=== PATIENT | female | born 1940 | race Caucasian/White ===

== ENCOUNTER → 2016-06-22 | Outpatient (CLI) | payer OTHER ==
[~2016-06-22] MED LIST: ALPR-411 PO; AMIO200T PO; AMLO-110 PO; CALC625T4 PO; CALCTAB5 PO; CIPR1TAB11 PO; CYAN10005 PO; FURO20TA PO; GLC/500 PO; LEVO125T72 PO; LISI40TA PO; MAGN400T5 PO; METO50TA16 PO; MULT-506 PO; SIMV20TA2 PO; SULF800T23 PO; WARF-246 PO
[2016-06-22 11:44] LABS: BASO % 0.4 %; BASO ABS # 0.05 K/uL (0-0.2); COMPLETE YES; EOS % 8.5 %; HEMATOCRIT 35.3 % (37-47); IG% 0.3 %; LYMPH % 17.5 %; LYMPH ABS # 2.01 K/uL (1.2-3.4); MEAN CELL VOLUME 90.1 fL (80-100); MEAN CORPUSCULAR HEMOGLOBIN 30.1 pg (25-34); MEAN CORPUSCULAR HGB CONC 33.4 g/dl (32-36); MONO % 10.1 %; NEUT % 63.2 %; PLATELET COUNT 420 K/uL (130-400); RED BLOOD COUNT 3.92 M/uL (4.2-5.4); WHITE BLOOD COUNT 11.47 K/uL (4.8-10.8)
[2016-06-22 11:54] LABS: BLOOD UREA NITROGEN 15 mg/dl (7-18); GLUCOSE 84 mg/dl (70-99)
[2016-06-22 11:55] LABS: ALT/SGPT 29 U/L (12-78); AST/SGOT 27 U/L (15-37); BUN/CREATININE RATIO 11.2 (10-20); CARBON DIOXIDE 28 mmol/L (21-32); CHLORIDE 104 mmol/L (98-107); POTASSIUM 4.1 mmol/L (3.5-5.1); SODIUM 140 mmol/L (136-145)
[2016-06-22 12:03] LABS: ALKALINE PHOSPHATASE 50 U/L (45-117); PREALBUMIN 28.6 mg/dl (20-40)
--- NOTE | 2016-06-26 12:16 | CODING QUERY MEDICAL NECESSITY ---
SUPPORTING DIAGNOSIS NEEDED A supporting diagnosis is required for the test/procedure performed on this patient in order for us to be reimbursed by the patient's insurance. Please provide a supporting diagnosis for the following test/procedure listed below next to the test name along with your signature. *If there is no additional diagnosis for this patient that would support the following test/procedure please document that below next to the test/procedure. Test(s)/Procedure(s) that require a supporting diagnosis: * VITAMIN B-12 LEVEL DIAGNOSIS: * DOS: 06/22/16 Provider Signature: Date: Thank you Karyn Kate [facility] Information Management Once completed, please kindly fax back to [phone] For questions please call [phone]
== END | disposition home or self-care (01) ==
LOC: C.LAB1850 09:34
DX: R53.1 Weakness (principal)

== ENCOUNTER → 2016-06-26 | Outpatient (CLI) | payer OTHER ==
--- NOTE | 2016-06-26 09:40 | DIAGNOSTIC IMAGING REPORT ---
HEAD CT NONCONTRAST CT DOSE: 537.48 mGy.cm HISTORY: Fall. TECHNIQUE: Multiaxial CT images of the head were performed without the use of intravenous contrast. Automated exposure control was utilized for this study. Comparison: None. Findings: The paranasal sinuses and mastoid air cells are clear. The calvarium and skull base are intact. There is no mass, hematoma, midline shift, acute infarct. White matter hypodensity is nonspecific but suggestive of microvascular ischemic change. The ventricles and sulci demonstrate mild age-related involutional changes. Punctate calcification within the james. Impression: No acute intracranial abnormality. Electronically signed by: Js Rowe M.D. 06/26/2016 9:39 AM Dictated Date/Time: 06/26/2016 9:30 AM
== END | disposition home or self-care (01) ==
LOC: C.CTS 09:18
DX: R25.1 Tremor, unspecified (principal)

== ENCOUNTER → 2016-07-24 | Outpatient (CLI) | payer OTHER ==
[2016-07-24 10:07] LABS: BASO % 1.1 %; BASO ABS # 0.14 K/uL (0-0.2); COMPLETE YES; EOS % 18.9 %; HEMATOCRIT 36.9 % (37-47); IG% 0.4 %; LYMPH % 29.3 %; LYMPH ABS # 3.79 K/uL (1.2-3.4); MEAN CELL VOLUME 91.1 fL (80-100); MEAN CORPUSCULAR HEMOGLOBIN 29.6 pg (25-34); MEAN CORPUSCULAR HGB CONC 32.5 g/dl (32-36); MEAN PLATELET VOLUME 10.8 fL (7.4-10.4); MONO % 10.7 %; NEUT % 39.6 %; PLATELET COUNT 308 K/uL (130-400); RED BLOOD COUNT 4.05 M/uL (4.2-5.4); WHITE BLOOD COUNT 12.94 K/uL (4.8-10.8)
[2016-07-24 10:43] LABS: ALT/SGPT 26 U/L (12-78); AST/SGOT 22 U/L (15-37); BLOOD UREA NITROGEN 24 mg/dl (7-18); BUN/CREATININE RATIO 20.3 (10-20); CALCIUM 9.3 mg/dl (8.5-10.1); CARBON DIOXIDE 31 mmol/L (21-32); CHLORIDE 107 mmol/L (98-107); GLUCOSE 90 mg/dl (70-99); POTASSIUM 4.4 mmol/L (3.5-5.1); SODIUM 142 mmol/L (136-145)
[2016-07-24 10:54] LABS: CHOLESTEROL 117 mg/dl (0-200); CHOLESTEROL/HDL RATIO 2.2; HDL CHOLESTEROL 53 mg/dl; LDL CHOLESTEROL CALCULATED 46 mg/dl; TRIGLYCERIDES 92 mg/dl (0-150); VERY LOW DENSITY LIPOPROT CALC 18 mg/dl
== END | disposition home or self-care (01) ==
LOC: C.LAB1850 09:14
DX: E78.5 Hyperlipidemia, unspecified (principal); E03.9 Hypothyroidism, unspecified; I10 Essential (primary) hypertension; I48.91 Unspecified atrial fibrillation

== ENCOUNTER → 2016-08-03 | Outpatient (CLI) | payer OTHER ==
[2016-08-03 09:42] LABS: BASO % 1.8 %; BASO ABS # 0.19 K/uL (0-0.2); COMPLETE YES; EOS % 15.1 %; HEMATOCRIT 36.5 % (37-47); IG% 0.4 %; LYMPH % 28.5 %; LYMPH ABS # 3.01 K/uL (1.2-3.4); MEAN CELL VOLUME 91.9 fL (80-100); MEAN CORPUSCULAR HGB CONC 32.6 g/dl (32-36); MEAN PLATELET VOLUME 11.2 fL (7.4-10.4); MONO % 12.9 %; NEUT % 41.3 %; PLATELET COUNT 260 K/uL (130-400); RED BLOOD COUNT 3.97 M/uL (4.2-5.4); WHITE BLOOD COUNT 10.56 K/uL (4.8-10.8)
--- NOTE | 2016-08-07 09:44 | CODING QUERY MEDICAL NECESSITY ---
SUPPORTING DIAGNOSIS NEEDED A supporting diagnosis is required for the test/procedure performed on this patient in order for us to be reimbursed by the patient's insurance. Please provide a supporting diagnosis for the following test/procedure listed below next to the test name along with your signature. *If there is no additional diagnosis for this patient that would support the following test/procedure please document that below next to the test/procedure. Test(s)/Procedure(s) that require a supporting diagnosis: DOS 08/03 * Vitamin B12 DIAGNOSIS: Provider Signature: Date: Thank you Jewels Girard Health Information Management Once completed, please kindly fax back to [phone] For questions please call [phone]
== END | disposition home or self-care (01) ==
LOC: C.LAB1850 07:46
DX: D72.829 Elevated white blood cell count, unspecified (principal); D64.9 Anemia, unspecified

== ENCOUNTER → 2016-10-26 | Outpatient (CLI) | payer OTHER ==
[~2016-10-26] MED LIST changes: +AMIO200T4 PO; +ATOR-54 PO; +CALC-51 PEG; +CALCTAB5; +DXY100 PO; +LEVO75TA5 PO; +PIPE1INJ11 IV; +WARF2.5T8 PO; +WARF5TAB7 PO
== END | disposition home or self-care (01) ==
LOC: C.LABSPEC 14:59
DX: R31.9 Hematuria, unspecified (principal)

== ENCOUNTER → 2016-11-09 | Outpatient (CLI) | payer OTHER ==
[~2016-11-09] MED LIST changes: -AMIO200T4 PO; -ATOR-54 PO; -CALC-51 PEG; -CALCTAB5; -DXY100 PO; -LEVO75TA5 PO; -PIPE1INJ11 IV; -WARF2.5T8 PO; -WARF5TAB7 PO
== END | disposition home or self-care (01) ==
LOC: C.LABSPEC 14:51
DX: R30.0 Dysuria (principal)

== ENCOUNTER → 2016-11-20 | Outpatient (CLI) | payer OTHER ==
--- NOTE | 2016-11-20 12:53 | DIAGNOSTIC IMAGING REPORT ---
Duplex renal artery ultrasound CLINICAL HISTORY: LEFT FLANK BRUIT COMPARISON STUDY: No previous studies for comparison. FINDINGS: Grayscale imaging was supplemented with real-time color-flow analysis and spectral wave analysis. The right kidney measured 8.8 cm in length. The left kidney measured 9.3 cm in length. The peak systolic velocity within the aorta was 79 cm/s. The peak systolic velocity within the right renal artery was 135 cm/s. The peak systolic velocity within the left renal artery was 123 cm/s. There is no evidence of renal artery stenosis by velocity criteria. The resistive indices were elevated bilaterally. IMPRESSION: No ultrasonographic evidence of renal artery stenosis. Electronically signed by: Stafnord Tyson M.D. 11/20/2016 12:51 PM Dictated Date/Time: 11/20/2016 12:49 PM
--- NOTE | 2016-11-20 13:41 | DIAGNOSTIC IMAGING REPORT ---
DUPLEX AORTA/IVC/ILIACS LTD HISTORY:76 yearsFemaleLEFT FLANK BRUIT COMPARISON: CT abdomen and pelvis 07/14/2012. TECHNIQUE: Multiple real-time sonographic images of the abdominal aorta and iliac vasculature were obtained assessing grayscale appearance, color and spectral flow. FINDINGS: Proximal abdominal aorta measures 2.2 x 2.0 cm. The mid abdominal aorta measures 1.6 x 1.3 cm. The distal abdominal aorta measures 1.4 x 1.2 cm. Mild mixed plaquing is seen throughout the abdominal aorta. Normal plug flow is seen within the aorta with peak systolic velocity 128 cm/s. Normal-appearing iliac bifurcation is noted. Right iliac artery measures up to 0.7 cm and the left measures up to 1.0 cm. Peak systolic velocity within the right iliac vasculature is 102 cm/s and on the left measures 121 cm/s. Normal phasic flow is seen within the IVC. IMPRESSION: 1. Unremarkable sonographic study of the abdominal aorta, IVC and iliac vasculature. 2. Mild atherosclerotic plaquing of the aorta without elevated velocities identified. 3. No evidence of aneurysmal dilation. The above report was generated using voice recognition software. It may contain grammatical, syntax or spelling errors. Electronically signed by: Graham Charles M.D. 11/20/2016 1:39 PM Dictated Date/Time: 11/20/2016 1:35 PM
== END | disposition home or self-care (01) ==
LOC: C.ULTR 10:23
DX: R09.89 Other specified symptoms and signs involving the circulatory and respiratory systems (principal)

== ENCOUNTER → 2016-11-23 | Outpatient (CLI) | payer OTHER ==
[~2016-11-23] MED LIST changes: -CIPR1TAB11 PO; -SULF800T23 PO
[2016-11-23 13:52] LABS: BLOOD UREA NITROGEN 19 mg/dl (7-18); BUN/CREATININE RATIO 13.7 (10-20); CALCIUM 8.9 mg/dl (8.5-10.1); CARBON DIOXIDE 28 mmol/L (21-32); CHLORIDE 112 mmol/L (98-107); GLUCOSE 84 mg/dl (70-99); MAGNESIUM 2.1 mg/dl (1.8-2.4); POTASSIUM 3.6 mmol/L (3.5-5.1); SODIUM 146 mmol/L (136-145)
== END | disposition home or self-care (01) ==
LOC: C.LAB 11:57
DX: E86.0 Dehydration (principal)

== ENCOUNTER → 2016-12-11 | Outpatient (CLI) | payer OTHER ==
[2016-12-11 14:19] LABS: INR 1.8 (0.9-1.1)
[2016-12-11 14:20] LABS: ALT/SGPT 27 U/L (12-78); AST/SGOT 27 U/L (15-37); BLOOD UREA NITROGEN 20 mg/dl (7-18); BUN/CREATININE RATIO 15.1 (10-20); CARBON DIOXIDE 26 mmol/L (21-32); CHLORIDE 109 mmol/L (98-107); GLUCOSE 74 mg/dl (70-99); MAGNESIUM 2.6 mg/dl (1.8-2.4); SODIUM 142 mmol/L (136-145)
[2016-12-11 14:24] LABS: FERRITIN 53.9 ng/ml (8.0-388.0)
== END | disposition home or self-care (01) ==
LOC: C.LABSPEC 13:18
DX: G47.00 Insomnia, unspecified (principal); E11.9 Type 2 diabetes mellitus without complications; N18.3 Chronic kidney disease, stage 3 (moderate); E55.9 Vitamin D deficiency, unspecified

== ENCOUNTER → 2016-12-17 | Outpatient (CLI) | payer OTHER ==
[2016-12-17 15:15] LABS: BASO % 0.9 %; BASO ABS # 0.09 K/uL (0-0.2); COMPLETE YES; EOS % 4.3 %; HEMATOCRIT 34.4 % (37-47); IG% 0.4 %; LYMPH % 30.2 %; LYMPH ABS # 3.18 K/uL (1.2-3.4); MEAN CELL VOLUME 93.2 fL (80-100); MEAN CORPUSCULAR HEMOGLOBIN 29.3 pg (25-34); MEAN CORPUSCULAR HGB CONC 31.4 g/dl (32-36); MEAN PLATELET VOLUME 10.8 fL (7.4-10.4); MONO % 10.6 %; NEUT % 53.6 %; PLATELET COUNT 353 K/uL (130-400); RED BLOOD COUNT 3.69 M/uL (4.2-5.4); WHITE BLOOD COUNT 10.53 K/uL (4.8-10.8)
[2016-12-18 07:51] LABS: ESTIMATED AVERAGE GLUCOSE 114 mg/dl; HA1C FLAG Normal (Normal)
== END | disposition home or self-care (01) ==
LOC: C.LABSPEC 14:59
DX: E11.9 Type 2 diabetes mellitus without complications (principal)

== ENCOUNTER → 2016-12-25 | Outpatient (CLI) | payer OTHER ==
[2016-12-25 12:49] LABS: INR 1.9 (0.9-1.1)
--- NOTE | 2017-01-08 07:43 | CODING QUERY NO DIAGNOSIS ---
TREATMENT RENDERED WITHOUT A DIAGNOSIS : 01/08/17 To promote full compliance with coding requirements relating to patient care, physician participation is requested in all cases of biologist aide uncertainty. Please assist us with providing a diagnosis/symptom for the test(s) below: A diagnosis/symptom was not documented on your Order. A valid diagnosis/symptom is required to bill all insurances. Please remember that we are unable to code a diagnosis of rule out, probable, possible, questionable, or suspected. Tests that require a diagnosis: DOS: 12/25/16 * PROTHROMBIN TIME PRO DIAGNOSIS: Provider Signature: Date: Thank you Tara De Jesus Health Information Management Once completed, please kindly fax back to [phone] For questions please call [phone]
== END | disposition home or self-care (01) ==
LOC: C.LABSPEC 12:09
PROVIDERS: ATTEND Internal Medicine Interventional Cardiology
DX: I48.0 Paroxysmal atrial fibrillation (principal)

== ENCOUNTER → 2017-01-01 | Outpatient (CLI) | payer OTHER ==
[2017-01-01 10:41] LABS: INR 1.9 (0.9-1.1); PROTHROMBIN TIME (PATIENT) 21.2 SECONDS (9.0-12.0)
== END | disposition home or self-care (01) ==
LOC: C.LABSPEC 10:21
PROVIDERS: ATTEND Internal Medicine Interventional Cardiology
DX: Z79.01 Long term (current) use of anticoagulants (principal); Z51.81 Encounter for therapeutic drug level monitoring

== ENCOUNTER → 2017-01-08 | Outpatient (CLI) | payer OTHER ==
[~2017-01-08] MED LIST changes: -GLC/500 PO; -LISI40TA PO
[2017-01-08 12:34] LABS: INR 2.6 (0.9-1.1); PROTHROMBIN TIME (PATIENT) 28.7 SECONDS (9.0-12.0)
== END | disposition home or self-care (01) ==
LOC: C.LABSPEC 11:50
PROVIDERS: ATTEND Internal Medicine Interventional Cardiology
DX: Z79.01 Long term (current) use of anticoagulants (principal); Z51.81 Encounter for therapeutic drug level monitoring

== ENCOUNTER → 2017-01-14 | Outpatient (CLI) | payer OTHER ==
[2017-01-14 13:28] LABS: INR 2.6 (0.9-1.1); PROTHROMBIN TIME (PATIENT) 28.9 SECONDS (9.0-12.0)
--- NOTE | 2017-01-21 08:59 | CODING QUERY NO DIAGNOSIS ---
Valid Physician Order Needed A valid physician order must be submitted in order to properly bill for the service(s) provided, including date of service(s), valid diagnosis, and physician signature. If these tests are done on a recurring basis the original physican order must be submitted in order to code and bill for the service(s) provided. Please fax us the original, signed physician order so that we may expedite billing to [phone] DOS 01/14/17 * PROTHROMBIN TIME Thank you Karla Hernandes [facility] Information Management
--- NOTE | 2017-01-29 09:52 | CODING QUERY NO DIAGNOSIS ---
TREATMENT RENDERED WITHOUT A DIAGNOSIS To promote full compliance with coding requirements relating to patient care, physician participation is requested in all cases of arts and humanities council director uncertainty. Please assist us with providing a diagnosis/symptom for the test(s) below: A diagnosis/symptom was not documented on your Order. A valid diagnosis/symptom is required to bill all insurances. Please remember that we are unable to code a diagnosis of rule out, probable, possible, questionable, or suspected. DATE OF SERVICE: 01/14/17 Tests that require a diagnosis: * PROTHROMBIN TIME DIAGNOSIS: Provider Signature: Date: Thank you Karla Cruz [facility] Information Management Once completed, please kindly fax back to [phone] For questions please call [phone]
== END | disposition home or self-care (01) ==
LOC: C.LABSPEC 12:11
DX: I48.91 Unspecified atrial fibrillation (principal)

== ENCOUNTER 2017-03-10 14:18 | Emergency (ER) | payer OTHER ==
[~2017-03-10] VITALS: Ht 162.6 cm; Wt 50.0 kg
[2017-03-10 14:21] VITALS: TEMP 36.3; Ht 162.6 cm; Wt 50.0 kg
[2017-03-10] MEDS ORDERED: SODIUM CHLORIDE 0.9% 1000ML 1,000 ML IV STA (14:44)
[2017-03-10] MEDS ORDERED: ATOR-54 PO (14:55)
[2017-03-10] MEDS ORDERED: AMIO200T4 PO (14:55)
[2017-03-10] MEDS ORDERED: WARF2.5T8 PO (14:55)
[2017-03-10] MEDS ORDERED: WARF5TAB7 PO (14:55)
[2017-03-10] MEDS ORDERED: CALCTAB5 (14:55)
--- NOTE | 2017-03-10 15:09 | DIAGNOSTIC IMAGING REPORT ---
R PELVIS/UNILATERAL HIP 2-3VIEWS CLINICAL HISTORY: Fall. Right hip pain. COMPARISON: CT of the abdomen and pelvis July 14, 2012. FINDINGS: Alignment of the right hip is anatomic. There is no proximal right femoral fracture. Irregularity along the symphysis pubis is likely chronic. No definite acute fracture is identified within the pelvis or hips. IMPRESSION: No acute fracture within the pelvis or hips. Irregularity along the symphysis pubis is likely chronic. Electronically signed by: Davis Thompson M.D. 03/10/2017 3:08 PM Dictated Date/Time: 03/10/2017 3:06 PM
--- NOTE | 2017-03-10 15:11 | DIAGNOSTIC IMAGING REPORT ---
CHEST ONE VIEW PORTABLE HISTORY: 77 years-old Female EVALUATE FOR TRAUMA/INJURY acute chest injury status post trauma COMPARISON: Chest radiographs 11/20/2016 TECHNIQUE: Portable upright AP view of the chest FINDINGS: Cardiac silhouette is moderately enlarged, unchanged. Atherosclerosis of the aorta. There are calcifications of the tracheobronchial tree. Mild biapical pleural-parenchymal scarring without pneumothorax, pleural effusion or focal airspace consolidation. Chronic blunting the left costophrenic angle with chronic background interstitial coarsening. Hyperinflation with suggested emphysema. Linear subsegmental scarring or atelectasis of the right lung base, unchanged. The bones are grossly intact. IMPRESSION: No acute cardiopulmonary process. The above report was generated using voice recognition software. It may contain grammatical, syntax or spelling errors. Electronically signed by: Graham Charles M.D. 03/10/2017 3:10 PM Dictated Date/Time: 03/10/2017 3:08 PM
[2017-03-10 15:32] VITALS: O2SAT 99
[2017-03-10 15:54] LABS: BASO % 0.2 %; BASO ABS # 0.04 K/uL (0-0.2); COMPLETE YES; HEMATOCRIT 33.5 % (37-47); IG% 0.4 %; LYMPH % 6.7 %; LYMPH ABS # 1.08 K/uL (1.2-3.4); MEAN CELL VOLUME 92.5 fL (80-100); MEAN CORPUSCULAR HEMOGLOBIN 29.6 pg (25-34); MEAN CORPUSCULAR HGB CONC 31.9 g/dl (32-36); MEAN PLATELET VOLUME 10.5 fL (7.4-10.4); MONO % 6.1 %; NEUT % 86.6 %; PLATELET COUNT 322 K/uL (130-400); RED BLOOD COUNT 3.62 M/uL (4.2-5.4); WHITE BLOOD COUNT 16.14 K/uL (4.8-10.8)
[2017-03-10 15:59] LABS: INR 3.5 (0.9-1.1); PROTHROMBIN TIME (PATIENT) 39.8 SECONDS (9.0-12.0)
--- NOTE | 2017-03-10 16:01 | DIAGNOSTIC IMAGING REPORT ---
HEAD WITHOUT CONTRAST (CT) CLINICAL HISTORY: 77 years-old Female with EVALUATE FOR TRAUMA/INJURY. Acute altered mental status acute altered mental status with fall TECHNIQUE: Multiple axial CT images of the head were obtained without contrast. A dose lowering technique was utilized adhering to the principles of ALARA. CT DOSE: 679.75 mGycm COMPARISON: CT head 06/26/2016. FINDINGS: No acute intracranial hemorrhage, midline shift, mass, large territorial ischemia or abnormal extra-axial collection. Moderate atrophy, most pronounced within the frontal lobes. Unchanged linear calcification of the right james. Background chronic microvascular ischemic changes. The calvarium is intact. The paranasal sinuses, mastoid air cells, and middle ear cavities are clear. IMPRESSION: No acute intracranial abnormality. The above report was generated using voice recognition software. It may contain grammatical, syntax or spelling errors. Electronically signed by: Graham Charles M.D. 03/10/2017 4:00 PM Dictated Date/Time: 03/10/2017 3:58 PM
[2017-03-10 16:03] LABS: BUN/CREATININE RATIO 16.5 (10-20); CALCIUM 9.7 mg/dl (8.5-10.1); CREATININE 1.59 mg/dl (0.60-1.20); POTASSIUM 4.5 mmol/L (3.5-5.1)
--- NOTE | 2017-03-10 16:03 | DIAGNOSTIC IMAGING REPORT ---
CERVICAL SPINE W/O CT DOSE: 317.72 mGycm HISTORY: Trauma. Pain. EVALUATE FOR TRAUMA/INJURY TECHNIQUE: Multiaxial CT images of the cervical spine were performed and reformatted in the sagittal and coronal plane without the use of contrast. A dose lowering technique was utilized adhering to the principles of ALARA. COMPARISON: None. FINDINGS: Grade 1 anterolisthesis C5 on C6. This is felt to be secondary to degenerative changes of posterior elements. Dural body stature is normal. No evidence for compression deformity. Fibrotic change pulmonary apices considered chronic. IMPRESSION: No fractures within the cervical spine. Moderate degenerative change. The above report was generated using voice recognition software. It may contain grammatical, syntax or spelling errors. Electronically signed by: Kodi Tanner M.D. 03/10/2017 4:02 PM Dictated Date/Time: 03/10/2017 4:00 PM
--- NOTE | 2017-03-10 16:09 | DIAGNOSTIC IMAGING REPORT ---
PELVIS NO IV/ORAL CONT (CT) HISTORY: 77 years-old Female fall r hip pain acute right-sided hip pain status post fall COMPARISON: Pelvis and right hip radiographs of same day TECHNIQUE: Multiple axial CT images of the pelvis were obtained without contrast. A dose lowering technique was used consistent with the principals of SIMONE. FINDINGS: Mild nonspecific right perinephric stranding. Extensive sigmoid colonic diverticulosis. Prior hysterectomy. Soft tissue fullness in the region of the right inguinal region suggest prior hernia repair. There is extensive atherosclerosis of the aorta and iliac vasculature. No bulky adenopathy. No retroperitoneal hemorrhage. There is a large partially imaged collection adjacent to the right greater trochanter with extensive surrounding edema measuring up to 7.0 x 4.5 x 10.6 cm suggesting post traumatic hematoma. No intramuscular extension. Severe facet arthrosis of the lower lumbar levels. Severe intervertebral disc space narrowing and partial bony fusion at L5-S1. No sacral insufficiency fracture identified. Degenerative changes of the SI joints and pubic symphysis. No pelvic fracture identified. Imaged bilateral proximal femora appear intact. The bones appear osteopenic. IMPRESSION: 1. Large partially imaged subcutaneous hematoma of the right lateral upper thigh adjacent to the right greater trochanter measures up to 10.6 cm. No fracture or dislocation identified. 2. Osteopenia with degenerative changes as above. The above report was generated using voice recognition software. It may contain grammatical, syntax or spelling errors. Electronically signed by: Graham Charles M.D. 03/10/2017 4:08 PM Dictated Date/Time: 03/10/2017 4:01 PM
[2017-03-10 17:45] VITALS: BP 96/65; PULSE 69; O2SAT 99
--- NOTE | 2017-03-10 19:42 | EMERGENCY ROOM VISIT NOTE ---
History Report prepared by Elijah: Zahra Hunter Under the Supervision of: Dr. Jacobo eBrger D.O. 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 The patient was getting up to take her medicine. She was using her walker. She turned too fast and fell onto her right side. She denies any LOC and remembers everything. She was able to walk after the fall. She did not hit her head. She feels sore in her right shoulder, right 1st rib, right elbow, and right hip. The hip pain is the worst. She denies any headache, neck pain, or left sided pain. She is on Coumadin. Her tetanus is up to date. 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 Review of Systems See HPI for pertinent positives & negatives. A total of 10 systems reviewed and were otherwise negative. Past Medical & Surgical Medical Problems: (1) Atrial fibrillation (2) Cholecystectomy (3) Diverticulitis (4) Hernia repair (5) Hysterectomy Family History Cancer Diabetes mellitus Gallbladder disease Hypertension Social History Smoking Status: Never Smoker Alcohol Use: none Drug Use: none Marital Status: Housing Status: lives with significant other Occupation Status: retired Current/Historical Medications Scheduled Amiodarone Hcl (Cordarone), 1 TAB PO DAILY Amlodipine (Norvasc), 5 MG PO DAILY Atorvastatin (Lipitor), 1 TAB PO DAILY Calcium Polycarbophil (Fiber Laxative), 625 MG PO BID Cyanocobalamin (Vitamin B-12), 1,000 MCG PO DAILY Furosemide (Lasix), 20 MG PO DAILY Levothyroxine Sodium (Synthroid), 0.0625 MCG PO DAILY Magnesium Oxide (Mag-Ox), 400 MG PO DAILY Metoprolol Tartrate (Lopressor) (Lopressor), 50 MG PO DAILY Multivitamin (Multivitamin), 1 TABLET PO DAILY Warfarin Sod (Jantoven), 2.5 MG PO ONLY ON WED Warfarin Sod (Jantoven), 5 MG PO DAILY EXCEPT ON WED Miscellaneous Medications Calcium Carbonate (Caltrate 600) Allergies Coded Allergies: Quinolones (Unverified Adverse Reaction, Mild, HIVES, 03/10/17) Tendonitis Sulfamethoxazole w/Trimethoprim (Unverified Adverse Reaction, Mild, GI SYMPTOMS, 03/10/17) Physical Exam Vital Signs Date Time Temp Pulse Resp B/P (MAP) Pulse Ox O2 Delivery O2 Flow Rate FiO2 03/10/17 17:45 69 16 96/65 99 03/10/17 17:06 69 16 96/65 99 03/10/17 15:34 65 18 99 Room Air 03/10/17 15:32 99 Room Air 03/10/17 15:29 99 Room Air 03/10/17 14:21 36.3 91 18 103/63 96 Room Air Physical Exam GENERAL: alert, well appearing, well nourished, no distress, non-toxic HEAD: normal cephalic, atraumatic EYE EXAM: normal conjunctiva, PERRL and EOM's grossly intact OROPHARYNX: no exudate, no erythema, lips, buccal mucosa, and tongue normal and mucous membranes are moist EARS: TMs clear b/l NECK: supple, no nuchal rigidity, no adenopathy, non-tender CHEST: stable to compression anteriorly and posteriorly LUNGS: clear to auscultation. Normal chest wall mechanics HEART: no murmurs, S1 normal and S2 normal ABDOMEN: abdomen soft, non-tender, normo-active bowel sounds, no masses, no rebound or guarding. PELVIS: stable to compression anteriorly and posteriorly BACK: Back is symmetrical on inspection and there is no deformity, no midline tenderness, no CVA tenderness. UPPER EXTREMITIES: Bruising to the right elbow, full active and passive range of motion of all joints without tenderness to palpation LOWER EXTREMITIES: Bruising to the right hip, full active and passive range of motion of all joints without tenderness to palpation with the exception of the right hip NEURO EXAM: Normal sensorium, cranial nerves II-XII grossly intact, normal speech, no gross weakness of arms, no gross weakness of legs. GCS: 15. Medical Decision & Procedures ER Provider Diagnostic Interpretation: Radiology results as stated below per my review and the radiologist's interpretation: R PELVIS/UNILATERAL HIP 2-3VIEWS CLINICAL HISTORY: Fall. Right hip pain. COMPARISON: CT of the abdomen and pelvis July 14, 2012. FINDINGS: Alignment of the right hip is anatomic. There is no proximal right femoral fracture. Irregularity along the symphysis pubis is likely chronic. No definite acute fracture is identified within the pelvis or hips. IMPRESSION: No acute fracture within the pelvis or hips. Irregularity along the symphysis pubis is likely chronic. Electronically signed by: Davis Thompson M.D. 03/10/2017 3:08 PM Dictated Date/Time: 03/10/2017 3:06 PM CHEST ONE VIEW PORTABLE HISTORY: 77 years-old Female EVALUATE FOR TRAUMA/INJURY acute chest injury status post trauma COMPARISON: Chest radiographs 11/20/2016 TECHNIQUE: Portable upright AP view of the chest FINDINGS: Cardiac silhouette is moderately enlarged, unchanged. Atherosclerosis of the aorta. There are calcifications of the tracheobronchial tree. Mild biapical pleural-parenchymal scarring without pneumothorax, pleural effusion or focal airspace consolidation. Chronic blunting the left costophrenic angle with chronic background interstitial coarsening. Hyperinflation with suggested emphysema. Linear subsegmental scarring or atelectasis of the right lung base, unchanged. The bones are grossly intact. IMPRESSION: No acute cardiopulmonary process. The above report was generated using voice recognition software. It may contain grammatical, syntax or spelling errors. Electronically signed by: Graham Charles M.D. 03/10/2017 3:10 PM Dictated Date/Time: 03/10/2017 3:08 PM HEAD WITHOUT CONTRAST (CT) CLINICAL HISTORY: 77 years-old Female with EVALUATE FOR TRAUMA/INJURY. Acute altered mental status acute altered mental status with fall TECHNIQUE: Multiple axial CT images of the head were obtained without contrast. A dose lowering technique was utilized adhering to the principles of ALARA. CT DOSE: 679.75 mGycm COMPARISON: CT head 06/26/2016. FINDINGS: No acute intracranial hemorrhage, midline shift, mass, large territorial ischemia or abnormal extra-axial collection. Moderate atrophy, most pronounced within the frontal lobes. Unchanged linear calcification of the right james. Background chronic microvascular ischemic changes. The calvarium is intact. The paranasal sinuses, mastoid air cells, and middle ear cavities are clear. IMPRESSION: No acute intracranial abnormality. The above report was generated using voice recognition software. It may contain grammatical, syntax or spelling errors. Electronically signed by: Graham Charles M.D. 03/10/2017 4:00 PM Dictated Date/Time: 03/10/2017 3:58 PM CERVICAL SPINE W/O CT DOSE: 317.72 mGycm HISTORY: Trauma. Pain. EVALUATE FOR TRAUMA/INJURY TECHNIQUE: Multiaxial CT images of the cervical spine were performed and reformatted in the sagittal and coronal plane without the use of contrast. A dose lowering technique was utilized adhering to the principles of ALARA. COMPARISON: None. FINDINGS: Grade 1 anterolisthesis C5 on C6. This is felt to be secondary to degenerative changes of posterior elements. Dural body stature is normal. No evidence for compression deformity. Fibrotic change pulmonary apices considered chronic. IMPRESSION: No fractures within the cervical spine. Moderate degenerative change. The above report was generated using voice recognition software. It may contain grammatical, syntax or spelling errors. Electronically signed by: Kodi Tanner M.D. 03/10/2017 4:02 PM Dictated Date/Time: 03/10/2017 4:00 PM PELVIS NO IV/ORAL CONT (CT) HISTORY: 77 years-old Female fall r hip pain acute right-sided hip pain status post fall COMPARISON: Pelvis and right hip radiographs of same day TECHNIQUE: Multiple axial CT images of the pelvis were obtained without contrast. A dose lowering technique was used consistent with the principals of ALARA. FINDINGS: Mild nonspecific right perinephric stranding. Extensive sigmoid colonic diverticulosis. Prior hysterectomy. Soft tissue fullness in the region of the right inguinal region suggest prior hernia repair. There is extensive atherosclerosis of the aorta and iliac vasculature. No bulky adenopathy. No retroperitoneal hemorrhage. There is a large partially imaged collection adjacent to the right greater trochanter with extensive surrounding edema measuring up to 7.0 x 4.5 x 10.6 cm suggesting post traumatic hematoma. No intramuscular extension. Severe facet arthrosis of the lower lumbar levels. Severe intervertebral disc space narrowing and partial bony fusion at L5-S1. No sacral insufficiency fracture identified. Degenerative changes of the SI joints and pubic symphysis. No pelvic fracture identified. Imaged bilateral proximal femora appear intact. The bones appear osteopenic. IMPRESSION: 1. Large partially imaged subcutaneous hematoma of the right lateral upper thigh adjacent to the right greater trochanter measures up to 10.6 cm. No fracture or dislocation identified. 2. Osteopenia with degenerative changes as above. The above report was generated using voice recognition software. It may contain grammatical, syntax or spelling errors. Electronically signed by: Graham Charles M.D. 03/10/2017 4:08 PM Dictated Date/Time: 03/10/2017 4:01 PM Laboratory Results 03/10/17 15:18 Red Blood Count 3.62, Mean Corpuscular Volume 92.5, Mean Corpuscular Hemoglobin 29.6, Mean Corpuscular Hemoglobin Concent 31.9, Mean Platelet Volume 10.5, Neutrophils (%) (Auto) 86.6, Lymphocytes (%) (Auto) 6.7, Monocytes (%) (Auto) 6.1, Eosinophils (%) (Auto) 0.0, Basophils (%) (Auto) 0.2, Neutrophils # (Auto) 13.97, Lymphocytes # (Auto) 1.08, Monocytes # (Auto) 0.99, Eosinophils # (Auto) 0.00, Basophils # (Auto) 0.04 03/10/17 15:18 Test 03/10/17 15:18 03/10/17 15:24 White Blood Count 16.14 K/uL (4.8-10.8) Red Blood Count 3.62 M/uL (4.2-5.4) Hemoglobin 10.7 g/dL (12.0-16.0) Hematocrit 33.5 % (37-47) Mean Corpuscular Volume 92.5 fL (80-100) Mean Corpuscular Hemoglobin 29.6 pg (25-34) Mean Corpuscular Hemoglobin Concent 31.9 g/dl (32-36) Platelet Count 322 K/uL (130-400) Mean Platelet Volume 10.5 fL (7.4-10.4) Neutrophils (%) (Auto) 86.6 % Lymphocytes (%) (Auto) 6.7 % Monocytes (%) (Auto) 6.1 % Eosinophils (%) (Auto) 0.0 % Basophils (%) (Auto) 0.2 % Neutrophils # (Auto) 13.97 K/uL (1.4-6.5) Lymphocytes # (Auto) 1.08 K/uL (1.2-3.4) Monocytes # (Auto) 0.99 K/uL (0.11-0.59) Eosinophils # (Auto) 0.00 K/uL (0-0.5) Basophils # (Auto) 0.04 K/uL (0-0.2) RDW Standard Deviation 49.9 fL (36.4-46.3) RDW Coefficient of Variation 14.6 % (11.5-14.5) Immature Granulocyte % (Auto) 0.4 % Immature Granulocyte # (Auto) 0.06 K/uL (0.00-0.02) Prothrombin Time 39.8 SECONDS (9.0-12.0) Prothromb Time International Ratio 3.5 (0.9-1.1) Anion Gap 8.0 mmol/L (3-11) Est Creatinine Clear Calc Drug Dose 22.6 ml/min Estimated GFR () 35.4 Estimated GFR (Non- 30.6 BUN/Creatinine Ratio 16.5 (10-20) Calcium Level 9.7 mg/dl (8.5-10.1) Total Bilirubin 0.4 mg/dl (0.2-1) Direct Bilirubin 0.1 mg/dl (0-0.2) Aspartate Amino Transf (AST/SGOT) 32 U/L (15-37) Alanine Aminotransferase (ALT/SGPT) 29 U/L (12-78) Alkaline Phosphatase 58 U/L (45-117) Total Protein 7.7 gm/dl (6.4-8.2) Albumin 3.9 gm/dl (3.4-5.0) Bedside Glucose 150 mg/dl (70-90) Laboratory results per my review. Medications Administered Medications (Trade) Dose Ordered Sig/Khris Route Start Time Stop Time Status Last Admin Dose Admin Sodium Chloride 1,000 ml @ 999 mls/hr Q1H1M STAT IV 03/10/17 14:44 03/10/17 15:44 DC 03/10/17 15:34 999 MLS/HR ED Course ED COURSE: Vital signs were reviewed and showed normal vitals. The patients medical record was reviewed The above diagnostic studies were performed and reviewed. ED treatments and interventions as stated above. 1429: The patient was evaluated in room C10. A complete history and physical examination was performed. 1444: NSS 1000 ml @ 999 mls/hr IV. 1635: Upon reevaluation, the patient is resting comfortably. I discussed my findings with the patient and she understands and agrees with the treatment plan. Based on the patients age, coexisting illnesses, exam and lab findings the decision to treat as an outpatient was made. The patient remained stable while under my care. The patient appeared well at the time of discharge. Medical Decision Differential diagnoses include major intracranial, cervical, spinal, thoracic, abdominal, pelvic and neurologic injury. Fracture, contusion, sprain, strain, laceration, abrasions included as well. Patient is a 77-year-old female who presents to ER following a mechanical fall. Patient is taking Coumadin. She complains of right hip pain. She does have a bruised her right elbow but has no pain. Denies loss consciousness. CBC shows a leukocytosis of 16,000 which I favor secondary to the fall. She has no other complaints. No signs of infection. BMP has a creatinine of 1.5. LFTs all of bilirubin was unremarkable. INR was slightly elevated at 3.5. I instructed them to hold her Coumadin today. CT of her head and cervical spine show no acute traumatic injury. X-ray of the hip and pelvis show no fracture. CT of the pelvis and hip show no fracture. Patient was updated regards to her findings. She requests to be discharged. I felt this is reasonable. Discussed with Pt concerning signs and symptoms to watch out for. Pt was instructed to follow up with their PCP and discussed with the patient their option to return to the ED at anytime for persistent or worsening symptoms. The appropriate anticipatory guidance and out-patient management, including indications for return to the emergency department, were explained at length to the patient and understood. Medication Reconcilliation Current Medication List: was personally reviewed by me Blood Pressure Screening Patient's blood pressure: Normal blood pressure Blood pressure disposition: Did not require urgent referral Impression Primary Impression: Contusion of right hip Additional Impressions: Abrasion of right elbow Leukocytosis Scribe Attestation The scribe's documentation has been prepared under my direction and personally reviewed by me in its entirety. I confirm that the note above accurately reflects all work, treatment, procedures, and medical decision making performed by me. Departure Information Dispostion Home / Self-Care Referrals Alex Rizvi Jr,D.O. (PCP) Forms HOME CARE DOCUMENTATION FORM, IMPORTANT VISIT INFORMATION Patient Instructions ED Contusion Hip, [facility] Additional Instructions Please follow up with your primary care doctor with in the next 24 hours. Any worsening of your symptoms, please return to the ED immediately. This includes any fevers greater than 100.4, worsening pain, chest pain, shortness breath, persistent nausea, vomiting, unable to eat or drink, or any other concerning signs or symptoms from your standpoint. Please use ice as needed along with Tylenol. Please refrain from taking your Coumadin tonight as it is slightly elevated. Problem Qualifiers Primary Impression: Contusion of right hip Encounter type: initial encounter Qualified Codes: S70.01XA - Contusion of right hip, initial encounter Additional Impressions: Abrasion of right elbow Encounter type: initial encounter Qualified Codes: S50.311A - Abrasion of right elbow, initial encounter Leukocytosis Leukocytosis type: unspecified Qualified Codes: D72.829 - Elevated white blood cell count, unspecified
== END 2017-03-10 17:45 | disposition home or self-care (01) ==
LOC: C.EDB 14:20 → C.EDC 17:45
DX: S70.01XA Contusion of right hip, initial encounter (principal); S50.311A Abrasion of right elbow, initial encounter; D72.829 Elevated white blood cell count, unspecified; W19.XXXA Unspecified fall, initial encounter; I48.91 Unspecified atrial fibrillation; K57.92 Diverticulitis of intestine, part unspecified, without perforation or abscess without bleeding; Z83.3 Family history of diabetes mellitus; Z82.49 Family history of ischemic heart disease and other diseases of the circulatory system; Z79.01 Long term (current) use of anticoagulants

== ENCOUNTER 2017-03-12 18:54 | Inpatient (IN) | payer OTHER ==
[~2017-03-12] VITALS: Ht 162.6 cm; Wt 54.5 kg
[~2017-03-12 18:54] MED LIST changes: -ALPR-411 PO; -AMIO200T PO; +AMIO200T4 PO; +ATOR-54 PO; +CALCTAB5; -CALCTAB5 PO; -SIMV20TA2 PO; -WARF-246 PO; +WARF2.5T8 PO; +WARF5TAB7 PO
--- NOTE | 2017-03-12 19:13 | EMERGENCY ROOM VISIT NOTE ---
History Report prepared by Elijah: Hermes Wheeler Under the Supervision of: Dr. Lindsay Carpenter M.D. First contact with patient: 18:56 Chief Complaint: WEAKNESS Stated Complaint: WEAKNESS, DECREASED MOBILITY, FALLS History of Present Illness The patient is a 77 year old female who presents to the Emergency Room with complaints of worsening weakness to her legs beginning two days ago. EMS states the patient fell yesterday after being evaluated by her PCP. They report she has had decreased mobility since. EMS notes the patient had a bowel movement on the couch today because she could not get up to go to the restroom. The patient states she is taking Coumadin. She reports she fell two days ago, and had a negative work up. The patient notes she did not hit her head. She states she was able to get around after the fall. The patient reports she fell again yesterday, and this time she did hit her head. She notes it is difficult for her to stand up because she is so weak. She denies vomiting and having blood in her stool. Source of History: patient, EMS Onset: two days ago Position: leg (bilateral) Quality: other (weakness) Timing: worsening Associated Symptoms: No vomiting Note: Associated symptoms: decrease mobility Denies: blood in stool Review of Systems See HPI for pertinent positives & negatives. A total of 10 systems reviewed and were otherwise negative. Past Medical & Surgical Medical Problems: (1) Atrial fibrillation (2) Cholecystectomy (3) Diverticulitis (4) Hernia repair (5) Hysterectomy (6) Symptomatic anemia Family History Cancer Diabetes mellitus Gallbladder disease Hypertension Social History Smoking Status: Never Smoker Alcohol Use: none Drug Use: none Marital Status: Housing Status: lives with significant other Occupation Status: retired Current/Historical Medications Scheduled Amiodarone Hcl (Cordarone), 1 TAB PO DAILY Amlodipine (Norvasc), 5 MG PO DAILY Atorvastatin (Lipitor), 1 TAB PO DAILY Calcium Carbonate-Vitamin D (Calcium), 1 TAB PEG DAILY Calcium Polycarbophil (Fiber Laxative), 625 MG PO BID Cyanocobalamin (Vitamin B-12), 1,000 MCG PO DAILY Furosemide (Lasix), 20 MG PO DAILY Levothyroxine Sodium (Levothyroxine Sodium), 75 MCG PO DAILY Magnesium Oxide (Mag-Ox), 400 MG PO DAILY Metoprolol Tartrate (Lopressor) (Lopressor), 50 MG PO DAILY Multivitamin (Multivitamin), 1 TABLET PO DAILY Warfarin Sod (Jantoven), 2.5 MG PO ONLY ON WED Warfarin Sod (Jantoven), 5 MG PO DAILY EXCEPT ON WED Allergies Coded Allergies: Quinolones (Unverified Adverse Reaction, Mild, HIVES, 03/10/17) Tendonitis Sulfamethoxazole w/Trimethoprim (Unverified Adverse Reaction, Mild, GI SYMPTOMS, 03/10/17) Physical Exam Vital Signs Date Time Temp Pulse Resp B/P (MAP) Pulse Ox O2 Delivery O2 Flow Rate FiO2 03/12/17 20:48 81 03/12/17 20:44 81 19 101/46 99 Room Air 03/12/17 19:01 36.9 80 20 126/53 96 Room Air Physical Exam Vital signs reviewed. General: Pale-appearing 77 year old female, in no significant distress. HEENT: No scleral icterus, Pale conjunctiva. PERRLA, neck supple. Atraumatic. Cardiovascular: Regular rate and rhythm, no extra sounds. Pulmonary: Clear to auscultation bilaterally, normal work of breathing. Abdomen: Soft, nontender, nondistended, positive bowel sounds. Musculoskeletal: Atraumatic, no peripheral edema. Large hematoma to the right hip. Cervical and thoracic spine are non-tender. No step off. No deformity. Neurologic: Patient awake alert and oriented x 3, generalized weakness but equal strength in all 4 extremities. Skin: Warm, dry, no rash, large hematoma as described above. Medical Decision & Procedures ER Provider Diagnostic Interpretation: CT results as stated below per my review and radiologist interpretation: CT SCAN OF THE BRAIN WITHOUT IV CONTRAST CLINICAL HISTORY: Fall. Weakness. COMPARISON STUDY: CT the brain dated 03/10/2017. TECHNIQUE: Unenhanced axial CT scan of the brain is performed from the vertex to the skull base. CT DOSE: 537.48 mGy.cm FINDINGS: Brain parenchyma: There are age-related involutional changes noting minimal subcortical and periventricular microangiopathic change. There is no hemorrhage, mass effect, or evidence of acute territorial ischemia by CT criteria. Dockery-white matter is preserved. No extra-axial fluid collection is seen. A calcification in the brain stem is unchanged. Ventricles, sulci, cisterns: Prominent secondary to involutional change. Intracranial vasculature: There is atherosclerotic calcification of the cavernous carotid arteries. Calvarium: The skeletal structures are osteopenic. No depressed calvarial fracture is seen. Sinuses and mastoids: The visualized paranasal sinuses are clear. The mastoid air cells are well pneumatized. Orbits: The bony orbits are grossly intact. IMPRESSION: There is no hemorrhage, mass effect, or evidence of acute territorial ischemia by CT criteria. Electronically signed by: Yuan Camargo M.D. 03/12/2017 8:30 PM Dictated Date/Time: 03/12/2017 8:28 PM Laboratory Results 03/12/17 19:55 Red Blood Count 2.19, Mean Corpuscular Volume 90.9, Mean Corpuscular Hemoglobin 29.7, Mean Corpuscular Hemoglobin Concent 32.7, Mean Platelet Volume 9.9, Neutrophils (%) (Auto) 78.8, Lymphocytes (%) (Auto) 7.6, Monocytes (%) (Auto) 12.7, Eosinophils (%) (Auto) 0.0, Basophils (%) (Auto) 0.1, Neutrophils # (Auto ) 19.81, Lymphocytes # (Auto) 1.91, Monocytes # (Auto) 3.20, Eosinophils # (Auto ) 0.00, Basophils # (Auto) 0.02 03/12/17 19:55 Test 03/12/17 19:55 03/12/17 19:59 White Blood Count 25.15 K/uL (4.8-10.8) Red Blood Count 2.19 M/uL (4.2-5.4) Hemoglobin 6.5 g/dL (12.0-16.0) Hematocrit 19.9 % (37-47) Mean Corpuscular Volume 90.9 fL (80-100) Mean Corpuscular Hemoglobin 29.7 pg (25-34) Mean Corpuscular Hemoglobin Concent 32.7 g/dl (32-36) Platelet Count 288 K/uL (130-400) Mean Platelet Volume 9.9 fL (7.4-10.4) Neutrophils (%) (Auto) 78.8 % Lymphocytes (%) (Auto) 7.6 % Monocytes (%) (Auto) 12.7 % Eosinophils (%) (Auto) 0.0 % Basophils (%) (Auto) 0.1 % Neutrophils # (Auto) 19.81 K/uL (1.4-6.5) Lymphocytes # (Auto) 1.91 K/uL (1.2-3.4) Monocytes # (Auto) 3.20 K/uL (0.11-0.59) Eosinophils # (Auto) 0.00 K/uL (0-0.5) Basophils # (Auto) 0.02 K/uL (0-0.2) RDW Standard Deviation 50.0 fL (36.4-46.3) RDW Coefficient of Variation 15.1 % (11.5-14.5) Immature Granulocyte % (Auto) 0.8 % Immature Granulocyte # (Auto) 0.21 K/uL (0.00-0.02) Nucleated RBC Absolute Count (auto) 0.06 K/uL (0-0) Nucleated Red Blood Cells % 0.2 % Schistocytes 1+ Prothrombin Time 77.0 SECONDS (9.0-12.0) Prothromb Time International Ratio 6.7 (0.9-1.1) Activated Partial Thromboplast Time 52.4 SECONDS (21.0-31.0) Partial Thromboplastin Ratio 2.0 Anion Gap 13.0 mmol/L (3-11) Est Creatinine Clear Calc Drug Dose 10.3 ml/min Estimated GFR () 13.3 Estimated GFR (Non- 11.5 BUN/Creatinine Ratio 17.8 (10-20) Calcium Level 8.7 mg/dl (8.5-10.1) Total Bilirubin 0.4 mg/dl (0.2-1) Direct Bilirubin mg/dl (0-0.2) Aspartate Amino Transf (AST/SGOT) 42 U/L (15-37) Alanine Aminotransferase (ALT/SGPT) 31 U/L (12-78) Alkaline Phosphatase 42 U/L (45-117) Total Creatine Kinase 543 U/L (26-192) Creatine Kinase MB 7.4 ng/ml (0.5-3.6) Creatine Kinase MB Ratio 1.4 (0-3.0) Total Protein 6.8 gm/dl (6.4-8.2) Albumin 3.1 gm/dl (3.4-5.0) Chemistry Specimen Hemolysis Bedside Troponin I < 0.030 ng/ml (0-0.045) Laboratory results per my review. Medications Administered Medications (Trade) Dose Ordered Sig/Khris Route Start Time Stop Time Status Last Admin Dose Admin Sodium Chloride 250 ml @ 999 mls/hr Q16M STAT IV 03/12/17 20:42 03/12/17 20:57 DC 03/12/17 20:51 999 MLS/HR Sodium Chloride 1,000 ml @ 150 mls/hr Q6H40M STAT IV 03/12/17 20:42 03/12/17 22:43 DC 03/12/17 20:51 150 MLS/HR Phytonadione 5 mg/ Sodium Chloride 50.5 ml @ 101 mls/hr ONE ONCE IV 03/12/17 20:45 03/12/17 21:14 DC 03/12/17 21:21 101 MLS/HR ECG Indication: weakness Rate (beats per minute): 76 Rhythm: sinus rhythm Findings: 1st degree AV block, LBBB, nonspecific-ST abn (Lateral) ED Course 1904: Past medical records reviewed. The patient was evaluated in room A02. A complete history and physical examination was performed. 2041: Ordered Sodium Chloride 1000 ml @ 150 mls/hr IV, Sodium Chloride 250 ml @ 999 mls/hr IV 2044: Ordered Phytonadione 5 mg/Sodium Chloride 50.5 ml @ 101 mls/hr Protocol IV 2141: I discussed the patient's case with Dr. Horvath, [facility] Hospitalist. The patient will be evaluated for further management and care. 2142: Upon reevaluation, the patient is resting comfortably. I discussed laboratory and radiographic results with her. She verbalized agreement of the treatment plan. The patient will be evaluated for further management and care. She consented for the blood transfusion. Medical Decision Differential diagnosis: Etiologies such as metabolic, infection, hypo/hyperglycemia, electrolyte abnormalities, cardiac sources, intracerebral event, toxicologic, neurologic, as well as others were entertained. This patient was evaluated and appeared to be in no significant distress. Physical examination is consistent with acute anemia the patient is pale with a large hematoma at the right hip. Her INR is noted to be markedly elevated at 6.7. Patient was given 5 g of IV vitamin K. She was typed and crossed for 2 units. Patient was hydrated with normal saline solution. She is found to be in an acute on chronic renal failure from just 2 days ago. She was a marked leukocytosis of 25,000. Acute stress likely has something to do with this. Urinalysis is pending. Patient's case was discussed with the hospitalist service. IV fluids and PRBC transfusion will be initiated. She will be evaluated for further management. Head Trauma GCS Score: 15 Medication Reconcilliation Current Medication List: was personally reviewed by me Blood Pressure Screening Patient's blood pressure: Normal blood pressure Blood pressure disposition: Did not require urgent referral Consults Time Called: 2124 Consulting Physician: Dr. Horvath [facility] Hospitalist Returned Call: 2141 I discussed the patient's case with Dr. Horvath, [facility] Hospitalist. The patient will be evaluated for further management and care. Impression Primary Impression: Anemia Additional Impressions: Supratherapeutic INR Hip hematoma, right Acute renal failure Scribe Attestation The scribe's documentation has been prepared under my direction and personally reviewed by me in its entirety. I confirm that the note above accurately reflects all work, treatment, procedures, and medical decision making performed by me. Departure Information Dispostion Being Evaluated By Hospitalist Referrals Alex Rizvi Jr,D.O. (PCP) Patient Instructions My [facility] Problem Qualifiers
[2017-03-12] MEDS ORDERED: CALC-51 PEG (20:19)
[2017-03-12 20:20] LABS: HEMATOCRIT 19.9 % (37-47); MEAN CELL VOLUME 90.9 fL (80-100); MEAN CORPUSCULAR HEMOGLOBIN 29.7 pg (25-34); MEAN CORPUSCULAR HGB CONC 32.7 g/dl (32-36); MEAN PLATELET VOLUME 9.9 fL (7.4-10.4); PLATELET COUNT 288 K/uL (130-400); RED BLOOD COUNT 2.19 M/uL (4.2-5.4); WHITE BLOOD COUNT 25.15 K/uL (4.8-10.8)
[2017-03-12] MEDS ORDERED: LEVO75TA5 PO (20:21)
[2017-03-12 20:26] LABS: BASO % 0.1 %; BASO ABS # 0.02 K/uL (0-0.2); COMPLETE YES; IG% 0.8 %; LYMPH % 7.6 %; LYMPH ABS # 1.91 K/uL (1.2-3.4); MONO % 12.7 %; NEUT % 78.8 %; SCHISTOCYTES 1+
[2017-03-12 20:27] LABS: INR 6.7 (0.9-1.1)
--- NOTE | 2017-03-12 20:31 | DIAGNOSTIC IMAGING REPORT ---
CT SCAN OF THE BRAIN WITHOUT IV CONTRAST CLINICAL HISTORY: Fall. Weakness. COMPARISON STUDY: CT the brain dated 03/10/2017. TECHNIQUE: Unenhanced axial CT scan of the brain is performed from the vertex to the skull base. CT DOSE: 537.48 mGy.cm FINDINGS: Brain parenchyma: There are age-related involutional changes noting minimal subcortical and periventricular microangiopathic change. There is no hemorrhage, mass effect, or evidence of acute territorial ischemia by CT criteria. Dockery-white matter is preserved. No extra-axial fluid collection is seen. A calcification in the brain stem is unchanged. Ventricles, sulci, cisterns: Prominent secondary to involutional change. Intracranial vasculature: There is atherosclerotic calcification of the cavernous carotid arteries. Calvarium: The skeletal structures are osteopenic. No depressed calvarial fracture is seen. Sinuses and mastoids: The visualized paranasal sinuses are clear. The mastoid air cells are well pneumatized. Orbits: The bony orbits are grossly intact. IMPRESSION: There is no hemorrhage, mass effect, or evidence of acute territorial ischemia by CT criteria. Electronically signed by: Yuan Camargo M.D. 03/12/2017 8:30 PM Dictated Date/Time: 03/12/2017 8:28 PM
[2017-03-12 20:39] LABS: ALKALINE PHOSPHATASE 42 U/L (45-117); ALT/SGPT 31 U/L (12-78); AST/SGOT 42 U/L (15-37); BLOOD UREA NITROGEN 64 mg/dl (7-18); BUN/CREATININE RATIO 17.8 (10-20); CALCIUM 8.7 mg/dl (8.5-10.1); CARBON DIOXIDE 19 mmol/L (21-32); CHLORIDE 104 mmol/L (98-107); CKMB/CK RATIO 1.4 (0-3.0); CREATININE 3.58 mg/dl (0.60-1.20); GLUCOSE 110 mg/dl (70-99); POTASSIUM 5.2 mmol/L (3.5-5.1); SODIUM 136 mmol/L (136-145)
[2017-03-12] MEDS ORDERED: SODIUM CHLORIDE 0.9% 250ML 250 ML IV STA (20:42)
[2017-03-12] MEDS ORDERED: SODIUM CHLORIDE 0.9% 1000ML 1,000 ML IV STA (20:42)
[2017-03-12] MEDS ORDERED: PHYTONADIONE INJ 5 MG in SODIUM CHLORIDE 0.9% 50ML 50 ML IV ONE (20:45)
[2017-03-12] MEDS ORDERED: ONDANSETRON INJ 2 MG/ML 2 ML VIAL IV PRN (22:15)
[2017-03-12] MEDS ORDERED: FAMOTIDINE IV INJ 20 MG in DEXTROSE 5% 100ML 100 ML IV SCH (22:15)
[2017-03-12 22:17] VITALS: Ht 162.6 cm; Wt 54.5 kg
--- NOTE | 2017-03-12 22:57 | History and Physical ---
History & Physical Date & Time of Service: Mar 12, 2017 at 22:57 Chief Complaint: Supratherapeutic Inr, Symptomatic Anemia Primary Care Physician: Alex Rizvi Jr, D.O. History of Present Illness Source: patient, hospital records The patient is a 77-year-old female who presents to the emergency department with progressively worsening weakness over the past few days to the point that she was unable to stand today. She reports falling the day before arrival and the day of arrival to the emergency department. With the second fall she reports that she did hit her head. EMS reports that she had a bowel movement on the couch today because she could not get up to go the restroom. She denies any blood in stool or urine. She is presently taking Coumadin. Past Medical/Surgical History Medical Problems: (1) Atrial fibrillation Status: Chronic (2) Cholecystectomy Status: Resolved (3) Diverticulitis Status: Resolved (4) Hernia repair Status: Resolved (5) Hysterectomy Status: Resolved Family History Cancer Diabetes mellitus Gallbladder disease Hypertension Social History Smoking Status: Never Smoker Smokeless Tobacco Use: No Alcohol Use: none Drug Use: none Marital Status: Housing status: lives with family Occupational Status: retired Immunizations History of Influenza Vaccine: Yes Influenza Vaccine Date: Feb 22, 2009 History of Tetanus Vaccine?: UNK Tetanus Immunization Date: Aug 30, 2002 History of Pneumococcal: No Pneumococcal Date: Jul 16, 2012 History of Hepatitis B Vaccine: No Multi-Drug Resistant Organisms History of MDRO: No Allergies Coded Allergies: Quinolones (Unverified Adverse Reaction, Mild, HIVES, 03/10/17) Tendonitis Sulfamethoxazole w/Trimethoprim (Unverified Adverse Reaction, Mild, GI SYMPTOMS, 03/10/17) Home Medications Scheduled Amiodarone Hcl (Cordarone), 1 TAB PO DAILY Amlodipine (Norvasc), 5 MG PO DAILY Atorvastatin (Lipitor), 1 TAB PO DAILY Calcium Carbonate-Vitamin D (Calcium), 1 TAB PEG DAILY Calcium Polycarbophil (Fiber Laxative), 625 MG PO BID Cyanocobalamin (Vitamin B-12), 1,000 MCG PO DAILY Furosemide (Lasix), 20 MG PO DAILY Levothyroxine Sodium (Levothyroxine Sodium), 75 MCG PO DAILY Magnesium Oxide (Mag-Ox), 400 MG PO DAILY Metoprolol Tartrate (Lopressor) (Lopressor), 50 MG PO DAILY Multivitamin (Multivitamin), 1 TABLET PO DAILY Warfarin Sod (Jantoven), 2.5 MG PO ONLY ON WED Warfarin Sod (Jantoven), 5 MG PO DAILY EXCEPT ON WED Review of Systems The patient denies chest pain, palpitations, cough, lower extremity swelling, vision change, hearing change, sore throat, fevers, chills, sweats, weight change, fatigue, nausea, vomiting, diarrhea or constipation, abdominal pain, pelvic pain, blood in urine or stool, dysuria, urinary frequency or urgency, loss of consciousness, focal weakness, numbness or tingling in arms or legs, generalized arthralgias or myalgias, neck pain, or night sweats. The review of systems is otherwise negative other than for that already noted above, and at least 10 systems have been reviewed. Physical Exam Vital Signs Date Time Temp Pulse Resp B/P (MAP) Pulse Ox O2 Delivery O2 Flow Rate FiO2 03/12/17 22:39 36.9 82 19 101/46 100 03/12/17 22:17 Room Air 03/12/17 22:12 82 101/46 100 Room Air 03/12/17 20:48 81 03/12/17 20:44 81 19 101/46 99 Room Air 03/12/17 19:01 36.9 80 20 126/53 96 Room Air The patient is awake, looks pale and fatigued, alert and oriented 3, normocephalic and atraumatic, lying in bed and in no acute distress. HEENT--PERRL, EOMI, mucous membranes and oropharynx dry. Neck--supple, no JVD or bruits, thyroid normal, trachea midline, no adenopathy. Heart--normal S1 and S2, no extra beats, no murmurs, rubs or gallops. Lungs--clear bilaterally but decreased breath sounds throughout, no respiratory distress, no accessory muscle use. Abdomen--normal bowel sounds and soft, nontender and nondistended, no hernias or masses, no organomegaly. Extremities--no cyanosis, clubbing or edema. There are good distal pulses b/l. Dermatologic--looks pale, large ecchymotic area over right hip, healed laceration and bruise over right lower owens Neurologic--cranial nerves II through XII grossly intact. Rheumatologic--normal range of motion. Psychiatric--normal affect but looks fatigued Diagnostics Laboratory Results Results Past 24 Hours Test 03/12/17 19:55 03/12/17 19:59 03/12/17 22:03 Range/Units White Blood Count 25.15 4.8-10.8 K/uL Red Blood Count 2.19 4.2-5.4 M/uL Hemoglobin 6.5 12.0-16.0 g/dL Hematocrit 19.9 37-47 % Mean Corpuscular Volume 90.9 80-100 fL Mean Corpuscular Hemoglobin 29.7 25-34 pg Mean Corpuscular Hemoglobin Concent 32.7 32-36 g/dl Platelet Count 288 130-400 K/uL Mean Platelet Volume 9.9 7.4-10.4 fL Neutrophils (%) (Auto) 78.8 % Lymphocytes (%) (Auto) 7.6 % Monocytes (%) (Auto) 12.7 % Eosinophils (%) (Auto) 0.0 % Basophils (%) (Auto) 0.1 % Neutrophils # (Auto) 19.81 1.4-6.5 K/uL Lymphocytes # (Auto) 1.91 1.2-3.4 K/uL Monocytes # (Auto) 3.20 0.11-0.59 K/uL Eosinophils # (Auto) 0.00 0-0.5 K/uL Basophils # (Auto) 0.02 0-0.2 K/uL RDW Standard Deviation 50.0 36.4-46.3 fL RDW Coefficient of Variation 15.1 11.5-14.5 % Immature Granulocyte % (Auto) 0.8 % Immature Granulocyte # (Auto) 0.21 0.00-0.02 K/uL Nucleated RBC Absolute Count (auto) 0.06 0-0 K/uL Nucleated Red Blood Cells % 0.2 % Schistocytes 1+ Prothrombin Time 77.0 9.0-12.0 SECONDS Prothromb Time International Ratio 6.7 0.9-1.1 Activated Partial Thromboplast Time 52.4 21.0-31.0 SECONDS Partial Thromboplastin Ratio 2.0 Sodium Level 136 136-145 mmol/L Potassium Level 5.2 3.5-5.1 mmol/L Chloride Level 104 98-107 mmol/L Carbon Dioxide Level 19 21-32 mmol/L Anion Gap 13.0 3-11 mmol/L Blood Urea Nitrogen 64 7-18 mg/dl Creatinine 3.58 0.60-1.20 mg/dl Est Creatinine Clear Calc Drug Dose 10.3 ml/min Estimated GFR () 13.3 Estimated GFR (Non- 11.5 BUN/Creatinine Ratio 17.8 10-20 Random Glucose 110 70-99 mg/dl Calcium Level 8.7 8.5-10.1 mg/dl Total Bilirubin 0.4 0.2-1 mg/dl Direct Bilirubin 0-0.2 mg/dl Aspartate Amino Transf (AST/SGOT) 42 15-37 U/L Alanine Aminotransferase (ALT/SGPT) 31 12-78 U/L Alkaline Phosphatase 42 45-117 U/L Total Creatine Kinase 543 26-192 U/L Creatine Kinase MB 7.4 0.5-3.6 ng/ml Creatine Kinase MB Ratio 1.4 0-3.0 Total Protein 6.8 6.4-8.2 gm/dl Albumin 3.1 3.4-5.0 gm/dl Chemistry Specimen Hemolysis Bedside Troponin I < 0.030 0-0.045 ng/ml Diagnostic Radiology Patient Name: JEN GALLOWAY Unit Number: [id number] Dictated: 03/12/172027 Transcribed: 03/12/172027 EV Printed Date/Time: [~ rep prt dt]/[~ rep prt tm] [~ rep ct labl] - [~ rep ct ivnm] [facility] [place] [address] Dictated: 03/12/172027 Transcribed: 03/12/172027 EV Printed Date/Time: [~ rep prt dt]/[~ rep prt tm] [~ rep ct labl] - [~ rep ct ivnm] [~ rep ct add3]] CT SCAN OF THE BRAIN WITHOUT IV CONTRAST CLINICAL HISTORY: Fall. Weakness. COMPARISON STUDY: CT the brain dated 03/10/2017. TECHNIQUE: Unenhanced axial CT scan of the brain is performed from the vertex to the skull base. CT DOSE: 537.48 mGy.cm FINDINGS: Brain parenchyma: There are age-related involutional changes noting minimal subcortical and periventricular microangiopathic change. There is no hemorrhage, mass effect, or evidence of acute territorial ischemia by CT criteria. Dockery-white matter is preserved. No extra-axial fluid collection is seen. A calcification in the brain stem is unchanged. Ventricles, sulci, cisterns: Prominent secondary to involutional change. Intracranial vasculature: There is atherosclerotic calcification of the cavernous carotid arteries. Calvarium: The skeletal structures are osteopenic. No depressed calvarial fracture is seen. Sinuses and mastoids: The visualized paranasal sinuses are clear. The mastoid air cells are well pneumatized. Orbits: The bony orbits are grossly intact. IMPRESSION: There is no hemorrhage, mass effect, or evidence of acute territorial ischemia by CT criteria. Electronically signed by: Yuan Camargo M.D. 03/12/2017 8:30 PM Dictated Date/Time: 03/12/2017 8:28 PM The status of this report is Signed. Draft = Not yet reviewed or approved by Radiologist. Signed = Reviewed and approved by Radiologist. <AttendingPhy></AttendingPhy> <FamilyPhy>Alex Rizvi Jr,D.O.</FamilyPhy> < PrimaryPhy>Alex Rizvi Jr,D.O.</PrimaryPhy> <UnitNumber>[id number]</ UnitNumber> <VisitNumber>[id number]</VisitNumber> <PatientName>JEN GALLOWAY Cecilio< /PatientName> <DateOfBirth>1940</DateOfBirth> <Location>[facility]</Location> < ServiceDate>03/12/17</ServiceDate> <MNE>ESINDI</MNE> <OrderingPhy>Lindsay Carpenter M.D.</OrderingPhy> <OrderingPhyMNE>f rep ord dr ortiz</OrderingPhyMNE> < DictatingPhyMNE>f rep dict dr ortiz</DictatingPhyMNE> <CCListMNE>f rep ct angel</ CCListMNE> <AdmittingPhyMNE>f pt admit dr ortiz</AdmittingPhyMNE> <AttendingPhyMNE >f pt attend dr ortiz</AttendingPhyMNE> <ConsultingPhyMNE>f pt consult dr ortiz</ConsultingPhyMNE> <FamilyPhyMNE>f pt fam dr ortiz</FamilyPhyMNE> <OtherPhyMNE>f pt other dr ortiz</OtherPhyMNE> < PrimaryPhyMNE>f pt prim care dr ortiz</PrimaryPhyMNE> <ReferringPhyMNE>f pt referring dr ortiz</ReferringPhyMNE> EKG EKG shows normal sinus rhythm at 76 bpm, first-degree heart block, left bundle branch block, no acute ST-T changes. Impression Assessment and Plan Symptomatic anemia/supratherapeutic INR/paroxysmal atrial fibrillation/ hypertension-- Admit to the telemetry unit for close monitoring. Hemoglobin initially 6.5, but more likely closer to 5. INR was 6.7. Given vitamin K 10 mg IV in the ED, and will recheck INR in 6 hours. Transfused 2 units PRBCs tonight. H&H every 6 hours. No signs of GI blood loss. Suspect decline is due to hemolysis and likely small amount of blood and right hip ecchymotic area. We'll order CT of abdomen and pelvis to assess for possible blood loss. Continue amiodarone 200 mg by mouth daily Hold amlodipine, furosemide, metoprolol tartrate, warfarin and mag oxide. Acute kidney injury-- Creatinine 3.58 upon admission, with baseline 1.2-1.3. Transfuse as above. Place on normal saline at 80 ML's per hour. Repeat BMP and magnesium level every morning. Hold furosemide as noted above. Hyperlipidemia-- Continue Lipitor. Hypothyroidism-- Continue levothyroxine sodium 75 g by mouth daily. Vitamin B-12 deficiency-- Continue supplement 1000 g by mouth daily. Level of Care Telemetry Advanced Directives Existing Advance Directive: No Existing Living Will: Yes Existing Power of Production Finisher: Yes Resuscitation Status FULL RESUSCITATION VTE Prophylaxis VTE Risk Assessment Done? Y/N: Yes Risk Level: Moderate Given or contraindicated: SCD's
[2017-03-12] MEDS: FAMOTIDINE IV INJ 20 MG in SYRINGE 3 ML IV SCH (23:19)
[2017-03-12 23:30] VITALS: BP 102/50; PULSE 73; TEMP 36.6; O2SAT 99
[2017-03-12 23:33] LABS: HEMATOCRIT 17.2 % (37-47)
[2017-03-12] MEDS: ACETAMINOPHEN 325 MG TAB PO PRN (23:37)
[2017-03-12] MEDS: SODIUM CHLORIDE 0.9% 1000ML 1,000 ML IV SCH (23:38)
[2017-03-12 23:45] VITALS: BP 91/44; PULSE 75; TEMP 36.5; O2SAT 99
[2017-03-13] VITALS (18 sets, daily range): BP systolic 100–134; BP diastolic 45–63; PULSE 63–78; TEMP 36.4–37.3; O2SAT 94–100
[2017-03-13] MEDS ORDERED: NURSING VERBAL MED ORDER ONE ×2 (03:30)
[2017-03-13] MEDS ORDERED: MoRPHine SULFATE 2 MG/ML CARP IV PRN (03:45)
[2017-03-13] MEDS: ACETAMINOPHEN 325 MG TAB PO PRN ×2 (04:00→21:32)
[2017-03-13] MEDS: LEVOTHYROXINE 75 MCG TAB PO SCH (05:33)
[2017-03-13 05:51] LABS: HEMATOCRIT 27.8 % (37-47); MEAN CELL VOLUME 86.1 fL (80-100); MEAN CORPUSCULAR HEMOGLOBIN 28.8 pg (25-34); MEAN CORPUSCULAR HGB CONC 33.5 g/dl (32-36); MEAN PLATELET VOLUME 9.6 fL (7.4-10.4); PLATELET COUNT 170 K/uL (130-400); RED BLOOD COUNT 3.23 M/uL (4.2-5.4); WHITE BLOOD COUNT 18.15 K/uL (4.8-10.8)
[2017-03-13 05:54] LABS: BASO % 0.2 %; BASO ABS # 0.03 K/uL (0-0.2); COMPLETE YES; IG% 1.1 %; LYMPH % 11.7 %; LYMPH ABS # 2.12 K/uL (1.2-3.4)
[2017-03-13 05:59] LABS: INR 1.4 (0.9-1.1); PARTIAL THROMBOPLASTIN RATIO 1.3
[2017-03-13 06:01] LABS: BUN/CREATININE RATIO 21.9 (10-20); CALCIUM 7.9 mg/dl (8.5-10.1); CREATININE 2.93 mg/dl (0.60-1.20); MAGNESIUM 2.7 mg/dl (1.8-2.4); POTASSIUM 4.6 mmol/L (3.5-5.1)
--- NOTE | 2017-03-13 07:37 | DIAGNOSTIC IMAGING REPORT ---
CT SCAN OF THE ABDOMEN AND PELVIS WITHOUT CONTRAST CLINICAL HISTORY: Abdominal pain status post trauma COMPARISON STUDY: CT scan of pelvis dated 03/10/2017 , CT scan abdomen pelvis dated July 14, 2012 TECHNIQUE: CT scan of the abdomen and pelvis was performed from the lung bases to the proximal femurs. Images are reviewed in the axial, sagittal, and coronal planes. IV contrast was not administered for this examination. A dose lowering technique was utilized adhering to the principles of ALARA. CT DOSE: 326.45 mGy.cm FINDINGS: Lower chest: There is a pectus deformity. There are bibasal atelectatic changes. No pneumothorax is visualized. Liver: The liver is hyperdense. This is a nonspecific finding but raises the possibility of amiodarone therapy. There is a partially calcified 15 mm mass adjacent to the gallbladder fossa. Gallbladder: Surgically absent Spleen: Normal in size and attenuation. Pancreas: Unremarkable. Adrenal glands: Unremarkable. Kidneys: The unenhanced kidneys are normal in size without hydronephrosis. There is no contour deforming renal mass lesion. No renal calculi are identified. Bowel: There are no transition zones indicate bowel obstruction. There is colonic diverticulosis. There are no acute peridiverticular inflammatory changes. Peritoneum: There is no intraperitoneal free air or abdominal ascites. Vasculature: The abdominal aorta is normal in course and caliber. Adenopathy: None. Pelvic viscera: The uterus appears surgically absent Skeletal structures: There is an 11 cm soft tissue mass lateral to the right hip and proximal femur. This likely represents a large hematoma. IMPRESSION: 1. Examination limited due to the lack of intravenous and orally administered contrast 2. Pectus excavatum deformity 3. No evidence of acute intra-abdominal or pelvic injury given the limitations of a noncontrast study 4. Increase in hepatic attenuation. This is a nonspecific finding but can be seen in amiodarone therapy 5. Partially calcified 15 mm hepatic mass adjacent to gallbladder fossa. This remains unchanged from July 2012 6. 11 cm soft tissue mass located lateral to the right hip and proximal femur. This likely represents a hematoma. Electronically signed by: Stanford Tyson M.D. 03/13/2017 7:35 AM Dictated Date/Time: 03/13/2017 7:30 AM
[2017-03-13] MEDS: AMIODARONE 200 MG TAB PO SCH (08:06)
[2017-03-13] MEDS: CYANOCOBALAMIN 500 MCG TAB (VIT B-12) PO SCH (08:06)
[2017-03-13] MEDS: ATORVASTATIN 20 MG TAB PO SCH (08:06)
[2017-03-13] MEDS: FAMOTIDINE IV INJ 20 MG in SYRINGE 3 ML IV SCH ×2 (08:09→21:32)
[2017-03-13 10:27] LABS: HEMATOCRIT 26.2 % (37-47)
[2017-03-13] MEDS: SODIUM CHLORIDE 0.9% 1000ML 1,000 ML IV SCH ×2 (11:30→18:52)
[2017-03-13 15:52] LABS: HEMATOCRIT 25.9 % (37-47)
--- NOTE | 2017-03-13 17:08 | Family Medicine Progress Note ---
Progress Note Date of Service Mar 13, 2017. Subjective Pt evaluation today including: conversation w/ patient, physical exam, chart review, lab review, review of studies Pain: Pain over right hip where trauma occured during fall Voiding: no voiding problems, no incontinence Patient states that she is feeling less lightheaded and dizzy today after receiving her transfusions last night. She complains of continued right hip pain is she tries to move her hip but otherwise is comfortable at rest. She is alert and oriented and in no acute distress. She has no other acute complaints this morning. Constitutional: No fever, No chills, No sweats, No fatigue Respiratory: No cough, No wheezing, No shortness of breath Cardiovascular: No chest pain, No edema, No palpitations Abdomen: No pain, No nausea, No vomiting Female : No dysuria Medications Current Inpatient Medications Medications (Trade) Dose Ordered Sig/Khris Route Start Time Stop Time Status Last Admin Dose Admin Acetaminophen (Tylenol Tab) 650 mg Q4H PRN PO 03/12/17 22:15 04/11/17 22:14 03/13/17 04:00 650 MG Amiodarone HCl (Cordarone Tab) 200 mg DAILY PO 03/13/17 09:00 04/12/17 08:59 03/13/17 08:06 200 MG Atorvastatin Calcium (Lipitor Tab) 20 mg DAILY PO 03/13/17 09:00 04/12/17 08:59 03/13/17 08:06 20 MG Cyanocobalamin (Vitamin B-12 Tab) 1,000 mcg DAILY PO 03/13/17 09:00 04/12/17 08:59 03/13/17 08:06 1,000 MCG Levothyroxine Sodium (Synthroid Tab) 75 mcg DAILYBB PO 03/13/17 06:00 04/12/17 05:59 03/13/17 05:33 75 MCG Ondansetron HCl (Zofran Inj) 4 mg Q6H PRN IV 03/12/17 22:15 04/11/17 22:14 Acetaminophen 100 ml @ 400 mls/hr Q8H PRN IV 03/12/17 22:15 04/11/17 22:14 Sodium Chloride 1,000 ml @ 80 mls/hr [id number] IV 03/12/17 23:00 04/11/17 22:59 03/12/17 23:38 80 MLS/HR Famotidine 20 mg/ Syringe 5 ml @ 2.5 mls/min Q12 IV 03/12/17 23:00 04/11/17 22:59 03/13/17 08:09 2.5 MLS/MIN Morphine Sulfate (MoRPHine SULFATE INJ) 2 mg Q2H PRN IV 03/13/17 03:45 03/27/17 03:44 Objective Vital Signs Date Time Temp Pulse Resp B/P (MAP) Pulse Ox O2 Delivery O2 Flow Rate FiO2 03/13/17 16:00 Room Air 03/13/17 15:48 36.8 72 20 113/61 (78) 97 Room Air 03/13/17 12:00 Room Air 03/13/17 11:49 36.6 74 18 120/61 (80) 96 Room Air 03/13/17 10:13 Room Air 03/13/17 10:13 37.3 18 116/55 (75) 99 Room Air 03/13/17 10:02 37.3 71 20 116/57 (76) 99 Room Air 03/13/17 08:00 36.9 74 16 124/56 (78) 98 Room Air 03/13/17 08:00 Room Air 03/13/17 04:23 36.6 63 16 122/62 99 03/13/17 04:00 94 Room Air 03/13/17 04:00 36.5 67 18 122/62 94 03/13/17 03:03 36.5 71 15 134/60 100 03/13/17 02:00 36.6 67 18 110/48 100 2.0 03/13/17 01:27 36.6 71 19 100 03/13/17 01:16 36.7 63 21 115/49 100 03/13/17 01:00 36.7 70 18 113/45 98 2.0 03/13/17 00:30 70 19 117/48 100 2.0 03/13/17 00:22 100 Nasal Cannula 2.0 03/13/17 00:00 36.5 18 103/51 (68) 100 Room Air 2.0 03/13/17 00:00 72 18 103/51 100 2.0 03/12/17 23:45 36.5 75 21 91/44 99 2.0 03/12/17 23:30 36.6 73 16 102/50 99 2.0 03/12/17 22:39 36.9 82 19 101/46 100 03/12/17 22:17 Room Air 03/12/17 22:12 82 101/46 100 Room Air 03/12/17 20:48 81 03/12/17 20:44 81 19 101/46 99 Room Air 03/12/17 19:01 36.9 80 20 126/53 96 Room Air Physical Exam General Appearance: WD/WN, no apparent distress Eyes: normal inspection, sclerae normal Neck: supple, trachea midline Respiratory/Chest: chest non-tender, lungs clear, normal breath sounds Cardiovascular: regular rate, rhythm, no edema, no murmur Abdomen: normal bowel sounds, non tender, soft Extremities: + pertinent finding (Tenderness and significant swelling over the right hip. Blistering occuring over the ecchymosis that appears over the hip. Significant tenderness with palpation of the effected region.) Neurologic/Psychiatric: alert, normal mood/affect, oriented x 3 Laboratory Results Results Past 24 Hours Test 03/12/17 19:55 03/12/17 19:59 03/12/17 23:09 03/13/17 05:21 Range/Units White Blood Count 25.15 18.15 4.8-10.8 K/uL Red Blood Count 2.19 3.23 4.2-5.4 M/uL Hemoglobin 6.5 5.7 9.3 12.0-16.0 g/dL Hematocrit 19.9 17.2 27.8 37-47 % Mean Corpuscular Volume 90.9 86.1 80-100 fL Mean Corpuscular Hemoglobin 29.7 28.8 25-34 pg Mean Corpuscular Hemoglobin Concent 32.7 33.5 32-36 g/dl Platelet Count 288 170 130-400 K/uL Mean Platelet Volume 9.9 9.6 7.4-10.4 fL Neutrophils (%) (Auto) 78.8 69.0 % Lymphocytes (%) (Auto) 7.6 11.7 % Monocytes (%) (Auto) 12.7 18.0 % Eosinophils (%) (Auto) 0.0 0.0 % Basophils (%) (Auto) 0.1 0.2 % Neutrophils # (Auto) 19.81 12.53 1.4-6.5 K/uL Lymphocytes # (Auto) 1.91 2.12 1.2-3.4 K/uL Monocytes # (Auto) 3.20 3.27 0.11-0.59 K/uL Eosinophils # (Auto) 0.00 0.00 0-0.5 K/uL Basophils # (Auto) 0.02 0.03 0-0.2 K/uL RDW Standard Deviation 50.0 52.3 36.4-46.3 fL RDW Coefficient of Variation 15.1 16.6 11.5-14.5 % Immature Granulocyte % (Auto) 0.8 1.1 % Immature Granulocyte # (Auto) 0.21 0.20 0.00-0.02 K/uL Nucleated RBC Absolute Count (auto) 0.06 0.25 0-0 K/uL Nucleated Red Blood Cells % 0.2 1.4 % Schistocytes 1+ Prothrombin Time 77.0 15.0 9.0-12.0 SECONDS Prothromb Time International Ratio 6.7 1.4 0.9-1.1 Activated Partial Thromboplast Time 52.4 34.1 21.0-31.0 SECONDS Partial Thromboplastin Ratio 2.0 1.3 Sodium Level 136 137 136-145 mmol/L Potassium Level 5.2 4.6 3.5-5.1 mmol/L Chloride Level 104 107 98-107 mmol/L Carbon Dioxide Level 19 21 21-32 mmol/L Anion Gap 13.0 9.0 3-11 mmol/L Blood Urea Nitrogen 64 64 7-18 mg/dl Creatinine 3.58 2.93 0.60-1.20 mg/dl Est Creatinine Clear Calc Drug Dose 10.3 12.6 ml/min Estimated GFR () 13.3 16.9 Estimated GFR (Non- 11.5 14.6 BUN/Creatinine Ratio 17.8 21.9 10-20 Random Glucose 110 106 70-99 mg/dl Calcium Level 8.7 7.9 8.5-10.1 mg/dl Total Bilirubin 0.4 0.2-1 mg/dl Direct Bilirubin 0-0.2 mg/dl Aspartate Amino Transf (AST/SGOT) 42 15-37 U/L Alanine Aminotransferase (ALT/SGPT) 31 12-78 U/L Alkaline Phosphatase 42 45-117 U/L Total Creatine Kinase 543 26-192 U/L Creatine Kinase MB 7.4 0.5-3.6 ng/ml Creatine Kinase MB Ratio 1.4 0-3.0 Total Protein 6.8 6.4-8.2 gm/dl Albumin 3.1 3.4-5.0 gm/dl Chemistry Specimen Hemolysis Bedside Troponin I < 0.030 0-0.045 ng/ml Magnesium Level 2.7 1.8-2.4 mg/dl Test 03/13/17 10:12 03/13/17 15:45 Range/Units Hemoglobin 8.9 8.7 12.0-16.0 g/dL Hematocrit 26.2 25.9 37-47 % Microbiology Results 03/13/17 MRSA DNA Surveillance Screen - Final, Complete Specimen Negative for MRSA by DNA Probe Assessment and Plan Patient is a 77 year old female that presents with progressive weakness since a fall on 03/10 on the right hip with supratherapeutic anticoagulation and anemia 1) Symptomatic Anemia - Hgb 9.3 s/p transfusion of 3 units of PRBC - H/H q6h - Transfusion at hgb < 7 - Continue to monitor right hip ecchymosis for evolution and continued bleeding - IV NS 80mls/hr 2) Supratherapeutic INR - INR of 1.4 s/p IV Vitamin K 10mg --> INR of 6.7 of admission - Repeat daily INR - Hold Coumadin 3) Atrial Fibrillation - Currently NSR with rate in the 60s - Continue home Amiodarone - Holding home Metoprolol d/t bradycardia 4) Acute Kidney Injury - Improving --> Creatinine of 2.93 this morning - Creatinine of 3.58 on admission - Baseline Cr of 1.2-1.3 5) Right Hip Ecchymosis - Right hip trauma on Wednesday s/p fall - Imaging including CT Hip r/o fracture - Wound care consultation - Consider ortho consultation - PT/OT Consult 6) Hyperthyroidism - Synthroid 75 mcg 7) DVT - Holding Coumadin - SCDs 8) Code Status - Full Resuscitation 9) Disposition - Lives at home currently - Consider SNF for rehab based on PT notes Resident Physician Supervision Note: I was present with Dr. Gong during the history and exam. I discussed the case with the resident and agree with the findings and plan as documented in the note. Any exceptions or clarifications are listed here: Documented By: Fernando Garcia
[2017-03-13 22:28] LABS: HEMATOCRIT 24.6 % (37-47)
[2017-03-14] VITALS (10 sets, daily range): BP systolic 108–121; BP diastolic 52–66; PULSE 66–88; TEMP 36.7–37.3; O2SAT 96–98
[2017-03-14 04:37] LABS: BASO % 0.1 %; BASO ABS # 0.01 K/uL (0-0.2); EOS % 0.3 %; HEMATOCRIT 25.4 % (37-47); IG% 1.1 %; LYMPH % 14.6 %; LYMPH ABS # 1.61 K/uL (1.2-3.4); MEAN CELL VOLUME 87.9 fL (80-100); MEAN CORPUSCULAR HEMOGLOBIN 29.1 pg (25-34); MEAN CORPUSCULAR HGB CONC 33.1 g/dl (32-36); MONO % 18.1 %; NEUT % 65.8 %; PLATELET COUNT 159 K/uL (130-400); RED BLOOD COUNT 2.89 M/uL (4.2-5.4); WHITE BLOOD COUNT 11.04 K/uL (4.8-10.8)
[2017-03-14 04:46] LABS: PARTIAL THROMBOPLASTIN RATIO 1.2
[2017-03-14 04:56] LABS: BUN/CREATININE RATIO 25.8 (10-20); CALCIUM 7.9 mg/dl (8.5-10.1); CREATININE 1.17 mg/dl (0.60-1.20); MAGNESIUM 2.5 mg/dl (1.8-2.4)
[2017-03-14 05:17] LABS: COMPLETE YES; POLYCHROMASIA 1+
[2017-03-14] MEDS: ACETAMINOPHEN 325 MG TAB PO PRN ×2 (06:01→22:48)
[2017-03-14] MEDS: LEVOTHYROXINE 75 MCG TAB PO SCH (06:01)
[2017-03-14] MEDS: SODIUM CHLORIDE 0.9% 1000ML 1,000 ML IV SCH ×2 (06:02→18:35)
[2017-03-14 07:29] LABS: HEMATOCRIT 24.1 % (37-47)
[2017-03-14] MEDS: AMIODARONE 200 MG TAB PO SCH (09:41)
[2017-03-14] MEDS: CYANOCOBALAMIN 500 MCG TAB (VIT B-12) PO SCH (09:41)
[2017-03-14] MEDS: ATORVASTATIN 20 MG TAB PO SCH (09:41)
[2017-03-14] MEDS: FAMOTIDINE IV INJ 20 MG in SYRINGE 3 ML IV SCH ×2 (09:43→21:27)
--- NOTE | 2017-03-14 12:03 | Family Medicine Progress Note ---
Progress Note Date of Service Mar 14, 2017. Subjective Pt evaluation today including: conversation w/ patient, physical exam, chart review, lab review, review of studies Pain: Patient states her right hip pain is unchanged from yesterday Voiding: no voiding problems, no incontinence Patient is resting comfortably in bed this morning with no acute complaints overnight. Patient is still having right hip pain with movement of the right leg. She states that she has been feeling less weak since receiving her transfusions. Constitutional: No fever, No chills, No fatigue Respiratory: No cough, No sputum, No wheezing, No hemoptysis Cardiovascular: No chest pain, No palpitations Abdomen: No pain, No nausea, No vomiting Musculoskeletal: + problem reported (Right sided hip pain) Medications Current Inpatient Medications Medications (Trade) Dose Ordered Sig/Khris Route Start Time Stop Time Status Last Admin Dose Admin Acetaminophen (Tylenol Tab) 650 mg Q4H PRN PO 03/12/17 22:15 04/11/17 22:14 03/14/17 06:01 650 MG Amiodarone HCl (Cordarone Tab) 200 mg DAILY PO 03/13/17 09:00 04/12/17 08:59 03/14/17 09:41 200 MG Atorvastatin Calcium (Lipitor Tab) 20 mg DAILY PO 03/13/17 09:00 04/12/17 08:59 03/14/17 09:41 20 MG Cyanocobalamin (Vitamin B-12 Tab) 1,000 mcg DAILY PO 03/13/17 09:00 04/12/17 08:59 03/14/17 09:41 1,000 MCG Levothyroxine Sodium (Synthroid Tab) 75 mcg DAILYBB PO 03/13/17 06:00 04/12/17 05:59 03/14/17 06:01 75 MCG Acetaminophen 100 ml @ 400 mls/hr Q8H PRN IV 03/12/17 22:15 04/11/17 22:14 Sodium Chloride 1,000 ml @ 80 mls/hr [id number] IV 03/12/17 23:00 04/11/17 22:59 03/14/17 06:02 80 MLS/HR Famotidine 20 mg/ Syringe 5 ml @ 2.5 mls/min Q12 IV 03/12/17 23:00 04/11/17 22:59 03/14/17 09:43 2.5 MLS/MIN Morphine Sulfate (MoRPHine SULFATE INJ) 2 mg Q2H PRN IV 03/13/17 03:45 03/27/17 03:44 Objective Vital Signs Date Time Temp Pulse Resp B/P (MAP) Pulse Ox O2 Delivery O2 Flow Rate FiO2 03/14/17 11:27 36.7 88 18 109/54 (72) 96 Room Air 03/14/17 07:26 36.8 66 18 110/64 (79) 97 03/14/17 05:30 36.8 70 17 114/66 (82) 98 Room Air 03/14/17 04:00 97 Room Air 03/14/17 00:00 97 Room Air 03/13/17 23:56 36.4 75 16 111/63 (79) 94 Room Air 03/13/17 20:00 97 Room Air 03/13/17 19:45 37.1 78 20 100/57 (71) 97 Room Air 03/13/17 16:00 Room Air 03/13/17 15:48 36.8 72 20 113/61 (78) 97 Room Air 03/13/17 12:00 Room Air 03/13/17 11:49 36.6 74 18 120/61 (80) 96 Room Air Physical Exam General Appearance: WD/WN, no apparent distress Eyes: normal inspection, sclerae normal Neck: supple, trachea midline Respiratory/Chest: chest non-tender, lungs clear, normal breath sounds Cardiovascular: regular rate, rhythm, no edema, no gallop Abdomen: normal bowel sounds, non tender, soft Extremities: + pertinent finding (Right sided hip hematoma secondary to trauam from fall. Associated blistering over the skin at the area of the hematoma. Tenderness to palpation over the injured area.) Neurologic/Psychiatric: alert, normal mood/affect, oriented x 3 Laboratory Results Results Past 24 Hours Test 03/13/17 15:45 03/13/17 22:08 03/14/17 04:10 03/14/17 06:41 Range/Units Hemoglobin 8.7 8.1 8.4 7.8 12.0-16.0 g/dL Hematocrit 25.9 24.6 25.4 24.1 37-47 % White Blood Count 11.04 4.8-10.8 K/uL Red Blood Count 2.89 4.2-5.4 M/uL Mean Corpuscular Volume 87.9 80-100 fL Mean Corpuscular Hemoglobin 29.1 25-34 pg Mean Corpuscular Hemoglobin Concent 33.1 32-36 g/dl Platelet Count 159 130-400 K/uL Mean Platelet Volume 10.0 7.4-10.4 fL Neutrophils (%) (Auto) 65.8 % Lymphocytes (%) (Auto) 14.6 % Monocytes (%) (Auto) 18.1 % Eosinophils (%) (Auto) 0.3 % Basophils (%) (Auto) 0.1 % Neutrophils # (Auto) 7.27 1.4-6.5 K/uL Lymphocytes # (Auto) 1.61 1.2-3.4 K/uL Monocytes # (Auto) 2.00 0.11-0.59 K/uL Eosinophils # (Auto) 0.03 0-0.5 K/uL Basophils # (Auto) 0.01 0-0.2 K/uL RDW Standard Deviation 55.8 36.4-46.3 fL RDW Coefficient of Variation 17.5 11.5-14.5 % Immature Granulocyte % (Auto) 1.1 % Immature Granulocyte # (Auto) 0.12 0.00-0.02 K/uL Nucleated RBC Absolute Count (auto) 0.08 0-0 K/uL Nucleated Red Blood Cells % 0.7 % Polychromasia 1+ Prothrombin Time 11.0 9.0-12.0 SECONDS Prothromb Time International Ratio 1.0 0.9-1.1 Activated Partial Thromboplast Time 31.7 21.0-31.0 SECONDS Partial Thromboplastin Ratio 1.2 Sodium Level 142 136-145 mmol/L Potassium Level 4.0 3.5-5.1 mmol/L Chloride Level 114 98-107 mmol/L Carbon Dioxide Level 23 21-32 mmol/L Anion Gap 5.0 3-11 mmol/L Blood Urea Nitrogen 30 7-18 mg/dl Creatinine 1.17 0.60-1.20 mg/dl Est Creatinine Clear Calc Drug Dose 31.6 ml/min Estimated GFR () 51.3 Estimated GFR (Non- 44.3 BUN/Creatinine Ratio 25.8 10-20 Random Glucose 93 70-99 mg/dl Calcium Level 7.9 8.5-10.1 mg/dl Magnesium Level 2.5 1.8-2.4 mg/dl Assessment and Plan Patient is a 77 year old female that presents with progressive weakness since a fall on 03/10 on the right hip with supratherapeutic anticoagulation and anemia. Patient states that her energy level has improved since her transfusions, but her hemoglobin has continued to fall since. We will repeat an H/H this afternoon , and once her hemoglobin falls into the low 7 range, we will transfuse 2 units of PRBC. She will be having PT hopefully today, and the plan will be for her to be discharged to [facility] for rehab once stable. 1) Symptomatic Anemia - Hemoglobin of 7.8 this morning - Initially presented with Hgb of 6.5 on 03/12--> Increased to 9.4 S/p transfusion of 3 units of PRBC on 03/13 - H/H q6h --> Will review afternoon hemoglobin and determine whether to repeat transfusion based on result - Continue to monitor right hip ecchymosis for evolution and continued bleeding - IV NS 80mls/hr 2) Supratherapeutic INR - INR of 1.0 today - IV Vitamin K 10mg on admission --> INR of 6.7 of admission - Repeat daily INR - Hold Coumadin 3) Atrial Fibrillation - Currently NSR with rate in the 60s - Continue home Amiodarone - Holding home Metoprolol d/t bradycardia 4) Acute Kidney Injury (Cr 3.58 on admission) - Improved with IV fluids - Creatinine of 1.17 this morning - Baseline Cr of 1.2-1.3 5) Right Hip Ecchymosis - Right hip trauma on Wednesday s/p fall - Imaging including CT Hip r/o fracture --> 11cm mass (hematoma) over the right hip - Wound care consultation - PT/OT Consult 6) Hyperthyroidism - Synthroid 75 mcg 7) DVT - Holding Coumadin - SCDs 8) Code Status - Full Resuscitation 9) Disposition - Lives at home currently - Has met with [facility] and currently making referral for placement Resident Physician Supervision Note: I interviewed and examined the patient. Discussed with Dr. Gong and agree with findings and plan as documented in the note. Subjectively, she looks much better, as she is OOB to chair. She is alert and oriented and reports improved pain control. Monitor HgB later today. She is fully reversed in terms of her INR; decision when to re-start coumadin - not until HgB stabilizes and improves. At the moment, she remains in sinus (amiodarone). Documented By: Fernando Garcia
[2017-03-14 15:53] LABS: HEMATOCRIT 26.6 % (37-47)
[2017-03-15] VITALS (7 sets, daily range): BP systolic 94–133; BP diastolic 55–70; PULSE 79–88; TEMP 36.6–36.8; O2SAT 95–99
[2017-03-15] MEDS: TRAMADOL HCL 50 MG TAB PO PRN (02:13)
[2017-03-15] MEDS: LEVOTHYROXINE 75 MCG TAB PO SCH (05:47)
[2017-03-15 06:11] LABS: BASO % 0.2 %; BASO ABS # 0.02 K/uL (0-0.2); EOS % 2.4 %; HEMATOCRIT 23.3 % (37-47); LYMPH % 16.3 %; LYMPH ABS # 1.87 K/uL (1.2-3.4); MEAN CELL VOLUME 90.3 fL (80-100); MEAN CORPUSCULAR HEMOGLOBIN 29.1 pg (25-34); MEAN CORPUSCULAR HGB CONC 32.2 g/dl (32-36); MEAN PLATELET VOLUME 9.2 fL (7.4-10.4); MONO % 15.7 %; NEUT % 64.4 %; PLATELET COUNT 173 K/uL (130-400); RED BLOOD COUNT 2.58 M/uL (4.2-5.4); WHITE BLOOD COUNT 11.45 K/uL (4.8-10.8)
[2017-03-15 06:22] LABS: INR 1.2 (0.9-1.1); PARTIAL THROMBOPLASTIN RATIO 1.3; PROTHROMBIN TIME (PATIENT) 12.7 SECONDS (9.0-12.0)
[2017-03-15 06:42] LABS: BUN/CREATININE RATIO 20.4 (10-20); CALCIUM 7.6 mg/dl (8.5-10.1); CREATININE 0.72 mg/dl (0.60-1.20); MAGNESIUM 2.2 mg/dl (1.8-2.4); POTASSIUM 4.1 mmol/L (3.5-5.1)
[2017-03-15 06:52] LABS: COMPLETE YES; POLYCHROMASIA 1+
[2017-03-15] MEDS: SODIUM CHLORIDE 0.9% 1000ML 1,000 ML IV SCH (07:12)
[2017-03-15] MEDS: ACETAMINOPHEN 325 MG TAB PO PRN (07:50)
[2017-03-15] MEDS: ATORVASTATIN 20 MG TAB PO SCH (07:51)
[2017-03-15] MEDS: AMIODARONE 200 MG TAB PO SCH (07:51)
[2017-03-15] MEDS: CYANOCOBALAMIN 500 MCG TAB (VIT B-12) PO SCH (07:51)
--- NOTE | 2017-03-15 07:59 | Family Medicine Progress Note ---
Progress Note Date of Service Mar 15, 2017. 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 w/ technical consultant, review of inpatient medication list Pain: mild-moderate PO Intake: good Voiding: lynch catheter in place Patient still having mild pain with exertion at the hip She says that she is afraid to walk as she is scared to will fall and hurt herself Otherwise she says she feels fine and would like to go to rehab Constitutional: No fever, No chills, No sweats Respiratory: No cough, No sputum, No wheezing, No shortness of breath Cardiovascular: No chest pain, No orthopnea, No edema, No palpitations Abdomen: No pain, No nausea, No vomiting, No diarrhea, No constipation Musculoskeletal: + joint pain, + muscle pain, No calf pain Heme: + abnormal bleeding/bruising Skin: No rash, No itch Medications Current Inpatient Medications Medications (Trade) Dose Ordered Sig/Khris Route Start Time Stop Time Status Last Admin Dose Admin Acetaminophen (Tylenol Tab) 650 mg Q4H PRN PO 03/12/17 22:15 04/11/17 22:14 03/15/17 07:50 650 MG Amiodarone HCl (Cordarone Tab) 200 mg DAILY PO 03/13/17 09:00 04/12/17 08:59 03/15/17 07:51 200 MG Atorvastatin Calcium (Lipitor Tab) 20 mg DAILY PO 03/13/17 09:00 04/12/17 08:59 03/15/17 07:51 20 MG Cyanocobalamin (Vitamin B-12 Tab) 1,000 mcg DAILY PO 03/13/17 09:00 04/12/17 08:59 03/15/17 07:51 1,000 MCG Levothyroxine Sodium (Synthroid Tab) 75 mcg DAILYBB PO 03/13/17 06:00 04/12/17 05:59 03/15/17 05:47 75 MCG Acetaminophen 100 ml @ 400 mls/hr Q8H PRN IV 03/12/17 22:15 04/11/17 22:14 Tramadol HCl (Ultram Tab) 50 mg Q4H PRN PO 03/15/17 02:00 04/14/17 01:59 03/15/17 02:13 50 MG Heparin Sodium (Porcine) 21188 unit/Dextrose 500 ml @ 13 mls/hr Q24H PRN IV 03/15/17 14:00 04/14/17 13:59 Future Hold 03/15/17 14:19 13 MLS/HR Warfarin Sodium (Coumadin Tab) 3 mg DAILY@16 PO 03/16/17 16:00 04/15/17 15:59 Metoprolol Tartrate (Lopressor Tab) 50 mg DAILY PO 03/16/17 09:00 04/15/17 08:59 Objective Vital Signs Date Time Temp Pulse Resp B/P (MAP) Pulse Ox O2 Delivery O2 Flow Rate FiO2 03/15/17 16:00 Room Air 03/15/17 14:55 36.6 79 18 112/66 (81) 95 Room Air 03/15/17 12:00 Room Air 03/15/17 11:45 36.6 88 18 94/55 (68) 98 Room Air 03/15/17 08:00 Room Air 03/15/17 07:22 36.8 80 18 108/65 (79) 97 Room Air 03/15/17 05:18 36.6 83 18 111/65 (80) 96 Room Air 03/15/17 04:00 97 Room Air 03/15/17 00:00 97 Room Air 03/14/17 22:58 37.3 86 18 119/52 (74) 96 Room Air 03/14/17 20:00 98 Room Air 03/14/17 19:47 37.1 81 20 121/57 (78) 98 Room Air Physical Exam General Appearance: WD/WN, no apparent distress, + thin, + pertinent finding ( very thin hair and patient appears frail) Neck: supple, no JVD, no carotid bruits, trachea midline Respiratory/Chest: lungs clear, no respiratory distress, no accessory muscle use Cardiovascular: regular rate, rhythm, no edema, no murmur Abdomen: normal bowel sounds, non tender, soft Neurologic/Psychiatric: alert, normal mood/affect, oriented x 3 Skin: + pertinent finding (large bruise overlying right hip which extends up to lumbar spine and down to mid thigh, small bullae formationa and skin breakdown over bruise) Laboratory Results Results Past 24 Hours Test 03/15/17 05:42 Range/Units White Blood Count 11.45 4.8-10.8 K/uL Red Blood Count 2.58 4.2-5.4 M/uL Hemoglobin 7.5 12.0-16.0 g/dL Hematocrit 23.3 37-47 % Mean Corpuscular Volume 90.3 80-100 fL Mean Corpuscular Hemoglobin 29.1 25-34 pg Mean Corpuscular Hemoglobin Concent 32.2 32-36 g/dl Platelet Count 173 130-400 K/uL Mean Platelet Volume 9.2 7.4-10.4 fL Neutrophils (%) (Auto) 64.4 % Lymphocytes (%) (Auto) 16.3 % Monocytes (%) (Auto) 15.7 % Eosinophils (%) (Auto) 2.4 % Basophils (%) (Auto) 0.2 % Neutrophils # (Auto) 7.37 1.4-6.5 K/uL Lymphocytes # (Auto) 1.87 1.2-3.4 K/uL Monocytes # (Auto) 1.80 0.11-0.59 K/uL Eosinophils # (Auto) 0.28 0-0.5 K/uL Basophils # (Auto) 0.02 0-0.2 K/uL RDW Standard Deviation 57.6 36.4-46.3 fL RDW Coefficient of Variation 17.7 11.5-14.5 % Immature Granulocyte % (Auto) 1.0 % Immature Granulocyte # (Auto) 0.11 0.00-0.02 K/uL Polychromasia 1+ Prothrombin Time 12.7 9.0-12.0 SECONDS Prothromb Time International Ratio 1.2 0.9-1.1 Activated Partial Thromboplast Time 34.5 21.0-31.0 SECONDS Partial Thromboplastin Ratio 1.3 Sodium Level 143 136-145 mmol/L Potassium Level 4.1 3.5-5.1 mmol/L Chloride Level 115 98-107 mmol/L Carbon Dioxide Level 22 21-32 mmol/L Anion Gap 6.0 3-11 mmol/L Blood Urea Nitrogen 15 7-18 mg/dl Creatinine 0.72 0.60-1.20 mg/dl Est Creatinine Clear Calc Drug Dose 53.6 ml/min Estimated GFR () 92.3 Estimated GFR (Non- 79.7 BUN/Creatinine Ratio 20.4 10-20 Random Glucose 92 70-99 mg/dl Calcium Level 7.6 8.5-10.1 mg/dl Magnesium Level 2.2 1.8-2.4 mg/dl Assessment and Plan 77 year old female who presented to the emergency room with complaints of worsening weakness to her legs. Found to be quite anemic with Hgb 5.7 and Hct 17.2 with INR of 6.7. Received 3 units of PRBC and found to have large hematoma over right hip. Right sided hip hematoma is getting larger and is having some mild skin breakdown and bullae formation. Wound care nurse suggest to consult surgery or Dr. Delarosa as hematoma unlikely to reabsorb on its own. Anemia hgb 7.5 this morning and stable received 3 units of PRBC FOBT ordered for completeness Supratherapeutic INR INR 1.2 today hold coumadin and heparin drip follows with Dr. Canela for afib Afib currently NSR continue amiodarone restart metoprolol and monitor HR hold coumadin R hip ecchymosis 11 cm hematoma lateral to right hip and proximal femur wound care nurse suggests it wont reabsorb Dr. Delarosa consulted for further suggestions pt/ot consulted [facility] resolved with IV fluids current creatinine .72 Hyperthyroidism Synthroid 75 mcg DVT Holding Coumadin SCDs Code Status Full Resuscitation Disposition Lives at home currently [facility] candidate Continued [facility] stay due to: home environment unsafe for pt History Resident Physician Supervision Note: I was present with Dr. Neely during the history and exam. I discussed the case with the resident and agree with the findings and plan as documented in the note. Any exceptions or clarifications are listed here. 77 y/o female h/o atrial fibrillation on coumadin presents with significant R hip hematoma s/p fall w/ significant anemia now s/p 3 UPRBC with improved lightheadedness/fatigue. Agree w/ FOBT and hold heparin drip w/ coumadin 2/2 impending surgical intervention with close monitoring of Hgb, as well as restart of metoprolol and confirmed d/c of amlodipine in light of risks of AF. On examination, extensive right hip hematoma w/ overlying serous vesicles which are generally painful warranting wound care and surgical evaluation.
--- NOTE | 2017-03-15 12:09 | Clinical Documentation Query ---
CLINICAL DOCUMENTATION QUERY 77 year old female who presents to the Emergency Room with complaints of worsening weakness to her legs. Found to be quite anemia with Hgb 5.7 & Hct 17.2 with INR of 6.7 In your clinical opinion is this patient being managed for: x Acute blood loss anemia due to large hip hematoma and Warfarin therapy. ( ) Not Agree ( ) Other explanation of clinical findings (Please Explain) ( ) Unable to determine (Please Define) ( ) Need to Discuss The medical record reflects the following clinical findings, treatment, and risk factors. Clinical Indicators: As above. Pelvic CT showed 11 cm soft tissue mass located lateral to the right hip and proximal femur. This likely represents a hematoma. Treatment: IV Vitamin K, IVF's, Warfarin on hold, 3 units of PRBC's Risk Factors: Warfarin therapy, hematoma, Please clarify and document your clinical opinion in the progress notes and discharge summary. Terms such as "probable", "suspected", "likely", "questionable", "possible", or "still to be ruled out" are acceptable. IF IN AGREEMENT, YOU MUST DOCUMENT ABOVE DIAGNOSTIC STATEMENT IN DAILY PROGRESS NOTES AND DISCHARGE SUMMARY. This document is not part of the patient's record. Thank You, Shane Acosta RN [phone]
[2017-03-15] MEDS ORDERED: HEPARIN IV LOW DOSE NO BOLUS SCH (13:44)
[2017-03-15] MEDS: HEPARIN 25000 UNIT/ D5W 500 ML (PHARMACY PREPARED) IV PRN ×2 (14:19)
[2017-03-15] MEDS ORDERED: WARFARIN SOD 3 MG TAB PO ONE (17:00)
[2017-03-15 20:43] LABS: PARTIAL THROMBOPLASTIN RATIO 1.3
[2017-03-16 00:14] VITALS: BP 105/66; PULSE 117; TEMP 37.4; O2SAT 97
[2017-03-16] MEDS: TRAMADOL HCL 50 MG TAB PO PRN ×2 (01:27→10:32)
[2017-03-16] MEDS: LEVOTHYROXINE 75 MCG TAB PO SCH (06:40)
[2017-03-16 07:30] VITALS: BP 101/58; PULSE 85; TEMP 36.6; O2SAT 98
[2017-03-16 08:09] LABS: BASO % 0.2 %; BASO ABS # 0.03 K/uL (0-0.2); EOS % 4.2 %; HEMATOCRIT 25.9 % (37-47); IG% 1.9 %; LYMPH % 13.8 %; LYMPH ABS # 1.77 K/uL (1.2-3.4); MEAN CELL VOLUME 92.2 fL (80-100); MEAN CORPUSCULAR HEMOGLOBIN 29.2 pg (25-34); MEAN PLATELET VOLUME 9.4 fL (7.4-10.4); MONO % 13.9 %; PLATELET COUNT 221 K/uL (130-400); RED BLOOD COUNT 2.81 M/uL (4.2-5.4); WHITE BLOOD COUNT 12.86 K/uL (4.8-10.8)
[2017-03-16 08:10] LABS: MEAN CORPUSCULAR HGB CONC 31.7 g/dl (32-36)
[2017-03-16] MEDS: AMIODARONE 200 MG TAB PO SCH (08:15)
[2017-03-16] MEDS: CYANOCOBALAMIN 500 MCG TAB (VIT B-12) PO SCH (08:15)
[2017-03-16] MEDS: METOPROLOL TARTRATE 50 MG TAB PO SCH (08:15)
[2017-03-16] MEDS: ATORVASTATIN 20 MG TAB PO SCH (08:15)
[2017-03-16 08:18] LABS: PARTIAL THROMBOPLASTIN RATIO 1.4
[2017-03-16 08:37] LABS: BUN/CREATININE RATIO 21.2 (10-20); CALCIUM 8.4 mg/dl (8.5-10.1); CREATININE 0.7 mg/dl (0.60-1.20); MAGNESIUM 2.1 mg/dl (1.8-2.4); POTASSIUM 4.6 mmol/L (3.5-5.1)
[2017-03-16 08:41] LABS: ANISOCYTOSIS PRESENT; COMPLETE YES; HYPERSEGMENTED POLYS 1+; TOXIC GRANULATION 1+; VACUOLIZATION 1+
--- NOTE | 2017-03-16 11:29 | Family Medicine Progress Note ---
Progress Note Date of Service Mar 16, 2017. Subjective Pt evaluation today including: conversation w/ patient, physical exam, chart review, review of studies, conversation w/ community health consultant, review of inpatient medication list PO Intake: good Voiding: lynch catheter in place Patient continues to have hip pain with ambulation and is nervous to walk Will be seen by excellence specialist this afternoon for further management Gen Surg said they would not want to do any intervention from their end Patient did walk and participate in physical therapy this morning She has not had a bowel movement in 2 days and therefore hasnt provided stool study Constitutional: No fever, No chills, No sweats Respiratory: No cough, No sputum, No wheezing, No shortness of breath Cardiovascular: No chest pain, No edema, No palpitations Abdomen: No pain, No nausea, No vomiting, No diarrhea, No constipation Musculoskeletal: + joint pain, + muscle pain Heme: + abnormal bleeding/bruising Skin: + new/changing skin lesions Medications Current Inpatient Medications Medications (Trade) Dose Ordered Sig/Khris Route Start Time Stop Time Status Last Admin Dose Admin Acetaminophen (Tylenol Tab) 650 mg Q4H PRN PO 03/12/17 22:15 04/11/17 22:14 03/15/17 07:50 650 MG Amiodarone HCl (Cordarone Tab) 200 mg DAILY PO 03/13/17 09:00 04/12/17 08:59 03/16/17 08:15 200 MG Atorvastatin Calcium (Lipitor Tab) 20 mg DAILY PO 03/13/17 09:00 04/12/17 08:59 03/16/17 08:15 20 MG Cyanocobalamin (Vitamin B-12 Tab) 1,000 mcg DAILY PO 03/13/17 09:00 04/12/17 08:59 03/16/17 08:15 1,000 MCG Levothyroxine Sodium (Synthroid Tab) 75 mcg DAILYBB PO 03/13/17 06:00 04/12/17 05:59 03/16/17 06:40 75 MCG Acetaminophen 100 ml @ 400 mls/hr Q8H PRN IV 03/12/17 22:15 04/11/17 22:14 Tramadol HCl (Ultram Tab) 50 mg Q4H PRN PO 03/15/17 02:00 04/14/17 01:59 03/16/17 10:32 50 MG Heparin Sodium (Porcine) 37212 unit/Dextrose 500 ml @ 13 mls/hr Q24H PRN IV 03/15/17 14:00 04/14/17 13:59 Future Hold 03/15/17 14:19 13 MLS/HR Metoprolol Tartrate (Lopressor Tab) 50 mg DAILY PO 03/16/17 09:00 04/15/17 08:59 03/16/17 08:15 50 MG Objective Vital Signs Date Time Temp Pulse Resp B/P (MAP) Pulse Ox O2 Delivery O2 Flow Rate FiO2 03/16/17 08:20 Room Air 03/16/17 07:30 36.6 85 18 101/58 (72) 98 Room Air 03/16/17 00:14 37.4 117 16 105/66 (79) 97 Room Air 03/16/17 00:05 Room Air 03/15/17 20:51 36.6 84 18 133/70 (91) 99 Room Air 03/15/17 20:05 Room Air 03/15/17 16:00 Room Air 03/15/17 14:55 36.6 79 18 112/66 (81) 95 Room Air 03/15/17 12:00 Room Air 03/15/17 11:45 36.6 88 18 94/55 (68) 98 Room Air Physical Exam Notes: General Appearance: WD/WN, no apparent distress, + thin, + pertinent finding ( very thin hair and patient appears frail) Neck: supple, no JVD, no carotid bruits, trachea midline Respiratory/Chest: lungs clear, no respiratory distress, no accessory muscle use Cardiovascular: regular rate, rhythm, no edema, no murmur Abdomen: normal bowel sounds, non tender, soft Neurologic/Psychiatric: alert, normal mood/affect, oriented x 3 Skin: + pertinent finding (large bruise overlying right hip which extends up to lumbar spine and down to mid thigh, small bullae formationa and skin breakdown over bruise) Laboratory Results Results Past 24 Hours Test 03/15/17 19:54 03/16/17 07:50 Range/Units Activated Partial Thromboplast Time 34.5 35.9 21.0-31.0 SECONDS Partial Thromboplastin Ratio 1.3 1.4 White Blood Count 12.86 4.8-10.8 K/uL Red Blood Count 2.81 4.2-5.4 M/uL Hemoglobin 8.2 12.0-16.0 g/dL Hematocrit 25.9 37-47 % Mean Corpuscular Volume 92.2 80-100 fL Mean Corpuscular Hemoglobin 29.2 25-34 pg Mean Corpuscular Hemoglobin Concent 31.7 32-36 g/dl Platelet Count 221 130-400 K/uL Mean Platelet Volume 9.4 7.4-10.4 fL Neutrophils (%) (Auto) 66.0 % Lymphocytes (%) (Auto) 13.8 % Monocytes (%) (Auto) 13.9 % Eosinophils (%) (Auto) 4.2 % Basophils (%) (Auto) 0.2 % Neutrophils # (Auto) 8.48 1.4-6.5 K/uL Lymphocytes # (Auto) 1.77 1.2-3.4 K/uL Monocytes # (Auto) 1.79 0.11-0.59 K/uL Eosinophils # (Auto) 0.54 0-0.5 K/uL Basophils # (Auto) 0.03 0-0.2 K/uL RDW Standard Deviation 58.6 36.4-46.3 fL RDW Coefficient of Variation 18.3 11.5-14.5 % Immature Granulocyte % (Auto) 1.9 % Immature Granulocyte # (Auto) 0.25 0.00-0.02 K/uL Hypersegmented Polys 1+ Toxic Granulation 1+ Toxic Vacuolation 1+ Anisocytosis PRESENT Sodium Level 139 136-145 mmol/L Potassium Level 4.6 3.5-5.1 mmol/L Chloride Level 109 98-107 mmol/L Carbon Dioxide Level 25 21-32 mmol/L Anion Gap 5.0 3-11 mmol/L Blood Urea Nitrogen 15 7-18 mg/dl Creatinine 0.70 0.60-1.20 mg/dl Est Creatinine Clear Calc Drug Dose 56.3 ml/min Estimated GFR () 95.5 Estimated GFR (Non- 82.4 BUN/Creatinine Ratio 21.2 10-20 Random Glucose 99 70-99 mg/dl Calcium Level 8.4 8.5-10.1 mg/dl Magnesium Level 2.1 1.8-2.4 mg/dl Assessment and Plan 77 year old female who presented to the emergency room with complaints of worsening weakness to her legs. Found to be quite anemic with Hgb 5.7 and Hct 17.2 with INR of 6.7. Received 3 units of PRBC and found to have large hematoma over right hip. Right sided hip hematoma is getting larger and is having some mild skin breakdown and bullae formation. Wound care nurse suggest to consult surgery or Dr. Delarosa as hematoma unlikely to reabsorb on its own. Anemia hgb 7.5 this morning and stable received 3 units of PRBC FOBT ordered for completeness Supratherapeutic INR hold coumadin and heparin drip follows with Dr. Canela for afib Afib currently NSR continue amiodarone continue metoprolol and monitor HR hold coumadin order orthostatic as blood pressure 101/58 and would not want patient to become orthostatic and fall R hip ecchymosis 11 cm hematoma lateral to right hip and proximal femur wound care nurse suggests it wont reabsorb Dr. Delarosa consulted for further suggestions pt/ot consulted Constipation start bowel regimen with colace daily no ab pain, nausea, vomiting PEYTON resolved with IV fluids current creatinine .72 Hyperthyroidism Synthroid 75 mcg DVT Holding Coumadin SCDs Code Status Full Resuscitation Disposition Lives at home currently [facility] candidate Continued [facility] stay due to: ambulation difficulties, home environment unsafe for pt Discharge planning: rehab hospital Assessment/Plan I was present with Dr. Neely during the history and exam. I discussed the case with the resident and agree with the findings and plan as documented in the note. Any exceptions or clarifications are listed here. 77 y/o female h/o atrial fibrillation on coumadin presents with significant R hip hematoma s/p fall w/ significant anemia s/p 3 UPRBC. Pt reports gradually improving right hip pain which is aggravated by PT. Skin lesions are draining but not painful or changed. On examination, ecchymosis has intensified at the dependent portions of the wound and visible bullae are present throughout, moreso than yesterday. trace b/l distal edema. CTAB, S1/S2 nl RRR. Regarding the anemia, there is agreement in the record that she is approximately baseline , but FOBT is still pending. Because of atypica of wound, would continue holding AC until post-wound evaluation in case of debridement or changes. Regarding AF, would continue rate/rhythm control with chronic medications and restart AC when able. Monitor CBC daily.
[2017-03-16] MEDS ORDERED: DOCUSATE SODIUM 100 MG CAP PO ONE (12:00)
--- NOTE | 2017-03-16 13:24 | Wound Consultation: Inpatient ---
Wound Consultation Date of Consultation: Mar 16, 2017. Attending Physician: Shravan Meyer MD Reason for Consultation: Traumatic wound right lower extremity History of Present Illness Patient states she's felt twice last week on injuring her right leg. Patient states she continues to have pain in this area and was topically admitted to [facility] for further evaluation. Patient was found to be anemic requiring blood transfusions. Patient currently denies any significant pain in the leg. Patient denies a fever chills or night sweats. Patient denies any chest pain shortness of breath abdominal discomfort nausea or vomiting. Patient denies any other systemic complaints. Family History Cancer Diabetes mellitus Gallbladder disease Hypertension Social History Smoking Status: Never Smoker Smokeless Tobacco Use: No Alcohol Use: none Drug Use: none Marital Status: Housing Status: lives with significant other Occupation Status: retired Allergies Coded Allergies: Quinolones (Unverified Adverse Reaction, Mild, HIVES, 03/10/17) Tendonitis Sulfamethoxazole w/Trimethoprim (Unverified Adverse Reaction, Mild, GI SYMPTOMS, 03/10/17) Home Medications Scheduled Amiodarone Hcl (Cordarone), 1 TAB PO DAILY Amlodipine (Norvasc), 5 MG PO DAILY Atorvastatin (Lipitor), 1 TAB PO DAILY Calcium Carbonate-Vitamin D (Calcium), 1 TAB PEG DAILY Calcium Polycarbophil (Fiber Laxative), 625 MG PO BID Cyanocobalamin (Vitamin B-12), 1,000 MCG PO DAILY Furosemide (Lasix), 20 MG PO DAILY Levothyroxine Sodium (Levothyroxine Sodium), 75 MCG PO DAILY Magnesium Oxide (Mag-Ox), 400 MG PO DAILY Metoprolol Tartrate (Lopressor) (Lopressor), 50 MG PO DAILY Multivitamin (Multivitamin), 1 TABLET PO DAILY Warfarin Sod (Jantoven), 2.5 MG PO ONLY ON WED Warfarin Sod (Jantoven), 5 MG PO DAILY EXCEPT ON WED Inpatient Medications Current Inpatient Medications Medications (Trade) Dose Ordered Sig/Khris Route Start Time Stop Time Status Last Admin Dose Admin Acetaminophen (Tylenol Tab) 650 mg Q4H PRN PO 03/12/17 22:15 04/11/17 22:14 03/15/17 07:50 650 MG Amiodarone HCl (Cordarone Tab) 200 mg DAILY PO 03/13/17 09:00 04/12/17 08:59 03/16/17 08:15 200 MG Atorvastatin Calcium (Lipitor Tab) 20 mg DAILY PO 03/13/17 09:00 04/12/17 08:59 03/16/17 08:15 20 MG Cyanocobalamin (Vitamin B-12 Tab) 1,000 mcg DAILY PO 03/13/17 09:00 04/12/17 08:59 03/16/17 08:15 1,000 MCG Levothyroxine Sodium (Synthroid Tab) 75 mcg DAILYBB PO 03/13/17 06:00 04/12/17 05:59 03/16/17 06:40 75 MCG Acetaminophen 100 ml @ 400 mls/hr Q8H PRN IV 03/12/17 22:15 04/11/17 22:14 Tramadol HCl (Ultram Tab) 50 mg Q4H PRN PO 03/15/17 02:00 04/14/17 01:59 03/16/17 10:32 50 MG Heparin Sodium (Porcine) 55944 unit/Dextrose 500 ml @ 13 mls/hr Q24H PRN IV 03/15/17 14:00 04/14/17 13:59 Future Hold 03/15/17 14:19 13 MLS/HR Metoprolol Tartrate (Lopressor Tab) 50 mg DAILY PO 03/16/17 09:00 04/15/17 08:59 03/16/17 08:15 50 MG Docusate Sodium (coLACE CAP) 100 mg BID PO 03/16/17 21:00 04/15/17 20:59 Physical Exam Date Time Temp Pulse Resp B/P (MAP) Pulse Ox O2 Delivery O2 Flow Rate FiO2 03/16/17 08:20 Room Air 03/16/17 07:30 36.6 85 18 101/58 (72) 98 Room Air 03/16/17 00:14 37.4 117 16 105/66 (79) 97 Room Air 03/16/17 00:05 Room Air 03/15/17 20:51 36.6 84 18 133/70 (91) 99 Room Air 03/15/17 20:05 Room Air 03/15/17 16:00 Room Air 03/15/17 14:55 36.6 79 18 112/66 (81) 95 Room Air General: The patient is lying in a hospital bed in no distress. Alert, cooperative and appropriate to all questions. HEENT: Pupils equal and reactive to light. Sclera clear, EOM intact. Neck: Supple, No JVD noted Chest: CTA in all lud[place]. No deformity Heart: RRR without murmurs, S3, S4, thrills, rubs or heaves Extremities: A large area of ecchymosis is noted in the lateral aspect of the right lower extremity. Scattered peripheral bullae were noted. The sites were clear filled. There is areas of evulsed epidermis at the site. There is no active drainage noted. There is pain to palpation with fluctuance present. No significant periwound erythema noted. Range of motion appears intact. Distal neurovascular bundles intact. Neurological: Alert and oriented x3. No focal deficits. Laboratory Results Last 24 Hours Test 03/15/17 19:54 03/16/17 07:50 Activated Partial Thromboplast Time 34.5 SECONDS 35.9 SECONDS Partial Thromboplastin Ratio 1.3 1.4 White Blood Count 12.86 K/uL Red Blood Count 2.81 M/uL Hemoglobin 8.2 g/dL Hematocrit 25.9 % Mean Corpuscular Volume 92.2 fL Mean Corpuscular Hemoglobin 29.2 pg Mean Corpuscular Hemoglobin Concent 31.7 g/dl Platelet Count 221 K/uL Mean Platelet Volume 9.4 fL Neutrophils (%) (Auto) 66.0 % Lymphocytes (%) (Auto) 13.8 % Monocytes (%) (Auto) 13.9 % Eosinophils (%) (Auto) 4.2 % Basophils (%) (Auto) 0.2 % Neutrophils # (Auto) 8.48 K/uL Lymphocytes # (Auto) 1.77 K/uL Monocytes # (Auto) 1.79 K/uL Eosinophils # (Auto) 0.54 K/uL Basophils # (Auto) 0.03 K/uL RDW Standard Deviation 58.6 fL RDW Coefficient of Variation 18.3 % Immature Granulocyte % (Auto) 1.9 % Immature Granulocyte # (Auto) 0.25 K/uL Hypersegmented Polys 1+ Toxic Granulation 1+ Toxic Vacuolation 1+ Anisocytosis PRESENT Sodium Level 139 mmol/L Potassium Level 4.6 mmol/L Chloride Level 109 mmol/L Carbon Dioxide Level 25 mmol/L Anion Gap 5.0 mmol/L Blood Urea Nitrogen 15 mg/dl Creatinine 0.70 mg/dl Est Creatinine Clear Calc Drug Dose 56.3 ml/min Estimated GFR () 95.5 Estimated GFR (Non- 82.4 BUN/Creatinine Ratio 21.2 Random Glucose 99 mg/dl Calcium Level 8.4 mg/dl Magnesium Level 2.1 mg/dl Assessment & Plan Assessment: Large hematoma with scattered bullae right lower extremity Plan: At this time the surrounding bullae well as the underlying hematoma required evacuation. With the patient's permission the site was prepped with Betadine. The area was infiltrated with lidocaine 2% without epinephrine. The surrounding bullae were opened with blunt dissection. No active bleeding was noted. A vertical incision was made approximate 7 cm with a #11 blade. A large underlying hematoma was partially evacuated of approximately 200 mL of clotted. No active bleeding was noted. The site was copiously irrigated with normal saline and further clot was suctioned. Again no evidence of active bleeding was present. The site was then subsequently dressed with a regaining wound VAC black foam 125 mm of negative pressure 2 hours on 10 minutes with insulation. The site will be reevaluated tomorrow with VAC change. Patient tolerated the procedure well. Total time of the procedure was 30 minutes.
[2017-03-16 15:33] VITALS: BP 92/50; PULSE 51; TEMP 36.3; O2SAT 97
[2017-03-16 16:00] VITALS: O2SAT 96
[2017-03-16] MEDS ORDERED: WARFARIN SOD 3 MG TAB PO SCH (16:00)
[2017-03-16 19:50] VITALS: BP 102/47; PULSE 54; TEMP 37.1; O2SAT 99
[2017-03-16] MEDS: DOCUSATE SODIUM 100 MG CAP PO SCH (20:57)
[2017-03-16 23:55] VITALS: BP 102/59; PULSE 56; TEMP 36.7; O2SAT 98
[2017-03-17] MEDS: LEVOTHYROXINE 75 MCG TAB PO SCH (06:06)
[2017-03-17] MEDS: TRAMADOL HCL 50 MG TAB PO PRN ×2 (06:06→12:36)
[2017-03-17 08:04] VITALS: BP 103/58; PULSE 71; TEMP 36.7; O2SAT 99
[2017-03-17] MEDS: AMIODARONE 200 MG TAB PO SCH (08:20)
[2017-03-17] MEDS: DOCUSATE SODIUM 100 MG CAP PO SCH ×2 (08:21→20:14)
[2017-03-17] MEDS: ATORVASTATIN 20 MG TAB PO SCH (08:21)
[2017-03-17] MEDS: CYANOCOBALAMIN 500 MCG TAB (VIT B-12) PO SCH (08:21)
[2017-03-17] MEDS: METOPROLOL TARTRATE 50 MG TAB PO SCH (08:21)
[2017-03-17 08:23] LABS: BASO % 0.2 %; BASO ABS # 0.04 K/uL (0-0.2); EOS % 4.2 %; HEMATOCRIT 26.4 % (37-47); IG% 3.9 %; LYMPH % 13.1 %; LYMPH ABS # 2.09 K/uL (1.2-3.4); MEAN CELL VOLUME 93.3 fL (80-100); MEAN CORPUSCULAR HEMOGLOBIN 29.7 pg (25-34); MEAN PLATELET VOLUME 9.2 fL (7.4-10.4); MONO % 15.4 %; NEUT % 63.2 %; PLATELET COUNT 239 K/uL (130-400); RED BLOOD COUNT 2.83 M/uL (4.2-5.4); WHITE BLOOD COUNT 16.01 K/uL (4.8-10.8)
[2017-03-17 08:41] LABS: PARTIAL THROMBOPLASTIN RATIO 1.4
[2017-03-17 08:45] LABS: COMPLETE YES; LARGE PLATELETS 1+; MEAN CORPUSCULAR HGB CONC 31.8 g/dl (32-36)
[2017-03-17] MEDS ORDERED: MoRPHine SULFATE 2 MG/ML CARP ONE (11:59)
[2017-03-17] MEDS ORDERED: NURSING VERBAL MED ORDER ONE (12:00)
[2017-03-17 14:59] VITALS: BP 110/64; PULSE 40; TEMP 36.5; O2SAT 99
--- NOTE | 2017-03-17 15:23 | Family Medicine Progress Note ---
Progress Note Date of Service Mar 17, 2017. 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 w/ reservoir engineering consultant, review of inpatient medication list Pain: mild-moderate PO Intake: good Voiding: lynch catheter in place Patient continues to have 10/10 pain when walking She denies any pain at rest She had a wound vac placed yesterday and redressed this morning. She had 350ml of blood output Still has not had a bm in a couple days Constitutional: No fever, No chills, No sweats Respiratory: No cough, No sputum, No shortness of breath Cardiovascular: No chest pain, No edema, No claudication, No palpitations Abdomen: + constipation, No pain, No nausea, No vomiting Musculoskeletal: + joint pain, + muscle pain, No calf pain Heme: + abnormal bleeding/bruising Medications Current Inpatient Medications Medications (Trade) Dose Ordered Sig/Khris Route Start Time Stop Time Status Last Admin Dose Admin Acetaminophen (Tylenol Tab) 650 mg Q4H PRN PO 03/12/17 22:15 04/11/17 22:14 03/15/17 07:50 650 MG Amiodarone HCl (Cordarone Tab) 200 mg DAILY PO 03/13/17 09:00 04/12/17 08:59 03/17/17 08:20 200 MG Atorvastatin Calcium (Lipitor Tab) 20 mg DAILY PO 03/13/17 09:00 04/12/17 08:59 03/17/17 08:21 20 MG Cyanocobalamin (Vitamin B-12 Tab) 1,000 mcg DAILY PO 03/13/17 09:00 04/12/17 08:59 03/17/17 08:21 1,000 MCG Levothyroxine Sodium (Synthroid Tab) 75 mcg DAILYBB PO 03/13/17 06:00 04/12/17 05:59 03/17/17 06:06 75 MCG Acetaminophen 100 ml @ 400 mls/hr Q8H PRN IV 03/12/17 22:15 04/11/17 22:14 Tramadol HCl (Ultram Tab) 50 mg Q4H PRN PO 03/15/17 02:00 04/14/17 01:59 03/17/17 12:36 50 MG Heparin Sodium (Porcine) 61709 unit/Dextrose 500 ml @ 13 mls/hr Q24H PRN IV 03/15/17 14:00 04/14/17 13:59 Future Hold 03/15/17 14:19 13 MLS/HR Metoprolol Tartrate (Lopressor Tab) 50 mg DAILY PO 03/16/17 09:00 04/15/17 08:59 03/17/17 08:21 50 MG Docusate Sodium (coLACE CAP) 100 mg BID PO 03/16/17 21:00 04/15/17 20:59 03/17/17 08:21 100 MG Objective Vital Signs Date Time Temp Pulse Resp B/P (MAP) Pulse Ox O2 Delivery O2 Flow Rate FiO2 03/17/17 14:59 36.5 40 19 110/64 (79) 99 03/17/17 13:45 Room Air 03/17/17 08:04 36.7 71 18 103/58 (73) 99 03/17/17 08:00 Room Air 03/17/17 00:00 Room Air 03/16/17 23:55 36.7 56 16 102/59 (73) 98 Room Air 03/16/17 19:50 37.1 54 18 102/47 (65) 99 Room Air 03/16/17 16:00 96 Room Air 03/16/17 15:33 36.3 51 18 92/50 (64) 97 Room Air Physical Exam Notes: General Appearance: WD/WN, no apparent distress, + thin, + pertinent finding ( very thin hair and patient appears frail) Neck: supple, no JVD, no carotid bruits, trachea midline Respiratory/Chest: lungs clear, no respiratory distress, no accessory muscle use Cardiovascular: regular rate, rhythm, no edema, no murmur Abdomen: normal bowel sounds, non tender, soft Neurologic/Psychiatric: alert, normal mood/affect, oriented x 3 Skin: + pertinent finding (large bruise overlying right hip which extends up to lumbar spine and down to mid thigh, much improved compared to yesterday. wound vac in place which has drained 350ml of blood Laboratory Results Results Past 24 Hours Test 03/17/17 08:06 Range/Units White Blood Count 16.01 4.8-10.8 K/uL Red Blood Count 2.83 4.2-5.4 M/uL Hemoglobin 8.4 12.0-16.0 g/dL Hematocrit 26.4 37-47 % Mean Corpuscular Volume 93.3 80-100 fL Mean Corpuscular Hemoglobin 29.7 25-34 pg Mean Corpuscular Hemoglobin Concent 31.8 32-36 g/dl Platelet Count 239 130-400 K/uL Mean Platelet Volume 9.2 7.4-10.4 fL Neutrophils (%) (Auto) 63.2 % Lymphocytes (%) (Auto) 13.1 % Monocytes (%) (Auto) 15.4 % Eosinophils (%) (Auto) 4.2 % Basophils (%) (Auto) 0.2 % Neutrophils # (Auto) 10.11 1.4-6.5 K/uL Lymphocytes # (Auto) 2.09 1.2-3.4 K/uL Monocytes # (Auto) 2.47 0.11-0.59 K/uL Eosinophils # (Auto) 0.68 0-0.5 K/uL Basophils # (Auto) 0.04 0-0.2 K/uL RDW Standard Deviation 60.2 36.4-46.3 fL RDW Coefficient of Variation 18.3 11.5-14.5 % Immature Granulocyte % (Auto) 3.9 % Immature Granulocyte # (Auto) 0.62 0.00-0.02 K/uL Large Platelets 1+ Activated Partial Thromboplast Time 36.4 21.0-31.0 SECONDS Partial Thromboplastin Ratio 1.4 Assessment and Plan 77 year old female who presented to the emergency room with complaints of worsening weakness to her legs. Found to be quite anemic with Hgb 5.7 and Hct 17.2 with INR of 6.7. Received 3 units of PRBC and found to have large hematoma over right hip. Right sided hip hematoma is getting larger and is having some mild skin breakdown and bullae formation. Dr. Delarosa was consulted who has placed a wound vac on 03/16/2017. She had the wound vac replaced yesterday and will need drain in place for at least 2 days and then can switch to outpatient wound vac. Plan to restart anticoagulation tomorrow Anemia hgb 8.4 this morning and stable received 3 units of PRBC Supratherapeutic INR hold coumadin and heparin drip follows with Dr. Canela for afib restart anticoagulation tomorrow Afib currently NSR continue amiodarone continue metoprolol and monitor HR hold coumadin, restart tomorrow R hip ecchymosis 11 cm hematoma lateral to right hip and proximal femur Dr. Delarosa placed wound vac which drained well Constipation start bowel regimen with colace daily and miralax no ab pain, nausea, vomiting PEYTON resolved with IV fluids current creatinine .72 Hyperthyroidism Synthroid 75 mcg DVT Holding Coumadin SCDs Code Status Full Resuscitation Disposition Lives at home currently [place] [facility] referral made, plan for either wednesday or wednesday Continued [facility] stay due to: ambulation difficulties, home environment unsafe for pt Discharge planning: rehab hospital Assessment/Plan Resident Physician Supervision Note: I was present with Dr. Neely during the history and exam. I discussed the case with the resident and agree with the findings and plan as documented in the note. Any exceptions or clarifications are listed here. 77 y/o female h/o atrial fibrillation on coumadin presents with significant R hip hematoma s/p fall w/ significant anemia s/p 3 UPRBC. Right hip pain is mildly improved though it was exacerbated with wound care, now with vac in place. On examination, ecchymosis has improved following irrigation and debridement and vac is draining well. Trace b/l distal edema. CTAB, S1/S2 nl RRR. Regarding the anemia, there is agreement in the record that she is approximately baseline, but FOBT is still pending. For her wound, Dr. Neely and Dr. Delarosa are in agreement re: inpatient wound care until Wednesday and then placement. Regarding AF, would continue rate/rhythm control with chronic medications and restart AC tomorrow. Monitor CBC daily.
[2017-03-17] MEDS ORDERED: POLYETHYLENE (MIRALAX) 17 GM PACK PO ONE (16:00)
[2017-03-17 16:37] VITALS: O2SAT 99
[2017-03-17 21:02] VITALS: BP 99/46; PULSE 57; O2SAT 97
[2017-03-17 21:19] VITALS: BP 100/54; PULSE 54; TEMP 37.2; O2SAT 96
[2017-03-18 00:16] VITALS: BP 98/48; PULSE 63; TEMP 36.7; O2SAT 94
[2017-03-18] MEDS: TRAMADOL HCL 50 MG TAB PO PRN ×2 (03:27→19:02)
[2017-03-18] MEDS: LEVOTHYROXINE 75 MCG TAB PO SCH (06:12)
[2017-03-18 06:41] LABS: HEMATOCRIT 25.8 % (37-47); HEMATOCRIT 26.1 % (37-47); MEAN CELL VOLUME 93.1 fL (80-100); MEAN CELL VOLUME 93.5 fL (80-100); MEAN CORPUSCULAR HEMOGLOBIN 28.7 pg (25-34); MEAN CORPUSCULAR HEMOGLOBIN 29.2 pg (25-34); MEAN CORPUSCULAR HGB CONC 30.7 g/dl (32-36); MEAN PLATELET VOLUME 9.1 fL (7.4-10.4); MEAN PLATELET VOLUME 9.3 fL (7.4-10.4); PLATELET COUNT 256 K/uL (130-400); PLATELET COUNT 274 K/uL (130-400); RED BLOOD COUNT 2.77 M/uL (4.2-5.4); RED BLOOD COUNT 2.79 M/uL (4.2-5.4); WHITE BLOOD COUNT 19.68 K/uL (4.8-10.8); WHITE BLOOD COUNT 20.29 K/uL (4.8-10.8)
[2017-03-18 06:46] LABS: MEAN CORPUSCULAR HGB CONC 31.4 g/dl (32-36)
[2017-03-18 06:51] LABS: PARTIAL THROMBOPLASTIN RATIO 1.3
[2017-03-18 07:12] LABS: ANISOCYTOSIS PRESENT; BASO % 0.3 %; BASO ABS # 0.06 K/uL (0-0.2); COMPLETE YES; EOS % 3.1 %; HYPERSEGMENTED POLYS 1+; IG% 4.9 %; LYMPH % 14.5 %; LYMPH ABS # 2.95 K/uL (1.2-3.4); MONO % 14.1 %; NEUT % 63.1 %; POLYCHROMASIA 1+; TOXIC GRANULATION 1+; VACUOLIZATION 1+
[2017-03-18 07:13] LABS: BUN/CREATININE RATIO 29.1 (10-20); CALCIUM 8.4 mg/dl (8.5-10.1); CREATININE 0.88 mg/dl (0.60-1.20); POTASSIUM 4.9 mmol/L (3.5-5.1)
[2017-03-18 07:17] VITALS: BP 114/63; PULSE 66; TEMP 36.7; O2SAT 100
[2017-03-18] MEDS: CYANOCOBALAMIN 500 MCG TAB (VIT B-12) PO SCH (08:11)
[2017-03-18] MEDS: ATORVASTATIN 20 MG TAB PO SCH (08:11)
[2017-03-18] MEDS: AMIODARONE 200 MG TAB PO SCH (08:11)
[2017-03-18] MEDS: DOCUSATE SODIUM 100 MG CAP PO SCH ×2 (08:11→20:35)
[2017-03-18] MEDS: METOPROLOL TARTRATE 50 MG TAB PO SCH (08:11)
[2017-03-18] MEDS: POLYETHYLENE (MIRALAX) 17 GM PACK PO SCH (08:12)
[2017-03-18 11:21] VITALS: BP 114/62; PULSE 64; TEMP 36.8; O2SAT 98
--- NOTE | 2017-03-18 12:55 | Family Medicine Progress Note ---
Progress Note Date of Service Mar 18, 2017. 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 w/ hr business partner consultant, review of inpatient medication list Pain: 10/10 when ambulating PO Intake: good Voiding: lynch catheter in place Patient has no hip pain at rest but rates her hip pain as a 10/10 when walking She has had good drainage from her wound vac with 250ml since it being changed yesterday She had an elevation in her WCC overnight Constitutional: No fever, No chills, No sweats Respiratory: No cough, No sputum, No shortness of breath Cardiovascular: No chest pain, No edema, No palpitations Abdomen: + constipation, No pain, No nausea, No vomiting, No diarrhea Musculoskeletal: + joint pain, + muscle pain, + swelling Skin: + new/changing skin lesions Medications Current Inpatient Medications Medications (Trade) Dose Ordered Sig/Khris Route Start Time Stop Time Status Last Admin Dose Admin Acetaminophen (Tylenol Tab) 650 mg Q4H PRN PO 03/12/17 22:15 04/11/17 22:14 03/15/17 07:50 650 MG Amiodarone HCl (Cordarone Tab) 200 mg DAILY PO 03/13/17 09:00 04/12/17 08:59 03/18/17 08:11 200 MG Atorvastatin Calcium (Lipitor Tab) 20 mg DAILY PO 03/13/17 09:00 04/12/17 08:59 03/18/17 08:11 20 MG Cyanocobalamin (Vitamin B-12 Tab) 1,000 mcg DAILY PO 03/13/17 09:00 04/12/17 08:59 03/18/17 08:11 1,000 MCG Levothyroxine Sodium (Synthroid Tab) 75 mcg DAILYBB PO 03/13/17 06:00 04/12/17 05:59 03/18/17 06:12 75 MCG Acetaminophen 100 ml @ 400 mls/hr Q8H PRN IV 03/12/17 22:15 04/11/17 22:14 Tramadol HCl (Ultram Tab) 50 mg Q4H PRN PO 03/15/17 02:00 04/14/17 01:59 03/18/17 03:27 50 MG Heparin Sodium (Porcine) 52257 unit/Dextrose 500 ml @ 13 mls/hr Q24H PRN IV 03/15/17 14:00 04/14/17 13:59 Future Hold 03/15/17 14:19 13 MLS/HR Metoprolol Tartrate (Lopressor Tab) 50 mg DAILY PO 03/16/17 09:00 04/15/17 08:59 03/18/17 08:11 50 MG Docusate Sodium (coLACE CAP) 100 mg BID PO 03/16/17 21:00 04/15/17 20:59 03/18/17 08:11 100 MG Polyethylene (Miralax Powder Packet) 17 gm DAILY PO 03/18/17 09:00 04/17/17 08:59 03/18/17 08:12 17 GM Objective Vital Signs Date Time Temp Pulse Resp B/P (MAP) Pulse Ox O2 Delivery O2 Flow Rate FiO2 03/18/17 11:21 36.8 64 18 114/62 (79) 98 Room Air 03/18/17 08:00 Room Air 03/18/17 07:17 36.7 66 18 114/63 (80) 100 Room Air 03/18/17 00:16 36.7 63 16 98/48 (65) 94 Room Air 03/18/17 00:00 Room Air 03/17/17 21:19 37.2 54 20 100/54 (69) 96 Room Air 03/17/17 21:02 57 20 99/46 (63) 97 Room Air 03/17/17 16:37 99 Room Air 03/17/17 14:59 36.5 40 19 110/64 (79) 99 03/17/17 13:45 Room Air Physical Exam Notes: General Appearance: WD/WN, no apparent distress, + thin, + pertinent finding ( very thin hair and patient appears frail) Neck: supple, no JVD, no carotid bruits, trachea midline Respiratory/Chest: no respiratory distress, no accessory muscle use, rhonchi at the LLLB Cardiovascular: regular rate, rhythm, no edema, no murmur Abdomen: normal bowel sounds, non tender, soft Neurologic/Psychiatric: alert, normal mood/affect, oriented x 3 Skin: + pertinent finding (large bruise overlying right hip which extends up to lumbar spine and down to mid thigh, much improved compared to yesterday. wound vac in place which has drained 250ml overnight Laboratory Results Results Past 24 Hours Test 03/18/17 06:27 Range/Units White Blood Count 19.68 4.8-10.8 K/uL Red Blood Count 2.77 4.2-5.4 M/uL Hemoglobin 8.1 12.0-16.0 g/dL Hematocrit 25.8 37-47 % Mean Corpuscular Volume 93.1 80-100 fL Mean Corpuscular Hemoglobin 29.2 25-34 pg Mean Corpuscular Hemoglobin Concent 31.4 32-36 g/dl Platelet Count 256 130-400 K/uL Mean Platelet Volume 9.1 7.4-10.4 fL Neutrophils (%) (Auto) 63.1 % Lymphocytes (%) (Auto) 14.5 % Monocytes (%) (Auto) 14.1 % Eosinophils (%) (Auto) 3.1 % Basophils (%) (Auto) 0.3 % Neutrophils # (Auto) 12.80 1.4-6.5 K/uL Lymphocytes # (Auto) 2.95 1.2-3.4 K/uL Monocytes # (Auto) 2.87 0.11-0.59 K/uL Eosinophils # (Auto) 0.62 0-0.5 K/uL Basophils # (Auto) 0.06 0-0.2 K/uL RDW Standard Deviation 59.8 36.4-46.3 fL RDW Coefficient of Variation 18.1 11.5-14.5 % Immature Granulocyte % (Auto) 4.9 % Immature Granulocyte # (Auto) 0.99 0.00-0.02 K/uL Nucleated RBC Absolute Count (auto) 0.02 0-0 K/uL Nucleated Red Blood Cells % 0.1 % Hypersegmented Polys 1+ Toxic Granulation 1+ Toxic Vacuolation 1+ Polychromasia 1+ Anisocytosis PRESENT Activated Partial Thromboplast Time 33.1 21.0-31.0 SECONDS Partial Thromboplastin Ratio 1.3 Sodium Level 134 136-145 mmol/L Potassium Level 4.9 3.5-5.1 mmol/L Chloride Level 103 98-107 mmol/L Carbon Dioxide Level 26 21-32 mmol/L Anion Gap 5.0 3-11 mmol/L Blood Urea Nitrogen 26 7-18 mg/dl Creatinine 0.88 0.60-1.20 mg/dl Est Creatinine Clear Calc Drug Dose 44.6 ml/min Estimated GFR () 72.4 Estimated GFR (Non- 62.5 BUN/Creatinine Ratio 29.1 10-20 Random Glucose 94 70-99 mg/dl Calcium Level 8.4 8.5-10.1 mg/dl Assessment and Plan 77 year old female who presented to the emergency room with complaints of worsening weakness to her legs. Found to be quite anemic with Hgb 5.7 and Hct 17.2 with INR of 6.7. Received 3 units of PRBC and found to have large hematoma over right hip. Right sided hip hematoma was getting larger and was having some mild skin breakdown and bullae formation. Dr. Delarosa was consulted who has placed a wound vac on 03/16/2017. She had the wound vac replaced two days ago and will need drain in place for at least 2 days and then can switch to outpatient wound vac. We are going to restart patient on anticoagulation today with the plan to follow for any dropping hgb or ongoing bleeding. She did have a bump in her WCC and rhonchi heard at the LLB therefore will order CXR. She also has persistent R hip pain so will order hip xray to examine for small hairline fracture. Anemia hgb 8.0 this morning and stable received 3 units of PRBC Supratherapeutic INR coumadin and heparin restarted today, will monitor for bleeding follows with Dr. Canela for afib Afib currently NSR continue amiodarone continue metoprolol and monitor HR restart coumadin at 3mg daily follow INR Elevated WCC likely from procedure done by Dr. Delarosa has new findings of rhonchi at RLL therefore will order CXR, add incentive spirometer and flutter valve R hip ecchymosis 11 cm hematoma lateral to right hip and proximal femur Dr. Delarosa placed wound vac which is draining well Plan to put on outpatient vac tomorrow persistent pain at R hip, possibility of hairline fracture not appearing on original imaging therefore will order hip XRAY Constipation start bowel regimen with colace daily and miralax no ab pain, nausea, vomiting PEYTON resolved with IV fluids current creatinine .88 Hyperthyroidism Synthroid 75 mcg DVT Restart Coumadin SCDs Code Status Full Resuscitation Disposition Lives at home currently [facility] referral made, plan for either wednesday or wednesday Continued [facility] stay due to: ambulation difficulties, multiple IV medications needed Assessment/Plan Resident Physician Supervision Note: I was present with Dr. Neely during the history and exam. I discussed the case with the resident and agree with the findings and plan as documented in the note. Any exceptions or clarifications are listed here. 77 y/o female h/o atrial fibrillation on coumadin presents with significant R hip hematoma s/p fall w/ significant anemia s/p 3 UPRBC. Right hip pain is persistent with ambulation. Vac in place and draining. Ecchymosis has improved following irrigation and debridement, still dependant but fading. Trace b/l distal edema. CTAB, S1/S2 nl RRR. Will restart AC under observation today to monitor for increased bleeding and will transfuse at 7 if needed. Will continue inpatient wound care until Wednesday and then placement (case mgmt aware). Continue rate/rhythm control with chronic medications. Regarding pulmonary examination, no finding on my exam but some mildly increased infiltrate (?) on CXR read with elevated white count which coincides with debridement. Will re-assess in the AM and check repeat WBC and determine if treatment or observation would be more prudent, likely the latter without clinical manifestation.
--- NOTE | 2017-03-18 12:59 | Wound Progress Note: Inpatient ---
Wound Progress Note Date of Service Mar 17, 2017. Subjective Pt evaluation today including: conversation w/ patient, physical exam, chart review Patient seen today for follow-up reevaluation of an evacuation of a hematoma right lower extremity yesterday. Patient has been tolerating the irrigating wound VAC without difficulty. Patient states his been minimal pain at the site. Patient denies any fever chills or night sweats. Objective Vital Signs Date Time Temp Pulse Resp B/P (MAP) Pulse Ox O2 Delivery O2 Flow Rate FiO2 03/18/17 11:21 36.8 64 18 114/62 (79) 98 Room Air 03/18/17 08:00 Room Air 03/18/17 07:17 36.7 66 18 114/63 (80) 100 Room Air 03/18/17 00:16 36.7 63 16 98/48 (65) 94 Room Air 03/18/17 00:00 Room Air 03/17/17 21:19 37.2 54 20 100/54 (69) 96 Room Air 03/17/17 21:02 57 20 99/46 (63) 97 Room Air 03/17/17 16:37 99 Room Air 03/17/17 14:59 36.5 40 19 110/64 (79) 99 03/17/17 13:45 Room Air Physical Exam Notes: Patients vital signs were reviewed and found to be unremarkable patient is afebrile the site today shows the presence of some additional o'clock to still be noted in the base. The periwound erythema that was present yesterday has reduced. There is no active drainage or odor present. No significant pain to palpation or fluctuance in the periphery. Laboratory Results Last 24 Hours Test 03/18/17 06:27 White Blood Count 19.68 K/uL Red Blood Count 2.77 M/uL Hemoglobin 8.1 g/dL Hematocrit 25.8 % Mean Corpuscular Volume 93.1 fL Mean Corpuscular Hemoglobin 29.2 pg Mean Corpuscular Hemoglobin Concent 31.4 g/dl Platelet Count 256 K/uL Mean Platelet Volume 9.1 fL Neutrophils (%) (Auto) 63.1 % Lymphocytes (%) (Auto) 14.5 % Monocytes (%) (Auto) 14.1 % Eosinophils (%) (Auto) 3.1 % Basophils (%) (Auto) 0.3 % Neutrophils # (Auto) 12.80 K/uL Lymphocytes # (Auto) 2.95 K/uL Monocytes # (Auto) 2.87 K/uL Eosinophils # (Auto) 0.62 K/uL Basophils # (Auto) 0.06 K/uL RDW Standard Deviation 59.8 fL RDW Coefficient of Variation 18.1 % Immature Granulocyte % (Auto) 4.9 % Immature Granulocyte # (Auto) 0.99 K/uL Nucleated RBC Absolute Count (auto) 0.02 K/uL Nucleated Red Blood Cells % 0.1 % Hypersegmented Polys 1+ Toxic Granulation 1+ Toxic Vacuolation 1+ Polychromasia 1+ Anisocytosis PRESENT Activated Partial Thromboplast Time 33.1 SECONDS Partial Thromboplastin Ratio 1.3 Sodium Level 134 mmol/L Potassium Level 4.9 mmol/L Chloride Level 103 mmol/L Carbon Dioxide Level 26 mmol/L Anion Gap 5.0 mmol/L Blood Urea Nitrogen 26 mg/dl Creatinine 0.88 mg/dl Est Creatinine Clear Calc Drug Dose 44.6 ml/min Estimated GFR () 72.4 Estimated GFR (Non- 62.5 BUN/Creatinine Ratio 29.1 Random Glucose 94 mg/dl Calcium Level 8.4 mg/dl Assessment and Plan Assessment: Large hematoma right lower extremity Plan: At this time further evacuation of existing hematoma was required. With patient's permission after infiltration of lidocaine 2% the clot was blunt dissected and removed with suction copious irrigation of normal saline. No active bleeding was noted. The site was then subsequently dressed with a regaining wound VAC black foam 125 mm of negative pressure 2 hours on 20 minutes with instillation of saline. The site will be reevaluated in 48 hours with VAC change. Patient tolerated the procedure well. Total time of the procedure was 30 minutes.
[2017-03-18] MEDS ORDERED: HEPARIN IV LOW DOSE NO BOLUS STA (13:08)
[2017-03-18] MEDS: HEPARIN 25000 UNIT/ D5W 500 ML (PHARMACY PREPARED) IV PRN ×4 (13:39→20:33)
--- NOTE | 2017-03-18 14:53 | DIAGNOSTIC IMAGING REPORT ---
CHEST 2 VIEWS ROUTINE CLINICAL HISTORY: Increased WCC and crackles at RLL base pain COMPARISON STUDY: 03/10/2017 FINDINGS: Mild stable cardiomegaly. Interstitial markings right base considered chronic. A potential slight increase in density left base. Mid and upper lungs are considered clear. Chronic fibrocalcific change pulmonary apices. IMPRESSION: 1. Chronic changes right base. 2. Probable early parenchymal infiltrate left base. The above report was generated using voice recognition software. It may contain grammatical, syntax or spelling errors. Electronically signed by: Kodi Tanner M.D. 03/18/2017 2:52 PM Dictated Date/Time: 03/18/2017 2:51 PM
[2017-03-18 15:54] VITALS: BP 110/61; PULSE 71; TEMP 36.9; O2SAT 94
[2017-03-18 16:02] LABS: INR 1.1 (0.9-1.1); PROTHROMBIN TIME (PATIENT) 11.6 SECONDS (9.0-12.0)
[2017-03-18] MEDS: WARFARIN SOD 3 MG TAB PO SCH (16:11)
[2017-03-18 19:58] LABS: PARTIAL THROMBOPLASTIN RATIO 1.5
[2017-03-18] MEDS ORDERED: HEPARIN IV BOLUS 4,000 UNIT in SYRINGE 0 ML IV ONE (20:15)
[2017-03-18 23:47] VITALS: BP 103/58; PULSE 73; TEMP 36.9; O2SAT 93
[2017-03-19] MEDS: TRAMADOL HCL 50 MG TAB PO PRN (01:37)
[2017-03-19] MEDS: HEPARIN 25000 UNIT/ D5W 500 ML (PHARMACY PREPARED) IV PRN ×6 (03:30→19:09)
[2017-03-19 03:53] VITALS: BP 111/68; PULSE 87; TEMP 36.9; O2SAT 93
[2017-03-19 03:53] LABS: PARTIAL THROMBOPLASTIN RATIO 2.1
[2017-03-19 07:27] VITALS: BP 111/60; PULSE 77; TEMP 36.9; O2SAT 100
[2017-03-19 08:05] LABS: MEAN CELL VOLUME 93.1 fL (80-100); MEAN PLATELET VOLUME 9.1 fL (7.4-10.4); PLATELET COUNT 321 K/uL (130-400)
[2017-03-19 08:13] LABS: INR 1.1 (0.9-1.1); PARTIAL THROMBOPLASTIN RATIO 1.7; PROTHROMBIN TIME (PATIENT) 11.3 SECONDS (9.0-12.0)
[2017-03-19] MEDS: MAGNESIUM OXIDE 400 MG TAB PO SCH (08:19)
[2017-03-19] MEDS: METOPROLOL TARTRATE 50 MG TAB PO SCH (08:19)
[2017-03-19] MEDS: AMIODARONE 200 MG TAB PO SCH (08:20)
[2017-03-19] MEDS: ATORVASTATIN 20 MG TAB PO SCH (08:20)
[2017-03-19] MEDS: CYANOCOBALAMIN 500 MCG TAB (VIT B-12) PO SCH (08:20)
[2017-03-19] MEDS: DOCUSATE SODIUM 100 MG CAP PO SCH ×2 (08:20→20:21)
[2017-03-19] MEDS: POLYETHYLENE (MIRALAX) 17 GM PACK PO SCH (08:21)
[2017-03-19 08:27] LABS: MEAN CORPUSCULAR HGB CONC 31.1 g/dl (32-36)
[2017-03-19 08:36] LABS: ANISOCYTOSIS PRESENT; BASO % 0.5 %; BASO ABS # 0.07 K/uL (0-0.2); COMPLETE YES; EOS % 3.7 %; HYPERSEGMENTED POLYS 1+; IG% 6.6 %; MONO % 12.7 %; NEUT % 66.5 %; POLYCHROMASIA 1+
[2017-03-19 08:38] LABS: BUN/CREATININE RATIO 25.4 (10-20); CALCIUM 8.7 mg/dl (8.5-10.1); CREATININE 0.79 mg/dl (0.60-1.20); POTASSIUM 4.9 mmol/L (3.5-5.1)
[2017-03-19] MEDS ORDERED: NURSING VERBAL MED ORDER ONE (10:45)
[2017-03-19] MEDS: LEVOTHYROXINE 75 MCG TAB PO SCH (10:46)
[2017-03-19] MEDS ORDERED: HEPARIN IV BOLUS 2,000 UNIT in SYRINGE 0 ML IV ONE (11:00)
--- NOTE | 2017-03-19 13:37 | Wound Progress Note: Inpatient ---
Wound Progress Note Date of Service Mar 19, 2017. Subjective Pt evaluation today including: conversation w/ patient, physical exam Patient seen today for follow-up of a traumatic hematoma to the right lower extremity. Patient states she has no pain at the current time. Patient denies any fever chills or night sweats. Patient states she is having difficulty with ambulation. Patient denies any other systemic complaints at this time. Objective Vital Signs Date Time Temp Pulse Resp B/P (MAP) Pulse Ox O2 Delivery O2 Flow Rate FiO2 03/19/17 08:08 Room Air 03/19/17 07:27 36.9 77 16 111/60 (77) 100 Room Air 03/19/17 03:53 36.9 87 16 111/68 (82) 93 Room Air 03/19/17 03:00 Room Air 03/19/17 00:00 Room Air 03/18/17 23:47 36.9 73 16 103/58 (73) 93 Room Air 03/18/17 16:00 Room Air 03/18/17 15:54 36.9 71 18 110/61 (77) 94 Physical Exam Notes: Patients vital signs were reviewed and found to be unremarkable patient is afebrile. The site today shows no evidence of any periwound erythema. There is some periwound maceration present. Some clot is still present in the base occupying approximately 35% of the area. There is no active drainage or specific odor noted. No significant pain to palpation in the periphery. No fluctuance noted. Laboratory Results Last 24 Hours Test 03/18/17 15:35 03/18/17 19:40 03/19/17 02:37 03/19/17 07:49 Prothrombin Time 11.6 SECONDS 11.3 SECONDS Prothromb Time International Ratio 1.1 1.1 Activated Partial Thromboplast Time 38.0 SECONDS 54.8 SECONDS 42.9 SECONDS Partial Thromboplastin Ratio 1.5 2.1 1.7 White Blood Count 15.00 K/uL Red Blood Count 2.90 M/uL Hemoglobin 8.4 g/dL Hematocrit 27.0 % Mean Corpuscular Volume 93.1 fL Mean Corpuscular Hemoglobin 29.0 pg Mean Corpuscular Hemoglobin Concent 31.1 g/dl Platelet Count 321 K/uL Mean Platelet Volume 9.1 fL Neutrophils (%) (Auto) 66.5 % Lymphocytes (%) (Auto) 10.0 % Monocytes (%) (Auto) 12.7 % Eosinophils (%) (Auto) 3.7 % Basophils (%) (Auto) 0.5 % Neutrophils # (Auto) 9.99 K/uL Lymphocytes # (Auto) 1.50 K/uL Monocytes # (Auto) 1.90 K/uL Eosinophils # (Auto) 0.55 K/uL Basophils # (Auto) 0.07 K/uL RDW Standard Deviation 59.1 fL RDW Coefficient of Variation 17.9 % Immature Granulocyte % (Auto) 6.6 % Immature Granulocyte # (Auto) 0.99 K/uL Hypersegmented Polys 1+ Polychromasia 1+ Anisocytosis PRESENT Sodium Level 133 mmol/L Potassium Level 4.9 mmol/L Chloride Level 101 mmol/L Carbon Dioxide Level 27 mmol/L Anion Gap 5.0 mmol/L Blood Urea Nitrogen 20 mg/dl Creatinine 0.79 mg/dl Est Creatinine Clear Calc Drug Dose 49.7 ml/min Estimated GFR () 82.5 Estimated GFR (Non- 71.2 BUN/Creatinine Ratio 25.4 Random Glucose 94 mg/dl Calcium Level 8.7 mg/dl Assessment and Plan Assessment: Large hematoma right lower extremity Plan: At this time further evacuation of existing hematoma was required. With patient's permission the clot was blunt dissected and removed. No active bleeding was noted. The site was then subsequently dressed with a regaining wound VAC black foam 125 mm of negative pressure 2 hours on 10 minutes with instillation of saline. The site will be reevaluated in 72 hours with VAC change. Patient tolerated the procedure well. Total time of the procedure was15 minutes. Evacuation of hematoma right lower extremity
[2017-03-19] MEDS ORDERED: SULFAMETHOXAZOLE/TRIMETHOPRIM DS 800/160MG TAB PO ONE (13:48)
--- NOTE | 2017-03-19 13:57 | Family Medicine Progress Note ---
Progress Note Date of Service Mar 19, 2017. 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 w/ technology consultant, review of inpatient medication list Pain: none at rest, 8/10 with ambulation PO Intake: good Voiding: lynch catheter in place Patient says that right hip pain is improving She says it is very difficult to ambulate, but is easier than yesterday She denies any further bleeding after starting warfarin Constitutional: No fever, No chills, No sweats Respiratory: No cough, No sputum, No shortness of breath Cardiovascular: No chest pain, No edema, No palpitations Abdomen: + constipation, No pain, No nausea, No vomiting, No diarrhea Musculoskeletal: + joint pain, + muscle pain Heme: No abnormal bleeding/bruising Medications Current Inpatient Medications Medications (Trade) Dose Ordered Sig/Khris Route Start Time Stop Time Status Last Admin Dose Admin Acetaminophen (Tylenol Tab) 650 mg Q4H PRN PO 03/12/17 22:15 04/11/17 22:14 03/15/17 07:50 650 MG Amiodarone HCl (Cordarone Tab) 200 mg DAILY PO 03/13/17 09:00 04/12/17 08:59 03/19/17 08:20 200 MG Atorvastatin Calcium (Lipitor Tab) 20 mg DAILY PO 03/13/17 09:00 04/12/17 08:59 03/19/17 08:20 20 MG Cyanocobalamin (Vitamin B-12 Tab) 1,000 mcg DAILY PO 03/13/17 09:00 04/12/17 08:59 03/19/17 08:20 1,000 MCG Levothyroxine Sodium (Synthroid Tab) 75 mcg DAILYBB PO 03/13/17 06:00 04/12/17 05:59 03/19/17 10:46 75 MCG Acetaminophen 100 ml @ 400 mls/hr Q8H PRN IV 03/12/17 22:15 04/11/17 22:14 Tramadol HCl (Ultram Tab) 50 mg Q4H PRN PO 03/15/17 02:00 04/14/17 01:59 03/19/17 01:37 50 MG Heparin Sodium (Porcine) 93477 unit/Dextrose 500 ml @ 16 mls/hr Q24H PRN IV 03/15/17 14:00 04/14/17 13:59 Future hold 03/19/17 11:24 16 MLS/HR Metoprolol Tartrate (Lopressor Tab) 50 mg DAILY PO 03/16/17 09:00 04/15/17 08:59 03/19/17 08:19 50 MG Docusate Sodium (coLACE CAP) 100 mg BID PO 03/16/17 21:00 04/15/17 20:59 03/19/17 08:20 100 MG Polyethylene (Miralax Powder Packet) 17 gm DAILY PO 03/18/17 09:00 04/17/17 08:59 03/19/17 08:21 17 GM Magnesium Oxide (Mag-Ox Tab) 400 mg DAILY PO 03/19/17 09:00 04/18/17 08:59 03/19/17 08:19 400 MG Warfarin Sodium (Coumadin Tab) 3 mg [id number]@1600 PO 03/18/17 16:00 04/17/17 15:59 03/18/17 16:11 3 MG Polyethylene (Miralax Powder Packet) 17 gm NOW ONCE PO 03/19/17 14:00 03/19/17 14:01 Objective Vital Signs Date Time Temp Pulse Resp B/P (MAP) Pulse Ox O2 Delivery O2 Flow Rate FiO2 03/19/17 08:08 Room Air 03/19/17 07:27 36.9 77 16 111/60 (77) 100 Room Air 03/19/17 03:53 36.9 87 16 111/68 (82) 93 Room Air 03/19/17 03:00 Room Air 03/19/17 00:00 Room Air 03/18/17 23:47 36.9 73 16 103/58 (73) 93 Room Air 03/18/17 16:00 Room Air 03/18/17 15:54 36.9 71 18 110/61 (77) 94 Physical Exam Notes: General Appearance: WD/WN, no apparent distress, + thin, + pertinent finding ( very thin hair and patient appears frail) Neck: supple, no JVD, no carotid bruits, trachea midline Respiratory/Chest: no respiratory distress, no accessory muscle use, lungs clear Cardiovascular: regular rate, rhythm, no edema, RUSB 2/6 murmur Abdomen: normal bowel sounds, non tender, soft Neurologic/Psychiatric: alert, normal mood/affect, oriented x 3 Skin: + pertinent finding (large bruise overlying right hip which extends up to lumbar spine and down to mid thigh, much improved compared to yesterday. wound vac in place with no drainage visible Laboratory Results Results Past 24 Hours Test 03/18/17 15:35 03/18/17 19:40 03/19/17 02:37 03/19/17 07:49 Range/Units Prothrombin Time 11.6 11.3 9.0-12.0 SECONDS Prothromb Time International Ratio 1.1 1.1 0.9-1.1 Activated Partial Thromboplast Time 38.0 54.8 42.9 21.0-31.0 SECONDS Partial Thromboplastin Ratio 1.5 2.1 1.7 White Blood Count 15.00 4.8-10.8 K/uL Red Blood Count 2.90 4.2-5.4 M/uL Hemoglobin 8.4 12.0-16.0 g/dL Hematocrit 27.0 37-47 % Mean Corpuscular Volume 93.1 80-100 fL Mean Corpuscular Hemoglobin 29.0 25-34 pg Mean Corpuscular Hemoglobin Concent 31.1 32-36 g/dl Platelet Count 321 130-400 K/uL Mean Platelet Volume 9.1 7.4-10.4 fL Neutrophils (%) (Auto) 66.5 % Lymphocytes (%) (Auto) 10.0 % Monocytes (%) (Auto) 12.7 % Eosinophils (%) (Auto) 3.7 % Basophils (%) (Auto) 0.5 % Neutrophils # (Auto) 9.99 1.4-6.5 K/uL Lymphocytes # (Auto) 1.50 1.2-3.4 K/uL Monocytes # (Auto) 1.90 0.11-0.59 K/uL Eosinophils # (Auto) 0.55 0-0.5 K/uL Basophils # (Auto) 0.07 0-0.2 K/uL RDW Standard Deviation 59.1 36.4-46.3 fL RDW Coefficient of Variation 17.9 11.5-14.5 % Immature Granulocyte % (Auto) 6.6 % Immature Granulocyte # (Auto) 0.99 0.00-0.02 K/uL Hypersegmented Polys 1+ Polychromasia 1+ Anisocytosis PRESENT Sodium Level 133 136-145 mmol/L Potassium Level 4.9 3.5-5.1 mmol/L Chloride Level 101 98-107 mmol/L Carbon Dioxide Level 27 21-32 mmol/L Anion Gap 5.0 3-11 mmol/L Blood Urea Nitrogen 20 7-18 mg/dl Creatinine 0.79 0.60-1.20 mg/dl Est Creatinine Clear Calc Drug Dose 49.7 ml/min Estimated GFR () 82.5 Estimated GFR (Non- 71.2 BUN/Creatinine Ratio 25.4 10-20 Random Glucose 94 70-99 mg/dl Calcium Level 8.7 8.5-10.1 mg/dl Assessment and Plan 77 year old female who presented to the emergency room with complaints of worsening weakness to her legs. Found to be quite anemic with Hgb 5.7 and Hct 17.2 with INR of 6.7. Received 3 units of PRBC and found to have large hematoma over right hip. Has had wound vac placed 3 days ago and continues to have drainage. She had staph grow in the wound culture which is sensitive to bactrim. According to wound care notes patient will need to be here for another 72 hours of wound drainage Anemia hgb 8.0 this morning and stable received 3 units of PRBC Supratherapeutic INR coumadin and heparin restarted, will monitor for bleeding follows with Dr. Canela for afib INR 1.1 today Afib currently NSR continue amiodarone continue metoprolol and monitor HR restart coumadin at 3mg daily INR 1.1, on heparin drip follow INR Elevated WCC likely from procedure done by Dr. Delarosa has new findings of rhonchi at RLL therefore will order CXR, add incentive spirometer and flutter valve culture from leg wound grew staph aureus therefore will treat with bactrim for 7 days R hip ecchymosis 11 cm hematoma lateral to right hip and proximal femur Dr. Delarosa placed wound vac which is draining well Constipation start bowel regimen with colace daily and miralax no ab pain, nausea, vomiting extra dose of miralax given today PEYTON resolved with IV fluids current creatinine .79 Hyperthyroidism Synthroid 75 mcg DVT Restart Coumadin SCDs Code Status Full Resuscitation Disposition Lives at home currently [facility] referral made, patient will plan to go their next week as will need continued wound vac suction in hospital Continued [facility] stay due to: ambulation difficulties, multiple IV medications needed Discharge planning: rehab hospital Assessment/Plan Resident Physician Supervision Note: I was present with Dr. Neely during the history and exam. I discussed the case with the resident and agree with the findings and plan as documented in the note. Any exceptions or clarifications are listed here. 77 y/o female h/o atrial fibrillation on coumadin presents with significant R hip hematoma s/p fall w/ significant anemia s/p 3 UPRBC. Right hip pain is minimally improved. Vac in place but decreased draining. Ecchymosis improving, still dependant but fading. Trace b/l distal edema. CTAB, S1/S2 nl RRR. Re: Right hip hematoma w/ vac, re-debridement with Dr. Delarosa requiring persistent inpatient vac management. Deep culture w/ infection as noted so started abx and monitor. Tolerating restarted AC well, will trend INR while inpatient.
[2017-03-19] MEDS ORDERED: POLYETHYLENE (MIRALAX) 17 GM PACK PO ONE (14:00)
[2017-03-19 15:06] VITALS: BP 113/66; PULSE 69; TEMP 37.2; O2SAT 92
[2017-03-19] MEDS: WARFARIN SOD 3 MG TAB PO SCH (16:53)
[2017-03-19] MEDS: CEPHALEXIN MONOHYDRATE 500 MG CAP PO SCH ×2 (16:54→20:21)
[2017-03-19 18:28] LABS: PARTIAL THROMBOPLASTIN RATIO 1.6
[2017-03-19] MEDS ORDERED: HEPARIN IV BOLUS 4,000 UNIT in SYRINGE 0 ML IV ONE (19:00)
[2017-03-19] MEDS ORDERED: SULFAMETHOXAZOLE/TRIMETHOPRIM DS 800/160MG TAB PO SCH (21:00)
[2017-03-20] VITALS: O2SAT 92
[2017-03-20 00:42] VITALS: BP 107/52; PULSE 60; TEMP 37.1; O2SAT 96
[2017-03-20 01:21] LABS: PARTIAL THROMBOPLASTIN RATIO 3.1
[2017-03-20] MEDS: HEPARIN 25000 UNIT/ D5W 500 ML (PHARMACY PREPARED) IV PRN ×4 (01:38→11:03)
[2017-03-20] MEDS: LEVOTHYROXINE 75 MCG TAB PO SCH (06:19)
[2017-03-20] MEDS: CYANOCOBALAMIN 500 MCG TAB (VIT B-12) PO SCH (07:30)
[2017-03-20] MEDS: POLYETHYLENE (MIRALAX) 17 GM PACK PO SCH (07:30)
[2017-03-20] MEDS: AMIODARONE 200 MG TAB PO SCH (07:31)
[2017-03-20] MEDS: ATORVASTATIN 20 MG TAB PO SCH (07:31)
[2017-03-20] MEDS: METOPROLOL TARTRATE 50 MG TAB PO SCH (07:31)
[2017-03-20] MEDS: CEPHALEXIN MONOHYDRATE 500 MG CAP PO SCH (07:31)
[2017-03-20] MEDS: MAGNESIUM OXIDE 400 MG TAB PO SCH (07:31)
[2017-03-20] MEDS: DOCUSATE SODIUM 100 MG CAP PO SCH ×2 (07:31→21:00)
[2017-03-20 07:34] VITALS: BP 130/68; PULSE 77; TEMP 36.4; O2SAT 98
[2017-03-20 07:58] LABS: HEMATOCRIT 27.3 % (37-47); MEAN CELL VOLUME 92.5 fL (80-100); MEAN CORPUSCULAR HEMOGLOBIN 28.8 pg (25-34); MEAN CORPUSCULAR HGB CONC 31.1 g/dl (32-36); MEAN PLATELET VOLUME 9.2 fL (7.4-10.4); PLATELET COUNT 376 K/uL (130-400); RED BLOOD COUNT 2.95 M/uL (4.2-5.4); WHITE BLOOD COUNT 17.26 K/uL (4.8-10.8)
[2017-03-20 08:16] LABS: PROTHROMBIN TIME (PATIENT) 11.2 SECONDS (9.0-12.0)
[2017-03-20 08:51] LABS: PARTIAL THROMBOPLASTIN RATIO 1.8
[2017-03-20] MEDS ORDERED: HEPARIN IV BOLUS 2,000 UNIT in SYRINGE 0 ML IV ONE (10:45)
[2017-03-20] MEDS ORDERED: DOXYCYCLINE HYCLATE 100 MG CAP PO STA (10:56)
[2017-03-20] MEDS ORDERED: TRIMETHOPRIM/POLYMYXIN B OP ONE (11:45)
[2017-03-20 15:11] VITALS: BP 109/60; PULSE 46; TEMP 37.7; O2SAT 97
[2017-03-20] MEDS: WARFARIN SOD 3 MG TAB PO SCH (15:44)
--- NOTE | 2017-03-20 16:09 | Family Medicine Progress Note ---
Progress Note Date of Service Mar 20, 2017. Subjective Pt evaluation today including: conversation w/ patient, physical exam, chart review, lab review The patient was seen and examined at bedside. No acute overnight events. Patient is resting comfortably in bed. Wound vac in place draining blood. Denies having any pain. Eating and urinating well. Plan of care was described to the patient and all questions were answered. Constitutional: No fever, No chills, No sweats Eyes: No eye pain Respiratory: No cough, No sputum, No wheezing, No shortness of breath Cardiovascular: No chest pain Abdomen: No pain, No nausea, No vomiting, No diarrhea, No constipation Musculoskeletal: No joint pain Female : No dysuria Endo: No fatigue, No excessive thirst Skin: No rash Objective Physical Exam Notes: General Appearance: WD/WN, no apparent distress, + thin, + pertinent finding ( thin hair and patient appears frail) Neck: supple, no JVD, no carotid bruits, trachea midline Eyes: Injected right conjunctiva with purulence at lower eyelid margin. Left eye grossly normal. Respiratory/Chest: no respiratory distress, no accessory muscle use, lungs clear Cardiovascular: regular rate, rhythm, no edema, systolic 2/6 murmur Abdomen: normal bowel sounds, non tender, soft Neurologic/Psychiatric: alert, normal mood/affect, oriented x 3 Skin: + pertinent finding (large bruise overlying right hip which extends up to lumbar spine and down to mid thigh, wound vac in place with visible bloody drainage). Assessment and Plan 77F who presented to the emergency room with complaints of worsening weakness to her legs. Found to be quite anemic with Hgb 5.7 and Hct 17.2 with INR of 6.7. Received 3 units of PRBC and found to have large hematoma over right hip. Has had wound vac placed by Dr. Delarosa to negative pressure that continues to have drainage. She had staph grow in the wound culture which is sensitive to bactrim, clinda, dapto, oxacillin, vanco and tetracycline and resistant to erythromycin. Pt was started on Cephalosporin that was changed to Doxy (Day #1) . According to wound care notes patient will need to be here until Wednesday for a total of 72hrs of drainage to suction. Anemia * Hgb 8.0-->8.5, stable * S/p 3 units of PRBC Afib * currently NSR * continue amiodarone * continue metoprolol and monitor HR * INR 1.0 today * On Hep Drip. * C/w Coumadin 3mg daily. Will give an extra 2mg dose today. R. Eye Conjunctivitis * Polytrim Ophthalmic drops, 1 drop BID affected eye. Elevated WCC * culture from leg wound grew staph aureus therefore will treat with bactrim for 7 days. * Was on Cephalospoin, changed today to Doxycycline 100mg BID R hip ecchymosis * 11 cm hematoma lateral to right hip and proximal femur * Dr. Delarosa placed wound vac to suction and it is. Constipation * start bowel regimen with colace daily and miralax * no ab pain, nausea, vomiting PEYTON (resolved) * resolved with IV fluids Hyperthyroidism * c/w Synthroid 75 mcg DVT * AC as above. SS: * Lives at home currently * [facility] referral made, patient will plan to go their next week as will need continued wound vac suction in hospital Dispo: Med Surg FULL CODE Resident Involvement: Resident Care Provided Care Provided: Adult Hospital Medicine Assessment/Plan Resident Physician Supervision Note: I was present with Dr. Singh during the history and exam. I discussed the case with the resident and agree with the findings and plan as documented in the note. Any exceptions or clarifications are listed here. 77 y/o female h/o atrial fibrillation on coumadin presents with significant R hip hematoma s/p fall w/ significant anemia s/p 3 UPRBC. Right hip pain is improved from yesterday per pt. Vac in place and draining sanguinous. Ecchymosis improving, still dependant but fading. Trace b/l distal edema. CTAB, S1/S2 nl RRR. Re: Right hip hematoma w/ vac s/p re-debridement with Dr. Delarosa requiring persistent inpatient vac management. Deep culture w/ infection w/ C/S for tetracycline sensitivity, will txf to Doxycycline for coverage. Tolerating restarted AC well, will trend INR while inpatient.
[2017-03-20 16:50] LABS: PARTIAL THROMBOPLASTIN RATIO 2.1
[2017-03-20] MEDS ORDERED: WARFARIN SOD 2 MG TAB PO ONE (19:30)
[2017-03-20] MEDS ORDERED: ERYTHROMYCIN OP OINT 1 GM PKT OP SCH (21:00)
[2017-03-20] MEDS: TRIMETHOPRIM/POLYMYXIN B OP SCH (21:22)
[2017-03-20] MEDS: DOXYCYCLINE HYCLATE 100 MG CAP PO SCH (21:23)
[2017-03-20] MEDS ORDERED: FUROSEMIDE 20 MG TAB PO ONE (22:15)
[2017-03-20] MEDS: TRAMADOL HCL 50 MG TAB PO PRN (23:47)
[2017-03-21] VITALS: O2SAT 92
[2017-03-21 00:29] VITALS: BP 123/64; PULSE 78; TEMP 36.5; O2SAT 98
[2017-03-21] MEDS: LEVOTHYROXINE 75 MCG TAB PO SCH (05:58)
--- NOTE | 2017-03-21 07:02 | Family Medicine Progress Note ---
Progress Note Date of Service Mar 21, 2017. Subjective Pt evaluation today including: conversation w/ patient, physical exam, chart review, lab review Patient is complaining that she is weak and that her knees buckle whenever she is standing on her own. She is undergoing PT daily and complains that she has been in bed a long time. Ex was in the room during noon rounds. Pt's mood appeared much better than in the morning when she complained that nobody came to visit her. Night team restarted the patients Lasix 20mg daily because patient was edematous. Patient's hemoglobin dipped from 8.5 to 7.6. Plan of care was described to the patient and all questions were answered. Constitutional: No fever, No chills, No sweats Respiratory: No cough, No sputum, No wheezing, No shortness of breath Cardiovascular: No chest pain Abdomen: No pain, No nausea, No vomiting, No diarrhea Musculoskeletal: + problem reported (weakness) Female : No dysuria, No hematuria Neurologic: No memory loss Skin: No rash Objective Physical Exam General Appearance: WD/WN, no apparent distress, + pertinent finding (thinning hair) Eyes: normal inspection, PERRL Respiratory/Chest: chest non-tender, lungs clear, normal breath sounds, no respiratory distress, no accessory muscle use Cardiovascular: regular rate, rhythm, no edema, no gallop, no JVD, no murmur Abdomen: normal bowel sounds, non tender, soft, no organomegaly, no pulsatile mass, + pertinent finding ( anus patent, good sphincter tone, no signs of bleeding around the anus) Extremities: non-tender, + pedal edema (2+ pedal edema over the LE bilaterally) Neurologic/Psychiatric: drainman II-XII nml as tested, no motor/sensory deficits, alert, normal mood/affect, oriented x 3 Skin: + pertinent finding (area of excoriation ovrer the left buttock, wound vac intake and draining dark blood.) Assessment and Plan 77F who presented to ER with complaints of worsening weakness to her legs. Found to be quite anemic with Hgb 5.7 and Hct 17.2 with INR of 6.7. Received 3 units of PRBC and found to have large hematoma over right hip. Has had wound vac placed by Dr. Delarosa to negative pressure that continues to have drainage. She had staph grow in the wound culture which is sensitive to bactrim, clinda, dapto, oxacillin, vanco and tetracycline and resistant to erythromycin. Pt was started on Cephalosporin that was changed to Doxy (Day #2). According to wound care notes patient will need to be here until Wednesday for a total of 72hrs of drainage to suction. Hemoglobin was downtrending from 8.5-->7.6, FOBT was negative (good sample), patient denies hematochezia. No signs of external or internal bleeding aside from Wound Vac. Anemia * Hgb 8.0-->8.5-->7.6, stable * S/p 3 units of PRBC * Wound Vac draining about 25ccs per day. Does not account for this. * FOBT Negative. * Continue to monitor for signs of bleeding. Afib * Normal sinus Rhythm. * c/w amiodarone * c/w metoprolol and monitor HR * INR 1.1 today, extra 2mg of Coumadin for a TDD of 5mg. * On Hep Drip. * C/w Coumadin 3mg daily. R. Eye Conjunctivitis * Polytrim Ophthalmic drops, 1 drop BID affected eye. Elevated WCC * culture from leg wound grew staph aureus therefore will treat with bactrim for 7 days. * switched to Doxycycline 100mg BID (Day #2) R hip ecchymosis * 11 cm hematoma lateral to right hip and proximal femur * Dr. Delarosa placed wound vac to suction. Cannot DC on wound vac to suction. Must be regular Wound Vac, see SS section below. Constipation * Bowel regimen with colace daily and miralax * No ab pain, nausea, vomiting LE Edema * Pt was restarted on her home 20mg Lasix daily that was held due to PEYTON. * Continue to monitor Lytes. PEYTON (resolved) * Resolved with IV fluids Hyperthyroidism * c/w Synthroid 75 mcg DVT * Hep Drip and Coumadin as above. SS: * Lives at home currently * They cannot apply for insurance auth until irrigating wound vac is changed to a regular wound vac. * Patient will need insurance auth and updated therapy evals prior to discharge. Dispo: Med Surg FULL CODE Resident Involvement: Resident Care Provided Care Provided: Adult [facility] Assessment/Plan Resident Physician Supervision Note: I was present with Dr. Singh during the history and exam. I discussed the case with the resident and agree with the findings and plan as documented in the note. Any exceptions or clarifications are listed here. 77 y/o female h/o atrial fibrillation on coumadin presents with significant R hip hematoma s/p fall w/ significant anemia s/p 3 UPRBC. Right hip pain is improved, though considerable weakness persists and pt is concerned for rehab potential. Reviewed course of events resulting in her fall and encouraged participation in all facets of rehab for optimal outcome. Vac in place but decreased draining. Ecchymosis improving, still dependant but fading. Trace b/l distal edema. CTAB, S1/S2 nl RRR. Re: Right hip hematoma w/ vac, re-debridement with Dr. Delarosa requiring persistent inpatient vac management. in hgb today to 7.5 with negative FOBT and continued vac drainage. Will continue to monitor q12 w/ txf at 7 if needed or with symptoms. B/L LE edema likely from dependent positioning w/ lasix. Deep culture w/ infection as noted s/p redebridement w/ doxycycline. Tolerating restarted AC well, will trend INR while inpatient.
[2017-03-21 07:26] LABS: BASO % 0.4 %; BASO ABS # 0.05 K/uL (0-0.2); EOS % 1.8 %; HEMATOCRIT 24.2 % (37-47); LYMPH % 12.4 %; LYMPH ABS # 1.72 K/uL (1.2-3.4); MEAN CORPUSCULAR HEMOGLOBIN 28.6 pg (25-34); MEAN CORPUSCULAR HGB CONC 31.4 g/dl (32-36); MEAN PLATELET VOLUME 9.2 fL (7.4-10.4); MONO % 14.5 %; NEUT % 66.9 %; PLATELET COUNT 347 K/uL (130-400); RED BLOOD COUNT 2.66 M/uL (4.2-5.4); WHITE BLOOD COUNT 13.87 K/uL (4.8-10.8)
[2017-03-21 07:42] VITALS: BP 109/55; PULSE 64; TEMP 36.9; O2SAT 92
[2017-03-21 07:47] LABS: ANISOCYTOSIS PRESENT; COMPLETE YES; VACUOLIZATION 1+
[2017-03-21 08:02] LABS: BUN/CREATININE RATIO 22.2 (10-20); CALCIUM 8.2 mg/dl (8.5-10.1); CREATININE 0.89 mg/dl (0.60-1.20); POTASSIUM 4.5 mmol/L (3.5-5.1)
[2017-03-21 08:06] LABS: INR 1.1 (0.9-1.1); PARTIAL THROMBOPLASTIN RATIO 1.8; PROTHROMBIN TIME (PATIENT) 11.7 SECONDS (9.0-12.0)
[2017-03-21] MEDS: POLYETHYLENE (MIRALAX) 17 GM PACK PO SCH (08:58)
[2017-03-21] MEDS: DOCUSATE SODIUM 100 MG CAP PO SCH ×2 (08:58→20:48)
[2017-03-21] MEDS: TRIMETHOPRIM/POLYMYXIN B OP SCH ×2 (09:00→20:48)
[2017-03-21] MEDS: MAGNESIUM OXIDE 400 MG TAB PO SCH (09:00)
[2017-03-21] MEDS: CYANOCOBALAMIN 500 MCG TAB (VIT B-12) PO SCH (09:00)
[2017-03-21] MEDS: DOXYCYCLINE HYCLATE 100 MG CAP PO SCH ×2 (09:00→20:48)
[2017-03-21] MEDS: ATORVASTATIN 20 MG TAB PO SCH (09:01)
[2017-03-21] MEDS: AMIODARONE 200 MG TAB PO SCH (09:01)
[2017-03-21] MEDS: METOPROLOL TARTRATE 50 MG TAB PO SCH (09:01)
[2017-03-21] MEDS: FUROSEMIDE 20 MG TAB PO SCH (09:01)
[2017-03-21] MEDS: HEPARIN 25000 UNIT/ D5W 500 ML (PHARMACY PREPARED) IV PRN ×2 (09:02)
[2017-03-21] MEDS ORDERED: POLYETHYLENE (MIRALAX) 17 GM PACK PO STA (14:21)
[2017-03-21] MEDS ORDERED: DOCUSATE SODIUM 100 MG/10 ML UDC PO STA (14:21)
[2017-03-21 14:52] LABS: HEMATOCRIT 23.7 % (37-47)
[2017-03-21 15:12] VITALS: BP 88/48; PULSE 68; TEMP 37.8; O2SAT 95
[2017-03-21] MEDS: WARFARIN SOD 3 MG TAB PO SCH (15:42)
[2017-03-21] MEDS ORDERED: WARFARIN SOD 2 MG TAB PO SCH (16:00)
[2017-03-22] VITALS (10 sets, daily range): BP systolic 100–118; BP diastolic 49–66; PULSE 60–72; TEMP 36.5–37.2; O2SAT 92–96
[2017-03-22] MEDS ORDERED: ALUMINUM/MAGNESIUM SUSP 30 ML UDC PO STA (02:24)
[2017-03-22] MEDS: LEVOTHYROXINE 75 MCG TAB PO SCH (06:01)
[2017-03-22 06:50] LABS: BASO % 0.3 %; BASO ABS # 0.03 K/uL (0-0.2); EOS % 1.7 %; HEMATOCRIT 22.3 % (37-47); IG% 2.3 %; LYMPH % 12.1 %; LYMPH ABS # 1.41 K/uL (1.2-3.4); MEAN CELL VOLUME 92.5 fL (80-100); MEAN CORPUSCULAR HGB CONC 31.4 g/dl (32-36); MEAN PLATELET VOLUME 8.7 fL (7.4-10.4); MONO % 13.7 %; NEUT % 69.9 %; PLATELET COUNT 348 K/uL (130-400); RED BLOOD COUNT 2.41 M/uL (4.2-5.4); WHITE BLOOD COUNT 11.66 K/uL (4.8-10.8)
[2017-03-22 07:21] LABS: BUN/CREATININE RATIO 19.4 (10-20); CALCIUM 7.9 mg/dl (8.5-10.1); CREATININE 0.87 mg/dl (0.60-1.20); POTASSIUM 4.4 mmol/L (3.5-5.1)
[2017-03-22 07:27] LABS: INR 1.2 (0.9-1.1); PARTIAL THROMBOPLASTIN RATIO 1.2; PROTHROMBIN TIME (PATIENT) 12.7 SECONDS (9.0-12.0)
[2017-03-22 07:47] LABS: COMPLETE YES; POLYCHROMASIA 1+
[2017-03-22] MEDS: POLYETHYLENE (MIRALAX) 17 GM PACK PO SCH (08:48)
[2017-03-22] MEDS: DOCUSATE SODIUM 100 MG CAP PO SCH ×2 (08:49→21:08)
[2017-03-22] MEDS: MAGNESIUM OXIDE 400 MG TAB PO SCH (08:49)
[2017-03-22] MEDS: METOPROLOL TARTRATE 50 MG TAB PO SCH (08:49)
[2017-03-22] MEDS: CYANOCOBALAMIN 500 MCG TAB (VIT B-12) PO SCH (08:49)
[2017-03-22] MEDS: AMIODARONE 200 MG TAB PO SCH (08:49)
[2017-03-22] MEDS: DOXYCYCLINE HYCLATE 100 MG CAP PO SCH ×2 (08:50→21:08)
[2017-03-22] MEDS: TRIMETHOPRIM/POLYMYXIN B OP SCH ×2 (08:50→21:08)
[2017-03-22] MEDS: ATORVASTATIN 20 MG TAB PO SCH (08:50)
[2017-03-22] MEDS: FUROSEMIDE 20 MG TAB PO SCH (08:50)
[2017-03-22] MEDS: TRAMADOL HCL 50 MG TAB PO PRN (11:13)
[2017-03-22] MEDS: ACETAMINOPHEN IV 100 ML IV PRN (13:03)
--- NOTE | 2017-03-22 16:00 | Family Medicine Progress Note ---
Progress Note Date of Service Mar 22, 2017. 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 w/ strategy planning consultant, review of inpatient medication list Pain: minimal PO Intake: good Voiding: lynch catheter in place Patient has been feeling sad that nobody from Dr. Delarosa's team came to see her over the weekend She denies any ongoing bleeding or bruising She doesn't feel tired Constitutional: No fever, No chills, No sweats Respiratory: No cough, No sputum, No wheezing, No shortness of breath Cardiovascular: No chest pain, No edema, No palpitations Abdomen: No pain, No nausea, No vomiting, No diarrhea Musculoskeletal: + joint pain, + muscle pain, No calf pain Female : No dysuria, No hematuria, No incontinence Psychiatric: + depression symptoms Heme: No abnormal bleeding/bruising Medications Current Inpatient Medications Medications (Trade) Dose Ordered Sig/Khris Route Start Time Stop Time Status Last Admin Dose Admin Acetaminophen (Tylenol Tab) 650 mg Q4H PRN PO 03/12/17 22:15 04/11/17 22:14 03/15/17 07:50 650 MG Amiodarone HCl (Cordarone Tab) 200 mg DAILY PO 03/13/17 09:00 04/12/17 08:59 03/22/17 08:49 200 MG Atorvastatin Calcium (Lipitor Tab) 20 mg DAILY PO 03/13/17 09:00 04/12/17 08:59 03/22/17 08:50 20 MG Cyanocobalamin (Vitamin B-12 Tab) 1,000 mcg DAILY PO 03/13/17 09:00 04/12/17 08:59 03/22/17 08:49 1,000 MCG Levothyroxine Sodium (Synthroid Tab) 75 mcg DAILYBB PO 03/13/17 06:00 04/12/17 05:59 03/22/17 06:01 75 MCG Acetaminophen 100 ml @ 400 mls/hr Q8H PRN IV 03/12/17 22:15 04/11/17 22:14 03/22/17 13:03 400 MLS/HR Tramadol HCl (Ultram Tab) 50 mg Q4H PRN PO 03/15/17 02:00 04/14/17 01:59 03/22/17 11:13 50 MG Metoprolol Tartrate (Lopressor Tab) 50 mg DAILY PO 03/16/17 09:00 04/15/17 08:59 03/22/17 08:49 50 MG Docusate Sodium (coLACE CAP) 100 mg BID PO 03/16/17 21:00 04/15/17 20:59 03/22/17 08:49 100 MG Polyethylene (Miralax Powder Packet) 17 gm DAILY PO 03/18/17 09:00 04/17/17 08:59 03/20/17 07:30 17 GM Magnesium Oxide (Mag-Ox Tab) 400 mg DAILY PO 03/19/17 09:00 04/18/17 08:59 03/22/17 08:49 400 MG Doxycycline Hyclate (Vibramycin Cap) 100 mg BID PO 03/20/17 21:00 03/30/17 20:59 03/22/17 08:50 100 MG Polymyxin/ Trimethoprim Sulfate (Polytrim Oph Soln) 1 drops BID OP 03/20/17 21:00 04/19/17 20:59 03/22/17 08:50 1 DROPS Furosemide (Lasix Tab) 20 mg DAILY PO 03/21/17 09:00 04/20/17 08:59 03/22/17 08:50 20 MG Objective Vital Signs Date Time Temp Pulse Resp B/P (MAP) Pulse Ox O2 Delivery O2 Flow Rate FiO2 03/22/17 15:40 37.0 60 18 100/49 (66) 95 Room Air 03/22/17 08:03 37.0 70 18 115/63 (80) 92 Room Air 03/22/17 07:25 Room Air 03/22/17 00:00 Room Air 03/22/17 00:00 37.2 72 18 106/59 (75) 93 Room Air 03/21/17 20:00 Room Air 03/21/17 17:00 Room Air Physical Exam General Appearance: WD/WN, no apparent distress Neck: no JVD, trachea midline Respiratory/Chest: lungs clear, no respiratory distress, no accessory muscle use Cardiovascular: no JVD, + systolic murmur (2/6 at LLSB), + pertinent finding (+ 1 pittind edema at ankle) Abdomen: normal bowel sounds, non tender, soft Extremities: no calf tenderness, normal capillary refill Neurologic/Psychiatric: alert, oriented x 3 Skin: + pallor Laboratory Results Results Past 24 Hours Test 03/22/17 06:34 Range/Units White Blood Count 11.66 4.8-10.8 K/uL Red Blood Count 2.41 4.2-5.4 M/uL Hemoglobin 7.0 12.0-16.0 g/dL Hematocrit 22.3 37-47 % Mean Corpuscular Volume 92.5 80-100 fL Mean Corpuscular Hemoglobin 29.0 25-34 pg Mean Corpuscular Hemoglobin Concent 31.4 32-36 g/dl Platelet Count 348 130-400 K/uL Mean Platelet Volume 8.7 7.4-10.4 fL Neutrophils (%) (Auto) 69.9 % Lymphocytes (%) (Auto) 12.1 % Monocytes (%) (Auto) 13.7 % Eosinophils (%) (Auto) 1.7 % Basophils (%) (Auto) 0.3 % Neutrophils # (Auto) 8.15 1.4-6.5 K/uL Lymphocytes # (Auto) 1.41 1.2-3.4 K/uL Monocytes # (Auto) 1.60 0.11-0.59 K/uL Eosinophils # (Auto) 0.20 0-0.5 K/uL Basophils # (Auto) 0.03 0-0.2 K/uL RDW Standard Deviation 61.8 36.4-46.3 fL RDW Coefficient of Variation 18.6 11.5-14.5 % Immature Granulocyte % (Auto) 2.3 % Immature Granulocyte # (Auto) 0.27 0.00-0.02 K/uL Polychromasia 1+ Prothrombin Time 12.7 9.0-12.0 SECONDS Prothromb Time International Ratio 1.2 0.9-1.1 Activated Partial Thromboplast Time 32.3 21.0-31.0 SECONDS Partial Thromboplastin Ratio 1.2 Sodium Level 134 136-145 mmol/L Potassium Level 4.4 3.5-5.1 mmol/L Chloride Level 101 98-107 mmol/L Carbon Dioxide Level 27 21-32 mmol/L Anion Gap 6.0 3-11 mmol/L Blood Urea Nitrogen 17 7-18 mg/dl Creatinine 0.87 0.60-1.20 mg/dl Est Creatinine Clear Calc Drug Dose 45.1 ml/min Estimated GFR () 73.4 Estimated GFR (Non- 63.4 BUN/Creatinine Ratio 19.4 10-20 Random Glucose 89 70-99 mg/dl Calcium Level 7.9 8.5-10.1 mg/dl Assessment and Plan 77F who presented to ER with complaints of worsening weakness to her legs. Found to be quite anemic with Hgb 5.7 and Hct 17.2 with INR of 6.7. Received 3 units of PRBC and found to have large hematoma over right hip. Has had wound vac placed by Dr. Delarosa to negative pressure that continues to have drainage. Acute blood loss Anemia sec to hematoma from fall while on anticoagulation Hgb 8.0-->8.5-->7.6--> 7.0 S/p 3 units of PRBC Will transfuse one unit of PRBC today and recheck Hgb at 430pm Wound Vac drained 500ml yesterday FOBT Negative. Continue to monitor for signs of bleeding. anticoagulation on hold Afib Normal sinus Rhythm. c/w amiodarone c/w metoprolol and monitor HR INR 1.2 today Heparin drip and coumadin held due to decreasing Hgb R. Eye Conjunctivitis Polytrim Ophthalmic drops, 1 drop BID affected eye. Leg wound culture from leg wound grew staph aureus therefore will treat with bactrim for 7 days. switched to Doxycycline 100mg BID day #3 Leukocytosis likely due to acute stress response. now resolved. R hip 11 cm hematoma lateral to right hip and proximal femur sec to fall Dr. Delarosa placed wound vac to suction he will replace to home wound vac so patient can participate in PT as outpatient Constipation Bowel regimen with colace daily and miralax No ab pain, nausea, vomiting LE Edema Pt was restarted on her home 20mg Lasix daily that was held due to PEYTON. Continue to monitor Lytes. PEYTON (resolved) Resolved with IV fluids Hyperthyroidism c/w Synthroid 75 mcg DVT Hep Drip and Coumadin held due to anemia SS Lives at home currently They cannot apply for insurance auth until irrigating wound vac is changed to a regular wound vac. Patient will need insurance auth and updated therapy evals prior to discharge. Dispo: Med Surg FULL CODE Continued [facility] stay due to: home environment unsafe for pt Discharge planning: rehab hospital Reviewed: Pt Seen/Exam by Me History denied any concerns Constitutional: denies: fever Respiratory: negative: short of breath Gastrointestinal/Abdominal: negative: abdominal pain Musculoskeletal: negative: back pain General Appearance: no apparent distress Respiratory: lungs clear, no respiratory distress Cardiovascular: irregularly irregular Extremities: other (right hip area with dressing) Neurologic/Psychiatric: alert, oriented x 3 Assessment/Plan Resident Physician Supervision Note: I independently interviewed and examined the patient and verified the wall history and physical, reviewed labs and image studies, discussed the case with the resident Dr. Neely and agree with the findings and care plan.
--- NOTE | 2017-03-22 16:31 | Medical Consult ---
Consultation Date of Consultation: Mar 22, 2017. Attending Physician: Heidi Baker M.D. History of Present Illness 77 y/o female on coumadin for A-fib fell at her home approx 12 days ago. She has been admitted for the past 10 days and managed for right hip hematoma and INR of 6 on admission. Hematoma was evacuated by Dr. Delarosa on 03/16 and wound vac was placed. Today during vac change there was necrosis of the wound edges and odor. Surgery was asked to evaluate her further. Past Medical/Surgical History Medical Problems: (1) Atrial fibrillation (2) Cholecystectomy (3) Diverticulitis (4) Hernia repair (5) Hysterectomy (6) Symptomatic anemia Family History Cancer Diabetes mellitus Gallbladder disease Hypertension Social History lives at home alone, 3 daughters provide some assistance Smoking Status: Never Smoker Smokeless Tobacco Use: No Alcohol Use: none Drug Use: none Marital Status: Housing Status: lives with significant other Occupation Status: retired Allergies Coded Allergies: Quinolones (Unverified Adverse Reaction, Mild, HIVES, 03/10/17) Tendonitis Sulfamethoxazole w/Trimethoprim (Unverified Adverse Reaction, Mild, GI SYMPTOMS, 03/10/17) Current Inpatient Medications Current Inpatient Medications Medications (Trade) Dose Ordered Sig/Khris Route Start Time Stop Time Status Last Admin Dose Admin Acetaminophen (Tylenol Tab) 650 mg Q4H PRN PO 03/12/17 22:15 04/11/17 22:14 03/15/17 07:50 650 MG Amiodarone HCl (Cordarone Tab) 200 mg DAILY PO 03/13/17 09:00 04/12/17 08:59 03/22/17 08:49 200 MG Atorvastatin Calcium (Lipitor Tab) 20 mg DAILY PO 03/13/17 09:00 04/12/17 08:59 03/22/17 08:50 20 MG Cyanocobalamin (Vitamin B-12 Tab) 1,000 mcg DAILY PO 03/13/17 09:00 04/12/17 08:59 03/22/17 08:49 1,000 MCG Levothyroxine Sodium (Synthroid Tab) 75 mcg DAILYBB PO 03/13/17 06:00 04/12/17 05:59 03/22/17 06:01 75 MCG Acetaminophen 100 ml @ 400 mls/hr Q8H PRN IV 03/12/17 22:15 04/11/17 22:14 03/22/17 13:03 400 MLS/HR Tramadol HCl (Ultram Tab) 50 mg Q4H PRN PO 03/15/17 02:00 04/14/17 01:59 03/22/17 11:13 50 MG Metoprolol Tartrate (Lopressor Tab) 50 mg DAILY PO 03/16/17 09:00 04/15/17 08:59 03/22/17 08:49 50 MG Docusate Sodium (coLACE CAP) 100 mg BID PO 03/16/17 21:00 04/15/17 20:59 03/22/17 08:49 100 MG Polyethylene (Miralax Powder Packet) 17 gm DAILY PO 03/18/17 09:00 04/17/17 08:59 03/20/17 07:30 17 GM Magnesium Oxide (Mag-Ox Tab) 400 mg DAILY PO 03/19/17 09:00 04/18/17 08:59 03/22/17 08:49 400 MG Doxycycline Hyclate (Vibramycin Cap) 100 mg BID PO 03/20/17 21:00 03/30/17 20:59 03/22/17 08:50 100 MG Polymyxin/ Trimethoprim Sulfate (Polytrim Oph Soln) 1 drops BID OP 03/20/17 21:00 04/19/17 20:59 03/22/17 08:50 1 DROPS Furosemide (Lasix Tab) 20 mg DAILY PO 03/21/17 09:00 04/20/17 08:59 03/22/17 08:50 20 MG Physical Exam Date Time Temp Pulse Resp B/P (MAP) Pulse Ox O2 Delivery O2 Flow Rate FiO2 03/22/17 15:40 37.0 60 18 100/49 (66) 95 Room Air 03/22/17 08:03 37.0 70 18 115/63 (80) 92 Room Air 03/22/17 07:25 Room Air 03/22/17 00:00 Room Air 03/22/17 00:00 37.2 72 18 106/59 (75) 93 Room Air 03/21/17 20:00 Room Air 03/21/17 17:00 Room Air General Appearance: no apparent distress Extremities/Musculoskelatal: + pertinent finding (open right hip wound 7 cm with necrotic skin edges, 15-20 cm erythema + induration, malodorous) Laboratory Results Last 24 Hours Test 03/22/17 06:34 White Blood Count 11.66 K/uL Red Blood Count 2.41 M/uL Hemoglobin 7.0 g/dL Hematocrit 22.3 % Mean Corpuscular Volume 92.5 fL Mean Corpuscular Hemoglobin 29.0 pg Mean Corpuscular Hemoglobin Concent 31.4 g/dl Platelet Count 348 K/uL Mean Platelet Volume 8.7 fL Neutrophils (%) (Auto) 69.9 % Lymphocytes (%) (Auto) 12.1 % Monocytes (%) (Auto) 13.7 % Eosinophils (%) (Auto) 1.7 % Basophils (%) (Auto) 0.3 % Neutrophils # (Auto) 8.15 K/uL Lymphocytes # (Auto) 1.41 K/uL Monocytes # (Auto) 1.60 K/uL Eosinophils # (Auto) 0.20 K/uL Basophils # (Auto) 0.03 K/uL RDW Standard Deviation 61.8 fL RDW Coefficient of Variation 18.6 % Immature Granulocyte % (Auto) 2.3 % Immature Granulocyte # (Auto) 0.27 K/uL Polychromasia 1+ Prothrombin Time 12.7 SECONDS Prothromb Time International Ratio 1.2 Activated Partial Thromboplast Time 32.3 SECONDS Partial Thromboplastin Ratio 1.2 Sodium Level 134 mmol/L Potassium Level 4.4 mmol/L Chloride Level 101 mmol/L Carbon Dioxide Level 27 mmol/L Anion Gap 6.0 mmol/L Blood Urea Nitrogen 17 mg/dl Creatinine 0.87 mg/dl Est Creatinine Clear Calc Drug Dose 45.1 ml/min Estimated GFR () 73.4 Estimated GFR (Non- 63.4 BUN/Creatinine Ratio 19.4 Random Glucose 89 mg/dl Calcium Level 7.9 mg/dl Assessment & Plan right hip wound, deteriorating s/p evacuation of hematoma Wider debridement in the OR was recommended. She is reluctant but would like to think about it tonight. Will keep her NPO after MN, plan for debridement tomorrow morning if she wishes to proceed.
[2017-03-22 21:15] LABS: HEMATOCRIT 26.9 % (37-47)
[2017-03-23] MEDS: LEVOTHYROXINE 75 MCG TAB PO SCH (06:04)
[2017-03-23 07:27] LABS: BASO % 0.5 %; BASO ABS # 0.05 K/uL (0-0.2); COMPLETE YES; EOS % 1.7 %; HEMATOCRIT 28.1 % (37-47); IG% 2.1 %; LYMPH % 12.4 %; MEAN CELL VOLUME 90.6 fL (80-100); MEAN PLATELET VOLUME 8.9 fL (7.4-10.4); MONO % 13.1 %; NEUT % 70.2 %; PLATELET COUNT 370 K/uL (130-400); WHITE BLOOD COUNT 10.47 K/uL (4.8-10.8)
[2017-03-23 07:33] VITALS: BP 120/57; PULSE 72; TEMP 36.8; O2SAT 94
[2017-03-23 07:36] LABS: INR 1.2 (0.9-1.1); PARTIAL THROMBOPLASTIN RATIO 1.2; PROTHROMBIN TIME (PATIENT) 13.2 SECONDS (9.0-12.0)
[2017-03-23 07:54] LABS: CALCIUM 8.5 mg/dl (8.5-10.1); CREATININE 0.86 mg/dl (0.60-1.20); POTASSIUM 4.3 mmol/L (3.5-5.1)
[2017-03-23] MEDS: POLYETHYLENE (MIRALAX) 17 GM PACK PO SCH (07:55)
[2017-03-23] MEDS: DOXYCYCLINE HYCLATE 100 MG CAP PO SCH (07:56)
[2017-03-23] MEDS: DOCUSATE SODIUM 100 MG CAP PO SCH ×2 (07:56→20:08)
[2017-03-23] MEDS: ATORVASTATIN 20 MG TAB PO SCH (07:56)
[2017-03-23] MEDS: FUROSEMIDE 20 MG TAB PO SCH (07:56)
[2017-03-23] MEDS: CYANOCOBALAMIN 500 MCG TAB (VIT B-12) PO SCH (07:56)
[2017-03-23] MEDS: AMIODARONE 200 MG TAB PO SCH (07:56)
[2017-03-23] MEDS: MAGNESIUM OXIDE 400 MG TAB PO SCH (07:56)
[2017-03-23] MEDS: METOPROLOL TARTRATE 50 MG TAB PO SCH (07:56)
[2017-03-23] MEDS: TRIMETHOPRIM/POLYMYXIN B OP SCH ×2 (07:57→20:08)
[2017-03-23] MEDS ORDERED: NURSING DECISION MEDICATION ORDER SCH (09:15)
--- NOTE | 2017-03-23 09:35 | Family Medicine Progress Note ---
Progress Note Date of Service Mar 23, 2017. 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 w/ behavioral consultant, review of inpatient medication list Pain: none PO Intake: NPO Voiding: lynch catheter in place Patient without any hip pain but feels weak with ambulation She had her wound vac changed yesterday and there was necrosis and odor at the wound edges Surgery were consulted who are planning on taking patient to OR today Patient is feeling anxious about going to surgery this morning and feels that she doesn't have anybody Constitutional: No fever, No chills, No sweats Respiratory: No cough, No sputum, No wheezing, No shortness of breath, No hemoptysis Cardiovascular: No chest pain, No edema, No palpitations Abdomen: No pain, No nausea, No vomiting, No diarrhea, No GI bleeding Musculoskeletal: No joint pain, No muscle pain Psychiatric: + depression symptoms Medications Current Inpatient Medications Medications (Trade) Dose Ordered Sig/Khris Route Start Time Stop Time Status Last Admin Dose Admin Acetaminophen (Tylenol Tab) 650 mg Q4H PRN PO 03/12/17 22:15 04/11/17 22:14 03/15/17 07:50 650 MG Amiodarone HCl (Cordarone Tab) 200 mg DAILY PO 03/13/17 09:00 04/12/17 08:59 03/23/17 07:56 200 MG Atorvastatin Calcium (Lipitor Tab) 20 mg DAILY PO 03/13/17 09:00 04/12/17 08:59 03/23/17 07:56 20 MG Cyanocobalamin (Vitamin B-12 Tab) 1,000 mcg DAILY PO 03/13/17 09:00 04/12/17 08:59 03/23/17 07:56 1,000 MCG Levothyroxine Sodium (Synthroid Tab) 75 mcg DAILYBB PO 03/13/17 06:00 04/12/17 05:59 03/23/17 06:04 75 MCG Acetaminophen 100 ml @ 400 mls/hr Q8H PRN IV 03/12/17 22:15 04/11/17 22:14 03/22/17 13:03 400 MLS/HR Tramadol HCl (Ultram Tab) 50 mg Q4H PRN PO 03/15/17 02:00 04/14/17 01:59 03/22/17 11:13 50 MG Metoprolol Tartrate (Lopressor Tab) 50 mg DAILY PO 03/16/17 09:00 04/15/17 08:59 03/23/17 07:56 50 MG Docusate Sodium (coLACE CAP) 100 mg BID PO 03/16/17 21:00 04/15/17 20:59 03/23/17 07:56 100 MG Polyethylene (Miralax Powder Packet) 17 gm DAILY PO 03/18/17 09:00 04/17/17 08:59 03/20/17 07:30 17 GM Magnesium Oxide (Mag-Ox Tab) 400 mg DAILY PO 03/19/17 09:00 04/18/17 08:59 03/23/17 07:56 400 MG Polymyxin/ Trimethoprim Sulfate (Polytrim Oph Soln) 1 drops BID OP 03/20/17 21:00 04/19/17 20:59 03/23/17 07:57 1 DROPS Furosemide (Lasix Tab) 20 mg DAILY PO 03/21/17 09:00 04/20/17 08:59 03/23/17 07:56 20 MG Miscellaneous Information (Nursing Decision Medication Order) 1 ea UD N/A 03/23/17 09:15 04/22/17 09:14 UNV Piperacillin Sod/ Tazobactam Sod 3.375 gm/Dextrose 115 ml @ 28.75 mls/ hr Q8 IV 03/23/17 09:30 04/02/17 09:29 UNV Objective Vital Signs Date Time Temp Pulse Resp B/P (MAP) Pulse Ox O2 Delivery O2 Flow Rate FiO2 03/23/17 07:33 36.8 72 16 120/57 (78) 94 03/23/17 00:00 Room Air 03/22/17 23:14 37.0 62 18 117/58 (77) 94 Room Air 03/22/17 18:55 36.5 64 20 118/56 96 03/22/17 18:25 36.5 64 20 113/62 96 03/22/17 18:07 36.7 67 17 116/66 (83) 95 Room Air 03/22/17 17:43 36.6 63 18 112/57 (75) 94 Room Air 03/22/17 17:21 36.7 63 18 117/54 94 03/22/17 16:00 95 Room Air 03/22/17 15:40 37.0 60 18 100/49 (66) 95 Room Air Physical Exam General Appearance: WD/WN, no apparent distress Neck: no adenopathy, no JVD, no carotid bruits Respiratory/Chest: lungs clear, no respiratory distress, no accessory muscle use Cardiovascular: regular rate, rhythm, no edema, + systolic murmur (2/6 murmur at LUSB) Abdomen: normal bowel sounds, non tender, soft Extremities: non-tender, no pedal edema, + pertinent finding (has waffle boots on) Neurologic/Psychiatric: alert, oriented x 3, + depressed affect Skin: + pertinent finding (bandage over left hip, with surrounding bruise which is yellow in colour, much improved) Laboratory Results Results Past 24 Hours Test 03/22/17 21:06 03/23/17 06:54 Range/Units Hemoglobin 8.9 9.0 12.0-16.0 g/dL Hematocrit 26.9 28.1 37-47 % White Blood Count 10.47 4.8-10.8 K/uL Red Blood Count 3.10 4.2-5.4 M/uL Mean Corpuscular Volume 90.6 80-100 fL Mean Corpuscular Hemoglobin 29.0 25-34 pg Mean Corpuscular Hemoglobin Concent 32.0 32-36 g/dl Platelet Count 370 130-400 K/uL Mean Platelet Volume 8.9 7.4-10.4 fL Neutrophils (%) (Auto) 70.2 % Lymphocytes (%) (Auto) 12.4 % Monocytes (%) (Auto) 13.1 % Eosinophils (%) (Auto) 1.7 % Basophils (%) (Auto) 0.5 % Neutrophils # (Auto) 7.35 1.4-6.5 K/uL Lymphocytes # (Auto) 1.30 1.2-3.4 K/uL Monocytes # (Auto) 1.37 0.11-0.59 K/uL Eosinophils # (Auto) 0.18 0-0.5 K/uL Basophils # (Auto) 0.05 0-0.2 K/uL RDW Standard Deviation 59.4 36.4-46.3 fL RDW Coefficient of Variation 18.5 11.5-14.5 % Immature Granulocyte % (Auto) 2.1 % Immature Granulocyte # (Auto) 0.22 0.00-0.02 K/uL Prothrombin Time 13.2 9.0-12.0 SECONDS Prothromb Time International Ratio 1.2 0.9-1.1 Activated Partial Thromboplast Time 32.4 21.0-31.0 SECONDS Partial Thromboplastin Ratio 1.2 Sodium Level 135 136-145 mmol/L Potassium Level 4.3 3.5-5.1 mmol/L Chloride Level 101 98-107 mmol/L Carbon Dioxide Level 27 21-32 mmol/L Anion Gap 7.0 3-11 mmol/L Blood Urea Nitrogen 16 7-18 mg/dl Creatinine 0.86 0.60-1.20 mg/dl Est Creatinine Clear Calc Drug Dose 45.6 ml/min Estimated GFR () 74.5 Estimated GFR (Non- 64.3 BUN/Creatinine Ratio 19.0 10-20 Random Glucose 80 70-99 mg/dl Calcium Level 8.5 8.5-10.1 mg/dl Assessment and Plan 77F who presented to ER with complaints of worsening weakness to her legs. Found to be quite anemic with Hgb 5.7 and Hct 17.2 with INR of 6.7. Received 3 units of PRBC and found to have large hematoma over right hip. Has had wound vac placed by Dr. Delarosa. Patient had wound vac changed yesterday and was shown to have necrosis and odor at wound edges. Patient will be going for surgery this afternoon Acute blood loss Anemia sec to hematoma from fall while on anticoagulation Hgb 8.0-->8.5-->7.6--> 7.0-->9.0 currently stable S/p 4 units of PRBC, one unit given yesterday FOBT Negative. Continue to monitor for signs of bleeding. anticoagulation on hold R hip 11 cm hematoma lateral to right hip and proximal femur sec to fall Dr. Delarosa placed wound vac to suction patient had wound vac changed yesterday and found to have necrosis at wound edges surgery consulted and will take to OR later today Afib Normal sinus Rhythm. c/w amiodarone c/w metoprolol and monitor HR INR 1.2 today Heparin drip and coumadin held due to surgery today R. Eye Conjunctivitis Polytrim Ophthalmic drops, 1 drop BID affected eye. Leg wound culture from leg wound grew MSSA, originally got bactrim then switched to doxy will switch to zosyn IV due to necrosis and odor at wound edges Leukocytosis likely due to acute stress response. now resolved. Constipation Bowel regimen with colace daily and miralax No ab pain, nausea, vomiting LE Edema Pt was restarted on her home 20mg Lasix daily that was held due to PEYTON. Continue to monitor Lytes. PEYTON (resolved) Resolved with IV fluids Hyperthyroidism c/w Synthroid 75 mcg DVT Hep Drip and Coumadin held due to patient going to OR SS Lives at home currently They cannot apply for insurance auth until irrigating wound vac is changed to a regular wound vac. Patient will need insurance auth and updated therapy evals prior to discharge. Dispo: Med Surg FULL CODE Continued [facility] stay due to: ambulation difficulties Discharge planning: rehab hospital Reviewed: Pt Seen/Exam by Me History comfortable in bed postoperatively denies any concerns Constitutional: denies: fever Respiratory: negative: short of breath Cardiovascular: denies chest pain General Appearance: no apparent distress Respiratory: lungs clear, no respiratory distress Cardiovascular: regular rate, rhythm Neurologic/Psychiatric: alert, oriented x 3 Skin Characteristics: warm/dry Assessment/Plan Resident Physician Supervision Note: I independently interviewed and examined the patient and verified the wall history and physical, reviewed labs and image studies, discussed the case with the resident Dr. Neely and agree with the findings and care plan.
[2017-03-23] MEDS ORDERED: PIPERACILL/TAZOBAC IV 3.375 GM in DEXTROSE 5% 100ML IV ONE ×2 (09:45→15:45)
[2017-03-23] MEDS ORDERED: PIPERACILL/TAZOBAC CONSULT ACTIVE PRN (09:45)
[2017-03-23] MEDS ORDERED: ONDANSETRON INJ 2 MG/ML 2 ML VIAL IV PRN ×2 (10:00→12:30)
--- NOTE | 2017-03-23 10:09 | History & Physical Bridge Note ---
H&P Re-Evaluation Bridge Note: I have examined the patient, reviewed the History & Physical and in the interval since the performance of the History & Physical I have noted the following changes of clinical significance: No changes noted. we discussed her options and the procedure/risks. questions answered. ok to proceed.
[2017-03-23] MEDS ORDERED: FENTANYL CITRATE INJ 50 MCG/1 ML 2 ML VIAL ONE ×2 (10:10→12:20)
[2017-03-23] MEDS ORDERED: MIDAZOLAM HCL 1 MG/ML 2ML VIAL ONE (10:10)
[2017-03-23] MEDS ORDERED: LIDOCAINE HCL 2% 2 ML VIAL (20MG/ML) ONE (10:10)
[2017-03-23] MEDS ORDERED: PROPOFOL IV EMULSION 10 MG/ML 20 ML VIAL IV ONE (10:10)
[2017-03-23] MEDS ORDERED: ONDANSETRON INJ 2 MG/ML 2 ML VIAL ONE (10:10)
[2017-03-23] MEDS ORDERED: DEXAMETHASONE SOD INJ 4 MG/ML VIAL ONE (10:10)
[2017-03-23] MEDS ORDERED: EpHEDrine SULFATE INJ 50 MG/ML AMP ONE (11:45)
[2017-03-23] MEDS ORDERED: GLYCOPYRROLATE INJ 0.2 MG/ML VIAL ONE (11:45)
--- NOTE | 2017-03-23 11:57 | [facility] Operative Report ---
Operative Report Operative Date Mar 23, 2017. Pre-Operative Diagnosis Right Hip Wound, Deteriorating Post-Operative Diagnosis Right Hip Wound, Deteriorating Procedure(s) Performed Debridement of Right Hip Wound with Application of Wound Vac Surgeon Dr. Luna Vehicle Modification Technician Surgeon(s) GONZALO Ortiz Estimated Blood Loss 25 ml Findings large amount of retained clot;moderate amount of ischemic/ tissue. Specimens Culture #1--Right Hip Wound--for routine culture and sensitivity, STAT gram stain, aerobes and anaerobes--sent to lab at 1135 Anesthesia LMA Complication(s) None Disposition Recovery Room / PACU Description of Procedure After informed consent was obtained the patient was brought to the operating room and placed in supine position. After successful placement of a laryngeal mask airway the patient was rolled onto a gel roll slightly in the left lateral decubitus position. The open wound was sterilely prepped and draped in usual fashion. Began by exploring the wound digitally. There was a large amount of undermining in all directions. I pulled a large amount of old clot out of all of these pockets. I then used sharp knife to take down skin as well as to make the skin flaps smaller so that there would be less undermining. I did not remove all of the skin flaps as this would create extremely large defect. I debrided all and necrotic tissue. I did take a sample of fluid for Gram stain culture and sensitivity. Once all the tissue was divided we thoroughly irrigated the wound. It did appear to go the whole way down to bone. Once the wound was thoroughly irrigated I then placed a wound VAC. We placed it to 125 mm of suction. My physician's assistant boys track coach assisted throughout the case with retraction and exposure of this very large/deep wound. She also helped place the wound VAC. I attest to the content of the Intraoperative Record and any orders documented therein. Any exceptions are noted below.
[2017-03-23] MEDS ORDERED: NALOXONE HCL 0.4 MG/1 ML VIAL/CARP IV PRN (12:30)
[2017-03-23] MEDS ORDERED: FENTANYL CITRATE INJ 50 MCG/1 ML 2 ML VIAL IV PRN (12:30)
[2017-03-23] MEDS ORDERED: FLUMAZENIL 0.1 MG/1 ML 10 ML VIAL IV PRN (12:30)
[2017-03-23] MEDS ORDERED: LABETALOL HCL IV 5 MG/ML 20ML IV PRN (12:30)
[2017-03-23] MEDS ORDERED: EpHEDrine SULFATE INJ 50 MG/ML AMP IV PRN (12:30)
[2017-03-23] MEDS ORDERED: ATROPINE SULFATE 0.1 MG/ML 5ML SYR IV PRN (12:30)
--- NOTE | 2017-03-23 12:34 | Anesthesiology Progress Note ---
Anesthesia Post Op Note Date & Time Mar 23, 2017 at 12:34 Vital Signs Pain Intensity: 6.0 Vital Signs Past 12 Hours Date Time Temp Pulse Resp B/P (MAP) Pulse Ox O2 Delivery O2 Flow Rate FiO2 03/23/17 12:25 65 15 120/50 97 Nasal Cannula 2 03/23/17 12:15 66 16 119/52 97 Nasal Cannula 2 03/23/17 12:05 69 16 115/59 100 Oxymask 8 03/23/17 11:58 36.2 70 16 116/56 100 Oxymask 8 03/23/17 08:00 Room Air 03/23/17 07:33 36.8 72 16 120/57 (78) 94 Notes Mental Status: alert / awake / arousable, participated in evaluation Pt Amnestic to Procedure: Yes Nausea / Vomiting: adequately controlled Pain: adequately controlled Airway Patency, RR, SpO2: stable & adequate BP & HR: stable & adequate Hydration State: stable & adequate Anesthetic Complications: no major complications apparent
[2017-03-23 13:30] VITALS: BP 123/59; PULSE 65; TEMP 36.6; O2SAT 91
[2017-03-23 13:44] VITALS: BP 120/60; PULSE 65; TEMP 36.5; O2SAT 96
[2017-03-23 14:15] VITALS: BP 109/53; PULSE 61; TEMP 36.5; O2SAT 95
[2017-03-23 15:57] VITALS: BP 115/51; PULSE 65; TEMP 36.6; O2SAT 94
[2017-03-23] MEDS: ACETAMINOPHEN IV 100 ML IV PRN (16:36)
--- NOTE | 2017-03-23 19:47 | Medical Student: [facility] ---
Immediate Operative Summary Operative Date Mar 23, 2017. Pre-Operative Diagnosis deteriorating right hip wound (s/p evacuation of hematoma) Post-Operative Diagnosis same as pre-op Procedure(s) Performed debridement of right hip wound; dressed with wound VAC Surgeon Dr. Luna Family Service Caseworker Surgeon(s) GONZALO Ortiz Estimated Blood Loss 25 cc Findings periwound maceration; clotted blood and necrotic tissue Specimens fluid sample from wound- sent for Gram stain and culture Anesthesia LMA Complication(s) None Disposition Recovery Room / PACU
[2017-03-23] MEDS: PIPERACILL/TAZOBAC IV 3.375 GM in DEXTROSE 5% 100ML 100 ML IV SCH (20:08)
[2017-03-23 23:40] VITALS: BP 95/49; PULSE 56; TEMP 36.7; O2SAT 96
[2017-03-24] MEDS: ACETAMINOPHEN IV 100 ML IV PRN ×2 (00:49→17:34)
[2017-03-24] MEDS: PIPERACILL/TAZOBAC IV 3.375 GM in DEXTROSE 5% 100ML 100 ML IV SCH ×3 (04:28→20:36)
[2017-03-24] MEDS: LEVOTHYROXINE 75 MCG TAB PO SCH (06:05)
[2017-03-24 07:57] VITALS: BP 121/67; PULSE 67; TEMP 36.8; O2SAT 96
[2017-03-24] MEDS: TRIMETHOPRIM/POLYMYXIN B OP SCH ×2 (08:15→20:36)
[2017-03-24] MEDS: CYANOCOBALAMIN 500 MCG TAB (VIT B-12) PO SCH (08:15)
[2017-03-24] MEDS: DOCUSATE SODIUM 100 MG CAP PO SCH ×2 (08:15→20:37)
[2017-03-24] MEDS: ATORVASTATIN 20 MG TAB PO SCH (08:15)
[2017-03-24] MEDS: AMIODARONE 200 MG TAB PO SCH (08:15)
[2017-03-24] MEDS: METOPROLOL TARTRATE 50 MG TAB PO SCH (08:16)
[2017-03-24] MEDS: FUROSEMIDE 20 MG TAB PO SCH (08:16)
[2017-03-24] MEDS: POLYETHYLENE (MIRALAX) 17 GM PACK PO SCH (08:16)
[2017-03-24] MEDS: MAGNESIUM OXIDE 400 MG TAB PO SCH (08:16)
[2017-03-24 08:24] LABS: INR 1.2 (0.9-1.1); PARTIAL THROMBOPLASTIN RATIO 1.3; PROTHROMBIN TIME (PATIENT) 13.1 SECONDS (9.0-12.0)
[2017-03-24 08:45] LABS: BUN/CREATININE RATIO 15.7 (10-20); CALCIUM 8.5 mg/dl (8.5-10.1); CREATININE 1.02 mg/dl (0.60-1.20); POTASSIUM 4.2 mmol/L (3.5-5.1)
[2017-03-24 08:56] LABS: BASO % 0.3 %; BASO ABS # 0.04 K/uL (0-0.2); EOS % 2.9 %; HEMATOCRIT 27.6 % (37-47); IG% 1.4 %; LYMPH % 17.3 %; LYMPH ABS # 2.06 K/uL (1.2-3.4); MEAN CORPUSCULAR HEMOGLOBIN 29.7 pg (25-34); MEAN CORPUSCULAR HGB CONC 32.2 g/dl (32-36); MONO % 10.9 %; NEUT % 67.2 %; PLATELET COUNT 389 K/uL (130-400); WHITE BLOOD COUNT 11.92 K/uL (4.8-10.8)
[2017-03-24 09:20] LABS: ANISOCYTOSIS PRESENT; COMPLETE YES; ECHINOCYTES 1+; POLYCHROMASIA 1+; VACUOLIZATION 1+
--- NOTE | 2017-03-24 12:13 | Surgery Progress Note ---
Surgery Progress Note Date of Service Mar 24, 2017. Subjective Post OP Day: 1 + feeling well, + pain controlled, No complaints, No nausea, No vomiting Wound vac in place. Objective Vital Signs: Date Time Temp Pulse Resp B/P (MAP) Pulse Ox O2 Delivery O2 Flow Rate FiO2 03/24/17 08:00 Room Air 03/24/17 07:57 36.8 67 16 121/67 (85) 96 Room Air 03/24/17 00:00 Room Air 03/23/17 23:40 36.7 56 16 95/49 (64) 96 Room Air 03/23/17 16:00 Room Air 03/23/17 15:57 36.6 65 20 115/51 (72) 94 Room Air 03/23/17 14:15 36.5 61 18 109/53 (71) 95 03/23/17 13:44 36.5 65 18 120/60 (80) 96 Room Air 03/23/17 13:30 36.6 65 18 123/59 (80) 91 Room Air 03/23/17 12:35 36.2 62 16 117/52 97 Nasal Cannula 2 03/23/17 12:25 65 15 120/50 97 Nasal Cannula 2 03/23/17 12:15 66 16 119/52 97 Nasal Cannula 2 General Appearance: WD/WN, no apparent distress Laboratory Results: Results Past 24 Hours Test 03/24/17 07:59 Range/Units White Blood Count 11.92 4.8-10.8 K/uL Red Blood Count 3.00 4.2-5.4 M/uL Hemoglobin 8.9 12.0-16.0 g/dL Hematocrit 27.6 37-47 % Mean Corpuscular Volume 92.0 80-100 fL Mean Corpuscular Hemoglobin 29.7 25-34 pg Mean Corpuscular Hemoglobin Concent 32.2 32-36 g/dl Platelet Count 389 130-400 K/uL Mean Platelet Volume 9.0 7.4-10.4 fL Neutrophils (%) (Auto) 67.2 % Lymphocytes (%) (Auto) 17.3 % Monocytes (%) (Auto) 10.9 % Eosinophils (%) (Auto) 2.9 % Basophils (%) (Auto) 0.3 % Neutrophils # (Auto) 8.01 1.4-6.5 K/uL Lymphocytes # (Auto) 2.06 1.2-3.4 K/uL Monocytes # (Auto) 1.30 0.11-0.59 K/uL Eosinophils # (Auto) 0.34 0-0.5 K/uL Basophils # (Auto) 0.04 0-0.2 K/uL RDW Standard Deviation 60.7 36.4-46.3 fL RDW Coefficient of Variation 18.7 11.5-14.5 % Immature Granulocyte % (Auto) 1.4 % Immature Granulocyte # (Auto) 0.17 0.00-0.02 K/uL Toxic Vacuolation 1+ Polychromasia 1+ Anisocytosis PRESENT Echinocytes 1+ Prothrombin Time 13.1 9.0-12.0 SECONDS Prothromb Time International Ratio 1.2 0.9-1.1 Activated Partial Thromboplast Time 34.1 21.0-31.0 SECONDS Partial Thromboplastin Ratio 1.3 Sodium Level 136 136-145 mmol/L Potassium Level 4.2 3.5-5.1 mmol/L Chloride Level 101 98-107 mmol/L Carbon Dioxide Level 27 21-32 mmol/L Anion Gap 8.0 3-11 mmol/L Blood Urea Nitrogen 16 7-18 mg/dl Creatinine 1.02 0.60-1.20 mg/dl Est Creatinine Clear Calc Drug Dose 38.5 ml/min Estimated GFR () 60.6 Estimated GFR (Non- 52.3 BUN/Creatinine Ratio 15.7 10-20 Random Glucose 87 70-99 mg/dl Calcium Level 8.5 8.5-10.1 mg/dl Assessment & Plan 77-year-old female POD #1 s/p Debridement Right Thigh Patient seen and examined with Dr. Luna. Doing well- pain controlled, wound vac in place. No new concerns overnight. Plan is for patient to be discharged to [facility] tomorrow. Ok to discharge from Gen Surgery standpoint with wound vac.
[2017-03-24 15:12] VITALS: BP 106/61; PULSE 63; TEMP 36.7; O2SAT 96
--- NOTE | 2017-03-24 16:39 | Family Medicine Progress Note ---
Progress Note Date of Service Mar 24, 2017. 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 w/ solar energy consultant and designer, review of inpatient medication list Pain: none PO Intake: good Voiding: no voiding problems Patient feeling better today Still feels shaky on her legs denies any worsening leg pain, fevers or chills Constitutional: No fever, No chills Respiratory: No cough, No sputum, No shortness of breath Cardiovascular: No chest pain, No edema, No palpitations Abdomen: No pain, No nausea, No vomiting, No diarrhea Musculoskeletal: No joint pain, No muscle pain, No calf pain Heme: + abnormal bleeding/bruising Skin: No rash, No itch, No new/changing skin lesions Medications Current Inpatient Medications Medications (Trade) Dose Ordered Sig/Khris Route Start Time Stop Time Status Last Admin Dose Admin Acetaminophen (Tylenol Tab) 650 mg Q4H PRN PO 03/12/17 22:15 04/11/17 22:14 03/15/17 07:50 650 MG Amiodarone HCl (Cordarone Tab) 200 mg DAILY PO 03/13/17 09:00 04/12/17 08:59 03/24/17 08:15 200 MG Atorvastatin Calcium (Lipitor Tab) 20 mg DAILY PO 03/13/17 09:00 04/12/17 08:59 03/24/17 08:15 20 MG Cyanocobalamin (Vitamin B-12 Tab) 1,000 mcg DAILY PO 03/13/17 09:00 04/12/17 08:59 03/24/17 08:15 1,000 MCG Levothyroxine Sodium (Synthroid Tab) 75 mcg DAILYBB PO 03/13/17 06:00 04/12/17 05:59 03/24/17 06:05 75 MCG Acetaminophen 100 ml @ 400 mls/hr Q8H PRN IV 03/12/17 22:15 04/11/17 22:14 03/24/17 00:49 400 MLS/HR Tramadol HCl (Ultram Tab) 50 mg Q4H PRN PO 03/15/17 02:00 04/14/17 01:59 03/22/17 11:13 50 MG Metoprolol Tartrate (Lopressor Tab) 50 mg DAILY PO 03/16/17 09:00 04/15/17 08:59 03/24/17 08:16 50 MG Docusate Sodium (coLACE CAP) 100 mg BID PO 03/16/17 21:00 04/15/17 20:59 03/24/17 08:15 100 MG Polyethylene (Miralax Powder Packet) 17 gm DAILY PO 03/18/17 09:00 04/17/17 08:59 03/20/17 07:30 17 GM Magnesium Oxide (Mag-Ox Tab) 400 mg DAILY PO 03/19/17 09:00 04/18/17 08:59 03/24/17 08:16 400 MG Polymyxin/ Trimethoprim Sulfate (Polytrim Oph Soln) 1 drops BID OP 03/20/17 21:00 04/19/17 20:59 03/24/17 08:15 1 DROPS Furosemide (Lasix Tab) 20 mg DAILY PO 03/21/17 09:00 04/20/17 08:59 03/24/17 08:16 20 MG Piperacillin Sod/ Tazobactam Sod 3.375 gm/Dextrose 115 ml @ 28.75 mls/ hr Q8H IV 03/23/17 16:00 04/02/17 15:59 03/24/17 12:03 28.75 MLS/HR Piperacillin Sod/ Tazobactam Sod (Consult) 1 ea UD PRN N/A 03/23/17 09:45 04/22/17 09:44 Objective Vital Signs Date Time Temp Pulse Resp B/P (MAP) Pulse Ox O2 Delivery O2 Flow Rate FiO2 03/24/17 15:12 36.7 63 16 106/61 (76) 96 Room Air 03/24/17 08:00 Room Air 03/24/17 07:57 36.8 67 16 121/67 (85) 96 Room Air 03/24/17 00:00 Room Air 03/23/17 23:40 36.7 56 16 95/49 (64) 96 Room Air Physical Exam Notes: General Appearance: WD/WN, no apparent distress Neck: no adenopathy, no JVD, no carotid bruits Respiratory/Chest: lungs clear, no respiratory distress, no accessory muscle use Cardiovascular: regular rate, rhythm, no edema, + systolic murmur (2/6 murmur at LUSB) Abdomen: normal bowel sounds, non tender, soft Extremities: non-tender, no pedal edema, + pertinent finding (has waffle boots on) Neurologic/Psychiatric: alert, oriented x 3, normal affect Skin: + pertinent finding (wound vac over left lateral thigh, mild surrounding erythema, mild tenderness to touch surrounding vac) Laboratory Results Results Past 24 Hours Test 03/24/17 07:59 Range/Units White Blood Count 11.92 4.8-10.8 K/uL Red Blood Count 3.00 4.2-5.4 M/uL Hemoglobin 8.9 12.0-16.0 g/dL Hematocrit 27.6 37-47 % Mean Corpuscular Volume 92.0 80-100 fL Mean Corpuscular Hemoglobin 29.7 25-34 pg Mean Corpuscular Hemoglobin Concent 32.2 32-36 g/dl Platelet Count 389 130-400 K/uL Mean Platelet Volume 9.0 7.4-10.4 fL Neutrophils (%) (Auto) 67.2 % Lymphocytes (%) (Auto) 17.3 % Monocytes (%) (Auto) 10.9 % Eosinophils (%) (Auto) 2.9 % Basophils (%) (Auto) 0.3 % Neutrophils # (Auto) 8.01 1.4-6.5 K/uL Lymphocytes # (Auto) 2.06 1.2-3.4 K/uL Monocytes # (Auto) 1.30 0.11-0.59 K/uL Eosinophils # (Auto) 0.34 0-0.5 K/uL Basophils # (Auto) 0.04 0-0.2 K/uL RDW Standard Deviation 60.7 36.4-46.3 fL RDW Coefficient of Variation 18.7 11.5-14.5 % Immature Granulocyte % (Auto) 1.4 % Immature Granulocyte # (Auto) 0.17 0.00-0.02 K/uL Toxic Vacuolation 1+ Polychromasia 1+ Anisocytosis PRESENT Echinocytes 1+ Prothrombin Time 13.1 9.0-12.0 SECONDS Prothromb Time International Ratio 1.2 0.9-1.1 Activated Partial Thromboplast Time 34.1 21.0-31.0 SECONDS Partial Thromboplastin Ratio 1.3 Sodium Level 136 136-145 mmol/L Potassium Level 4.2 3.5-5.1 mmol/L Chloride Level 101 98-107 mmol/L Carbon Dioxide Level 27 21-32 mmol/L Anion Gap 8.0 3-11 mmol/L Blood Urea Nitrogen 16 7-18 mg/dl Creatinine 1.02 0.60-1.20 mg/dl Est Creatinine Clear Calc Drug Dose 38.5 ml/min Estimated GFR () 60.6 Estimated GFR (Non- 52.3 BUN/Creatinine Ratio 15.7 10-20 Random Glucose 87 70-99 mg/dl Calcium Level 8.5 8.5-10.1 mg/dl Assessment and Plan 77F who presented to ER with complaints of worsening weakness to her legs. Found to be quite anemic with Hgb 5.7 and Hct 17.2 with INR of 6.7. Received 3 units of PRBC and found to have large hematoma over right hip. Has had wound vac placed by Dr. Delarosa. Patient had wound vac changedand was shown to have necrosis and odor at wound edges. Patient went for debridement of hematoma and wound vac was replaced. Acute blood loss Anemia sec to hematoma from fall while on anticoagulation Hgb stable at 8.9 S/p 4 units of PRBC FOBT Negative. No further signs of bleeding. anticoagulation to be restarted tomorrow before discharge R hip 11 cm hematoma lateral to right hip and proximal femur sec to fall s/p debridement on 03/23/17 for necrosis at wound edges Continue wound vac IV antibiotics. Afib Normal sinus Rhythm. c/w amiodarone c/w metoprolol and monitor HR INR 1.2 today On Heparin drip. resume coumadin. R. Eye Conjunctivitis Polytrim Ophthalmic drops, 1 drop BID affected eye. Leg wound wound culture from 03/16 grew MSSA, originally got bactrim then switched to doxy Now on zosyn IV due to necrosis and odor at wound edges Repeat wound culture from 03/23 pending Constipation Bowel regimen with colace daily and miralax No ab pain, nausea, vomiting LE Edema Pt was restarted on her home 20mg Lasix daily that was held due to PEYTON. Continue to monitor Lytes. PEYTON (resolved) Resolved with IV fluids Hyperthyroidism c/w Synthroid 75 mcg DVT Hep Drip and Coumadin held due to recent hematoma and surgery SS Lives at home currently Patient with referral to Insurance authorization is pending Dispo: Med Surg FULL CODE Continued [facility] stay due to: ambulation difficulties Discharge planning: rehab hospital Reviewed: Pt Seen/Exam by Me History no concerns Constitutional: denies: fever Respiratory: negative: short of breath Cardiovascular: denies chest pain Gastrointestinal/Abdominal: negative: abdominal pain General Appearance: no apparent distress Respiratory: lungs clear, no respiratory distress Cardiovascular: regular rate, rhythm Skin Characteristics: other (right hip wound with vac. ) Assessment/Plan Resident Physician Supervision Note: I independently interviewed and examined the patient and verified the wall history and physical, reviewed labs and image studies, discussed the case with the resident Dr. Neely and agree with the findings and care plan.
[2017-03-24] MEDS ORDERED: WARFARIN SOD 5 MG TAB PO ONE (18:00)
[2017-03-24 23:15] VITALS: BP 123/57; PULSE 60; TEMP 36.7; O2SAT 95
[2017-03-25] MEDS: PIPERACILL/TAZOBAC IV 3.375 GM in DEXTROSE 5% 100ML 100 ML IV SCH ×3 (04:02→19:45)
[2017-03-25] MEDS: LEVOTHYROXINE 75 MCG TAB PO SCH (06:28)
[2017-03-25 07:04] VITALS: BP 122/59; PULSE 65; TEMP 36.8; O2SAT 96
[2017-03-25 07:07] LABS: BASO % 0.4 %; BASO ABS # 0.04 K/uL (0-0.2); LYMPH % 20.5 %; LYMPH ABS # 2.06 K/uL (1.2-3.4); MEAN CELL VOLUME 93.4 fL (80-100); MEAN CORPUSCULAR HEMOGLOBIN 29.4 pg (25-34); MEAN CORPUSCULAR HGB CONC 31.5 g/dl (32-36); MEAN PLATELET VOLUME 8.5 fL (7.4-10.4); NEUT % 61.1 %; PLATELET COUNT 350 K/uL (130-400); RED BLOOD COUNT 2.89 M/uL (4.2-5.4); WHITE BLOOD COUNT 10.06 K/uL (4.8-10.8)
[2017-03-25 07:23] LABS: INR 1.2 (0.9-1.1); PARTIAL THROMBOPLASTIN RATIO 1.3; PROTHROMBIN TIME (PATIENT) 13.4 SECONDS (9.0-12.0)
[2017-03-25 07:37] LABS: ANISOCYTOSIS PRESENT; COMPLETE YES; HYPERSEGMENTED POLYS 1+; POLYCHROMASIA 1+; SPHEROCYTE 1+; TOXIC GRANULATION 1+; VACUOLIZATION 1+
[2017-03-25 07:47] LABS: BUN/CREATININE RATIO 17.9 (10-20); CREATININE 0.97 mg/dl (0.60-1.20); POTASSIUM 4.1 mmol/L (3.5-5.1)
--- NOTE | 2017-03-25 08:02 | Surgery Progress Note ---
Surgery Progress Note Date of Service Mar 25, 2017. Subjective Post OP Day: 2 + feeling well, + pain controlled, No complaints, No nausea, No vomiting Wound vac in place. Objective Vital Signs: Date Time Temp Pulse Resp B/P (MAP) Pulse Ox O2 Delivery O2 Flow Rate FiO2 03/25/17 07:04 36.8 65 18 122/59 (80) 96 Room Air 03/25/17 00:00 Room Air 03/24/17 23:15 36.7 60 16 123/57 (79) 95 Room Air 03/24/17 16:00 Room Air 03/24/17 15:12 36.7 63 16 106/61 (76) 96 Room Air General Appearance: WD/WN, no apparent distress Incision(s): findings (Wound vac in place. ) Laboratory Results: Results Past 24 Hours Test 03/25/17 06:58 Range/Units White Blood Count 10.06 4.8-10.8 K/uL Red Blood Count 2.89 4.2-5.4 M/uL Hemoglobin 8.5 12.0-16.0 g/dL Hematocrit 27.0 37-47 % Mean Corpuscular Volume 93.4 80-100 fL Mean Corpuscular Hemoglobin 29.4 25-34 pg Mean Corpuscular Hemoglobin Concent 31.5 32-36 g/dl Platelet Count 350 130-400 K/uL Mean Platelet Volume 8.5 7.4-10.4 fL Neutrophils (%) (Auto) 61.1 % Lymphocytes (%) (Auto) 20.5 % Monocytes (%) (Auto) 11.0 % Eosinophils (%) (Auto) 5.0 % Basophils (%) (Auto) 0.4 % Neutrophils # (Auto) 6.15 1.4-6.5 K/uL Lymphocytes # (Auto) 2.06 1.2-3.4 K/uL Monocytes # (Auto) 1.11 0.11-0.59 K/uL Eosinophils # (Auto) 0.50 0-0.5 K/uL Basophils # (Auto) 0.04 0-0.2 K/uL RDW Standard Deviation 62.2 36.4-46.3 fL RDW Coefficient of Variation 18.8 11.5-14.5 % Immature Granulocyte % (Auto) 2.0 % Immature Granulocyte # (Auto) 0.20 0.00-0.02 K/uL Hypersegmented Polys 1+ Toxic Granulation 1+ Toxic Vacuolation 1+ Polychromasia 1+ Anisocytosis PRESENT Spherocytes 1+ Prothrombin Time 13.4 9.0-12.0 SECONDS Prothromb Time International Ratio 1.2 0.9-1.1 Activated Partial Thromboplast Time 34.1 21.0-31.0 SECONDS Partial Thromboplastin Ratio 1.3 Sodium Level 136 136-145 mmol/L Potassium Level 4.1 3.5-5.1 mmol/L Chloride Level 105 98-107 mmol/L Carbon Dioxide Level 26 21-32 mmol/L Anion Gap 5.0 3-11 mmol/L Blood Urea Nitrogen 17 7-18 mg/dl Creatinine 0.97 0.60-1.20 mg/dl Est Creatinine Clear Calc Drug Dose 40.5 ml/min Estimated GFR () 64.4 Estimated GFR (Non- 55.5 BUN/Creatinine Ratio 17.9 10-20 Random Glucose 92 70-99 mg/dl Calcium Level 8.0 8.5-10.1 mg/dl Assessment & Plan 77-year-old female POD #2 s/p Debridement Right Thigh Patient continues to do well- no new concerns overnight. Plan is for discharge today to [facility]- will discharge with wound vac. General Surgery will sign off. Thank you for allowing us to participate in the care of Ms. Carlson. 77-year-old female POD #1 s/p Debridement Right Thigh Patient seen and examined with Dr. Luna. Doing well- pain controlled, wound vac in place. No new concerns overnight. Plan is for patient to be discharged to [facility] tomorrow. Ok to discharge from Gen Surgery standpoint with wound vac. 77-year-old female POD #1 s/p Debridement Right Thigh Patient seen and examined with Dr. Luna. Doing well- pain controlled, wound vac in place. No new concerns overnight. Plan is for patient to be discharged to [facility] tomorrow. Ok to discharge from Gen Surgery standpoint with wound vac.
[2017-03-25] MEDS: ATORVASTATIN 20 MG TAB PO SCH (09:30)
[2017-03-25] MEDS: POLYETHYLENE (MIRALAX) 17 GM PACK PO SCH (09:30)
[2017-03-25] MEDS: FUROSEMIDE 20 MG TAB PO SCH (09:30)
[2017-03-25] MEDS: CYANOCOBALAMIN 500 MCG TAB (VIT B-12) PO SCH (09:30)
[2017-03-25] MEDS: METOPROLOL TARTRATE 50 MG TAB PO SCH (09:30)
[2017-03-25] MEDS: DOCUSATE SODIUM 100 MG CAP PO SCH ×2 (09:30→19:46)
[2017-03-25] MEDS: AMIODARONE 200 MG TAB PO SCH (09:30)
[2017-03-25] MEDS: MAGNESIUM OXIDE 400 MG TAB PO SCH (09:30)
[2017-03-25] MEDS: TRIMETHOPRIM/POLYMYXIN B OP SCH ×2 (09:31→19:48)
--- NOTE | 2017-03-25 14:51 | Family Medicine Progress Note ---
Progress Note Date of Service Mar 25, 2017. 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 w/ [employer] adf consultant, review of inpatient medication list Pain: none PO Intake: poor Voiding: no voiding problems Patient feeling well and without any issues overnight Did have a small bowel movement this morning She says her legs still feel weak but that she was able to walk yesterday with the physical therapist Constitutional: No fever, No chills Respiratory: + cough, + sputum, No wheezing, No shortness of breath Cardiovascular: No chest pain, No edema, No palpitations Abdomen: No pain, No nausea, No vomiting, No diarrhea, No constipation Musculoskeletal: No joint pain, No muscle pain, No calf pain Female : No dysuria Psychiatric: No depression symptoms Heme: No abnormal bleeding/bruising Skin: No rash, No itch Medications Current Inpatient Medications Medications (Trade) Dose Ordered Sig/Khris Route Start Time Stop Time Status Last Admin Dose Admin Acetaminophen (Tylenol Tab) 650 mg Q4H PRN PO 03/12/17 22:15 04/11/17 22:14 03/15/17 07:50 650 MG Amiodarone HCl (Cordarone Tab) 200 mg DAILY PO 03/13/17 09:00 04/12/17 08:59 03/25/17 09:30 200 MG Atorvastatin Calcium (Lipitor Tab) 20 mg DAILY PO 03/13/17 09:00 04/12/17 08:59 03/25/17 09:30 20 MG Cyanocobalamin (Vitamin B-12 Tab) 1,000 mcg DAILY PO 03/13/17 09:00 04/12/17 08:59 03/25/17 09:30 1,000 MCG Levothyroxine Sodium (Synthroid Tab) 75 mcg DAILYBB PO 03/13/17 06:00 04/12/17 05:59 03/25/17 06:28 75 MCG Acetaminophen 100 ml @ 400 mls/hr Q8H PRN IV 03/12/17 22:15 04/11/17 22:14 03/24/17 17:34 400 MLS/HR Tramadol HCl (Ultram Tab) 50 mg Q4H PRN PO 03/15/17 02:00 04/14/17 01:59 03/22/17 11:13 50 MG Metoprolol Tartrate (Lopressor Tab) 50 mg DAILY PO 03/16/17 09:00 04/15/17 08:59 03/25/17 09:30 50 MG Docusate Sodium (coLACE CAP) 100 mg BID PO 03/16/17 21:00 04/15/17 20:59 03/25/17 09:30 100 MG Polyethylene (Miralax Powder Packet) 17 gm DAILY PO 03/18/17 09:00 04/17/17 08:59 03/25/17 09:30 17 GM Magnesium Oxide (Mag-Ox Tab) 400 mg DAILY PO 03/19/17 09:00 04/18/17 08:59 03/25/17 09:30 400 MG Polymyxin/ Trimethoprim Sulfate (Polytrim Oph Soln) 1 drops BID OP 03/20/17 21:00 04/19/17 20:59 03/25/17 09:31 1 DROPS Furosemide (Lasix Tab) 20 mg DAILY PO 03/21/17 09:00 04/20/17 08:59 03/25/17 09:30 20 MG Piperacillin Sod/ Tazobactam Sod 3.375 gm/Dextrose 115 ml @ 28.75 mls/ hr Q8H IV 03/23/17 16:00 04/02/17 15:59 03/25/17 11:39 28.75 MLS/HR Piperacillin Sod/ Tazobactam Sod (Consult) 1 ea UD PRN N/A 03/23/17 09:45 04/22/17 09:44 Warfarin Sodium (Coumadin Tab) 5 mg DAILY@16 PO 03/25/17 16:00 04/24/17 15:59 Objective Vital Signs Date Time Temp Pulse Resp B/P (MAP) Pulse Ox O2 Delivery O2 Flow Rate FiO2 03/25/17 08:30 Room Air 03/25/17 07:04 36.8 65 18 122/59 (80) 96 Room Air 03/25/17 00:00 Room Air 03/24/17 23:15 36.7 60 16 123/57 (79) 95 Room Air 03/24/17 16:00 Room Air 03/24/17 15:12 36.7 63 16 106/61 (76) 96 Room Air Physical Exam Notes: General Appearance: WD/WN, no apparent distress Neck: no adenopathy, no JVD, no carotid bruits Respiratory/Chest: lungs clear, no respiratory distress, no accessory muscle use Cardiovascular: regular rate, rhythm, no edema, + systolic murmur (2/6 murmur at LUSB) Abdomen: normal bowel sounds, non tender, soft Extremities: non-tender, no pedal edema, Neurologic/Psychiatric: alert, oriented x 3, normal affect Skin: + pertinent finding (wound vac over left lateral thigh with drain in place, mild surrounding erythema) Laboratory Results Results Past 24 Hours Test 03/25/17 06:58 Range/Units White Blood Count 10.06 4.8-10.8 K/uL Red Blood Count 2.89 4.2-5.4 M/uL Hemoglobin 8.5 12.0-16.0 g/dL Hematocrit 27.0 37-47 % Mean Corpuscular Volume 93.4 80-100 fL Mean Corpuscular Hemoglobin 29.4 25-34 pg Mean Corpuscular Hemoglobin Concent 31.5 32-36 g/dl Platelet Count 350 130-400 K/uL Mean Platelet Volume 8.5 7.4-10.4 fL Neutrophils (%) (Auto) 61.1 % Lymphocytes (%) (Auto) 20.5 % Monocytes (%) (Auto) 11.0 % Eosinophils (%) (Auto) 5.0 % Basophils (%) (Auto) 0.4 % Neutrophils # (Auto) 6.15 1.4-6.5 K/uL Lymphocytes # (Auto) 2.06 1.2-3.4 K/uL Monocytes # (Auto) 1.11 0.11-0.59 K/uL Eosinophils # (Auto) 0.50 0-0.5 K/uL Basophils # (Auto) 0.04 0-0.2 K/uL RDW Standard Deviation 62.2 36.4-46.3 fL RDW Coefficient of Variation 18.8 11.5-14.5 % Immature Granulocyte % (Auto) 2.0 % Immature Granulocyte # (Auto) 0.20 0.00-0.02 K/uL Hypersegmented Polys 1+ Toxic Granulation 1+ Toxic Vacuolation 1+ Polychromasia 1+ Anisocytosis PRESENT Spherocytes 1+ Prothrombin Time 13.4 9.0-12.0 SECONDS Prothromb Time International Ratio 1.2 0.9-1.1 Activated Partial Thromboplast Time 34.1 21.0-31.0 SECONDS Partial Thromboplastin Ratio 1.3 Sodium Level 136 136-145 mmol/L Potassium Level 4.1 3.5-5.1 mmol/L Chloride Level 105 98-107 mmol/L Carbon Dioxide Level 26 21-32 mmol/L Anion Gap 5.0 3-11 mmol/L Blood Urea Nitrogen 17 7-18 mg/dl Creatinine 0.97 0.60-1.20 mg/dl Est Creatinine Clear Calc Drug Dose 40.5 ml/min Estimated GFR () 64.4 Estimated GFR (Non- 55.5 BUN/Creatinine Ratio 17.9 10-20 Random Glucose 92 70-99 mg/dl Calcium Level 8.0 8.5-10.1 mg/dl Assessment and Plan 77F who presented to ER with complaints of worsening weakness to her legs. Found to be quite anemic with Hgb 5.7 and Hct 17.2 with INR of 6.7. Received 3 units of PRBC and found to have large hematoma over right hip. Has had wound vac placed by Dr. Delarosa. Patient had wound vac changed and was shown to have necrosis and odor at wound edges. Patient went for debridement of hematoma and wound vac was replaced. Acute blood loss Anemia sec to hematoma from fall while on anticoagulation Hgb stable at 8.5 S/p 4 units of PRBC FOBT Negative. No further signs of bleeding. anticoagulation restarted yesterday R hip 11 cm hematoma lateral to right hip and proximal femur sec to fall s/p debridement on 03/23/17 for necrosis at wound edges Continue wound vac IV antibiotics. Afib Normal sinus Rhythm. c/w amiodarone c/w metoprolol and monitor HR INR 1.2 today resume coumadin 5mg daily R. Eye Conjunctivitis Polytrim Ophthalmic drops, 1 drop BID affected eye. Leg wound wound culture from 03/16 grew MSSA, originally got bactrim then switched to doxy Now on zosyn IV due to necrosis and odor at wound edges Repeat wound culture from 03/23 growing ecoli and strep ID consult made Constipation Bowel regimen with colace daily and miralax No ab pain, nausea, vomiting LE Edema Pt was restarted on her home 20mg Lasix daily that was held due to PEYTON. Continue to monitor Lytes. PEYTON (resolved) Resolved with IV fluids Hyperthyroidism c/w Synthroid 75 mcg DVT Coumadin resumed SS Lives at home currently Patient with referral to [facility] Insurance authorization is pending Dispo: Med Surg FULL CODE Continued [facility] stay due to: multiple IV medications needed, home environment unsafe for pt Discharge planning: rehab hospital Reviewed: Pt Seen/Exam by Me History sitting in chair. no concern. Constitutional: denies: fever Respiratory: negative: short of breath Cardiovascular: denies chest pain General Appearance: no apparent distress Respiratory: lungs clear, no respiratory distress Cardiovascular: regular rate, rhythm Gastrointestinal: normal bowel sounds, non tender, soft Neurologic/Psychiatric: alert, oriented x 3 Skin Characteristics: other (right hip with wound - vac - surrounding erythema) Assessment/Plan Resident Physician Supervision Note: I independently interviewed and examined the patient and verified the wall history and physical, reviewed labs and image studies, discussed the case with the resident Dr. Neely and agree with the findings and care plan.
[2017-03-25 14:59] VITALS: BP 107/58; PULSE 67; TEMP 36.6; O2SAT 97
[2017-03-25] MEDS: WARFARIN SOD 5 MG TAB PO SCH (15:46)
[2017-03-25 23:56] VITALS: BP 122/57; PULSE 60; TEMP 36.9; O2SAT 97
[2017-03-26] MEDS: PIPERACILL/TAZOBAC IV 3.375 GM in DEXTROSE 5% 100ML 100 ML IV SCH ×3 (04:10→20:44)
[2017-03-26] MEDS: LEVOTHYROXINE 75 MCG TAB PO SCH (06:07)
[2017-03-26 07:03] VITALS: BP 116/47; PULSE 60; TEMP 36.9; O2SAT 94
[2017-03-26 07:25] LABS: BASO % 0.6 %; BASO ABS # 0.06 K/uL (0-0.2); EOS % 5.7 %; HEMATOCRIT 28.2 % (37-47); IG% 4.4 %; LYMPH % 21.7 %; LYMPH ABS # 2.05 K/uL (1.2-3.4); MEAN CELL VOLUME 94.3 fL (80-100); MEAN CORPUSCULAR HEMOGLOBIN 29.1 pg (25-34); MEAN CORPUSCULAR HGB CONC 30.9 g/dl (32-36); MEAN PLATELET VOLUME 8.5 fL (7.4-10.4); MONO % 12.3 %; NEUT % 55.3 %; PLATELET COUNT 349 K/uL (130-400); RED BLOOD COUNT 2.99 M/uL (4.2-5.4); WHITE BLOOD COUNT 9.44 K/uL (4.8-10.8)
[2017-03-26 07:33] LABS: INR 1.4 (0.9-1.1); PARTIAL THROMBOPLASTIN RATIO 1.3
[2017-03-26 07:53] LABS: BUN/CREATININE RATIO 17.1 (10-20); CALCIUM 8.4 mg/dl (8.5-10.1); CREATININE 1.03 mg/dl (0.60-1.20); POTASSIUM 4.1 mmol/L (3.5-5.1)
--- NOTE | 2017-03-26 07:55 | Family Medicine Progress Note ---
Progress Note Date of Service Mar 26, 2017. 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 consultant, review of inpatient medication list Pain: none PO Intake: good Voiding: no voiding problems Patient without any hip or leg pain Still weak when walking but is able to ambulate with help No fevers, chills or sweats Constitutional: No fever, No chills, No sweats Respiratory: + cough, No sputum, No shortness of breath, No dyspnea on exertion Cardiovascular: No chest pain, No edema, No palpitations Abdomen: + diarrhea (3 episodes of diarrhea yesterday), No pain, No nausea, No vomiting Female : No dysuria, No urinary frequency Heme: No abnormal bleeding/bruising Medications Current Inpatient Medications Medications (Trade) Dose Ordered Sig/Khris Route Start Time Stop Time Status Last Admin Dose Admin Acetaminophen (Tylenol Tab) 650 mg Q4H PRN PO 03/12/17 22:15 04/11/17 22:14 03/15/17 07:50 650 MG Amiodarone HCl (Cordarone Tab) 200 mg DAILY PO 03/13/17 09:00 04/12/17 08:59 03/25/17 09:30 200 MG Atorvastatin Calcium (Lipitor Tab) 20 mg DAILY PO 03/13/17 09:00 04/12/17 08:59 03/25/17 09:30 20 MG Cyanocobalamin (Vitamin B-12 Tab) 1,000 mcg DAILY PO 03/13/17 09:00 04/12/17 08:59 03/25/17 09:30 1,000 MCG Levothyroxine Sodium (Synthroid Tab) 75 mcg DAILYBB PO 03/13/17 06:00 04/12/17 05:59 03/26/17 06:07 75 MCG Acetaminophen 100 ml @ 400 mls/hr Q8H PRN IV 03/12/17 22:15 04/11/17 22:14 03/24/17 17:34 400 MLS/HR Tramadol HCl (Ultram Tab) 50 mg Q4H PRN PO 03/15/17 02:00 04/14/17 01:59 03/22/17 11:13 50 MG Metoprolol Tartrate (Lopressor Tab) 50 mg DAILY PO 03/16/17 09:00 04/15/17 08:59 03/25/17 09:30 50 MG Docusate Sodium (coLACE CAP) 100 mg BID PO 03/16/17 21:00 04/15/17 20:59 03/25/17 09:30 100 MG Polyethylene (Miralax Powder Packet) 17 gm DAILY PO 03/18/17 09:00 04/17/17 08:59 03/25/17 09:30 17 GM Magnesium Oxide (Mag-Ox Tab) 400 mg DAILY PO 03/19/17 09:00 04/18/17 08:59 03/25/17 09:30 400 MG Polymyxin/ Trimethoprim Sulfate (Polytrim Oph Soln) 1 drops BID OP 03/20/17 21:00 04/19/17 20:59 03/25/17 19:48 1 DROPS Furosemide (Lasix Tab) 20 mg DAILY PO 03/21/17 09:00 04/20/17 08:59 03/25/17 09:30 20 MG Piperacillin Sod/ Tazobactam Sod 3.375 gm/Dextrose 115 ml @ 28.75 mls/ hr Q8H IV 03/23/17 16:00 04/02/17 15:59 03/26/17 04:10 28.75 MLS/HR Piperacillin Sod/ Tazobactam Sod (Consult) 1 ea UD PRN N/A 03/23/17 09:45 04/22/17 09:44 Warfarin Sodium (Coumadin Tab) 5 mg DAILY@16 PO 03/25/17 16:00 04/24/17 15:59 03/25/17 15:46 5 MG Objective Vital Signs Date Time Temp Pulse Resp B/P (MAP) Pulse Ox O2 Delivery O2 Flow Rate FiO2 03/26/17 07:03 36.9 60 20 116/47 (70) 94 03/25/17 23:59 Room Air 03/25/17 23:56 36.9 60 18 122/57 (78) 97 Room Air 03/25/17 16:00 Room Air 03/25/17 14:59 36.6 67 18 107/58 (74) 97 Room Air 03/25/17 08:30 Room Air Physical Exam Notes: General Appearance: WD/WN, no apparent distress Neck: no adenopathy, no JVD, no carotid bruits Respiratory/Chest: lungs clear, no respiratory distress, no accessory muscle use Cardiovascular: regular rate, rhythm, no edema, + systolic murmur (2/6 murmur at LUSB) Abdomen: normal bowel sounds, non tender, soft Extremities: non-tender, no pedal edema, Neurologic/Psychiatric: alert, oriented x 3, normal affect Skin: + pertinent finding (wound vac over left lateral thigh with drain in place, no surrounding erythema, or pain to palpation) Laboratory Results Results Past 24 Hours Test 03/26/17 07:05 Range/Units White Blood Count 9.44 4.8-10.8 K/uL Red Blood Count 2.99 4.2-5.4 M/uL Hemoglobin 8.7 12.0-16.0 g/dL Hematocrit 28.2 37-47 % Mean Corpuscular Volume 94.3 80-100 fL Mean Corpuscular Hemoglobin 29.1 25-34 pg Mean Corpuscular Hemoglobin Concent 30.9 32-36 g/dl Platelet Count 349 130-400 K/uL Mean Platelet Volume 8.5 7.4-10.4 fL Neutrophils (%) (Auto) 55.3 % Lymphocytes (%) (Auto) 21.7 % Monocytes (%) (Auto) 12.3 % Eosinophils (%) (Auto) 5.7 % Basophils (%) (Auto) 0.6 % Neutrophils # (Auto) 5.21 1.4-6.5 K/uL Lymphocytes # (Auto) 2.05 1.2-3.4 K/uL Monocytes # (Auto) 1.16 0.11-0.59 K/uL Eosinophils # (Auto) 0.54 0-0.5 K/uL Basophils # (Auto) 0.06 0-0.2 K/uL RDW Standard Deviation 63.9 36.4-46.3 fL RDW Coefficient of Variation 18.7 11.5-14.5 % Immature Granulocyte % (Auto) 4.4 % Immature Granulocyte # (Auto) 0.42 0.00-0.02 K/uL Prothrombin Time 15.0 9.0-12.0 SECONDS Prothromb Time International Ratio 1.4 0.9-1.1 Activated Partial Thromboplast Time 33.2 21.0-31.0 SECONDS Partial Thromboplastin Ratio 1.3 Assessment and Plan 77F who presented to ER with complaints of worsening weakness to her legs. Found to be quite anemic with Hgb 5.7 and Hct 17.2 with INR of 6.7. Received 3 units of PRBC and found to have large hematoma over right hip. Has had wound vac placed by Dr. Delarosa. Patient had wound vac changed and was shown to have necrosis and odor at wound edges. Patient went for debridement of hematoma and wound vac was replaced. Patient has 3 different organisms growing in wound culture. ID have been consulted for further recommendations Acute blood loss Anemia sec to hematoma from fall while on anticoagulation Hgb stable at 8.7 S/p 4 units of PRBC FOBT Negative. No further signs of bleeding. anticoagulation restarted R hip 11 cm hematoma lateral to right hip and proximal femur sec to fall s/p debridement on 03/23/17 for necrosis at wound edges Continue wound vac On IV zosyn. Will consult ID on recommendation. will need PICC line. Afib Normal sinus Rhythm. c/w amiodarone c/w metoprolol and monitor HR INR 1.4 today resume coumadin 5mg daily R. Eye Conjunctivitis Polytrim Ophthalmic drops, 1 drop BID affected eye. Leg wound wound culture from 03/16 grew MSSA, originally got bactrim then switched to doxy Now on zosyn IV due to necrosis and odor at wound edges Repeat wound culture from 03/23 growing ecoli, strep and pseudomonas ID consult made and question as to whether patient needs to go on oysterman IV antibiotics or oral antibiotics Constipation Bowel regimen with colace daily and miralax No ab pain, nausea, vomiting LE Edema Pt was restarted on her home 20mg Lasix daily that was held due to PEYTON. Continue to monitor Lytes. PEYTON (resolved) Resolved with IV fluids Hyperthyroidism c/w Synthroid 75 mcg DVT Coumadin resumed SS Lives at home currently Patient with referral to [facility] Insurance authorization is pending Dispo: Med Surg FULL CODE Continued [facility] stay due to: multiple IV medications needed Discharge planning: rehab hospital Reviewed: Pt Seen/Exam by Me History no concerns overnight Constitutional: denies: fever Respiratory: negative: short of breath Cardiovascular: denies chest pain General Appearance: no apparent distress Respiratory: lungs clear, no respiratory distress Cardiovascular: regular rate, rhythm Extremities: other (right hip - wound vac in place) Neurologic/Psychiatric: alert, oriented x 3 Assessment/Plan Resident Physician Supervision Note: I independently interviewed and examined the patient and verified the wall history and physical, reviewed labs and image studies, discussed the case with the resident Dr. Neely and agree with the findings and care plan.
[2017-03-26 08:01] LABS: ANISOCYTOSIS PRESENT; COMPLETE YES; POLYCHROMASIA 1+
[2017-03-26] MEDS: TRIMETHOPRIM/POLYMYXIN B OP SCH ×2 (08:18→20:44)
[2017-03-26] MEDS: CYANOCOBALAMIN 500 MCG TAB (VIT B-12) PO SCH (08:19)
[2017-03-26] MEDS: DOCUSATE SODIUM 100 MG CAP PO SCH ×2 (08:19→20:46)
[2017-03-26] MEDS: ATORVASTATIN 20 MG TAB PO SCH (08:19)
[2017-03-26] MEDS: AMIODARONE 200 MG TAB PO SCH (08:20)
[2017-03-26] MEDS: MAGNESIUM OXIDE 400 MG TAB PO SCH (08:20)
[2017-03-26] MEDS: METOPROLOL TARTRATE 50 MG TAB PO SCH (08:20)
[2017-03-26] MEDS: POLYETHYLENE (MIRALAX) 17 GM PACK PO SCH (08:20)
[2017-03-26] MEDS: FUROSEMIDE 20 MG TAB PO SCH (08:21)
[2017-03-26 08:22] VITALS: BP 116/67; PULSE 66
--- NOTE | 2017-03-26 11:15 | Progress Note ---
Progress Note Date of Service Mar 26, 2017. Progress Note ID Consult Dictated #[id number] A/P: 1. Infected Hematoma right hip - polymicrobial 2. Leukocytosis -resolved -Continue zoysn, will need min 14 days -Will need picc line -Will need weekly cbc,cmp esr -Will add doxy for MSSA on initial culture -Can follow with ID in wound center as well and abx can be adjusted if needed -Ok for d/c from ID standpoint on IV zosyn and po doxy -Thank you
--- NOTE | 2017-03-26 11:43 | INFECT. DISEASE CONSULTATION ---
DATE OF CONSULTATION: 03/26/2017 DATE OF CONSULTATION: 03/26/2017 REQUESTING PHYSICIAN: Dr. Neely. HISTORY OF PRESENT ILLNESS: This is a 77-year-old female who was admitted to the hospital after she had progressively worsening weakness. She was found to be anemic and with a supratherapeutic INR. She had a fall one day prior to admission and she had fallen on her right hip. She did undergo a CAT scan in the Emergency Room which showed an 11 cm hematoma. She did have this debrided and a wound VAC was placed. She was followed by the wound care team here at the hospital. It was noted on the that she did have some necrotic tissue at the border of her wound and for this reason she was taken to the OR on the and underwent debridement. She did have a wound culture obtained on the which grew MSSA. It appears that she was started on Bactrim, but she does have a reported allergy to this and subsequently received doxycycline. She also had a wound culture obtained on the which grew E. coli which was resistant to sulbactam only, streptococcus species and pseudomonas, which was pansensitive. On the , she was placed on Zosyn and she remains on this. She did have a mild fever on the of 37.7 and on the of 37.8, but otherwise she has been afebrile this admission. Her VAC remains in place. Her white blood cell count was initially 25,000 on arrival to the hospital, but has decreased to 9. Her hemoglobin was as low as 5.7 on arrival to the hospital. Infectious diseases was consulted for antibiotic recommendations. She states she is due to be transferred to [facility] possibly later today. She currently denies any fevers or chills. She states she is tolerating her antibiotics well. She has no nausea, vomiting, diarrhea, chest pain, shortness of breath or cough. She denies any pain in the hip and states overall she is feeling much better. Her remaining review of systems is unremarkable. PAST MEDICAL HISTORY: Significant for Afib, diverticulitis, cholecystectomy, hernia repair, hysterectomy, and now hematoma evacuation of the right hip. FAMILY HISTORY: Noncontributory. SOCIAL HISTORY: Negative for tobacco use, alcohol use or drug use. ALLERGIES: SHE HAS ALLERGIES TO QUINOLONES AND BACTRIM. CURRENT MEDICATIONS: Include Coumadin, Zosyn, Lasix, eyedrops, magnesium, MiraLax, Colace, Lopressor, Ultram, amiodarone, Lipitor, vitamin B12, Synthroid, Tylenol. PHYSICAL EXAMINATION: VITAL SIGNS: She is afebrile, pulse 66, respiratory rate 20, blood pressure 116/67, oxygen saturation is 94-97% on room air. GENERAL: She is awake, alert and oriented x3. She is in no acute distress. HEAD, EYES, EARS, NOSE, AND THROAT: Mucous membranes are moist. Extraocular muscles are intact. HEART: Regular. LUNGS: Clear. ABDOMEN: Soft. There is no edema. SKIN: Without rash. Right hip wound VAC is in place. There is no surrounding erythema. LABORATORY STUDIES: CBC today reveals a white blood cell count of 9.4, hemoglobin 8.7, platelets 349. Chemistry panel reveals a sodium of 138, potassium 4.1, chloride 103, bicarbonate 27, BUN 18, creatinine 1.0, glucose is 87. Again, wound culture from the 7th is growing MSSA. Wound culture from the 14th is growing E. coli streptococcus species which has not been identified and pseudomonas. CT is as above. ASSESSMENT AND PLAN: 1. Infected right hip hematoma status post debridement and VAC placement. 2. Leukocytosis, resolved. At this time she will be continued on Zosyn as this will treat the strep species, the E. coli as well as pseudomonas there are no oral options to treat pseudomonas as she does have a fluoroquinolone allergy. She did grow MSSA initially but did not grow from the 2nd culture; however, doxycycline will be added back to her antibiotic regimen for treatment of this. She does plan to follow with the wound care center upon discharge from the hospital and she can also follow with infectious diseases at this time. I would give a minimum of 14 days of antibiotics with weekly laboratory studies and she can be followed in the wound care center and antibiotic duration can be adjusted if necessary. Thank you for this consultation.
--- NOTE | 2017-03-26 15:40 | DIAGNOSTIC IMAGING REPORT ---
CHEST ONE VIEW PORTABLE HISTORY: 77 years-old Female picc placement right arm status post placement of a right-sided PICC COMPARISON: Chest radiograph 03/18/2017 TECHNIQUE: AP view of the chest FINDINGS: Cardiac silhouette is moderately enlarged, unchanged. There are chronic reticular opacities of the lung bases suggesting areas of scarring. Pleural parenchymal scarring of the lung bases is also redemonstrated. There is atherosclerosis of the aorta. There is no pneumothorax, pleural effusion, focal airspace consolidation or overt pulmonary edema. There has been interval placement of a right-sided PICC with distal tip within the region of the mid SVC. Bones appear grossly intact. IMPRESSION: Status post placement of a right-sided PICC with distal tip terminating in the region of the mid SVC. No postprocedural pneumothorax. The above report was generated using voice recognition software. It may contain grammatical, syntax or spelling errors. Electronically signed by: Graham Charles M.D. 03/26/2017 3:39 PM Dictated Date/Time: 03/26/2017 3:36 PM
[2017-03-26 16:00] VITALS: O2SAT 94
[2017-03-26] MEDS: WARFARIN SOD 5 MG TAB PO SCH (16:52)
[2017-03-26 17:14] LABS: INR 1.4 (0.9-1.1); PROTHROMBIN TIME (PATIENT) 15.4 SECONDS (9.0-12.0)
[2017-03-26] MEDS: DOXYCYCLINE HYCLATE 100 MG CAP PO SCH (20:45)
[2017-03-26 23:27] VITALS: BP 112/54; PULSE 63; TEMP 37.2; O2SAT 97
[2017-03-27] MEDS: PIPERACILL/TAZOBAC IV 3.375 GM in DEXTROSE 5% 100ML 100 ML IV SCH ×3 (04:49→21:02)
[2017-03-27] MEDS: LEVOTHYROXINE 75 MCG TAB PO SCH (06:20)
[2017-03-27 07:08] VITALS: BP 121/62; PULSE 66; TEMP 36.8; O2SAT 97
[2017-03-27] MEDS: POLYETHYLENE (MIRALAX) 17 GM PACK PO SCH ×2 (08:12→08:18)
[2017-03-27] MEDS: DOXYCYCLINE HYCLATE 100 MG CAP PO SCH ×2 (08:12→21:03)
[2017-03-27] MEDS: CYANOCOBALAMIN 500 MCG TAB (VIT B-12) PO SCH (08:12)
[2017-03-27] MEDS: AMIODARONE 200 MG TAB PO SCH (08:13)
[2017-03-27] MEDS: TRIMETHOPRIM/POLYMYXIN B OP SCH ×2 (08:13→21:03)
[2017-03-27] MEDS: DOCUSATE SODIUM 100 MG CAP PO SCH ×2 (08:13→21:03)
[2017-03-27] MEDS: FUROSEMIDE 20 MG TAB PO SCH (08:13)
[2017-03-27] MEDS: MAGNESIUM OXIDE 400 MG TAB PO SCH (08:13)
[2017-03-27] MEDS: ATORVASTATIN 20 MG TAB PO SCH (08:13)
[2017-03-27] MEDS: METOPROLOL TARTRATE 50 MG TAB PO SCH (08:13)
[2017-03-27 09:05] LABS: BASO % 0.5 %; BASO ABS # 0.05 K/uL (0-0.2); COMPLETE YES; EOS % 4.9 %; IG% 4.4 %; LYMPH ABS # 2.19 K/uL (1.2-3.4); MEAN CELL VOLUME 94.8 fL (80-100); MEAN CORPUSCULAR HEMOGLOBIN 29.1 pg (25-34); MEAN CORPUSCULAR HGB CONC 30.6 g/dl (32-36); MEAN PLATELET VOLUME 8.9 fL (7.4-10.4); MONO % 8.1 %; NEUT % 59.1 %; PLATELET COUNT 451 K/uL (130-400); RED BLOOD COUNT 3.27 M/uL (4.2-5.4); WHITE BLOOD COUNT 9.52 K/uL (4.8-10.8)
[2017-03-27 09:13] LABS: INR 1.5 (0.9-1.1); PARTIAL THROMBOPLASTIN RATIO 1.3; PROTHROMBIN TIME (PATIENT) 16.8 SECONDS (9.0-12.0)
--- NOTE | 2017-03-27 14:27 | Family Medicine Progress Note ---
Progress Note Date of Service Mar 27, 2017. Subjective Pt evaluation today including: conversation w/ patient, physical exam, chart review, lab review, review of studies, review of inpatient medication list Pain: denies PO Intake: adequate Voiding: no voiding problems No acute events overnight, Patient feeling stronger. She reports soft stool x3 today. Denies pain. Fatigue weakness improving. reports productive cough. dnies CP, SOB, palpitation, calf tenderness Constitutional: No fever, No chills Respiratory: + cough, + sputum, No wheezing, No shortness of breath Cardiovascular: No chest pain, No edema, No palpitations Abdomen: No pain, No nausea, No vomiting Female : No dysuria, No urinary frequency, No hematuria Skin: + problem reported (Right LE wound with wound vacc), No rash, No itch Medications Current Inpatient Medications Medications (Trade) Dose Ordered Sig/Khris Route Start Time Stop Time Status Last Admin Dose Admin Acetaminophen (Tylenol Tab) 650 mg Q4H PRN PO 03/12/17 22:15 04/11/17 22:14 03/15/17 07:50 650 MG Amiodarone HCl (Cordarone Tab) 200 mg DAILY PO 03/13/17 09:00 04/12/17 08:59 03/27/17 08:13 200 MG Atorvastatin Calcium (Lipitor Tab) 20 mg DAILY PO 03/13/17 09:00 04/12/17 08:59 03/27/17 08:13 20 MG Cyanocobalamin (Vitamin B-12 Tab) 1,000 mcg DAILY PO 03/13/17 09:00 04/12/17 08:59 03/27/17 08:12 1,000 MCG Levothyroxine Sodium (Synthroid Tab) 75 mcg DAILYBB PO 03/13/17 06:00 04/12/17 05:59 03/27/17 06:20 75 MCG Acetaminophen 100 ml @ 400 mls/hr Q8H PRN IV 03/12/17 22:15 04/11/17 22:14 03/24/17 17:34 400 MLS/HR Tramadol HCl (Ultram Tab) 50 mg Q4H PRN PO 03/15/17 02:00 04/14/17 01:59 03/22/17 11:13 50 MG Metoprolol Tartrate (Lopressor Tab) 50 mg DAILY PO 03/16/17 09:00 04/15/17 08:59 03/27/17 08:13 50 MG Docusate Sodium (coLACE CAP) 100 mg BID PO 03/16/17 21:00 04/15/17 20:59 03/27/17 08:13 100 MG Polyethylene (Miralax Powder Packet) 17 gm DAILY PO 03/18/17 09:00 04/17/17 08:59 03/27/17 08:12 17 GM Magnesium Oxide (Mag-Ox Tab) 400 mg DAILY PO 03/19/17 09:00 04/18/17 08:59 03/27/17 08:13 400 MG Polymyxin/ Trimethoprim Sulfate (Polytrim Oph Soln) 1 drops BID OP 03/20/17 21:00 04/19/17 20:59 03/27/17 08:13 1 DROPS Furosemide (Lasix Tab) 20 mg DAILY PO 03/21/17 09:00 04/20/17 08:59 03/27/17 08:13 20 MG Piperacillin Sod/ Tazobactam Sod 3.375 gm/Dextrose 115 ml @ 28.75 mls/ hr Q8H IV 03/23/17 16:00 04/02/17 15:59 03/27/17 13:05 28.75 MLS/HR Piperacillin Sod/ Tazobactam Sod (Consult) 1 ea UD PRN N/A 03/23/17 09:45 04/22/17 09:44 Warfarin Sodium (Coumadin Tab) 5 mg DAILY@16 PO 03/25/17 16:00 04/24/17 15:59 03/26/17 16:52 5 MG Doxycycline Hyclate (Vibramycin Cap) 100 mg BID PO 03/26/17 21:00 04/05/17 20:59 03/27/17 08:12 100 MG Heparin Sodium (Porcine) (Heparin 10 Unit/ ml 5 ml Flush) 5 ml PRN PRN FLUSH 03/26/17 16:15 04/25/17 16:14 Objective Vital Signs Date Time Temp Pulse Resp B/P (MAP) Pulse Ox O2 Delivery O2 Flow Rate FiO2 03/27/17 10:33 Room Air 03/27/17 07:08 36.8 66 16 121/62 (81) 97 Room Air 03/27/17 00:05 Room Air 03/26/17 23:27 37.2 63 18 112/54 (73) 97 Room Air 03/26/17 16:00 94 Room Air Physical Exam Notes: General Appearance: WD/WN, no apparent distress Neck: no adenopathy, no JVD, no carotid bruits Respiratory/Chest: CTA bhupendra, no respiratory distress, no accessory muscle use Cardiovascular: normal S1, S2 regular rate, rhythm, no edema, Abdomen: normal bowel sounds, non tender, soft Extremities: non-tender, 1+ pedal edema Rt hip Wound vacc in place Neurologic/Psychiatric: alert, oriented x 3, normal affect Laboratory Results Results Past 24 Hours Test 03/26/17 16:44 03/27/17 08:29 Range/Units Prothrombin Time 15.4 16.8 9.0-12.0 SECONDS Prothromb Time International Ratio 1.4 1.5 0.9-1.1 White Blood Count 9.52 4.8-10.8 K/uL Red Blood Count 3.27 4.2-5.4 M/uL Hemoglobin 9.5 12.0-16.0 g/dL Hematocrit 31.0 37-47 % Mean Corpuscular Volume 94.8 80-100 fL Mean Corpuscular Hemoglobin 29.1 25-34 pg Mean Corpuscular Hemoglobin Concent 30.6 32-36 g/dl Platelet Count 451 130-400 K/uL Mean Platelet Volume 8.9 7.4-10.4 fL Neutrophils (%) (Auto) 59.1 % Lymphocytes (%) (Auto) 23.0 % Monocytes (%) (Auto) 8.1 % Eosinophils (%) (Auto) 4.9 % Basophils (%) (Auto) 0.5 % Neutrophils # (Auto) 5.62 1.4-6.5 K/uL Lymphocytes # (Auto) 2.19 1.2-3.4 K/uL Monocytes # (Auto) 0.77 0.11-0.59 K/uL Eosinophils # (Auto) 0.47 0-0.5 K/uL Basophils # (Auto) 0.05 0-0.2 K/uL RDW Standard Deviation 64.1 36.4-46.3 fL RDW Coefficient of Variation 18.7 11.5-14.5 % Immature Granulocyte % (Auto) 4.4 % Immature Granulocyte # (Auto) 0.42 0.00-0.02 K/uL Activated Partial Thromboplast Time 33.1 21.0-31.0 SECONDS Partial Thromboplastin Ratio 1.3 Assessment and Plan 77 yo F hx of Afib p/w progressive LE weakness with Hx of fall with subsquent Right hip hematroma formation complicated by necrotic infection, s/p debridement with wound vacc placement Acute blood loss Anemia sec to hematoma on Coumadin at home Hgb improving (8.5-->9.5) S/p 4 units of PRBC FOBT Negative. Recheck CBC Hematoma Rt Hip: secoandry to Hx of fall s/p debridement (03/23/17 )of necrotic tissue Continue wound vac s/p PICC line placement Continue Zosyn, day 5 total 14 days of abx treatment per ID [facility]c Paroxysmal Afib currently stable, NS Cont amiodarone Cont Metoprolol and monitor HR Cont Coumadin 5mg daily R. Eye Conjunctivitis Continue Polytrim Ophthalmic drops Leg wound wound culture from 03/16: MSSA, Repeat wound culture from 03/23 : Ecoli, strep and pseudomonas Continue IV Zosyn duration of abx therapy as above Constipation Continue Colace daily and miralax LE Edema Continue Lasix PEYTON -prerenal -resolved -monitor prp DVT prophylaxis warfarin Disposition: awaiting SNF placement Continued [facility] stay due to: home environment unsafe for pt Discharge planning: [facility] Resident Tracking Resident Involvement: Resident Care Provided Care Provided: Adult Hospital Medicine Reviewed: Pt Seen/Exam by Me History no new concerns sitting in chair comfortably Constitutional: denies: fever Respiratory: negative: short of breath Cardiovascular: denies chest pain General Appearance: no apparent distress Respiratory: lungs clear, no respiratory distress Cardiovascular: regular rate, rhythm Gastrointestinal: soft Neurologic/Psychiatric: alert, oriented x 3 Skin Characteristics: other (right hip wound vac in place) Assessment/Plan Resident Physician Supervision Note: I independently interviewed and examined the patient and verified the wall history and physical, reviewed labs and image studies, discussed the case with the resident Dr. Ascencio and agree with the findings and care plan.
[2017-03-27 15:19] VITALS: BP 98/61; PULSE 62; TEMP 36.8; O2SAT 98
[2017-03-27] MEDS: WARFARIN SOD 5 MG TAB PO SCH (16:47)
[2017-03-27 23:31] VITALS: BP 115/56; PULSE 72; TEMP 37.1; O2SAT 96
[2017-03-28] MEDS: PIPERACILL/TAZOBAC IV 3.375 GM in DEXTROSE 5% 100ML 100 ML IV SCH ×3 (04:27→20:05)
[2017-03-28] MEDS: LEVOTHYROXINE 75 MCG TAB PO SCH (05:26)
[2017-03-28 07:05] VITALS: BP 129/65; PULSE 66; TEMP 36.7; O2SAT 96
[2017-03-28 07:50] LABS: HEMATOCRIT 27.9 % (37-47); MEAN CELL VOLUME 94.6 fL (80-100); MEAN CORPUSCULAR HEMOGLOBIN 30.5 pg (25-34); MEAN CORPUSCULAR HGB CONC 32.3 g/dl (32-36); MEAN PLATELET VOLUME 8.7 fL (7.4-10.4); PLATELET COUNT 378 K/uL (130-400); RED BLOOD COUNT 2.95 M/uL (4.2-5.4); WHITE BLOOD COUNT 9.47 K/uL (4.8-10.8)
[2017-03-28 07:57] LABS: INR 1.9 (0.9-1.1); PARTIAL THROMBOPLASTIN RATIO 1.4; PROTHROMBIN TIME (PATIENT) 20.4 SECONDS (9.0-12.0)
[2017-03-28 08:22] LABS: BASO % 0.7 %; BASO ABS # 0.07 K/uL (0-0.2); COMPLETE YES; EOS % 5.6 %; IG% 7.4 %; LYMPH % 24.3 %; MONO % 11.4 %; NEUT % 50.6 %; POLYCHROMASIA 1+
[2017-03-28 08:24] LABS: BUN/CREATININE RATIO 15.7 (10-20); CALCIUM 8.6 mg/dl (8.5-10.1); CREATININE 0.91 mg/dl (0.60-1.20)
[2017-03-28] MEDS: DOCUSATE SODIUM 100 MG CAP PO SCH ×2 (08:58→20:05)
[2017-03-28] MEDS: AMIODARONE 200 MG TAB PO SCH (08:59)
[2017-03-28] MEDS: DOXYCYCLINE HYCLATE 100 MG CAP PO SCH ×2 (08:59→20:12)
[2017-03-28] MEDS: CYANOCOBALAMIN 500 MCG TAB (VIT B-12) PO SCH (08:59)
[2017-03-28] MEDS: TRIMETHOPRIM/POLYMYXIN B OP SCH ×2 (09:00→20:07)
[2017-03-28] MEDS: METOPROLOL TARTRATE 50 MG TAB PO SCH (09:00)
[2017-03-28] MEDS: ATORVASTATIN 20 MG TAB PO SCH (09:00)
[2017-03-28] MEDS: POLYETHYLENE (MIRALAX) 17 GM PACK PO SCH (09:00)
[2017-03-28] MEDS: MAGNESIUM OXIDE 400 MG TAB PO SCH (09:01)
[2017-03-28] MEDS: FUROSEMIDE 20 MG TAB PO SCH (09:01)
--- NOTE | 2017-03-28 09:54 | Family Medicine Progress Note ---
Progress Note Date of Service Mar 28, 2017. Subjective Pt evaluation today including: conversation w/ patient, physical exam, chart review, lab review, review of studies, review of inpatient medication list Pain: denies pain PO Intake: adequate Voiding: no voiding problems No acute events. feels better in general. She denies pain. She reports generalized weakness persists but has improved. NO CP , Palpitation, SOB, calf tenderness. Medications Current Inpatient Medications Medications (Trade) Dose Ordered Sig/Khris Route Start Time Stop Time Status Last Admin Dose Admin Acetaminophen (Tylenol Tab) 650 mg Q4H PRN PO 03/12/17 22:15 04/11/17 22:14 03/15/17 07:50 650 MG Amiodarone HCl (Cordarone Tab) 200 mg DAILY PO 03/13/17 09:00 04/12/17 08:59 03/28/17 08:59 200 MG Atorvastatin Calcium (Lipitor Tab) 20 mg DAILY PO 03/13/17 09:00 04/12/17 08:59 03/28/17 09:00 20 MG Cyanocobalamin (Vitamin B-12 Tab) 1,000 mcg DAILY PO 03/13/17 09:00 04/12/17 08:59 03/28/17 08:59 1,000 MCG Levothyroxine Sodium (Synthroid Tab) 75 mcg DAILYBB PO 03/13/17 06:00 04/12/17 05:59 03/28/17 05:26 75 MCG Acetaminophen 100 ml @ 400 mls/hr Q8H PRN IV 03/12/17 22:15 04/11/17 22:14 03/24/17 17:34 400 MLS/HR Tramadol HCl (Ultram Tab) 50 mg Q4H PRN PO 03/15/17 02:00 04/14/17 01:59 03/22/17 11:13 50 MG Metoprolol Tartrate (Lopressor Tab) 50 mg DAILY PO 03/16/17 09:00 04/15/17 08:59 03/28/17 09:00 50 MG Docusate Sodium (coLACE CAP) 100 mg BID PO 03/16/17 21:00 04/15/17 20:59 03/27/17 21:03 100 MG Polyethylene (Miralax Powder Packet) 17 gm DAILY PO 03/18/17 09:00 04/17/17 08:59 03/27/17 08:12 17 GM Magnesium Oxide (Mag-Ox Tab) 400 mg DAILY PO 03/19/17 09:00 04/18/17 08:59 03/28/17 09:01 400 MG Polymyxin/ Trimethoprim Sulfate (Polytrim Oph Soln) 1 drops BID OP 03/20/17 21:00 04/19/17 20:59 03/27/17 21:03 1 DROPS Furosemide (Lasix Tab) 20 mg DAILY PO 03/21/17 09:00 04/20/17 08:59 03/28/17 09:01 20 MG Piperacillin Sod/ Tazobactam Sod 3.375 gm/Dextrose 115 ml @ 28.75 mls/ hr Q8H IV 03/23/17 16:00 04/02/17 15:59 03/28/17 04:27 28.75 MLS/HR Piperacillin Sod/ Tazobactam Sod (Consult) 1 ea UD PRN N/A 03/23/17 09:45 04/22/17 09:44 Warfarin Sodium (Coumadin Tab) 5 mg DAILY@16 PO 03/25/17 16:00 04/24/17 15:59 03/27/17 16:47 5 MG Doxycycline Hyclate (Vibramycin Cap) 100 mg BID PO 03/26/17 21:00 04/05/17 20:59 03/28/17 08:59 100 MG Heparin Sodium (Porcine) (Heparin 10 Unit/ ml 5 ml Flush) 5 ml PRN PRN FLUSH 03/26/17 16:15 04/25/17 16:14 Objective Vital Signs Date Time Temp Pulse Resp B/P (MAP) Pulse Ox O2 Delivery O2 Flow Rate FiO2 03/28/17 07:05 36.7 66 16 129/65 (86) 96 03/28/17 00:05 Room Air 03/27/17 23:31 37.1 72 18 115/56 (75) 96 Room Air 03/27/17 20:05 Room Air 03/27/17 16:45 Room Air 03/27/17 15:19 36.8 62 16 98/61 (73) 98 03/27/17 10:33 Room Air Physical Exam Notes: General Appearance: WD/WN, no apparent distress Neck: no adenopathy, no JVD, no carotid bruits Respiratory/Chest: CTA bhupendra, no respiratory distress, no accessory muscle use Cardiovascular: normal S1, S2 regular rate, rhythm, no edema, Abdomen: normal bowel sounds, non tender, soft, nondistended Extremities: non-tender, 1+ pedal edema Rt hip Wound vacc in place Neurologic/Psychiatric: alert, oriented x 3, normal affect Laboratory Results Results Past 24 Hours Test 03/28/17 07:26 Range/Units White Blood Count 9.47 4.8-10.8 K/uL Red Blood Count 2.95 4.2-5.4 M/uL Hemoglobin 9.0 12.0-16.0 g/dL Hematocrit 27.9 37-47 % Mean Corpuscular Volume 94.6 80-100 fL Mean Corpuscular Hemoglobin 30.5 25-34 pg Mean Corpuscular Hemoglobin Concent 32.3 32-36 g/dl Platelet Count 378 130-400 K/uL Mean Platelet Volume 8.7 7.4-10.4 fL Neutrophils (%) (Auto) 50.6 % Lymphocytes (%) (Auto) 24.3 % Monocytes (%) (Auto) 11.4 % Eosinophils (%) (Auto) 5.6 % Basophils (%) (Auto) 0.7 % Neutrophils # (Auto) 4.79 1.4-6.5 K/uL Lymphocytes # (Auto) 2.30 1.2-3.4 K/uL Monocytes # (Auto) 1.08 0.11-0.59 K/uL Eosinophils # (Auto) 0.53 0-0.5 K/uL Basophils # (Auto) 0.07 0-0.2 K/uL RDW Standard Deviation 64.4 36.4-46.3 fL RDW Coefficient of Variation 18.7 11.5-14.5 % Immature Granulocyte % (Auto) 7.4 % Immature Granulocyte # (Auto) 0.70 0.00-0.02 K/uL Polychromasia 1+ Prothrombin Time 20.4 9.0-12.0 SECONDS Prothromb Time International Ratio 1.9 0.9-1.1 Activated Partial Thromboplast Time 36.4 21.0-31.0 SECONDS Partial Thromboplastin Ratio 1.4 Sodium Level 138 136-145 mmol/L Potassium Level 4.0 3.5-5.1 mmol/L Chloride Level 106 98-107 mmol/L Carbon Dioxide Level 26 21-32 mmol/L Anion Gap 5.0 3-11 mmol/L Blood Urea Nitrogen 14 7-18 mg/dl Creatinine 0.91 0.60-1.20 mg/dl Est Creatinine Clear Calc Drug Dose 43.1 ml/min Estimated GFR () 69.5 Estimated GFR (Non- 60.0 BUN/Creatinine Ratio 15.7 10-20 Random Glucose 86 70-99 mg/dl Calcium Level 8.6 8.5-10.1 mg/dl Assessment and Plan 77 yo F hx of Afib p/w progressive LE weakness with Hx of fall with subsquent Right hip hematoma formation complicated by necrotic infection, s/p debridement with wound vacc placement Acute blood loss Anemia: sec to hematoma on Coumadin at home Hgb stable(8.5-->9.5-->9) S/p 4 units of PRBC FOBT Negative. Recheck CBC Hematoma Rt Hip: secoandry to Hx of fall s/p debridement (03/23/17 )of necrotic tissue Continue wound vac s/p PICC line placement Continue Zosyn, day 6 total 14 days of abx treatment per ID F/u with Wound care center following d/c Paroxysmal Afib currently stable, NS Cont amiodarone Cont Metoprolol and monitor HR Cont Coumadin 5mg daily R. Eye Conjunctivitis Continue Polytrim Ophthalmic drops Leg wound wound culture from 03/16: MSSA, Repeat wound culture from 03/23 : Ecoli, strep and pseudomonas Continue IV Zosyn duration of abx therapy as above Constipation Continue Colace daily and miralax LE Edema Continue Lasix PEYTON -prerenal -resolved -monitor prp DVT prophylaxis warfarin Disposition: awaiting SNF placement Continued [facility] stay due to: home environment unsafe for pt Discharge planning: custodial facility Resident Tracking Resident Involvement: Resident Care Provided Care Provided: Adult Hospital Medicine Reviewed: Pt Seen/Exam by Me History no new concerns. sitting in chair comfortably. Constitutional: denies: fever Respiratory: negative: short of breath Cardiovascular: denies chest pain General Appearance: no apparent distress Respiratory: lungs clear, no respiratory distress Cardiovascular: regular rate, rhythm Neurologic/Psychiatric: alert, oriented x 3 Skin Characteristics: rash (right hip wound - surrounding erythema resolved. wound vac in place) Assessment/Plan Resident Physician Supervision Note: I independently interviewed and examined the patient and verified the wall history and physical, reviewed labs and image studies, discussed the case with the resident Dr. Ascencio and agree with the findings and care plan.
[2017-03-28 14:37] VITALS: BP 110/61; PULSE 65; TEMP 36.4; O2SAT 96
[2017-03-28] MEDS: WARFARIN SOD 5 MG TAB PO SCH (16:05)
[2017-03-28 23:37] VITALS: BP 127/55; PULSE 63; TEMP 36.8; O2SAT 95
[2017-03-29] MEDS: PIPERACILL/TAZOBAC IV 3.375 GM in DEXTROSE 5% 100ML 100 ML IV SCH ×3 (04:13→20:39)
[2017-03-29] MEDS: LEVOTHYROXINE 75 MCG TAB PO SCH (06:15)
[2017-03-29 07:35] VITALS: BP 128/60; PULSE 61; TEMP 37; O2SAT 99
[2017-03-29] MEDS: DOCUSATE SODIUM 100 MG CAP PO SCH ×2 (09:34→20:43)
[2017-03-29] MEDS: TRIMETHOPRIM/POLYMYXIN B OP SCH ×2 (09:35→20:44)
[2017-03-29] MEDS: ATORVASTATIN 20 MG TAB PO SCH (09:35)
[2017-03-29] MEDS: POLYETHYLENE (MIRALAX) 17 GM PACK PO SCH (09:35)
[2017-03-29] MEDS: MAGNESIUM OXIDE 400 MG TAB PO SCH (09:35)
[2017-03-29] MEDS: DOXYCYCLINE HYCLATE 100 MG CAP PO SCH ×2 (09:36→20:44)
[2017-03-29] MEDS: CYANOCOBALAMIN 500 MCG TAB (VIT B-12) PO SCH (09:36)
[2017-03-29] MEDS: METOPROLOL TARTRATE 50 MG TAB PO SCH (09:37)
[2017-03-29] MEDS: AMIODARONE 200 MG TAB PO SCH (09:37)
[2017-03-29] MEDS: FUROSEMIDE 20 MG TAB PO SCH (09:38)
--- NOTE | 2017-03-29 10:26 | Progress Note ---
Subjective Date of Service: Mar 29, 2017. Subjective pt in room with pt, vac remains. tolerating abx. c diff negative. no complaints. awating placement to snf. Problem List Medical Problems: (1) Acute renal failure Status: Acute (2) Anemia Status: Acute (3) Contusion of hip Status: Acute (4) Fall Status: Acute (5) Hip hematoma, right Status: Acute (6) Leukocytosis Status: Acute (7) Palpitations Status: Acute (8) Stress at home Status: Acute (9) Supratherapeutic INR Status: Acute (10) UTI (urinary tract infection) Status: Acute Objective Vital Signs Date Time Temp Pulse Resp B/P (MAP) Pulse Ox O2 Delivery O2 Flow Rate FiO2 03/29/17 09:45 Room Air 03/29/17 07:35 37.0 61 16 128/60 (82) 99 Room Air 03/29/17 00:05 Room Air 03/28/17 23:37 36.8 63 18 127/55 (79) 95 Room Air 03/28/17 20:05 Room Air 03/28/17 15:50 Room Air 03/28/17 14:37 36.4 65 16 110/61 (77) 96 Room Air Physical Exam General Appearance: WD/WN, no apparent distress Neck: supple Respiratory/Chest: normal breath sounds, no respiratory distress Neurologic/Psychiatric: alert Skin: normal color Laboratory Results Item Value Date Time Gram Stain - Final Complete 03/23/17 1130 Drainage-Deep Hip , Right Gram Stain - Final Complete 03/16/17 1145 Drainage-Deep Hip , Right Assessment and Plan (1) Infection of wound hematoma Assessment & Plan: continue abx x 14 more days can follow with ID post d/c in wound center ok for d/c when otherwise stable. Continued [facility] stay due to: home environment unsafe for pt Discharge planning: halfway facility
--- NOTE | 2017-03-29 14:13 | Progress Note ---
Subjective Date of Service: Mar 29, 2017. Subjective 77 yo female reports doing well. She has no complaints today. She states that she is waiting for placement. Problem List Medical Problems: (1) Acute renal failure Status: Acute (2) Anemia Status: Acute (3) Contusion of hip Status: Acute (4) Fall Status: Acute (5) Hip hematoma, right Status: Acute (6) Leukocytosis Status: Acute (7) Palpitations Status: Acute (8) Stress at home Status: Acute (9) Supratherapeutic INR Status: Acute (10) UTI (urinary tract infection) Status: Acute Review of Systems Constitutional: No fever, No chills Eyes: No worsening of vision ENT: No hearing loss, No unusual epistaxis Respiratory: No cough, No sputum Cardiac: No chest pain, No orthopnea Abdomen: No pain, No nausea Neurologic: No memory loss, No paralysis Psychiatric: No depression symptoms, No anhedonism Heme: + abnormal bleeding/bruising Endo: + fatigue Skin: No rash All Other Systems: Reviewed and Negative Medications Current Inpatient Medications Medications (Trade) Dose Ordered Sig/Khris Route Start Time Stop Time Status Last Admin Dose Admin Acetaminophen (Tylenol Tab) 650 mg Q4H PRN PO 03/12/17 22:15 04/11/17 22:14 03/15/17 07:50 650 MG Amiodarone HCl (Cordarone Tab) 200 mg DAILY PO 03/13/17 09:00 04/12/17 08:59 03/29/17 09:37 200 MG Atorvastatin Calcium (Lipitor Tab) 20 mg DAILY PO 03/13/17 09:00 04/12/17 08:59 03/29/17 09:35 20 MG Cyanocobalamin (Vitamin B-12 Tab) 1,000 mcg DAILY PO 03/13/17 09:00 04/12/17 08:59 03/29/17 09:36 1,000 MCG Levothyroxine Sodium (Synthroid Tab) 75 mcg DAILYBB PO 03/13/17 06:00 04/12/17 05:59 03/30/17 06:02 75 MCG Acetaminophen 100 ml @ 400 mls/hr Q8H PRN IV 03/12/17 22:15 04/11/17 22:14 03/24/17 17:34 400 MLS/HR Tramadol HCl (Ultram Tab) 50 mg Q4H PRN PO 03/15/17 02:00 04/14/17 01:59 03/22/17 11:13 50 MG Metoprolol Tartrate (Lopressor Tab) 50 mg DAILY PO 03/16/17 09:00 04/15/17 08:59 03/29/17 09:37 50 MG Docusate Sodium (coLACE CAP) 100 mg BID PO 03/16/17 21:00 04/15/17 20:59 03/27/17 21:03 100 MG Polyethylene (Miralax Powder Packet) 17 gm DAILY PO 03/18/17 09:00 04/17/17 08:59 03/27/17 08:12 17 GM Magnesium Oxide (Mag-Ox Tab) 400 mg DAILY PO 03/19/17 09:00 04/18/17 08:59 03/29/17 09:35 400 MG Polymyxin/ Trimethoprim Sulfate (Polytrim Oph Soln) 1 drops BID OP 03/20/17 21:00 04/19/17 20:59 03/29/17 09:35 1 DROPS Furosemide (Lasix Tab) 20 mg DAILY PO 03/21/17 09:00 04/20/17 08:59 03/29/17 09:38 20 MG Piperacillin Sod/ Tazobactam Sod 3.375 gm/Dextrose 115 ml @ 28.75 mls/ hr Q8H IV 03/23/17 16:00 04/02/17 15:59 03/30/17 03:52 28.75 MLS/HR Piperacillin Sod/ Tazobactam Sod (Consult) 1 ea UD PRN N/A 03/23/17 09:45 04/22/17 09:44 Warfarin Sodium (Coumadin Tab) 5 mg DAILY@16 PO 03/25/17 16:00 04/24/17 15:59 03/29/17 16:25 5 MG Doxycycline Hyclate (Vibramycin Cap) 100 mg BID PO 03/26/17 21:00 04/05/17 20:59 03/29/17 20:44 100 MG Heparin Sodium (Porcine) (Heparin 10 Unit/ ml 5 ml Flush) 5 ml PRN PRN FLUSH 03/26/17 16:15 04/25/17 16:14 03/30/17 01:19 5 ML Objective Vital Signs Date Time Temp Pulse Resp B/P (MAP) Pulse Ox O2 Delivery O2 Flow Rate FiO2 03/29/17 09:45 Room Air 03/29/17 07:35 37.0 61 16 128/60 (82) 99 Room Air 03/29/17 00:05 Room Air 03/28/17 23:37 36.8 63 18 127/55 (79) 95 Room Air 03/28/17 20:05 Room Air 03/28/17 15:50 Room Air 03/28/17 14:37 36.4 65 16 110/61 (77) 96 Room Air Physical Exam Comments: General Appearance: WD/WN, no apparent distress Neck: no adenopathy, no JVD, no carotid bruits Respiratory/Chest: CTA bhupendra, no respiratory distress, no accessory muscle use Cardiovascular: normal S1, S2 regular rate, rhythm, no edema, Abdomen: normal bowel sounds, non tender, soft, nondistended Extremities: non-tender, 1+ pedal edema Rt hip Wound vacc in place Neurologic/Psychiatric: alert, oriented x 3, normal affect Assessment and Plan 77 yo F hx of Afib p/w progressive LE weakness with Hx of fall with subsequent Right hip hematoma formation complicated by necrotic infection, s/p debridement with wound vacc placement Acute blood loss Anemia: sec to hematoma on Coumadin at home Hgb stable(8.5-->9.5-->9) S/p 4 units of PRBC FOBT Negative. Recheck CBC in AM Hematoma Rt Hip: secoandry to Hx of fall s/p debridement (03/23/17 )of necrotic tissue Continue wound vac s/p PICC line placement Continue Zosyn, day 7 total 14 days of abx treatment per ID F/u with Wound care center following d/c Paroxysmal Afib currently stable, NS Cont amiodarone Cont Metoprolol and monitor HR Cont Coumadin 5mg daily R. Eye Conjunctivitis Continue Polytrim Ophthalmic drops Leg wound wound culture from 03/16: MSSA, Repeat wound culture from 03/23 : Ecoli, strep and pseudomonas Continue IV Zosyn duration of abx therapy as above Constipation Continue Colace daily and miralax LE Edema Continue Lasix PEYTON -prerenal -resolved -monitor prp DVT prophylaxis warfarin Disposition: awaiting SNF placement Continued [facility] stay due to: home environment unsafe for pt Discharge planning: alf facility
[2017-03-29 15:10] VITALS: BP 111/71; PULSE 66; TEMP 36.2; O2SAT 96
[2017-03-29] MEDS: WARFARIN SOD 5 MG TAB PO SCH (16:25)
[2017-03-29 23:48] VITALS: BP 124/62; PULSE 60; TEMP 36.8; O2SAT 98
[2017-03-30] MEDS: PIPERACILL/TAZOBAC IV 3.375 GM in DEXTROSE 5% 100ML 100 ML IV SCH (03:52)
[2017-03-30] MEDS: LEVOTHYROXINE 75 MCG TAB PO SCH (06:02)
[2017-03-30 07:55] VITALS: BP 127/67; PULSE 88; TEMP 37; O2SAT 97
[2017-03-30 08:00] VITALS: O2SAT 97
[2017-03-30 08:25] LABS: HEMATOCRIT 31.3 % (37-47); MEAN CORPUSCULAR HEMOGLOBIN 29.7 pg (25-34); MEAN CORPUSCULAR HGB CONC 31.6 g/dl (32-36); MEAN PLATELET VOLUME 8.7 fL (7.4-10.4); PLATELET COUNT 481 K/uL (130-400); RED BLOOD COUNT 3.33 M/uL (4.2-5.4); WHITE BLOOD COUNT 10.82 K/uL (4.8-10.8)
[2017-03-30] MEDS: TRIMETHOPRIM/POLYMYXIN B OP SCH (08:27)
[2017-03-30] MEDS: MAGNESIUM OXIDE 400 MG TAB PO SCH (08:28)
[2017-03-30] MEDS: POLYETHYLENE (MIRALAX) 17 GM PACK PO SCH (08:28)
[2017-03-30] MEDS: METOPROLOL TARTRATE 50 MG TAB PO SCH (08:28)
[2017-03-30] MEDS: DOCUSATE SODIUM 100 MG CAP PO SCH (08:28)
[2017-03-30] MEDS: AMIODARONE 200 MG TAB PO SCH (08:29)
[2017-03-30] MEDS: ATORVASTATIN 20 MG TAB PO SCH (08:29)
[2017-03-30] MEDS: DOXYCYCLINE HYCLATE 100 MG CAP PO SCH (08:29)
[2017-03-30] MEDS: FUROSEMIDE 20 MG TAB PO SCH (08:29)
[2017-03-30] MEDS: CYANOCOBALAMIN 500 MCG TAB (VIT B-12) PO SCH (08:30)
[2017-03-30 08:36] LABS: INR 2.4 (0.9-1.1); PROTHROMBIN TIME (PATIENT) 27.1 SECONDS (9.0-12.0)
[2017-03-30] MEDS ORDERED: PIPE1INJ11 IV ×2 (12:38→12:41)
[2017-03-30] MEDS ORDERED: DXY100 PO ×2 (12:38→12:41)
[2017-03-30 12:42] VITALS: BP 127/67; PULSE 88; TEMP 37; O2SAT 97
--- NOTE | 2017-03-30 12:45 | Discharge Instructions ---
Discharge Instructions Date of Service Mar 30, 2017. Admission Reason for Admission: Supratherapeutic Inr, Symptomatic Anemia Discharge Discharge Diagnosis / Problem: RT hip hematoma requires wound vac after debridement Discharge Goals Goal(s): Decrease discomfort, Improve function, Increase independence Activity Recommendations Activity Limitations: as noted below Lifting Limitations: gradually increase as tolerated Exercise/Sports Limitations: gradually increase as tolerated Weightbearing Status: Left weightbearing, Right weightbearing . Instructions / Follow-Up Instructions / Follow-Up Continue physical therapy at rehab facility. Continue with antibiotics for 2 more weeks. F/U with wound care within 1 week F/U with PCP in 1-2 weeks Current Hospital Diet Patient's current hospital diet: Regular Diet Discharge Diet Recommended Diet: Regular Diet Procedures Procedures Performed: Debridement of Right Hip Wound with Application of Wound Vac Pending Studies Studies pending at discharge: no Medical Emergencies . Who to Call and When: Medical Emergencies: If at any time you feel your situation is an emergency, please call 911 immediately. . Non-Emergent Contact Non-Emergency issues call your: Primary Care Provider Call Non-Emergent contact if: temperature is above 101.5, your pain is worsening, wound has increased drainage, wound has increased pain . . "Provider Documentation" section prepared by Anthony Chisholm. . VTE Core Measure Inpt VTE Proph given/why not?: SCD's
--- NOTE | 2017-03-30 12:45 | Discharge Summary ---
Discharge Summary Date of Service Mar 30, 2017. Discharge Summary Admission Date: Mar 12, 2017 at 22:08 Discharge Date: Mar 30, 2017 Discharge Disposition: Rehab Principal Diagnosis: Hematoma (blood collection) in right hip Problems/Secondary Diagnoses: atrial fibrillation, acute kidney injury Immunizations: Have You Had Influenza Vaccine: Yes Influenza Vaccine Date: Feb 22, 2009 History of Tetanus Vaccine?: UNK Tetanus Immunization Date: Aug 30, 2002 History of Pneumococcal: No Pneumococcal Date: Jul 16, 2012 History of Hepatitis B Vaccine: No Consultations: ID CONSULTATION DATE OF CONSULTATION: 03/26/2017 DATE OF CONSULTATION: 03/26/2017 REQUESTING PHYSICIAN: Dr. Neely. HISTORY OF PRESENT ILLNESS: This is a 77-year-old female who was admitted to the hospital after she had progressively worsening weakness. She was found to be anemic and with a supratherapeutic INR. She had a fall one day prior to admission and she had fallen on her right hip. She did undergo a CAT scan in the Emergency Room which showed an 11 cm hematoma. She did have this debrided and a wound VAC was placed. She was followed by the wound care team here at the hospital. It was noted on the that she did have some necrotic tissue at the border of her wound and for this reason she was taken to the OR on the and underwent debridement. She did have a wound culture obtained on the which grew MSSA. It appears that she was started on Bactrim, but she does have a reported allergy to this and subsequently received doxycycline. She also had a wound culture obtained on the which grew E. coli which was resistant to sulbactam only, streptococcus species and pseudomonas, which was pansensitive. On the , she was placed on Zosyn and she remains on this. She did have a mild fever on the of 37.7 and on the of 37.8, but otherwise she has been afebrile this admission. Her VAC remains in place. Her white blood cell count was initially 25,000 on arrival to the hospital, but has decreased to 9. Her hemoglobin was as low as 5.7 on arrival to the hospital. Infectious diseases was consulted for antibiotic recommendations. She states she is due to be transferred to [facility] possibly later today. She currently denies any fevers or chills. She states she is tolerating her antibiotics well. She has no nausea, vomiting, diarrhea, chest pain, shortness of breath or cough. She denies any pain in the hip and states overall she is feeling much better. Her remaining review of systems is unremarkable. PAST MEDICAL HISTORY: Significant for Afib, diverticulitis, cholecystectomy, hernia repair, hysterectomy, and now hematoma evacuation of the right hip. FAMILY HISTORY: Noncontributory. SOCIAL HISTORY: Negative for tobacco use, alcohol use or drug use. ALLERGIES: SHE HAS ALLERGIES TO QUINOLONES AND BACTRIM. CURRENT MEDICATIONS: Include Coumadin, Zosyn, Lasix, eyedrops, magnesium, MiraLax, Colace, Lopressor, Ultram, amiodarone, Lipitor, vitamin B12, Synthroid, Tylenol. PHYSICAL EXAMINATION: VITAL SIGNS: She is afebrile, pulse 66, respiratory rate 20, blood pressure 116/67, oxygen saturation is 94-97% on room air. GENERAL: She is awake, alert and oriented x3. She is in no acute distress. HEAD, EYES, EARS, NOSE, AND THROAT: Mucous membranes are moist. Extraocular muscles are intact. HEART: Regular. LUNGS: Clear. ABDOMEN: Soft. There is no edema. SKIN: Without rash. Right hip wound VAC is in place. There is no surrounding erythema. LABORATORY STUDIES: CBC today reveals a white blood cell count of 9.4, hemoglobin 8.7, platelets 349. Chemistry panel reveals a sodium of 138, potassium 4.1, chloride 103, bicarbonate 27, BUN 18, creatinine 1.0, glucose is 87. Again, wound culture from the 7th is growing MSSA. Wound culture from the 14th is growing E. coli streptococcus species which has not been identified and pseudomonas. CT is as above. ASSESSMENT AND PLAN: 1. Infected right hip hematoma status post debridement and VAC placement. 2. Leukocytosis, resolved. At this time she will be continued on Zosyn as this will treat the strep species, the E. coli as well as pseudomonas there are no oral options to treat pseudomonas as she does have a fluoroquinolone allergy. She did grow MSSA initially but did not grow from the 2nd culture; however, doxycycline will be added back to her antibiotic regimen for treatment of this. She does plan to follow with the wound care center upon discharge from the hospital and she can also follow with infectious diseases at this time. I would give a minimum of 14 days of antibiotics with weekly laboratory studies and she can be followed in the wound care center and antibiotic duration can be adjusted if necessary. Thank you for this consultation. Consultation Date of Consultation: Mar 22, 2017. Attending Physician: Heidi Baker M.D. History of Present Illness 77 y/o female on coumadin for A-fib fell at her home approx 12 days ago. She has been admitted for the past 10 days and managed for right hip hematoma and INR of 6 on admission. Hematoma was evacuated by Dr. Delarosa on 03/16 and wound vac was placed. Today during vac change there was necrosis of the wound edges and odor. Surgery was asked to evaluate her further. Past Medical/Surgical History Medical Problems: (1) Atrial fibrillation (2) Cholecystectomy (3) Diverticulitis (4) Hernia repair (5) Hysterectomy (6) Symptomatic anemia Family History Cancer Diabetes mellitus Gallbladder disease Hypertension Social History lives at home alone, 3 daughters provide some assistance Smoking Status: Never Smoker Smokeless Tobacco Use: No Alcohol Use: none Drug Use: none Marital Status: Housing Status: lives with significant other Occupation Status: retired Allergies Coded Allergies: Quinolones (Unverified Adverse Reaction, Mild, HIVES, 03/10/17) Tendonitis Sulfamethoxazole w/Trimethoprim (Unverified Adverse Reaction, Mild, GI SYMPTOMS, 03/10/17) Current Inpatient Medications Current Inpatient Medications Medications (Trade) Dose Ordered Sig/Khris Route Start Time Stop Time Status Last Admin Dose Admin Acetaminophen (Tylenol Tab) 650 mg Q4H PRN PO 03/12/17 22:15 04/11/17 22:14 03/15/17 07:50 650 MG Amiodarone HCl (Cordarone Tab) 200 mg DAILY PO 03/13/17 09:00 04/12/17 08:59 03/22/17 08:49 200 MG Atorvastatin Calcium (Lipitor Tab) 20 mg DAILY PO 03/13/17 09:00 04/12/17 08:59 03/22/17 08:50 20 MG Cyanocobalamin (Vitamin B-12 Tab) 1,000 mcg DAILY PO 03/13/17 09:00 04/12/17 08:59 03/22/17 08:49 1,000 MCG Levothyroxine Sodium (Synthroid Tab) 75 mcg DAILYBB PO 03/13/17 06:00 04/12/17 05:59 03/22/17 06:01 75 MCG Acetaminophen 100 ml @ 400 mls/hr Q8H PRN IV 03/12/17 22:15 04/11/17 22:14 03/22/17 13:03 400 MLS/HR Tramadol HCl (Ultram Tab) 50 mg Q4H PRN PO 03/15/17 02:00 04/14/17 01:59 03/22/17 11:13 50 MG Metoprolol Tartrate (Lopressor Tab) 50 mg DAILY PO 03/16/17 09:00 04/15/17 08:59 03/22/17 08:49 50 MG Docusate Sodium (coLACE CAP) 100 mg BID PO 03/16/17 21:00 04/15/17 20:59 03/22/17 08:49 100 MG Polyethylene (Miralax Powder Packet) 17 gm DAILY PO 03/18/17 09:00 04/17/17 08:59 03/20/17 07:30 17 GM Magnesium Oxide (Mag-Ox Tab) 400 mg DAILY PO 03/19/17 09:00 04/18/17 08:59 03/22/17 08:49 400 MG Doxycycline Hyclate (Vibramycin Cap) 100 mg BID PO 03/20/17 21:00 03/30/17 20:59 03/22/17 08:50 100 MG Polymyxin/ Trimethoprim Sulfate (Polytrim Oph Soln) 1 drops BID OP 03/20/17 21:00 04/19/17 20:59 03/22/17 08:50 1 DROPS Furosemide (Lasix Tab) 20 mg DAILY PO 03/21/17 09:00 04/20/17 08:59 03/22/17 08:50 20 MG Physical Exam Date Time Temp Pulse Resp B/P (MAP) Pulse Ox O2 Delivery O2 Flow Rate FiO2 03/22/17 15:40 37.0 60 18 100/49 (66) 95 Room Air 03/22/17 08:03 37.0 70 18 115/63 (80) 92 Room Air 03/22/17 07:25 Room Air 03/22/17 00:00 Room Air 03/22/17 00:00 37.2 72 18 106/59 (75) 93 Room Air 03/21/17 20:00 Room Air 03/21/17 17:00 Room Air General Appearance: no apparent distress Extremities/Musculoskelatal: + pertinent finding (open right hip wound 7 cm with necrotic skin edges, 15-20 cm erythema + induration, malodorous) Laboratory Results Last 24 Hours Test 03/22/17 06:34 White Blood Count 11.66 K/uL Red Blood Count 2.41 M/uL Hemoglobin 7.0 g/dL Hematocrit 22.3 % Mean Corpuscular Volume 92.5 fL Mean Corpuscular Hemoglobin 29.0 pg Mean Corpuscular Hemoglobin Concent 31.4 g/dl Platelet Count 348 K/uL Mean Platelet Volume 8.7 fL Neutrophils (%) (Auto) 69.9 % Lymphocytes (%) (Auto) 12.1 % Monocytes (%) (Auto) 13.7 % Eosinophils (%) (Auto) 1.7 % Basophils (%) (Auto) 0.3 % Neutrophils # (Auto) 8.15 K/uL Lymphocytes # (Auto) 1.41 K/uL Monocytes # (Auto) 1.60 K/uL Eosinophils # (Auto) 0.20 K/uL Basophils # (Auto) 0.03 K/uL RDW Standard Deviation 61.8 fL RDW Coefficient of Variation 18.6 % Immature Granulocyte % (Auto) 2.3 % Immature Granulocyte # (Auto) 0.27 K/uL Polychromasia 1+ Prothrombin Time 12.7 SECONDS Prothromb Time International Ratio 1.2 Activated Partial Thromboplast Time 32.3 SECONDS Partial Thromboplastin Ratio 1.2 Sodium Level 134 mmol/L Potassium Level 4.4 mmol/L Chloride Level 101 mmol/L Carbon Dioxide Level 27 mmol/L Anion Gap 6.0 mmol/L Blood Urea Nitrogen 17 mg/dl Creatinine 0.87 mg/dl Est Creatinine Clear Calc Drug Dose 45.1 ml/min Estimated GFR () 73.4 Estimated GFR (Non- 63.4 BUN/Creatinine Ratio 19.4 Random Glucose 89 mg/dl Calcium Level 7.9 mg/dl Assessment & Plan right hip wound, deteriorating s/p evacuation of hematoma Wider debridement in the OR was recommended. She is reluctant but would like to think about it tonight. Will keep her NPO after MN, plan for debridement tomorrow morning if she wishes to proceed. <Electronically signed by Rick Ferguson JR, PA-C> <Electronically signed by Will Luna D.O.> Medication Reconciliation New Medications: Piperacillin Sodium-Tazobactam (Zosyn) 1 Inj Inj 3.375 GM IV Q8 for 14 Days, #42 VIAL 0 Refills Doxycycline Hyclate (Doxycycline Hyclate) 100 Mg Cap 100 MG PO BID for 14 Days, #28 CAP 0 Refills Continued Medications: Amiodarone Hcl (Cordarone) 200 Mg Tab 1 TAB PO DAILY for 90 Days, #90 TAB 1 Refill Amlodipine (Norvasc) 5 Mg Tab 5 MG PO DAILY, TAB Atorvastatin (Lipitor) 20 Mg Tab 1 TAB PO DAILY for 90 Days, #90 TAB 1 Refill Calcium Carbonate-Vitamin D (Calcium) 1 Tab Tab 1 TAB PEG DAILY Calcium Polycarbophil (Fiber Laxative) 625 Mg Tab 625 MG PO BID Cyanocobalamin (Vitamin B-12) 1,000 Mcg Tab 1000 MCG PO DAILY, 0 Refills Furosemide (Lasix) 20 Mg Tab 20 MG PO DAILY, TAB Levothyroxine Sodium (Levothyroxine Sodium) 75 Mcg Tab 75 MCG PO DAILY Magnesium Oxide (Mag-Ox) 400 Mg Tab 400 MG PO DAILY, TAB Metoprolol Tartrate (Lopressor) (Lopressor) 50 Mg Tab 50 MG PO DAILY, TAB Multivitamin (Multivitamin) Tab 1 TABLET PO DAILY, 0 Refills Warfarin Sod (Jantoven) 2.5 Mg Tab 2.5 MG PO ONLY ON WED, TAB Warfarin Sod (Jantoven) 5 Mg Tab 5 MG PO DAILY EXCEPT ON WED, TAB Discharge Exam Review of Systems: Constitutional: No fever, No chills Respiratory: No cough, No sputum Cardiovascular: No chest pain, No orthopnea Abdomen: No pain, No nausea Neurologic: No memory loss, No paralysis Psychiatric: No depression symptoms, No anhedonism Endocrine: No fatigue Physical Exam: General Appearance: WD/WN, no apparent distress ENT: normal ENT inspection Neck: supple, no adenopathy Respiratory/Chest: chest non-tender, lungs clear, normal breath sounds Cardiovascular: regular rate, rhythm Abdomen / GI: normal bowel sounds, non tender, soft Extremities: + pertinent finding (right hip wound vac in place) Skin: normal color Lymphatic: no adenopathy Hospital Course History of Present Illness Source: patient, hospital records The patient is a 77-year-old female who presents to the emergency department with progressively worsening weakness over the past few days to the point that she was unable to stand today. She reports falling the day before arrival and the day of arrival to the emergency department. With the second fall she reports that she did hit her head. EMS reports that she had a bowel movement on the couch today because she could not get up to go the restroom. She denies any blood in stool or urine. She is presently taking Coumadin. Hospital Course: This is a 77-year-old female who was admitted to the hospital after she had progressively worsening weakness. She was found to be anemic and with a supratherapeutic INR. She had a fall one day prior to admission and she had fallen on her right hip. CAT scan in the Emergency Room which showed an 11 cm hematoma. She did have this debrided and a wound VAC was placed. She was followed by the wound care team On the and underwent debridement for necrotic tissue on the border of her wound. She did have a wound culture obtained on the which grew MSSA. She also had a wound culture obtained on the which grew E. coli which was resistant to sulbactam only, streptococcus species and pseudomonas, which was pansensitive. On the , she was placed on Zosyn and she remains on this. She did have a mild fever on the of 37.7 and on the of 37.8, but otherwise she has been afebrile this admission. Her VAC remains in place. Her white blood cell countt has decreased to 9. A/P 77 yo F hx of Afib p/w progressive LE weakness with Hx of fall with subsequent Right hip hematoma formation complicated by necrotic infection, s/p debridement with wound vacc placement Acute blood loss Anemia: sec to hematoma on Coumadin at home Hgb stable(8.5-->9.5-->9) S/p 4 units of PRBC FOBT Negative. Hematoma Rt Hip: secoandry to Hx of fall s/p debridement (03/23/17 )of necrotic tissue Continue wound vac s/p PICC line placement Continue Zosyn, day 8 total 14 days of abx treatment per ID F/u with Wound care center following d/c Paroxysmal Afib currently stable, NS Cont amiodarone Cont Metoprolol and monitor HR Cont Coumadin 5mg daily R. Eye Conjunctivitis Continue Polytrim Ophthalmic drops Leg wound wound culture from 03/16: MSSA, Repeat wound culture from 03/23 : Ecoli, strep and pseudomonas Continue IV Zosyn duration of abx therapy as above Constipation Continue Colace daily and miralax LE Edema Continue Lasix PEYTON -prerenal -resolved -monitor prp DVT prophylaxis warfarin Disposition: awaiting SNF placement Total Time Spent: Greater than 30 minutes This includes examination of the patient, discharge planning, medication reconciliation, and communication with other providers. Discharge Instructions Please refer to the electronic Patient Visit Report (Discharge Instructions) for additional information. Follow-Up F/U as noted in discharge instructions
== END 2017-03-30 13:45 | DRG 803 ==
LOC: EDBD 18:54 → C.EDA 18:56 → C.MSICU 22:08 → ENRESERV 22:12 → C.MED 03-13 10:01 → C.MS2W 03-19 12:38
PROVIDERS: ADMIT Hospitalist; ATTEND Internal Medicine Sports Medicine
PROC: 0JCN0ZZ Extirpation of Matter from Right Lower Leg Subcutaneous Tissue and Fascia, Open Approach (ICD-10-PCS; 2017-03-19)
PROC: 0JBN0ZZ Excision of Right Lower Leg Subcutaneous Tissue and Fascia, Open Approach (ICD-10-PCS; principal; 2017-03-23 10:00)
PROC: 0JCN0ZZ Extirpation of Matter from Right Lower Leg Subcutaneous Tissue and Fascia, Open Approach (ICD-10-PCS; principal; 2017-03-23 10:00)
PROC: 02HV33Z Insertion of Infusion Device into Superior Vena Cava, Percutaneous Approach (ICD-10-PCS; 2017-03-26)
DX: D68.32 Hemorrhagic disorder due to extrinsic circulating anticoagulants (principal); N17.9 Acute kidney failure, unspecified; D62 Acute posthemorrhagic anemia; I96 Gangrene, not elsewhere classified; S70.01XA Contusion of right hip, initial encounter; Z79.01 Long term (current) use of anticoagulants; H10.9 Unspecified conjunctivitis; I48.0 Paroxysmal atrial fibrillation; K59.00 Constipation, unspecified; Z83.3 Family history of diabetes mellitus; I10 Essential (primary) hypertension; E78.5 Hyperlipidemia, unspecified; E03.9 Hypothyroidism, unspecified; E53.8 Deficiency of other specified B group vitamins; W19.XXXA Unspecified fall, initial encounter; Y92.019 Unspecified place in single-family (private) house as the place of occurrence of the external cause; Z88.0 Allergy status to penicillin; B95.61 Methicillin susceptible Staphylococcus aureus infection as the cause of diseases classified elsewhere; B96.20 Unspecified Escherichia coli [E. coli] as the cause of diseases classified elsewhere

== ENCOUNTER → 2017-04-26 | Outpatient (CLI) | payer OTHER ==
[~2017-04-26] MED LIST changes: -AMLO-110 PO; +AMLO5TAB3 PO; +ASPI325T39 PO; +CALC-51 PO; -CALCTAB5; +DXY100 PO; -LEVO125T72 PO; +LEVO75TA5 PO; +PIPE1INJ11 IV; +POTA10CA28 PO
[2017-04-26 08:37] LABS: INR 1.3 (0.9-1.1)
--- NOTE | 2017-04-28 12:00 | CODING QUERY NO DIAGNOSIS ---
TREATMENT RENDERED WITHOUT A DIAGNOSIS To promote full compliance with coding requirements relating to patient care, physician participation is requested in all cases of icd 9 coder uncertainty. Please assist us with providing a diagnosis/symptom for the test(s) below: A diagnosis/symptom was not documented on your Order. A valid diagnosis/symptom is required to bill all insurances. Please remember that we are unable to code a diagnosis of rule out, probable, possible, questionable, or suspected. Tests that require a diagnosis: DOS 04/26 * PTINR DIAGNOSIS: Provider Signature: Date: Thank you Jewles [facility] Information Management Once completed, please kindly fax back to [phone] For questions please call [phone]
== END ==
LOC: C.LABCC 08:13
PROVIDERS: ATTEND Internal Medicine
DX: I48.91 Unspecified atrial fibrillation (principal)

== ENCOUNTER → 2017-04-27 | Outpatient (CLI) | payer OTHER ==
[~2017-04-27] MED LIST changes: +AMLO-110 PO; -AMLO5TAB3 PO; -ASPI325T39 PO; +CALC-51 PEG; -CALC-51 PO; -POTA10CA28 PO
[2017-04-27 08:14] LABS: BASO % 0.9 %; BASO ABS # 0.09 K/uL (0-0.2); COMPLETE YES; EOS % 3.2 %; HEMATOCRIT 32.9 % (37-47); IG% 0.6 %; LYMPH ABS # 2.79 K/uL (1.2-3.4); MEAN CELL VOLUME 95.4 fL (80-100); MEAN CORPUSCULAR HEMOGLOBIN 30.7 pg (25-34); MEAN CORPUSCULAR HGB CONC 32.2 g/dl (32-36); MONO % 11.5 %; NEUT % 55.8 %; PLATELET COUNT 285 K/uL (130-400); RED BLOOD COUNT 3.45 M/uL (4.2-5.4); WHITE BLOOD COUNT 9.96 K/uL (4.8-10.8)
[2017-04-27 08:22] LABS: ALT/SGPT 31 U/L (12-78); BLOOD UREA NITROGEN 28 mg/dl (7-18); CALCIUM 8.8 mg/dl (8.5-10.1); CARBON DIOXIDE 26 mmol/L (21-32); CHLORIDE 109 mmol/L (98-107); CREATININE 1.12 mg/dl (0.60-1.20); GLUCOSE 80 mg/dl (70-99); SODIUM 141 mmol/L (136-145)
[2017-04-27 08:24] LABS: INR 1.3 (0.9-1.1); PROTHROMBIN TIME (PATIENT) 13.4 SECONDS (9.0-12.0)
[2017-04-27 08:32] LABS: ALB/GLOB RATIO 0.7 (0.9-2); ALKALINE PHOSPHATASE 65 U/L (45-117); AST/SGOT 27 U/L (15-37)
== END ==
LOC: C.LABCC 07:48
PROVIDERS: ATTEND Internal Medicine
DX: L08.9 Local infection of the skin and subcutaneous tissue, unspecified (principal)

== ENCOUNTER → 2017-05-04 | Outpatient (CLI) | payer OTHER ==
[~2017-05-04] MED LIST changes: +POTA10CA28 PO
[2017-05-04 09:46] LABS: BASO ABS # 0.09 K/uL (0-0.2); COMPLETE YES; EOS % 4.3 %; HEMATOCRIT 33.4 % (37-47); IG% 0.6 %; LYMPH % 26.2 %; LYMPH ABS # 2.36 K/uL (1.2-3.4); MEAN CELL VOLUME 95.4 fL (80-100); MEAN CORPUSCULAR HGB CONC 31.4 g/dl (32-36); MEAN PLATELET VOLUME 10.9 fL (7.4-10.4); MONO % 13.4 %; NEUT % 54.5 %; PLATELET COUNT 250 K/uL (130-400); WHITE BLOOD COUNT 9.01 K/uL (4.8-10.8)
[2017-05-04 09:55] LABS: BLOOD UREA NITROGEN 23 mg/dl (7-18); BUN/CREATININE RATIO 23.2 (10-20); C-REACTIVE PROTEIN < 0.29 mg/dl (0-0.29); CARBON DIOXIDE 27 mmol/L (21-32); CHLORIDE 108 mmol/L (98-107); GLUCOSE 70 mg/dl (70-99); POTASSIUM 4.3 mmol/L (3.5-5.1); SODIUM 141 mmol/L (136-145)
[2017-05-04 10:04] LABS: PREALBUMIN 27.5 mg/dl (20-40)
== END ==
LOC: C.LABCC 09:14
PROVIDERS: ATTEND Internal Medicine
DX: S71.001A Unspecified open wound, right hip, initial encounter (principal); X58.XXXA Exposure to other specified factors, initial encounter

== ENCOUNTER → 2017-05-05 | Outpatient (CLI) | payer OTHER ==
[~2017-05-05] MED LIST changes: -AMLO-110 PO; +AMLO5TAB3 PO; +ASPI325T39 PO; -CALC-51 PEG; +CALC-51 PO
== END ==
LOC: C.LABCC 09:01
PROVIDERS: ATTEND Internal Medicine
DX: I48.91 Unspecified atrial fibrillation (principal); T81.89XA Other complications of procedures, not elsewhere classified, initial encounter; Y83.8 Other surgical procedures as the cause of abnormal reaction of the patient, or of later complication, without mention of misadventure at the time of the procedure; L89.612 Pressure ulcer of right heel, stage 2; L89.312 Pressure ulcer of right buttock, stage 2

== ENCOUNTER → 2017-05-07 | Outpatient (CLI) | payer OTHER ==
[~2017-05-07] MED LIST changes: +AMLO-110 PO; -AMLO5TAB3 PO; -ASPI325T39 PO; +CALC-51 PEG; -CALC-51 PO
[2017-05-07 09:24] LABS: ALBUMIN 2.4 gm/dl (3.4-5.0); ALT/SGPT 26 U/L (12-78); BLOOD UREA NITROGEN 25 mg/dl (7-18); CALCIUM 8.8 mg/dl (8.5-10.1); CARBON DIOXIDE 28 mmol/L (21-32); CREATININE 1.08 mg/dl (0.60-1.20); GLUCOSE 73 mg/dl (70-99); SODIUM 143 mmol/L (136-145)
[2017-05-07 09:27] LABS: ALKALINE PHOSPHATASE 67 U/L (45-117); AST/SGOT 24 U/L (15-37); TOTAL PROTEIN 5.6 gm/dl (6.4-8.2)
--- NOTE | 2017-05-12 10:12 | CODING QUERY NO DIAGNOSIS ---
: 1940 TREATMENT RENDERED WITHOUT A DIAGNOSIS To promote full compliance with coding requirements relating to patient care, physician participation is requested in all cases of singing messenger uncertainty. Please assist us with providing a diagnosis/symptom for the test(s) below: A diagnosis/symptom was not documented on your Order. A valid diagnosis/symptom is required to bill all insurances. Please remember that we are unable to code a diagnosis of rule out, probable, possible, questionable, or suspected. Tests that require a diagnosis: * Sed Rate 05/07/17 * Comp Metabolic Profile 05/07/17 Provider Signature: Date: Thank you Karolina Pru[facility] Information Management Once completed, please kindly fax back to [phone] For questions please call [phone]
== END ==
LOC: C.LABCC 08:48
PROVIDERS: ATTEND Internal Medicine
DX: M00.9 Pyogenic arthritis, unspecified (principal)

== ENCOUNTER → 2017-05-11 | Outpatient (CLI) | payer OTHER ==
[2017-05-11 08:39] LABS: BASO % 0.7 %; BASO ABS # 0.06 K/uL (0-0.2); EOS ABS # 0.32 K/uL (0-0.5); HEMOGLOBIN 10.7 g/dL (12.0-16.0); IG# 0.04 K/uL (0.00-0.02); LYMPH ABS # 2.18 K/uL (1.2-3.4); MEAN CORPUSCULAR HEMOGLOBIN 29.9 pg (25-34); MEAN CORPUSCULAR HGB CONC 31.5 g/dl (32-36); MEAN PLATELET VOLUME 11.3 fL (7.4-10.4); MONO % 13.5 %; MONO ABS # 1.09 K/uL (0.11-0.59); NEUT % 54.3 %; NEUT ABS # 4.38 K/uL (1.4-6.5); PLATELET COUNT 247 K/uL (130-400); RED CELL DISTRIBUTION WIDTH SD 56.3 fL (36.4-46.3); WHITE BLOOD COUNT 8.07 K/uL (4.8-10.8)
[2017-05-11 08:46] LABS: INR 1.2 (0.9-1.1)
[2017-05-11 08:50] LABS: ALBUMIN 2.5 gm/dl (3.4-5.0); ALKALINE PHOSPHATASE 76 U/L (45-117); ALT/SGPT 24 U/L (12-78); AST/SGOT 28 U/L (15-37); BLOOD UREA NITROGEN 22 mg/dl (7-18); CALCIUM 8.8 mg/dl (8.5-10.1); CARBON DIOXIDE 29 mmol/L (21-32); CREATININE 1.04 mg/dl (0.60-1.20); GLUCOSE 81 mg/dl (70-99); SODIUM 142 mmol/L (136-145)
== END ==
LOC: C.LABCC 08:12
PROVIDERS: ATTEND Internal Medicine
DX: I48.91 Unspecified atrial fibrillation (principal); M00.9 Pyogenic arthritis, unspecified

== ENCOUNTER → 2017-05-21 | Outpatient (CLI) | payer OTHER ==
[~2017-05-21] MED LIST changes: -DXY100 PO; -PIPE1INJ11 IV; -WARF2.5T8 PO
[2017-05-21 13:45] LABS: INR 1.7 (0.9-1.1)
--- NOTE | 2017-06-11 15:53 | CODING QUERY NO DIAGNOSIS ---
: 1940 Valid Physician Order Needed A valid physician order must be submitted in order to properly bill for the service(s) provided, including date of service(s), valid diagnosis, and physician signature. If these tests are done on a recurring basis the original physician order must be submitted in order to code and bill for the service(s) provided. Please fax us the original, signed physician order so that we may expedite billing to [phone] DOS 05/21/2017 * Prothrombin Time/INR Thank you Karolina Pruitt [facility] Information Management
== END | disposition home or self-care (01) ==
LOC: C.LABSPEC 13:02
PROVIDERS: ATTEND Internal Medicine Interventional Cardiology
DX: S71.001A Unspecified open wound, right hip, initial encounter (principal); S70.01XA Contusion of right hip, initial encounter; L89.320 Pressure ulcer of left buttock, unstageable; X58.XXXA Exposure to other specified factors, initial encounter

== ENCOUNTER → 2017-05-28 | Outpatient (CLI) | payer OTHER ==
[2017-05-28 14:09] LABS: INR 1.4 (0.9-1.1)
[2017-05-28 14:09] LABS: PROTHROMBIN TIME (PATIENT) 14.1 SECONDS (9.0-12.0)
== END | disposition home or self-care (01) ==
LOC: C.LABSPEC 13:09
DX: I48.0 Paroxysmal atrial fibrillation (principal)

== ENCOUNTER → 2017-06-04 | Outpatient (CLI) | payer OTHER ==
[2017-06-04 09:06] LABS: INR 1.7 (0.9-1.1)
--- NOTE | 2017-06-08 06:40 | CODING QUERY MEDICAL NECESSITY ---
Valid Physician Order Needed A valid physician order must be submitted in order to properly bill for the service(s) provided, including date of service(s), valid diagnosis, and physician signature. If these tests are done on a recurring basis the original physican order must be submitted in order to code and bill for the service(s) provided. Please fax us the original, signed physician order so that we may expedite billing to [phone] DOS 06/04/17 * PT/INR Thank you Taryn [facility] Information Management
== END | disposition home or self-care (01) ==
LOC: C.LABSPEC 08:39
PROVIDERS: ATTEND Internal Medicine Interventional Cardiology
DX: I48.0 Paroxysmal atrial fibrillation (principal); Z79.01 Long term (current) use of anticoagulants

== ENCOUNTER → 2017-06-21 | Outpatient (CLI) | payer OTHER ==
[2017-06-21 10:14] LABS: INR 1.8 (0.9-1.1)
[2017-06-21 10:22] LABS: HEMOGLOBIN A1C 5.5 % (4.5-5.6)
--- NOTE | 2017-07-02 06:14 | CODING QUERY NO DIAGNOSIS ---
Valid Physician Order Needed A valid physician order must be submitted in order to properly bill for the service(s) provided, including date of service(s), valid diagnosis, and physician signature. If these tests are done on a recurring basis the original physician order must be submitted in order to code and bill for the service(s) provided. Please fax us the original, signed physician order so that we may expedite billing to [phone] DOS 06/21/2017 * PTINR, CPK, TSH, ESR, Vit D, Hba1c, etc_ ordered by Drs. Rizvi & Hilton Thank you! Jewels [facility] Information Management
== END | disposition home or self-care (01) ==
LOC: C.LABSPEC 09:33
DX: S71.001A Unspecified open wound, right hip, initial encounter (principal); L89.320 Pressure ulcer of left buttock, unstageable; X58.XXXA Exposure to other specified factors, initial encounter

== ENCOUNTER → 2017-07-05 | Outpatient (CLI) | payer OTHER ==
[~2017-07-05] MED LIST changes: -ATOR-54 PO
--- NOTE | 2017-07-12 09:47 | CODING QUERY NO DIAGNOSIS ---
Valid Physician Order Needed A valid physician order must be submitted in order to properly bill for the service(s) provided, including date of service(s), valid diagnosis, and physician signature. If these tests are done on a recurring basis the original physician order must be submitted in order to code and bill for the service(s) provided. Please fax us the original, signed physician order so that we may expedite billing to [phone] DOS 07/05/2017 * IMMUNFIX ELEC U RAN OR 24H CSF Thank you Rick [facility] Information Management
== END | disposition home or self-care (01) ==
LOC: C.LABSPEC 10:14
DX: S71.001A Unspecified open wound, right hip, initial encounter (principal); S70.01XA Contusion of right hip, initial encounter; X58.XXXA Exposure to other specified factors, initial encounter; L89.320 Pressure ulcer of left buttock, unstageable

== ENCOUNTER → 2017-12-22 | Day surgery (SDC) | payer OTHER ==
[2017-12-21 08:01] VITALS: Ht 162.6 cm; Wt 54.1 kg
[~2017-12-22] VITALS: Ht 162.6 cm; Wt 54.1 kg
[~2017-12-22] MED LIST changes: +500ML BSS 0.3ML EPI 1:1000PF IRRIG ONE; +ACETAMINOPHEN 325 MG TAB PO PRN; -AMLO-110 PO; +AMLO5TAB3 PO; +AMVISC PLUS 0.8ML SYRINGE INT OCU ONE; +ASPI325T39 PO; +ATROPINE SULFATE 0.1 MG/ML 5ML SYR IV PRN; +BSS FLUSH ONE; -CALC-51 PEG; +CALC-51 PO; -CALC625T4 PO; +ENDOCOAT 0.85ML SYRINGE INT OCU ONE; +EpHEDrine SULFATE INJ 50 MG/ML AMP IV PRN; +EpINEphrine INJ 1MG/ML AMP 1 MG/ML AMP ONE; +FENTANYL CITRATE INJ 50 MCG/1 ML 2 ML VIAL ONE; +LACTATED RINGER'S 1000ML 500 ML IV SCH; +LIDOCAINE 4% OP SOLN DROP CHARGE ONE; +LIDOCAINE 4% OP SOLN DROP CHARGE OPR SCH; +LIDOCAINE HCL 1% MPF 2 ML VIAL ONE; +MIDAZOLAM HCL 1 MG/ML 2ML VIAL ONE; +MIX: 4ML BSS 1ML EPI 1:1000 PF TOP ONE; +MOXIFLOXACIN OPH SOLN PER DROP CHARGE ONE; -POTA10CA28 PO; +POVIDONE-IODINE OP SOLN 30 ML BTL ONE; +PROPARACAINE 0.5% OP SOLN PER DROP CHARGE OPR SCH; +TOBRAMYCIN/DEXAMETHASONE OPH OINT PER APPLN CHARGE ONE; +TRIMETHOPRIM/POLYMYXIN B ONE; -WARF5TAB7 PO
[2017-12-22] MEDS: PHENYLEPHRINE HCL 2.5% OP SOLN PER DROP CHARGE OPR SCH ×3 (11:54→12:04)
[2017-12-22] MEDS: TROPICAMIDE 1% OP SOLN PER DROP CHARGE OPR SCH ×3 (11:55→12:05)
[2017-12-22] MEDS: CYCLOPENTOLATE HCL 1% OP SOLN PER DROP CHARGE OPR SCH ×3 (11:56→12:06)
[2017-12-22] MEDS: TRIMETHOPRIM/POLYMYXIN B OPR SCH ×3 (11:57→12:07)
--- NOTE | 2017-12-22 11:57 | History & Physical Bridge - SC ---
H&P Re-Evaluation Bridge Note: I have examined the patient, reviewed the History & Physical and in the interval since the performance of the History & Physical I have noted the following changes of clinical significance: No changes noted
--- NOTE | 2017-12-22 13:01 | [facility] Post Operative Brief Note ---
Immediate Operative Summary Operative Date Dec 22, 2017. Pre-Operative Diagnosis Right eye cataract Post-Operative Diagnosis same as preop Procedure(s) Performed Right Cataract Phacoemulsification With Intraocular Lens Implant Surgeon Dr. Hankins Electrician Second Surgeon(s) none Estimated Blood Loss 0ml Findings Consistent with Post-Op Diagnosis Specimens none per surgeon Anesthesia Type MAC Complication(s) none Disposition Accompanied Pt To Recover: no Disposition:
--- NOTE | 2017-12-22 13:02 | [facility] Operative Report ---
Operative Report Date of Service Dec 22, 2017. Operative Report DATE OF OPERATION: 12/22/17 PREOPERATIVE DIAGNOSIS: Senile nuclear cataract, right eye POSTOPERATIVE DIAGNOSIS: Senile nuclear cataract, right eye PROCEDURE PERFORMED: Phacoemulsification with intraocular lens implantation, right eye SURGEON: Dr. Michael Hankins ANESTHESIA: Topical with 1% intracameral lidocaine and monitored anesthesia care COMPLICATIONS: None DESCRIPTION OF PROCEDURE: After positively identifying the patient both verbally and by wristband in the preoperative area, the right eye was marked as the operative eye. The patient was then brought back to the operating room by the anesthesia and nursing staff where they were given a drop of Lidocaine and betadine into the operative eye. They were then sterilely prepped and draped in the standard fashion typical for ophthalmic surgery. Steri-strips were placed along the upper eyelids to keep the lashes back, and a lid speculum was placed into the operative eye. At this point, a documented time out was performed with members of the ophthalmology, nursing, and anesthesia staffs all agreeing upon the correct patient, correct location for surgery, correct procedure, and correct type and power of intraocular lens to be implanted. The microscope was then swung into position. First, a paracentesis wound was made using a sideport blade. Then, in sequence, 1% preservative-free lidocaine followed by Endocoat viscoelastic was injected into the anterior chamber. Next , the main incision was made with a keratome blade in triplanar fashion. A sharp cystotome was introduced into the eye and used to create a tear in the anterior capsule, which was directed into a continuous curvilinear capsulorrhexis using Utrata forceps. Hydrodissection was then performed with BSS on a flat-tip cannula. Next, the phacoemulsification handpiece was introduced into the eye and used to remove the nucleus in a [id number] fashion. This was done without complication and then the irrigation-aspiration handpiece was introduced into the eye and used to remove all remaining cortical and epinuclear material. Amvisc was then injected into the anterior chamber as well as into the capsular bag and using the lens injector system, an MX60 21.5 D lens, serial number [id number], and expiration date 07/2020 was injected into the capsular bag and rotated into the correct position. Next, the irrigation- aspiration handpiece was used to remove all remaining Amvisc. BSS was used to hydrate the main wound, and then BSS was injected into the paracentesis site to reach physiologic pressure and then the main wound was checked and found to be watertight. The patient was given drops of Vigamox and Tobradex ointment into the operative eye, and then the surrounding area was cleaned and dried. A clear plastic shield was placed over the eye and the patient was then sat up and taken from the operating room by the anesthesia staff having tolerated the procedure well and suffering no complications. DISPOSITION: The patient was returned to the recovery room in stable condition. I attest to the content of the Intraoperative Record and any orders documented therein. Any exceptions are noted below.
--- NOTE | 2017-12-22 13:03 | Discharge Instructions-[facility]Ctr ---
Discharge Instructions Date of Service Dec 22, 2017. Visit Reason for Visit: Right Cataract Discharge Discharge Diagnosis / Problem: right cataract Discharge Goals Goal(s): Decrease discomfort, Improve function Activity Recommendations Activity Limitations: as noted below Anesthesia . Post Anesthesia Instructions: If you have had General Anesthesia or IV Sedation: * Do not drive today. * Resume driving when surgeon permits. * Do not make important decisions or sign legal documents today. * Call surgeon for: 1. Temperature elevations greater than 101 degrees F. 2. Uncontrollable pain. 3. Excessive bleeding. 4. Persistent nausea and vomiting. 5. Medication intolerance (nausea, vomiting or rash). * For nausea and vomiting use only clear liquids such as: tea, soda, bouillon until nausea subsides, then gradually increase diet as tolerated. * If you have any concerns or questions, call your surgeon's office. If physician is unavailable and it is an emergency, call 911 or go to the nearest emergency room. . Instructions / Follow-Up Instructions / Follow-Up ACTIVITY RECOMMENDATIONS: * Light activities. * You may walk outside, read, watch television. * You may notice redness on the white part of the eye and some blurry vision - this is normal. MEDICATIONS: Resume previous medications unless instructed otherwise by your surgeon. Start all eye drops at 3 pm today: * Eye drops (today): Prednisone - one drop in operative eye every 2 hours while awake Polytrim - one drop in operative eye every 2 hours while awake Bromfenac - one drop in operative eye daily SPECIAL CARE INSTRUCTIONS: * Tape plastic shield over eye to sleep at night. Call your doctor at with any concerns or problems. FOLLOW UP VISIT: Follow-up with Dr Hankins at [place] office as scheduled. Diet Recommendations Home Diet: no limitations Procedures Procedures Performed: Right Cataract Phacoemulsification With Intraocular Lens Implant Pending Studies Studies pending at discharge: no Medical Emergencies . Who to Call and When: Medical Emergencies: If at any time you feel your situation is an emergency, please call 911 immediately. . Non-Emergent Contact Non-Emergency issues call your: Surgeon . . "Provider Documentation" section prepared by Michael Hankins. .
[2017-12-22 13:07] VITALS: TEMP 36.5
--- NOTE | 2017-12-22 13:24 | Anesthesia Progress Nt - [facility] ---
Anesthesia Post Op Note Date & Time Dec 22, 2017 at 13:24 Vital Signs Pain Intensity: 0 Vital Signs Past 12 Hours Date Time Temp Pulse Resp B/P (MAP) Pulse Ox O2 Delivery O2 Flow Rate FiO2 12/22/17 13:07 36.5 61 12 117/68 (84) 95 Room Air 12/22/17 11:47 36.4 58 18 157/83 (107) 98 Room Air Notes Mental Status: alert / awake / arousable, participated in evaluation Pt Amnestic to Procedure: Yes Nausea / Vomiting: adequately controlled Pain: adequately controlled Airway Patency, RR, SpO2: stable & adequate BP & HR: stable & adequate Hydration State: stable & adequate Anesthetic Complications: no major complications apparent
[2017-12-22 13:27] VITALS: BP 125/72; PULSE 64; O2SAT 95
== END | disposition home or self-care (01) ==
LOC: X.SURG 11:36
PROVIDERS: ATTEND Ophthalmology
DX: H25.11 Age-related nuclear cataract, right eye (principal); I10 Essential (primary) hypertension; I48.91 Unspecified atrial fibrillation; Z88.2 Allergy status to sulfonamides; Z88.1 Allergy status to other antibiotic agents; Z98.42 Cataract extraction status, left eye; Z79.82 Long term (current) use of aspirin; Z79.899 Other long term (current) drug therapy

== ENCOUNTER 2021-05-05 02:49 | Inpatient (IN) ==
--- NOTE | 2021-05-05 03:05 | Emergency Department Note ---
Impression & Plan Left-sided chest pain, Hypoxia ED Provider Note Name: JEN GALLOWAY Age: 81 Sex: F Arrives Via: Ambulance Informant: Patient, EMS ED Provider: Cordell Jha MD Chief Complaint: Chest pain Impression: As per impressions above Medical Decision Makin-year-old pleasant female with a history of A. fib, hypothyroid, hypertension, who lives at home alone. She arrives for evaluation of episode of left-sided chest pain that has now resolved. On evaluation she is mildly hypoxic around 85 to 87% on room air with some crackles on her lungs. I suspect this is more some fluid overload but the white count of 15 is difficult to state for sure it is not infectious. Chest x-ray is more along the lines of mild fluid overload. She is afebrile and she does not have much of a cough or shortness of breath at this hold off on any antibiotics at this time. Given the hypoxia will have hospitalist evaluate for further management and will hold off on Lasix at this time. Patient is agreeable to hospitalization. She has no significant shortness of breath nor tachycardia this seems unlikely PE. She was not given aspirin as she already takes 325 mg daily. Of note EKG does show some inferior ST depression/T wave inversion compared to previous old EKG. She has no further chest pain and initial troponin is negative we will hold off on anticoagulation at this time. Prior Medical Record and Triage/Nursing Notes reviewed by Me Additional history obtained from chart Differentials:Cardiac ischemia, aortic dissection, pulmonary embolism, pneumothorax, pneumonia, pericarditis, myocarditis, esophageal rupture, GERD, cholecystitis, pancreatitis, musculoskeletal, as well as other pathologies. Vital Signs: reviewed and remarkable for no significant abnormalities Interventions: Nasal cannula O2 Labs:Reviewed and remarkable for unremarkable including negative troponin Imagin view chest x-ray mild fluid overload/interstitial infiltrates EKG:Per My Interpretation: Indication Chest Pain: Sinus 71 bpm with 1st block and LBBB, qtc [address]ressions. No Ectopy. No Ischemia. Compared to EKG 07/19/[address] depressions are new Cardiac/Tele Monitoring: Cardiac Monitoring: An Order was placed for continuous cardiac monitoring. The monitor shows a rate of 70 with a normal sinus rhythm. Consults:Dr Fabián COLE Hospitalist Plan: Disposition:Hospitalization. Condition: Good History of Present Illness:81-year-old female arrives for evaluation of chest pain. Patient notes she developed burning left-sided chest pain about 2 hours ago. She admits she had some chili dogs for dinner and seemed to notice some discomfort after that. She used some Pepto-Bismol without relief. She called 911 for evaluation. States symptoms have now completely resolved. She has no history of cardiac disease other than A. fib. She is on aspirin 324 mg daily and is on no other blood thinners. She is on no blood thinners because she falls so frequently at home. Patient states she feels quite well right now has no shortness of breath, cough, fevers, chills, nausea, vomiting, back pain, abdominal pain, leg swelling, bruising, bleeding, diarrhea, urinary symptoms nor other symptoms. She has had no headache, neck pain, head injuries recently. She received no medications by EMS. Patient does not recall when her last cardiac work-up was. She denies any stents. Patient states she is fully vaccinated including the booster for COVID-19. ROS: See above HPI for pertinent positives & negatives. A total of 10 systems reviewed and were otherwise negative. Past Medical History:A. fib, hypertension, hypothyroidism Past Surgical History:Hysterectomy, cholecystectomy Family History:Patient denies family history Social History:Patient lives alone, uses walker to get around, has home health aide that helps her. Patient states she has been eating well and gets Meals on Wheels. Home Medications:See Below Allergies:See Below Vitals:Blood Pressure: 143/90, Pulse 74, RR 20, T 36.5C, O2 87% on RA Physical Exam: GENERAL: Patient is tired/chronically unwell/elderly appearing and in no acute distress. EYES: No scleral icterus, unremarkable pupils. ENT: Mucous membranes moist, no nasal congestion. NECK: No masses appreciated, nomeningismus, trachea is midline. RESPIRATORY: Mild crackles at bases, No dyspnea. Clear to auscultation and equal bilaterally. No wheeze, no rhonchi. CARDIOVASCULAR: Regular rate and rhythm.No murmurs, rubs, gallops appreciated. GASTROINTESTINAL: Abdomen soft, non-tender, no peritonitis.Bowel sounds positive.No masses appreciated. BACK: No midline tenderness, no CVA tenderness EXTREMITIES: Normal motion all extremities, no cyanosis, no edema. NEUROLOGIC: Alert and oriented, no acute motor or sensory deficits, no focal weakness, cranial nerves grossly intact. SKIN: Old scaring right owens, no rash, no jaundice, no diaphoresis. PSYCH: Appropriate GCS: 15 ED Course: Times/Reassessments: Patient comfortable and breathing in no distress on 2 L nasal cannula with an oxygen around 95%. She is agreeable to hospitalization Cordell Jha MD Past Med/Surg History Medical History (Updated 05/05/21 @ 06:01 by Cordell Jha MD) Afib Diverticulitis Hypertension Surgical History Hx of cholecystectomy Hx of hysterectomy Family History Other Family history non-contributory Social History Smoking Status: Never smoker Preferred Language: Pashto marital status: current occupational status: retired Feels Safe at Home: Yes Allergies Allergies Allergy/AdvReac Type Severity Reaction Status Date / Time metronidazole Allergy Intermediate GI SYMPTOMS Verified 03/21/20 08:54 Bactrim AdvReac Mild GI SYMPTOMS Unverified 12/21/17 08:00 Quinolones AdvReac Mild HIVES Verified 03/21/20 08:54 sulfamethoxazole AdvReac Mild GI SYMPTOMS Verified 03/21/20 08:54 trimethoprim AdvReac Mild GI SYMPTOMS Verified 03/21/20 08:54 Home Meds Home Medications Medication Instructions Recorded Confirmed aspirin 325 mg tablet 325 mg PO QAM #100 tab 01/28/19 01/21/21 calcium carbonate 600 mg calcium 600 mg PO QAM tab 01/28/19 01/21/21 (1,500 mg) tablet (Calcium) metoprolol tartrate 50 mg tablet 50 mg PO QDD #30 tab 01/28/19 01/21/21 (Lopressor) levothyroxine 75 mcg capsule 75 mcg PO QAM 03/14/19 01/21/21 Previous Rx's Medication Instructions Recorded ondansetron 4 mg disintegrating 4 mg PO Q6H PRN #10 tab 02/15/19 tablet amlodipine 10 mg tablet 10 mg PO QDD #90 tab 03/21/20 furosemide 20 mg tablet (Lasix) 20 mg PO DAILY PRN #90 tab 06/24/20 amiodarone 200 mg tablet 200 mg PO QDD #90 tab 12/30/20 Results & Data (ED) Vital Signs Vital Signs - 24 hr 05/05/21 02:49 05/05/21 02:59 05/05/21 03:08 Temperature 36.5 C Temperature Source Oral Pulse Rate 74 Pulse Rate [Apical] 67 Respiratory Rate 20 18 Respiratory Effort / Characteristics Non-Labored Spontaneous Non-Labored Spontaneous Respiratory Depth Normal Normal Respiratory Pattern Regular Blood Pressure 143/90 H Blood Pressure [Left Arm] 149/63 H Blood Pressure Mean 107 Blood Pressure Mean [Left Arm] 91 Blood Pressure Position [Left Arm] Sitting Pulse Oximetry 87 L 87 L 95 Oxygen Delivery Method Room Air Nasal Cannula Oxygen Flow Rate 0 2 Sepsis New/Unexplained Change in Mental Status N/A Sepsis Action Taken by Nursing No Action Required Oxygen Flow Rate - Titration 2 Pulse Oximetry Post Tiitration 95 Laboratory Data Result diagrams: 05/05/21 03:00 05/05/21 03:00 Lab Results 05/05/21 05/05/21 05/05/21 Range/Units 03:00 03:00 03:00 WBC 15.95 H (4.8-10.8) K/uL RBC 3.69 L (4.2-5.4) M/uL Hgb 11.8 L (12.0-16.0) g/dL Hct 35.6 L (37-47) % MCV 96.5 (80-100) fL MCH 32.0 (25-34) pg MCHC 33.1 (32-36) g/dL RDW Std Deviation 48.3 H (36.4-46.3) fL RDW Coeff of Ursula 13.6 (11.5-14.5) % Plt Count 236 (130-400) K/uL MPV 11.4 H (7.4-10.4) fL Immature Gran % (Auto) 0.4 % Neut % (Auto) 65.6 % Lymph % (Auto) 17.2 % [place]min[place] % (Auto) 14.2 % Eos % (Auto) 2.2 % Baso % (Auto) 0.4 % Neut # (Auto) 10.47 H (1.4-6.5) K/uL Lymph # (Auto) 2.74 (1.2-3.4) K/uL [place] # (Auto) 2.27 H (0.11-0.59) K/uL Eos # (Auto) 0.35 (0-0.5) K/uL Baso # (Auto) 0.06 (0-0.2) K/uL Immature Gran # (Auto) 0.06 H (0.00-0.02) K/uL Sodium 134 L (136-145) mmol/L Potassium 3.8 (3.5-5.1) mmol/L Chloride 103 (98-107) mmol/L Carbon Dioxide 21 (21-32) mmol/L Anion Gap 10.0 (3-11) BUN 19 H (7-18) mg/dl Creatinine 1.42 H (0.6-1.2) mg/dl Est Cr Clr Drug Dosing 28.7 ml/min Est GFR ( Amer) 39.5 ml/min Est GFR (Non-Af Amer) 34.1 ml/min BUN/Creatinine Ratio 13.5 (10-20) Glucose 135 H (70-99) mg/dl Lactate (0.4-2.0) mmol/L Calcium 9.3 (8.5-10.1) mg/dl Total Bilirubin 0.8 (0.2-1) mg/dl Direct Bilirubin 0.2 (0-0.2) mg/dl AST 17 (15-37) U/L ALT 18 (12-78) Alkaline Phosphatase 63 (45-117) U/L Troponin I < 0.015 (0-0.045) ng/ml NT-Pro-B Natriuret Pep 2137 H (0-1800) pg/ml Total Protein 7.8 (6.4-8.2) gm/dl Albumin 3.6 (3.4-5.0) gm/dl Lipase 115 (73-393) U/L Procalcitonin (0-0.5) ng/ml SARS-CoV-2 (PCR) NEGATIVE (Negative) Influenza Type A (PCR) Negative (Neg) Influenza Type B (PCR) Negative (Neg) RSV (RT-PCR) Negative (Neg) 05/05/21 05/05/21 Range/Units 03:00 03:43 WBC (4.8-10.8) K/uL RBC (4.2-5.4) M/uL Hgb (12.0-16.0) g/dL Hct (37-47) % MCV (80-100) fL MCH (25-34) pg MCHC (32-36) g/dL RDW Std Deviation (36.4-46.3) fL RDW Coeff of Ursula (11.5-14.5) % Plt Count (130-400) K/uL MPV (7.4-10.4) fL Immature Gran % (Auto) % Neut % (Auto) % Lymph % (Auto) % [place]minn % (Auto) % Eos % (Auto) % Baso % (Auto) % Neut # (Auto) (1.4-6.5) K/uL Lymph # (Auto) (1.2-3.4) K/uL [place]minn # (Auto) (0.11-0.59) K/uL Eos # (Auto) (0-0.5) K/uL Baso # (Auto) (0-0.2) K/uL Immature Gran # (Auto) (0.00-0.02) K/uL Sodium (136-145) mmol/L Potassium (3.5-5.1) mmol/L Chloride (98-107) mmol/L Carbon Dioxide (21-32) mmol/L Anion Gap (3-11) BUN (7-18) mg/dl Creatinine (0.6-1.2) mg/dl Est Cr Clr Drug Dosing ml/min Est GFR ( Amer) ml/min Est GFR (Non-Af Amer) ml/min BUN/Creatinine Ratio (10-20) Glucose (70-99) mg/dl Lactate 0.9 (0.4-2.0) mmol/L Calcium (8.5-10.1) mg/dl Total Bilirubin (0.2-1) mg/dl Direct Bilirubin (0-0.2) mg/dl AST (15-37) U/L ALT (12-78) Alkaline Phosphatase (45-117) U/L Troponin I (0-0.045) ng/ml NT-Pro-B Natriuret Pep (0-1800) pg/ml Total Protein (6.4-8.2) gm/dl Albumin (3.4-5.0) gm/dl Lipase (73-393) U/L Procalcitonin < 0.05 (0-0.5) ng/ml SARS-CoV-2 (PCR) (Negative) Influenza Type A (PCR) (Neg) Influenza Type B (PCR) (Neg) RSV (RT-PCR) (Neg) Administered Medications Discontinued Medications Famotidine (Famotidine 20mg/5ml Iv Push) 20 mg IV ONE STA Stop: 05/05/21 04:42 Last Admin: 05/05/21 04:52 Dose: 20 mg Documented by: [id number] Discharge Plan Visit Data Chief Complaint: Cardiac Assessment Stated Complaint: "BURNING IN THROAT AND CHEST" ED Provider: Cordell Jha Discharge Problem: Left-sided chest pain, Hypoxia
[2021-05-05 03:19] LABS: Basophils # (auto) 0.06 K/uL (0-0.2); Basophils % (auto) 0.4 %; Eosinophils # (auto) 0.35 K/uL (0-0.5); Eosinophils % (auto) 2.2 %; Hematocrit (blood only) 35.6 % (37-47); Hemoglobin 11.8 g/dL (12.0-16.0); Immature Granulocytes # (auto) 0.06 K/uL (0.00-0.02); Immature Granulocytes % (auto) 0.4 %; Lymphocytes # (auto) 2.74 K/uL (1.2-3.4); Lymphocytes % (auto) 17.2 %; Mean Corpuscular Hgb Conc 33.1 g/dL (32-36); Mean Corpuscular Volume 96.5 fL (80-100); Mean Platelet Volume 11.4 fL (7.4-10.4); Monocytes # (auto) 2.27 K/uL (0.11-0.59); Monocytes % (auto) 14.2 %; Neutrophils # (auto) 10.47 K/uL (1.4-6.5); Neutrophils % (auto) 65.6 %; Platelet Count 236 K/uL (130-400); RDW Coefficient of Variation 13.6 % (11.5-14.5); RDW Standard Deviation 48.3 fL (36.4-46.3); Red Blood Count 3.69 M/uL (4.2-5.4); White Blood Count 15.95 K/uL (4.8-10.8)
[2021-05-05 03:38] LABS: Alanine Aminotransferase 18 (12-78); Albumin Level 3.6 gm/dl (3.4-5.0); Aspartate Aminotransferase 17 U/L (15-37); BUN Creatinine Ratio 13.5 (10-20); Bilirubin Direct 0.2 mg/dl (0-0.2); Blood Urea Nitrogen 19 mg/dl (7-18); Calcium 9.3 mg/dl (8.5-10.1); Carbon Dioxide 21 mmol/L (21-32); Chloride 103 mmol/L (98-107); Creatinine Clr Calc Pharmacy 28.7 ml/min; Est GFR (African American) 39.5 ml/min; Est GFR (Non-African American) 34.1 ml/min; Glucose 135 mg/dl (70-99); Lipase 115 U/L (73-393); Potassium 3.8 mmol/L (3.5-5.1); Sodium 134 mmol/L (136-145)
[2021-05-05 03:43] LABS: Alkaline Phosphatase 63 U/L (45-117); Bilirubin,Total 0.8 mg/dl (0.2-1); NT Pro B Type Natriuretic Pept 2137 pg/ml (0-1800); Total Protein 7.8 gm/dl (6.4-8.2); Troponin I < 0.015 ng/ml (0-0.045)
[2021-05-05 03:53] LABS: Influenza A virus by PCR Negative (Neg); Influenza B virus by PCR Negative (Neg); RSV by PCR Negative (Neg); SARS CoV2 RNA(COVID-19) InHosp NEGATIVE (Negative)
[2021-05-05] MEDS ORDERED: FAMOTIDINE 20MG/5ML IV PUSH IV STA (04:41)
--- NOTE | 2021-05-05 04:44 | History & Physical Report ---
Date of Service May 05, 2021 Assessment & Plan (1) Burning chest pain: Plan: Mrs. Carlson is an 81 yo woman who came to the ED for evaluation of a burning sensation of her chest and throat. - Etiology uncertain: favor acid reflux, as pain described as a heart burn and began after meal consumption. Famotidine 20mg IV ordered. It appears as though patient takes tums every morning - consider switching to an H2 brett for acid suppression. - cardiac origin unlikley, as HEART score is 3, low risk. EKG without signs of acute ischemia. Trop undetectable on admission - repeat in 6 hours. continue cardiac monitoring. (2) (HFpEF) heart failure with preserved ejection fraction: Plan: - history of - elevated BNP on admission at 2137 - pulmonary vasc congestion noted on CXR - suspect patient is in mild exacerbation due to dietary indiscretion (eg chili dogs) - Lasix 40mg IV ordered - continue metoprolol tartrate - most recent echo was in 2014 - order placed for repeat study (3) Leukocytosis: Plan: - WBC elevated to 15 - etiology uncertain: acute infection vs. myelodysplasia - procal not elevated - COVID/flu/RSV neg - UA pending - blood cultures pending - will hold off on empiric antibiotics - during previous admission it appears as though patient was worked up for multiple myeloma (4) Atrial fibrillation: Plan: - history of paroxysmal afib - EKG on admission showing NSR - on rhythm control with amiodarone and rate control with metoprolol - not on anticoagulation due to being a high fall risk (had 18 falls in 2 year period) - on high dose aspirin 324mg daily - [id number] score of 5 (5) Hypothyroidism: Plan: - continue home dose levothyroxine (6) Hypertension: Plan: - continue home dose amlodipine and metoprolol Diet: low sodium DVT ppx: Heparin 5,000 units SQ Dispo: Med/tele. PT/Ot ordered Code: DNR/DNI, I discussed with patient History of Present Illness Primary Care Provider: Alex Rizvi Jr, DO Mrs. Carlson is an 81 yo woman with a PMHx of paroxysmal atrial fibrillation and congestive heart failure with a preserved ejection fraction who presented for evaluation of a burning sensation in her chest. It started on the evening of 05/04/21 after eating chili dogs for dinner. She felt it across the left side of her chest and into her throat. She says it spontaneously resolved before she arrived at the [facility] ED. She denies any associated diaphoresis, shortness of breath, nausea/vomiting or diarrhea. She denies any family history of heart disease. Social Hx: She is a lifetime non-smoker. Lives at home - has a caregiver In the ED, she was afebrile, HR was 67, BP was 149/63. RR was 18, she was 87 on room air --> improved to 95 on 2L via NC. Her WBC was elevated to 15. Procal not elevated. Lactate not elevated. COVID/Flu/RSV neg. UA pending. Blood cultures pending. Hgb 11.4. MCV 96.5. Cr 1.42, BUN 19. Electrolytes normal. Lipase not elevated. Trop undetectable. BNP 2137. EKG showing NSR; poor R wave progression, QS complexes in v1-v2; LBBB, no acute ST segment changes. CXR showing evidence of pulmonary vascular congestion. Allergies Allergy/AdvReac Type Severity Reaction Status Date / Time metronidazole Allergy Intermediate GI SYMPTOMS Verified 03/21/20 08:54 Bactrim AdvReac Mild GI SYMPTOMS Unverified 12/21/17 08:00 Quinolones AdvReac Mild HIVES Verified 03/21/20 08:54 sulfamethoxazole AdvReac Mild GI SYMPTOMS Verified 03/21/20 08:54 trimethoprim AdvReac Mild GI SYMPTOMS Verified 03/21/20 08:54 Home Medications Medication Instructions Recorded Confirmed Type aspirin 325 mg tablet 325 mg PO QAM #100 tab 01/28/19 01/21/21 History calcium carbonate 600 mg calcium 600 mg PO QAM tab 01/28/19 01/21/21 History (1,500 mg) tablet (Calcium) metoprolol tartrate 50 mg tablet 50 mg PO QDD #30 tab 01/28/19 01/21/21 History (Lopressor) ondansetron 4 mg disintegrating 4 mg PO Q6H PRN #10 tab 02/15/19 01/21/21 Rx tablet levothyroxine 75 mcg capsule 75 mcg PO QAM 03/14/19 01/21/21 History amlodipine 10 mg tablet 10 mg PO QDD #90 tab 03/21/20 01/21/21 Rx furosemide 20 mg tablet (Lasix) 20 mg PO DAILY PRN #90 tab 06/24/20 01/21/21 Rx amiodarone 200 mg tablet 200 mg PO QDD #90 tab 12/30/20 01/21/21 Rx Past Med/Surg History Medical History (Updated 05/05/21 @ 06:01 by Cordell Jha MD) Afib Diverticulitis Hypertension Surgical History Hx of cholecystectomy Hx of hysterectomy Family History Other Family history non-contributory Social History Smoking Status: Never smoker Preferred Language: Omani marital status: current occupational status: retired Feels Safe at Home: Yes Review of Systems Review of Systems: All systems reviewed & are unremarkable except as noted in HPI & below Physical Exam Constitutional: WD/WN, vitals as above cooperative; no acute distress Eyes: PERRL, conjunctivae normal, anicteric sclerae ENMT: external ear and nose normal, oropharynx normal Ears: + hearing imp airment Neck: normal visual inspection and trachea midline Respiratory: normal respiratory effort; no respiratory distress Au scultation: + crackles (b/l lung bases) Cardiovascular: Rate/Rhythm: regular rate and regular rhythm Heart Sounds: normal S1, normal S2 and + murmur Extremities: + pedal edema (+1 b/l) Gastrointestinal (Abdomen): Inspection/Auscultation: abdomen normal to inspection and normal bowel sounds; abdomen not distended Percussion/Palpation: + abdomen tender (epigastrium) Musculoskeletal: Head/Neck/Chest: normocephalic and head atraumatic Skin: no rashes, warm and dry Neurologic: moves all extremities Psychiatric: A+Ox3, euthymic affect Results & Data Results & Data ([facility]) Vital Signs (Past 12 Hours) Vital Signs Temp Pulse Pulse Resp BP BP Pulse Ox 05/05/21 03:08 67 18 149/63 H 95 05/05/21 02:59 87 L 05/05/21 02:49 36.5 C 74 20 143/90 H 87 L Laboratory Results Laboratory Results WBC 15.95 K/uL (4.8-10.8) H 05/05/21 03:00 RBC 3.69 M/uL (4.2-5.4) L 05/05/21 03:00 Hgb 11.8 g/dL (12.0-16.0) L 05/05/21 03:00 Hct 35.6 % (37-47) L 05/05/21 03:00 MCV 96.5 fL (80-100) 05/05/21 03:00 MCH 32.0 pg (25-34) 05/05/21 03:00 MCHC 33.1 g/dL (32-36) 05/05/21 03:00 RDW Std Deviation 48.3 fL (36.4-46.3) H 05/05/21 03:00 RDW Coeff of Ursula 13.6 % (11.5-14.5) 05/05/21 03:00 Plt Count 236 K/uL (130-400) 05/05/21 03:00 MPV 11.4 fL (7.4-10.4) H 05/05/21 03:00 Immature Gran % (Auto) 0.4 % 05/05/21 03:00 Neut % (Auto) 65.6 % 05/05/21 03:00 Lymph % (Auto) 17.2 % 05/05/21 03:00 [place] % (Auto) 14.2 % 05/05/21 03:00 Eos % (Auto) 2.2 % 05/05/21 03:00 Baso % (Auto) 0.4 % 05/05/21 03:00 Neut # (Auto) 10.47 K/uL (1.4-6.5) H 05/05/21 03:00 Lymph # (Auto) 2.74 K/uL (1.2-3.4) 05/05/21 03:00 [place] # (Auto) 2.27 K/uL (0.11-0.59) H 05/05/21 03:00 Eos # (Auto) 0.35 K/uL (0-0.5) 05/05/21 03:00 Baso # (Auto) 0.06 K/uL (0-0.2) 05/05/21 03:00 Immature Gran # (Auto) 0.06 K/uL (0.00-0.02) H 05/05/21 03:00 Sodium 134 mmol/L (136-145) L 05/05/21 03:00 Potassium 3.8 mmol/L (3.5-5.1) 05/05/21 03:00 Chloride 103 mmol/L (98-107) 05/05/21 03:00 Carbon Dioxide 21 mmol/L (21-32) 05/05/21 03:00 Anion Gap 10.0 (3-11) 05/05/21 03:00 BUN 19 mg/dl (7-18) H 05/05/21 03:00 Creatinine 1.42 mg/dl (0.6-1.2) H 05/05/21 03:00 Est Cr Clr Drug Dosing 28.7 ml/min 05/05/21 03:00 Est GFR ( Amer) 39.5 ml/min 05/05/21 03:00 Est GFR (Non-Af Amer) 34.1 ml/min 05/05/21 03:00 BUN/Creatinine Ratio 13.5 (10-20) 05/05/21 03:00 Glucose 135 mg/dl (70-99) H 05/05/21 03:00 Lactate 0.9 mmol/L (0.4-2.0) 05/05/21 03:43 Calcium 9.3 mg/dl (8.5-10.1) 05/05/21 03:00 Total Bilirubin 0.8 mg/dl (0.2-1) 05/05/21 03:00 Direct Bilirubin 0.2 mg/dl (0-0.2) 05/05/21 03:00 AST 17 U/L (15-37) 05/05/21 03:00 ALT 18 (12-78) 05/05/21 03:00 Alkaline Phosphatase 63 U/L (45-117) 05/05/21 03:00 Troponin I < 0.015 ng/ml (0-0.045) 05/05/21 03:00 NT-Pro-B Natriuret Pep 2137 pg/ml (0-1800) H 05/05/21 03:00 Total Protein 7.8 gm/dl (6.4-8.2) 05/05/21 03:00 Albumin 3.6 gm/dl (3.4-5.0) 05/05/21 03:00 Lipase 115 U/L (73-393) 05/05/21 03:00 Procalcitonin < 0.05 ng/ml (0-0.5) 05/05/21 03:00 Urine Color Yellow 05/05/21 04:44 Urine Appearance Clear (Clear) 05/05/21 04:44 Urine pH 5.5 (4.5-7.5) 05/05/21 04:44 Ur Specific [place] 1.014 (1.000-1.030) 05/05/21 04:44 Urine Protein Negative (Negative) 05/05/21 04:44 Urine Glucose (UA) Negative (Negative) 05/05/21 04:44 Urine Ketones Trace (Negative) H 05/05/21 04:44 Urine Blood Negative (Negative) 05/05/21 04:44 Urine Nitrite Negative (Negative) 05/05/21 04:44 Urine Bilirubin Negative (Negative) 05/05/21 04:44 Urine Urobilinogen Negative (Negative) 05/05/21 04:44 Ur Leukocyte Esterase 2+ (Negative) H 05/05/21 04:44 Urine WBC (Auto) >30 /hpf (0-5) H 05/05/21 04:44 Urine RBC (Auto) 5-10 /hpf (0-4) H 05/05/21 04:44 U Hyaline Cast (Auto) 1-5 /lpf (0-5) 05/05/21 04:44 U Epithel Cells (Auto) >30 /lpf (0-5) H 05/05/21 04:44 Urine Bacteria (Auto) Negative (Negative) 05/05/21 04:44 Urine Yeast Not Reportable 05/05/21 04:44 SARS-CoV-2 (PCR) NEGATIVE (Negative) 05/05/21 03:00 Influenza Type A (PCR) Negative (Neg) 05/05/21 03:00 Influenza Type B (PCR) Negative (Neg) 05/05/21 03:00 RSV (RT-PCR) Negative (Neg) 05/05/21 03:00 Supervising Physician Co-Signing Physician Notes Patient seen and examined, chart reviewed, case discussed with Dr. Narayan and I agree with her assessment and plan as above. In brief, patient is an 81yo female with history of PAF, HFpEF presenting with chest burning that started after dinner last night. Patient hypoxic in the ER to 87% on RA. On exam patient is resting comfortably, 2L O2 in place with sats of 90% - increased to 4L Hard of hearing Dry MM, Neck supple +S1/S2, regular, no m/r/g Lungs with crackles in bilateral bases and in right mid-lung field Abd - +BS, soft, NT/ND Ext - trace edema Labs and images reviewed. WBC=15.95 Hgb=11.8 which is down 2 points from 04/15/21 Qr=460 Trop is NEG BNP 2137 Procalcitonin is NEG CXR appears to have bilateral airspace disease mostly in lower lung ludwig EKG with TWI in inferior leads Assessment/Plan -monitoring tech -Repeat troponin -Lasix given - monitor diuretic response -Supplemental O2 as needed -Monitor for infection - elevated WBC with bands and neutrophil predominance, awaiting UA and cultures Remainder as above Resident Activity Tracking Resident Involvement: Resident Care Provided Care Provided: Adult Hospital Medicine
[2021-05-05 05:10] LABS: Appearance Urine Clear (Clear); Bacteria Urine Automated Negative (Negative); Bilirubin Urine Negative (Negative); Blood Urine Negative (Negative); Color Urine Yellow; Epithelial Cell Urine Auto >30 /lpf (0-5); Glucose Urine UA Negative (Negative); Ketones Urine Trace (Negative); Leukocyte Esterase Urine 2+ (Negative); Nitrite Urine Negative (Negative); Protein Urine Negative (Negative); Specific Gravity Urine 1.014 (1.000-1.030); Urobilinogen Urine Negative (Negative); WBC Urine Automated >30 /hpf (0-5); pH Urine 5.5 (4.5-7.5)
[2021-05-05] MEDS ORDERED: ACETAMINOPHEN 325 MG TAB PO PRN (06:02)
[2021-05-05] MEDS ORDERED: ONDANSETRON INJ 2 MG/ML 2 ML VIAL IV PRN (06:02)
[2021-05-05] MEDS ORDERED: NITROGLYCERIN SL 0.4 MG/TAB TAB SL PRN (06:02)
[2021-05-05] MEDS ORDERED: FUROSEMIDE 40 MG/4 ML VIAL IV ONE ×2 (06:02→17:00)
[2021-05-05] MEDS ORDERED: POLYETHYLENE (MIRALAX) 17 GM PACK PO PRN (06:02)
--- NOTE | 2021-05-05 06:43 | Billing Data ---
Date of Service May 05, 2021 Coding Level of Care Code INT OBSERVATION CARE 70M LVL 3
--- NOTE | 2021-05-05 07:31 | XRay Report ---
XR chest 1V portable HISTORY: Atypical chest pain, hypoxia COMPARISON: Chest 07/19/2019. FINDINGS: No pneumothorax. There are small bilateral pleural effusions. The heart remains mildly enla rged. Diffuse interstitial thickening with hazy bibasilar airspace opacities have slightly progressed . There are calcifications within the aortic knob. IMPRESSION: Interval progression of the diffuse interstitial thickening and small bilateral pleural effusions. Th is favors pulmonary edema. ACT 112: Negative or not required by law. Electronically signed by: Js Rowe M.D. 05/05/2021 7:30 AM
--- NOTE | 2021-05-05 07:50 | Electrocardiogram Report ---
Test Reason : Blood Pressure : / mmHG Vent. Rate : 071 BPM Atrial Rate : 071 BPM P-R Int : 316 ms QRS Dur : 136 ms QT Int : 462 ms P-R-T Axes : 079 079 -19 degrees QTc Int : 502 ms Poor data quality, interpretation may be adversely affected Sinus rhythm with 1st degree A-V block Non-specific intra-ventricular conduction block Possible Lateral infarct , age undetermined T wave abnormality, consider inferior ischemia Abnormal ECG When compared with ECG of 19-JUL-2019 08:46, T wave inversion now evident in Inferior leads Confirmed by Shravan Trinidad ([id number]) on 05/05/2021 7:50:37 AM Referred By: REFERRED SELF Confirmed By:Sohail Trinidad
[2021-05-05] MEDS: LEVOTHYROXINE SODIUM 75 MCG TABLET PO SCH (08:07)
[2021-05-05] MEDS: HEPARIN SOD 5,000 UNIT/0.5 ML VIAL SQ SCH ×2 (09:14→21:19)
[2021-05-05] MEDS: ASPIRIN 325 MG ECTAB PO SCH (09:14)
[2021-05-05] MEDS ORDERED: OPTIRAY 320 125ml IV ONE (09:50)
--- NOTE | 2021-05-05 10:01 | XCELERA ---
[id number] \\[id number]
--- NOTE | 2021-05-05 10:18 | CT Scan Report ---
CHEST CTA for PULMONARY ARTERIES CT DOSE: 843.57 mGy.cm HISTORY: Shortness of breath. Atypical chest pain. TECHNIQUE: Multiaxial CT images of the chest were performed following the intravenous administration of contrast to evaluate the pulmonary arteries. Maximal intensity projection images were also obtaine d. A dose lowering technique was utilized adhering to the principles of ALARA. COMPARISON STUDY: Chest 05/05/2021. FINDINGS: Limited views the upper abdomen demonstrate normal liver and spleen. Small right and trace left pleural effusions are noted. No pericardial effusion. The cardiac silhouette is mildly enlarged. This is likely accentuated by the rectus excavatum deformity. No mediastinal or hilar lymphadenopath y. Normal esophagus. Normal caliber thoracic aorta with no evidence for dissection. Moderate calcifie d plaque within the coronary arteries. Nondiagnostic evaluation of the majority of the segmental and subsegmental pulmonary arteries due to the respiratory motion artifact. Otherwise, the main and lobar pulmonary arteries appear patent with no filling defects to suggest a pulmonary embolus. No fracture s within the visualized osseous structures. No pneumothorax. The central airways are patent. A 6 mm n odular density within the left lung apex on image 201 favors an impacted bronchus. Mild right apical scarlike densities are noted. Scattered patchy groundglass airspace opacities most pronounced within the mid to lower lung zones. This favors a viral pneumonia. Superimposed pulmonary edema could also h ave a similar appearance given the mild interlobular septal thickening. IMPRESSION: 1. No evidence for central pulmonary embolus with limitations as described above. History of 2. Patchy bilateral airspace opacities favoring a multifocal viral pneumonia. Superimposed pulmonary edema could also have a similar appearance. 3. Small right and trace left pleural effusions. ACT 112: Negative or not required by law. Electronically signed by: Js Rowe M.D. 05/05/2021 10:17 AM
[2021-05-05 14:34] LABS: Basophils # (auto) 0.02 K/uL (0-0.2); Basophils % (auto) 0.1 %; Hematocrit (blood only) 34.7 % (37-47); Hemoglobin 11.7 g/dL (12.0-16.0); Immature Granulocytes # (auto) 0.05 K/uL (0.00-0.02); Immature Granulocytes % (auto) 0.3 %; Lymphocytes # (auto) 1.11 K/uL (1.2-3.4); Lymphocytes % (auto) 7.3 %; Mean Corpuscular Hgb Conc 33.7 g/dL (32-36); Mean Corpuscular Volume 94.8 fL (80-100); Mean Platelet Volume 11.4 fL (7.4-10.4); Monocytes # (auto) 2.28 K/uL (0.11-0.59); Neutrophils # (auto) 11.77 K/uL (1.4-6.5); Neutrophils % (auto) 77.3 %; Platelet Count 190 K/uL (130-400); RDW Coefficient of Variation 13.3 % (11.5-14.5); RDW Standard Deviation 45.9 fL (36.4-46.3); Red Blood Count 3.66 M/uL (4.2-5.4); White Blood Count 15.23 K/uL (4.8-10.8)
[2021-05-05] MEDS ORDERED: AZITHROMYCIN 500 MG in DEXTROSE 5% 250 ML IV STA (15:58)
[2021-05-05] MEDS ORDERED: levoFLOXacin/D5W 500 MG/100 ML BAG IV SCH (16:00)
--- NOTE | 2021-05-05 16:17 | Hospitalist Progress Note ---
Date of Service May 05, 2021 Assessment & Plan (1) Burning chest pain: Plan: Mrs. Carlson is an 81 yo woman who came to the ED for evaluation of a burning sensation of her chest and throat. - Etiology uncertain: favor acid reflux, as pain described as a heart burn and began after meal consumption. Famotidine 20mg IV ordered. - start on oral PPI in AM - cardiac origin unlikley, as HEART score is 3, low risk. EKG without signs of acute ischemia. Trop negative x 2 - echo updated - obtained CTA chest, negative for PE (2) (HFpEF) heart failure with preserved ejection fraction: Plan: - history of - elevated BNP on admission at 2137 - pulmonary vasc congestion noted on CXR - suspect patient is in mild exacerbation due to dietary indiscretion (eg chili dogs) - Lasix 40mg IV orderedx1 by admitting team, second dose ordered this afternoon - monitor urine output - continue metoprolol tartrate - Echo updated today--LVEF 60-65%, mod to severe MR, mild MS, mild AR, RSVP elevated at 40-50mmHg (3) Leukocytosis: Plan: - WBC elevated at 15,000 w/ left shift - COVID/Flu/RSV negative - UA positive for 2+ leuk esterase and >30 wbc, but also >30 epithelial cells, ?contaminated specimen - Urine culture is pending - CTA chest obtained -- note results above - Blood cultures pending - No empiric abx started by admitting team, however, w/ BL opacities, leukocytosis, and hypoxia, will initiate empiric abx for CAP with Zithromax and Rocephin - Pt has a reported allergy to FQ (4) Bilateral pneumonia: Plan: - Viral v bacterial - See as above, empiric Rocephin and Zithromax - Add mucolytics - Duonebs QID (5) Hypoxia: Plan: - Plan as above (6) Atrial fibrillation: Plan: - history of paroxysmal afib - EKG on admission showing NSR - on rhythm control with amiodarone and rate control with metoprolol - not on anticoagulation due to being a high fall risk (had 18 falls in 2 year period) - on high dose aspirin 324mg daily - [id number] score of 5 (7) Hypothyroidism: Plan: - continue home dose levothyroxine (8) Hypertension: Plan: - continue home dose amlodipine and metoprolol Plan: Diet: low sodium DVT ppx: Heparin 5,000 units SQ Dispo: med-tele. PT/OT nathaniel. Code: DNR/DNI, I confirmed this with the patient during my visit Follow up labs in AM Admission and Anticipated Discharge Date Admission Date: May 05, 2021 Subjective Ms. Carlson was seen on rounds this morning. Pt hospitalized early this AM (05/05) with c/o chest pain. Her ER work up demonstrated findings of le ukocytosis with left shift but unclear etiology. She was also hypoxic and has been placed on supplemental O2. CXR favored pulmonary edema, she was diuresed with a Lasix 40mg IV x1 dose by admitting team. On rounds, pt reports that she has shortness of breath mainly with exertion, denies dyspnea at rest. She had left sided burning chest discomfort which is now better. She denies fever, chills, n/v/d, headache, or gu symptoms. Thus far, her cardiac work up is unremarkable, troponins negative x2 and EKG nonacute. Started on Pepcid for her burning chest discomfort which was suspected to be more reflux related. Review of Systems Review of Systems: CONSTITUTIONAL: Denies weight loss/gain, fever and chills, fatigue, malaise, generalized weakness. HEENT: Denies changes in vision and hearing. RESPIRATORY: +MASSEY. Denies SOB at rest, wheezing. CV: +LE edema. Denies palpitations, CP, orthopnea, PND. GI: Denies abdominal pain, nausea, vomiting and diarrhea. : Denies dysuria and urinary frequency, urgency, hesitancy. MUSCULOSKELETAL: Denies myalgia and joint pain. SKIN: Denies rash and pruritus. NEUROLOGICAL: Denies headache, syncope, focal weakness, numbness, tingling. PSYCHIATRIC: Denies recent changes in mood. Denies anxiety and depression. Physical Exam Physical Exam: GENERAL: 81 yo WD/WN elderly WF. NAD. LUNGS: Nonlabored. Scattered crackles throughout. No wheezes or rhonchi. CARDIOVASCULAR: RRR w/ 2/6 LAUREN. No gallops or rubs. ABDOMEN: Soft, NT, ND, +BS throughout all quadrants. EXTREMITIES: 2+ pitting edema b/l. Non-tender. Peripheral pulses +2/4. NEUROLOGIC: A&O x3. PSYCHIATRIC: Cooperative. Appropriate mood and affect. SKIN: Warm, dry, intact. No rashes or lesions. Results & Data Results & Data ([facility]) Vital Signs (Past 12 Hours) Vital Signs Temp Pulse Resp BP Pulse Ox Pulse Ox Pulse Ox 05/05/21 14:27 97 05/05/21 11:43 70 21 148/56 H 98 05/05/21 08:12 36.8 C 72 20 138/61 94 05/05/21 07:54 93 05/05/21 06:27 62 18 129/64 90 05/05/21 06:25 90 Laboratory Results 05/05/21 14:25 05/05/21 03:00 Diagnostic Findings Chest X-Ray 05/05/21 03:00 XR chest 1V portable HISTORY: Atypical chest pain, hypoxia COMPARISON: Chest 07/19/2019. FINDINGS: No pneumothorax. There are small bilateral pleural effusions. The heart remains mildly enlarged. Diffuse interstitial thickening with hazy bibasilar airspace opacities have slightly progressed. There are calcifications within the aortic knob. IMPRESSION: Interval progression of the diffuse interstitial thickening and small bilateral pleural effusions. This favors pulmonary edema. ACT 112: Negative or not required by law. Electronically signed by: Js Rowe M.D. 05/05/2021 7:30 AM Chest CTA 05/05/21 08:08 CHEST CTA for PULMONARY ARTERIES CT DOSE: 843.57 mGy.cm HISTORY: Shortness of breath. Atypical chest pain. TECHNIQUE: Multiaxial CT images of the chest were performed following the intravenous administration of contrast to evaluate the pulmonary arteries. Maximal intensity projection images were also obtained. A dose lowering technique was utilized adhering to the principles of ALARA. COMPARISON STUDY: Chest 05/05/2021. FINDINGS: Limited views the upper abdomen demonstrate normal liver and spleen. Small right and trace left pleural effusions are noted. No pericardial effusion. The cardiac silhouette is mildly enlarged. This is likely accentuated by the rectus excavatum deformity. No mediastinal or hilar lymphadenopathy. Normal esophagus. Normal caliber thoracic aorta with no evidence for dissection. Moderate calcified plaque within the coronary arteries. Nondiagnostic evaluation of the majority of the segmental and subsegmental pulmonary arteries due to the respiratory motion artifact. Otherwise, the main and lobar pulmonary arteries appear patent with no filling defects to suggest a pulmonary embolus. No fractures within the visualized osseous structures. No pneumothorax. The central airways are patent. A 6 mm nodular density within the left lung apex on image 201 favors an impacted bronchus. Mild right apical scarlike densities are noted. Scattered patchy groundglass airspace opacities most pronounced within the mid to lower lung zones. This favors a viral pneumonia. Superimposed pulmonary edema could also have a similar appearance given the mild interlobular septal thickening. IMPRESSION: 1. No evidence for central pulmonary embolus with limitations as described above. History of 2. Patchy bilateral airspace opacities favoring a multifocal viral pneumonia. Superimposed pulmonary edema could also have a similar appearance. 3. Small right and trace left pleural effusions. ACT 112: Negative or not required by law. Electronically signed by: Js Rowe M.D. 05/05/2021 10:17 AM PG Care Time/CCT Total # of Minutes Spent Total Time Spent with Patient: Total time spent is greater than 50% in coordination of care (as documented) at patient's floor/unit and/or counseling patient: Coding Level of Care Code 05470 Subseq Obs Care Lvl 3 Diagnoses Burning chest pain R07.89 (HFpEF) heart failure with preserved ejection fraction I50.30 Leukocytosis D72.829 Atrial fibrillation I48.91 Hypothyroidism E03.9 Hypertension I10 Bilateral pneumonia J18.9 Hypoxia R09.02
[2021-05-05] MEDS: cefTRIAXone SODIUM 1,000 MG in DEXTROSE 5% 50 ML IV SCH (16:30)
[2021-05-05] MEDS: amLODIPine BESYLATE 5 MG TAB PO SCH (16:53)
[2021-05-05] MEDS: AMIODARONE 200 MG TAB PO SCH (16:53)
[2021-05-05] MEDS: METOPROLOL TARTRATE 50 MG TAB PO SCH (16:53)
[2021-05-05] MEDS: ALBUT/IPRATROP 3MG/0.5MG NEB 3 ML VIAL NEB SCH (19:14)
[2021-05-05] MEDS: guaiFENesin 600 MG TABCR PO SCH (21:19)
[2021-05-06 05:12] LABS: Basophils # (auto) 0.04 K/uL (0-0.2); Basophils % (auto) 0.3 %; Eosinophils # (auto) 0.03 K/uL (0-0.5); Eosinophils % (auto) 0.2 %; Hematocrit (blood only) 32.4 % (37-47); Hemoglobin 10.9 g/dL (12.0-16.0); Immature Granulocytes # (auto) 0.03 K/uL (0.00-0.02); Immature Granulocytes % (auto) 0.2 %; Lymphocytes # (auto) 1.74 K/uL (1.2-3.4); Lymphocytes % (auto) 14.2 %; Mean Corpuscular Hemoglobin 32.2 pg (25-34); Mean Corpuscular Hgb Conc 33.6 g/dL (32-36); Mean Corpuscular Volume 95.9 fL (80-100); Mean Platelet Volume 11.6 fL (7.4-10.4); Monocytes # (auto) 1.63 K/uL (0.11-0.59); Monocytes % (auto) 13.3 %; Neutrophils # (auto) 8.82 K/uL (1.4-6.5); Neutrophils % (auto) 71.8 %; Platelet Count 189 K/uL (130-400); RDW Coefficient of Variation 13.8 % (11.5-14.5); Red Blood Count 3.38 M/uL (4.2-5.4); White Blood Count 12.29 K/uL (4.8-10.8)
[2021-05-06] MEDS: ALBUT/IPRATROP 3MG/0.5MG NEB 3 ML VIAL NEB SCH (05:14)
[2021-05-06 05:48] LABS: BUN Creatinine Ratio 15.2 (10-20); Calcium 9.1 mg/dl (8.5-10.1); Creatinine Clr Calc Pharmacy 29.2 ml/min; Est GFR (African American) 40.2 ml/min; Est GFR (Non-African American) 34.7 ml/min; Potassium 3.6 mmol/L (3.5-5.1)
[2021-05-06] MEDS: LEVOTHYROXINE SODIUM 75 MCG TABLET PO SCH (06:39)
[2021-05-06] MEDS ORDERED: ALBUT/IPRATROP 3MG/0.5MG NEB 3 ML VIAL NEB PRN (07:30)
[2021-05-06] MEDS ORDERED: FUROSEMIDE 40 MG/4 ML VIAL IV ONE (08:26)
--- NOTE | 2021-05-06 10:53 | Hospitalist Progress Note ---
Date of Service May 06, 2021 Assessment & Plan (1) Burning chest pain: Plan: Mrs. Carlson is an 81 yo woman who came to the ED for evaluation of a burning sensation of her chest and throat. - Etiology: favor acid reflux, as pain described as a heart burn and began after meal consumption. Famotidine IV ordered, will d/c. - started on oral PPI this AM - cardiac origin unlikely, as HEART score is 3, low risk. EKG without signs of acute ischemia. Trop negative x 2 - echo updated - obtained CTA chest, negative for PE (2) (HFpEF) heart failure with preserved ejection fraction: Plan: - elevated proBNP on admission at 2137 - pulmonary vasc congestion noted on CXR - suspect patient is in mild exacerbation due to dietary indiscretion (eg chili dogs) - Lasix 40mg IV ordered x 2 yesterday, will give a third dose this AM - monitor urine output -- no documentation, no idea how much she diuresed yesterday - continue metoprolol tartrate - Echo updated today--LVEF 60-65%, mod to severe MR, mild MS, mild AR, RSVP elevated at 40-50mmHg (3) Leukocytosis: Plan: - WBC elevated at 15,000 w/ left shift -- downtrended today to 12,200 - COVID/Flu/RSV negative - UA positive for 2+ leuk esterase and >30 wbc, but also >30 epithelial cells, culture suggests contamination - Urine culture is pending - CTA chest obtained -- neg for PE but noted b/l opacities - Blood cultures pending - No empiric abx started by admitting team, however, w/ BL opacities, leukocytosis, and hypoxia, will initiate empiric abx for CAP with Zithromax and Rocephin - Pt has a reported allergy to FQ (4) Bilateral pneumonia: Plan: - Viral v bacterial - See as above, empiric Rocephin and Zithromax - Add mucolytics - Duonebs QID (5) Hypoxia: Plan: - Plan as above - 90% on room air as of most recent documentation; pt is asymptomatic - Will require two step prior to d/c - Only utilize supplemental O2 if pulse ox <88% (6) Atrial fibrillation: Plan: - history of paroxysmal afib - EKG on admission showing NSR - on rhythm control with amiodarone and rate control with metoprolol - not on anticoagulation due to being a high fall risk (had 18 falls in 2 year period) - on high dose aspirin 324mg daily - [id number] score of 5 (7) Hypothyroidism: Plan: - continue home dose levothyroxine (8) Hypertension: Plan: - continue home dose amlodipine and metoprolol Plan: Diet: low sodium DVT ppx: Heparin 5,000 units SQ Dispo: Full admit, at this point can go to med/surg Code: DNR/DNI, I confirmed this with the patient during my visit OT assessed pt while in ED, not assessed yet by PT Anticipate pt can go home with home health in the next 24-48 hours Admission and Anticipated Discharge Date Admission Date: May 06, 2021 Subjective Ms. Carlson was seen on rounds this morning. Pt remains in ED hold, waiting for a bed. She verbalizes no complaints today other than insisting that she did not get her Synthroid pill. RN documented that it was administered at 0630 this AM. She denies dyspnea at rest, currently off supplemental O2 and sitting up in chair eating. Pulse ox 88-91%. She called EMS due to burning L sided chest discomfort that resolved by the time they arrived. At this point, cardiac work up is negative. She has had no recurrence of the discomfort. She has been diuresed with two doses of Lasix thus far and initiated on antibiotics due to findings concerning for pneumonia on CT imaging. She denies fever, chills, n/v/d, headache, or gu symptoms. Review of Systems Review of Systems: CONSTITUTIONAL: Denies weight loss/gain, fever and chills, fatigue, malaise, generalized weakness. HEENT: Denies changes in vision and hearing. RESPIRATORY: +MASSEY. Denies SOB at rest, wheezing. CV: +LE edema. Denies palpitations, CP, orthopnea, PND. GI: Denies abdominal pain, nausea, vomiting and diarrhea. : Denies dysuria and urinary frequency, urgency, hesitancy. MUSCULOSKELETAL: Denies myalgia and joint pain. SKIN: Denies rash and pruritus. NEUROLOGICAL: Denies headache, syncope, focal weakness, numbness, tingling. PSYCHIATRIC: Denies recent changes in mood. Denies anxiety and depression. Physical Exam Physical Exam: GENERAL: 81 yo WD/WN elderly WF. NAD. LUNGS: Nonlabored. Decreased air exchange, fine crackles in bases b/l. CARDIOVASCULAR: RRR w/ 2/6 LAUREN. No gallops or rubs. ABDOMEN: Soft, NT, ND, +BS throughout all quadrants. EXTREMITIES: 1+ pitting edema b/l. Non-tender. Peripheral pulses +2/4. NEUROLOGIC: A&O x3. PSYCHIATRIC: Cooperative. Appropriate mood and affect. SKIN: Warm, dry, intact. No rashes or lesions. Results & Data Results & Data ([facility]) Vital Signs (Past 12 Hours) Vital Signs Temp Pulse Resp BP Pulse Ox Pulse Ox 05/06/21 08:34 90 05/06/21 08:31 97 05/06/21 05:14 63 18 96 05/06/21 05:00 60 20 117/60 96 05/06/21 04:00 61 20 96 05/05/21 23:00 36.6 C 62 21 119/47 L 93 Laboratory Results 05/06/21 04:49 05/06/21 04:49 PG Care Time/CCT Total # of Minutes Spent Total Time Spent with Patient: Total time spent is greater than 50% in coordination of care (as documented) at patient's floor/unit and/or counseling patient: Coding Level of Care Code 69729 Subseq Hosp Care Lvl 2 Diagnoses Burning chest pain R07.89 (HFpEF) heart failure with preserved ejection fraction I50.30 Leukocytosis D72.829 Bilateral pneumonia J18.9 Hypoxia R09.02 Atrial fibrillation I48.91 Hypothyroidism E03.9 Hypertension I10
[2021-05-06] MEDS: AZITHROMYCIN 250 MG TAB PO SCH (10:59)
[2021-05-06] MEDS: ASPIRIN 325 MG ECTAB PO SCH (10:59)
[2021-05-06] MEDS: guaiFENesin 600 MG TABCR PO SCH ×2 (11:00→22:02)
[2021-05-06] MEDS: PANTOprazole 40 MG TAB PO SCH (11:01)
[2021-05-06] MEDS: HEPARIN SOD 5,000 UNIT/0.5 ML VIAL SQ SCH ×2 (11:01→22:01)
[2021-05-06] MEDS: cefTRIAXone SODIUM 1,000 MG in DEXTROSE 5% 50 ML IV SCH (16:47)
[2021-05-06] MEDS: amLODIPine BESYLATE 5 MG TAB PO SCH (16:48)
[2021-05-06] MEDS: AMIODARONE 200 MG TAB PO SCH (16:48)
[2021-05-06] MEDS: METOPROLOL TARTRATE 50 MG TAB PO SCH (16:48)
[2021-05-07] MEDS: LEVOTHYROXINE SODIUM 75 MCG TABLET PO SCH (06:32)
[2021-05-07] MEDS: ASPIRIN 325 MG ECTAB PO SCH (08:40)
[2021-05-07] MEDS: PANTOprazole 40 MG TAB PO SCH (08:41)
[2021-05-07] MEDS: AZITHROMYCIN 250 MG TAB PO SCH (08:41)
[2021-05-07] MEDS: guaiFENesin 600 MG TABCR PO SCH (08:41)
[2021-05-07] MEDS: HEPARIN SOD 5,000 UNIT/0.5 ML VIAL SQ SCH (08:42)
[2021-05-07 09:11] LABS: Basophils # (auto) 0.06 K/uL (0-0.2); Basophils % (auto) 0.6 %; Eosinophils # (auto) 0.15 K/uL (0-0.5); Eosinophils % (auto) 1.5 %; Hematocrit (blood only) 32.4 % (37-47); Hemoglobin 10.8 g/dL (12.0-16.0); Immature Granulocytes # (auto) 0.04 K/uL (0.00-0.02); Immature Granulocytes % (auto) 0.4 %; Lymphocytes # (auto) 1.53 K/uL (1.2-3.4); Lymphocytes % (auto) 15.6 %; Mean Corpuscular Hemoglobin 31.8 pg (25-34); Mean Corpuscular Volume 95.3 fL (80-100); Mean Platelet Volume 11.8 fL (7.4-10.4); Monocytes % (auto) 13.3 %; Neutrophils # (auto) 6.73 K/uL (1.4-6.5); Neutrophils % (auto) 68.6 %; Platelet Count 226 K/uL (130-400); RDW Coefficient of Variation 13.6 % (11.5-14.5); RDW Standard Deviation 47.1 fL (36.4-46.3); White Blood Count 9.81 K/uL (4.8-10.8)
[2021-05-07 09:14] LABS: Mean Corpuscular Hgb Conc 33.3 g/dL (32-36)
[2021-05-07 09:36] LABS: BUN Creatinine Ratio 16.3 (10-20); Est GFR (African American) 48.4 ml/min; Est GFR (Non-African American) 41.8 ml/min; Potassium 3.4 mmol/L (3.5-5.1)
--- NOTE | 2021-05-07 11:49 | Discharge Summary ---
Date of Service May 07, 2021 Admission HPI Per Admitting Provider Mrs. Carlson is an 81 yo woman with a PMHx of paroxysmal atrial fibrillation and congestive heart failure with a preserved ejection fraction who presented for evaluation of a burning sensation in her chest. It started on the evening of 05/04/21 after eating chili dogs for dinner. She felt it across the left side of her chest and into her throat. She says it spontaneously resolved before she arrived at the [facility] ED. She denies any associated diaphoresis, shortness of breath, nausea/vomiting or diarrhea. She denies any family history of heart disease. Social Hx: She is a lifetime non-smoker. Lives at home - has a caregiver In the ED, she was afebrile, HR was 67, BP was 149/63. RR was 18, she was 87 on room air --> improved to 95 on 2L via NC. Her WBC was elevated to 15. Procal not elevated. Lactate not elevated. COVID/Flu/RSV neg. UA pending. Blood cultures pending. Hgb 11.4. MCV 96.5. Cr 1.42, BUN 19. Electrolytes normal. Lipase not elevated. Trop undetectable. BNP 2137. EKG showing NSR; poor R wave progression, QS complexes in v1-v2; LBBB, no acute ST segment changes. CXR showing evidence of pulmonary vascular congestion. She was diuresed with a dose of IV Lasix and admitted for further evaluation and care. Principal Diagnosis 1. Acute Biventricular CHF Exacerbation 2. Bilateral Pneumonia 3. Chest pain due to acid reflux 4. Hypoxia -- resolved Discharge Exam Vital Signs Temp Pulse Pulse Pulse Pulse Resp Resp 05/07/21 10:51 87 88 74 20 05/07/21 07:15 36.7 C 63 16 05/07/21 02:05 37.2 C 60 18 05/06/21 15:54 37 C 83 22 05/06/21 14:19 Resp Resp BP Pulse Ox Pulse Ox Pulse Ox Pulse Ox 05/07/21 10:51 16 16 92 91 98 05/07/21 07:15 137/68 95 05/07/21 02:05 124/55 L 93 05/06/21 15:54 137/57 L 93 05/06/21 14:19 92 GENERAL: 81 yo WD/WN elderly WF. NAD. LUNGS: Nonlabored. Fine bibasilar crackles. No wheezes/rhonchi. CARDIOVASCULAR: RRR w/ 2/6 LAUREN. No G/R. No JVD. ABDOMEN: Soft, non-tender and non-distended. No palpable masses. BS normal x 4 quad. EXTREMITIES: No edema. Non-tender. Peripheral pulses +2/4. NEUROLOGIC: A&O x3. PSYCHIATRIC: Cooperative. Appropriate mood and affect. SKIN: Warm, dry, intact. No rashes or lesions. Discharge Data Allergies Allergy/AdvReac Type Severity Reaction Status Date / Time metronidazole Allergy Intermediate GI SYMPTOMS Verified 05/05/21 08:23 Bactrim AdvReac Mild GI SYMPTOMS Unverified 12/21/17 08:00 Quinolones AdvReac Mild HIVES Verified 05/05/21 08:23 sulfamethoxazole AdvReac Mild GI SYMPTOMS Verified 05/05/21 08:23 trimethoprim AdvReac Mild GI SYMPTOMS Verified 05/05/21 08:23 Consultations None Procedures Performed None Ordered Studies 05/07/21 08:35 05/07/21 08:35 Chest X-Ray 05/05/21 03:00 XR chest 1V portable HISTORY: Atypical chest pain, hypoxia COMPARISON: Chest 07/19/2019. FINDINGS: No pneumothorax. There are small bilateral pleural effusions. The heart remains mildly enlarged. Diffuse interstitial thickening with hazy bibasilar airspace opacities have slightly progressed. There are calcifications within the aortic knob. IMPRESSION: Interval progression of the diffuse interstitial thickening and small bilateral pleural effusions. This favors pulmonary edema. ACT 112: Negative or not required by law. Electronically signed by: Js Rowe M.D. 05/05/2021 7:30 AM Chest CTA 05/05/21 08:08 CHEST CTA for PULMONARY ARTERIES CT DOSE: 843.57 mGy.cm HISTORY: Shortness of breath. Atypical chest pain. TECHNIQUE: Multiaxial CT images of the chest were performed following the intravenous administration of contrast to evaluate the pulmonary arteries. Maximal intensity projection images were also obtained. A dose lowering technique was utilized adhering to the principles of ALARA. COMPARISON STUDY: Chest 05/05/2021. FINDINGS: Limited views the upper abdomen demonstrate normal liver and spleen. Small right and trace left pleural effusions are noted. No pericardial effusion. The cardiac silhouette is mildly enlarged. This is likely accentuated by the rectus excavatum deformity. No mediastinal or hilar lymphadenopathy. Normal esophagus. Normal caliber thoracic aorta with no evidence for dissection. Moderate calcified plaque within the coronary arteries. Nondiagnostic evaluation of the majority of the segmental and subsegmental pulmonary arteries due to the respiratory motion artifact. Otherwise, the main and lobar pulmonary arteries appear patent with no filling defects to suggest a pulmonary embolus. No fractures within the visualized osseous structures. No pneumothorax. The central airways are patent. A 6 mm nodular density within the left lung apex on image 201 favors an impacted bronchus. Mild right apical scarlike densities are noted. Scattered patchy groundglass airspace opacities most pronounced within the mid to lower lung zones. This favors a viral pneumonia. Superimposed pulmonary edema could also have a similar appearance given the mild interlobular septal thickening. IMPRESSION: 1. No evidence for central pulmonary embolus with limitations as described above. History of 2. Patchy bilateral airspace opacities favoring a multifocal viral pneumonia. Superimposed pulmonary edema could also have a similar appearance. 3. Small right and trace left pleural effusions. ACT 112: Negative or not required by law. Electronically signed by: Js Rowe M.D. 05/05/2021 10:17 AM Echocardiogram: LV systolic function is normal. EF 60-65%. Aortic valve sclerosis mild, w/o significant aortic valvular stenosis. Mild aortic regurgitation. There is moderate to severe regurgitation. There is mild mitral stenosis. RVSP elevated at 40-50 mmHg Hospital Course (1) Burning chest pain: Mrs. Carlson is an 81 yo woman who came to the ED for evaluation of a burning sensation of her chest and throat. - Etiology: favor acid reflux, as pain described as a heart burn and began after meal consumption. Famotidine IV ordered, will d/c. - started on oral PPI this AM - cardiac origin unlikely, as HEART score is 3, low risk. EKG without signs of acute ischemia. Trop negative x 2 - echo updated as above - obtained CTA chest, negative for PE (2) (HFpEF) heart failure with preserved ejection fraction: - elevated proBNP on admission at 2137 - pulmonary vasc congestion noted on CXR - suspect patient is in mild exacerbation due to dietary indiscretion (eg chili dogs) - Lasix 40mg IV ordered x 2 yesterday, will give a third dose this AM - monitor urine output -- no documentation, no idea how much she diuresed yesterday - continue metoprolol tartrate - Echo updated today--LVEF 60-65%, mod to severe MR, mild MS, mild AR, RSVP elevated at 40-50mmHg - Pt diuresed well, can transition back to her Lasix 20mg daily, would recommend close monitoring of weight and to double her Lasix if her weight goes up by 3 or more pounds over a day (3) Leukocytosis: - WBC elevated at 15,000 w/ left shift on admission, normalized with addition of abx for PNA - COVID/Flu/RSV negative - UA positive for 2+ leuk esterase and >30 wbc, but also >30 epithelial cells, culture suggests contamination - Urine culture contaminated specimen - CTA chest obtained -- neg for PE but noted b/l opacities - Blood cultures no growth - No empiric abx started by admitting team, however, w/ BL opacities, leukocytosis, and hypoxia, abx ordered on 05/05 for CAP with Zithromax and Rocephin (4) Bilateral pneumonia: - Viral v bacterial - See as above, empiric Rocephin and Zithromax - mucolytics - Duonebs QID while in house - Will transition to Cefdinir 300mg BID x 4 more days (to complete total of 7 days of abx) (5) Hypoxia: - Plan as above - 90% on room air as of most recent documentation; pt is asymptomatic - Will require two step prior to d/c - Only utilize supplemental O2 if pulse ox <88% - Pt has been weaned off O2, pulse ox mid to upper 90s on room air at rest - Two step pulse ox performed by RT and pt did NOT desaturate, will not require home O2 (6) Atrial fibrillation: - history of paroxysmal afib - EKG on admission showing NSR - on rhythm control with amiodarone and rate control with metoprolol - not on anticoagulation due to being a high fall risk (had 18 falls in 2 year period) - on high dose aspirin 324mg daily - [id number] score of 5 (7) Hypothyroidism: - continue home dose levothyroxine (8) Hypertension: - continue home dose amlodipine and metoprolol Diet: low sodium DVT ppx: Heparin 5,000 units SQ Dispo: Full admit, at this point can go to med/surg Code: DNR/DNI, I confirmed this with the patient during my visit PT/OT nathaniel'jacquie pt in the hospital, home w/ home health advised. Will have CM arrange this. Patient is otherwise medically stable for discharge home today. Advise outpatient follow up with her PCP within 1 week. Would consider referral to cardiology to discuss mitral valve repair/replacement. Total Time Total Time Spent Total Time Spent (In Minutes): >30 minutes Discharge Plan Discharge Items Patient Disposition: Home - Home Health Services Reason For Visit: CHEST PAIN Discharge Diagnosis: Congestive heart failure (fluid in the lungs) Chest pain Pneumonia Activity: Resume your previous activity Non-emergency contact: Primary Care Provider Call non-emergency contact if: you have any medication questions Follow-up/Referrals: Alex Rizvi Jr, [Primary Care Provider] - 05/14/21 11:00 am Diet: Regular and Low Sodium (2gm) Addtl Attending Provider Instructions: - you were in the hospital with an excess of fluid in your lungs -- you were medicated with a "fluid pill" called Lasix through your IV which helped remove the fluid - you are prescribed Lasix 20mg daily at home, please make sure you are taki ng this medication EVER DAY, do not skip doses - you will need to purchase a scale and check your weight every day at home - if you notice an increase in your weight by 3 pounds over a 24 hour period, take TWO Lasix tablets (for total of 40mg) and call your doctor - keep salt intake to a minimum (avoid added salt & processed meats) or drinking more than 2L of liquid per day - you also were found to have pneumonia -- you were started on antibiotics for this, will continue Cefdinir at home, next dose due on 05/08/21, finish as directed - your oxygen level was low when you came in, this is likely due to both the pneumonia and the excess fluid in your lungs - the chest pain you were experiencing was likely due to acid reflux, you did not have a heart attack - a medicine called Protonix has been prescribed to help control symptoms of acid reflux, it has been sent to your pharmacy on file - we will set up visiting nurses and PT/OT to see you in your home - recommend that you return home, complete antibiotics as prescribed, and follow up with your family doctor within 1 week of discharge - call your family doctor if you have any medication questions or questions about symptoms - call 911 in event of a medical emergency Pending Studies at Discharge: No Stand-Alone Forms: My [facility] [employer], Smoking Cessation Medications and DC Order Prescriptions: New pantoprazole 40 mg Tablet,Delayed Release (Dr/Ec) 40 mg PO QAM Qty: 30 RF: 0 cefdinir 300 mg capsule 300 mg PO BID Qty: 8 RF: 0 Continued furosemide [Lasix] 20 mg tablet 20 mg PO DAILY PRN (Reason: edema) Qty: 90 RF: 3 amiodarone 200 mg tablet 200 mg PO QDD Qty: 90 RF: 3 amlodipine 10 mg tablet 10 mg PO QDD Qty: 90 RF: 3 aspirin 325 mg tablet 325 mg PO QAM Qty: 100 RF: 0 metoprolol tartrate [Lopressor] 50 mg tablet 50 mg PO QDD Qty: 30 RF: 0 calcium carbonate [Calcium 600] 600 mg calcium (1,500 mg) tablet 600 mg PO QAM RF: 0 levothyroxine 75 mcg capsule 75 mcg PO QAM RF: 0 ondansetron 4 mg tablet,disintegrating 4 mg PO Q6H PRN (Reason: nausea and vomiting) Qty: 10 RF: 0 Discharge Orders: Discharge Order (Routine); Ordered 05/07/21 Ordered By: Amanda Simpson/Other Patient Handouts: When You Have Pneumonia Admission Data Admit Date/Time: 05/06/21 10:47 Attending Provider: Claudio Caban Admit Provider: Ramona Narayan Primary Care Provider: Alex Rizvi Jr Other Providers: Gloria Lockwood ; [facility],Referral Center ; [facility],Home Healthcare Other Interventions: Discharge Summary Assessment (RN) Last Done: 05/07/21 12:41 Supervising Physician Co-Signing Physician Notes Patient seen and examined on the day of discharge. I agree with the discharge summary by Amanda SÁNCHEZ. I have reviewed the chart including labs, imaging and plans for discharge. patient doing much better after diuresis and antibiotics, breathing easier and ready to go home - Acute on chronic heart failure: responded well to diuresis - Bacterial pneumonia: treated with Rocephin and Zithromax, change to Cefdinir on discharge CT chest with infiltrates COVID negative Coding Level of Care Code D/C DAY MANAGEMENT >30 MINS Diagnoses Burning chest pain R07.89 (HFpEF) heart failure with preserved ejection fraction I50.30 Leukocytosis D72.829 Bilateral pneumonia J18.9 Hypoxia R09.02 Atrial fibrillation I48.91 Hypothyroidism E03.9 Hypertension I10 Home Health Attestation I certify that this patient is under my care and that I, or a physicians assistant restaurant general manager working with me, had a face to-face encounter that meets the home health [id number] encounter requirements with this patient. The encounter with the patient was in whole, or in part, for the following medical condition, which is the primary reason for home health care (list medical condition): I certify that, based on my findings, the following services are medically necessary home health services: My clinical findings support the need for the above services because: Further, I certify that my clinical findings support that this patient is homebound (i.e. absences from home require considerable and taxing effort and are for medical reasons or religion services or infrequently or of short duration when for other reasons) because: Certification for Home Health Services: Based on the above findings, I certify that this patient is confined to the home and needs intermittent alf care, physical therapy and/or speech therapy or continues to need occupational therapy. The patient is under my care, and I have initiated the establishment of the plan of care. This patient will be followed by a physician who will periodically review the plan of care.
[2021-05-07] MEDS ORDERED: cefTRIAXone SODIUM 1,000 MG in DEXTROSE 5% 50 ML IV SCH (12:00)
== END 2021-05-07 13:49 | disposition home health service (06) | DRG 193 ==
LOC: EDINP 02:49 → ED 02:49 → SUATTDRO 04:35 → EDINP 06:30 → 3N 05-06 20:53

== ENCOUNTER 2021-05-27 10:02 | Observation (INO) ==
--- NOTE | 2021-05-27 10:25 | Emergency Department Note ---
Impression & Plan Chest pain, Breath shortness, Anemia ED Provider Note NAME: JEN GALLOWAY AGE: 81 SEX: F : 1940 ARRIVES VIA: Ambulance INFORMANT: Patient ED PROVIDER(S): Jacobo Berger DO CHIEF COMPLAINT: Shortness of breath and chest tightness HPI: Patient is an 81-year-old female with a past medical history of hypertension, hypothyroidism, A. fib not anticoagulated secondary to recurrent falls, heart failure with preserved EF who presents to the ER for shortness of breath which started last night and worsened into this morning. She also admits to chest tightness which was present for about 3 hours and resolved upon presentation to the ER It was midsternal without any radiation. Shortness of breath to get worse around this time. It has completely resolved. She denies any belly pain, nausea, vomiting, or diarrhea. No dysuria, urgency, or frequency. She notes increased swelling in her right leg which is new. She believes the swelling in her left leg may be slightly worse. No other exacerbating or remitting symptoms. Her chest pain has completely resolved and is 0 out of 10 currently. Shortness of breath is still present. He was brought in by EMS. ROS: See above HPI for pertinent positives & negatives. A total of [10] systems reviewed and were otherwise negative. PAST MEDICAL HISTORY:See Below PAST SURGICAL HISTORY:See Below FAMILY HISTORY:See Below SOCIAL HISTORY:See Below HOME MEDICATIONS:See Below ALLERGIES:See Below VITALS:See Below PHYSICAL EXAMINATION: GENERAL: Sitting up in bed, alert, well appearing, well nourished, no distress, non-toxic EYE EXAM: normal conjunctiva. OROPHARYNX: no exudate, no erythema, lips, buccal mucosa, and tongue normal and mucous membranes are moist NECK: supple, no nuchal rigidity, no adenopathy, non-tender LUNGS: Crackles at bilateral bases. Normal chest wall mechanics HEART: no murmurs, S1 normal and S2 normal ABDOMEN: abdomen soft, non-tender, normo-active bowel sounds, no masses, no rebound or guarding. UPPER EXTREMITIES: upper extremities are grossly normal. LOWER EXTREMITIES: Pitting edema in the bilateral lower extremities left greater than right NEURO EXAM: Normal sensorium, cranial nerves II-XII grossly intact, normal speech, no gross weakness of arms, no gross weakness of legs. MEDICAL DECISION MAKING: Patient is an 81-year-old female with a past medical history of hypertension, hypothyroidism, A. fib not anticoagulated secondary to recurrent falls, heart failure with preserved EF who presents to the ER for shortness of breath which started last night and worsened into this morning. Recent echo shows LVEF 60- 65%, mod to severe MR, mild MS, mild AR, RSVP elevated at 40-50mmHg. Heart score moderate risk. Admission at the end of April when she was treated for possible pneumonia although normal Pro-Jacob. IV was established photos obtained and showed mild leukocytosis 11.3. Mild anemia 10. BMP with LFTs bilirubin and lipase was unremarkable. Troponin was negative. COVID was negative. Chest x- ray showed worsening alveolar opacities. EKG question infectious versus CHF. Patient does have pitting edema. She is discussed with hospitalist admitted for further work-up. She did take aspirin prior to arrival. Triage Nursing notes reviewed. Limited review of prior medical records performed Vital Signs: reviewed and remarkable for no significant abnormalities Differential diagnosis: Differential diagnoses includes but is not limited to acute coronary syndrome, myocardial infarction, pericarditis, pulmonary embolus, aortic dissection, pneumonia, pneumothorax, musculoskeletal, shingles, esophageal. ER treatment provided: See below Diagnostics interpreted by me: ECG: Sinus rhythm rate of 67 First-degree AV block Normal axis No PVCs QTC 505 Prehospital EKG Sinus rhythm rate of 73 ST depressions in V5 V6 Mild ST elevations in lead I and aVF Depressions present in the inferior leads Left bundle QTC 472 Cardiac Monitoring: An order was placed for continuous cardiac monitoring. The monitor shows a rate of 62 with sinus rhythm. Laboratory studies: As stated above and show below. Imaging studies: Portable AP upright 1 view of the chest as discussed above Consultation(s): Discussed with the hospitalist for further evaluation Procedures: none Critical Care: None Past Med/Surg History Medical History Afib Diverticulitis Hypertension Surgical History Hx of cholecystectomy Hx of hysterectomy Family History Other Family history non-contributory Social History Smoking Status: Never smoker Second Hand Exposure: No; Hx Alcohol Use: No Hx Substance Use: No Preferred Language: Turkish Communication Ability: Effective Soil Fertility Extension Specialist Required: No Beliefs That Will Affect Care: None marital status: Current Living Situation: Alone Current Living Situation Comment: has an aide that comes over current occupational status: retired Feels Safe at Home: Yes Assistive Devices: Walker Allergies Allergies Allergy/AdvReac Type Severity Reaction Status Date / Time metronidazole Allergy Intermediate GI SYMPTOMS Verified 05/05/21 08:23 Bactrim AdvReac Mild GI SYMPTOMS Unverified 12/21/17 08:00 Quinolones AdvReac Mild HIVES Verified 05/05/21 08:23 sulfamethoxazole AdvReac Mild GI SYMPTOMS Verified 05/05/21 08:23 trimethoprim AdvReac Mild GI SYMPTOMS Verified 05/05/21 08:23 Home Meds Home Medications Medication Instructions Recorded Confirmed aspirin 325 mg tablet 325 mg PO QAM #100 tab 01/28/19 05/27/21 calcium carbonate 600 mg calcium 600 mg PO QAM tab 01/28/19 05/27/21 (1,500 mg) tablet (Calcium) metoprolol tartrate 50 mg tablet 75 mg PO QDD #30 tab 01/28/19 05/27/21 (Lopressor) levothyroxine 75 mcg capsule 75 mcg PO QAM 03/14/19 05/27/21 diclofenac sodium 1 % topical gel 2 g TOPICAL QID 05/27/21 05/27/21 furosemide 20 mg tablet (Lasix) 20 mg PO QAM 05/27/21 05/27/21 Previous Rx's Medication Instructions Recorded amlodipine 10 mg tablet 10 mg PO QDD #90 tab 03/21/20 amiodarone 200 mg tablet 200 mg PO QDD #90 tab 12/30/20 pantoprazole 40 mg tablet,delayed 40 mg PO QAM #30 tab 05/07/21 release amoxicillin 500 mg capsule 500 mg PO BID 10 Days #14 cap 05/20/21 Results & Data (ED) Vital Signs Vital Signs - 24 hr 05/27/21 10:14 05/27/21 10:21 05/27/21 10:25 Temperature 36.4 C L Temperature Source Oral Pulse Rate 107 H 65 Pulse Rate from SpO2 Sensor 65 Pulse Rhythm Regular Pulse Strength Normal Respiratory Rate 22 22 Respiratory Effort / Characteristics Non-Labored Spontaneous Respiratory Depth Normal Respiratory Pattern Regular Blood Pressure 139/75 Blood Pressure Mean 96 Blood Pressure Position Sitting Pulse Oximetry 94 95 96 Oxygen Delivery Method Room Air Room Air Sepsis Recent Fever Within 48 Hours No Sepsis New/Unexplained Change in Mental Status No Sepsis Action Taken by Nursing No Action Required 05/27/21 10:30 05/27/21 10:40 05/27/21 10:50 Temperature Temperature Source Pulse Rate 64 64 63 Pulse Rate from SpO2 Sensor 64 65 67 Pulse Rhythm Pulse Strength Respiratory Rate 19 22 18 Respiratory Effort / Characteristics Respiratory Depth Respiratory Pattern Blood Pressure Blood Pressure Mean Blood Pressure Position Pulse Oximetry 94 95 92 Oxygen Delivery Method Sepsis Recent Fever Within 48 Hours Sepsis New/Unexplained Change in Mental Status Sepsis Action Taken by Nursing 05/27/21 11:00 05/27/21 11:03 05/27/21 11:10 Temperature Temperature Source Pulse Rate 64 75 Pulse Rate from SpO2 Sensor 68 68 Pulse Rhythm Pulse Strength Respiratory Rate 20 24 24 Respiratory Effort / Characteristics Respiratory Depth Respiratory Pattern Blood Pressure Blood Pressure Mean Blood Pressure Position Pulse Oximetry 95 91 95 Oxygen Delivery Method Room Air Sepsis Recent Fever Within 48 Hours Sepsis New/Unexplained Change in Mental Status Sepsis Action Taken by Nursing 05/27/21 11:20 05/27/21 11:30 05/27/21 11:40 Temperature Temperature Source Pulse Rate 64 64 64 Pulse Rate from SpO2 Sensor 64 65 64 Pulse Rhythm Pulse Strength Respiratory Rate 24 21 19 Respiratory Effort / Characteristics Respiratory Depth Respiratory Pattern Blood Pressure 131/55 L Blood Pressure Mean 80 Blood Pressure Position Pulse Oximetry 95 94 94 Oxygen Delivery Method Sepsis Recent Fever Within 48 Hours Sepsis New/Unexplained Change in Mental Status Sepsis Action Taken by Nursing 05/27/21 11:42 05/27/21 11:50 05/27/21 12:00 Temperature Temperature Source Pulse Rate 62 64 67 Pulse Rate from SpO2 Sensor 62 64 69 Pulse Rhythm Pulse Strength Respiratory Rate 18 18 21 Respiratory Effort / Characteristics Respiratory Depth Respiratory Pattern Blood Pressure 131/55 L 123/58 L Blood Pressure Mean 80 79 Blood Pressure Position Pulse Oximetry 95 95 93 Oxygen Delivery Method Sepsis Recent Fever Within 48 Hours Sepsis New/Unexplained Change in Mental Status Sepsis Action Taken by Nursing 05/27/21 12:10 05/27/21 12:26 Temperature Temperature Source Pulse Rate 65 76 Pulse Rate from SpO2 Sensor 68 Pulse Rhythm Pulse Strength Respiratory Rate 20 28 H Respiratory Effort / Characteristics Respiratory Depth Respiratory Pattern Blood Pressure Blood Pressure Mean Blood Pressure Position Pulse Oximetry 94 Oxygen Delivery Method Sepsis Recent Fever Within 48 Hours Sepsis New/Unexplained Change in Mental Status Sepsis Action Taken by Nursing Laboratory Data Result diagrams: 05/27/21 10:10 05/27/21 10:10 Lab Results 05/27/21 05/27/21 05/27/21 Range/Units 10:10 10:10 10:22 WBC 11.34 H (4.8-10.8) K/uL RBC 3.38 L (4.2-5.4) M/uL Hgb 10.5 L (12.0-16.0) g/dL Hct 32.9 L (37-47) % MCV 97.3 (80-100) fL MCH 31.1 (25-34) pg MCHC 31.9 L (32-36) g/dL RDW Std Deviation 51.2 H (36.4-46.3) fL RDW Coeff of Ursula 14.4 (11.5-14.5) % Plt Count 309 (130-400) K/uL MPV 10.8 H (7.4-10.4) fL Immature Gran % (Auto) 0.3 % Neut % (Auto) 69.0 % Lymph % (Auto) 14.6 % [place] % (Auto) 13.8 % Eos % (Auto) 1.3 % Baso % (Auto) 1.0 % Neut # (Auto) 7.83 H (1.4-6.5) K/uL Lymph # (Auto) 1.65 (1.2-3.4) K/uL [place] # (Auto) 1.57 H (0.11-0.59) K/uL Eos # (Auto) 0.15 (0-0.5) K/uL Baso # (Auto) 0.11 (0-0.2) K/uL Immature Gran # (Auto) 0.03 H (0.00-0.02) K/uL Sodium 136 (136-145) mmol/L Potassium 3.8 (3.5-5.1) mmol/L Chloride 105 (98-107) mmol/L Carbon Dioxide 21 (21-32) mmol/L Anion Gap 10 (3-11) BUN 16 (6-23) mg/dl Creatinine 1.31 H (0.6-1.2) mg/dl Est Cr Clr Drug Dosing 30.8 ml/min Est GFR ( Amer) 43.5 ml/min Est GFR (Non-Af Amer) 37.6 ml/min BUN/Creatinine Ratio 12.2 (10-20) Glucose 123 H (70-99(Fasting)) mg/dl Calcium 9.0 (8.5-10.1) mg/dl Total Bilirubin 0.6 (0.2-1.0) mg/dl AST 20 (13-39) U/L ALT 10 (7-52) U/L Alkaline Phosphatase 55 (34-104) U/L Troponin I < 0.03 (0-0.04) ng/ml B-Natriuretic Peptide 467 H (0-100) pg/ml Total Protein 7.0 (6.0-8.3) gm/dl Albumin 3.8 (3.4-5.0) gm/dl Globulin 3.2 (2.5-4.0) gm/dl Albumin/Globulin Ratio 1.2 (0.9-2) Lipase 38 (11-82) U/L SARS-CoV-2, RNA, NAAT (NEGATIVE) 05/27/21 Range/Units 10:31 WBC (4.8-10.8) K/uL RBC (4.2-5.4) M/uL Hgb (12.0-16.0) g/dL Hct (37-47) % MCV (80-100) fL MCH (25-34) pg MCHC (32-36) g/dL RDW Std Deviation (36.4-46.3) fL RDW Coeff of Ursula (11.5-14.5) % Plt Count (130-400) K/uL MPV (7.4-10.4) fL Immature Gran % (Auto) % Neut % (Auto) % Lymph % (Auto) % [place] % (Auto) % Eos % (Auto) % Baso % (Auto) % Neut # (Auto) (1.4-6.5) K/uL Lymph # (Auto) (1.2-3.4) K/uL [place] # (Auto) (0.11-0.59) K/uL Eos # (Auto) (0-0.5) K/uL Baso # (Auto) (0-0.2) K/uL Immature Gran # (Auto) (0.00-0.02) K/uL Sodium (136-145) mmol/L Potassium (3.5-5.1) mmol/L Chloride (98-107) mmol/L Carbon Dioxide (21-32) mmol/L Anion Gap (3-11) BUN (6-23) mg/dl Creatinine (0.6-1.2) mg/dl Est Cr Clr Drug Dosing ml/min Est GFR ( Amer) ml/min Est GFR (Non-Af Amer) ml/min BUN/Creatinine Ratio (10-20) Glucose (70-99(Fasting)) mg/dl Calcium (8.5-10.1) mg/dl Total Bilirubin (0.2-1.0) mg/dl AST (13-39) U/L ALT (7-52) U/L Alkaline Phosphatase (34-104) U/L Troponin I (0-0.04) ng/ml B-Natriuretic Peptide (0-100) pg/ml Total Protein (6.0-8.3) gm/dl Albumin (3.4-5.0) gm/dl Globulin (2.5-4.0) gm/dl Albumin/Globulin Ratio (0.9-2) Lipase (11-82) U/L SARS-CoV-2, RNA, NAAT NEGATIVE (NEGATIVE) Administered Medications Discontinued Medications Aspirin (Aspirin Chew 324 Mg) 324 mg PO NOW STA Stop: 05/27/21 11:24 Last Admin: 05/27/21 11:40 Dose: Not Given Documented by: [id number] Imaging Data Radiologist's Impression: Chest X-Ray 05/27/21 10:14 XR chest 1V portable CLINICAL HISTORY: Chest Pain. Follow-up airspace opacities COMPARISON STUDY: 05/19/2021 TECHNIQUE: 1 view of the chest FINDINGS: Single frontal view of the chest demonstrates the cardiomediastinal silhouette to be within normal limits. Compared to previous examination, there is slight worsening of interstitial and alveolar opacities bilaterally. There is left basilar atelectasis. There is blunting of the costophrenic angles characteristic of small bilateral pleural effusions. There is no evidence for vascular congestion. There is no acute osseous pathology. IMPRESSION: Slight interval worsening of interstitial and alveolar opacities bilaterally. There is also left basilar atelectasis and small bilateral pleural effusions. ACT 112: Negative or not required by law. Electronically signed by: Jose Anderson M.D. 05/27/2021 10:52 AM Discharge Plan Visit Data Chief Complaint: Shortness of Breath/Dyspnea ED Provider: Jacobo Berger Discharge Problem: Chest pain, Breath shortness, Anemia Discharge Problem: Chest pain Qualifiers: Chest pain type: unspecified Qualified Code(s): R07.9 - Chest pain, unspecified Anemia Qualifiers: Anemia type: unspecified type Qualified Code(s): D64.9 - Anemia, unspecified
[2021-05-27 10:44] LABS: Basophils # (auto) 0.11 K/uL (0-0.2); Eosinophils # (auto) 0.15 K/uL (0-0.5); Eosinophils % (auto) 1.3 %; Hematocrit (blood only) 32.9 % (37-47); Hemoglobin 10.5 g/dL (12.0-16.0); Immature Granulocytes # (auto) 0.03 K/uL (0.00-0.02); Immature Granulocytes % (auto) 0.3 %; Lymphocytes # (auto) 1.65 K/uL (1.2-3.4); Lymphocytes % (auto) 14.6 %; Mean Corpuscular Hemoglobin 31.1 pg (25-34); Mean Corpuscular Hgb Conc 31.9 g/dL (32-36); Mean Corpuscular Volume 97.3 fL (80-100); Mean Platelet Volume 10.8 fL (7.4-10.4); Monocytes # (auto) 1.57 K/uL (0.11-0.59); Monocytes % (auto) 13.8 %; Neutrophils # (auto) 7.83 K/uL (1.4-6.5); Platelet Count 309 K/uL (130-400); RDW Coefficient of Variation 14.4 % (11.5-14.5); RDW Standard Deviation 51.2 fL (36.4-46.3); Red Blood Count 3.38 M/uL (4.2-5.4); White Blood Count 11.34 K/uL (4.8-10.8)
--- NOTE | 2021-05-27 10:53 | XRay Report ---
XR chest 1V portable CLINICAL HISTORY: Chest Pain. Follow-up airspace opacities COMPARISON STUDY: 05/19/2021 TECHNIQUE: 1 view of the chest FINDINGS: Single frontal view of the chest demonstrates the cardiomediastinal silhouette to be within normal li mits. Compared to previous examination, there is slight worsening of interstitial and alveolar opacit ies bilaterally. There is left basilar atelectasis. There is blunting of the costophrenic angles brie acteristic of small bilateral pleural effusions. There is no evidence for vascular congestion. There is no acute osseous pathology. IMPRESSION: Slight interval worsening of interstitial and alveolar opacities bilaterally. There is al so left basilar atelectasis and small bilateral pleural effusions. ACT 112: Negative or not required by law. Electronically signed by: Jose Anderson M.D. 05/27/2021 10:52 AM
[2021-05-27] MEDS ORDERED: ASPIRIN CHEW 324 MG PO STA (11:23)
[2021-05-27 11:28] LABS: Alanine Aminotransferase 10 U/L (7-52); Albumin Globulin Ratio 1.2 (0.9-2); Albumin Level 3.8 gm/dl (3.4-5.0); Alkaline Phosphatase 55 U/L (34-104); Anion Gap 10 (3-11); Aspartate Aminotransferase 20 U/L (13-39); BUN Creatinine Ratio 12.2 (10-20); Bilirubin,Total 0.6 mg/dl (0.2-1.0); Blood Urea Nitrogen 16 mg/dl (6-23); Carbon Dioxide 21 mmol/L (21-32); Chloride 105 mmol/L (98-107); Creatinine Clr Calc Pharmacy 30.8 ml/min; Est GFR (African American) 43.5 ml/min; Est GFR (Non-African American) 37.6 ml/min; Globulin 3.2 gm/dl (2.5-4.0); Glucose 123 mg/dl (70-99(Fasting)); Lipase 38 U/L (11-82); Potassium 3.8 mmol/L (3.5-5.1); Sodium 136 mmol/L (136-145)
[2021-05-27 11:30] LABS: Troponin I < 0.03 ng/ml (0-0.04)
--- NOTE | 2021-05-27 12:28 | History & Physical Report ---
Date of Service May 27, 2021 Assessment & Plan (1) (HFpEF) heart failure with preserved ejection fraction: Plan: Suspect patient has mild fluid overload, has known history of chronic diastolic CHF 2D echo from 04/29 noted, patient has mild AV sclerosis, mild aortic regurg, moderate to severe mitral regurg, mild mitral stenosis. EF 60-65%. No need to repeat at this time Takes Lasix 20 mg p.o. daily at home, will increase to 20 mg IV every 12 hours while here. Monitor ins and outs along with daily weights Trend troponins Currently on amlodipine, consider discontinuing as this can worsen fluid retention, lower extremity edema Patient has had multiple hospitalizations, for this reason we will ask cardiology to see here for further recommendations (2) Atrial fibrillation: Plan: History of paroxysmal atrial fibrillation. Currently in normal sinus rhythm On full dose aspirin, not on oral blood thinners secondary to previous fall risk Continue outpatient amiodarone 200 mg daily Continue metoprolol as ordered (3) Hypertension: Plan: Blood pressure controlled metoprolol and amlodipine History of Present Illness Chief Complaint: SOB Primary Care Provider: Alex Rizvi Jr, DO This is an 81-year-old female with past medical history of paroxysmal atrial fibrillation, diastolic CHF that presents today with shortness of breath. Patient is a decent historian. Patient tells me she was feeling fine yesterday and went to bed at her usual time. She slept several hours but woke up through the night with some shortness of breath. She typically sleeps in a recliner because a flat bed will hurt her back. She emphatically denies any chest pain through the night. When she woke up, her home health provider came to the house where she expressed that she was having the shortness of breath advised her to come to the emergency room. Patient denied most symptoms including abdominal pain, fever chills, cough, or chest pain as noted above. She did note some increased edema in her right lower extremity when questioned, tells me that the left lower extremity is typically always swollen. In the emergency room, she was not hypoxic with an O2 sat of 94% on room air. Other vitals were stable. There is concern for for mild fluid overload and the patient is being placed in observation for this reason. Allergies Allergy/AdvReac Type Severity Reaction Status Date / Time metronidazole Allergy Intermediate GI SYMPTOMS Verified 05/05/21 08:23 Bactrim AdvReac Mild GI SYMPTOMS Unverified 12/21/17 08:00 Quinolones AdvReac Mild HIVES Verified 05/05/21 08:23 sulfamethoxazole AdvReac Mild GI SYMPTOMS Verified 05/05/21 08:23 trimethoprim AdvReac Mild GI SYMPTOMS Verified 05/05/21 08:23 Home Medications Medication Instructions Recorded Confirmed Type aspirin 325 mg tablet 325 mg PO QAM #100 tab 01/28/19 05/27/21 History calcium carbonate 600 mg calcium 600 mg PO QAM tab 01/28/19 05/27/21 History (1,500 mg) tablet (Calcium) metoprolol tartrate 50 mg tablet 75 mg PO QDD #30 tab 01/28/19 05/27/21 History (Lopressor) levothyroxine 75 mcg capsule 75 mcg PO QAM 03/14/19 05/27/21 History amlodipine 10 mg tablet 10 mg PO QDD #90 tab 03/21/20 05/27/21 Rx amiodarone 200 mg tablet 200 mg PO QDD #90 tab 12/30/20 05/27/21 Rx pantoprazole 40 mg tablet,delayed 40 mg PO QAM #30 tab 05/07/21 05/27/21 Rx release amoxicillin 500 mg capsule 500 mg PO BID 10 Days #14 cap 05/20/21 05/27/21 Rx diclofenac sodium 1 % topical gel 2 g TOPICAL QID 05/27/21 05/27/21 History furosemide 20 mg tablet (Lasix) 20 mg PO QAM 05/27/21 05/27/21 History Past Med/Surg History Medical History Afib Diverticulitis Hypertension Surgical History Hx of cholecystectomy Hx of hysterectomy Family History Other Family history non-contributory Social History Smoking Status: Never smoker Second Hand Exposure: No; Hx Alcohol Use: No Hx Substance Use: No Preferred Language: Peruvian Communication Ability: Effective Pot Puller Required: No Beliefs That Will Affect Care: None marital status: Current Living Situation: Alone Current Living Situation Comment: has an aide that comes over current occupational status: retired Feels Safe at Home: Yes Assistive Devices: Walker Review of Systems Constitutional: no fever, no chills, no weakness, no weight loss and no weight gain Eyes: as per Subjective / HPI Respiratory: no cough, no chest congestion, no dyspnea and no dyspnea on exertion Cardiovascular: + dyspnea at rest, + orthopnea (possible?) and + edema; no chest pain, no chest pain with activity, no palpitations and no lightheadedness Gastrointestinal: no abdominal pain, no nausea, no vomiting, no constipation and no diarrhea/loose stools Genitourinary: no dysuria, no difficulty urinating, no urinary frequency, no urinary hesitancy, no urinary urgency and no flank pain Musculoskeletal: no back pain, no neck pain, no joint pain, no stiffness and no myalgia Integumentary: no rash Neurologic: no gait abnormality, no unsteadiness, no falls and no generalized weakness Physical Exam Constitutional: cooperative; no acute distress Neck: trachea midline, no thyromegaly Respiratory: normal respiratory effort Auscultation: + rales (pronounced b/l bases); no crackles, no rhonchi and no wheezes Cardiovascular: Rate/Rhythm: regular rate and regular rhythm Heart Sounds: normal S1 and normal S2 Gastrointestinal (Abdomen): Inspection/Auscultation: abdomen normal to inspection Percussion/Palpation: abdomen soft; abdomen nontender, no guarding, abdomen not rigid and no hepatosplenomegaly Musculoskeletal: 2-3+ LE pitting edema b/l, some chronic venous changes. nontender Skin: no rashes, warm and dry Results & Data Results & Data ([facility]) Vital Signs (Past 12 Hours) Vital Signs Temp Pulse Resp BP Pulse Ox 05/27/21 11:40 64 19 131/55 L 94 05/27/21 11:30 64 21 94 05/27/21 11:20 64 24 95 05/27/21 11:10 24 95 05/27/21 11:03 75 24 91 05/27/21 11:00 64 20 95 05/27/21 10:50 63 18 92 05/27/21 10:40 64 22 95 05/27/21 10:30 64 19 94 05/27/21 10:25 96 05/27/21 10:21 65 22 95 05/27/21 10:14 36.4 C L 107 H 22 139/75 94 Laboratory Results Laboratory Results WBC 11.34 K/uL (4.8-10.8) H 05/27/21 10:10 RBC 3.38 M/uL (4.2-5.4) L 05/27/21 10:10 Hgb 10.5 g/dL (12.0-16.0) L 05/27/21 10:10 Hct 32.9 % (37-47) L 05/27/21 10:10 MCV 97.3 fL (80-100) 05/27/21 10:10 MCH 31.1 pg (25-34) 05/27/21 10:10 MCHC 31.9 g/dL (32-36) L 05/27/21 10:10 RDW Std Deviation 51.2 fL (36.4-46.3) H 05/27/21 10:10 RDW Coeff of Ursula 14.4 % (11.5-14.5) 05/27/21 10:10 Plt Count 309 K/uL (130-400) 05/27/21 10:10 MPV 10.8 fL (7.4-10.4) H 05/27/21 10:10 Immature Gran % (Auto) 0.3 % 05/27/21 10:10 Neut % (Auto) 69.0 % 05/27/21 10:10 Lymph % (Auto) 14.6 % 05/27/21 10:10 [place] % (Auto) 13.8 % 05/27/21 10:10 Eos % (Auto) 1.3 % 05/27/21 10:10 Baso % (Auto) 1.0 % 05/27/21 10:10 Neut # (Auto) 7.83 K/uL (1.4-6.5) H 05/27/21 10:10 Lymph # (Auto) 1.65 K/uL (1.2-3.4) 05/27/21 10:10 [place] # (Auto) 1.57 K/uL (0.11-0.59) H 05/27/21 10:10 Eos # (Auto) 0.15 K/uL (0-0.5) 05/27/21 10:10 Baso # (Auto) 0.11 K/uL (0-0.2) 05/27/21 10:10 Immature Gran # (Auto) 0.03 K/uL (0.00-0.02) H 05/27/21 10:10 Sodium 136 mmol/L (136-145) 05/27/21 10:10 Potassium 3.8 mmol/L (3.5-5.1) 05/27/21 10:10 Chloride 105 mmol/L (98-107) 05/27/21 10:10 Carbon Dioxide 21 mmol/L (21-32) 05/27/21 10:10 Anion Gap 10 (3-11) 05/27/21 10:10 BUN 16 mg/dl (6-23) 05/27/21 10:10 Creatinine 1.31 mg/dl (0.6-1.2) H 05/27/21 10:10 Est Cr Clr Drug Dosing 30.8 ml/min 05/27/21 10:10 Est GFR ( Amer) 43.5 ml/min 05/27/21 10:10 Est GFR (Non-Af Amer) 37.6 ml/min 05/27/21 10:10 BUN/Creatinine Ratio 12.2 (10-20) 05/27/21 10:10 Glucose 123 mg/dl (70-99(Fasting)) H 05/27/21 10:10 Calcium 9.0 mg/dl (8.5-10.1) 05/27/21 10:10 Total Bilirubin 0.6 mg/dl (0.2-1.0) 05/27/21 10:10 AST 20 U/L (13-39) 05/27/21 10:10 ALT 10 U/L (7-52) 05/27/21 10:10 Alkaline Phosphatase 55 U/L (34-104) 05/27/21 10:10 Troponin I < 0.03 ng/ml (0-0.04) 05/27/21 10:10 B-Natriuretic Peptide 467 pg/ml (0-100) H 05/27/21 10:22 Total Protein 7.0 gm/dl (6.0-8.3) 05/27/21 10:10 Albumin 3.8 gm/dl (3.4-5.0) 05/27/21 10:10 Globulin 3.2 gm/dl (2.5-4.0) 05/27/21 10:10 Albumin/Globulin Ratio 1.2 (0.9-2) 05/27/21 10:10 Lipase 38 U/L (11-82) 05/27/21 10:10 SARS-CoV-2, RNA, NAAT NEGATIVE (NEGATIVE) 05/27/21 10:31 Impressions Chest X-Ray 05/27/21 10:14 XR chest 1V portable CLINICAL HISTORY: Chest Pain. Follow-up airspace opacities COMPARISON STUDY: 05/19/2021 TECHNIQUE: 1 view of the chest FINDINGS: Single frontal view of the chest demonstrates the cardiomediastinal silhouette to be within normal limits. Compared to previous examination, there is slight worsening of interstitial and alveolar opacities bilaterally. There is left basilar atelectasis. There is blunting of the costophrenic angles characteristic of small bilateral pleural effusions. There is no evidence for vascular congestion. There is no acute osseous pathology. IMPRESSION: Slight interval worsening of interstitial and alveolar opacities bilaterally. There is also left basilar atelectasis and small bilateral pleural effusions. ACT 112: Negative or not required by law. Electronically signed by: Jose Anderson M.D. 05/27/2021 10:52 AM PG Care Time/CCT Total # of Minutes Spent Total Time Spent with Patient: Total time spent is greater than 50% in coordination of care (as documented) at patient's floor/unit and/or counseling patient: Coding Level of Care Code INT OBSERVATION CARE 70M LVL 3 Diagnoses Atrial fibrillation I48.91 Hypertension I10 (HFpEF) heart failure with preserved ejection fraction I50.30
[2021-05-27] MEDS ORDERED: ONDANSETRON INJ 2 MG/ML 2 ML VIAL IV PRN (16:07)
[2021-05-27] MEDS ORDERED: ACETAMINOPHEN 325 MG TAB PO PRN (16:07)
[2021-05-27] MEDS ORDERED: METOPROLOL TARTRATE 25 MG TAB PO SCH (16:30)
[2021-05-27] MEDS ORDERED: ENOXAPARIN INJ 40 MG/0.4 ML SYR SQ SCH (16:30)
[2021-05-27] MEDS ORDERED: amLODIPine BESYLATE 5 MG TAB PO SCH (16:30)
[2021-05-27] MEDS ORDERED: AMIODARONE 200 MG TAB PO SCH (16:30)
[2021-05-27] MEDS: FUROSEMIDE INJ 20 MG/2 ML VIAL IV SCH (17:59)
[2021-05-27] MEDS ORDERED: MICONAZOLE NITRATE POWDER 43 GM EXT PRN (18:40)
[2021-05-27] MEDS ORDERED: DICLOFENAC SOD 1% GEL 100 GM TUBE EXT PRN (20:36)
--- NOTE | 2021-05-27 21:25 | Electrocardiogram Report ---
Test Reason : Blood Pressure : / mmHG Vent. Rate : 067 BPM Atrial Rate : 067 BPM P-R Int : 282 ms QRS Dur : 136 ms QT Int : 478 ms P-R-T Axes : 080 062 008 degrees QTc Int : 505 ms Poor data quality, interpretation may be adversely affected Sinus rhythm with 1st degree A-V block Left bundle branch block Abnormal ECG When compared with ECG of 19-MAY-2021 16:42, Sinus rhythm has replaced Atrial fibrillation Confirmed by Jay Khan ([id number]) on 05/27/2021 9:25:24 PM Referred By: Confirmed By:Jay Khan
[2021-05-28] MEDS: FUROSEMIDE INJ 20 MG/2 ML VIAL IV SCH (06:06)
[2021-05-28] MEDS ORDERED: LEVOTHYROXINE SODIUM 75 MCG TABLET PO SCH (06:30)
[2021-05-28 07:19] LABS: Basophils # (auto) 0.06 K/uL (0-0.2); Basophils % (auto) 0.6 %; Eosinophils # (auto) 0.27 K/uL (0-0.5); Eosinophils % (auto) 2.9 %; Immature Granulocytes # (auto) 0.04 K/uL (0.00-0.02); Immature Granulocytes % (auto) 0.4 %; Lymphocytes % (auto) 22.3 %; Mean Corpuscular Hemoglobin 31.5 pg (25-34); Mean Corpuscular Hgb Conc 32.3 g/dL (32-36); Mean Corpuscular Volume 97.8 fL (80-100); Monocytes # (auto) 1.09 K/uL (0.11-0.59); Monocytes % (auto) 11.6 %; Neutrophils # (auto) 5.85 K/uL (1.4-6.5); Neutrophils % (auto) 62.2 %; Platelet Count 264 K/uL (130-400); RDW Coefficient of Variation 14.4 % (11.5-14.5); RDW Standard Deviation 51.8 fL (36.4-46.3); Red Blood Count 3.17 M/uL (4.2-5.4); White Blood Count 9.41 K/uL (4.8-10.8)
[2021-05-28 07:39] LABS: Troponin I < 0.03 ng/ml (0-0.04)
[2021-05-28 08:07] LABS: Anion Gap 7 (3-11); Blood Urea Nitrogen 19 mg/dl (6-23); Calcium 9.1 mg/dl (8.5-10.1); Carbon Dioxide 25 mmol/L (21-32); Chloride 102 mmol/L (98-107); Chol HDL Ratio 3.5; Cholesterol 181 mg/dl (0-200); Creatinine Clr Calc Pharmacy 25.2 ml/min; Est GFR (African American) 38.2 ml/min; Est GFR (Non-African American) 32.9 ml/min; Glucose 88 mg/dl (70-99(Fasting)); HDL Cholesterol 52 mg/dl; LDL Cholesterol Calculated 108 mg/dl; Potassium 3.9 mmol/L (3.5-5.1); Sodium 134 mmol/L (136-145); Triglycerides 103 mg/dl (0-150); VLDL Cholesterol 21 mg/dl
--- NOTE | 2021-05-28 08:16 | Hospitalist Progress Note ---
Date of Service May 28, 2021 Assessment & Plan (1) (HFpEF) heart failure with preserved ejection fraction: Plan: Yun Carlson is an 81-year-old female with a past medical history of A. fib on amiodarone heart failure with preserved ejection fraction, intermittent hypertension who presented with shortness of breath and he was admitted for suspected acute on chronic diastolic CHF. Shortness of breath, ?Acute on chronic heart failure with preserved ejection fraction - CXR:. Compared to previous examination, there is slight worsening of interstitial and alveolar opacities bilaterally. There is left basilar atelectasis. There is blunting of the costophrenic angles characteristic of small bilateral pleural effusions. There is no evidence for vascular congestion. There is no acute osseous pathology. IMPRESSION: Slight interval worsening of interstitial and alveolar opacities bilaterally. There is also left basilar atelectasis and small bilateral pleural effusions. Echo 04/2021: EF 60-65%, mild aortic regurg, moderate to severe mitral regurg, mild AV sclerosis Home Lasix 20 mg p.o. daily increased to 20 mg IV twice daily on admit, decreased to dialy as below Troponin negative on admit ? CT without contrast recurrent shortness of breath, on amiodarone, chest x- ray without vascular congestion although bilateral pleural effusions. Weight today 63.3 kg, baseline weight appears around 63-64 kg on chart review. BNP with very mild elevation. Pending clinical reevaluation. Patient on amlodipine for hypertension? Impact on lower extremity edema Cardiology consulted on admission due to multiple hospitalizations - Trace leukocytosis on admission, x-ray as below, leukocytosis improved. Afebrile. Procalcitonin pending. - Creatinine baseline appears 1.31.5. Creatinine 1.31 on admission, 1.46 today. -Cholesterol 103, LDL 108, HDL fifty-two, triglycerides 181 BNP 467 on admission (2) Atrial fibrillation: Plan: Paroxysmal A. fib In normal sinus rhythm on admission On full dose aspirin Patient not on anticoagulation due to previous fall/fall risk Continue outpatient amiodarone 200 mg daily Continue metoprolol (3) Hypertension: Plan: Continue metoprolol Continue amlodipine Plan: DVT prophylaxis: Lovenox daily Diet: Heart healthy Disposition: Telemetry CODE STATUS: Full code Admission and Anticipated Discharge Date Admission Date: May 27, 2021 Results & Data Results & Data ([facility]) Vital Signs (Past 12 Hours) Vital Signs Temp Pulse Pulse Resp BP BP Pulse Ox 05/28/21 07:44 95 05/28/21 07:43 37.0 C 64 16 128/73 87 L 05/28/21 07:40 55 L 05/28/21 04:10 36.8 C 61 16 122/58 L 94 05/28/21 00:00 36.8 C 56 L 60 18 125/64 94 PG Care Time/CCT Total # of Minutes Spent Total Time Spent with Patient: Total time spent is greater than 50% in coordination of care (as documented) at patient's floor/unit and/or counseling patient: Coding Diagnoses (HFpEF) heart failure with preserved ejection fraction I50.30 Atrial fibrillation I48.91 Hypertension I10
[2021-05-28] MEDS ORDERED: PANTOprazole 40 MG TAB PO SCH (09:00)
[2021-05-28] MEDS ORDERED: ASPIRIN 325 MG ECTAB PO SCH (09:00)
[2021-05-28] MEDS ORDERED: FUROSEMIDE INJ 20 MG/2 ML VIAL IV SCH (09:00)
[2021-05-28] MEDS ORDERED: CALCIUM CARBONATE 1250MG TAB PO SCH (09:00)
--- NOTE | 2021-05-28 12:11 | Discharge Summary ---
Date of Service May 28, 2021 Admission HPI Per Admitting Provider This is an 81-year-old female with past medical history of paroxysmal atrial fibrillation, diastolic CHF that presents today with shortness of breath. Patient is a decent historian. Patient tells me she was feeling fine yesterday and went to bed at her usual time. She slept several hours but woke up through the night with some shortness of breath. She typically sleeps in a recliner because a flat bed will hurt her back. She emphatically denies any chest pain through the night. 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 Patient denied most symptoms including abdominal pain, fever chills, cough, or chest pain as noted above. She did note some increased edema in her right lower extremity when questioned, tells me that the left lower extremity is typically always swollen. In the emergency room, she was not hypoxic with an O2 sat of 94% on room air. Other vitals were stable. There is concern for for mild fluid overload and the patient is being placed in observation for this reason. Admission Exam Per Admitting Provider Constitutional: cooperative; no acute distress Neck: trachea midline, no thyromegaly Respiratory: normal respiratory effort Auscultation: + rales (pronounced b/l bases); no crackles, no rhonchi and no wheezes Cardiovascular: Rate/Rhythm: regular rate and regular rhythm Heart Sounds: normal S1 and normal S2 Gastrointestinal (Abdomen): Inspection/Auscultation: abdomen normal to inspection Percussion/Palpation: abdomen soft; abdomen nontender, no guarding, abdomen not rigid and no hepatosplenomegaly Musculoskeletal: 2-3+ LE pitting edema b/l, some chronic venous changes. nontender Skin: no rashes, warm and dry Principal Diagnosis Ao CHFpEF Discharge Exam General: A&Ox3. NAD. Cooperative. HEENT: Atraumatic, normocephalic. Visual acuity grossly intact. Hearing grossly intact although hard of hearing. Pulm: Trace bibasilar crackles, otherwise good air movement and CTAB A&P. - wheezes, -rales, -rhonchi. Symmetrical chest rise. No increase in work of breathing. No respiratory distress. Cardiac: RRR, -mrg. Radial pulses intact and symmetrical. Abdominal: Nontender, nondistended, soft. BS present. Extremities: Warm, dry. Sensation to soft touch intact in hands and feet. 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 Discharge Data Allergies Allergy/AdvReac Type Severity Reaction Status Date / Time metronidazole Allergy Intermediate GI SYMPTOMS Verified 05/05/21 08:23 Bactrim AdvReac Mild GI SYMPTOMS Unverified 12/21/17 08:00 Quinolones AdvReac Mild HIVES Verified 05/05/21 08:23 sulfamethoxazole AdvReac Mild GI SYMPTOMS Verified 05/05/21 08:23 trimethoprim AdvReac Mild GI SYMPTOMS Verified 05/05/21 08:23 Consultations 05/27/21 11:49 ED Decision to Admit Stat 05/27/21 16:07 Consult Cardiology Routine Hospital Course (1) (HFpEF) heart failure with preserved ejection fraction: Yun Carlson is an 81-year-old female with a past medical history of A. fib on amiodarone heart failure with preserved ejection fraction, intermittent hypertension who presented with shortness of breath and he was admitted for suspected acute on chronic diastolic CHF. Summary: Yun was admitted and was found to have rales on clinical exam, mildly increased BNP, and suggestion of slight increased fluid on her chest x-ray. She rapidly clinically improved with IV Lasix twice daily and felt 98% back to normal the next day. She was discharged to resume home Lasix with additional second dose of oral Lasix in the evening as needed for weight gain/edema with follow-up to her PCP. Of note her shortness of breath was somewhat disproportionate with the degree of edema appreciated on lab work and chest x- ray. May just be very fluid sensitive, of note she was rate controlled and in sinus but may have had preceding tachycardia/anxiety contributing to symptoms. No evidence of fibrosis on CXR. To do as outpatient: 1. Routine follow-up to PCP within 1 week 2. Repeat BMP to follow creatinine and sodium 3. Follow-up for addition of Lasix at bedtime as needed for weight gain/edema 4. Continued home health services Shortness of breath, ?Acute on chronic heart failure with preserved ejection fraction - CXR:. Compared to previous examination, there is slight worsening of interstitial and alveolar opacities bilaterally. There is left basilar atelectasis. There is blunting of the costophrenic angles characteristic of smal l bilateral pleural effusions. There is no evidence for vascular congestion. There is no acute osseous pathology. IMPRESSION: Slight interval worsening of interstitial and alveolar opacities bilaterally. There is also left basilar atelectasis and small bilateral pleural effusions. Echo 04/2021: EF 60-65%, mild aortic regurg, moderate to severe mitral regurg, mild AV sclerosis Home Lasix 20 mg p.o. daily increased to 20 mg IV twice daily on admit, decreased to dialy as below Troponin negative on admit Patient on amlodipine for hypertension? Impact on lower extremity edema - Trace leukocytosis on admission, x-ray as below, leukocytosis resolved without antibiotic treatment Afebrile. Procalcitonin negative. - Creatinine baseline appears 1.31.5. Creatinine remained within baseline -Cholesterol 103, LDL 108, HDL fifty-two, triglycerides 181 BNP 467 on admission (2) Atrial fibrillation: Paroxysmal A. fib In normal sinus rhythm on admission On full dose aspirin Patient not on anticoagulation due to previous fall/fall risk Continue outpatient amiodarone 200 mg daily Continue metoprolol (3) Hypertension: Continue metoprolol Continue amlodipine DVT prophylaxis: Lovenox daily Diet: Heart healthy Disposition: Telemetry CODE STATUS: Full code Total Time Total Time Spent Total Time Spent (In Minutes): Total time spent day of discharge including direct patient care, coordination of care, documentation, review of labs and images 40 minutes. Discharge Plan Discharge Items Patient Disposition: Home - Home Health Services Reason For Visit: CHF Discharge Diagnosis: Acute on chronic CHF Activity: Resume your previous activity Non-emergency contact: Primary Care Provider and Office Electrician Call non-emergency contact if: you have any medication questions, your symptoms worsen and you have a fever Follow-up/Referrals: Alex Rizvi Jr, DO [Primary Care Provider] - Diet: Heart Healthy Addtl Attending Provider Instructions: You are seen in the hospital for shortness of breath. You are found to have some evidence of fluid overload (mild acute on chronic congestive heart failure) on your blood work and x-ray. You were treated with IV Lasix twice a day and rapidly improved. You felt 98% back to your baseline at time of admission. You are seen by physical therapy, and your strength was good and you are ambulating independently at discharge. It was recommended that you return home, home health services to check in [facility] were being arranged by case management. New medications have not been prescribed at this time. Please resume taking Lasix 20 mg in the morning daily. You may check your weight daily. If you gain more than 3 pounds in 24-48 hours, or have additional leg swelling, you may take an additional Lasix tablet in the evening. Please discuss this with your primary care physician at follow-up. Amiodarone can contribute to some shortness of breath and rare cases, and amlodipine can contribute to some leg swelling. While these medications were not suspected to be contributing to your presentation at time of hospitalization, please continue to follow-up with your outpatient providers regarding these medications. Please continue to take these as normal at this time. Your heart rate was well controlled and your heart was in a normal rhythm during admission. A followup appointment is being scheduled for you with Dr. Rizvi. You should be seen seen within 1 week. You should receive a call to confirm this appointment. If you do not receive a call within 48 hours to confirm this appointment, or need to change this appointment, please call the provider's office. Please have a BMP (blood work) drawn by your primary care provider at this visit to check your creatinine levels. If you develop any new or worsening symptoms including fever, chills, sweats, chest pain, chest pressure, difficulty breathing, uncontrolled nausea/vomiting, rash, wheezing, passing out or nearly passing out, bleeding, black/bloody bowel movements, or other new or concerning symptoms please call your primary care physician, or call 911 for re-evaluation in the emergency department if you are very concerned. Pending Studies at Discharge: No Stand-Alone Forms: My [facility] Pickup Services, Smoking Cessation Medications and DC Order Prescriptions: New furosemide 20 mg tablet 20 mg PO HS PRN (Reason: Weight Gain/Edema) Qty: 14 RF: 0 Continued amiodarone 200 mg tablet 200 mg PO QDD Qty: 90 RF: 3 amlodipine 10 mg tablet 10 mg PO QDD Qty: 90 RF: 3 aspirin 325 mg tablet 325 mg PO QAM Qty: 100 RF: 0 metoprolol tartrate [Lopressor] 50 mg tablet 75 mg PO QDD Qty: 30 RF: 0 calcium carbonate [Calcium 600] 600 mg calcium (1,500 mg) tablet 600 mg PO QAM RF: 0 levothyroxine 75 mcg capsule 75 mcg PO QAM RF: 0 diclofenac sodium 1 % gel 2 g TOPICAL QID RF: 0 furosemide [Lasix] 20 mg tablet 20 mg PO QAM RF: 0 pantoprazole 40 mg Tablet,Delayed Release (Dr/Ec) 40 mg PO QAM Qty: 30 RF: 0 Discontinued amoxicillin 500 mg capsule 500 mg PO BID 10 Days Qty: 14 RF: 0 Discharge Orders: Discharge Order (Routine); Ordered 05/28/21 Ordered By: Gil Flores Admission Data Admit Date/Time: 05/27/21 12:29 Attending Provider: Gil Flores Admit Provider: Frantz Mckee Primary Care Provider: Alex Rizvi Jr Other Providers: Frantz Mckee ; Min Canela ; [facility] Coding Level of Care Code D/C DAY MANAGEMENT >30 MINS Diagnoses (HFpEF) heart failure with preserved ejection fraction I50.30 Atrial fibrillation I48.91 Hypertension I10
[2021-05-28] MEDS ORDERED: ENOXAPARIN INJ 30 MG/0.3 ML SYR SQ SCH (17:00)
--- NOTE | 2021-05-28 22:45 | Cardiology Consultation ---
Date of Consultation May 28, 2021 Assessment & Plan (1) (HFpEF) heart failure with preserved ejection fraction: 2. Paroxysmal atrial fibrillation/on chronic amiodarone, off anticoagulation due to prior fall/GI bleeding 3. Acute on chronic renal insufficiency 4. Hypertension 5. Dyslipidemia 6. Left bundle branch block, prolonged QTC Patient admitted with increased dyspnea and evidence of mild pulmonary congestion on chest x-ray. No clear precipitants. Never hypoxic. After 3 do ses of IV diuretic feeling back at baseline and on exam today minimal residual congestion. This is patient's second admission within the last month for mild heart failure symptoms. Has also had 1 ED visit for palpitations in the setting of her chronic paroxysmal atrial fibrillation. Feel patient is safe from a cardiac standpoint for discharge today. She will need closer cardiac follow-up on discharge. Recommendations: Home on increased p.o. Lasix 40 mg daily Follow-up BMP in 2 to 3 days Continue home metoprolol, amiodarone Mild residual edema may be related to amlodipine. Possible transition to ARB as an outpatient pending stable renal function Continue aspirin. Again patient reiterated not interested in anticoagulation We will arrange for CHF clinic follow-up Plan discussed with Dr. Flores History of Present Illness Attending Physician: Gil Flores MD History of Present Illness Mrs. Carlson is a pleasant 81year-old woman with a history paroxysmal atrial fibrillation, hypertension, chronic diastolic heart failure admitted with mild volume overload. Patient presented yesterday after was awoken with increased shortness of breath. Reports mild increase in dyspnea the night prior. She reported some accompanying chest pain to the/admitting team. Denies any current or recent chest pain today. Denies any palpitations over the last several days. Does report mild increased lower extremity edema. Denies any change to diet, fevers/chills or change in home diuretic, 20 mg daily. Reports that she has been weighing herself at home and that weights have been stable. Patient was previously admitted 05/05/2021 with questionable heart failure/pneumonia. Treated with twice daily IV Lasix 20 mg with appropriate net negative diuresis. Repeat echocardiogram at that time showed normal LV function, moderate to severe eccentric MR, Mild MS, mild AI. Had a repeat ED visit on 05/19/2021 in the setting of palpitations. ECG at that time noted rate controlled atrial fibrillation. Currently today reports breathing back to baseline. Has received 3 doses of IV Lasix 20 mg and is negative approximately 1 L. Telemetry shows sinus rhythm in the 60s. Without ST changes. Troponins negative x3. Patient continues to live at home. She has home health comes 4 days a week. Travels by [facility]. Prior cardiac history: Patient was previously followed by Dr. Martines for her cardiovascular care. She has had a diagnosis of paroxysmal atrial fibrillation since at least 2004 initially diagnosed in the setting of hyperthyroidism. She has had multiple episodes of AFib with RVR and has been managed with AV april agents and amiodarone since 2011. For anticoagulation she was previously on Pradaxa which was complicated by reported melena was on Coumadin until July 2017 but discontinued due to fall risk. Reportedly had 18 falls over the span of 2 years. Not interested in resuming anticoagulation due to falls and prior GI bleeding Allergies Allergy/AdvReac Type Severity Reaction Status Date / Time metronidazole Allergy Intermediate GI SYMPTOMS Verified 05/05/21 08:23 Bactrim AdvReac Mild GI SYMPTOMS Unverified 12/21/17 08:00 Quinolones AdvReac Mild HIVES Verified 05/05/21 08:23 sulfamethoxazole AdvReac Mild GI SYMPTOMS Verified 05/05/21 08:23 trimethoprim AdvReac Mild GI SYMPTOMS Verified 05/05/21 08:23 Home Medications Medication Instructions Recorded Confirmed Type aspirin 325 mg tablet 325 mg PO QAM #100 tab 01/28/19 05/27/21 History calcium carbonate 600 mg calcium 600 mg PO QAM tab 01/28/19 05/27/21 History (1,500 mg) tablet (Calcium) metoprolol tartrate 50 mg tablet 75 mg PO QDD #30 tab 01/28/19 05/27/21 History (Lopressor) levothyroxine 75 mcg capsule 75 mcg PO QAM 03/14/19 05/27/21 History amlodipine 10 mg tablet 10 mg PO QDD #90 tab 03/21/20 05/27/21 Rx amiodarone 200 mg tablet 200 mg PO QDD #90 tab 12/30/20 05/27/21 Rx pantoprazole 40 mg tablet,delayed 40 mg PO QAM #30 tab 05/07/21 05/27/21 Rx release diclofenac sodium 1 % topical gel 2 g TOPICAL QID 05/27/21 05/27/21 History furosemide 20 mg tablet (Lasix) 40 mg PO QAM #60 tab 05/28/21 Rx Patient History Medical History Afib Diverticulitis Hypertension Surgical History Hx of cholecystectomy Hx of hysterectomy Family History Other Family history non-contributory Social History Smoking Status: Never smoker Second Hand Exposure: No; Hx Alcohol Use: No Hx Substance Use: No Preferred Language: Kazakh Communication Ability: Effective 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 Beliefs That Will Affect Care: None marital status: Current Living Situation: Alone Current Living Situation Comment: Has an aide who comes over current occupational status: retired How many Children do You have: 3 Feels Safe at Home: Yes Assistive Devices: Walker Review of Systems Review of Systems: All systems reviewed & are unremarkable except as noted in HPI & below Physical Exam Physical Exam: General: Comfortable, no acute distress, mild tremor in hands bilaterally HEENT: Sclerae anicteric Lungs: Scant crackles at bases bilaterally Cardiac: Regular rate and rhythm, diastolic aortic murmur, 2 out of 6 holosystolic murmur at the apex Abdomen: Soft, nontender, nondistended Extremities: Warm, well perfused, trace edema bilaterally above the ankle. 2+ radial pulses Skin: Chronic venous stasis changes in legs bilaterally, right greater than left Neuro: Hard of hearing Psych: Alert orient x3, normal affect and mood Results & Data ([facility]) Vital Signs (Past 12 Hours) Vital Signs Temp Pulse Resp BP BP Pulse Ox Pulse Ox 05/28/21 14:01 90 05/28/21 12:20 98.1 F 60 16 122/58 L 117/66 94 05/28/21 11:23 98.1 F 60 16 117/66 94 PG Care Time/CCT Total # of Minutes Spent Total Time Spent with Patient: Total time spent is greater than 50% in coordination of care (as documented) at patient's floor/unit and/or counseling patient: Coding Level of Care Code 91445 Initial Inpt Care Lvl 3 Diagnoses (HFpEF) heart failure with preserved ejection fraction I50.30
== END 2021-05-28 15:08 | disposition home health service (06) ==
LOC: 2S 10:02 → ED 10:02 → SUATTDRO 12:29 → 2S 15:57

== ENCOUNTER 2021-10-30 05:33 | Observation (INO) ==
[2021-10-30] MEDS ORDERED: ALUMINUM/MAGNESIUM SUSP 30 ML UDC PO STA (05:45)
[2021-10-30] MEDS ORDERED: ASPIRIN CHEW 324 MG PO STA (05:45)
--- NOTE | 2021-10-30 05:58 | Emergency Department Note ---
History of Present Illness General Chief complaint: Cardiac Assessment Time Seen by Provider: 10/30/21 05:34 History of Present Illness Maximum Pain Intensity: 6 81 yo female presents to the emergency department with a complaint of chest burning and indigestion that started at 10 PM last evening. Patient took Pepto- Bismol prior to arrival. Patient was given 324 mg of aspirin by EMS prior to arrival. Patient denies cough cold congestion symptoms. Patient denies pleuritic chest pain. Patient denies radiation of this chest burning. There are no other mitigating or alleviating factors. Home Medications Medication Instructions Recorded Confirmed Type aspirin 325 mg tablet 325 mg PO QAM #100 tab 01/28/19 05/27/21 History calcium carbonate 600 mg calcium 600 mg PO QAM tab 01/28/19 05/27/21 History (1,500 mg) tablet (Calcium) metoprolol tartrate 50 mg tablet 75 mg PO QDD #30 tab 01/28/19 05/27/21 History (Lopressor) levothyroxine 75 mcg capsule 75 mcg PO QAM 03/14/19 05/27/21 History amlodipine 10 mg tablet 10 mg PO QDD #90 tab 03/21/20 05/27/21 Rx amiodarone 200 mg tablet 200 mg PO QDD #90 tab 12/30/20 05/27/21 Rx pantoprazole 40 mg tablet,delayed 40 mg PO QAM #30 tab 05/07/21 05/27/21 Rx release diclofenac sodium 1 % topical gel 2 g TOPICAL QID 05/27/21 05/27/21 History furosemide 40 mg tablet 40 mg PO QAM #90 tab 07/09/21 Rx Allergies Allergy/AdvReac Type Severity Reaction Status Date / Time metronidazole Allergy Intermediate GI SYMPTOMS Verified 05/05/21 08:23 Bactrim AdvReac Mild GI SYMPTOMS Unverified 12/21/17 08:00 Quinolones AdvReac Mild HIVES Verified 05/05/21 08:23 sulfamethoxazole AdvReac Mild GI SYMPTOMS Verified 05/05/21 08:23 trimethoprim AdvReac Mild GI SYMPTOMS Verified 05/05/21 08:23 Past Med/Surg History Medical History Afib Diverticulitis Hypertension Surgical History Hx of cholecystectomy Hx of hysterectomy Family History Other Family history non-contributory Social History Smoking Status: Unknown if ever smoked Second Hand Exposure: No; Hx Alcohol Use: No Hx Substance Use: No Preferred Language: Kinyarwanda Communication Ability: Effective 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 Beliefs That Will Affect Care: None marital status: Current Living Situation: Alone Current Living Situation Comment: Has an aide who comes over current occupational status: retired How many Children do You have: 3 Feels Safe at Home: Yes Assistive Devices: Walker Review of Systems A total of 10 systems reviewed and were otherwise negative Constitutional: no fever Respiratory: no cough Cardiovascular: + chest pain Physical Exam Vital Signs Vital Signs - 24 hr 10/30/21 05:39 10/30/21 05:48 10/30/21 07:08 Temperature 37 C Temperature Source Oral Pulse Rate 67 Pulse Rate [Finger] 66 Respiratory Rate 18 24 Respiratory Effort / Characteristics Non-Labored Respiratory Depth Normal Blood Pressure 142/83 H Blood Pressure [Left Arm] 140/52 L Blood Pressure Mean 102 Blood Pressure Mean [Left Arm] 81 Pulse Oximetry 93 95 95 Oxygen Delivery Method Room Air Room Air Room Air Sepsis Recent Fever Within 48 Hours No Sepsis New/Unexplained Change in Mental Status No Sepsis Action Taken by Nursing No Action Required VITAL SIGNS - Vital signs and nursing notes were reviewed. GENERAL - No acute distress. Communicates well with provider and answers questions appropriately. SKIN - Without rashes. HEAD - NC/AT. EYES - PERRL with EOMI bilaterally. Sclera anicteric. Palpebral conjunctiva pink and moist with no injection noted. EARS - No deformities of external structures noted on gross examination bilaterally. . NOSE - Midline and without cyanosis. No epistaxis or purulent drainage noted. Septum midline without deviation or septal hematoma noted. MOUTH/OROPHARYNX - Without perioral cyanosis. NECK - Neck with FROM. LUNGS - Chest wall symmetric without accessory muscle use, intercostals retractions, or central cyanosis. Normal vesicular breath sounds CTA B/L. No wheezes, rales, or rhonchi appreciated. CARDIAC - RRR with S1/S2. No murmur, rubs, or gallops appreciated. ABDOMEN - Abdominal contour soft without pulsations or visible masses. BS normoactive all four quadrants. No tenderness, palpable masses, hepatosplenomegaly, or ascites noted. EXTREMITIES - No clubbing or peripheral cyanosis. B/l le edema. +5/5 strength noted in UE/LE bilaterally. NEUROLOGIC - Cranial nerves II through XII grossly intact. PSYCH - A&Ox3 and cooperates fully with examiner. Pt is very pleasant and interacts well with examiner. Course Reevaluation(s) Reevaluation #1: Patient is resting in no distress she has taken aspirin prior to arrival, she started Rocephin and Zithromax. Time: 06:57 Administered Medications Discontinued Medications Al Hydrox/Mg Hydrox/Simethicone (Aluminum/Magnesium Susp 30 Ml Udc) 30 ml PO NOW STA Stop: 10/30/21 05:46 Last Admin: 10/30/21 06:11 Dose: 30 ml Documented by: [id number] Aspirin (Aspirin Chew 324 Mg) 324 mg PO NOW STA Stop: 10/30/21 05:46 Last Admin: 10/30/21 06:03 Dose: Not Given Documented by: [id number] Medical Decision Making Medical Records Attestation: I reviewed the patient's medical records. Home Medications Current Medication List: was personally reviewed by me Laboratory Data Attestation: I reviewed the patient's lab results. Result diagrams: 10/30/21 05:50 10/30/21 05:50 Lab Results 10/30/21 10/30/21 10/30/21 Range/Units 05:50 05:50 06:22 WBC 11.37 H (4.8-10.8) K/uL RBC 3.60 L (4.2-5.4) M/uL Hgb 11.6 L (12.0-16.0) g/dL Hct 34.2 L (37-47) % MCV 95.0 (80-100) fL MCH 32.2 (25-34) pg MCHC 33.9 (32-36) g/dL RDW Std Deviation 48.7 H (36.4-46.3) fL RDW Coeff of Ursula 13.9 (11.5-14.5) % Plt Count 260 (130-400) K/uL MPV 11.5 H (7.4-10.4) fL Immature Gran % (Auto) 0.4 % Neut % (Auto) 66.8 % Lymph % (Auto) 17.2 % [place] % (Auto) 12.8 % Eos % (Auto) 2.3 % Baso % (Auto) 0.5 % Neut # (Auto) 7.61 H (1.4-6.5) K/uL Lymph # (Auto) 1.95 (1.2-3.4) K/uL [place] # (Auto) 1.45 H (0.11-0.59) K/uL Eos # (Auto) 0.26 (0-0.5) K/uL Baso # (Auto) 0.06 (0-0.2) K/uL Immature Gran # (Auto) 0.04 H (0.00-0.02) K/uL Sodium 134 L (136-145) mmol/L Potassium 3.8 (3.5-5.1) mmol/L Chloride 101 (98-107) mmol/L Carbon Dioxide 24 (21-32) mmol/L Anion Gap 9 (3-11) BUN 20 (6-23) mg/dl Creatinine 1.45 H (0.6-1.2) mg/dl Est Cr Clr Drug Dosing 27.4 ml/min Est GFR ( Amer) 38.5 ml/min Est GFR (Non-Af Amer) 33.2 ml/min BUN/Creatinine Ratio 13.8 (10-20) Glucose 129 H (70-99(Fasting)) mg/dl Calcium 9.6 (8.5-10.1) mg/dl Total Bilirubin 0.9 (0.2-1.0) mg/dl AST 18 (13-39) U/L ALT 11 (7-52) U/L Alkaline Phosphatase 65 (34-104) U/L Troponin I High Sens 7.3 (0-14) pg/ml Total Protein 7.3 (6.0-8.3) gm/dl Albumin 4.2 (3.4-5.0) gm/dl Globulin 3.1 (2.5-4.0) gm/dl Albumin/Globulin Ratio 1.4 (0.9-2) SARS-CoV-2, RNA, NAAT NEGATIVE (NEGATIVE) Imaging Data Attestation: I personally reviewed and interpreted this imaging study as follows: My Impression: Chest x-ray interpreted by me mild cardiomegaly and increased pulmonary markings bilaterally Radiologist's Impression: Chest X-Ray 10/30/21 05:35 XR chest 1V portable CLINICAL HISTORY: Atypical chest pain. COMPARISON STUDY: Chest CT May 05, 2021. Chest radiograph May 27, 2021. FINDINGS: There is no pneumothorax. Small bilateral pleural effusions are noted. Cardiomegaly is unchanged. Bibasilar opacities are again noted. These were shown on prior exam. Diffuse interstitial thickening has slightly decreased when compared to prior exam. IMPRESSION: 1. Bibasilar opacities which favor pneumonia. Pulmonary edema or atelectasis are considered less likely. Radiographic follow up to ensure resolution is recommended. 2. Small bilateral pleural effusions. 3. Stable cardiomegaly. ACT 112: Negative or not required by law. Electronically signed by: Davis Thompson M.D. 10/30/2021 6:36 AM ECG Data Attestation: I personally reviewed and interpreted this ECG as follows: Additional Comments: EKG interpreted by me sinus rhythm first-degree AV block rate of 67 left bundle branch block no obvious ST segment elevation or depression MDM Narrative Medical decision making differential diagnosis angina, unstable angina, acute coronary syndrome, pneumonia, GERD; Impression & Plan Chest pain, Pneumonia Discharge Plan Visit Data Chief Complaint: Cardiac Assessment ED Provider: Real Vigil Discharge Problem: Chest pain, Pneumonia Patient Disposition: Being Evaluated by Hospitalist Forms Stand Alone Forms: My [facility] Prescriptions Prescriptions: No Action amiodarone 200 mg tablet 200 mg PO QDD Qty: 90 RF: 3 furosemide 40 mg tablet 40 mg PO QAM Qty: 90 RF: 3 amlodipine 10 mg tablet 10 mg PO QDD Qty: 90 RF: 3 aspirin 325 mg tablet 325 mg PO QAM Qty: 100 RF: 0 metoprolol tartrate [Lopressor] 50 mg tablet 75 mg PO QDD Qty: 30 RF: 0 calcium carbonate [Calcium 600] 600 mg calcium (1,500 mg) tablet 600 mg PO QAM RF: 0 levothyroxine 75 mcg capsule 75 mcg PO QAM RF: 0 diclofenac sodium 1 % gel 2 g TOPICAL QID RF: 0 pantoprazole 40 mg Tablet,Delayed Release (Dr/Ec) 40 mg PO QAM Qty: 30 RF: 0 Referrals Referrals: Alex Rizvi Jr, DO [Physician] - Discharge Problem: Chest pain Qualifiers: Chest pain type: unspecified Qualified Code(s): R07.9 - Chest pain, unspecified Pneumonia Qualifiers: Pneumonia type: due to unspecified organism Laterality: bilateral Lung location: lower lobe of lung Qualified Code(s): J18.9 - Pneumonia, unspecified organism
[2021-10-30 06:13] LABS: Basophils # (auto) 0.06 K/uL (0-0.2); Basophils % (auto) 0.5 %; Eosinophils # (auto) 0.26 K/uL (0-0.5); Eosinophils % (auto) 2.3 %; Hematocrit (blood only) 34.2 % (37-47); Hemoglobin 11.6 g/dL (12.0-16.0); Immature Granulocytes # (auto) 0.04 K/uL (0.00-0.02); Immature Granulocytes % (auto) 0.4 %; Lymphocytes # (auto) 1.95 K/uL (1.2-3.4); Lymphocytes % (auto) 17.2 %; Mean Corpuscular Hemoglobin 32.2 pg (25-34); Mean Corpuscular Hgb Conc 33.9 g/dL (32-36); Mean Platelet Volume 11.5 fL (7.4-10.4); Monocytes # (auto) 1.45 K/uL (0.11-0.59); Monocytes % (auto) 12.8 %; Neutrophils # (auto) 7.61 K/uL (1.4-6.5); Neutrophils % (auto) 66.8 %; Platelet Count 260 K/uL (130-400); RDW Coefficient of Variation 13.9 % (11.5-14.5); RDW Standard Deviation 48.7 fL (36.4-46.3); White Blood Count 11.37 K/uL (4.8-10.8)
[2021-10-30 06:29] LABS: Albumin Globulin Ratio 1.4 (0.9-2); Albumin Level 4.2 gm/dl (3.4-5.0); BUN Creatinine Ratio 13.8 (10-20); Bilirubin,Total 0.9 mg/dl (0.2-1.0); Calcium 9.6 mg/dl (8.5-10.1); Creatinine Clr Calc Pharmacy 27.4 ml/min; Est GFR (African American) 38.5 ml/min; Est GFR (Non-African American) 33.2 ml/min; Globulin 3.1 gm/dl (2.5-4.0); Potassium 3.8 mmol/L (3.5-5.1); Total Protein 7.3 gm/dl (6.0-8.3)
[2021-10-30 06:31] LABS: Troponin I High Sensitivity 7.3 pg/ml (0-14)
--- NOTE | 2021-10-30 06:38 | XRay Report ---
XR chest 1V portable CLINICAL HISTORY: Atypical chest pain. COMPARISON STUDY: Chest CT May 05, 2021. Chest radiograph May 27, 2021. FINDINGS: There is no pneumothorax. Small bilateral pleural effusions are noted. Cardiomegaly is unch anged. Bibasilar opacities are again noted. These were shown on prior exam. Diffuse interstitial thic kening has slightly decreased when compared to prior exam. IMPRESSION: 1. Bibasilar opacities which favor pneumonia. Pulmonary edema or atelectasis are considered less like ly. Radiographic follow up to ensure resolution is recommended. 2. Small bilateral pleural effusions. 3. Stable cardiomegaly. ACT 112: Negative or not required by law. Electronically signed by: Davis Thompson M.D. 10/30/2021 6:36 AM
[2021-10-30] MEDS ORDERED: cefTRIAXone SODIUM 2,000 MG/70 ML BAG IV STA (06:44)
[2021-10-30] MEDS ORDERED: AZITHROMYCIN 500 MG in DEXTROSE 5% 250 ML IV STA (06:44)
--- NOTE | 2021-10-30 08:41 | History & Physical Report ---
Date of Service October 30, 2021 Assessment & Plan (1) Pneumonia: Plan: - Admit to med surg with tele - Sputum culture, mucinex, duisisbs QID and Q2H prn, kurtis mukherjee -Patient is not requiring supplemental O2 presently - COVID negative - WBC at time of admission = 11.37, checking Pro-Jacob, afebrile - BCx x 2, follow - CXR reviewed as above - concern that she might be also slightly volume overloaded, giving 1 dose of IV Lasix 40 mg now - Continue antibiotic therapy with ceftriaxone IV and doxycycline p.o. (2) Chest pain: Plan: - Pt had similar presentation last fall - concern for possible diastolic CHF exacerbation underlying pna as above - Trend cardiac biomarkers, initial set was negative, second set in process - Check bnp and mag - EKG reviewed as above - Check 2 D echo - Consult cardiology - follows with [facility] and the heart failure clinic - Dry weight of 140 lbs. - PT/OT consulted - Giving lasix as above - HH diet with 200mL fluid restriction for now (3) (HFpEF) heart failure with preserved ejection fraction: (4) Hypertension: Plan: - Cont metoprolol tartrate 75 mg daily, lasix 40 mg daily, amlodipine 10 mg daily (5) Atrial fibrillation: Plan: - Continue asa 324 daily, not on formal anticoagulation due to hx of falls when on coumadin - Follows with Dr. Canela and is supposed to see him in January - Cont rate control with amiodarone 200 mg daily (6) GERD (gastroesophageal reflux disease): Plan: - Continue pantoprazole and will add famotidine (7) Hypothyroidism: Plan: - TSH 7.02, continue levothyroxine 75 mcg daily DVT ppx: - teds, scds, heparin subcu CODE: Full code Dispo: From home, likely to remain in the hospital x 1-2 days History of Present Illness Chief Complaint: Burning in the chest Primary Care Provider: Kodi Lizarraga MD This is an 81-year-old female with PMHx of A. fib, HTN, CHF with preserved EF, hypothyroidism, GERD, anemia, who presents to the ER with acute onset of chest pain which began last night around 10:30 PM. She reports that this burning in her throat and chest was not relieved with a Tums tablet. This morning when she talked to her nurse through [facility], which she follows with. They instructed her to call ambulance and come to the hospital. She denies any discomfort presently. She states she has not had shortness of breath cough, fever, chills, chest palpitations, flutter, pressure, heaviness and does not even necessarily consider the burning a chest pain. She lives at home independently, and uses a walker at baseline. She denies any recent falls but reports that there was a period a few years ago where she was on Coumadin and fell almost 20 times within a 2-year span and was taken off the blood thinner. She reports having a touch of pneumonia and possible CHF exacerbation last fall. Otherwise she has not had symptoms like this. Patient reports eating and drinking without difficulty, no risk for aspiration, bowels are moving regularly and no issues with urination. She does not wear O2 at baseline. She did not take any of her routinely scheduled morning medications as she was here in the ER. Allergies Allergy/AdvReac Type Severity Reaction Status Date / Time metronidazole Allergy Intermediate GI SYMPTOMS Verified 05/05/21 08:23 Bactrim AdvReac Mild GI SYMPTOMS Unverified 12/21/17 08:00 Quinolones AdvReac Mild HIVES Verified 05/05/21 08:23 sulfamethoxazole AdvReac Mild GI SYMPTOMS Verified 05/05/21 08:23 trimethoprim AdvReac Mild GI SYMPTOMS Verified 05/05/21 08:23 Home Medications Medication Instructions Recorded Confirmed Type aspirin 325 mg tablet 325 mg PO QAM #100 tab 01/28/19 10/30/21 History calcium carbonate 600 mg calcium 600 mg PO QAM tab 01/28/19 10/30/21 History (1,500 mg) tablet (Calcium) metoprolol tartrate 50 mg tablet 75 mg PO QDD #30 tab 01/28/19 10/30/21 History (Lopressor) levothyroxine 75 mcg capsule 75 mcg PO QAM 03/14/19 10/30/21 History amlodipine 10 mg tablet 10 mg PO QDD #90 tab 03/21/20 10/30/21 Rx amiodarone 200 mg tablet 200 mg PO QDD #90 tab 12/30/20 10/30/21 Rx pantoprazole 40 mg tablet,delayed 40 mg PO QAM #30 tab 05/07/21 10/30/21 Rx release diclofenac sodium 1 % topical gel 2 g TOPICAL QID 05/27/21 10/30/21 History furosemide 40 mg tablet 40 mg PO QAM #90 tab 07/09/21 10/30/21 Rx Past Med/Surg History Medical History Afib Breath shortness Chest pain Diverticulitis Hypertension Surgical History Hx of cholecystectomy Hx of hysterectomy Family History Mother Stroke Social History Smoking Status: Never smoker Second Hand Exposure: No; Do You Dip or Chew Tobacco: No; Tobacco Cessation Education Requested by Patient: No Hx Alcohol Use: No Hx Substance Use: No Preferred Language: Beninese Communication Ability: Effective Medical 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 Specialist Required: No Beliefs That Will Affect Care: None marital status: Current Living Situation: Alone Current Living Situation Comment: Has an aide who comes over current occupational status: retired How many Children do You have: 3 Other Information That Helps Us Care for You: No Feels Safe at Home: Yes Safety Concerns: Feels Safe At This Time Assistive Devices: None Review of Systems Review of Systems: Constitutional: No fever, sweats or chills Eyes: No diplopia, no worsening or blurred vision ENT: normal hearing, no trouble swallowing, + throat burning as per HPI Respiratory: No cough, sputum, dyspnea at rest or on exertion Cardiovascular: +chest burning as per HPI , no tightness or palpitations Abdomen: No pain, nausea, vomiting, diarrhea or constipation Musculoskeletal: No joint pain, calf pain, swelling Neurologic: No weakness, numbness/tingling, or balance problems Psychiatric: No anxiety or depression Skin: No rash or itch Physical Exam Physical Exam: General: awake, alert, no apparent distress Head: Normocephalic, atraumatic ENT: PERRL, EOMI, no pharyngeal exudate, mucous membranes moist Chest: Crackles at bases bilaterally, throughout the RLL. on room air with sats in 94%, no adventitious breath sounds Cardiac: Regular rate and rhythm, + systolic ejection murmur grade III/, no JVD, normal peripheral pulses, good capillary refill Abdominal: NABS x 4 quadrants, soft, nondistended, nontender to palpation, no rebound or guarding Extremities: Normal inspection, +1 peripheral edema BLE, RLE with chronic venous stasis changes ( pt reports having previous wound there which is now healed), no erythema, + onychomycosis of R great toenail, calfs nontender to palpation Psych: Normal mood and affect Neuro: AAO x 3, strength intact bilaterally and rated 5/5, no motor deficits, speech is clear, no peripheral sensory deficits Results & Data Results & Data ([facility]) Vital Signs (Past 12 Hours) Vital Signs Temp Pulse Pulse Resp BP BP Pulse Ox 10/30/21 07:08 66 24 140/52 L 95 10/30/21 05:48 95 10/30/21 05:39 37 C 67 18 142/83 H 93 Laboratory Results 10/30/21 07:17 Aerobic Blood Culture - Pending Blood Anaerobic Blood Culture - Pending 10/30/21 07:17 Aerobic Blood Culture - Pending Blood Anaerobic Blood Culture - Pending 10/30/21 10/30/21 10/30/21 06:22 05:50 05:50 WBC RBC Hgb Hct MCV MCH MCHC RDW Std Deviation RDW Coeff of Ursula Plt Count MPV Immature Gran % (Auto) Neut % (Auto) Lymph % (Auto) Young % (Auto) Eos % (Auto) Baso % (Auto) Neut # (Auto) Lymph # (Auto) Young # (Auto) Eos # (Auto) Baso # (Auto) Immature Gran # (Auto) PT Cancelled INR Cancelled APTT Cancelled PTT Ratio Cancelled Sodium 134 L Potassium 3.8 Chloride 101 Carbon Dioxide 24 Anion Gap 9 BUN 20 Creatinine 1.45 H Est Cr Clr Drug Dosing 27.4 Est GFR ( Amer) 38.5 Est GFR (Non-Af Amer) 33.2 BUN/Creatinine Ratio 13.8 Glucose 129 H Calcium 9.6 Total Bilirubin 0.9 AST 18 ALT 11 Alkaline Phosphatase 65 Troponin I High Sens 7.3 Total Protein 7.3 Albumin 4.2 Globulin 3.1 Albumin/Globulin Ratio 1.4 SARS-CoV-2, RNA, NAAT NEGATIVE 10/30/21 05:50 WBC 11.37 H RBC 3.60 L Hgb 11.6 L Hct 34.2 L MCV 95.0 MCH 32.2 MCHC 33.9 RDW Std Deviation 48.7 H RDW Coeff of Ursula 13.9 Plt Count 260 MPV 11.5 H Immature Gran % (Auto) 0.4 Neut % (Auto) 66.8 Lymph % (Auto) 17.2 Young % (Auto) 12.8 Eos % (Auto) 2.3 Baso % (Auto) 0.5 Neut # (Auto) 7.61 H Lymph # (Auto) 1.95 Young # (Auto) 1.45 H Eos # (Auto) 0.26 Baso # (Auto) 0.06 Immature Gran # (Auto) 0.04 H PT INR APTT PTT Ratio Sodium Potassium Chloride Carbon Dioxide Anion Gap BUN Creatinine Est Cr Clr Drug Dosing Est GFR ( Amer) Est GFR (Non-Af Amer) BUN/Creatinine Ratio Glucose Calcium Total Bilirubin AST ALT Alkaline Phosphatase Troponin I High Sens Total Protein Albumin Globulin Albumin/Globulin Ratio SARS-CoV-2, RNA, NAAT Diagnostic Findings Chest X-Ray 10/30/21 05:35 XR chest 1V portable CLINICAL HISTORY: Atypical chest pain. COMPARISON STUDY: Chest CT May 05, 2021. Chest radiograph May 27, 2021. FINDINGS: There is no pneumothorax. Small bilateral pleural effusions are noted. Cardiomegaly is unchanged. Bibasilar opacities are again noted. These were shown on prior exam. Diffuse interstitial thickening has slightly decreased when compared to prior exam. IMPRESSION: 1. Bibasilar opacities which favor pneumonia. Pulmonary edema or atelectasis are considered less likely. Radiographic follow up to ensure resolution is recommended. 2. Small bilateral pleural effusions. 3. Stable cardiomegaly. ACT 112: Negative or not required by law. Electronically signed by: Davis Thompson M.D. 10/30/2021 6:36 AM Code Status & VTE Plan Code Status Full code VTE Prophylaxis Plan VTE Prophylaxis will be ordered: Yes Supervising Physician Co-Signing Physician Notes Patient is an 81-year-old female with history of paroxysmal atrial fibrillation currently not on anticoagulation due to falls, GI bleed, diastolic heart failure, hypothyroidism, hypertension, LBBB and other medical problems presents with history of chest discomfort which she describes as heartburn radiating to throat, unrelieved by Pepto-Bismol, Tums. Symptoms started initially at 10:30 PM yesterday which have been gradually worsening and so came to ED for further evaluation. Patient denies any cough, shortness of breath, fever, chills, dizziness, nausea, abdominal pain. Currently symptoms resolved after receiving Maalox. She denies any worsening of leg swelling, weight gain. Takes medications regularly as prescribed. Please review HPI for complete details of presentation. Blood work showed WBC 11.37K, hemoglobin 11.6, platelets 260 K, sodium 134, creatinine 1.45, glucose 129, normal LFTs. BNP, procalcitonin, magnesium pending. COVID screen is negative. Chest x-ray showed bibasilar opacities favoring pneumonia. Also noted small bilateral pleural effusion and cardiomegaly. EKG showed normal sinus rhythm with first-degree AV block, left bundle branch block which is unchanged from prior EKG. On exam patient is moderately built and nourished, no apparent distress,+ significant hearing impairment, normocephalic atraumatic, EOMI, normal breath sounds, basal bilateral rales, +Murmur, 2+ bilateral lower extremity edema, abdomen soft, nontender, normal bowel sounds, alert, awake, oriented, grossly no focal deficits. Chest discomfort likely secondary to acid reflux. Troponins negative. EKG unchanged from prior. Continue Protonix. Added Pepcid twice daily. Check resting echo. Mildly volume overloaded secondary to acute on chronic diastolic heart failure. Started on IV Lasix 40 mg daily. I's and O's, daily weights, fluid restrictions. Cardiology consulted. Also concerning for pneumonia. Empirically started on Rocephin, doxycycline. Currently asymptomatic. Follow-up procalcitonin. Check TSH. Avoid QTC prolonging meds. I personally reviewed the record. Patient is interviewed and examined at bedside. Patient's care is coordinated with Deb Sherman PA-C. Please refer to the documentation above for details of patient's presentation and for discussion of other issues. (1) Chest pain Chest pain type: unspecified Qualified Code(s): R07.9 - Chest pain, unspecified (2) Pneumonia Laterality: bilateral Lung location: lower lobe of lung Pneumonia type: due to unspecified organism Qualified Code(s): J18.9 - Pneumonia, unspecified organism
[2021-10-30] MEDS ORDERED: FUROSEMIDE 40 MG/4 ML VIAL IV ONE (09:39)
[2021-10-30] MEDS ORDERED: ACETAMINOPHEN 325 MG TAB PO PRN (09:39)
[2021-10-30] MEDS ORDERED: ONDANSETRON INJ 2 MG/ML 2 ML VIAL IV PRN (09:39)
[2021-10-30 10:11] LABS: Partial Thromboplastin Time 27.6 Seconds (21.0-31.0); Prothrombin Time 10.3 Seconds (9.0-12.0)
[2021-10-30] MEDS: ALBUT/IPRATROP 3MG/0.5MG NEB 3 ML VIAL NEB SCH ×4 (10:21→22:40)
[2021-10-30] MEDS: guaiFENesin 600 MG TABCR PO SCH ×2 (10:50→20:54)
[2021-10-30] MEDS: HEPARIN SOD 5,000 UNIT/0.5 ML VIAL SQ SCH ×2 (10:50→20:53)
[2021-10-30] MEDS: FAMOTIDINE 20 MG TAB PO SCH ×2 (10:50→20:53)
--- NOTE | 2021-10-30 15:59 | Cardiology Consultation ---
Date of Consultation October 30, 2021 Assessment & Plan (1) Atypical chest pain: (2) Chronic heart failure with preserved ejection fraction: (3) Paroxysmal atrial fibrillation: (4) Hypertension: (5) Mitral regurgitation: ASSESSMENT/PLAN: 1. Atypical chest pain: Chest pain is not consistent with ischemic heart disease. High sensitivity troponin is negative despite hours worth of pain. No further ischemic evaluation necessary for this pain. Has had this pain in the past. Consider GI etiology. Defer further workup to primary hospitalist service. 2. Chronic heart failure with preserved EF: She has edema. BNP is elevated and relatively stable compared to May 2021. Agree with additional diuretic. Would try to achieve net negative fluid balance over the next 24 hours. Monitor renal function and electrolytes. Low-sodium diet. Daily weights. Strict I&Os. Follows in Heart failure program. 3. Paroxysmal atrial fibrillation: In sinus rhythm. On amiodarone. Transaminase levels normal. TSH just slightly elevated. Anticoagulation therapy has been discontinued in the past due to reported melena and frequent falls. She has not been interested in resuming anticoagulation per records. 4. Mitral regurgitation: Reported moderate to severe in the past. A repeat echo has been ordered by the primary hospitalist service and is currently pending. Monitor over time. 5. Hypertension: Blood pressure has been normotensive to mildly hypertensive. Continue to monitor. Continue home medications. 6. Disposition: Plan of care communicated with Luana Sherman. Patient signed out to Alysa Mcrae, of the heart failure program, who can assist in her care tomorrow along with Dr. Mendez who will be on-call for Cardiology. Today's visit was 40 minutes in duration, which includes [id number] time, counseling patient, and coordinating care with other providers as noted. Chart was also reviewed and chart completion. Thank you for allowing me to participate in the care of your patient. Please call for any other questions or concerns. Sincerely, Kaiser Khan M.D. History of Present Illness Reason for Consultation: Chest pain Requesting Physician: Deb Sherman Attending Physician: David Pederson MD History of Present Illness Ms. Carlson is a very pleasant 81-year-old female with history significant for paroxysmal atrial fibrillation, heart failure with preserved EF, hypertension, dyslipidemia, and LBBB. Her primary school program director is Dr. Canela. She also follows in the Heart failure program with Alysa Mcrae. She was admitted on 10/30/2021 with chest pain and concern for pneumonia. She describes chest discomfort as a substernal burning sensation that extended into her neck/throat. It started approximately 10:00 p.m. last night and persisted for several hours. She states it resolved prior to arrival in the emergency department. She noted intermittent episodes over the past week, all occurring at night while in bed, but much shorter in duration and less severe. She denies any other radiation of the pain. She denies shortness of breath or other associated symptoms. She has chronic lower extremity edema but believes that has been stable. Her weight at home has been stable at 136 lb. She maintains a low-sodium diet. She denies syncope, near-syncope, palpitations, melena, hematochezia, hematuria, or other bleeding. She is sedentary but when she does ambulate, uses a walker. She has been on anticoagulation therapy in the past but reports that it was discontinued after several falls. She remains chest pain-free during this hospital stay. Review of systems: As above. Review of systems otherwise negative/unremarkable. Family history: no known premature CAD. Social history: She denies tobacco, alcohol, or drug abuse. . Lives alone. Three children. Grandchildren and great grandchildren. She was alone in her hospital room. Allergies Allergy/AdvReac Type Severity Reaction Status Date / Time metronidazole Allergy Intermediate GI SYMPTOMS Verified 05/05/21 08:23 Bactrim AdvReac Mild GI SYMPTOMS Unverified 12/21/17 08:00 Quinolones AdvReac Mild HIVES Verified 05/05/21 08:23 sulfamethoxazole AdvReac Mild GI SYMPTOMS Verified 05/05/21 08:23 trimethoprim AdvReac Mild GI SYMPTOMS Verified 05/05/21 08:23 Home Medications Medication Instructions Recorded Confirmed Type aspirin 325 mg tablet 325 mg PO QAM #100 tab 01/28/19 10/30/21 History calcium carbonate 600 mg calcium 600 mg PO QAM tab 01/28/19 10/30/21 History (1,500 mg) tablet (Calcium) metoprolol tartrate 50 mg tablet 75 mg PO QDD #30 tab 01/28/19 10/30/21 History (Lopressor) levothyroxine 75 mcg capsule 75 mcg PO QAM 03/14/19 10/30/21 History amlodipine 10 mg tablet 10 mg PO QDD #90 tab 03/21/20 10/30/21 Rx amiodarone 200 mg tablet 200 mg PO QDD #90 tab 12/30/20 10/30/21 Rx pantoprazole 40 mg tablet,delayed 40 mg PO QAM #30 tab 05/07/21 10/30/21 Rx release diclofenac sodium 1 % topical gel 2 g TOPICAL QID 05/27/21 10/30/21 History furosemide 40 mg tablet 40 mg PO QAM #90 tab 07/09/21 10/30/21 Rx Patient History Medical History (Updated 10/30/21 @ 16:26 by Jay Khan MD) (HFpEF) heart failure with preserved ejection fraction Afib Breath shortness Chest pain Diverticulitis GERD (gastroesophageal reflux disease) Hypertension Hypothyroidism Mitral regurgitation On amiodarone therapy Surgical History Hx of cholecystectomy Hx of hysterectomy Family History Mother Stroke Social History Smoking Status: Never smoker Second Hand Exposure: No; Do You Dip or Chew Tobacco: No; Tobacco Cessation Education Requested by Patient: No Hx Alcohol Use: No Hx Substance Use: No Preferred Language: Kiswahili Communication Ability: Effective Manager Body Required: No Beliefs That Will Affect Care: None marital status: Current Living Situation: Alone Current Living Situation Comment: Has an aide who comes over current occupational status: retired How many Children do You have: 3 Other Information That Helps Us Care for You: No Feels Safe at Home: Yes Safety Concerns: Feels Safe At This Time Assistive Devices: None Physical Exam Physical Exam: Gen.: No acute distress. Alert. HEENT: Anicteric sclera. Neck: No JVD. No hepatic jugular reflux. Bilateral bruit versus radiation of cardiac murmur. Normal carotid upstrokes bilaterally. Cardiac: PMI was nondisplaced. No ventricular heave. Regular with ectopy. Normal S1-S2. 1/6 systolic ejection murmur. No rubs or gallops. Pulmonary: Bibasilar crackles, otherwise clear to auscultation bilaterally. Left crackles improved following cough. Abdomen: Soft, nontender, nondistended, with normoactive bowel sounds. No bruits noted. Extremities: 2+ radial pulses bilaterally. 2+ posterior tibialis pulses bilaterally. 1+ bilateral lower extremity edema. No cyanosis. Psychiatric: Affect appears appropriate. Results & Data ([facility]) Vital Signs (Past 12 Hours) Vital Signs Temp Pulse Pulse Resp BP BP Pulse Ox 10/30/21 14:53 60 10/30/21 14:16 63 18 91 10/30/21 11:11 36.8 C 67 18 150/78 H 94 10/30/21 10:25 56 L 18 92 10/30/21 10:00 63 10/30/21 09:39 37.2 C 60 16 149/60 H 94 10/30/21 09:13 63 20 130/53 L 94 10/30/21 09:01 63 20 130/53 L 94 10/30/21 07:08 66 24 140/52 L 95 10/30/21 05:48 95 10/30/21 05:39 37 C 67 18 142/83 H 93 Intake & Output 10/28/21 10/29/21 10/30/21 10/31/21 06:59 06:59 06:59 06:59 Intake Total 325 / 325 Output Total 500 / 500 Balance -175 / -175 Weight 152 lb 5.431 oz 152 lb 1.903 oz Laboratory Results Laboratory Results - last 24 hr 10/30/21 10/30/21 10/30/21 05:50 05:50 05:50 WBC 11.37 H RBC 3.60 L Hgb 11.6 L Hct 34.2 L MCV 95.0 MCH 32.2 MCHC 33.9 RDW Std Deviation 48.7 H RDW Coeff of Ursula 13.9 Plt Count 260 MPV 11.5 H Immature Gran % (Auto) 0.4 Neut % (Auto) 66.8 Lymph % (Auto) 17.2 [place]orte % (Auto) 12.8 Eos % (Auto) 2.3 Baso % (Auto) 0.5 Neut # (Auto) 7.61 H Lymph # (Auto) 1.95 [place] # (Auto) 1.45 H Eos # (Auto) 0.26 Baso # (Auto) 0.06 Immature Gran # (Auto) 0.04 H PT Cancelled INR Cancelled APTT Cancelled PTT Ratio Cancelled Sodium 134 L Potassium 3.8 Chloride 101 Carbon Dioxide 24 Anion Gap 9 BUN 20 Creatinine 1.45 H Est Cr Clr Drug Dosing 27.4 Est GFR ( Amer) 38.5 Est GFR (Non-Af Amer) 33.2 BUN/Creatinine Ratio 13.8 Glucose 129 H Calcium 9.6 Total Bilirubin 0.9 AST 18 ALT 11 Alkaline Phosphatase 65 Troponin I High Sens 7.3 B-Natriuretic Peptide Total Protein 7.3 Albumin 4.2 Globulin 3.1 Albumin/Globulin Ratio 1.4 Procalcitonin SARS-CoV-2, RNA, NAAT 10/30/21 10/30/21 10/30/21 06:22 09:04 09:04 WBC RBC Hgb Hct MCV MCH MCHC RDW Std Deviation RDW Coeff of Ursula Plt Count MPV Immature Gran % (Auto) Neut % (Auto) Lymph % (Auto) [place] % (Auto) Eos % (Auto) Baso % (Auto) Neut # (Auto) Lymph # (Auto) [place] # (Auto) Eos # (Auto) Baso # (Auto) Immature Gran # (Auto) PT 10.3 INR 1.0 APTT 27.6 PTT Ratio 1.0 Sodium Potassium Chloride Carbon Dioxide Anion Gap BUN Creatinine Est Cr Clr Drug Dosing Est GFR ( Amer) Est GFR (Non-Af Amer) BUN/Creatinine Ratio Glucose Calcium Total Bilirubin AST ALT Alkaline Phosphatase Troponin I High Sens 7.2 B-Natriuretic Peptide Total Protein Albumin Globulin Albumin/Globulin Ratio Procalcitonin SARS-CoV-2, RNA, NAAT NEGATIVE 10/30/21 10/30/21 10:12 10:12 WBC RBC Hgb Hct MCV MCH MCHC RDW Std Deviation RDW Coeff of Ursula Plt Count MPV Immature Gran % (Auto) Neut % (Auto) Lymph % (Auto) [place] % (Auto) Eos % (Auto) Baso % (Auto) Neut # (Auto) Lymph # (Auto) [place] # (Auto) Eos # (Auto) Baso # (Auto) Immature Gran # (Auto) PT INR APTT PTT Ratio Sodium Potassium Chloride Carbon Dioxide Anion Gap BUN Creatinine Est Cr Clr Drug Dosing Est GFR ( Amer) Est GFR (Non-Af Amer) BUN/Creatinine Ratio Glucose Calcium Total Bilirubin AST ALT Alkaline Phosphatase Troponin I High Sens B-Natriuretic Peptide 402 H Total Protein Albumin Globulin Albumin/Globulin Ratio Procalcitonin < 0.05 SARS-CoV-2, RNA, NAAT Diagnostic Findings Telemetry personally reviewed: Sinus rhythm. No arrhythmia. ECG personally reviewed from 10/30/2021 at 5:39 a.m.: Sinus rhythm with first- degree AV block. 67 beats per minute. LBBB. Chest x-ray 10/30/2021: Bibasilar opacities, favored pneumonia per Radiology. Small bilateral pleural effusions. Echo 05/05/2021: Normal LV size, wall motion. EF 60-65%. Sclerotic aortic valve without stenosis. Mild AI. Moderate to severe MR. Medications Administered Current Inpatient Medications Acetaminophen (Acetaminophen 325 Mg Tab) 650 mg PO Q4H PRN PRN Reason: Moderate Pain Stop: 11/29/21 09:38 Albuterol (Albut/Ipratrop 3mg/0.5mg Neb 3 Ml Vial) 3 ml NEB Q4R [facility]; Protocol Stop: 11/29/21 10:59 Last Admin: 10/30/21 14:15 Dose: 3 ml Documented by: Amiodarone HCl (Amiodarone 200 Mg Tab) 200 mg PO QDD [facility] Stop: 11/29/21 16:29 Amlodipine Besylate (Amlodipine Besylate 5 Mg Tab) 10 mg PO QDD [facility] Stop: 11/29/21 16:29 Aspirin (Aspirin 325 Mg Ectab) 325 mg PO QAM [facility] Stop: 11/30/21 08:59 Calcium Carbonate (Calcium Carbonate 1250mg Tab) 1,250 mg PO DAILY@1200 [facility] Stop: 11/30/21 08:59 Doxycycline Hyclate (Doxycycline Hyclate 100 Mg Cap) 100 mg PO BID [facility] Stop: 11/06/21 20:59 Famotidine (Famotidine 20 Mg Tab) 20 mg PO BID [facility] Stop: 11/29/21 09:59 Last Admin: 10/30/21 10:50 Dose: 20 mg Documented by: Furosemide (Furosemide 40 Mg/4 Ml Vial) 40 mg IV DAILY [facility] Stop: 11/30/21 08:59 Guaifenesin (Guaifenesin 600 Mg Tabcr) 1,200 mg PO Q12 [facility] Stop: 11/29/21 09:38 Last Admin: 10/30/21 10:50 Dose: 1,200 mg Documented by: Heparin Sodium (Porcine) (Heparin Sod 5,000 Unit/0.5 Ml Vial) 5,000 units SQ Q12 [facility] Stop: 11/29/21 09:38 Last Admin: 10/30/21 10:50 Dose: 5,000 units Documented by: Ceftriaxone Sodium 2,000 mg/ (Dextrose) 70 mls @ 100 mls/hr IV Q24H [facility]; Protocol Stop: 11/07/21 07:59 Levothyroxine Sodium (Levothyroxine Sodium 75 Mcg Tablet) 75 mcg PO DAILYBB [facility] Stop: 11/30/21 06:29 Metoprolol Tartrate (Metoprolol Tartrate 25 Mg Tab) 75 mg PO QDD [facility] Stop: 11/29/21 16:29 Pantoprazole Sodium (Pantoprazole 40 Mg Tab) 40 mg PO QAM [facility] Stop: 11/30/21 08:59 PG Care Time/CCT Total # of Minutes Spent Total Time Spent with Patient: Total time spent is greater than 50% in coordination of care (as documented) at patient's floor/unit and/or counseling patient: Coding Level of Care Code 86667 Office/Outpt Visit, Est Diagnoses Atypical chest pain R07.89 Chronic heart failure with preserved ejection fraction I50.32 Paroxysmal atrial fibrillation I48.0 Hypertension I10 Mitral regurgitation I34.0
[2021-10-30] MEDS ORDERED: amLODIPine BESYLATE 5 MG TAB PO SCH (16:30)
[2021-10-30] MEDS ORDERED: AMIODARONE 200 MG TAB PO SCH (16:30)
[2021-10-30] MEDS ORDERED: METOPROLOL TARTRATE 25 MG TAB PO SCH (16:30)
[2021-10-30] MEDS: DOXYCYCLINE HYCLATE 100 MG CAP PO SCH (20:54)
[2021-10-30] MEDS: DICLOFENAC SOD 1% GEL 100 GM TUBE EXT PRN (23:51)
[2021-10-31] MEDS: ALBUT/IPRATROP 3MG/0.5MG NEB 3 ML VIAL NEB SCH ×2 (02:10→06:54)
[2021-10-31 05:54] LABS: Hematocrit (blood only) 30.9 % (37-47); Mean Corpuscular Hgb Conc 35.6 g/dL (32-36); Mean Corpuscular Volume 95.4 fL (80-100); Mean Platelet Volume 11.2 fL (7.4-10.4); Platelet Count 181 K/uL (130-400); RDW Coefficient of Variation 14.1 % (11.5-14.5); RDW Standard Deviation 49.2 fL (36.4-46.3); Red Blood Count 3.24 M/uL (4.2-5.4); White Blood Count 10.71 K/uL (4.8-10.8)
[2021-10-31 06:13] LABS: BUN Creatinine Ratio 14.9 (10-20); Calcium 9.1 mg/dl (8.5-10.1); Chol HDL Ratio 3.8 (0-5); Creatinine Clr Calc Pharmacy 29.1 ml/min; Est GFR (African American) 47.9 ml/min; Est GFR (Non-African American) 41.3 ml/min; Magnesium 2.1 mg/dl (1.7-2.4); Potassium 4.1 mmol/L (3.5-5.1)
[2021-10-31] MEDS ORDERED: LEVOTHYROXINE SODIUM 75 MCG TABLET PO SCH (06:30)
--- NOTE | 2021-10-31 07:33 | Electrocardiogram Report ---
Test Reason : Blood Pressure : / mmHG Vent. Rate : 067 BPM Atrial Rate : 067 BPM P-R Int : 322 ms QRS Dur : 146 ms QT Int : 494 ms P-R-T Axes : 073 010 033 degrees QTc Int : 521 ms Sinus rhythm with 1st degree A-V block Left bundle branch block Abnormal ECG When compared with ECG of 27-MAY-2021 10:07, No significant change was found Confirmed by Jay Khan ([id number]) on 10/31/2021 7:32:44 AM Referred By: REFERRED SELF Confirmed By:Jay Khan
[2021-10-31] MEDS ORDERED: cefTRIAXone SODIUM 2,000 MG in DEXTROSE 5% 50 ML IV SCH (08:00)
[2021-10-31] MEDS: FAMOTIDINE 20 MG TAB PO SCH (08:51)
[2021-10-31] MEDS: DOXYCYCLINE HYCLATE 100 MG CAP PO SCH (08:51)
[2021-10-31] MEDS: DICLOFENAC SOD 1% GEL 100 GM TUBE EXT PRN (08:51)
[2021-10-31] MEDS: guaiFENesin 600 MG TABCR PO SCH (08:52)
[2021-10-31] MEDS: HEPARIN SOD 5,000 UNIT/0.5 ML VIAL SQ SCH (08:52)
[2021-10-31] MEDS ORDERED: CALCIUM CARBONATE 1250MG TAB PO SCH ×2 (09:00→12:00)
[2021-10-31] MEDS ORDERED: FUROSEMIDE 40 MG/4 ML VIAL IV SCH (09:00)
[2021-10-31] MEDS ORDERED: PANTOprazole 40 MG TAB PO SCH (09:00)
[2021-10-31] MEDS ORDERED: ASPIRIN 325 MG ECTAB PO SCH (09:00)
[2021-10-31 09:28] LABS: Estimated Average Glucose 108 mg/dl; Hemoglobin A1C 5.4 % (4.5-5.6)
[2021-10-31] MEDS ORDERED: ALBUT/IPRATROP 3MG/0.5MG NEB 3 ML VIAL NEB PRN (10:31)
--- NOTE | 2021-10-31 12:39 | Electrocardiogram Report ---
Test Reason : Blood Pressure : / mmHG Vent. Rate : 077 BPM Atrial Rate : 077 BPM P-R Int : 320 ms QRS Dur : 142 ms QT Int : 462 ms P-R-T Axes : 089 050 -14 degrees QTc Int : 522 ms Sinus rhythm with 1st degree A-V block Non-specific intra-ventricular conduction block Cannot rule out Septal infarct , age undetermined Abnormal ECG When compared with ECG of 30-OCT-2021 05:39, (unconfirmed) No significant change was found Confirmed by Julio César Mendez ([id number]) on 10/31/2021 12:39:14 PM Referred By: REFERRED SELF Confirmed By:Julio César Mendez
--- NOTE | 2021-10-31 13:24 | XCELERA ---
[id number]
--- NOTE | 2021-10-31 14:01 | Cardiology Progress Note ---
Date of Service October 31, 2021 Assessment & Plan (1) Atypical chest pain: (2) Chronic heart failure with preserved ejection fraction: (3) Paroxysmal atrial fibrillation: (4) Hypertension: (5) Mitral regurgitation: Plan: ASSESSMENT/PLAN: 1. Atypical chest pain: No further symptoms. Chest pain is not consistent with ischemic heart disease. High sensitivity troponin is negative despite hours worth of pain. No further ischemic evaluation necessary for this pain. Has had this pain in the past. Consider GI etiology. Defer further workup to primary hospitalist service. 2. Chronic heart failure with preserved EF: NYHA Class II-III symptoms. EF preserved, 60-65%. She has edema. BNP is elevated and relatively stable compared to May 2021. Continue to optimize volume status as long as renal function is stable. She had Lasix 40 mg IV today. Reminded patient to measure urine output. Monitor renal function and electrolytes. Low-sodium diet. Daily weights. Strict I&Os. Follows in Heart failure program. 3. Paroxysmal atrial fibrillation: In sinus rhythm. On amiodarone. Transaminase levels normal. TSH just slightly elevated. Anticoagulation therapy has been discontinued in the past due to reported melena and frequent falls. She has not been interested in resuming anticoagulation per records. 4. Mitral regurgitation: Reported moderate to severe in the past. A repeat echo this admission- moderate. Monitor over time. 5. Hypertension: Blood pressure has been normotensive to mildly hypertensive. Continue to monitor. Continue home medications. 6. Disposition: Patient is stable from a cardiology standpoint. Dr. Talley will be covering for the weekend if needed. Recommend outpatient follow up with the heart failure program to monitor volume status. Admission and Anticipated Discharge Date Admission Date: October 30, 2021 Subjective Patient sitting up at the bedside. She voices no complaints today. She feels her breathing is at baseline. She has had no further chest pain/discomfort. Her lower extremity edema is stable and chronic. Telemetry reviewed- sinus 70s/80s. I&Os show net neutral but she admits voids were unmeasured. Weight is 135 lb on standing scale this am. which is consistent with her baseline. Physical Exam Physical Exam: Gen.: No acute distress. Alert. Room air. HEENT: Anicteric sclera. Neck: No JVD. No hepatic jugular reflux. Bilateral bruit versus radiation of cardiac murmur. Normal carotid upstrokes bilaterally. Cardiac: PMI was nondisplaced. No ventricular heave. Regular with ectopy. Normal S1-S2. 1/6 systolic ejection murmur. No rubs or gallops. Pulmonary: Normal respiratory effort. Lungs clear to auscultation. Abdomen: Soft, nontender, nondistended, with normoactive bowel sounds. No bruits noted. Extremities: 2+ radial pulses bilaterally. 2+ posterior tibialis pulses bilaterally. 1+ bilateral lower extremity edema. No cyanosis. Psychiatric: Affect appears appropriate. Results & Data ([facility]) Vital Signs (Past 12 Hours) Vital Signs Temp Pulse Pulse Resp BP Pulse Ox Pulse Ox 10/31/21 12:00 98.2 F 77 16 132/64 97 10/31/21 08:00 98.2 F 72 76 18 148/74 H 96 97 10/31/21 06:54 76 16 93 10/31/21 04:24 98.8 F 76 18 136/54 L 94 10/31/21 02:11 73 15 92 PG Care Time/CCT Total # of Minutes Spent Total Time Spent with Patient: Total time spent is greater than 50% in coordination of care (as documented) at patient's floor/unit and/or counseling patient: Coding Level of Care Code 30412 Subseq Hosp Care Lvl 3 Diagnoses Atypical chest pain R07.89 Chronic heart failure with preserved ejection fraction I50.32 Paroxysmal atrial fibrillation I48.0 Hypertension I10 Mitral regurgitation I34.0
--- NOTE | 2021-10-31 15:06 | Discharge Summary ---
Date of Service October 31, 2021 Admission HPI Per Admitting Provider This is an 81-year-old female with PMHx of A. fib, HTN, CHF with preserved EF, hypothyroidism, GERD, anemia, who presents to the ER with acute onset of chest pain which began last night around 10:30 PM. She reports that this burning in her throat and chest was not relieved with a Tums tablet. This morning when she talked to her nurse through [facility], which she follows with. They instructed her to call ambulance and come to the hospital. She denies any discomfort presently. She states she has not had shortness of breath cough, fever, chills, chest palpitations, flutter, pressure, heaviness and does not even necessarily consider the burning a chest pain. She lives at home independently, and uses a walker at baseline. She denies any recent falls but reports that there was a period a few years ago where she was on Coumadin and fell almost 20 times within a 2-year span and was taken off the blood thinner. She reports having a touch of pneumonia and possible CHF exacerbation last fall. Otherwise she has not had symptoms like this. Patient reports eating and drinking without difficulty, no risk for aspiration, bowels are moving regularly and no issues with urination. She does not wear O2 at baseline. She did not take any of her routinely scheduled morning medications as she was here in the ER. Principal Diagnosis Bilateral pneumonia Small bilateral pleural effusions atypical chest pain-resolved, possible GI etiology chronic heart failure with preserved ejection fraction paroxysmal atrial fibrillation mitral regurgitation Hypertension Discharge Exam CONSTITUTIONAL: WNWD, vitals as above, generally well-appearing, NAD EYES: normal conjunctivae, no scleral icterus ENT: external ear and nose normal, MMM NECK: trachea midline, RESPIRATORY: clear to auscultation bilaterally, no crackles, rales or wheezes, normal respiratory effort CARDIOVASCULAR: regular rate and rhythm, S1 and 2 heard without murmurs, gallops or rubs, no JVD, no peripheral edema CHEST: inspection of chest was normal GASTROINTESTINAL: soft, nontender, ND, no guarding MUSCULOSKELETAL: strength 5/5 throughout, head is normocephalic and atraumatic, SKIN: warm and dry, NEUROLOGIC: CN 2-12 grossly intact, no sensory deficit, normal cognition, normal speech, no tremor, no gross focal deficits. PSYCHIATRIC: alert cooperative and oriented to person, place and time. Euthymic mood, makes good eye contact, language grossly intact, recent and remote memory grossly intact. Discharge Data Allergies Allergy/AdvReac Type Severity Reaction Status Date / Time metronidazole Allergy Intermediate GI SYMPTOMS Verified 05/05/21 08:23 Bactrim AdvReac Mild GI SYMPTOMS Unverified 12/21/17 08:00 Quinolones AdvReac Mild HIVES Verified 05/05/21 08:23 sulfamethoxazole AdvReac Mild GI SYMPTOMS Verified 05/05/21 08:23 trimethoprim AdvReac Mild GI SYMPTOMS Verified 05/05/21 08:23 Consultations 10/30/21 07:22 ED Decision to Admit Stat 10/30/21 09:38 Consult Cardiology Routine Hospital Course (1) Pneumonia: - Admit to med surg with tele - Sputum culture, mucinex, duonebs QID and Q2H prn, kurtis mukherjee -Patient is not requiring supplemental O2 presently - COVID negative - WBC at time of admission = 11.37, checking Pro-Jacob, afebrile - BCx x 2, follow - CXR reviewed as above - concern that she might be also slightly volume overloaded, giving 1 dose of IV Lasix 40 mg now - Continue antibiotic therapy with ceftriaxone IV and doxycycline p.o. (2) Chest pain: - Pt had similar presentation last fall - concern for possible diastolic CHF exacerbation underlying pna as above - Trend cardiac biomarkers, initial set was negative, second set in process - Check bnp and mag - EKG reviewed as above - Check 2 D echo - Consult cardiology - follows with [facility] and the heart failure clinic - Dry weight of 140 lbs. - PT/OT consulted - Giving lasix as above - HH diet with 200mL fluid restriction for now (3) (HFpEF) heart failure with preserved ejection fraction: (4) Hypertension: - Cont metoprolol tartrate 75 mg daily, lasix 40 mg daily, amlodipine 10 mg daily (5) Atrial fibrillation: - Continue asa 324 daily, not on formal anticoagulation due to hx of falls when on coumadin - Follows with Dr. Canela and is supposed to see him in January - Cont rate control with amiodarone 200 mg daily (6) GERD (gastroesophageal reflux disease): - Continue pantoprazole and will add famotidine (7) Hypothyroidism: - TSH 7.02, continue levothyroxine 75 mcg daily DVT ppx: - teds, scds, heparin subcu CODE: Full code Dispo: From home, likely to remain in the hospital x 1-2 days (8) Bilateral pleural effusion: Total Time Total Time Spent Total Time Spent (In Minutes): 60 Discharge Plan Discharge Items Patient Disposition: Home - Self-Care Reason For Visit: LLL PNEUMONIA Discharge Diagnosis: Bilateral pneumonia Small bilateral pleural effusions atypical chest pain-resolved, possible GI etiology chronic heart failure with preserved ejection fraction paroxysmal atrial fibrillation mitral regurgitation Hypertension Condition on Discharge: Good Activity: Resume your previous activity Non-emergency contact: Primary Care Provider Call non-emergency contact if: you have any medication questions, your symptoms worsen, your pain is not controlled, your pain is worsening, your pain is unusual for you and your pain is concerning for you Follow-up/Referrals: Alysa Mcrae PA-C [Physician Outdoor Guide] - 11/07/21 11:30 am Kodi Lizarraga MD [Primary Care Provider] - (Date & Time 11/07/2021 3:00 PM Provider Kodi Lizarraga MD Department [facility] ) Diet: Heart Healthy Add Attending Provider Instructions: Please take all medications as instructed on discharge list below. You were found to have pneumonia on chest xray. Please complete the antibiotic course and obtain a repeat chest xray in 4-6 weeks to ensure complete resolution of pneumonia. You are being given some additional medication to take for heartburn, called Pepcid. Please take your Protonix every day, and take the new Pepcid only as needed for heartburn issues. Please try to avoid foods that may be a trigger for symptoms such as foods high in acid (eg: OJ, tomato sauce), spice, or caffeine or chocolate. Please followup in the heart failure clinic early next week and continue to take your weight every day. Please continue to monitor your sodium intake and limit this to 2000mg in 24 hours. It is recommended that you followup with your primary care provider within 1 week of hospital discharge to ensure you are feeling well after returning home, and to order your repeat CXR. If you have not already had one, please consider a pneumonia vaccine and continue annual influenza vaccinations, also. It was a pleasure taking care of you! Please call if you have any questions or problems. You can reach a [facility] hospitalist on duty at [facility] 24 hours a day by calling [phone]. Take care of yourself. Gema Barnard DO [facility] It was a pleasure taking care of you! Please call if you have any questions or problems. You can reach a [facility] hospitalist on duty at [facility] 24 hours a day by calling [phone]. Take care of yourself. Gema Barnard DO [facility] Addtl Warm In Worker Provider Instructions: Call [phone] and go to the Emergency Room if: * You have tightness or pain in your chest that does not go away with rest or Nitroglycerin * You are very short of breath even with rest Call your doctor if any of the following symptoms or problems start or get worse: * Shortness of breath or difficulty breathing * Wake up at night short of breath * Chest pain * Cough * Swelling of your hands, fee, or legs * More fatigued or tired with your normal activity * Palpitations - sudden fast heart beats WEIGHT * Weigh yourself every morning after using the bathroom. * Use the same scale. * Wear the same amount of clothing. * Write your weight down on your chart. * Call your doctor if you gain more than 2-3 pounds in 1-2 days. MEDICATIONS * Use this discharge instruction sheet for instructions. * Take your medications at the time your doctor ordered. * Do not skip a dose of your medicines. * If you miss a dose of medicine, take as soon as possible, but DO NOT DOUBLE A DOSE. * Read your medicine information when you get home. * Know all of the side effects of your medicine. * Call your doctor's office if you have any side effects. * Be sure all of your doctors know what medicine and herbs you take (including cold, flu, and herbal medicine). * Pain Medicine: If you do not get relief from your pain, please call your doctor for help. Take the following with you to your follow-up doctor appointments: * Weight Chart * Medication List * List of questions Do not drink excessive alcohol, beer or wine. Pending Studies at Discharge: No Stand-Alone Forms: My [facility] Medications and DC Order Prescriptions: New doxycycline hyclate 100 mg Capsule 100 mg PO BID Qty: 14 RF: 0 famotidine 20 mg Tablet 20 mg PO DAILY PRN (Reason: heartburn) Qty: 30 RF: 0 amoxicillin 500 mg tablet 1,000 mg PO Q12H Qty: 28 RF: 0 Continued amiodarone 200 mg tablet 200 mg PO QDD Qty: 90 RF: 3 furosemide 40 mg tablet 40 mg PO QAM Qty: 90 RF: 3 amlodipine 10 mg tablet 10 mg PO QDD Qty: 90 RF: 3 aspirin 325 mg tablet 325 mg PO QAM Qty: 100 RF: 0 metoprolol tartrate [Lopressor] 50 mg tablet 75 mg PO QDD Qty: 30 RF: 0 calcium carbonate [Calcium 600] 600 mg calcium (1,500 mg) tablet 600 mg PO QAM RF: 0 levothyroxine 75 mcg capsule 75 mcg PO QAM RF: 0 diclofenac sodium 1 % gel 2 g TOPICAL QID RF: 0 pantoprazole 40 mg Tablet,Delayed Release (Dr/Ec) 40 mg PO QAM Qty: 30 RF: 0 Discharge Orders: Discharge Order (Routine); Ordered 10/31/21 Ordered By: Gema Barnard Admission Data Admit Date/Time: 10/30/21 08:39 Attending Provider: Gema Barnard Admit Provider: Gema Barnard Primary Care Provider: Kodi Lizarraga Other Providers: Jimbo Moses ; Jay Khan Other Interventions: Discharge Summary Assessment (RN) Last Done: 10/31/21 15:25
[2021-11-01] MEDS ORDERED: FAMOTIDINE 20 MG TAB PO SCH (09:00)
== END 2021-10-31 16:53 | disposition home or self-care (01) ==
LOC: ED 05:33 → 2E 05:33 → SUATTDRO 08:39 → 2E 09:13

== ENCOUNTER 2024-01-28 15:58 | Inpatient (IN) ==
[2024-01-28 17:30] LABS: Basophils # (auto) 0.07 K/uL (0.00-0.20); Basophils % (auto) 0.7 %; Eosinophils # (auto) 0.36 K/uL (0.00-0.50); Eosinophils % (auto) 3.4 %; Hematocrit (blood only) 36.8 % (37.0-47.0); Hemoglobin 12.2 g/dl (12.0-16.0); Immature Granulocytes # (auto) 0.08 K/uL (0.01-0.20); Immature Granulocytes % (auto) 0.8 %; Lymphocytes # (auto) 2.65 K/uL (1.20-3.40); Lymphocytes % (auto) 24.9 %; Mean Corpuscular Hemoglobin 31.9 pg (25.0-34.0); Mean Corpuscular Hgb Conc 33.2 g/dL (32.0-36.0); Mean Corpuscular Volume 96.3 fL (80.0-100.0); Mean Platelet Volume 10.6 fL (9.4-12.4); Monocytes # (auto) 1.16 K/uL (0.11-0.59); Monocytes % (auto) 10.9 %; Neutrophils # (auto) 6.31 K/uL (1.40-6.50); Neutrophils % (auto) 59.3 %; Platelet Count 250 K/uL (130-400); RDW Coefficient of Variation 13.3 % (11.5-14.5); RDW Standard Deviation 47.3 fL (36.4-46.3); Red Blood Count 3.82 M/uL (4.20-5.40); White Blood Count 10.63 K/ul (4.8-10.8)
[2024-01-28 17:31] LABS: Appearance Urine Cloudy (Clear); Bacteria Urine Automated None Seen (None Seen); Bilirubin Urine Negative (Negative); Blood Urine Negative (Negative); Color Urine Yellow; Epithelial Cell Urine Auto 0-2 /hpf (0-2); Glucose Urine UA Negative (Negative); Ketones Urine Negative (Negative); Leukocyte Esterase Urine 3+ (Negative); Nitrite Urine Negative (Negative); Protein Urine Negative (Negative); Specific Gravity Urine 1.014 (1.000-1.030); Urobilinogen Urine Negative (Negative); WBC Urine Automated >50 /hpf (0-5)
--- NOTE | 2024-01-28 17:31 | XRay Report ---
XR chest 1V not portable CLINICAL HISTORY: Sepsis COMPARISON STUDY: Chest CT May 05, 2021. Chest radiograph November 27, 2023. FINDINGS: There is no pneumothorax or pleural effusion. Cardiomegaly is unchanged. No definite consol idation to suggest pneumonia. Bibasilar densities are similar to prior exams and favor atelectasis. M ild interstitial thickening is likely chronic. IMPRESSION: 1. No acute cardiopulmonary findings. 2. Bibasilar densities which favor atelectasis. No significant change in appearance of the chest. ACT 112: Negative or not required by law. Electronically signed by: Davis Thompson M.D. 01/28/2024 5:30 PM
[2024-01-28 17:44] LABS: Alanine Aminotransferase 14 U/L (7-52); Albumin Globulin Ratio 1.3 (0.9-2); Albumin Level 4.6 gm/dl (3.4-5.0); Alkaline Phosphatase 76 U/L (34-104); Anion Gap 6 (3-11); Aspartate Aminotransferase 23 U/L (13-39); BUN Creatinine Ratio 21.2 (10-20); Bilirubin,Total 0.4 mg/dl (0.2-1.0); Blood Urea Nitrogen 25 mg/dl (6-23); Calcium 10.4 mg/dl (8.6-10.3); Carbon Dioxide 31 mmol/L (21-32); Chloride 96 mmol/L (98-107); Est GFR (African American) 48.4 ml/min; Est GFR (Non-African American) 41.7 ml/min; Globulin 3.5 gm/dl (2.5-4.0); Glucose 103 mg/dl (70-99(Fasting)); Potassium 3.9 mmol/L (3.5-5.1); Sodium 133 mmol/L (136-145); Total Protein 8.1 gm/dl (6.0-8.3)
--- NOTE | 2024-01-28 18:32 | Emergency Department Note ---
Impression & Plan UTI (urinary tract infection), Acute hyponatremia, High serum calcium ED Provider Note NAME: JEN GALLOWAY AGE: 84 SEX: F : 1940 ARRIVES VIA: Walk-In INFORMANT: Patient ED PROVIDER(S): Jacobo Berger DO CHIEF COMPLAINT: UTI HPI: Patient is an 84-year-old male with a past medical history of heart failure, CKD, paroxysmal A-fib who presents to the ER for UTI. Patient admits to dysuria, urgency, or frequency which has been present since Wednesday. She has some minor achiness in the lower back. She denies any fevers. No nausea or vomiting. No chest pain or shortness of breath. She notes this feels like her previous UTIs. She notes that they took a urine from her on Wednesday and it eventually grew out. She notes there is nothing that she can take as an outpatient due to allergies and she was referred in by her PCP. ADDITIONAL HISTORY OBTAINED: Per HPI Chronic Medical/Social Conditions Affecting Care: Per HPI PAST MEDICAL HISTORY:See Below PAST SURGICAL HISTORY:See Below FAMILY HISTORY:See Below SOCIAL HISTORY:See Below HOME MEDICATIONS:See Below ALLERGIES:See Below VITALS:See Below PHYSICAL EXAMINATION: GENERAL: Sitting up in bed, alert, well appearing, well nourished, no distress, non-toxic EYE EXAM: normal conjunctiva. PERRL and EOM's grossly intact. OROPHARYNX: no exudate, no erythema, lips, buccal mucosa, and tongue normal and mucous membranes are moist NECK: supple, no nuchal rigidity, no adenopathy, non-tender LUNGS: Clear to auscultation. Normal chest wall mechanics HEART: no murmurs, S1 normal and S2 normal ABDOMEN: abdomen soft, non-tender, normo-active bowel sounds, no masses, no rebound or guarding. BACK: Back is symmetrical on inspection and there is no deformity, no midline tenderness, no CVA tenderness. UPPER EXTREMITIES: upper extremities are grossly normal. LOWER EXTREMITIES: No pitting edema. NEURO EXAM: Normal sensorium, cranial nerves II-XII grossly intact, normal speech, no gross weakness of arms, no gross weakness of legs. MEDICAL DECISION MAKING: Patient is an 84-year-old female who presents ER for the above-stated complaint. IV was established medicos obtained. Labs show no significant leukocytosis or anemia. BMP with a hyponatremia at 133. Calcium at 10.4. LFTs bilirubin is unremarkable. UA is suggestive of UTI. External records were reviewed from 01/28/2024 at 1:34 PM in [facility] which shows patient grew out Pseudomonas greater than 100,000 which is susceptible to cefepime, quinolones, Zosyn and tobramycin. Upon review of patient's allergies she is allergic to quinolones and consequently she was given IV cefepime. Updated bedside discussed case with the hospitalist and admitted for further workup. Consults/Care Managements Discussions: Per MDM Triage Nursing notes reviewed. Limited review of prior medical records performed Vital Signs: reviewed and remarkable for HTN Differential diagnosis: Differential diagnosis: Etiologies such as viral syndrome, otitis, pharyngitis, pneumonia, influenza, meningitis, urinary tract infection, sepsis, bacteremia, as well as others were entertained. ER treatment provided: See below Diagnostics interpreted by me include EKG and cardiac monitoring as listed below: -Cardiac Monitoring: An order was placed for continuous cardiac monitoring. The monitor shows a rate of 60 with sinus rhythm. -ECG: none -Laboratory studies:Interpreted by me as stated above in MDM and shown below. Imaging studies: Xrays: As interpreted by me: Portable AP upright 1 view of the chest shows no focal infiltrate CTs show: none Procedures:none Critical Care: None Past Med/Surg History Problem List (Updated 01/28/24 @ 22:23 by Jacobo Berger DO) High serum calcium (Acute) Acute hyponatremia (Acute) UTI (urinary tract infection) (Acute) Complicated UTI (urinary tract infection) Chronic kidney disease, stage 3a Hyponatremia with decreased serum osmolality CKD (chronic kidney disease), stage III Paroxysmal atrial fibrillation Hypothyroidism Hypertension (HFpEF) heart failure with preserved ejection fraction Aortic insufficiency Mitral regurgitation Bilateral pleural effusion On amiodarone therapy Anemia (Acute) Bilateral pneumonia Abrasion of right elbow (Acute) Contusion of right hip (Acute) Elevated blood pressure, situational (Acute) Infection of wound hematoma Medical History Shortness of breath Hypoxic Acute respiratory failure with hypoxia SOB (shortness of breath) Mitral regurgitation Chronic heart failure with preserved ejection fraction Atypical chest pain GERD (gastroesophageal reflux disease) Pneumonia Chest pain Chest pain Diverticulitis Afib Surgical History Hx of cholecystectomy Hx of hysterectomy Family History Mother Stroke Social History Smoking Status: Never smoker Second Hand Exposure: No; Do You Dip or Chew Tobacco: No; Hx Alcohol Use: No Hx Substance Use: No Preferred Language: Romanian Communication Ability: Effective School Standards Coach Required: No Beliefs That Will Affect Care: None marital status: Current Living Situation: Alone Current Living Situation Comment: Has an aide who comes over current occupational status: retired How many Children do You have: 3 Feels Safe at Home: Yes Assistive Devices: Walker Allergies Allergies Allergy/AdvReac Type Severity Reaction Status Date / Time Quinolones Allergy Intermediate HIVES Verified 01/28/24 18:46 dabigatran etexilate Allergy Unknown ON Verified 01/28/24 18:46 [facility] metronidazole AdvReac Intermediate GI SYMPTOMS Verified 01/28/24 18:46 sulfamethoxazole AdvReac Mild GI SYMPTOMS Verified 01/28/24 18:46 trimethoprim AdvReac Mild GI SYMPTOMS Verified 01/28/24 18:46 Home Meds Home Medications Medication Instructions Recorded Confirmed aspirin 325 mg tablet 325 mg PO QAM #100 tabs 01/28/19 01/28/24 levothyroxine 75 mcg capsule 75 mcg PO DAILYBB 03/14/19 01/28/24 diclofenac sodium 1 % topical gel 2 g topical QID PRN Pain 05/27/21 01/28/24 buspirone 5 mg tablet 5 mg PO BID PRN Other 07/18/22 01/28/24 cyanocobalamin (vitamin B-12) 1,000 mcg PO Q OTHER DAY 07/18/22 01/28/24 1,000 mcg tablet multivitamin with minerals 1 tab PO DAILY 07/18/22 01/28/24 (Multiple Vitamin-Minerals tablet) calcium carbonate 600 mg-vitamin 1 tab PO DAILY 11/27/23 01/28/24 D3 10 mcg (400 unit) tablet (Calcium 600 + D(3)) magnesium oxide 500 mg PO DAILY 11/27/23 01/28/24 peg 400-propylene glycol 0.4 %-0.3 1 drp ophthalmic (eye) QID 11/27/23 01/28/24 % eye drops (Systane Ultra) potassium gluconate 600 mg (99 mg) 600 mg PO DAILY 11/27/23 01/28/24 tablet vit C 250 mg-vit E 90 mg-zinc 40 1 tab PO BID 11/27/23 01/28/24 mg-copper 1 [id number] capsule (PreserVision AREDS-2) tobramycin 0.3 % eye drops 1 drp OPB QID 01/28/24 01/28/24 Previous Rx's Medication Instructions Recorded amlodipine 10 mg tablet 10 mg PO QDD #90 tabs 03/21/20 metoprolol succinate 50 mg 50 mg PO BID #180 tabs 02/18/23 tablet,extended release 24 hr amiodarone 200 mg tablet 200 mg PO QDD #90 tabs 05/26/23 furosemide 40 mg tablet 40 mg PO QAM #90 tabs 06/11/23 sodium chloride 1,000 mg soluble 1,000 mg PO BID #180 tabs 07/07/23 tablet Results & Data (ED) Vital Signs Vital Signs - 24 hr 01/28/24 16:07 01/28/24 16:13 01/28/24 16:13 Temperature 36.8 C Temperature Source Temporal Artery Scan Pulse Rate 61 63 Pulse Rate [Apical] Pulse Rhythm Regular Respiratory Rate 18 18 Respiratory Effort / Characteristics Non-Labored Spontaneous Respiratory Depth Normal Blood Pressure 156/82 H Blood Pressure [Left Arm] Blood Pressure Mean 106 Blood Pressure Mean [Left Arm] Blood Pressure Position [Left Arm] Pulse Oximetry 96 98 98 Oxygen Delivery Method Room Air Room Air Room Air Oxygen Flow Rate 0 Sepsis Recent Fever Within 48 Hours No Sepsis New/Unexplained Change in Mental Status No Sepsis Action Taken by Nursing No Action Required 01/28/24 18:42 01/28/24 19:00 Temperature Temperature Source Pulse Rate 60 Pulse Rate [Apical] 62 Pulse Rhythm Respiratory Rate 18 Respiratory Effort / Characteristics Respiratory Depth Blood Pressure Blood Pressure [Left Arm] 147/59 H Blood Pressure Mean Blood Pressure Mean [Left Arm] 88 Blood Pressure Position [Left Arm] Sitting Pulse Oximetry 96 Oxygen Delivery Method Room Air Oxygen Flow Rate Sepsis Recent Fever Within 48 Hours Sepsis New/Unexplained Change in Mental Status Sepsis Action Taken by Nursing Laboratory Data 01/28/24 16:55 01/28/24 16:55 Lab Results 01/28/24 01/28/24 Range/Units 16:50 16:55 WBC 10.63 (4.8-10.8) K/ul RBC 3.82 L (4.20-5.40) M/uL Hgb 12.2 (12.0-16.0) g/dl Hct 36.8 L (37.0-47.0) % MCV 96.3 (80.0-100.0) fL MCH 31.9 (25.0-34.0) pg MCHC 33.2 (32.0-36.0) g/dL RDW Std Deviation 47.3 H (36.4-46.3) fL RDW Coeff of Ursula 13.3 (11.5-14.5) % Plt Count 250 (130-400) K/uL MPV 10.6 (9.4-12.4) fL Immature Gran % (Auto) 0.8 % Neut % (Auto) 59.3 % Lymph % (Auto) 24.9 % [place] % (Auto) 10.9 % Eos % (Auto) 3.4 % Baso % (Auto) 0.7 % Neut # (Auto) 6.31 (1.40-6.50) K/uL Lymph # (Auto) 2.65 (1.20-3.40) K/uL [place] # (Auto) 1.16 H (0.11-0.59) K/uL Eos # (Auto) 0.36 (0.00-0.50) K/uL Baso # (Auto) 0.07 (0.00-0.20) K/uL Immature Gran # (Auto) 0.08 (0.01-0.20) K/uL Sodium 133 L (136-145) mmol/L Potassium 3.9 (3.5-5.1) mmol/L Chloride 96 L (98-107) mmol/L Carbon Dioxide 31 (21-32) mmol/L Anion Gap 6 (3-11) BUN 25 H (6-23) mg/dl Creatinine 1.18 (0.6-1.2) mg/dl Est Cr Clr Drug Dosing Not Reportable Est GFR ( Amer) 48.4 ml/min Est GFR (Non-Af Amer) 41.7 ml/min BUN/Creatinine Ratio 21.2 H (10-20) Glucose 103 H (70-99(Fasting)) mg/dl Calcium 10.4 H (8.6-10.3) mg/dl Total Bilirubin 0.4 (0.2-1.0) mg/dl AST 23 (13-39) U/L ALT 14 (7-52) U/L Alkaline Phosphatase 76 (34-104) U/L Total Protein 8.1 (6.0-8.3) gm/dl Albumin 4.6 (3.4-5.0) gm/dl Globulin 3.5 (2.5-4.0) gm/dl Albumin/Globulin Ratio 1.3 (0.9-2) Urine Color Yellow Urine Appearance Cloudy A (Clear) Urine pH 8.0 H (4.5-7.5) Ur Specific [place] 1.014 (1.000-1.030) Urine Protein Negative (Negative) Urine Glucose (UA) Negative (Negative) Urine Ketones Negative (Negative) Urine Blood Negative (Negative) Urine Nitrite Negative (Negative) Urine Bilirubin Negative (Negative) Urine Urobilinogen Negative (Negative) Ur Leukocyte Esterase 3+ H (Negative) Urine WBC (Auto) >50 H (0-5) /hpf Urine RBC (Auto) 3-5 H (0-2) /hpf U Hyaline Cast (Auto) 3-5 H (0-2) /lpf U Epithel Cells (Auto) 0-2 (0-2) /hpf Urine Bacteria (Auto) None Seen (None Seen) Administered Medications Discontinued Medications Cefepime HCl (Maxipime) 2,000 mg in 20 mls @ 5 mls/min IV NOW STA; Protocol Stop: 01/28/24 18:36 Last Admin: 01/28/24 18:41 Dose: 5 mls/min Documented By: OLIVERIO Potassium Chloride (Potassium Chloride Crtab 20 Meq Tabcr) 20 meq PO NOW STA Stop: 01/28/24 20:01 Last Admin: 01/28/24 20:07 Dose: 20 meq Documented By: PREMA Imaging Data Radiologist's Impression: Chest X-Ray 01/28/24 16:13 XR chest 1V not portable CLINICAL HISTORY: Sepsis COMPARISON STUDY: Chest CT May 05, 2021. Chest radiograph November 27, 2023. FINDINGS: There is no pneumothorax or pleural effusion. Cardiomegaly is unchanged. No definite consolidation to suggest pneumonia. Bibasilar densities are similar to prior exams and favor atelectasis. Mild interstitial thickening is likely chronic. IMPRESSION: 1. No acute cardiopulmonary findings. 2. Bibasilar densities which favor atelectasis. No significant change in appearance of the chest. ACT 112: Negative or not required by law. Electronically signed by: Davis Thompson M.D. 01/28/2024 5:30 PM Discharge Plan Visit Data Chief Complaint: Infection Stated Complaint: POSSIBLE INFECTION ED Provider: Jacobo Berger Discharge Problem: UTI (urinary tract infection), Acute hyponatremia, High serum calcium Patient Disposition: Admitted As Inpatient Discharge Instructions Interventions: ED Discharge Assessment Last Done: 01/28/24 20:36 Discharge Problem: UTI (urinary tract infection) Qualifiers: Urinary tract infection type: site unspecified Hematuria presence: without hematuria Qualified Code(s): N39.0 - Urinary tract infection, site not specified
[2024-01-28] MEDS: CEFEPIME 2,000 MG/20 ML VIAL IV STA (18:41)
--- NOTE | 2024-01-28 19:17 | History & Physical Report ---
Date of Service January 28, 2024 Assessment & Plan (1) Complicated UTI (urinary tract infection): (2) Paroxysmal atrial fibrillation: (3) CKD (chronic kidney disease), stage III: (4) (HFpEF) heart failure with preserved ejection fraction: (5) Hypertension: (6) Hypothyroidism: Plan This is an 84 yr old F who has a significant PMH of Atrial fibrillation, HTN, HLD, CKD-3, Chronic HFpEF, macular degeneration, SIADH, hypothyroidism, GERD who presents to ED at the referral [facility] [place] due to UTI unable to treat at home. Outpt urine culture grew > 100k Pseudomonas, pt with allergy to quinolones, only sensitive to cefepime and zosyn Complicated UTI admit to med/surg Initiate Cefepime 2g q8h PT/OT consulted CM will need to be involved to determine dispo for IV antibiotics Chronic HFpEF HTN HLD chronic, stable, [place] [facility], last echo 07/02 EF 55-60%, moderate to severe MR, moderate AI, est PASP >44 daily weights, strict I and O continue amlodipine, metoprolol hold lasix for now in setting of sodium 133, re assess and resume as able SIADH: on NaCL tabs, follow sodium levels, hold lasix this evening and re eval in a.m. PAF: chronic, stable, continue amiodarone, not on anticoagulation due to pt preference, on ASA instead Hypothyroidism: chronic, stable, continue meds DVT ppx: SQ Heparin DNR/DNI PCP:[facility] Dispo: admit to med/surg for IV antibiotics, follows [facility] at home Pt was seen and examined in collaboration with Dr. Iniguez, please see addendum A total of 60 minutes was spent coordinating, documenting, and providing care for this patient excluding time spent in the performance of separately billed services. This included personally viewing all current laboratories and imaging studies, medication reconciliation, outpatient chart review, and discussion with specialists. History of Present Illness Chief Complaint: Abnormal urinalysis, presenting for IV antibiotics. Primary Care Provider: Kodi Lizarraga MD This is an 84 yr old F who has a significant PMH of Atrial fibrillation, HTN, HLD, CKD-3, Chronic HFpEF, macular degeneration, SIADH, hypothyroidism, GERD who presents to ED at the referral [facility] at home due to UTI unable to treat at home. Pt had an outpt urine culture growing pseudomonas. She has a quinolone allergy and therefore was referred to ED for IV antibiotics. Oupt records were [facility]. Sx started 2 days ago she reports suprapubic and low back pain along with dysuria. She called into her [facility] who ordered a UA. She denies any f/c/s, chest pain, sob, n/v/d, abd pain. Her appetite has been good. She has been following and eye dr for infection in her eyes for which she is using tobramycin eye gtts. She also has hx of SIADH and follows a 40oz fluid restriction daily. Allergies Allergy/AdvReac Type Severity Reaction Status Date / Time Quinolones Allergy Intermediate HIVES Verified 01/28/24 18:46 dabigatran etexilate Allergy Unknown ON Verified 01/28/24 18:46 Viragen MED LIST metronidazole AdvReac Intermediate GI SYMPTOMS Verified 01/28/24 18:46 sulfamethoxazole AdvReac Mild GI SYMPTOMS Verified 01/28/24 18:46 trimethoprim AdvReac Mild GI SYMPTOMS Verified 01/28/24 18:46 Home Medications Medication Instructions Recorded Confirmed Type aspirin 325 mg tablet 325 mg PO QAM #100 tabs 01/28/19 01/28/24 History levothyroxine 75 mcg capsule 75 mcg PO DAILYBB 03/14/19 01/28/24 History amlodipine 10 mg tablet 10 mg PO QDD #90 tabs 03/21/20 01/28/24 Rx diclofenac sodium 1 % topical gel 2 g topical QID PRN Pain 05/27/21 01/28/24 History buspirone 5 mg tablet 5 mg PO BID PRN Other 07/18/22 01/28/24 History cyanocobalamin (vitamin B-12) 1,000 mcg PO Q OTHER DAY 07/18/22 01/28/24 History 1,000 mcg tablet multivitamin with minerals 1 tab PO DAILY 07/18/22 01/28/24 History (Multiple Vitamin-Minerals tablet) metoprolol succinate 50 mg 50 mg PO BID #180 tabs 02/18/23 01/28/24 Rx tablet,extended release 24 hr amiodarone 200 mg tablet 200 mg PO QDD #90 tabs 05/26/23 01/28/24 Rx furosemide 40 mg tablet 40 mg PO QAM #90 tabs 06/11/23 01/28/24 Rx sodium chloride 1,000 mg soluble 1,000 mg PO BID #180 tabs 07/07/23 01/28/24 Rx tablet calcium carbonate 600 mg-vitamin 1 tab PO DAILY 11/27/23 01/28/24 History D3 10 mcg (400 unit) tablet (Calcium 600 + D(3)) magnesium oxide 500 mg PO DAILY 11/27/23 01/28/24 History peg 400-propylene glycol 0.4 %-0.3 1 drp ophthalmic (eye) QID 11/27/23 01/28/24 History % eye drops (Systane Ultra) potassium gluconate 600 mg (99 mg) 600 mg PO DAILY 11/27/23 01/28/24 History tablet vit C 250 mg-vit E 90 mg-zinc 40 1 tab PO BID 11/27/23 01/28/24 History mg-copper 1 [id number] capsule (PreserVision AREDS-2) tobramycin 0.3 % eye drops 1 drp OPB QID 01/28/24 01/28/24 History Past Med/Surg History Problem List (Updated 01/28/24 @ 22:23 by Jacobo Berger DO) High serum calcium (Acute) Acute hyponatremia (Acute) UTI (urinary tract infection) (Acute) Complicated UTI (urinary tract infection) Chronic kidney disease, stage 3a Hyponatremia with decreased serum osmolality CKD (chronic kidney disease), stage III Paroxysmal atrial fibrillation Hypothyroidism Hypertension (HFpEF) heart failure with preserved ejection fraction Aortic insufficiency Mitral regurgitation Bilateral pleural effusion On amiodarone therapy Anemia (Acute) Bilateral pneumonia Abrasion of right elbow (Acute) Contusion of right hip (Acute) Elevated blood pressure, situational (Acute) Infection of wound hematoma Medical History Shortness of breath Hypoxic Acute respiratory failure with hypoxia SOB (shortness of breath) Mitral regurgitation Chronic heart failure with preserved ejection fraction Atypical chest pain GERD (gastroesophageal reflux disease) Pneumonia Chest pain Chest pain Diverticulitis Afib Surgical History Hx of cholecystectomy Hx of hysterectomy Family History Mother Stroke Social History Smoking Status: Never smoker Second Hand Exposure: No; Do You Dip or Chew Tobacco: No; Hx Alcohol Use: No Hx Substance Use: No Preferred Language: Burmese Communication Ability: Effective [place] Applier Required: No Beliefs That Will Affect Care: None marital status: Current Living Situation: Alone Current Living Situation Comment: Has an aide who comes over current occupational status: retired How many Children do You have: 3 Feels Safe at Home: Yes Assistive Devices: Walker Review of Systems Review of Systems: All systems reviewed & are unremarkable except as noted in HPI & below Physical Exam Physical Exam: constitutional: WD/WN, vitals as above, NAD, sitting up in bed, pleasant, conversing easily Head: Normocephalic, Atraumatic Eyes: PERRL, conjunctivae normal, anicteric sclerae ENMT: external ear and nose normal, oropharynx normal Neck: trachea midline, no thyromegaly normal visual inspection Respiratory: normal respiratory effort, lungs clear to auscultation, no wheeze, rales, rhonchi. Normal insp/exp effort, no accessory muscle use Cardiovascular: RRR, no murmur, no edema Vessels: no JVD or carotid bruit Chest: normal inspection of chest Abdomen: normal bowel sounds, soft, nontender, no hepatosplenomegaly Musculoskeletal: no cyanosis or clubbing, extremities motor strength 5/5 Skin: no rashes, warm and dry normal turgor Neurologic: PERRL, EOMI, accommodation nl, no face palsy, no dysarthria CN's II-XI intact bilaterally and moves all extremities Psychiatric: A+Ox3, euthymic affect Lymphatic: no cervical or axillary lymphadenopathy : deferred Results & Data Results & Data Vital Signs (Past 12 Hours) Vital Signs Temp Pulse Pulse Resp BP BP Pulse Ox 01/28/24 18:42 62 18 147/59 H 96 01/28/24 16:07 36.8 C 61 18 156/82 H 96 O2 Del Method 01/28/24 18:42 Room Air 01/28/24 16:07 Room Air Laboratory Results I have independently reviewed and interpreted patient's admitting labs including CBC, CMP, UA Diagnostic Findings Chest X-Ray 01/28/24 16:13 XR chest 1V not portable CLINICAL HISTORY: Sepsis COMPARISON STUDY: Chest CT May 05, 2021. Chest radiograph November 27, 2023. FINDINGS: There is no pneumothorax or pleural effusion. Cardiomegaly is unchanged. No definite consolidation to suggest pneumonia. Bibasilar densities are similar to prior exams and favor atelectasis. Mild interstitial thickening i s likely chronic. IMPRESSION: 1. No acute cardiopulmonary findings. 2. Bibasilar densities which favor atelectasis. No significant change in appearance of the chest. ACT 112: Negative or not required by law. Electronically signed by: Davis Thompson M.D. 01/28/2024 5:30 PM Medications Administered Medication List Discontinued Medications Cefepime HCl (Maxipime) 2,000 mg in 20 mls @ 5 mls/min IV NOW STA; Protocol Stop: 01/28/24 18:36 Last Admin: 01/28/24 18:41 Dose: 5 mls/min Documented By: [facility] COVID-19 Results Results COVID-19 Adm Lab Results: RBC 3.82 M/uL (4.20-5.40) L 01/28/24 WBC 10.63 K/ul (4.8-10.8) 01/28/24 Hgb 12.2 g/dl (12.0-16.0) 01/28/24 Hct 36.8 % (37.0-47.0) L 01/28/24 Plt Count 250 K/uL (130-400) 01/28/24 Neutrophils (%) (Auto) 59.3 % 01/28/24 Lymphocytes (%) (Auto) 24.9 % 01/28/24 Eosinophils # (Auto) 0.36 K/uL (0.00-0.50) 01/28/24 Immature Granulocyte % (Auto) 0.8 % 01/28/24 Neutrophils # (Auto) 6.31 K/uL (1.40-6.50) 01/28/24 Lymphocytes # (Auto) 2.65 K/uL (1.20-3.40) 01/28/24 Eosinophils # (Auto) 0.36 K/uL (0.00-0.50) 01/28/24 Basophils # (Auto) 0.07 K/uL (0.00-0.20) 01/28/24 Immature Granulocyte # (Auto) 0.08 K/uL (0.01-0.20) 4 Na 133 mmol/L (136-145) L 01/28/24 K 3.9 mmol/L (3.5-5.1) 01/28/24 Cl 96 mmol/L (98-107) L 01/28/24 CO2 31 mmol/L (21-32) 01/28/24 Anion Gap 6 (3-11) 01/28/24 BUN 25 mg/dl (6-23) H 01/28/24 Creatinine 1.18 mg/dl (0.6-1.2) 01/28/24 BUN/Creatinine Ratio 21.2 (10-20) H 01/28/24 Glucose Level 103 mg/dl (70-99(Fasting)) H 01/28/24 Ca 10.4 mg/dl (8.6-10.3) H 01/28/24 Total Bilirubin 0.4 mg/dl (0.2-1.0) 01/28/24 AST/SGOT 23 U/L (13-39) 01/28/24 ALT/SGPT 14 U/L (7-52) 01/28/24 Alkaline Phosphatase 76 U/L (34-104) 01/28/24 Total Protein 8.1 gm/dl (6.0-8.3) 01/28/24 Albumin 4.6 gm/dl (3.4-5.0) 01/28/24 Globulin 3.5 gm/dl (2.5-4.0) 01/28/24 Albumin/Globulin Ratio 1.3 (0.9-2) 01/28/24 Chest X-Ray 01/28/24 Code Status & VTE Plan Code Status DNR/DNI Supervising Physician Co-Signing Physician Notes Pt was seen and examined by myself, Maryse Iniguez MD on the day of service. Care was coordinated with Shari Mccallum PA-C. 84-year-old female presenting from the outpatient setting for concerning urine culture growing Pseudomonas, But patient with allergy to fluoroquinolones. patient states she is still having some dysuria on exam patient alert, oriented, no acute distress. Mild hearing loss. Abdomen soft, slightly tender diffusely will repeat urine culture, patient started on IV cefepime PT OT evals continue to monitor Otherwise as above. I spent a total [id number] coordinating, documenting, and providing care for this patient excluding time spent in the performance of separately billed services
[2024-01-28] MEDS: POTASSIUM CHLORIDE CRTAB 20 MEQ TABCR PO STA (20:07)
[2024-01-28] MEDS ORDERED: ONDANSETRON INJ 2 MG/ML 2 ML VIAL IV PRN (21:01)
[2024-01-28] MEDS ORDERED: NON-FORMULARY MEDICATION (Vit C,E-Zn-Coppr-Lutein-Zeaxan [Preservision Areds-2] 250-90-40- PO SCH (21:01)
[2024-01-28] MEDS ORDERED: busPIRone 5 MG TAB PO PRN (21:01)
[2024-01-28] MEDS: amLODIPine BESYLATE 5 MG TAB PO SCH (22:40)
[2024-01-28] MEDS: ARTIFICIAL TEARS OP SCH (22:41)
[2024-01-28] MEDS: SODIUM CHLORIDE 1 GM TABLET PO SCH (22:42)
[2024-01-28] MEDS: AMIODARONE 200 MG TAB PO SCH (22:42)
[2024-01-28] MEDS: METOPROLOL SUCC 50MG EXT REL TAB PO SCH (22:42)
[2024-01-28] MEDS: HEPARIN SOD 5,000 UNIT/0.5 ML VIAL SQ SCH (22:43)
[2024-01-28] MEDS: TOBRAMYCIN SULF 0.3% OP SOLN 5 ML BTL OPB SCH (22:43)
[2024-01-29] MEDS: LEVOTHYROXINE SODIUM 75 MCG TABLET PO SCH (06:11)
[2024-01-29] MEDS: CEFEPIME 2,000 MG in SYRINGE 0 ML IV SCH (06:12)
[2024-01-29 07:51] LABS: Basophils # (auto) 0.07 K/uL (0.00-0.20); Basophils % (auto) 0.8 %; Eosinophils # (auto) 0.28 K/uL (0.00-0.50); Eosinophils % (auto) 3.1 %; Hematocrit (blood only) 34.1 % (37.0-47.0); Hemoglobin 11.4 g/dl (12.0-16.0); Immature Granulocytes # (auto) 0.05 K/uL (0.01-0.20); Immature Granulocytes % (auto) 0.6 %; Lymphocytes # (auto) 1.75 K/uL (1.20-3.40); Lymphocytes % (auto) 19.3 %; Mean Corpuscular Hemoglobin 32.1 pg (25.0-34.0); Mean Corpuscular Hgb Conc 33.4 g/dL (32.0-36.0); Mean Corpuscular Volume 96.1 fL (80.0-100.0); Mean Platelet Volume 10.8 fL (9.4-12.4); Monocytes # (auto) 0.98 K/uL (0.11-0.59); Monocytes % (auto) 10.8 %; Neutrophils # (auto) 5.95 K/uL (1.40-6.50); Neutrophils % (auto) 65.4 %; Platelet Count 208 K/uL (130-400); RDW Coefficient of Variation 13.2 % (11.5-14.5); RDW Standard Deviation 47.4 fL (36.4-46.3); Red Blood Count 3.55 M/uL (4.20-5.40); White Blood Count 9.08 K/ul (4.8-10.8)
[2024-01-29 08:05] LABS: Albumin Globulin Ratio 1.1 (0.9-2); Albumin Level 4.2 gm/dl (3.4-5.0); Bilirubin,Total 0.6 mg/dl (0.2-1.0); Calcium 9.7 mg/dl (8.6-10.3); Creatinine Clr Calc Pharmacy 31.5 ml/min; Est GFR (African American) 52.6 ml/min; Est GFR (Non-African American) 45.4 ml/min; Globulin 3.7 gm/dl (2.5-4.0); Magnesium 2.5 mg/dl (1.7-2.4); Potassium 4.4 mmol/L (3.5-5.1); Total Protein 7.9 gm/dl (6.0-8.3)
[2024-01-29] MEDS: ASPIRIN 325 MG ECTAB PO SCH (08:50)
[2024-01-29] MEDS: CYANOCOBALAMIN (B-12) 500 MCG TABLET PO SCH (08:51)
[2024-01-29] MEDS: MULTIVITAMIN TAB PO SCH (08:51)
[2024-01-29] MEDS: POTASSIUM CHLORIDE CRTAB 20 MEQ TABCR PO SCH (08:52)
[2024-01-29] MEDS: LIDOCAINE 5% 1 PATCH TD SCH (13:22)
[2024-01-29] MEDS: ADVANCED PROBIOTIC 625 MG CAPSULE PO SCH (13:22)
--- NOTE | 2024-01-29 15:46 | Hospitalist Progress Note ---
Date of Service January 29, 2024 Assessment & Plan (1) Complicated UTI (urinary tract infection): (2) Paroxysmal atrial fibrillation: (3) CKD (chronic kidney disease), stage III: (4) (HFpEF) heart failure with preserved ejection fraction: (5) Hypertension: (6) Hypothyroidism: Plan This is an 84 yr old F who has a significant PMH of Atrial fibrillation, HTN, HLD, CKD-3, Chronic HFpEF, macular degeneration, SIADH, hypothyroidism, GERD who presents to ED at the referral [facility] at home due to UTI unable to treat at home. Outpt urine culture grew > 100k Pseudomonas, pt with allergy to quinolones, only sensitive to cefepime and zosyn Complicated UTI admit to med/surg Initiate Cefepime 2g q8h PT/OT consulted CM will need to be involved to determine dispo for IV antibiotics 01/28 stable overall Cefepime 2g q8h will need 5 day course total patient prefers to receive IV abx at home Chronic HFpEF HTN HLD chronic, stable, follows [facility] [place], last echo 07/02 EF 55-60%, moderate to severe MR, moderate AI, est PASP >44 daily weights, strict I and O continue amlodipine, metoprolol hold lasix for now in setting of sodium 133, re assess and resume as able 01/28 euvolemic resume Lasix tomorrow SIADH: on NaCL tabs Na 138 PAF: chronic, stable, continue amiodarone, not on anticoagulation due to pt preference, on ASA instead Hypothyroidism: chronic, stable, continue meds DVT ppx: SQ Heparin DNR/DNI PCP:[facility]ham Dispo: prefers to complete 5 day course of IV abx at home Admission and Anticipated Discharge Date Admission Date: January 28, 2024 Subjective Follow-up for follow-up for Pseudomonas UTI, etc. Seen resting in bed side chair, comfortable, not distressed States that she feels fine overall Denies abdominal pain, nausea vomiting, fevers or chills, problems with urination Reports some right upper arm pain, no shoulder pain, denies history of trauma No other new symptom Review of Systems Review of Systems: all noted and negative except for above Physical Exam Physical Exam: General- oriented x 3, not in distress, speaks in sentences with no effort or accessory muscle use Eyes- anicteric Neck- no JVD Lungs- clear breath sounds bilaterally, no rales/wheezes Heart- normal rate, regular rhythm; no murmurs Abdomen- normal bowel sounds, nondistended, soft, nontender Extremities- no pretibial edema, no calf tenderness RUE: upper arm- mild tenderness, no erythema/warmth/tenderness Neuro- alert, oriented x 3; no gross focal neurologic deficits Skin- warm & dry Results & Data Results & Data Vital Signs (Past 12 Hours) Vital Signs Temp Pulse Resp BP Pulse Ox O2 Del Method 01/29/24 15:01 36.6 C 51 L 18 144/73 H 97 Room Air 01/29/24 08:16 37.0 C 55 L 18 147/66 H 96 Room Air all noted and reviewed including below
[2024-01-30] MEDS: FUROSEMIDE 40 MG TAB PO SCH (08:25)
--- NOTE | 2024-01-30 14:39 | Hospitalist Progress Note ---
Date of Service January 30, 2024 Assessment & Plan (1) Complicated UTI (urinary tract infection): (2) Paroxysmal atrial fibrillation: (3) CKD (chronic kidney disease), stage III: (4) (HFpEF) heart failure with preserved ejection fraction: (5) Hypertension: (6) Hypothyroidism: Plan This is an 84 yr old F who has a significant PMH of Atrial fibrillation, HTN, HLD, CKD-3, Chronic HFpEF, macular degeneration, SIADH, hypothyroidism, GERD who presents to ED at the referral [facility] at home due to UTI unable to treat at home. Outpt urine culture grew > 100k Pseudomonas, pt with allergy to quinolones, only sensitive to cefepime and zosyn Complicated UTI admit to med/surg Initiate Cefepime 2g q8h PT/OT consulted CM will need to be involved to determine dispo for IV antibiotics 01/28 stable overall Cefepime 2g q8h will need 5 day course total patient prefers to receive IV abx at home 01/29 Remains stable Continue cefepime 2 g IV every 8 hours Patient will need to complete total of 5 days of IV cefepime ecommerce manager on board for home health service Chronic HFpEF HTN HLD chronic, stable, [place] [facility], last echo 07/02 EF 55-60%, moderate to severe MR, moderate AI, est PASP >44 daily weights, strict I and O continue amlodipine, metoprolol hold lasix for now in setting of sodium 133, re assess and resume as able 01/28 euvolemic resume Lasix tomorrow 01/29 resume Lasix SIADH: on NaCL tabs Na 138 PAF: chronic, stable, continue amiodarone, not on anticoagulation due to pt preference, on ASA instead Hypothyroidism: chronic, stable, continue meds DVT ppx: SQ Heparin DNR/DNI PCP:[facility] Dispo: prefers to complete 5 day course of IV abx at home rn case manager hospice on board Admission and Anticipated Discharge Date Admission Date: January 28, 2024 Subjective Will follow-up for Pseudomonas UTI, etc. Seen resting in bedside chair, comfortable, not in distress States she feels fine overall No urinary symptoms Abdominal pain, nausea vomiting, fevers or chills Eager to be discharged to home No other new symptoms Review of Systems Review of Systems: all noted and negative except for above Physical Exam Physical Exam: General- oriented x 3, not in distress, speaks in sentences with no effort or accessory muscle use Eyes- anicteric Neck- no JVD Lungs- clear breath sounds bilaterally, no rales/wheezes Heart- normal rate, regular rhythm; no murmurs Abdomen- normal bowel sounds, nondistended, soft, nontender Extremities- no pretibial edema, no calf tenderness Neuro- alert, oriented x 3; no gross focal neurologic deficits Skin- warm & dry Results & Data Results & Data Vital Signs (Past 12 Hours) Vital Signs Temp Pulse Resp BP Pulse Ox O2 Del Method 01/30/24 07:48 36.6 C 58 L 20 126/75 97 Room Air all noted and reviewed including below
[2024-01-30] MEDS: ACETAMINOPHEN 325 MG TAB PO PRN (22:00)
--- NOTE | 2024-01-31 14:47 | Hospitalist Progress Note ---
Date of Service January 31, 2024 Assessment & Plan (1) Complicated UTI (urinary tract infection): (2) Paroxysmal atrial fibrillation: (3) CKD (chronic kidney disease), stage III: (4) (HFpEF) heart failure with preserved ejection fraction: (5) Hypertension: (6) Hypothyroidism: Plan This is an 84 yr old F who has a significant PMH of Atrial fibrillation, HTN, HLD, CKD-3, Chronic HFpEF, macular degeneration, SIADH, hypothyroidism, GERD who presents to ED at the referral [facility] at home due to UTI unable to treat at home. Outpt urine culture grew > 100k Pseudomonas, pt with allergy to quinolones, only sensitive to cefepime and zosyn Complicated UTI admit to med/surg Initiate Cefepime 2g q8h PT/OT consulted CM will need to be involved to determine dispo for IV antibiotics 01/28 stable overall Cefepime 2g q8h will need 5 day course total patient prefers to receive IV abx at home 01/29 Remains stable Continue cefepime 2 g IV every 8 hours Patient will need to complete total of 5 days of IV cefepime bi manager on board for home health service 01/30 Continue cefepime 2 g IV every 8 hours Discussed with casework supervisor, patient to complete IV cefepime here in the hospital as she has no family member to assist with IV antibiotic administration at home Completion of IV cefepime 5-day course will be on Wednesday, February 02, 2024 Chronic HFpEF HTN HLD chronic, stable, follows [facility] [place], last echo 07/02 EF 55-60%, moderate to severe MR, moderate AI, est PASP >44 daily weights, strict I and O continue amlodipine, metoprolol hold lasix for now in setting of sodium 133, re assess and resume as able 01/28 euvolemic resume Lasix tomorrow 01/29 resume Lasix 01/30 Euvolemic Continue usual Lasix SIADH: on NaCL tabs Na 138 PAF: chronic, stable, continue amiodarone, not on anticoagulation due to pt preference, on ASA instead Hypothyroidism: chronic, stable, continue meds DVT ppx: SQ Heparin DNR/DNI PCP:[facility] Dispo: Discharge to home on Wednesday once IV cefepime course has been completed Admission and Anticipated Discharge Date Admission Date: January 28, 2024 Subjective Seen resting in bedside chair, comfortable, not in distress States that she continues to feel fine overall Denies urinary symptoms, abdominal pain, fevers or chills Very eager to be discharged home No other new symptoms Review of Systems Review of Systems: all noted and negative except for above Physical Exam Physical Exam: General- oriented x 3, not in distress, speaks in sentences with no effort or accessory muscle use Eyes- anicteric Neck- no JVD Lungs- clear breath sounds bilaterally Heart- normal rate, regular rhythm; no murmurs Abdomen- normal bowel sounds, nondistended, soft, nontender No CVA tenderness Extremities- no pretibial edema, no calf tenderness Neuro- alert, oriented x 3; no gross focal neurologic deficits Skin- warm & dry Results & Data Results & Data Vital Signs (Past 12 Hours) Vital Signs Temp Pulse Resp BP Pulse Ox O2 Del Method 01/31/24 07:30 36.4 C L 60 16 151/71 H 96 Room Air all noted and reviewed including below
[2024-01-31] MEDS: POLYETHYLENE (MIRALAX) 17 GM PACK PO PRN (14:54)
[2024-01-31] MEDS: DICLOFENAC SOD 1% GEL 100 GM TUBE EXT PRN (20:11)
[2024-02-01 09:49] LABS: BUN Creatinine Ratio 19.8 (10-20); Calcium 9.6 mg/dl (8.6-10.3); Creatinine Clr Calc Pharmacy 27.5 ml/min; Est GFR (African American) 44.7 ml/min; Est GFR (Non-African American) 38.5 ml/min; Potassium 4.2 mmol/L (3.5-5.1)
--- NOTE | 2024-02-01 16:04 | Hospitalist Progress Note ---
Date of Service February 01, 2024 Assessment & Plan (1) Complicated UTI (urinary tract infection): (2) Paroxysmal atrial fibrillation: (3) CKD (chronic kidney disease), stage III: (4) (HFpEF) heart failure with preserved ejection fraction: (5) Hypertension: (6) Hypothyroidism: Plan This is an 84 yr old F who has a significant PMH of Atrial fibrillation, HTN, HLD, CKD-3, Chronic HFpEF, macular degeneration, SIADH, hypothyroidism, GERD who presents to ED at the referral [facility] at home due to UTI unable to treat at home. Outpt urine culture grew > 100k Pseudomonas, pt with allergy to quinolones, only sensitive to cefepime and zosyn Complicated UTI Continue cefepime 2 g IV every 8 hours day / Completion of IV cefepime 5-day course will be on Wednesday, February 02, 2024 Probiotics x 1 month Chronic HFpEF HTN HLD chronic, stable, [place] [facility] [place], last echo 07/02 EF 55-60%, moderate to severe MR, moderate AI, est PASP >44 Euvolemic Continue usual Lasix SIADH: on NaCL tabs Na 138 PAF: chronic, stable, continue amiodarone, not on anticoagulation due to pt preference, on ASA instead Hypothyroidism: chronic, stable, continue meds DVT ppx: SQ Heparin DNR/DNI PCP:[facility] Dispo: Discharge to home on Wednesday once IV cefepime course has been completed Admission and Anticipated Discharge Date Admission Date: January 28, 2024 Subjective Follow-up for Pseudomonas UTI, etc. Seen resting in bed, comfortable, not in distress States she feels better overall Denies urinary symptoms, fevers or chills No other new symptoms Review of Systems Review of Systems: all noted and negative except for above Physical Exam Physical Exam: General- oriented x 3, not in distress, speaks in sentences with no effort or accessory muscle use Eyes- anicteric Neck- no JVD Lungs- clear breath sounds bilaterally, no crackles Heart- normal rate, regular rhythm; no murmurs Abdomen- normal bowel sounds, nondistended, soft, no tenderness Extremities- no pretibial edema, no calf tenderness Neuro- alert, oriented x 3; no gross focal neurologic deficits Skin- warm & dry Results & Data Results & Data Vital Signs (Past 12 Hours) Vital Signs Temp Pulse Resp BP Pulse Ox O2 Del Method 09/24/24 07:14 36.7 C 60 16 117/69 96 Room Air all noted and reviewed including below
[2024-02-01] MEDS: CEFEPIME 1,000 MG in SYRINGE 0 ML IV SCH (17:07)
[2024-02-02 07:49] VITALS: BP 153/80; PULSE 58; RESP 16; TEMP 97.9; O2SAT 98
--- NOTE | 2024-02-02 14:19 | Discharge Summary ---
Date of Service February 02, 2024 Admission HPI Per Admitting Provider This is an 84 yr old F who has a significant PMH of Atrial fibrillation, HTN, HLD, CKD-3, Chronic HFpEF, macular degeneration, SIADH, hypothyroidism, GERD who presents to ED at the referral [facility] at home due to UTI unable to treat at home. Pt had an outpt urine culture growing pseudomonas. She has a quinolone allergy and therefore was referred to ED for IV antibiotics. Oupt records were reviewed. Sx started 2 days ago she reports suprapubic and low back pain along with dysuria. She called into her [facility] who ordered a UA. She denies any f/c/s, chest pain, sob, n/v/d, abd pain. Her appetite has been good. She has been following and eye dr for infection in her eyes for which she is using tobramycin eye gtts. She also has hx of SIADH and follows a 40oz fluid restriction daily. Admission Exam Per Admitting Provider onstitutional: WD/WN, vitals as above, NAD, sitting up in bed, pleasant, conversing easily Head: Normocephalic, Atraumatic Eyes: PERRL, conjunctivae normal, anicteric sclerae ENMT: external ear and nose normal, oropharynx normal Neck: trachea midline, no thyromegaly normal visual inspection Respiratory: normal respiratory effort, lungs clear to auscultation, no wheeze, rales, rhonchi. Normal insp/exp effort, no accessory muscle use Cardiovascular: RRR, no murmur, no edema Vessels: no JVD or carotid bruit Chest: normal inspection of chest Abdomen: normal bowel sounds, soft, nontender, no hepatosplenomegaly Musculoskeletal: no cyanosis or clubbing, extremities motor strength 5/5 Skin: no rashes, warm and dry normal turgor Neurologic: PERRL, EOMI, accommodation nl, no face palsy, no dysarthria CN's II-XI intact bilaterally and moves all extremities Psychiatric: A+Ox3, euthymic affect Lymphatic: no cervical or axillary lymphadenopathy : deferred Principal Diagnosis Pseudomonas Urinary tract infection Discharge Exam Constitutional + well hydrated; no acute distress Elderly woman Eyes PERRL, conjunctivae normal, anicteric sclerae ENMT +hearing deficits Respiratory normal respiratory effort, lungs clear to auscultation Cardiovascular Rate/Rhythm: + irregularly irregular Gastrointestinal (Abdomen) normal bowel sounds, soft, nontender, no hepatosplenomegaly Musculoskeletal No pedal edema Neurologic PERRL, EOMI, accommodation nl, no face palsy, no dysarthria Psychiatric A+Ox3, euthymic affect Discharge Data Allergies Allergy/AdvReac Type Severity Reaction Status Date / Time Quinolones Allergy Intermediate HIVES Verified 01/28/24 18:46 dabigatran etexilate Allergy Unknown ON Verified 01/28/24 18:46 [facility] MED LIST metronidazole AdvReac Intermediate GI SYMPTOMS Verified 01/28/24 18:46 sulfamethoxazole AdvReac Mild GI SYMPTOMS Verified 01/28/24 18:46 trimethoprim AdvReac Mild GI SYMPTOMS Verified 01/28/24 18:46 Consultations 01/28/24 18:32 ED Decision to Admit Stat Hospital Course (1) Complicated UTI (urinary tract infection): (2) Paroxysmal atrial fibrillation: (3) CKD (chronic kidney disease), stage III: (4) (HFpEF) heart failure with preserved ejection fraction: (5) Hypertension: (6) Hypothyroidism: Plan 84 yr old F who has a significant PMH of Atrial fibrillation, HTN, HLD, CKD-3, Chronic HFpEF, macular degeneration, SIADH, hypothyroidism, GERD who presents to ED at the referral [facility] at home due to UTI unable to treat at home due to allergy history Outpt urine culture grew > 100k Pseudomonas, pt with allergy to quinolones, only sensitive to cefepime and zosyn Pseudomonas UTI Patient was treated with IV cefepime 2 g IV every 8 hours for 5 days Discharged home after completion of IV antibiotics Chronic HFpEF HTN HLD Chronic, stable, Follows [facility] [place] Last echo 07/02 EF 55-60%, moderate to severe MR, moderate AI, est PASP >44 Continue usual Lasix PAF: Chronic, stable, Continue amiodarone, Not on anticoagulation due to pt preference, on ASA instead Hypothyroidism: chronic, stable, continue meds Total Time Total Time Spent Total Time Spent (In Minutes): 35 Total Time Includes: Examination of the Patient, Discharge Planning and Medication Reconciliation Discharge Plan Discharge Items Patient Disposition: Home - Self-Care Reason For Visit: UTI Discharge Diagnosis: Pseudomonas Urinary tract infection Activity: Resume your previous activity Non-emergency contact: Primary Care Provider Call non-emergency contact if: you have any medication questions Follow-up/Referrals: Kodi Lizarraga MD [Primary Care Provider] - (Date & Time 02/08/2024 9:00 AM Provider Kodi Lizarraga MD [facility] ) Diet: Heart Healthy and Low Sodium (2gm) Addtl Attending Provider Instructions: Mrs Carlson You were admitted for IV antibiotics for urinary tract infection. You completed antibiotics in the hospital Please ensure follow up with your Primary Doctor. It was a pleasure taking care of you. Pending Studies at Discharge: No Stand-Alone Forms: My [facility] [email or web address], Smoking Cessation Medications and DC Order Prescriptions: Continued metoprolol succinate 50 mg tablet extended release 24 hr 50 mg PO BID Qty: 180 3RF amiodarone 200 mg tablet 200 mg PO QDD Qty: 90 3RF furosemide 40 mg tablet 40 mg PO QAM Qty: 90 3RF Patient Comments: was told yesterday to cut down to 20 mg sodium chloride 1,000 mg tablet,soluble 1,000 mg PO BID Qty: 180 3RF amlodipine 10 mg tablet 10 mg PO QDD Qty: 90 3RF aspirin 325 mg tablet 325 mg PO QAM Qty: 100 levothyroxine 75 mcg capsule 75 mcg PO DAILYBB diclofenac sodium 1 % gel 2 g TOPICAL QID PRN (Reason: Pain) Rx Instructions: Apply to right foot four times daily, as needed for pain. Multiple Vitamin-Minerals Tablet 1 tab PO DAILY buspirone 5 mg tablet 5 mg PO BID PRN (Reason: Other) cyanocobalamin (vitamin B-12) 1,000 mcg Tablet 1,000 mcg PO Q OTHER DAY magnesium oxide 500 mg magnesium Tablet 500 mg PO DAILY calcium carbonate-vitamin D3 [Calcium 600 + D(3)] 600 mg-10 mcg (400 unit) Tablet 1 tab PO DAILY potassium gluconate 600 mg (99 mg) Tablet 600 mg PO DAILY PreserVision AREDS-2 250-90-40-1 mg Capsule 1 tab PO BID Systane Ultra 0.4-0.3 % Drops 1 drp OPHTHALMIC (EYE) QID tobramycin 0.3 % drops 1 drp OPB QID Rx Instructions: Start Date 01/25/24 x7 day supply Discharge Orders: Discharge Order (Routine); Ordered 02/02/24 Ordered By: Marlene Chapman Admission Data Admit Date/Time: 01/28/24 19:23 Attending Provider: Marlene Chapman I. Admit Provider: Maryse Iniguez Primary Care Provider: Kodi Lizarraga Other Providers: Maryse Iniguez; [facility]; Fredo Vaughn Other Interventions: Discharge Summary Assessment (RN) Last Done: 02/02/24 14:29
== END 2024-02-02 15:02 | disposition home or self-care (01) | DRG 690 ==
LOC: ED 15:58 → SUATTDRO 19:23 → 3W 19:23 → 3N 01-29 21:02

== ENCOUNTER 2024-02-17 12:00 | Inpatient (IN) ==
[2024-02-17 12:51] LABS: Basophils # (auto) 0.06 K/uL (0.00-0.20); Basophils % (auto) 0.4 %; Eosinophils # (auto) 0.02 K/uL (0.00-0.50); Eosinophils % (auto) 0.1 %; Hematocrit (blood only) 34.8 % (37.0-47.0); Hemoglobin 11.8 g/dl (12.0-16.0); Immature Granulocytes # (auto) 0.07 K/uL (0.01-0.20); Immature Granulocytes % (auto) 0.5 %; Lymphocytes % (auto) 4.4 %; Mean Corpuscular Hemoglobin 32.6 pg (25.0-34.0); Mean Corpuscular Hgb Conc 33.9 g/dL (32.0-36.0); Mean Corpuscular Volume 96.1 fL (80.0-100.0); Mean Platelet Volume 10.8 fL (9.4-12.4); Monocytes # (auto) 1.79 K/uL (0.11-0.59); Monocytes % (auto) 13.1 %; Neutrophils % (auto) 81.5 %; Platelet Count 226 K/uL (130-400); RDW Coefficient of Variation 13.7 % (11.5-14.5); RDW Standard Deviation 48.4 fL (36.4-46.3); Red Blood Count 3.62 M/uL (4.20-5.40); White Blood Count 13.64 K/ul (4.8-10.8)
[2024-02-17 13:02] LABS: Appearance Urine Clear (Clear); Bacteria Urine Automated 4+ (None Seen); Bilirubin Urine Negative (Negative); Blood Urine Negative (Negative); Cast Urine Automated 0-2 /lpf (0-2); Color Urine Yellow; Epithelial Cell Urine Auto 0-2 /hpf (0-2); Glucose Urine UA Negative (Negative); Ketones Urine Negative (Negative); Leukocyte Esterase Urine Trace (Negative); Nitrite Urine Positive (Negative); Protein Urine Negative (Negative); RBC Urine Automated 0-2 /hpf (0-2); Specific Gravity Urine 1.008 (1.000-1.030); Urobilinogen Urine Negative (Negative); WBC Urine Automated 0-5 /hpf (0-5)
[2024-02-17 13:07] LABS: Albumin Globulin Ratio 1.2 (0.9-2); Albumin Level 4.5 gm/dl (3.4-5.0); BUN Creatinine Ratio 20.6 (10-20); Calcium 9.9 mg/dl (8.6-10.3); Creatinine Clr Calc Pharmacy 32.6 ml/min; Globulin 3.8 gm/dl (2.5-4.0); Magnesium 1.9 mg/dl (1.7-2.4); Phosphorus 3.4 mg/dl (2.5-4.9); Potassium 3.9 mmol/L (3.5-5.1); Total Protein 8.3 gm/dl (6.0-8.3)
[2024-02-17 13:11] LABS: Prothrombin Time 10.6 Seconds (9.0-12.0)
[2024-02-17 13:13] LABS: Troponin I High Sensitivity 6.7 pg/ml (0-14)
--- NOTE | 2024-02-17 13:13 | XRay Report ---
XR chest 1V portable CLINICAL HISTORY: Chest pain, nonspecific COMPARISON STUDY: Chest radiograph January 28, 2024. FINDINGS: There is no pneumothorax. Small bilateral pleural effusions are present. There is mild inte rstitial thickening. Hazy bibasilar opacities likely reflect epicardial fat pad or atelectasis. Cardi omegaly is again noted. IMPRESSION: Cardiomegaly with mild interstitial pulmonary edema and small bilateral pleural effusion s. ACT 112: Negative or not required by law. Electronically signed by: Davis Thompson M.D. 02/17/2024 1:10 PM
--- NOTE | 2024-02-17 13:19 | Emergency Department Note ---
Impression & Plan UTI (urinary tract infection), Generalized weakness, Bilateral pleural effusion ED Provider Note NAME: JEN GALLOWAY AGE: 84 SEX: F : 1940 ARRIVES VIA: Ambulance INFORMANT: Patient ED PROVIDER(S): Ross Kulkarni MD CHIEF COMPLAINT: Feverishness, chills, generalized weakness PLAN: Disposition: Admit MEDICAL DECISION MAKING: The patient is a pleasant 84-year-old woman with a past medical history of CKD, paroxysmal atrial fibrillation, aortic insufficiency, CKD, hyponatremia, complicated urinary tract infection who presents to the emergency department via EMS for evaluation of feverishness, chills, generalized weakness that began this morning. Patient Nuys any chest pain, shortness of breath, GI symptoms. She reports she was treated for urinary infection 6 weeks ago. On evaluation the patient is fatigued appearing but no acute distress,, afebrile with stable vital signs. She appears slightly hypervolemic. Abdomen is benign. She exhibits generalized weakness without focal extremity weakness. EKG without overt acute ischemia. CXR demonstrates mild pulmonary edema and bilateral pleural effusions consistent patient's hypervolemic appearance. WBC 13.6 K with neutrophil predominance but no left shift, nonspecific. H/H similar to prior. Platelets within the limits. Chemistry without metabolic acidosis. Electrolytes and LFTs without significant abnormality. High- sensitivity troponin 6.7, within normal limits. Lipase is normal. UA is consistent with infection with positive nitrites and 4+ bacteria. Respiratory BioFire was negative. Prior urine cultures reviewed and patient grew Citrobacter freundii in February 2023 and prior to that grew Enterococcus faecalis in May 2021. Treatment initiated with IV cefepime which would treat her most recent urine culture. Given the patient's weakness associated with her urinary tract infection she agrees with plan for admission and further management. Case was discussed with Isaias Rendon, with Isaias Kelley hospitalist who will evaluate the patient for admission. Further management per admitting team. Triage Nursing notes reviewed and agree them. Prior/external medical records reviewed Vital Signs: reviewed Differential diagnosis: Infection, dehydration, metabolic abnormality, hypo/hyperglycemia, electrolyte disturbance, anemia, hypoxia, cardiac sources, intracerebral event, toxicologic, neurologic, as well as other pathologies. ER treatment provided: See below. Diagnostics interpreted by me: ECG: Sinus rhythm with first-degree block, 74 bpm, no ectopy, left bundle branch block, no sgarbossa criteria, QTc 488, QRS 136. Left bundle branch block similar to prior. Cardiac Monitoring: An order for continuous cardiac monitoring was placed and demonstrated Sinus rhythm with first-degree block, 74 bpm, no ectopy,. Laboratory studies: See below Imaging studies: See below Consultation(s): Isaias Rendon, with Dr. [facility] hospitalist HPI: The patient is a pleasant 84-year-old woman with a past medical history of CKD, paroxysmal atrial fibrillation, aortic insufficiency, CKD, hyponatremia, complicated urinary tract infection who presents to the emergency department via EMS for evaluation of feverishness, chills, generalized weakness that began this morning. Patient Nuys any chest pain, shortness of breath, GI symptoms. She reports she was treated for urinary infection 6 weeks ago. ROS: See above HPI for pertinent positives & negatives. A total of 10 systems reviewed and were otherwise negative. VITALS:See Below PHYSICAL EXAMINATION: GENERAL: Awake, alert, fatigued appearing, in no distress HENT: Normocephalic, atraumatic. Oropharynx unremarkable. EYES: Normal conjunctiva. Sclera non-icteric. NECK: Supple. No nuchal rigidity. FROM. No JVD. RESPIRATORY: Clear to auscultation. CARDIAC: Regular rate, normal rhythm. Extremities warm and well perfused. Pulses equal. ABDOMEN: Soft, non-distended. No tenderness to palpation. No rebound or guarding. MUSCULOSKELETAL: Chest examination reveals no tenderness. The back is symmetrical on inspection without obvious abnormality. There is no CVA tenderness to palpation. No joint edema. LOWER EXTREMITIES: Calves are equal size bilaterally and non-tender. Mild BLE edema. No discoloration. NEURO: No focal sensory or motor deficits noted. CNII-XI grossly intact. I Generalized weakness with 4/5 strength x 4 Ext. SKIN: No rash or jaundice noted. Ross Kulkarni MD Past Med/Surg History Problem List (Updated 02/18/24 @ 00:45 by Ross Kulkarni MD) Generalized weakness (Acute) Macular degeneration Cat scratch High serum calcium (Acute) Acute hyponatremia (Acute) UTI (urinary tract infection) (Acute) Complicated UTI (urinary tract infection) Chronic kidney disease, stage 3a Hyponatremia with decreased serum osmolality CKD (chronic kidney disease), stage III Paroxysmal atrial fibrillation Hypothyroidism Hypertension (HFpEF) heart failure with preserved ejection fraction Aortic insufficiency Mitral regurgitation Bilateral pleural effusion (Acute) On amiodarone therapy Anemia (Acute) Bilateral pneumonia Abrasion of right elbow (Acute) Contusion of right hip (Acute) Elevated blood pressure, situational (Acute) Infection of wound hematoma Medical History Shortness of breath Hypoxic Acute respiratory failure with hypoxia SOB (shortness of breath) Mitral regurgitation Chronic heart failure with preserved ejection fraction Atypical chest pain GERD (gastroesophageal reflux disease) Pneumonia Chest pain Chest pain Diverticulitis Afib Surgical History Hx of cholecystectomy Hx of hysterectomy Family History Mother Stroke Social History Smoking Status: Never smoker Second Hand Exposure: No; Do You Dip or Chew Tobacco: No; Hx Alcohol Use: No Hx Substance Use: No Preferred Language: Welsh Communication Ability: Effective 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 Beliefs That Will Affect Care: None marital status: Current Living Situation: Alone Current Living Situation Comment: Has an aide who comes over current occupational status: retired How many Children do You have: 3 Feels Safe at Home: Yes Assistive Devices: Denture - Upper, Denture - Lower, Hearing Aid - Bilateral and Walker Allergies Allergies Allergy/AdvReac Type Severity Reaction Status Date / Time Quinolones Allergy Intermediate HIVES Verified 01/28/24 18:46 dabigatran etexilate Allergy Unknown ON Verified 01/28/24 18:46 [facility] MED LIST metronidazole AdvReac Intermediate GI SYMPTOMS Verified 01/28/24 18:46 sulfamethoxazole AdvReac Mild GI SYMPTOMS Verified 01/28/24 18:46 trimethoprim AdvReac Mild GI SYMPTOMS Verified 01/28/24 18:46 Home Meds Home Medications Medication Instructions Recorded Confirmed aspirin 325 mg tablet 325 mg PO QAM #100 tabs 01/28/19 02/17/24 levothyroxine 75 mcg capsule 75 mcg PO DAILYBB 03/14/19 02/17/24 diclofenac sodium 1 % topical gel 2 g topical QID PRN Pain 05/27/21 02/17/24 buspirone 5 mg tablet 5 mg PO BID PRN Other 07/18/22 02/17/24 cyanocobalamin (vitamin B-12) 1,000 mcg PO Q OTHER DAY 07/18/22 02/17/24 1,000 mcg tablet multivitamin with minerals 1 tab PO DAILY 07/18/22 02/17/24 (Multiple Vitamin-Minerals tablet) calcium 600 mg (as 1 tab PO DAILY 11/27/23 02/17/24 carbonate)-vitamin D3 10 mcg (400 unit) tablet (Calcium 600 + D(3)) magnesium oxide 500 mg PO DAILY 11/27/23 02/17/24 peg 400-propylene glycol 0.4 %-0.3 1 drp ophthalmic (eye) QID 11/27/23 02/17/24 % eye drops (Systane Ultra) potassium gluconate 600 mg (99 mg) 600 mg PO DAILY 11/27/23 02/17/24 tablet vit C 250 mg-vit E 90 mg-zinc 40 1 tab PO BID 11/27/23 02/17/24 mg-copper 1 [id number] capsule (PreserVision AREDS-2) tobramycin 0.3 % eye drops 1 drp OPB QID 01/28/24 02/17/24 Previous Rx's Medication Instructions Recorded amlodipine 10 mg tablet 10 mg PO QDD #90 tabs 03/21/20 metoprolol succinate 50 mg 50 mg PO BID #180 tabs 02/18/23 tablet,extended release 24 hr amiodarone 200 mg tablet 200 mg PO QDD #90 tabs 05/26/23 furosemide 40 mg tablet 40 mg PO QAM #90 tabs 06/11/23 sodium chloride 1,000 mg soluble 1,000 mg PO BID #180 tabs 07/07/23 tablet Results & Data (ED) Vital Signs Vital Signs - 24 hr 02/17/24 12:00 02/17/24 12:06 02/17/24 12:12 Temperature 36.8 C Temperature Source Oral Pulse Rate 75 75 78 Pulse Rate from SpO2 Sensor Pulse Rhythm Regular Respiratory Rate 17 17 Respiratory Effort / Characteristics Non-Labored Respiratory Depth Normal Respiratory Pattern Regular Blood Pressure 137/58 L Blood Pressure Mean 84 Pulse Oximetry 94 94 Oxygen Delivery Method Room Air Room Air Sepsis Recent Fever Within 48 Hours No Sepsis New/Unexplained Change in Mental Status N/A Sepsis Action Taken by Nursing No Action Required 02/17/24 13:30 Temperature Temperature Source Pulse Rate 66 Pulse Rate from SpO2 Sensor 66 Pulse Rhythm Respiratory Rate 23 Respiratory Effort / Characteristics Respiratory Depth Respiratory Pattern Blood Pressure 122/59 L Blood Pressure Mean 93 Pulse Oximetry 93 Oxygen Delivery Method Sepsis Recent Fever Within 48 Hours Sepsis New/Unexplained Change in Mental Status Sepsis Action Taken by Nursing Laboratory Data Attestation: I reviewed the patient's lab results. 02/17/24 12:15 02/17/24 12:15 Lab Results 02/17/24 02/17/24 02/17/24 Range/Units 12:15 12:48 12:49 WBC 13.64 H (4.8-10.8) K/ul RBC 3.62 L (4.20-5.40) M/uL Hgb 11.8 L (12.0-16.0) g/dl Hct 34.8 L (37.0-47.0) % MCV 96.1 (80.0-100.0) fL MCH 32.6 (25.0-34.0) pg MCHC 33.9 (32.0-36.0) g/dL RDW Std Deviation 48.4 H (36.4-46.3) fL RDW Coeff of Ursula 13.7 (11.5-14.5) % Plt Count 226 (130-400) K/uL MPV 10.8 (9.4-12.4) fL Immature Gran % (Auto) 0.5 % Neut % (Auto) 81.5 % Lymph % (Auto) 4.4 % White % (Auto) 13.1 % Eos % (Auto) 0.1 % Baso % (Auto) 0.4 % Neut # (Auto) 11.10 H (1.40-6.50) K/uL Lymph # (Auto) 0.60 L (1.20-3.40) K/uL White # (Auto) 1.79 H (0.11-0.59) K/uL Eos # (Auto) 0.02 (0.00-0.50) K/uL Baso # (Auto) 0.06 (0.00-0.20) K/uL Immature Gran # (Auto) 0.07 (0.01-0.20) K/uL PT 10.6 (9.0-12.0) Seconds INR 1.0 (0.9-1.1) Sodium 138 (136-145) mmol/L Potassium 3.9 (3.5-5.1) mmol/L Chloride 100 (98-107) mmol/L Carbon Dioxide 28 (21-32) mmol/L Anion Gap 10 (3-11) BUN 22 (6-23) mg/dl Creatinine 1.07 (0.6-1.2) mg/dl Est Cr Clr Drug Dosing 32.6 ml/min eGFR 50.59 BUN/Creatinine Ratio 20.6 H (10-20) Glucose 124 H (70-99(Fasting)) mg/dl Calcium 9.9 (8.6-10.3) mg/dl Phosphorus 3.4 (2.5-4.9) mg/dl Magnesium 1.9 (1.7-2.4) mg/dl Total Bilirubin 1.0 (0.2-1.0) mg/dl AST 19 (13-39) U/L ALT 11 (7-52) U/L Alkaline Phosphatase 70 (34-104) U/L Troponin I High Sens 6.7 (0-14) pg/ml Total Protein 8.3 (6.0-8.3) gm/dl Albumin 4.5 (3.4-5.0) gm/dl Globulin 3.8 (2.5-4.0) gm/dl Albumin/Globulin Ratio 1.2 (0.9-2) Lipase 27 (11-82) U/L Urine Color Yellow Urine Appearance Clear (Clear) Urine pH 6.0 (4.5-7.5) Ur Specific [employer] 1.008 (1.000-1.030) Urine Protein Negative (Negative) Urine Glucose (UA) Negative (Negative) Urine Ketones Negative (Negative) Urine Blood Negative (Negative) Urine Nitrite Positive A (Negative) Urine Bilirubin Negative (Negative) Urine Urobilinogen Negative (Negative) Ur Leukocyte Esterase Trace H (Negative) Urine WBC (Auto) 0-5 (0-5) /hpf Urine RBC (Auto) 0-2 (0-2) /hpf U Hyaline Cast (Auto) 0-2 (0-2) /lpf U Epithel Cells (Auto) 0-2 (0-2) /hpf Urine Bacteria (Auto) 4+ H (None Seen) Adenovirus (PCR) Not Detected (NotDetected) B. pertussis DNA (PCR) Not Detected (NotDetected) B.parapertussis DNA PCR Not Detected (NotDetected) C. pneumoniae DNA (PCR) Not Detected (NotDetected) Coronavirus OC43 (PCR) Not Detected (NotDetected) Coronavirus HKU1 (PCR) Not Detected (NotDetected) Coronavirus 229E (PCR) Not Detected (NotDetected) SARS-CoV-2 (PCR) Not Detected (NotDetected) Coronavirus NL63 (PCR) Not Detected (NotDetected) Human Metapneumovir PCR Not Detected (NotDetected) Influenza Type A (PCR) Not Detected (NotDetected) Influenza Type B (PCR) Not Detected (NotDetected) M. pneumoniae (PCR) Not Detected (NotDetected) Parainfluenza 1 (PCR) Not Detected (NotDetected) Parainfluenza 2 (PCR) Not Detected (NotDetected) Parainfluenza 3 (PCR) Not Detected (NotDetected) Parainfluenza 4 (PCR) Not Detected (NotDetected) RSV (PCR) Not Detected (NotDetected) Entero/Rhino (PCR) Not Detected (NotDetected) Administered Medications Acetaminophen (Acetaminophen 325 Mg Tab) 650 mg PO Q4H PRN PRN Reason: Pain or Fever Stop: 03/18/24 16:29 Last Admin: 02/17/24 21:55 Dose: 650 mg Documented By: Admin: 02/17/24 17:34 Dose: 650 mg Documented By: AGUSTÍN Amiodarone HCl (Amiodarone 200 Mg Tab) 200 mg PO QDD [facility] Stop: 03/18/24 16:29 Last Admin: 02/17/24 17:35 Dose: 200 mg Documented By: AGUSTÍN Amlodipine Besylate (Amlodipine Besylate 5 Mg Tab) 10 mg PO QDD [facility] Stop: 03/18/24 16:59 Last Admin: 02/17/24 17:35 Dose: 10 mg Documented By: AGUSTÍN Artificial Tears (Artificial Tears) 1 drops OP QID [facility] Stop: 03/18/24 16:59 Last Admin: 02/17/24 21:24 Dose: 1 drops Documented By: Admin: 02/17/24 17:47 Dose: 1 drops Documented By: AGUSTÍN Buspirone HCl (Buspirone 5 Mg Tab) 5 mg PO BID PRN PRN Reason: Anxiety Stop: 03/18/24 14:43 Last Admin: 02/17/24 17:35 Dose: 5 mg Documented By: AGUSTÍN Metoprolol Succinate (Metoprolol Succ 50mg Ext Rel Tab) 50 mg PO BID [facility] Stop: 03/18/24 20:59 Last Admin: 02/17/24 21:23 Dose: 50 mg Documented By: MADIHA Multivitamins/Minerals (Cerovite Adv Formula Tab) 1 tab PO BID [facility] Stop: 03/18/24 20:59 Last Admin: 02/17/24 21:54 Dose: 1 tab Documented By: MADIHA Sodium Chloride (Sodium Chloride 1 Gm Tablet) 1 gm PO BID [facility] Stop: 03/18/24 20:59 Last Admin: 02/17/24 21:55 Dose: 1 gm Documented By: MADIHA Tobramycin Sulfate (Tobramycin Sulf 0.3% Op Soln 5 Ml Btl) 1 drops OPB QID [facility] Stop: 02/27/24 16:59 Last Admin: 02/17/24 21:54 Dose: Not Given Documented By: Admin: 02/17/24 17:36 Dose: 1 drops Documented By: AGUSTÍN Trimethoprim/Sulfamethoxazole (Sulfamethoxazole/Trimethoprim Ds 800/160mg Tab) 1 tab PO Q12 [facility] Stop: 02/24/24 20:59 Last Admin: 02/17/24 21:55 Dose: 1 tab Documented By: MADIHA Discontinued Medications Cefepime HCl (Maxipime 2000mg) 2,000 mg in 20 mls @ 5 mls/min IV NOW STA; Protocol Stop: 02/17/24 13:31 Last Admin: 02/17/24 14:10 Dose: 5 mls/min Documented By: ASAD Lactobacillus Acidophilus (Advanced Probiotic 625 Mg Capsule) 1,250 mg PO ONE STA Stop: 02/17/24 14:31 Last Admin: 02/17/24 15:29 Dose: 1,250 mg Documented By: JOHN Imaging Data Radiologist's Impression: Chest X-Ray 02/17/24 12:27 XR chest 1V portable CLINICAL HISTORY: Chest pain, nonspecific COMPARISON STUDY: Chest radiograph January 28, 2024. FINDINGS: There is no pneumothorax. Small bilateral pleural effusions are present. There is mild interstitial thickening. Hazy bibasilar opacities likely reflect epicardial fat pad or atelectasis. Cardiomegaly is again noted. IMPRESSION: Cardiomegaly with mild interstitial pulmonary edema and small bilateral pleural effusions. ACT 112: Negative or not required by law. Electronically signed by: Davis Thompson M.D. 02/17/2024 1:10 PM Discharge Plan Visit Data Chief Complaint: Illness Stated Complaint: Illness ED Provider: Ross Kulkarni Discharge Problem: UTI (urinary tract infection), Generalized weakness, Bilateral pleural effusion Patient Disposition: Admitted As Inpatient Discharge Instructions Interventions: ED Discharge Assessment Last Done: 02/17/24 15:43 Discharge Problem: UTI (urinary tract infection) Qualifiers: Urinary tract infection type: acute cystitis Hematuria presence: without hematuria Qualified Code(s): N30.00 - Acute cystitis without hematuria
[2024-02-17 13:46] LABS: Adenovirus PCR Not Detected (NotDetected); Bordetella parapertussis PCR Not Detected (NotDetected); Bordetella pertussis PCR Not Detected (NotDetected); Chlamydia pneumoniae PCR Not Detected (NotDetected); Coronavirus 229E PCR Not Detected (NotDetected); Coronavirus CoV-2 (COVID19)PCR Not Detected (NotDetected); Coronavirus HKU1 PCR Not Detected (NotDetected); Coronavirus NL63 PCR Not Detected (NotDetected); Coronavirus OC43PCR Not Detected (NotDetected); Human Metapneumovirus PCR Not Detected (NotDetected); Influenza A PCR Not Detected (NotDetected); Influenza B PCR Not Detected (NotDetected); Mycoplasma pneumoniae PCR Not Detected (NotDetected); Parainfluenza Virus 1 PCR Not Detected (NotDetected); Parainfluenza Virus 2 PCR Not Detected (NotDetected); Parainfluenza Virus 3 PCR Not Detected (NotDetected); Parainfluenza Virus 4 PCR Not Detected (NotDetected); Respiratory Syncytial VirusPCR Not Detected (NotDetected); Rhinovirus/Enterovirus PCR Not Detected (NotDetected)
--- NOTE | 2024-02-17 13:54 | History & Physical Report ---
Date of Service February 17, 2024 Assessment & Plan (1) Complicated UTI (urinary tract infection): (2) Paroxysmal atrial fibrillation: (3) Hypertension: (4) Hypothyroidism: (5) (HFpEF) heart failure with preserved ejection fraction: (6) Cat scratch: (7) Macular degeneration: Plan Ms. Carlson is an 84 y/o F that presented to the ED today via EMS With complaints of generalized weakness and aches along with shaking that began this morning. She was recently admitted on 01/27 to 02/01 with a UTI and treated with IV cefepime x 5 days. She did not go home on any oral antibiotics. Recent cultures 03/01 Citrobacter Freundii and on culture grew E. Faecais. She reports that her grandson visited yesterday and brought his cat. The cat did scratch her right forearm and there is visible ecchymosis and erythema around the scratch. PMH includes: AF (not on any anticoagulation), recurrent complicated UTI's, HFpEF, SIADH, HTN, and depression. Mild leukocytosis 13.64 otherwise labs unremarkable. Bio fire negative, no transaminitis or troponin elevation. Clean-catch urine revealed slight LE and positive nitrates. Most recent ECHO 04/2023: EF 55-60%, mild concentric LVH, normal RV function, moderate to severe MR, moderate AR. Patient will be admitted for further evaluation and management of her complicated UTI and cat scratch. Will treat with IV cefepime plus oral Bactrim with addition of probiotic. Will add PT/OT given patient living alone at home to have on file for any short-term rehab in the future. Complicated UTI: Acute: Recent admission 02/05/2025 with UTI received 5 days cefepime IV; did not con tinue on any oral antibiotics upon discharge Recent cultures 03/01 Citrobacter Freundii and on culture grew E. Faecais Cefepime received in the ED; continue for now Leukocytosis 13.64 1 set blood cultures obtained prior to cefepime initiation in ED Cat scratch: Acute Grandson brought his cat to her house last evening and scratched right forearm Notable ecchymosis around cat scratch with open area Will cover with oral Bactrim for now; discussed with patient with regards to GI symptoms listed as allergy history with Bactrim Probiotic ordered PAF: Chronic Takes amiodarone and metoprolol; continue Does not take any anticoagulation due to patient preference (documented in chart) Hypothyroidism: Chronic Takes levothyroxine; continue HFpEF: Chronic Most recent ECHO 04/2023: EF 55-60%, mild concentric LVH, normal RV function, moderate to severe MR, moderate AR Takes Lasix 40 mg daily; continue Appears euvolemic; CXR revealed small b/l pleural effusions SIADH: Chronic Takes NaCl 1G daily; continue Macular Degeneration: Chronic Takes PreserVision and Systane; continue Disposition: PCP: Dr. Lizarraga CODE STATUS: DNR/DNI VTE prophylaxis: Teds and SCDs for now I spent a total of 84 minutes coordinating, documenting, and providing care for this patient excluding time spent in the performance of separately billed services. All of the aforementioned completed while collaborating with the assigned attending physician for a full treatment plan. Please see their addendum for further details. History of Present Illness Chief Complaint: generalized weakness Primary Care Provider: Kodi Lizarraga MD Ms. Carlson is an 84 year old female that presented to the ED today via EMS With complaints of generalized weakness and aches along with shaking that began this morning. She was recently admitted on 01/27 to 02/01 with a UTI and treated with IV cefepime x 5 days. She did not go home on any oral antibiotics. Recent cultures 03/01 Citrobacter Freundii and on culture grew E. Faecais. She reports that her grandson visited yesterday and brought his cat. The cat did scratch her right forearm and there is visible ecchymosis and erythema around the scratch. Additional PMH includes: AF (not on any anticoagulation), recurrent complicated UTI's, HFpEF, SIADH, HTN, and depression. Mild leukocytosis 13.64 otherwise labs unremarkable. Bio fire negative, no transaminitis or troponin elevation. Clean-catch urine revealed slight LE and positive nitrates. Most recent ECHO 04/2023: EF 55-60%, mild concentric LVH, normal RV function, moderate to severe MR, moderate AR. Pt states that her shakes have improved and she is starting to feel better but does still feel achy. Pt denies NINA, dizziness, SOB. chest pain, palpitations, N/V/D, recent falls or trauma. Patient will be admitted for further evaluation and management of her complicated UTI and cat scratch. Will treat with IV cefepime plus oral Bactrim with addition of probiotic. Will add PT/OT given patient living alone at home to have on file for any short-term rehab in the future. Please see A/P for further details. Allergies Allergy/AdvReac Type Severity Reaction Status Date / Time Quinolones Allergy Intermediate HIVES Verified 01/28/24 18:46 dabigatran etexilate Allergy Unknown ON Verified 01/28/24 18:46 [facility]ER MED LIST metronidazole AdvReac Intermediate GI SYMPTOMS Verified 01/28/24 18:46 sulfamethoxazole AdvReac Mild GI SYMPTOMS Verified 01/28/24 18:46 trimethoprim AdvReac Mild GI SYMPTOMS Verified 01/28/24 18:46 Home Medications Medication Instructions Recorded Confirmed Type aspirin 325 mg tablet 325 mg PO QAM #100 tabs 01/28/19 02/17/24 History levothyroxine 75 mcg capsule 75 mcg PO DAILYBB 03/14/19 02/17/24 History amlodipine 10 mg tablet 10 mg PO QDD #90 tabs 03/21/20 02/17/24 Rx diclofenac sodium 1 % topical gel 2 g topical QID PRN Pain 05/27/21 02/17/24 History buspirone 5 mg tablet 5 mg PO BID PRN Other 07/18/22 02/17/24 History cyanocobalamin (vitamin B-12) 1,000 mcg PO Q OTHER DAY 07/18/22 02/17/24 History 1,000 mcg tablet multivitamin with minerals 1 tab PO DAILY 07/18/22 02/17/24 History (Multiple Vitamin-Minerals tablet) metoprolol succinate 50 mg 50 mg PO BID #180 tabs 02/18/23 02/17/24 Rx tablet,extended release 24 hr amiodarone 200 mg tablet 200 mg PO QDD #90 tabs 05/26/23 02/17/24 Rx furosemide 40 mg tablet 40 mg PO QAM #90 tabs 06/11/23 02/17/24 Rx sodium chloride 1,000 mg soluble 1,000 mg PO BID #180 tabs 07/07/23 02/17/24 Rx tablet calcium 600 mg (as 1 tab PO DAILY 11/27/23 02/17/24 History carbonate)-vitamin D3 10 mcg (400 unit) tablet (Calcium 600 + D(3)) magnesium oxide 500 mg PO DAILY 11/27/23 02/17/24 History peg 400-propylene glycol 0.4 %-0.3 1 drp ophthalmic (eye) QID 11/27/23 02/17/24 History % eye drops (Systane Ultra) potassium gluconate 600 mg (99 mg) 600 mg PO DAILY 11/27/23 02/17/24 History tablet vit C 250 mg-vit E 90 mg-zinc 40 1 tab PO BID 11/27/23 02/17/24 History mg-copper 1 [id number] capsule (PreserVision AREDS-2) tobramycin 0.3 % eye drops 1 drp OPB QID 01/28/24 02/17/24 History Past Med/Surg History Problem List (Updated 02/17/24 @ 17:10 by Ross Kulkarni MD) Generalized weakness (Acute) Macular degeneration Cat scratch High serum calcium (Acute) Acute hyponatremia (Acute) UTI (urinary tract infection) (Acute) Complicated UTI (urinary tract infection) Chronic kidney disease, stage 3a Hyponatremia with decreased serum osmolality CKD (chronic kidney disease), stage III Paroxysmal atrial fibrillation Hypothyroidism Hypertension (HFpEF) heart failure with preserved ejection fraction Aortic insufficiency Mitral regurgitation Bilateral pleural effusion On amiodarone therapy Anemia (Acute) Bilateral pneumonia Abrasion of right elbow (Acute) Contusion of right hip (Acute) Elevated blood pressure, situational (Acute) Infection of wound hematoma Medical History Shortness of breath Hypoxic Acute respiratory failure with hypoxia SOB (shortness of breath) Mitral regurgitation Chronic heart failure with preserved ejection fraction Atypical chest pain GERD (gastroesophageal reflux disease) Pneumonia Chest pain Chest pain Diverticulitis Afib Surgical History Hx of cholecystectomy Hx of hysterectomy Family History Mother Stroke Social History Smoking Status: Never smoker Second Hand Exposure: No; Do You Dip or Chew Tobacco: No; Hx Alcohol Use: No Hx Substance Use: No Preferred Language: B[place] Communication Ability: Effective Shop Assistant Required: No Beliefs That Will Affect Care: None marital status: Current Living Situation: Alone Current Living Situation Comment: Has an aide who comes over current occupational status: retired How many Children do You have: 3 Feels Safe at Home: Yes Assistive Devices: Denture - Upper, Denture - Lower, Hearing Aid - Bilateral and Walker Review of Systems Review of Systems: Neuro: (-) Falls, trauma, slurred speech HEENT: (-) NINA, dizziness, dysphagia, visual or auditory changes CV: (-) CP, palpitations, swelling Resp: (-) SOB GI: (-) appetite changes, N/V/D, bowel changes : (-) urinary changes Skin: (-) rashes Psych: (-) anxiety, depression Physical Exam Physical Exam: See Dr. Pederson's addendum for physical examination findings Results & Data Results & Data Vital Signs (Past 12 Hours) Vital Signs Temp Pulse Resp BP Pulse Ox O2 Del Method 02/17/24 13:30 66 23 122/59 L 93 02/17/24 12:06 75 17 94 Room Air 02/17/24 12:00 36.8 C 75 17 137/58 L 94 Room Air Laboratory Results Short CBC 02/17/24 Range/Units 12:15 WBC 13.64 H (4.8-10.8) K/ul Hgb 11.8 L (12.0-16.0) g/dl Hct 34.8 L (37.0-47.0) % Plt Count 226 (130-400) K/uL BMP 02/17/24 12:15 Sodium 138 Potassium 3.9 Chloride 100 Carbon Dioxide 28 BUN 22 Creatinine 1.07 Glucose 124 H Calcium 9.9 Liver Function 02/17/24 Range/Units 12:15 Total Bilirubin 1.0 (0.2-1.0) mg/dl AST 19 (13-39) U/L ALT 11 (7-52) U/L Alkaline Phosphatase 70 (34-104) U/L Albumin 4.5 (3.4-5.0) gm/dl Urine 02/17/24 Range/Units 12:48 Urine Color Yellow Urine Appearance Clear (Clear) Urine pH 6.0 (4.5-7.5) Ur Specific [place] 1.008 (1.000-1.030) Urine Protein Negative (Negative) Urine Glucose (UA) Negative (Negative) Diagnostic Findings Chest X-Ray 02/17/24 12:27 XR chest 1V portable CLINICAL HISTORY: Chest pain, nonspecific COMPARISON STUDY: Chest radiograph January 28, 2024. FINDINGS: There is no pneumothorax. Small bilateral pleural effusions are present. There is mild interstitial thickening. Hazy bibasilar opacities likely reflect epicardial fat pad or atelectasis. Cardiomegaly is again noted. IMPRESSION: Cardiomegaly with mild interstitial pulmonary edema and small bilateral pleural effusions. ACT 112: Negative or not required by law. Electronically signed by: Davis Thompson M.D. 02/17/2024 1:10 PM Code Status & VTE Plan Code Status Full Code in the event of cardiac or respiratory arrest VTE Prophylaxis Plan VTE Prophylaxis will be ordered: Yes Supervising Physician Co-Signing Physician Notes Patient is an 84-year-old female with history of CKD stage III, paroxysmal atrial fibrillation currently not on anticoagulation, hypothyroidism, hypertension, HFpEF, aortic insufficiency and other medical problems presents with history of generalized ache, chills, poor appetite, generalized weakness. Patient was admitted recently and treated for UTI with IV cefepime. Patient admits to have cat scratch on her right upper extremity yesterday. Denies any significant pain currently. Please review HPI for complete details of presentation. I personally reviewed blood work with leukocytosis 13.6 K, glucose 124. Abnormal urinalysis with bacteriuria. BioFire negative. Chest x- ray showed mild interstitial pulmonary edema and small bilateral pleural effusions. Physical Exam: Vitals signs as noted above General Appearance: Thin, frail, elderly, no apparent distress Head: normocephalic, Atraumatic Eyes: normal inspection, EOMI Neck: supple, Trachea midline Respiratory/Chest: Normal breath sounds, CTA, No accessory muscle use Cardiovascular: S1, S2, +murmur Abdomen/GI:Soft, Non tender, Bowel sounds present Extremities/Musculoskeletal:normal inspection, 2+edema, + right upper extremity scratch ramirez with some erythema Neurologic/Psych:AAOX3, grossly no focal neurological deficits, decreased urine Skin: normal color, warm Complicated urinary tract infection Cat scratch SIRS, possible sepsis Blood, urine culture pending Agree with starting IV cefepime and Bactrim for now (Due to allergies, prior urine culture, amiodarone use, QTc prolongation) Blood, urine cultures pending I personally interviewed and examined at bedside. Patient's care is coordinated with Gabriel BERNAL. I have reviewed the advanced practitioner's documentation, and I agree with plan of care. Please refer to the documentation above for details of patient's presentation and for discussion of other issues. I spent a total [id number] coordinating, documenting, and providing care for this patient excluding time spent in the performance of separately billed services.
[2024-02-17] MEDS: CEFEPIME 2000MG 2,000 MG/20 ML SYR IV STA (14:10)
--- NOTE | 2024-02-17 14:22 | Electrocardiogram Report ---
Test Reason : Blood Pressure : */* mmHG Vent. Rate : 74 BPM Atrial Rate : 74 BPM P-R Int : 352 ms QRS Dur : 136 ms QT Int : 440 ms P-R-T Axes : * -70 64 degrees QTcB Int : 488 ms Poor data quality, interpretation may be adversely affected Sinus rhythm with 1st degree A-V block Left axis deviation Left bundle branch block Minimal voltage criteria for LVH, may be normal variant T wave abnormality, consider lateral ischemia Abnormal ECG When compared with ECG of 27-Nov-2023 19:51, Sinus rhythm has replaced Atrial fibrillation Criteria for Septal infarct are no longer Present Borderline criteria for Lateral infarct are no longer Present Confirmed by Julio César Mendez ([id number]) on 02/17/2024 2:22:26 PM Referred By: Confirmed By: Julio César Mendez
[2024-02-17] MEDS: ADVANCED PROBIOTIC 625 MG CAPSULE PO STA (15:29)
[2024-02-17] MEDS ORDERED: MAGNESIUM HYDROXIDE SUSP 30 ML UDC PO PRN (16:30)
[2024-02-17] MEDS ORDERED: ALUMINUM/MAGNESIUM SUSP 30 ML UDC PO PRN (16:30)
[2024-02-17] MEDS ORDERED: ONDANSETRON INJ 2 MG/ML 2 ML VIAL IV PRN (16:30)
[2024-02-17] MEDS ORDERED: POLYETHYLENE (MIRALAX) 17 GM PACK PO PRN (16:30)
[2024-02-17] MEDS: ACETAMINOPHEN 325 MG TAB PO PRN (17:34)
[2024-02-17] MEDS: busPIRone 5 MG TAB PO PRN (17:35)
[2024-02-17] MEDS: AMIODARONE 200 MG TAB PO SCH (17:35)
[2024-02-17] MEDS: amLODIPine BESYLATE 5 MG TAB PO SCH (17:35)
[2024-02-17] MEDS: TOBRAMYCIN SULF 0.3% OP SOLN 5 ML BTL OPB SCH (17:36)
[2024-02-17] MEDS: ARTIFICIAL TEARS OP SCH (17:47)
[2024-02-17] MEDS: METOPROLOL SUCC 50MG EXT REL TAB PO SCH (21:23)
[2024-02-17] MEDS: CEROVITE ADV FORMULA TAB PO SCH (21:54)
[2024-02-17] MEDS: SULFAMETHOXAZOLE/TRIMETHOPRIM DS 800/160MG TAB PO SCH (21:55)
[2024-02-17] MEDS: SODIUM CHLORIDE 1 GM TABLET PO SCH (21:55)
[2024-02-18] MEDS: CEFEPIME 2000MG 2,000 MG/20 ML SYR IV SCH (01:02)
[2024-02-18 03:08] LABS: A calco-baum cmplx NotReported Not Detected (NotDetected); Bact fragilis Not Reported Not Detected (NotDetected); Blood Culture Id Panel See PCR Comment (NotDetected); C auris Not Reported Not Detected (NotDetected); CTX-M Resistant Gene Not Detected (NotDetected); Calbicans Not Reported Not Detected (NotDetected); Candida glabrata Not Reported Not Detected (NotDetected); Candida krusei Not Reported Not Detected (NotDetected); Cneoformans/gatti Not Reported Not Detected (NotDetected); Cparapsilosis Not Reported Not Detected (NotDetected); E cloacae compx Not Reported Not Detected (NotDetected); Efaecalis Not Reported Not Detected (NotDetected); Efaecium Not Reported Not Detected (NotDetected); Enterobacterales Not Reported DETECTED (NotDetected); Escherichia coli Not Reported DETECTED (NotDetected); H influenzae Not Reported Not Detected (NotDetected); IMP Resistant Gene Not Detected (NotDetected); K aerogenes Not Reported Not Detected (NotDetected); KPC Resistant Gene Not Detected (NotDetected); Koxytoca Not Reported Not Detected (NotDetected); Kpneumoniae grp Not Reported Not Detected (NotDetected); Lmonocyt Not Reported Not Detected (NotDetected); N meningitidis Not Reported Not Detected (NotDetected); NDM Resistant Gene Not Detected (NotDetected); OXA 48 Like Resistant Gene Not Detected (NotDetected); P aeruginosa Not Reported Not Detected (NotDetected); Proteus spp Not Reported Not Detected (NotDetected); Salmonella spp Not Reported Not Detected (NotDetected); Staph lugdunensis Not Reported Not Detected (NotDetected); Staph spp. Not Reported Not Detected (NotDetected); Staphaureus Not Reported Not Detected (NotDetected); Staphepi Not Reported Not Detected (NotDetected); Stenmaltophilia Not Reported Not Detected (NotDetected); Strep agal(GrpB) Not Reported Not Detected (NotDetected); Strep pneum Not Reported Not Detected (NotDetected); Strep pyog (GrpA) Not Reported Not Detected (NotDetected); Strep spp Not Reported Not Detected (NotDetected); VIM Resistant Gene Not Detected (NotDetected); mcr-1 Colistin Resistant Gene Not Detected (NotDetected)
[2024-02-18 03:12] LABS: Enterobacterales DETECTED (NotDetected)
[2024-02-18] MEDS: LEVOTHYROXINE SODIUM 75 MCG TABLET PO SCH (05:34)
[2024-02-18 07:19] LABS: BUN Creatinine Ratio 20.9 (10-20); Calcium 9.3 mg/dl (8.6-10.3); Creatinine Clr Calc Pharmacy 29.4 ml/min; Potassium 3.5 mmol/L (3.5-5.1)
[2024-02-18 07:22] LABS: Hematocrit (blood only) 29.9 % (37.0-47.0); Hemoglobin 9.8 g/dl (12.0-16.0); Mean Corpuscular Hemoglobin 32.1 pg (25.0-34.0); Mean Corpuscular Hgb Conc 32.8 g/dL (32.0-36.0); Mean Platelet Volume 10.6 fL (9.4-12.4); Platelet Count 179 K/uL (130-400); RDW Coefficient of Variation 14.3 % (11.5-14.5); RDW Standard Deviation 51.4 fL (36.4-46.3); Red Blood Count 3.05 M/uL (4.20-5.40); White Blood Count 11.46 K/ul (4.8-10.8)
[2024-02-18] MEDS: CYANOCOBALAMIN (B-12) 500 MCG TABLET PO SCH (08:19)
[2024-02-18] MEDS: ASPIRIN 325 MG ECTAB PO SCH (08:19)
[2024-02-18] MEDS: ADVANCED PROBIOTIC 625 MG CAPSULE PO SCH (08:19)
[2024-02-18] MEDS: cefTRIAXone SODIUM 2,000 MG/50 ML BAG IV SCH (08:42)
[2024-02-18] MEDS ORDERED: FUROSEMIDE 40 MG TAB PO SCH (09:00)
[2024-02-18] MEDS ORDERED: NON-FORMULARY MEDICATION (Potassium Gluconate 600 mg (99 mg) Tablet) PO SCH (09:00)
--- NOTE | 2024-02-18 12:34 | Hospitalist Progress Note ---
Date of Service February 18, 2024 Assessment & Plan (1) Complicated UTI (urinary tract infection): (2) Paroxysmal atrial fibrillation: (3) Hypertension: (4) Hypothyroidism: (5) (HFpEF) heart failure with preserved ejection fraction: (6) Cat scratch: (7) Macular degeneration: Plan Ms. Carlson is an 84 y/o F that presented to the ED today via EMS With complaints of generalized weakness and aches along with shaking that began on the morning of the day of the admission. Urosepsis Complicated UTI: Recent admission 02/05/2025 with UTI received 5 days cefepime IV; Urinalysis suggestive of infection Blood culture is growing gram-negative bacilli along with urine culture PCR positive for E. coli Will change antibiotics to ceftriaxone. Repeat blood culture on Wednesday Cellulitis Noted to have scratch on her right forearm from a cat Mild ecchymosis surrounding the area Continue on ceftriaxone for the cellulitis. Monitor PAF: Chronic Takes amiodarone and metoprolol; continue Does not take any anticoagulation due to patient preference (documented in chart) Hypothyroidism: Chronic Takes levothyroxine; continue Chronic HFpEF: Chronic Most recent ECHO 04/2023: EF 55-60%, mild concentric LVH, normal RV function, moderate to severe MR, moderate AR Takes Lasix 40 mg daily; continue SIADH: Chronic Takes NaCl 1G daily; continue Macular Degeneration: Chronic Takes PreserVision and Systane; continue Disposition: PCP: Dr. Lizarraga CODE STATUS: DNR/DNI VTE prophylaxis: heparin Time spent evaluating patient, direct bedside care, chart review, placing orders, interpretation of diagnostic studies, discussion with consultants, patient, and family members, as well as other required patient management activities is 50 minutes Please note the above document was generated using voice recognition software. It may contain grammatical, syntax or spelling errors. Any formal questions or concerns about the content, text or information contained within the body of this dictation should be directly addressed to the provider for clarification Admission and Anticipated Discharge Date Admission Date: February 17, 2024 Subjective Patient seen and examined at bedside. She reports that the chills has improved She denies any fever, cough, shortness of breath or abdominal pain/urinary symptoms No significant events overnight Review of Systems Review of Systems: All systems reviewed & are unremarkable except as noted in Subjective Physical Exam Physical Exam: Constitutional: Alert oriented x 3; not in distress. Respiratory: normal respiratory effort, lungs clear to auscultation, no wheeze, rales, rhonchi. Normal insp/exp effort, no accessory muscle use Cardiovascular: RRR, systolic murmur +, no edema Vessels: no JVD or carotid bruit Chest: normal inspection of chest Abdomen: normal bowel sounds, soft, nontender, no hepatosplenomegaly Musculoskeletal: no cyanosis or clubbing, extremities motor strength 5/5 Skin: no rashes, warm and dry normal turgor Neurologic: PERRL, EOMI, accommodation nl, no face palsy, no dysarthria CN's II- XI intact bilaterally and moves all extremities Psychiatric: A+Ox3, euthymic affect Results & Data Results & Data Vital Signs (Past 12 Hours) Vital Signs Temp Pulse Pulse Resp BP Pulse Ox O2 Del Method 02/18/24 11:43 36.3 C L 58 L 18 130/66 97 Room Air 02/18/24 09:08 59 L 02/18/24 07:55 36.6 C 54 L 14 129/56 L 95 Room Air 02/18/24 07:35 Room Air 02/18/24 04:03 36.6 C 60 18 119/78 97 Room Air
--- NOTE | 2024-02-18 14:41 | Electrocardiogram Report ---
Test Reason : Blood Pressure : */* mmHG Vent. Rate : 58 BPM Atrial Rate : 58 BPM P-R Int : 352 ms QRS Dur : 144 ms QT Int : 554 ms P-R-T Axes : 56 -36 57 degrees QTcB Int : 543 ms Sinus bradycardia with 1st degree A-V block Left axis deviation Left bundle branch block Abnormal ECG When compared with ECG of 17-Feb-2024 12:06, T wave inversion no longer evident in Lateral leads QT has lengthened Confirmed by Julio César Mendez ([id number]) on 02/18/2024 2:41:13 PM Referred By: REFERRED SELF Confirmed By: Julio César Mendez
[2024-02-18] MEDS: HEPARIN SOD 5,000 UNIT/0.5 ML VIAL SQ SCH (20:12)
[2024-02-19 07:41] LABS: Hematocrit (blood only) 29.5 % (37.0-47.0); Hemoglobin 10.1 g/dl (12.0-16.0); Mean Corpuscular Hemoglobin 32.9 pg (25.0-34.0); Mean Corpuscular Hgb Conc 34.2 g/dL (32.0-36.0); Mean Corpuscular Volume 96.1 fL (80.0-100.0); Mean Platelet Volume 11.1 fL (9.4-12.4); Platelet Count 194 K/uL (130-400); RDW Coefficient of Variation 14.1 % (11.5-14.5); RDW Standard Deviation 49.3 fL (36.4-46.3); Red Blood Count 3.07 M/uL (4.20-5.40); White Blood Count 7.69 K/ul (4.8-10.8)
[2024-02-19 08:01] LABS: Calcium 9.5 mg/dl (8.6-10.3); Creatinine Clr Calc Pharmacy 33.2 ml/min; Potassium 4.6 mmol/L (3.5-5.1)
--- NOTE | 2024-02-19 12:37 | Hospitalist Progress Note ---
Date of Service February 19, 2024 Assessment & Plan (1) Complicated UTI (urinary tract infection): (2) Paroxysmal atrial fibrillation: (3) Hypertension: (4) Hypothyroidism: (5) (HFpEF) heart failure with preserved ejection fraction: (6) Cat scratch: (7) Macular degeneration: Plan Ms. Carlson is an 84 y/o F that presented to the ED today via EMS With complaints of generalized weakness and aches along with shaking that began on the morning of the day of the admission. Urosepsis Complicated UTI: Recent admission 02/05/2025 with UTI received 5 days cefepime IV; Urinalysis suggestive of infection Blood culture is growing E.coli along with urine culture Continue Ceftriaxone. Repeat Blood cx tomorrow am PT OT ordered Cellulitis Noted to have scratch on her right forearm from a cat Mild ecchymosis surrounding the area Continue on ceftriaxone for the cellulitis. Monitor PAF: Chronic Takes amiodarone and metoprolol; continue Does not take any anticoagulation due to patient preference (documented in chart) Hypothyroidism: Chronic Takes levothyroxine; continue Chronic HFpEF: Chronic Most recent ECHO 04/2023: EF 55-60%, mild concentric LVH, normal RV function, moderate to severe MR, moderate AR Takes Lasix 40 mg daily; continue SIADH: Chronic Takes NaCl 1G daily; continue Macular Degeneration: Chronic Takes PreserVision and Systane; continue Disposition: PCP: Dr. Lizarraga CODE STATUS: DNR/DNI VTE prophylaxis: heparin Time spent evaluating patient, direct bedside care, chart review, placing orders, interpretation of diagnostic studies, discussion with consultants, patient, and family members, as well as other required patient management activities is 50 minutes Please note the above document was generated using voice recognition software. It may contain grammatical, syntax or spelling errors. Any formal questions or concerns about the content, text or information contained within the body of this dictation should be directly addressed to the provider for clarification Admission and Anticipated Discharge Date Admission Date: February 17, 2024 Subjective Patient seen and examined at bedside. Comfortable; not in distress. Denies fever, chills, chest pain, shortness of breath, abdominal pain or urinary symptoms. No significant overnight events Review of Systems Review of Systems: All systems reviewed & are unremarkable except as noted in Subjective Physical Exam Physical Exam: Constitutional: Alert oriented x 3; not in distress. Respiratory: normal respiratory effort, lungs clear to auscultation, no wheeze, rales, rhonchi. Normal insp/exp effort, no accessory muscle use Cardiovascular: RRR, systolic murmur +, no edema Vessels: no JVD or carotid bruit Chest: normal inspection of chest Abdomen: normal bowel sounds, soft, nontender, no hepatosplenomegaly Musculoskeletal: no cyanosis or clubbing, extremities motor strength 5/5 Skin: no rashes, warm and dry normal turgor Neurologic: PERRL, EOMI, accommodation nl, no face palsy, no dysarthria CN's II- XI intact bilaterally and moves all extremities Psychiatric: A+Ox3, euthymic affect Results & Data Results & Data Vital Signs (Past 12 Hours) Vital Signs Temp Pulse Pulse Resp BP Pulse Ox O2 Del Method 02/19/24 12:13 36.6 C 55 L 16 136/60 95 Room Air 02/19/24 09:00 Room Air 02/19/24 07:45 36.3 C L 63 16 148/67 H 95 Room Air 02/19/24 07:00 53 L 02/19/24 04:30 36.7 C 57 L 20 129/65 95 Room Air 02/19/24 00:38 36.8 C 55 L 20 122/54 L 94 Room Air
[2024-02-19] MEDS ORDERED: Nursing to Pharmacy Communication SCH (17:00)
--- NOTE | 2024-02-20 11:17 | Hospitalist Progress Note ---
Date of Service February 20, 2024 Assessment & Plan (1) Complicated UTI (urinary tract infection): (2) Paroxysmal atrial fibrillation: (3) Hypertension: (4) Hypothyroidism: (5) (HFpEF) heart failure with preserved ejection fraction: (6) Cat scratch: (7) Macular degeneration: Plan Ms. Carlson is an 84 y/o F that presented to the ED today via EMS With complaints of generalized weakness and aches along with shaking that began on the morning of the day of the admission. Urosepsis Complicated UTI: Recent admission 02/05/2025 with UTI received 5 days cefepime IV; Urinalysis suggestive of infection Blood culture is growing E.coli along with urine culture Continue Ceftriaxone. Repeat Blood culture pending Cellulitis Noted to have scratch on her right forearm from a cat Mild ecchymosis surrounding the area Continue on ceftriaxone for the cellulitis. Monitor PAF: Chronic Takes amiodarone and metoprolol; continue Does not take any anticoagulation due to patient preference (documented in [place]) Hypothyroidism: Chronic Takes levothyroxine; continue Chronic HFpEF: Chronic Most recent ECHO 04/2023: EF 55-60%, mild concentric LVH, normal RV function, moderate to severe MR, moderate AR Takes Lasix 40 mg daily; continue SIADH: Chronic Takes NaCl 1G daily; continue Macular Degeneration: Chronic Takes PreserVision and Systane; continue Disposition: PCP: Dr. Lizarraga CODE STATUS: DNR/DNI VTE prophylaxis: heparin Please note the above document was generated using voice recognition software. It may contain grammatical, syntax or spelling errors. Any formal questions or concerns about the content, text or information contained within the body of this dictation should be directly addressed to the provider for clarification Admission and Anticipated Discharge Date Admission Date: February 17, 2024 Subjective Patient seen and examined at bedside. She reports that she is feeling much better No chills/rigors chest pain or shortness of breath No diarrhea or abdominal pain Review of Systems Review of Systems: All systems reviewed & are unremarkable except as noted in Subjective Physical Exam Physical Exam: Constitutional: Alert oriented x 3; not in distress. Respiratory: normal respiratory effort, lungs clear to auscultation, no wheeze, rales, rhonchi. Normal insp/exp effort, no accessory muscle use Cardiovascular: RRR, systolic murmur +, no edema Vessels: no JVD or carotid bruit Chest: normal inspection of chest Abdomen: normal bowel sounds, soft, nontender, no hepatosplenomegaly Musculoskeletal: no cyanosis or clubbing, extremities motor strength 5/5 Skin: no rashes, warm and dry normal turgor Neurologic: PERRL, EOMI, accommodation nl, no face palsy, no dysarthria CN's II- XI intact bilaterally and moves all extremities Psychiatric: A+Ox3, euthymic affect Results & Data Results & Data Vital Signs (Past 12 Hours) Vital Signs Temp Pulse Pulse Resp BP Pulse Ox O2 Del Method 02/20/24 08:00 Room Air 02/20/24 07:50 37.1 C 61 18 144/65 H 94 Room Air 02/20/24 07:00 54 L 02/20/24 03:45 36.8 C 76 20 125/57 L 98 Room Air 02/19/24 23:35 36.6 C 59 L 20 131/65 95 Room Air
[2024-02-21] MEDS: INFLUENZA VACC TS2024-25(65y+)/PF (IIV3) 0.5mL Syr IM ONE (11:50)
[2024-02-21 11:56] VITALS: BP 109/72; PULSE 76; RESP 16; TEMP 97.7; O2SAT 95
--- NOTE | 2024-02-21 13:03 | Discharge Summary ---
Date of Service February 21, 2024 Admission HPI Per Admitting Provider Ms. Carlson is an 84 year old female that presented to the ED today via EMS With complaints of generalized weakness and aches along with shaking that began this morning. She was recently admitted on 01/27 to 02/01 with a UTI and treated with IV cefepime x 5 days. She did not go home on any oral antibiotics. Recent cultures 03/01 Citrobacter Freundii and on culture grew E. Faecais. She reports that her grandson visited yesterday and brought his cat. The cat did scratch her right forearm and there is visible ecchymosis and erythema around the scratch. Additional PMH includes: AF (not on any anticoagulation), recurrent complicated UTI's, HFpEF, SIADH, HTN, and depression. Mild leukocytosis 13.64 otherwise labs unremarkable. Bio fire negative, no transaminitis or troponin elevation. Clean-catch urine revealed slight LE and positive nitrates. Most recent ECHO 04/2023: EF 55-60%, mild concentric LVH, normal RV function, moderate to severe MR, moderate AR. Pt states that her shakes have improved and she is starting to feel better but does still feel achy. Pt denies NINA, dizziness, SOB. chest pain, palpitations, N/V/D, recent falls or trauma. Patient will be admitted for further evaluation and management of her complicated UTI and cat scratch. Will treat with IV cefepime plus oral Bactrim with addition of probiotic. Will add PT/OT given patient living alone at home to have on file for any short-term rehab in the future. Please see A/P for further details. Admission Exam Per Admitting Provider General Appearance: Thin, frail, elderly, no apparent distress Head: normocephalic, Atraumatic Eyes: normal inspection, EOMI Neck: supple, Trachea midline Respiratory/Chest: Normal breath sounds, CTA, No accessory muscle use Cardiovascular: S1, S2, +murmur Abdomen/GI:Soft, Non tender, Bowel sounds present Extremities/Musculoskeletal:normal inspection, 2+edema, + right upper extremity scratch ramirez with some erythema Neurologic/Psych:AAOX3, grossly no focal neurological deficits, decreased urine Skin: normal color, warm Principal Diagnosis Sepsis, POA Discharge Exam Constitutional: Alert oriented x 3; not in distress. Respiratory: normal respiratory effort, lungs clear to auscultation, no wheeze, rales, rhonchi. Normal insp/exp effort, no accessory muscle use Cardiovascular: RRR, , no edema Vessels: no JVD or carotid bruit Chest: normal inspection of chest Abdomen: normal bowel sounds, soft, nontender, no hepatosplenomegaly Musculoskeletal: no cyanosis or clubbing, extremities motor strength 5/5 Skin: no rashes, warm and dry normal turgor Neurologic: PERRL, EOMI, accommodation nl, no face palsy, no dysarthria CN's II- XI intact bilaterally and moves all extremities Psychiatric: A+Ox3, euthymic affect Discharge Data Allergies Allergy/AdvReac Type Severity Reaction Status Date / Time Quinolones Allergy Intermediate HIVES Verified 01/28/24 18:46 dabigatran etexilate Allergy Unknown ON Verified 01/28/24 18:46 [facility] metronidazole AdvReac Intermediate GI SYMPTOMS Verified 01/28/24 18:46 sulfamethoxazole AdvReac Mild GI SYMPTOMS Verified 01/28/24 18:46 trimethoprim AdvReac Mild GI SYMPTOMS Verified 01/28/24 18:46 Consultations 02/17/24 13:46 ED Decision to Admit Stat Hospital Course (1) Complicated UTI (urinary tract infection): (2) Paroxysmal atrial fibrillation: (3) Hypertension: (4) Hypothyroidism: (5) (HFpEF) heart failure with preserved ejection fraction: (6) Cat scratch: (7) Macular degeneration: Plan Ms. Carlson is an 84 y/o F that presented to the ED today via EMS With complaints of generalized weakness and aches along with shaking that began on the morning of the day of the admission. Recent admission 02/05/2025 with UTI received 5 days cefepime IV; Urinalysis suggestive of infection Blood culture grew E.coli along with urine culture Patient was treated with IV ceftriaxone during the hospitalization. She reported improvement in fever, chills and generalized weakness. Patient was discharged home on 5 more days of Augmentin. No other medication changes were done. Please note the above document was generated using voice recognition software. It may contain grammatical, syntax or spelling errors. Any formal questions or concerns about the content, text or information contained within the body of this dictation should be directly addressed to the provider for clarification Total Time Total Time Spent Total Time Spent (In Minutes): 35 Total Time Includes: Examination of the Patient, Discharge Planning, Medication Reconciliation, Communication With Other Providers and Other Discharge Plan Discharge Items Patient Disposition: Home - Self-Care Reason For Visit: UTI Discharge Diagnosis: Urosepsis Activity: Resume your previous activity Non-emergency contact: Primary Care Provider Call non-emergency contact if: you have any medication questions and your symptoms worsen Follow-up/Referrals: Kodi Lizarraga MD [Primary Care Provider] - 02/24/24 10:20 am (Date & Time 02/24/2024 10:20 AM Provider Kodi Lizarraga MD [facility] ) Diet: Regular Addtl Attending Provider Instructions: You you were admitted to the hospital due to urinary tract infection as well as bladder infection. You are treated with IV antibiotic during the hospitalization. You are prescribed Augmentin to be taken twice daily for 5 more days. An appointment with your primary care doctor will be made for you next week. Pending Studies at Discharge: No Stand-Alone Forms: My [facility] TapFwd, Smoking Cessation Medications and DC Order Prescriptions: New Advanced Probiotic 625 mg (10 billion cell) Capsule 2 cap PO DAILY Qty: 30 0RF amoxicillin-pot clavulanate 875-125 mg tablet 1 tab PO BID 5 Days Qty: 10 0RF Continued metoprolol succinate 50 mg tablet extended release 24 hr 50 mg PO BID Qty: 180 3RF amiodarone 200 mg tablet 200 mg PO QDD Qty: 90 3RF furosemide 40 mg tablet 40 mg PO QAM Qty: 90 3RF Patient Comments: was told yesterday to cut down to 20 mg sodium chloride 1,000 mg tablet,soluble 1,000 mg PO BID Qty: 180 3RF amlodipine 10 mg tablet 10 mg PO QDD Qty: 90 3RF aspirin 325 mg tablet 325 mg PO QAM Qty: 100 levothyroxine 75 mcg capsule 75 mcg PO DAILYBB diclofenac sodium 1 % gel 2 g TOPICAL QID PRN (Reason: Pain) Rx Instructions: Apply to right foot four times daily, as needed for pain. Multiple Vitamin-Minerals Tablet 1 tab PO DAILY buspirone 5 mg tablet 5 mg PO BID PRN (Reason: Other) cyanocobalamin (vitamin B-12) 1,000 mcg Tablet 1,000 mcg PO Q OTHER DAY magnesium oxide 500 mg magnesium Tablet 500 mg PO DAILY calcium carbonate-vitamin D3 [Calcium 600 + D(3)] 600 mg-10 mcg (400 unit) Tablet 1 tab PO DAILY potassium gluconate 600 mg (99 mg) Tablet 600 mg PO DAILY PreserVision AREDS-2 250-90-40-1 mg Capsule 1 tab PO BID Systane Ultra 0.4-0.3 % Drops 1 drp OPHTHALMIC (EYE) QID tobramycin 0.3 % drops 1 drp OPB QID Rx Instructions: Start Date 01/25/24 x7 day supply Discharge Orders: Discharge Order (Routine); Ordered 02/21/24 Ordered By: Elmer Gifford Admission Data Admit Date/Time: 02/17/24 13:50 Attending Provider: Elmer Gifford Admit Provider: David Pederson Primary Care Provider: Kodi Lizarraga Other Providers: David Pederson; [facility]; [facility] Other Interventions: Discharge Summary Assessment (RN) Last Done: 02/21/24 11:57
== END 2024-02-21 13:23 | disposition home health service (06) | DRG 872 ==
LOC: ED 12:00 → SUATTDRO 13:50 → 2N 13:50

== ENCOUNTER 2024-05-02 09:30 | Inpatient (IN) ==
--- NOTE | 2024-05-02 09:42 | Emergency Department Note ---
Impression & Plan Acute exacerbation of CHF (congestive heart failure), Acute dyspnea, Acute hypoxic respiratory failure, Elevated brain natriuretic peptide (BNP) level, Pulmonary edema ED Provider Note HISTORY OF PRESENT ILLNESS: Patient is an 84-year-old female presenting with shortness of breath and chest pain. Patient reports that yesterday she had some substernal chest pain. The [facility] health team came and evaluated the patient and she states that "the pain went away and everything checked out so I stayed home." She states that throughout the night she developed a nonproductive cough and felt very short of breath so she called 911 this morning, given that she was still having symptoms. Denies any current chest pain. She reports that a few weeks ago she noticed some red spots under her right breast and was diagnosed with shingles. She reports she was on Valtrex and completed the course. She was started on gabapentin for post shingles pain, but was taken off of this medication yesterday by home health secondary to them thinking it was causing her leg swelling and shortness of breath. She denies any fevers. Denies any nausea or vomiting. On EMS arrival, the patient was reportedly hypoxic to 85% on room air and placed on 2 L nasal cannula. ROS: as above PHYSICAL EXAM: Constitutional: Patient appears in no acute distress. HENT: Head: Normocephalic and atraumatic. Eyes: EOMI, PERRL Mouth/Throat: Mucous membranes moist. Neck: Trachea midline. Neck supple. Cardiovascular: RRR, No murmurs, rubs or gallops. Intact distal pulses. Pulmonary/Chest: No respiratory distress. Breath sounds clear and equal bilaterally. No wheezes or rales. No obvious rash under the right breast. Abdominal: Abdomen soft, no tenderness, rebound or guarding. Musculoskeletal: No tenderness or deformity noted. +2 pitting edema of bilateral lower extremities extending to mid shins. Skin: Warm and dry. No rash, erythema, pallor or cyanosis Psychiatric: Appropriate mood and affect for situation. Neurological: Alert and keenly responsive. CN II-XII grossly intact, moving all extremities equally and fully. MDM: - Vitals signs showed hypertension and hypoxia. Patient was placed on 2 L nasal cannula. - History obtained via patient. History as above. - Chronic conditions affecting care: HTN; hypothyroidism; CKD; aortic insufficiency; mitral regurgitation; paroxysmal Afib - Differential diagnoses include, but are not limited to: Congestive heart failure; acute coronary syndrome; COPD/asthma exacerbation; pulmonary edema; pulmonary embolism; pneumonia; pneumothorax; viral syndrome - Order placed for continuous cardiac monitoring. At this time, monitor showed rate of 70 bpm with normal sinus rhythm, per my interpretation. - External medical records reviewed. Discharge summary dated 02/21/2024 was reviewed. Patient was admitted that time for sepsis. - EKG interpreted by myself showed normal sinus rhythm. Rate 66 bpm. QT 474. No acute ischemic changes. Noted to have interventricular block. - Laboratory workup interpreted by myself showed normal WBC; chronic anemia (Hgb 9.8); normal PT/INR; slight hyponatremia (Na 135); normal troponin; elevated BNP (652) - CXR shows pulmonary edema, per my interpretation. - Viral respiratory panel negative - Patient does not appear to be on a diuretic based on her medication list. She was given 40 mg IV Lasix given her fluid overload status and new oxygen requirement. - Discussion was had with caseworker intake about patient's case and need for admission - Hospitalist consulted for admission - [facility] ASSESSMENT AND PLAN: Diagnosis: acute dyspnea; acute CHF exacerbation; acute hypxoia; pulmonary edema; elevated BNP Plan: Admit Past Med/Surg History Problem List (Updated 05/02/24 @ 11:23 by Cathryn Evans MD) Pulmonary edema (Acute) Elevated brain natriuretic peptide (BNP) level (Acute) Acute hypoxic respiratory failure (Acute) Acute dyspnea (Acute) Acute exacerbation of CHF (congestive heart failure) (Acute) Generalized weakness (Acute) Macular degeneration Cat scratch High serum calcium (Acute) Acute hyponatremia (Acute) UTI (urinary tract infection) (Acute) Complicated UTI (urinary tract infection) Chronic kidney disease, stage 3a Hyponatremia with decreased serum osmolality CKD (chronic kidney disease), stage III Paroxysmal atrial fibrillation Hypothyroidism Hypertension (HFpEF) heart failure with preserved ejection fraction Aortic insufficiency Mitral regurgitation Bilateral pleural effusion (Acute) On amiodarone therapy Anemia (Acute) Bilateral pneumonia Abrasion of right elbow (Acute) Contusion of right hip (Acute) Elevated blood pressure, situational (Acute) Infection of wound hematoma Medical History Shortness of breath Hypoxic Acute respiratory failure with hypoxia SOB (shortness of breath) Mitral regurgitation Chronic heart failure with preserved ejection fraction Atypical chest pain GERD (gastroesophageal reflux disease) Pneumonia Chest pain Chest pain Diverticulitis Afib Surgical History Hx of cholecystectomy Hx of hysterectomy Family History Mother Stroke Social History Smoking Status: Never smoker Second Hand Exposure: No; Do You Dip or Chew Tobacco: No; Hx Alcohol Use: No Hx Substance Use: No Preferred Language: Kyrgyz Communication Ability: Effective Environmental Protection Officer Required: No Beliefs That Will Affect Care: None marital status: Current Living Situation: Alone Current Living Situation Comment: Has an aide who comes over current occupational status: retired How many Children do You have: 3 Feels Safe at Home: Yes Assistive Devices: Walker Allergies Allergies Allergy/AdvReac Type Severity Reaction Status Date / Time Quinolones Allergy Intermediate HIVES Verified 03/10/24 10:07 dabigatran etexilate Allergy Unknown ON Verified 03/10/24 10:07 [facility] MED LIST metronidazole AdvReac Intermediate GI SYMPTOMS Verified 03/10/24 10:07 sulfamethoxazole AdvReac Mild GI SYMPTOMS Verified 03/10/24 10:07 trimethoprim AdvReac Mild GI SYMPTOMS Verified 03/10/24 10:07 Home Meds Home Medications Medication Instructions Recorded Confirmed aspirin 325 mg tablet 325 mg PO QAM #100 tabs 01/28/19 03/10/24 levothyroxine 75 mcg capsule 75 mcg PO DAILYBB 03/14/19 03/10/24 diclofenac sodium 1 % topical gel 2 g topical QID PRN Pain 05/27/21 03/10/24 buspirone 5 mg tablet 5 mg PO BID PRN Other 07/18/22 03/10/24 cyanocobalamin (vitamin B-12) 1,000 mcg PO Q OTHER DAY 07/18/22 03/10/24 1,000 mcg tablet multivitamin with minerals 1 tab PO DAILY 07/18/22 03/10/24 (Multiple Vitamin-Minerals tablet) calcium 600 mg (as 1 tab PO DAILY 11/27/23 03/10/24 carbonate)-vitamin D3 10 mcg (400 unit) tablet (Calcium 600 + D(3)) magnesium oxide 500 mg PO DAILY 11/27/23 03/10/24 peg 400-propylene glycol 0.4 %-0.3 1 drp ophthalmic (eye) QID 11/27/23 03/10/24 % eye drops (Systane Ultra) potassium gluconate 600 mg (99 mg) 600 mg PO DAILY 11/27/23 03/10/24 tablet vit C 250 mg-vit E 90 mg-zinc 40 1 tab PO BID 11/27/23 03/10/24 mg-copper 1 ly-lwnyvz-wygwdm capsule (PreserVision AREDS-2) tobramycin 0.3 % eye drops 1 drp OPB QID 01/28/24 03/10/24 Previous Rx's Medication Instructions Recorded amlodipine 10 mg tablet 10 mg PO QDD #90 tabs 03/21/20 amiodarone 200 mg tablet 200 mg PO QDD #90 tabs 05/26/23 furosemide 40 mg tablet 40 mg PO QAM #90 tabs 06/11/23 sodium chloride 1,000 mg soluble 1,000 mg PO BID #180 tabs 07/07/23 tablet L.acidop,casei,lactis,rham-B.lact,nicole 2 cap PO DAILY #30 caps 02/21/24 625 mg (10 billion cell) capsule (Advanced Probiotic) metoprolol succinate 50 mg 50 mg PO BID #180 tabs 04/11/24 tablet,extended release 24 hr Results & Data (ED) Vital Signs Vital Signs - 24 hr 05/02/24 09:39 05/02/24 09:43 05/02/24 09:46 Temperature 36.7 C Temperature Source Oral Pulse Rate 66 64 67 Respiratory Rate 27 H 20 Respiratory Effort / Characteristics Non-Labored Spontaneous Respiratory Depth Normal Respiratory Pattern Regular Blood Pressure 143/87 H Blood Pressure Mean 105 Blood Pressure Position Lying Pulse Oximetry 98 89 L Oxygen Delivery Method Nasal Cannula Room Air Oxygen Flow Rate 2 Sepsis Recent Fever Within 48 Hours No Sepsis New/Unexplained Change in Mental Status N/A Sepsis Action Taken by Nursing No Action Required Oxygen Flow Rate - Titration Pulse Oximetry Post Tiitration 05/02/24 09:46 05/02/24 09:54 Temperature Temperature Source Pulse Rate Respiratory Rate Respiratory Effort / Characteristics Respiratory Depth Respiratory Pattern Blood Pressure Blood Pressure Mean Blood Pressure Position Pulse Oximetry 89 L 99 Oxygen Delivery Method Room Air Nasal Cannula Oxygen Flow Rate 2 Sepsis Recent Fever Within 48 Hours Sepsis New/Unexplained Change in Mental Status Sepsis Action Taken by Nursing Oxygen Flow Rate - Titration 2 Pulse Oximetry Post Tiitration 97 Laboratory Data 05/02/24 09:45 05/02/24 09:45 Lab Results 05/02/24 05/02/24 Range/Units 05:45 09:45 WBC 9.53 (4.8-10.8) K/ul RBC 3.12 L (4.20-5.40) M/uL Hgb 9.8 L (12.0-16.0) g/dl Hct 30.0 L (37.0-47.0) % MCV 96.2 (80.0-100.0) fL MCH 31.4 (25.0-34.0) pg MCHC 32.7 (32.0-36.0) g/dL RDW Std Deviation 49.7 H (36.4-46.3) fL RDW Coeff of Ursula 14.3 (11.5-14.5) % Plt Count 312 (130-400) K/uL MPV 10.1 (9.4-12.4) fL Immature Gran % (Auto) 0.8 % Neut % (Auto) 68.0 % Lymph % (Auto) 12.0 % [place] % (Auto) 14.2 % Eos % (Auto) 4.2 % Baso % (Auto) 0.8 % Neut # (Auto) 6.48 (1.40-6.50) K/uL Lymph # (Auto) 1.14 L (1.20-3.40) K/uL [place] # (Auto) 1.35 H (0.11-0.59) K/uL Eos # (Auto) 0.40 (0.00-0.50) K/uL Baso # (Auto) 0.08 (0.00-0.20) K/uL Immature Gran # (Auto) 0.08 (0.01-0.20) K/uL PT 10.5 (9.0-12.0) Seconds INR 1.0 (0.9-1.1) Sodium 135 L (136-145) mmol/L Potassium 3.9 (3.5-5.1) mmol/L Chloride 101 (98-107) mmol/L Carbon Dioxide 26 (21-32) mmol/L Anion Gap 8 (3-11) BUN 24 H (6-23) mg/dl Creatinine 1.03 (0.6-1.2) mg/dl Est Cr Clr Drug Dosing 33.9 ml/min eGFR 52.95 BUN/Creatinine Ratio 23.3 H (10-20) Glucose 110 H (70-99(Fasting)) mg/dl Calcium 9.6 (8.6-10.3) mg/dl Magnesium 2.1 (1.7-2.4) mg/dl Total Bilirubin 0.6 (0.2-1.0) mg/dl AST 17 (13-39) U/L ALT 9 (7-52) U/L Alkaline Phosphatase 87 (34-104) U/L Troponin I High Sens 9.2 (0-14) pg/ml B-Natriuretic Peptide 652 H (0-100) pg/ml Total Protein 8.1 (6.0-8.3) gm/dl Albumin 4.0 (3.4-5.0) gm/dl Globulin 4.1 H (2.5-4.0) gm/dl Albumin/Globulin Ratio 1.0 (0.9-2) Adenovirus (PCR) Not Detected (NotDetected) B. pertussis DNA (PCR) Not Detected (NotDetected) B.parapertussis DNA PCR Not Detected (NotDetected) C. pneumoniae DNA (PCR) Not Detected (NotDetected) Coronavirus OC43 (PCR) Not Detected (NotDetected) Coronavirus HKU1 (PCR) Not Detected (NotDetected) Coronavirus 229E (PCR) Not Detected (NotDetected) SARS-CoV-2 (PCR) Not Detected (NotDetected) Coronavirus NL63 (PCR) Not Detected (NotDetected) Human Metapneumovir PCR Not Detected (NotDetected) Influenza Type A (PCR) Not Detected (NotDetected) Influenza Type B (PCR) Not Detected (NotDetected) M. pneumoniae (PCR) Not Detected (NotDetected) Parainfluenza 1 (PCR) Not Detected (NotDetected) Parainfluenza 2 (PCR) Not Detected (NotDetected) Parainfluenza 3 (PCR) Not Detected (NotDetected) Parainfluenza 4 (PCR) Not Detected (NotDetected) RSV (PCR) Not Detected (NotDetected) Entero/Rhino (PCR) Not Detected (NotDetected) Administered Medications Discontinued Medications Furosemide (Furosemide 40 Mg/4 Ml Vial) 40 mg IV ONE ONE Stop: 05/02/24 10:51 Last Admin: 05/02/24 11:18 Dose: 40 mg Documented By: TNK Imaging Data Radiologist's Impression: Chest X-Ray 05/02/24 09:39 XR chest 1V portable CLINICAL HISTORY: Dyspnea TECHNIQUE: Single frontal radiograph of the chest was obtained. Comparison: Comparison is made to chest radiograph 02/17/2024 FINDINGS: No lines and tubes are seen. Calcified aortic knob is seen. Prominence and cephalization of the vasculature is seen. Small bilateral pleural effusions are seen. IMPRESSION: 1. Cardiomegaly and mild pulmonary edema. 2. Small bilateral pleural effusions. ACT 112: Negative or not required by law. Electronically signed by: Claudio Womack M.D. 05/02/2024 10:46 AM Discharge Plan Visit Data Chief Complaint: Shortness of Breath/Dyspnea Stated Complaint: SOB, CHEST PAIN, HAS SHINGLES ED Provider: Cathryn Evans Discharge Problem: Acute exacerbation of CHF (congestive heart failure), Acute dyspnea, Acute hypoxic respiratory failure, Elevated brain natriuretic peptide (BNP) level, Pulmonary edema Forms Stand Alone Forms: My [facility] Prescriptions Prescriptions: No Action amiodarone 200 mg tablet 200 mg PO QDD Qty: 90 3RF furosemide 40 mg tablet 40 mg PO QAM Qty: 90 3RF Patient Comments: was told yesterday to cut down to 20 mg sodium chloride 1,000 mg tablet,soluble 1,000 mg PO BID Qty: 180 3RF metoprolol succinate 50 mg tablet extended release 24 hr 50 mg PO BID Qty: 180 3RF amlodipine 10 mg tablet 10 mg PO QDD Qty: 90 3RF aspirin 325 mg tablet 325 mg PO QAM Qty: 100 levothyroxine 75 mcg capsule 75 mcg PO DAILYBB diclofenac sodium 1 % gel 2 g TOPICAL QID PRN (Reason: Pain) Rx Instructions: Apply to right foot four times daily, as needed for pain. Multiple Vitamin-Minerals Tablet 1 tab PO DAILY buspirone 5 mg tablet 5 mg PO BID PRN (Reason: Other) cyanocobalamin (vitamin B-12) 1,000 mcg Tablet 1,000 mcg PO Q OTHER DAY magnesium oxide 500 mg magnesium Tablet 500 mg PO DAILY calcium carbonate-vitamin D3 [Calcium 600 + D(3)] 600 mg-10 mcg (400 unit) Tablet 1 tab PO DAILY potassium gluconate 600 mg (99 mg) Tablet 600 mg PO DAILY PreserVision AREDS-2 250-90-40-1 mg Capsule 1 tab PO BID Systane Ultra 0.4-0.3 % Drops 1 drp OPHTHALMIC (EYE) QID tobramycin 0.3 % drops 1 drp OPB QID Rx Instructions: Start Date 01/25/24 x7 day supply Advanced Probiotic 625 mg (10 billion cell) Capsule 2 cap PO DAILY Qty: 30 0RF Referrals Referrals: Kodi Lizarraga MD [Primary Care Provider] -
[2024-05-02 10:17] LABS: Basophils # (auto) 0.08 K/uL (0.00-0.20); Basophils % (auto) 0.8 %; Eosinophils % (auto) 4.2 %; Hemoglobin 9.8 g/dl (12.0-16.0); Immature Granulocytes # (auto) 0.08 K/uL (0.01-0.20); Immature Granulocytes % (auto) 0.8 %; Lymphocytes # (auto) 1.14 K/uL (1.20-3.40); Mean Corpuscular Hemoglobin 31.4 pg (25.0-34.0); Mean Corpuscular Hgb Conc 32.7 g/dL (32.0-36.0); Mean Corpuscular Volume 96.2 fL (80.0-100.0); Mean Platelet Volume 10.1 fL (9.4-12.4); Monocytes # (auto) 1.35 K/uL (0.11-0.59); Monocytes % (auto) 14.2 %; Neutrophils # (auto) 6.48 K/uL (1.40-6.50); Platelet Count 312 K/uL (130-400); RDW Coefficient of Variation 14.3 % (11.5-14.5); RDW Standard Deviation 49.7 fL (36.4-46.3); Red Blood Count 3.12 M/uL (4.20-5.40); White Blood Count 9.53 K/ul (4.8-10.8)
[2024-05-02 10:33] LABS: BUN Creatinine Ratio 23.3 (10-20); Bilirubin,Total 0.6 mg/dl (0.2-1.0); Calcium 9.6 mg/dl (8.6-10.3); Creatinine Clr Calc Pharmacy 33.9 ml/min; Globulin 4.1 gm/dl (2.5-4.0); Magnesium 2.1 mg/dl (1.7-2.4); Potassium 3.9 mmol/L (3.5-5.1); Total Protein 8.1 gm/dl (6.0-8.3)
[2024-05-02 10:39] LABS: Troponin I High Sensitivity 9.2 pg/ml (0-14)
--- NOTE | 2024-05-02 10:47 | XRay Report ---
XR chest 1V portable CLINICAL HISTORY: Dyspnea TECHNIQUE: Single frontal radiograph of the chest was obtained. Comparison: Comparison is made to chest radiograph 02/17/2024 FINDINGS: No lines and tubes are seen. Calcified aortic knob is seen. Prominence and cephalization of the vascu lature is seen. Small bilateral pleural effusions are seen. IMPRESSION: 1. Cardiomegaly and mild pulmonary edema. 2. Small bilateral pleural effusions. ACT 112: Negative or not required by law. Electronically signed by: Claudio Womack M.D. 05/02/2024 10:46 AM
[2024-05-02 10:52] LABS: Prothrombin Time 10.5 Seconds (9.0-12.0)
[2024-05-02] MEDS: FUROSEMIDE 40 MG/4 ML VIAL IV ONE (11:18)
[2024-05-02 11:19] LABS: Adenovirus PCR Not Detected (NotDetected); Bordetella parapertussis PCR Not Detected (NotDetected); Bordetella pertussis PCR Not Detected (NotDetected); Chlamydia pneumoniae PCR Not Detected (NotDetected); Coronavirus 229E PCR Not Detected (NotDetected); Coronavirus CoV-2 (COVID19)PCR Not Detected (NotDetected); Coronavirus HKU1 PCR Not Detected (NotDetected); Coronavirus NL63 PCR Not Detected (NotDetected); Coronavirus OC43PCR Not Detected (NotDetected); Human Metapneumovirus PCR Not Detected (NotDetected); Influenza A PCR Not Detected (NotDetected); Influenza B PCR Not Detected (NotDetected); Mycoplasma pneumoniae PCR Not Detected (NotDetected); Parainfluenza Virus 1 PCR Not Detected (NotDetected); Parainfluenza Virus 2 PCR Not Detected (NotDetected); Parainfluenza Virus 3 PCR Not Detected (NotDetected); Parainfluenza Virus 4 PCR Not Detected (NotDetected); Respiratory Syncytial VirusPCR Not Detected (NotDetected); Rhinovirus/Enterovirus PCR Not Detected (NotDetected)
--- NOTE | 2024-05-02 11:35 | History & Physical Report ---
Date of Service May 02, 2024 Assessment & Plan (1) Acute exacerbation of CHF (congestive heart failure): Plan: This is an 84 y/o female with PAF, chronic HFpEF, LBBB, moderate to severe MR, moderate AI, CKD3, hypothyroidism, SIADH, GERD, and other history as outlined below who presents to the ED with chest pain and MASSEY. Work-up in the ED consistent with acute on chronic HFpEF despite reported compliance with home regimen including furosemide 40 mg daily. Requiring 2L of O2 to maintain sats in the ED, which is new for her. Received IV furosemide 40 mg x 1 dose in the ED - Admit to med telemetry - Check ECHO - IV furosemide 40 mg BID - Consult cardiology for additional recommendations - Supplemental O2 as needed - Daily weights, monitor Is and Os (2) Acute hypoxic respiratory failure: Plan: See plan for #1 (3) CKD (chronic kidney disease), stage III: Plan: chronic, stable Monitor labs with diuresis - recheck BMP in the AM (4) Paroxysmal atrial fibrillation: Plan: Chronic, stable Continue amiodarone, beta brett Not on AC due to falls and prior GI bleeding (5) Hypothyroidism: Plan: Chronic, stable Continue levothyroxine (6) Hypertension: Plan: Chronic, stable Continue home regimen (7) Hyponatremia with decreased serum osmolality: Plan: Chronic, stable Continue sodium chloride tablets Plan Pt seen and reviewed with collaborating physician, Dr. Chapman. Plan of care discussed and as outlined above. Code status: DNR/DNI DVT prophylaxis: subQ heparin Tana Barker PA-C History of Present Illness Chief Complaint: chest pain, shortness of breath on exertion Primary Care Provider: Kodi Lizarraga MD This is an 84 y/o female with PAF, chronic HFpEF, LBBB, moderate to severe MR, moderate AI, CKD3, hypothyroidism, SIADH, GERD, and other history as outlined below who presents to the ED with chest pain and MASSEY. Pt's Epic chart was extensively reviewed including [facility] notes. Pt was treated for shingles earlier this month with a seven day course of Valtrex, which she reportedly completed. More recently started on gabapentin for presumed neuropathic pain but this was discontinued yesterday due to concern that it was causing hypoxia at home as pt's home pulse ox was reading in the upper 80s to low 90s. Last night, she felt fine when she went to bed other than a dry cough. She does report intermittent issues with shortness of breath over the last several days. She denies fevers, chills, N/V/D, abdominal pain, or urinary issues. Overnight, she became more short of breath and developed intermittent chest pain. Shortness of breath is worse with exertion. Allergies Allergy/AdvReac Type Severity Reaction Status Date / Time Quinolones Allergy Intermediate HIVES Verified 03/10/24 10:07 dabigatran etexilate Allergy Unknown ON Verified 03/10/24 10:07 [facility] metronidazole AdvReac Intermediate GI SYMPTOMS Verified 03/10/24 10:07 sulfamethoxazole AdvReac Mild GI SYMPTOMS Verified 03/10/24 10:07 trimethoprim AdvReac Mild GI SYMPTOMS Verified 03/10/24 10:07 Home Medications Medication Instructions Recorded Confirmed Type aspirin 325 mg tablet 325 mg PO QAM #100 tabs 01/28/19 05/02/24 History levothyroxine 75 mcg capsule 75 mcg PO DAILYBB 03/14/19 05/02/24 History amlodipine 10 mg tablet 10 mg PO QDD #90 tabs 03/21/20 05/02/24 Rx diclofenac sodium 1 % topical gel 2 g topical QID PRN Pain 05/27/21 05/02/24 History buspirone 5 mg tablet 5 mg PO BID PRN Anxiety 07/18/22 05/02/24 History cyanocobalamin (vitamin B-12) 1,000 mcg PO Q OTHER DAY 07/18/22 05/02/24 History 1,000 mcg tablet multivitamin with minerals 1 tab PO DAILY 07/18/22 05/02/24 History (Multiple Vitamin-Minerals tablet) amiodarone 200 mg tablet 200 mg PO QDD #90 tabs 05/26/23 05/02/24 Rx furosemide 40 mg tablet 40 mg PO QAM #90 tabs 06/11/23 05/02/24 Rx sodium chloride 1,000 mg soluble 1,000 mg PO BID #180 tabs 07/07/23 05/02/24 Rx tablet calcium 600 mg (as 1 tab PO DAILY 11/27/23 05/02/24 History carbonate)-vitamin D3 10 mcg (400 unit) tablet (Calcium 600 + D(3)) magnesium oxide 500 mg PO DAILY 11/27/23 05/02/24 History peg 400-propylene glycol 0.4 %-0.3 1 drp ophthalmic (eye) QID 11/27/23 05/02/24 History % eye drops (Systane Ultra) potassium gluconate 600 mg (99 mg) 600 mg PO DAILY 11/27/23 05/02/24 History tablet vit C 250 mg-vit E 90 mg-zinc 40 2 tab PO DAILY 11/27/23 05/02/24 History mg-copper 1 [id number] capsule (PreserVision AREDS-2) L.acidop,casei,lactis,rham-B.lact,nicole 2 cap PO DAILY #30 caps 02/21/24 05/02/24 Rx 625 mg (10 billion cell) capsule (Advanced Probiotic) metoprolol succinate 50 mg 50 mg PO BID #180 tabs 04/11/24 05/02/24 Rx tablet,extended release 24 hr Past Med/Surg History Problem List (Updated 05/02/24 @ 19:11 by Malena Barker PA-C) Pulmonary edema (Acute) Elevated brain natriuretic peptide (BNP) level (Acute) Acute hypoxic respiratory failure (Acute) Acute dyspnea (Acute) Acute exacerbation of CHF (congestive heart failure) (Acute) Generalized weakness (Acute) Macular degeneration Cat scratch High serum calcium (Acute) Acute hyponatremia (Acute) UTI (urinary tract infection) (Acute) Complicated UTI (urinary tract infection) Chronic kidney disease, stage 3a Hyponatremia with decreased serum osmolality CKD (chronic kidney disease), stage III Paroxysmal atrial fibrillation Hypothyroidism Hypertension (HFpEF) heart failure with preserved ejection fraction Aortic insufficiency Mitral regurgitation Bilateral pleural effusion (Acute) On amiodarone therapy Anemia (Acute) Bilateral pneumonia Abrasion of right elbow (Acute) Contusion of right hip (Acute) Elevated blood pressure, situational (Acute) Infection of wound hematoma Medical History (Updated 05/02/24 @ 19:11 by Malena Barker PA-C) Shortness of breath Hypoxic Acute respiratory failure with hypoxia SOB (shortness of breath) Mitral regurgitation Chronic heart failure with preserved ejection fraction Atypical chest pain GERD (gastroesophageal reflux disease) Pneumonia Chest pain Chest pain Diverticulitis Afib Surgical History (Updated 05/02/24 @ 11:35 by Malena Barker PA-C) History of umbilical hernia repair incarcerated - unknown age Hx of hernia repair right inguinal 2013 Hx of cholecystectomy Hx of hysterectomy Family History Mother Stroke Social History Smoking Status: Never smoker Second Hand Exposure: No; Do You Dip or Chew Tobacco: No; Hx Alcohol Use: No Hx Substance Use: No Preferred Language: Vietnamese Communication Ability: Effective 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 Beliefs That Will Affect Care: None marital status: Current Living Situation: Alone Current Living Situation Comment: Has an aide who comes over current occupational status: retired How many Children do You have: 3 Feels Safe at Home: Yes Safety Concerns: Feels Safe At This Time Assistive Devices: Denture - Upper, Denture - Lower, Glasses and Walker Assistive Devices Comment: pt has dentures and glasses with pt Review of Systems Review of Systems: All systems reviewed & are unremarkable except as noted in Subjective Physical Exam Physical Exam: Please see physician note for details of the physical exam. Results & Data Results & Data Vital Signs (Past 12 Hours) Vital Signs Temp Pulse Resp BP Pulse Ox O2 Del Method O2 Flow Rate 05/02/24 11:03 62 28 H 99 Nasal Cannula 2 05/02/24 11:00 137/60 05/02/24 10:57 64 20 98 05/02/24 10:33 61 20 99 05/02/24 10:30 135/56 L 05/02/24 10:21 63 27 H 97 05/02/24 10:00 61 19 99 05/02/24 10:00 130/55 L 05/02/24 09:54 99 Nasal Cannula 2 05/02/24 09:46 89 L Room Air 05/02/24 09:46 36.7 C 67 20 143/87 H 89 L Room Air 05/02/24 09:43 64 05/02/24 09:39 81 21 90 05/02/24 09:39 66 27 H 98 Nasal Cannula 2 05/02/24 09:36 143/87 H Laboratory Results Lab Results 05/02/24 05/02/24 Range/Units 05:45 09:45 WBC 9.53 (4.8-10.8) K/ul RBC 3.12 L (4.20-5.40) M/uL Hgb 9.8 L (12.0-16.0) g/dl Hct 30.0 L (37.0-47.0) % MCV 96.2 (80.0-100.0) fL MCH 31.4 (25.0-34.0) pg MCHC 32.7 (32.0-36.0) g/dL RDW Std Deviation 49.7 H (36.4-46.3) fL RDW Coeff of Ursula 14.3 (11.5-14.5) % Plt Count 312 (130-400) K/uL MPV 10.1 (9.4-12.4) fL Immature Gran % (Auto) 0.8 % Neut % (Auto) 68.0 % Lymph % (Auto) 12.0 % [place] % (Auto) 14.2 % Eos % (Auto) 4.2 % Baso % (Auto) 0.8 % Neut # (Auto) 6.48 (1.40-6.50) K/uL Lymph # (Auto) 1.14 L (1.20-3.40) K/uL [place] # (Auto) 1.35 H (0.11-0.59) K/uL Eos # (Auto) 0.40 (0.00-0.50) K/uL Baso # (Auto) 0.08 (0.00-0.20) K/uL Immature Gran # (Auto) 0.08 (0.01-0.20) K/uL PT 10.5 (9.0-12.0) Seconds INR 1.0 (0.9-1.1) Sodium 135 L (136-145) mmol/L Potassium 3.9 (3.5-5.1) mmol/L Chloride 101 (98-107) mmol/L Carbon Dioxide 26 (21-32) mmol/L Anion Gap 8 (3-11) BUN 24 H (6-23) mg/dl Creatinine 1.03 (0.6-1.2) mg/dl Est Cr Clr Drug Dosing 33.9 ml/min eGFR 52.95 BUN/Creatinine Ratio 23.3 H (10-20) Glucose 110 H (70-99(Fasting)) mg/dl Calcium 9.6 (8.6-10.3) mg/dl Magnesium 2.1 (1.7-2.4) mg/dl Total Bilirubin 0.6 (0.2-1.0) mg/dl AST 17 (13-39) U/L ALT 9 (7-52) U/L Alkaline Phosphatase 87 (34-104) U/L Troponin I High Sens 9.2 (0-14) pg/ml B-Natriuretic Peptide 652 H (0-100) pg/ml Total Protein 8.1 (6.0-8.3) gm/dl Albumin 4.0 (3.4-5.0) gm/dl Globulin 4.1 H (2.5-4.0) gm/dl Albumin/Globulin Ratio 1.0 (0.9-2) Adenovirus (PCR) Not Detected (NotDetected) B. pertussis DNA (PCR) Not Detected (NotDetected) B.parapertussis DNA PCR Not Detected (NotDetected) C. pneumoniae DNA (PCR) Not Detected (NotDetected) Coronavirus OC43 (PCR) Not Detected (NotDetected) Coronavirus HKU1 (PCR) Not Detected (NotDetected) Coronavirus 229E (PCR) Not Detected (NotDetected) SARS-CoV-2 (PCR) Not Detected (NotDetected) Coronavirus NL63 (PCR) Not Detected (NotDetected) Human Metapneumovir PCR Not Detected (NotDetected) Influenza Type A (PCR) Not Detected (NotDetected) Influenza Type B (PCR) Not Detected (NotDetected) M. pneumoniae (PCR) Not Detected (NotDetected) Parainfluenza 1 (PCR) Not Detected (NotDetected) Parainfluenza 2 (PCR) Not Detected (NotDetected) Parainfluenza 3 (PCR) Not Detected (NotDetected) Parainfluenza 4 (PCR) Not Detected (NotDetected) RSV (PCR) Not Detected (NotDetected) Entero/Rhino (PCR) Not Detected (NotDetected) Diagnostic Findings Chest X-Ray 05/02/24 09:39 XR chest 1V portable CLINICAL HISTORY: Dyspnea TECHNIQUE: Single frontal radiograph of the chest was obtained. Comparison: Comparison is made to chest radiograph 02/17/2024 FINDINGS: No lines and tubes are seen. Calcified aortic knob is seen. Prominence and cephalization of the vasculature is seen. Small bilateral pleural effusions are seen. IMPRESSION: 1. Cardiomegaly and mild pulmonary edema. 2. Small bilateral pleural effusions. ACT 112: Negative or not required by law. Electronically signed by: Claudio Womack M.D. 05/02/2024 10:46 AM Medications Administered Discontinued Medications Furosemide (Furosemide 40 Mg/4 Ml Vial) 40 mg IV ONE ONE Stop: 05/02/24 10:51 Last Admin: 05/02/24 11:18 Dose: 40 mg Documented By: TNK Supervising Physician Co-Signing Physician Notes Patient seen and examined Reports SOB over the past few days, worsened last night with cough Noted to be hypoxic on presentation. Not on oxygen at home Denied chest pain Recently treated for shingles. Reports rash is healing and no longer painful On exam, General: Elderly woman in no acute distress Eyes: PERRL, conjunctivae normal, not pale, anicteric sclerae, EOM intact bilaterally ENMT: +Hearing deficits Respiratory: On nasal cannula, +Basilar crackles Cardiovascular: RRR s1 s2 Gastrointestinal (Abdomen): Abdomen is not distended, soft, non-tender to palpation, no guarding, no palpable hepatosplenomegaly, normal bowel sounds Musculoskeletal: Bilateral pitting pedal edema Skin: Rash under right breast, healing Neurologic: No focal weakness, sensation grossly intact Psychiatric: Alert and oriented x 3, euthymic affect Labs notable for Hb of 9.8, BNP 652 CXR showed pulm edema and small b/l pleural effusion Acute on chronic diastolic heart failure IV lasix 40mg BID Monitor I/O, Daily weight Get TTE Tele monitor Continue home po potassium and monitor electrolytes Card consult I spent a total of 45 minutes coordinating, documenting and providing care for this patient excluding time spent in performance of separately billed services (1) Acute exacerbation of CHF (congestive heart failure) Heart failure type: diastolic Qualified Code(s): I50.33 - Acute on chronic diastolic (congestive) heart failure (3) CKD (chronic kidney disease), stage III Chronic kidney disease stage 3 subtype: unspecified whether 3a or 3b Qualified Code(s): N18.30 - Chronic kidney disease, stage 3 unspecified (5) Hypothyroidism Hypothyroidism type: unspecified Qualified Code(s): E03.9 - Hypothyroidism, unspecified (6) Hypertension Hypertension type: primary hypertension Qualified Code(s): I10 - Essential ( primary) hypertension
[2024-05-02 14:08] LABS: Appearance Urine Clear (Clear); Bacteria Urine Automated 4+ (None Seen); Bilirubin Urine Negative (Negative); Blood Urine Negative (Negative); Cast Urine Automated 0-2 /lpf (0-2); Color Urine Yellow; Epithelial Cell Urine Auto 0-2 /hpf (0-2); Glucose Urine UA Negative (Negative); Ketones Urine Negative (Negative); Leukocyte Esterase Urine Trace (Negative); Nitrite Urine Negative (Negative); Protein Urine Negative (Negative); RBC Urine Automated 0-2 /hpf (0-2); Specific Gravity Urine 1.007 (1.000-1.030); Urobilinogen Urine Negative (Negative); WBC Urine Automated 0-5 /hpf (0-5)
--- NOTE | 2024-05-02 16:07 | XCELERA ---
[id number]
[2024-05-02] MEDS: FUROSEMIDE 40 MG TAB PO SCH (16:29)
--- NOTE | 2024-05-02 17:37 | Cardiology Consultation ---
Date of Consultation May 02, 2024 Assessment & Plan (1) (HFpEF) heart failure with preserved ejection fraction: (2) Aortic insufficiency: (3) Mitral regurgitation: (4) Afib: Plan 1. Heart failure with preserved ejection fraction: She seems of had an acute exacerbation. Presented with hypoxia and elevated BNP. She has received some diuretics. However, her symptoms have not improved significantly. Still somewhat hypoxic. I would continue the diuretics but have a low threshold for an alternative etiology such as an infectious process. Will need to monitor her electrolytes and renal function closely to determine if she has an element of intravascular depletion with continued Lasix use. Given what appears to be some frequent recurrences of heart failure she would likely benefit from an SGLT2 inhibitor. The 1 caution would be recurrent urinary tract infections. 2. Valvular heart disease: She has an element of aortic and mitral insufficiency which seems stable. Preserved LV systolic function. 3. Atrial fibrillation: She is known to have an element of atrial fibrillation. No symptoms recently. No documented high heart rates to suggest that atrial fibrillation precipitated her heart failure. Has been maintained on amiodarone and there is been no elevation in the liver function test or thyroid studies. Anticoagulation was discontinued due to gastrointestinal hemorrhage. Patient has been advised to consider reinitiation but has declined. History of Present Illness Reason for Consultation: Shortness of breath Requesting Physician: Lucero Attending Physician: Marlene Chapman MD History of Present Illness The patient is an 84-year-old woman with a history of paroxysmal atrial fibrillation, hypertension, valvular heart disease and heart failure with preserved ejection fraction. She presented to the hospital with worsening dyspnea. Seems that the patient's problems started when she developed shingles. She was started on medication for nerve pain which is felt to have resulted in some side effects. This included some dyspnea. She has a pulse oximeter at home and also noticed some hypoxia. Her shortness of breath became severe enough that she sought medical attention at the hospital. She does have an element of lower extremity edema which is fairly stable. She does report monitoring her weights at home and has not noticed significant weight gain recently. She did not report any symptoms of palpitations. She generally has been aware of atrial fibrillation and does use her pulse oximeter as noted above frequently. She has not noticed any high heart rates recently. She claims to be compliant with her medical therapy. She reports following a low-sodium diet. Currently uncomfortable secondary to low back pain. Allergies Allergy/AdvReac Type Severity Reaction Status Date / Time Quinolones Allergy Intermediate HIVES Verified 03/10/24 10:07 dabigatran etexilate Allergy Unknown ON Verified 03/10/24 10:07 [facility] metronidazole AdvReac Intermediate GI SYMPTOMS Verified 03/10/24 10:07 sulfamethoxazole AdvReac Mild GI SYMPTOMS Verified 03/10/24 10:07 trimethoprim AdvReac Mild GI SYMPTOMS Verified 03/10/24 10:07 Home Medications Medication Instructions Recorded Confirmed Type aspirin 325 mg tablet 325 mg PO QAM #100 tabs 01/28/19 05/02/24 History levothyroxine 75 mcg capsule 75 mcg PO DAILYBB 03/14/19 05/02/24 History amlodipine 10 mg tablet 10 mg PO QDD #90 tabs 03/21/20 05/02/24 Rx diclofenac sodium 1 % topical gel 2 g topical QID PRN Pain 05/27/21 05/02/24 History buspirone 5 mg tablet 5 mg PO BID PRN Anxiety 07/18/22 05/02/24 History cyanocobalamin (vitamin B-12) 1,000 mcg PO Q OTHER DAY 07/18/22 05/02/24 History 1,000 mcg tablet multivitamin with minerals 1 tab PO DAILY 07/18/22 05/02/24 History (Multiple Vitamin-Minerals tablet) amiodarone 200 mg tablet 200 mg PO QDD #90 tabs 05/26/23 05/02/24 Rx furosemide 40 mg tablet 40 mg PO QAM #90 tabs 06/11/23 05/02/24 Rx sodium chloride 1,000 mg soluble 1,000 mg PO BID #180 tabs 07/07/23 05/02/24 Rx tablet calcium 600 mg (as 1 tab PO DAILY 11/27/23 05/02/24 History carbonate)-vitamin D3 10 mcg (400 unit) tablet (Calcium 600 + D(3)) magnesium oxide 500 mg PO DAILY 11/27/23 05/02/24 History peg 400-propylene glycol 0.4 %-0.3 1 drp ophthalmic (eye) QID 11/27/23 05/02/24 History % eye drops (Systane Ultra) potassium gluconate 600 mg (99 mg) 600 mg PO DAILY 11/27/23 05/02/24 History tablet vit C 250 mg-vit E 90 mg-zinc 40 2 tab PO DAILY 11/27/23 05/02/24 History mg-copper 1 sq-afmcnu-iynbyh capsule (PreserVision AREDS-2) L.acidop,casei,lactis,rham-B.lact,nicole 2 cap PO DAILY #30 caps 02/21/24 05/02/24 Rx 625 mg (10 billion cell) capsule (Advanced Probiotic) metoprolol succinate 50 mg 50 mg PO BID #180 tabs 04/11/24 05/02/24 Rx tablet,extended release 24 hr Patient History Medical History (Updated 05/02/24 @ 11:23 by Cathryn Evans MD) Shortness of breath Hypoxic Acute respiratory failure with hypoxia SOB (shortness of breath) Mitral regurgitation Chronic heart failure with preserved ejection fraction Atypical chest pain GERD (gastroesophageal reflux disease) Pneumonia Chest pain Chest pain Diverticulitis Afib Surgical History (Updated 05/02/24 @ 11:35 by Malena Barker PA-C) History of umbilical hernia repair incarcerated - unknown age Hx of hernia repair right inguinal 2013 Hx of cholecystectomy Hx of hysterectomy Family History Mother Stroke Social History Smoking Status: Never smoker Second Hand Exposure: No; Do You Dip or Chew Tobacco: No; Hx Alcohol Use: No Hx Substance Use: No Preferred Language: Swedish Communication Ability: Effective 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 Mood affect appear normal. She answered all questions appropriately. HEENT: Sclerae are anicteric. Pupils are equal and reactive to light and accommodation. Extraocular movements were intact. Neuro: Cranial nerves intact Lungs: Lungs are clear to auscultation bilaterally. Perhaps some reduced breath sounds in the right base. There are no rales wheezes or rhonchi. She has normal respiratory effort without use of accessory muscles. There is normal pulmonary excursion. Cardiac: The rhythm was regular. S1 and S2 were normal. There are no murmurs on examination. The PMI was not markedly displaced on palpation. Extremities: Patient has bilateral radial pulses that are equal in intensity. There is no evidence cyanosis or clubbing. Chronic trophic changes bilaterally with mild lower extremity edema Skin: There are no rashes noted on examination today. Results & Data Vital Signs (Past 12 Hours) Vital Signs Temp Pulse Pulse Resp BP BP Pulse Ox 05/02/24 15:28 98 05/02/24 15:27 36.6 C 68 18 131/59 L 98 05/02/24 14:52 05/02/24 13:23 66 05/02/24 13:03 05/02/24 13:03 36.5 C 67 20 145/59 H 94 05/02/24 13:03 05/02/24 13:01 36.5 C 67 20 145/59 H 94 05/02/24 13:00 36.5 C 67 20 145/59 H 94 05/02/24 12:00 137/54 L 05/02/24 12:00 62 20 98 05/02/24 11:57 65 25 H 98 05/02/24 11:30 135/63 05/02/24 11:27 64 18 98 05/02/24 11:03 62 28 H 99 05/02/24 11:00 137/60 05/02/24 10:57 64 20 98 05/02/24 10:33 61 20 99 05/02/24 10:30 135/56 L 05/02/24 10:21 63 27 H 97 05/02/24 10:00 61 19 99 05/02/24 10:00 130/55 L 05/02/24 09:54 99 05/02/24 09:46 89 L 05/02/24 09:46 36.7 C 67 20 143/87 H 89 L 05/02/24 09:43 64 05/02/24 09:39 81 21 90 05/02/24 09:39 66 27 H 98 05/02/24 09:36 143/87 H Pulse Ox O2 Del Method O2 Del Method O2 Flow Rate O2 Flow Rate 05/02/24 15:28 Room Air, Nasal Cannula 2 05/02/24 15:27 Nasal Cannula 2 05/02/24 14:52 Room Air 05/02/24 13:23 05/02/24 13:03 Nasal Cannula 2 05/02/24 13:03 Nasal Cannula 2 05/02/24 13:03 94 Nasal Cannula 2 05/02/24 13:01 Nasal Cannula 2 05/02/24 13:00 Nasal Cannula 2 05/02/24 12:00 05/02/24 12:00 05/02/24 11:57 05/02/24 11:30 05/02/24 11:27 05/02/24 11:03 Nasal Cannula 2 05/02/24 11:00 05/02/24 10:57 05/02/24 10:33 05/02/24 10:30 05/02/24 10:21 05/02/24 10:00 05/02/24 10:00 05/02/24 09:54 Nasal Cannula 2 05/02/24 09:46 Room Air 05/02/24 09:46 Room Air 05/02/24 09:43 05/02/24 09:39 05/02/24 09:39 Nasal Cannula 2 05/02/24 09:36 Laboratory Results Abnormal Lab Results 05/02/24 05/02/24 05/02/24 05:45 09:45 13:33 WBC 9.53 RBC 3.12 L Hgb 9.8 L Hct 30.0 L MCV 96.2 MCH 31.4 MCHC 32.7 RDW Std Deviation 49.7 H RDW Coeff of Ursula 14.3 Plt Count 312 MPV 10.1 Immature Gran % (Auto) 0.8 Neut % (Auto) 68.0 Lymph % (Auto) 12.0 [place] % (Auto) 14.2 Eos % (Auto) 4.2 Baso % (Auto) 0.8 Neut # (Auto) 6.48 Lymph # (Auto) 1.14 L [place] # (Auto) 1.35 H Eos # (Auto) 0.40 Baso # (Auto) 0.08 Immature Gran # (Auto) 0.08 PT 10.5 INR 1.0 Sodium 135 L Potassium 3.9 Chloride 101 Carbon Dioxide 26 Anion Gap 8 BUN 24 H Creatinine 1.03 Est Cr Clr Drug Dosing 33.9 eGFR 52.95 BUN/Creatinine Ratio 23.3 H Glucose 110 H Calcium 9.6 Magnesium 2.1 Total Bilirubin 0.6 AST 17 ALT 9 Alkaline Phosphatase 87 Troponin I High Sens 9.2 B-Natriuretic Peptide 652 H Total Protein 8.1 Albumin 4.0 Globulin 4.1 H Albumin/Globulin Ratio 1.0 Urine Color Yellow Urine Appearance Clear Urine pH 8.0 H Ur Specific [place] 1.007 Urine Protein Negative Urine Glucose (UA) Negative Urine Ketones Negative Urine Blood Negative Urine Nitrite Negative Urine Bilirubin Negative Urine Urobilinogen Negative Ur Leukocyte Esterase Trace H Urine WBC (Auto) 0-5 Urine RBC (Auto) 0-2 U Hyaline Cast (Auto) 0-2 U Epithel Cells (Auto) 0-2 Urine Bacteria (Auto) 4+ H Adenovirus (PCR) Not Detected B. pertussis DNA (PCR) Not Detected B.parapertussis DNA PCR Not Detected C. pneumoniae DNA (PCR) Not Detected Coronavirus OC43 (PCR) Not Detected Coronavirus HKU1 (PCR) Not Detected Coronavirus 229E (PCR) Not Detected SARS-CoV-2 (PCR) Not Detected Coronavirus NL63 (PCR) Not Detected Human Metapneumovir PCR Not Detected Influenza Type A (PCR) Not Detected Influenza Type B (PCR) Not Detected M. pneumoniae (PCR) Not Detected Parainfluenza 1 (PCR) Not Detected Parainfluenza 2 (PCR) Not Detected Parainfluenza 3 (PCR) Not Detected Parainfluenza 4 (PCR) Not Detected RSV (PCR) Not Detected Entero/Rhino (PCR) Not Detected Diagnostic Findings Echocardiogram 05/02/2024: Normal LV systolic function with ejection fraction 55 to 60%. Stage III diastolic heart failure. Mildly dilated left atrium. Mild to moderate aortic regurgitation. Moderate mitral regurgitation. Elevated RV systolic pressure 40 to 50 mmHg. Chest x-ray obtained the time admission revealed cardiomegaly and mild pulmonary edema. Small bilateral pleural effusions. ECG Additional Comments: EKG obtained the time admission revealed sinus bradycardia with long first- degree AV block and left bundle branch block. PG Care Time/CCT Total # of Minutes Spent Total Time Spent with Patient: Total time spent is greater than 50% in coordination of care (as documented) at patient's floor/unit and/or counseling patient: Coding Level of Care Code 97079 INT INP/OBS CARE MIN Diagnoses (HFpEF) heart failure with preserved ejection fraction I50.30 Aortic insufficiency I35.1 Mitral regurgitation I34.0 Afib I48.91
[2024-05-02] MEDS: ACETAMINOPHEN 325 MG TAB PO PRN (18:09)
[2024-05-02] MEDS: AMIODARONE 200 MG TAB PO SCH (20:37)
[2024-05-02] MEDS: ARTIFICIAL TEARS OP SCH (20:37)
[2024-05-02] MEDS: SODIUM CHLORIDE 1 GM TABLET PO SCH (20:37)
[2024-05-02] MEDS: amLODIPine BESYLATE 5 MG TAB PO SCH (20:37)
[2024-05-02] MEDS: METOPROLOL SUCC 50MG EXT REL TAB PO SCH (20:37)
[2024-05-02] MEDS: HEPARIN SOD 5,000 UNIT/0.5 ML VIAL SQ SCH (22:02)
[2024-05-03] MEDS: LEVOTHYROXINE SODIUM 75 MCG TABLET PO SCH (05:33)
[2024-05-03 06:30] LABS: Basophils # (auto) 0.06 K/uL (0.00-0.20); Basophils % (auto) 0.8 %; Eosinophils # (auto) 0.55 K/uL (0.00-0.50); Eosinophils % (auto) 6.9 %; Hemoglobin 8.9 g/dl (12.0-16.0); Immature Granulocytes # (auto) 0.07 K/uL (0.01-0.20); Immature Granulocytes % (auto) 0.9 %; Lymphocytes % (auto) 17.5 %; Mean Corpuscular Hemoglobin 31.1 pg (25.0-34.0); Mean Corpuscular Hgb Conc 31.8 g/dL (32.0-36.0); Mean Corpuscular Volume 97.9 fL (80.0-100.0); Monocytes # (auto) 1.22 K/uL (0.11-0.59); Monocytes % (auto) 15.3 %; Neutrophils % (auto) 58.6 %; Platelet Count 297 K/uL (130-400); RDW Coefficient of Variation 14.3 % (11.5-14.5); RDW Standard Deviation 51.2 fL (36.4-46.3); Red Blood Count 2.86 M/uL (4.20-5.40)
[2024-05-03 06:50] LABS: BUN Creatinine Ratio 23.6 (10-20); Calcium 9.2 mg/dl (8.6-10.3); Creatinine Clr Calc Pharmacy 31.7 ml/min; Potassium 3.8 mmol/L (3.5-5.1)
[2024-05-03] MEDS: cefTRIAXone SODIUM 1,000 MG/50 ML BAG IV SCH (08:46)
[2024-05-03] MEDS: CYANOCOBALAMIN (B-12) 500 MCG TABLET PO SCH (08:51)
[2024-05-03] MEDS: ASPIRIN 325 MG ECTAB PO SCH (08:51)
[2024-05-03] MEDS: CEROVITE ADV FORMULA TAB PO SCH (08:51)
[2024-05-03] MEDS: MAGNESIUM OXIDE 400 MG TAB PO SCH (08:51)
[2024-05-03] MEDS: POTASSIUM CHLORIDE CRTAB 20 MEQ TABCR PO SCH (08:54)
[2024-05-03] MEDS ORDERED: NON-FORMULARY MEDICATION (Potassium Gluconate 600 mg (99 mg) Tablet) PO SCH (09:00)
[2024-05-03] MEDS ORDERED: NON-FORMULARY MEDICATION (Vit C,E-Zn-Coppr-Lutein-Zeaxan [Preservision Areds-2] 250-90-40- PO SCH (09:00)
--- NOTE | 2024-05-03 09:19 | Electrocardiogram Report ---
Test Reason : Blood Pressure : */* mmHG Vent. Rate : 66 BPM Atrial Rate : 66 BPM P-R Int : 400 ms QRS Dur : 140 ms QT Int : 474 ms P-R-T Axes : 91 -85 8 degrees QTcB Int : 496 ms Sinus rhythm with 1st degree A-V block Left axis deviation Left bundle branch block Abnormal ECG When compared with ECG of 18-Feb-2024 05:29, No significant change Confirmed by Sixto Woodruff ([id number]) on 05/03/2024 9:19:10 AM Referred By: REFERRED SELF Confirmed By: Sixto Woodruff
[2024-05-03] MEDS: FUROSEMIDE 40 MG/4 ML VIAL IV SCH (10:15)
--- NOTE | 2024-05-03 14:51 | Hospitalist Progress Note ---
Date of Service May 03, 2024 Assessment & Plan (1) Acute exacerbation of CHF (congestive heart failure): Plan: Patient is an 84 y/o female with PAF, chronic HFpEF, LBBB, moderate to severe MR, moderate AI, CKD3, hypothyroidism, SIADH, GERD, and other history as outlined below who presents to the ED with chest pain and MASSEY. Work-up in the ED consistent with acute on chronic HFpEF despite reported compliance with home regimen including furosemide 40 mg daily. Requiring 2L of O2 to maintain sats in the ED, which is new for her. Received IV furosemide Acute HFpEF Valvular heart disease :aortic insufficiency, Mitral regurgitation Hypoxia secondary to above --CXR:Cardiomegaly and mild pulmonary edema. Small bilateral pleural effusions. --BNP 652 --ECHO: Left ventricle systolic function is normal. Left atrium is mildly dilated. Mild to moderate aortic regurgitation. Moderate mitral regurgitation. Right ventricular systolic pressure is elevated at 40 to 50 mmHg. Diastolic dysfunction, grade 3 consistent with marked congestive heart failure --Continue IV furosemide 40 mg twice a day -- Appreciate cardiology input --Monitor I's and O's, daily weight --Wean off of supplemental oxygen as able Suspected UTI Vs bacteriuria Patient denies any UTI symptoms Follow-up urine culture Empirically on Rocephin (2) Acute hypoxic respiratory failure: Plan: Management as above (3) CKD (chronic kidney disease), stage III: Plan: chronic, stable Monitor labs with diuresis Avoid nephrotoxic agents as able (4) Paroxysmal atrial fibrillation: Plan: Chronic, stable Continue amiodarone, metoprolol Not on AC due to falls and prior GI bleeding (5) Hypothyroidism: Plan: Chronic, stable Continue levothyroxine (6) Hypertension: Plan: Chronic, stable Continue home regimen (7) Hyponatremia with decreased serum osmolality: Plan: Chronic, stable Continue sodium chloride tablets Plan Code status: DNR/DNI DVT prophylaxis: SQ heparin Admission and Anticipated Discharge Date Admission Date: May 02, 2024 Subjective Patient is seen and examined at bedside Less dyspnea today Cough resolved Offers no other complaints today Denies any chest pain, dizziness, nausea, vomiting, abdominal pain Review of Systems Review of Systems: All systems reviewed & are unremarkable except as noted in Subjective Physical Exam Physical Exam: Physical Exam: Vitals signs as noted above General Appearance: Thin, frail, elderly, no apparent distress Head: normocephalic, Atraumatic Eyes: normal inspection, EOMI Neck: supple, Trachea midline Respiratory/Chest: Normal breath sounds, +basal crackles, No accessory muscle use Cardiovascular: S1, S2, + murmur Abdomen/GI:Soft, Non tender, Bowel sounds present Extremities/Musculoskeletal:normal inspection, 1+ B/L LE edema Neurologic/Psych:AAOX3, grossly no focal neurological deficits Skin: normal color, warm Results & Data Results & Data Vital Signs (Past 12 Hours) Vital Signs Temp Pulse Pulse Pulse Resp BP Pulse Ox 05/03/24 13:23 58 L 05/03/24 11:25 36.4 C L 54 L 18 123/52 L 98 05/03/24 09:29 61 128/53 L 05/03/24 08:50 62 05/03/24 07:43 05/03/24 07:02 36.3 C L 55 L 18 112/53 L 98 05/03/24 05:49 59 L 05/03/24 03:37 36.5 C 63 16 128/57 L 96 O2 Del Method O2 Flow Rate 05/03/24 13:23 05/03/24 11:25 Nasal Cannula 2 05/03/24 09:29 05/03/24 08:50 05/03/24 07:43 Nasal Cannula 2 05/03/24 07:02 Nasal Cannula 2 05/03/24 05:49 05/03/24 03:37 Nasal Cannula 2 Laboratory Results Short CBC 05/03/24 Range/Units 05:36 WBC 8.00 (4.8-10.8) K/ul Hgb 8.9 L (12.0-16.0) g/dl Hct 28.0 L (37.0-47.0) % Plt Count 297 (130-400) K/uL BMP 05/03/24 05:36 Sodium 140 Potassium 3.8 Chloride 104 Carbon Dioxide 30 BUN 26 H Creatinine 1.10 Glucose 104 H Calcium 9.2 (1) Acute exacerbation of CHF (congestive heart failure) Heart failure type: diastolic Qualified Code(s): I50.33 - Acute on chronic diastolic (congestive) heart failure (3) CKD (chronic kidney disease), stage III Chronic kidney disease stage 3 subtype: unspecified whether 3a or 3b Qualified Code(s): N18.30 - Chronic kidney disease, stage 3 unspecified (5) Hypothyroidism Hypothyroidism type: unspecified Qualified Code(s): E03.9 - Hypothyroidism, unspecified (6) Hypertension Hypertension type: primary hypertension Qualified Code(s): I10 - Essential (primary) hypertension
[2024-05-03] MEDS ORDERED: AMIODARONE 200 MG TAB PO SCH (16:30)
[2024-05-03] MEDS ORDERED: amLODIPine BESYLATE 5 MG TAB PO SCH (16:30)
[2024-05-03] MEDS: DEXTROSE 50% 50 ML SYRINGE IV ONE (17:40)
[2024-05-03] MEDS: busPIRone 5 MG TAB PO PRN (20:35)
[2024-05-04 06:06] LABS: Hematocrit (blood only) 28.5 % (37.0-47.0); Hemoglobin 9.2 g/dl (12.0-16.0)
[2024-05-04 06:23] LABS: BUN Creatinine Ratio 21.6 (10-20); Calcium 9.2 mg/dl (8.6-10.3); Creatinine Clr Calc Pharmacy 34.2 ml/min; Potassium 3.7 mmol/L (3.5-5.1)
--- NOTE | 2024-05-04 14:13 | Hospitalist Progress Note ---
Date of Service May 04, 2024 Assessment & Plan (1) Acute exacerbation of CHF (congestive heart failure): Plan: Patient is an 84 y/o female with PAF, chronic HFpEF, LBBB, moderate to severe MR, moderate AI, CKD3, hypothyroidism, SIADH, GERD, and other history as outlined below who presents to the ED with chest pain and MASSEY. Work-up in the ED consistent with acute on chronic HFpEF despite reported compliance with home regimen including furosemide 40 mg daily. Requiring 2L of O2 to maintain sats in the ED, which is new for her. Received IV furosemide Acute HFpEF Valvular heart disease :aortic insufficiency, Mitral regurgitation Hypoxia secondary to above --CXR:Cardiomegaly and mild pulmonary edema. Small bilateral pleural effusions. --BNP 652 --ECHO: Left ventricle systolic function is normal. Left atrium is mildly dilated. Mild to moderate aortic regurgitation. Moderate mitral regurgitation. Right ventricular systolic pressure is elevated at 40 to 50 mmHg. Diastolic dysfunction, grade 3 consistent with marked congestive heart failure --Continue IV furosemide 40 mg twice a day -- Appreciate cardiology input --Monitor I's and O's, daily weight --Wean off of supplemental oxygen as able continue IV diuresis, renal function stable Needs follow-up with cardiology on discharge Suspected UTI Vs bacteriuria--likely bacteriuria given no symptoms Patient denies any UTI symptoms Urine culture grew E. coli: Also noted on prior cultures Empirically on Rocephin--consider discontinuing after 3 doses (2) Acute hypoxic respiratory failure: Plan: Management as above (3) CKD (chronic kidney disease), stage III: Plan: chronic, stable Monitor labs with diuresis Avoid nephrotoxic agents as able (4) Paroxysmal atrial fibrillation: Plan: Chronic, stable Continue amiodarone, metoprolol Not on AC due to falls and prior GI bleeding (5) Hypothyroidism: Plan: Chronic, stable Continue levothyroxine (6) Hypertension: Plan: Chronic, stable Continue home regimen (7) Hyponatremia with decreased serum osmolality: Plan: Chronic, stable Continue sodium chloride tablets Plan Code status: DNR/DNI DVT prophylaxis: SQ heparin Disposition PT recommends rehab placement Admission and Anticipated Discharge Date Admission Date: May 02, 2024 Subjective Patient is seen and examined at bedside States having multiple joint pains which she attributes to hospital bed Sitting in chair during my encounter Offers no other complaints today Dyspnea, cough resolved Denies any chest pain, dizziness, nausea, vomiting, abdominal pain Review of Systems Review of Systems: All systems reviewed & are unremarkable except as noted in Subjective Physical Exam Physical Exam: Physical Exam: Vitals signs as noted above General Appearance: Thin, frail, elderly, no apparent distress Head: normocephalic, Atraumatic Eyes: normal inspection, EOMI Neck: supple, Trachea midline Respiratory/Chest: Normal breath sounds, + minimal basal crackles, No accessory muscle use Cardiovascular: S1, S2, + murmur Abdomen/GI:Soft, Non tender, Bowel sounds present Extremities/Musculoskeletal:normal inspection, 1+ B/L LE edema Neurologic/Psych:AAOX3, grossly no focal neurological deficits Skin: normal color, warm Results & Data Results & Data Vital Signs (Past 12 Hours) Vital Signs Temp Pulse Pulse Resp BP BP Pulse Ox 05/04/24 11:27 36.8 C 64 18 141/64 H 94 05/04/24 09:02 05/04/24 07:45 36.8 C 74 18 138/60 93 05/04/24 07:11 62 05/04/24 03:41 36.6 C 60 16 136/63 95 O2 Del Method O2 Flow Rate 05/04/24 11:27 Nasal Cannula 1 05/04/24 09:02 Nasal Cannula 2 05/04/24 07:45 Nasal Cannula 1 05/04/24 07:11 05/04/24 03:41 Nasal Cannula 1 Laboratory Results Short CBC 05/04/24 Range/Units 05:44 Hgb 9.2 L (12.0-16.0) g/dl Hct 28.5 L (37.0-47.0) % BMP 05/04/24 05:44 Sodium 141 Potassium 3.7 Chloride 104 Carbon Dioxide 30 BUN 22 Creatinine 1.02 Glucose 98 Calcium 9.2 (1) Acute exacerbation of CHF (congestive heart failure) Heart failure type: diastolic Qualified Code(s): I50.33 - Acute on chronic diastolic (congestive) heart failure (3) CKD (chronic kidney disease), stage III Chronic kidney disease stage 3 subtype: unspecified whether 3a or 3b Qualified Code(s): N18.30 - Chronic kidney disease, stage 3 unspecified (5) Hypothyroidism Hypothyroidism type: unspecified Qualified Code(s): E03.9 - Hypothyroidism, unspecified (6) Hypertension Hypertension type: primary hypertension Qualified Code(s): I10 - Essential (primary) hypertension
[2024-05-05 07:31] LABS: BUN Creatinine Ratio 21.7 (10-20); Creatinine Clr Calc Pharmacy 37.9 ml/min; Potassium 3.8 mmol/L (3.5-5.1)
--- NOTE | 2024-05-05 15:25 | Cardiology Progress Note ---
Date of Service May 05, 2024 Assessment & Plan (1) (HFpEF) heart failure with preserved ejection fraction: (2) Aortic insufficiency: (3) Mitral regurgitation: (4) Afib: Plan 1. Heart failure with preserved ejection fraction: Symptomatically better. While she has been on intravenous diuretics difficult to tell if she is effective good diuresis. Measurements by the nursing staff would suggest otherwise. Given her normal electrolytes and renal function would seem re asonable to double her dose of Lasix to affect a better diuresis and expedite her recovery/discharge. Ideally she would be on SGLT2 inhibitor, my concern is recurrent urinary tract infections. At discharge she can likely be returned to her usual dose of diuretic which is 40 mg of Lasix daily. She should follow-up in our heart failure clinic. 2. Valvular heart disease: She has an element of aortic and mitral insufficiency which seems stable. Preserved LV systolic function. 3. Atrial fibrillation: She is known to have an element of atrial fibrillation. No symptoms recently. No documented high heart rates to suggest that atrial fibrillation precipitated her heart failure. Has been maintained on amiodarone and there is been no elevation in the liver function test or thyroid studies. Anticoagulation was discontinued due to gastrointestinal hemorrhage. Patient has been advised to consider reinitiation but has declined. I would suggest an increased dose of diuretic to Lasix 80 mg twice daily. This should affect a better diuresis. We can monitor electrolytes and renal function closely. When she is symptomatically improved she can be discharged on her old dose of diuretic with close follow-up in our heart failure clinic. I will be away from the hospital for the next 2 days. If there are specific concerns about her cardiac care please contact the on-call [facility] washing machine mechanic Admission and Anticipated Discharge Date Admission Date: May 02, 2024 Subjective This afternoon the patient stated she was uncomfortable lying in the bed. No specific complaints. Breathing much improved. Actually lying flat and feeling comfortable. No dizziness or lightheadedness. No sense of palpitation. Review of Systems Review of Systems: Per HPI Physical Exam Physical Exam: She is alert and oriented x3. Mood affect appear normal. She answered all questions appropriately. HEENT: Sclerae are anicteric. Pupils are equal and reactive to light and accommodation. Extraocular movements were intact. Neuro: Cranial nerves intact Lungs: Lungs are clear to auscultation bilaterally. There are no rales wheezes or rhonchi. She has normal respiratory effort without use of accessory muscles. There is normal pulmonary excursion. Cardiac: The rhythm was regular. S1 and S2 were normal. There are no murmurs on examination. The PMI was not markedly displaced on palpation. Extremities: Patient has bilateral radial pulses that are equal in intensity. There is no evidence cyanosis or clubbing. Chronic trophic changes bilaterally with mild lower extremity edema Skin: There are no rashes noted on examination today. Results & Data Vital Signs (Past 12 Hours) Vital Signs Temp Pulse Pulse Resp BP Pulse Ox O2 Del Method 05/05/24 14:54 36.6 C 59 L 17 125/61 97 Nasal Cannula 05/05/24 14:16 60 05/05/24 10:59 36.7 C 59 L 16 122/60 96 Nasal Cannula 05/05/24 08:30 Nasal Cannula 05/05/24 07:24 36.6 C 60 17 123/57 L 96 Nasal Cannula 05/05/24 07:14 61 05/05/24 03:55 36.5 C 62 18 121/63 95 Nasal Cannula O2 Flow Rate 05/05/24 14:54 1 05/05/24 14:16 05/05/24 10:59 1.5 05/05/24 08:30 2 05/05/24 07:24 1.5 05/05/24 07:14 05/05/24 03:55 1 Laboratory Results Abnormal Lab Results 05/05/24 06:48 Sodium 139 Potassium 3.8 Chloride 103 Carbon Dioxide 31 Anion Gap 5 BUN 20 Creatinine 0.92 Est Cr Clr Drug Dosing 37.9 eGFR 60.64 BUN/Creatinine Ratio 21.7 H Glucose 96 Calcium 9.0 PG Care Time/CCT Total # of Minutes Spent Total Time Spent with Patient: Total time spent is greater than 50% in coordination of care (as documented) at patient's floor/unit and/or counseling patient: Coding Level of Care Code 93623 SUB INP/OBS CARE 2/35MIN Diagnoses (HFpEF) heart failure with preserved ejection fraction I50.30 Aortic insufficiency I35.1 Mitral regurgitation I34.0 Afib I48.91
[2024-05-05] MEDS: DICLOFENAC SOD 1% GEL 100 GM TUBE EXT PRN (15:28)
--- NOTE | 2024-05-05 15:38 | Hospitalist Progress Note ---
Date of Service May 05, 2024 Assessment & Plan (1) Acute exacerbation of CHF (congestive heart failure): Plan: Patient is an 84 y/o female with PAF, chronic HFpEF, LBBB, moderate to severe MR, moderate AI, CKD3, hypothyroidism, SIADH, GERD, and other history as outlined below who presents to the ED with chest pain and MASSEY. Work-up in the ED consistent with acute on chronic HFpEF despite reported compliance with home regimen including furosemide 40 mg daily. Requiring 2L of O2 to maintain sats in the ED, which is new for her. Received IV furosemide Acute HFpEF Valvular heart disease :Aortic insufficiency, Mitral regurgitation Hypoxia secondary to above --CXR:Cardiomegaly and mild pulmonary edema. Small bilateral pleural effusions. --BNP 652 --ECHO: Left ventricle systolic function is normal. Left atrium is mildly dilated. Mild to moderate aortic regurgitation. Moderate mitral regurgitation. Right ventricular systolic pressure is elevated at 40 to 50 mmHg. Diastolic dysfunction, grade 3 consistent with marked congestive heart failure --Continue IV furosemide 40 mg twice a day>> will increase to 80 mg twice a day -- Appreciate cardiology input --Monitor I's and O's, daily weight --Wean off of supplemental oxygen as able Needs follow-up with cardiology on discharge Continue IV diuresis Needs rehab placement when stable Suspected UTI Vs bacteriuria--likely bacteriuria given no symptoms Patient denies any UTI symptoms Urine culture grew E. coli: Also noted on prior cultures Empirically on Rocephin--completed 3-day course (2) Acute hypoxic respiratory failure: Plan: Management as above (3) CKD (chronic kidney disease), stage III: Plan: chronic, stable Monitor labs with diuresis Avoid nephrotoxic agents as able (4) Paroxysmal atrial fibrillation: Plan: Chronic, stable Continue amiodarone, metoprolol Not on AC due to falls and prior GI bleeding (5) Hypothyroidism: Plan: Chronic, stable Continue levothyroxine (6) Hypertension: Plan: Chronic, stable Continue home regimen (7) Hyponatremia with decreased serum osmolality: Plan: Chronic, stable Continue sodium chloride tablets Plan Code status: DNR/DNI DVT prophylaxis: SQ heparin Disposition Rehab as able Admission and Anticipated Discharge Date Admission Date: May 02, 2024 Subjective Patient is seen and examined at bedside States feeling better and having good urinary output Still has leg edema Offers no other complaints Renal function stable Dyspnea, cough resolved Denies any chest pain, dizziness, nausea, vomiting, abdominal pain Review of Systems Review of Systems: All systems reviewed & are unremarkable except as noted in Subjective Physical Exam Physical Exam: Physical Exam: Vitals signs as noted above General Appearance: Thin, frail, elderly, no apparent distress Head: normocephalic, Atraumatic Eyes: normal inspection, EOMI Neck: supple, Trachea midline Respiratory/Chest: Normal breath sounds, + minimal basal crackles, No accessory muscle use Cardiovascular: S1, S2, + murmur Abdomen/GI:Soft, Non tender, Bowel sounds present Extremities/Musculoskeletal:normal inspection, 1+ B/L LE edema Neurologic/Psych:AAOX3, grossly no focal neurological deficits Skin: normal color, warm Results & Data Results & Data Vital Signs (Past 12 Hours) Vital Signs Temp Pulse Pulse Resp BP Pulse Ox O2 Del Method 05/05/24 14:54 36.6 C 59 L 17 125/61 97 Nasal Cannula 05/05/24 14:16 60 05/05/24 10:59 36.7 C 59 L 16 122/60 96 Nasal Cannula 05/05/24 08:30 Nasal Cannula 05/05/24 07:24 36.6 C 60 17 123/57 L 96 Nasal Cannula 05/05/24 07:14 61 05/05/24 03:55 36.5 C 62 18 121/63 95 Nasal Cannula O2 Flow Rate 05/05/24 14:54 1 05/05/24 14:16 05/05/24 10:59 1.5 05/05/24 08:30 2 05/05/24 07:24 1.5 05/05/24 07:14 05/05/24 03:55 1 Laboratory Results [facility] 05/05/24 06:48 Sodium 139 Potassium 3.8 Chloride 103 Carbon Dioxide 31 BUN 20 Creatinine 0.92 Glucose 96 Calcium 9.0 (1) Acute exacerbation of CHF (congestive heart failure) Heart failure type: diastolic Qualified Code(s): I50.33 - Acute on chronic diastolic (congestive) heart failure (3) CKD (chronic kidney disease), stage III Chronic kidney disease stage 3 subtype: unspecified whether 3a or 3b Qualified Code(s): N18.30 - Chronic kidney disease, stage 3 unspecified (5) Hypothyroidism Hypothyroidism type: unspecified Qualified Code(s): E03.9 - Hypothyroidism, unspecified (6) Hypertension Hypertension type: primary hypertension Qualified Code(s): I10 - Essential (primary) hypertension
[2024-05-05] MEDS: FUROSEMIDE 40 MG/4 ML VIAL IV SCH (17:45)
[2024-05-05] MEDS: POTASSIUM CHLORIDE CRTAB 20 MEQ TABCR PO SCH (20:12)
[2024-05-06 04:55] LABS: Hematocrit (blood only) 32.1 % (37.0-47.0); Hemoglobin 10.4 g/dl (12.0-16.0); Mean Corpuscular Hgb Conc 32.4 g/dL (32.0-36.0); Mean Corpuscular Volume 95.5 fL (80.0-100.0); Mean Platelet Volume 9.8 fL (9.4-12.4); Platelet Count 364 K/uL (130-400); RDW Coefficient of Variation 13.6 % (11.5-14.5); RDW Standard Deviation 47.7 fL (36.4-46.3); Red Blood Count 3.36 M/uL (4.20-5.40); White Blood Count 9.95 K/ul (4.8-10.8)
[2024-05-06 05:11] LABS: BUN Creatinine Ratio 19.8 (10-20); Calcium 9.5 mg/dl (8.6-10.3); Creatinine Clr Calc Pharmacy 34.5 ml/min; Potassium 4.1 mmol/L (3.5-5.1)
--- NOTE | 2024-05-06 16:20 | Hospitalist Progress Note ---
Date of Service May 06, 2024 Assessment & Plan (1) Acute exacerbation of CHF (congestive heart failure): Plan: Patient is an 84 y/o female with PAF, chronic HFpEF, LBBB, moderate to severe MR, moderate AI, CKD3, hypothyroidism, SIADH, GERD, and other history as outlined below who presents to the ED with chest pain and MASSEY. Work-up in the ED consistent with acute on chronic HFpEF despite reported compliance with home regimen including furosemide 40 mg daily. Requiring 2L of O2 to maintain sats in the ED, which is new for her. Received IV furosemide Acute HFpEF Valvular heart disease :Aortic insufficiency, Mitral regurgitation Hypoxia secondary to above --CXR:Cardiomegaly and mild pulmonary edema. Small bilateral pleural effusions. --BNP 652 --ECHO: Left ventricle systolic function is normal. Left atrium is mildly dilated. Mild to moderate aortic regurgitation. Moderate mitral regurgitation. Right ventricular systolic pressure is elevated at 40 to 50 mmHg. Diastolic dysfunction, grade 3 consistent with marked congestive heart failure --Continue IV furosemide 40 mg twice a day>> will increase to 80 mg twice a day -- Appreciate cardiology input --Monitor I's and O's, daily weight --Wean off of supplemental oxygen as able Needs follow-up with cardiology on discharge Needs rehab placement when stable Volume status slowly improving Continue IV Lasix as above Suspected UTI Vs bacteriuria--likely bacteriuria given no symptoms Patient denies any UTI symptoms Urine culture grew E. coli: Also noted on prior cultures Empirically on Rocephin--completed 3-day course (2) Acute hypoxic respiratory failure: Plan: Management as above (3) CKD (chronic kidney disease), stage III: Plan: chronic, stable Monitor labs with diuresis Avoid nephrotoxic agents as able (4) Paroxysmal atrial fibrillation: Plan: Chronic, stable Continue amiodarone, metoprolol Not on AC due to falls and prior GI bleeding (5) Hypothyroidism: Plan: Chronic, stable Continue levothyroxine (6) Hypertension: Plan: Chronic, stable Continue home regimen (7) Hyponatremia with decreased serum osmolality: Plan: Chronic, stable Continue sodium chloride tablets Plan Code status: DNR/DNI DVT prophylaxis: SQ heparin Disposition Rehab as able Admission and Anticipated Discharge Date Admission Date: May 02, 2024 Subjective Patient is seen and examined at bedside Eating in chair during my encounter Still has significant lower extremity edema Renal function stable Offers no new complaints today Denies any chest pain, dyspnea, dizziness, nausea, vomiting, abdominal pain Review of Systems Review of Systems: All systems reviewed & are unremarkable except as noted in Subjective Physical Exam Physical Exam: Physical Exam: Vitals signs as noted above General Appearance: Thin, frail, elderly, no apparent distress Head: normocephalic, Atraumatic Eyes: normal inspection, EOMI Neck: supple, Trachea midline Respiratory/Chest: Normal breath sounds, + minimal basal crackles, No accessory muscle use Cardiovascular: S1, S2, + murmur Abdomen/GI:Soft, Non tender, Bowel sounds present Extremities/Musculoskeletal:normal inspection, 1+ B/L LE edema Neurologic/Psych:AAOX3, grossly no focal neurological deficits Skin: normal color, warm Results & Data Results & Data Vital Signs (Past 12 Hours) Vital Signs Temp Pulse Pulse Resp BP BP Pulse Ox 05/06/24 15:42 36.5 C 64 18 122/69 96 05/06/24 13:56 59 L 05/06/24 11:30 36.5 C 61 18 117/66 95 05/06/24 07:59 05/06/24 07:26 36.4 C L 64 18 143/59 H 94 05/06/24 07:09 64 O2 Del Method 05/06/24 15:42 Room Air 05/06/24 13:56 05/06/24 11:30 Room Air 05/06/24 07:59 Room Air 05/06/24 07:26 Room Air 05/06/24 07:09 Laboratory Results Short CBC 05/06/24 Range/Units 04:21 WBC 9.95 (4.8-10.8) K/ul Hgb 10.4 L (12.0-16.0) g/dl Hct 32.1 L (37.0-47.0) % Plt Count 364 (130-400) K/uL BMP 05/06/24 04:21 Sodium 137 Potassium 4.1 Chloride 101 Carbon Dioxide 27 BUN 20 Creatinine 1.01 Glucose 102 H Calcium 9.5 (1) Acute exacerbation of CHF (congestive heart failure) Heart failure type: diastolic Qualified Code(s): I50.33 - Acute on chronic diastolic (congestive) heart failure (3) CKD (chronic kidney disease), stage III Chronic kidney disease stage 3 subtype: unspecified whether 3a or 3b Qualified Code(s): N18.30 - Chronic kidney disease, stage 3 unspecified (5) Hypothyroidism Hypothyroidism type: unspecified Qualified Code(s): E03.9 - Hypothyroidism, unspecified (6) Hypertension Hypertension type: primary hypertension Qualified Code(s): I10 - Essential (primary) hypertension
[2024-05-07 04:59] LABS: Hematocrit (blood only) 33.3 % (37.0-47.0); Hemoglobin 10.9 g/dl (12.0-16.0); Mean Corpuscular Hemoglobin 31.4 pg (25.0-34.0); Mean Corpuscular Hgb Conc 32.7 g/dL (32.0-36.0); Mean Platelet Volume 9.7 fL (9.4-12.4); Platelet Count 405 K/uL (130-400); RDW Coefficient of Variation 13.7 % (11.5-14.5); RDW Standard Deviation 48.1 fL (36.4-46.3); Red Blood Count 3.47 M/uL (4.20-5.40); White Blood Count 9.49 K/ul (4.8-10.8)
[2024-05-07 05:07] LABS: BUN Creatinine Ratio 21.4 (10-20); Calcium 9.6 mg/dl (8.6-10.3); Creatinine Clr Calc Pharmacy 28.7 ml/min; Magnesium 2.4 mg/dl (1.7-2.4); Potassium 4.2 mmol/L (3.5-5.1)
--- NOTE | 2024-05-07 15:31 | Hospitalist Progress Note ---
Date of Service May 07, 2024 Assessment & Plan (1) Acute exacerbation of CHF (congestive heart failure): Plan: Patient is an 84 y/o female with PAF, chronic HFpEF, LBBB, moderate to severe MR, moderate AI, CKD3, hypothyroidism, SIADH, GERD, and other history as outlined below who presents to the ED with chest pain and MASSEY. Work-up in the ED consistent with acute on chronic HFpEF despite reported compliance with home regimen including furosemide 40 mg daily. Requiring 2L of O2 to maintain sats in the ED, which is new for her. Received IV furosemide Acute HFpEF Valvular heart disease :Aortic insufficiency, Mitral regurgitation Hypoxia secondary to above --CXR:Cardiomegaly and mild pulmonary edema. Small bilateral pleural effusions. --BNP 652 --ECHO: Left ventricle systolic function is normal. Left atrium is mildly dilated. Mild to moderate aortic regurgitation. Moderate mitral regurgitation. Right ventricular systolic pressure is elevated at 40 to 50 mmHg. Diastolic dysfunction, grade 3 consistent with marked congestive heart failure --Continue IV furosemide 80 mg twice a day -- Appreciate cardiology input --Monitor I's and O's, daily weight --Weaned off of supplemental oxygen Needs follow-up with cardiology on discharge Leg edema much improved Transition IV Lasix to p.o. diuretics tomorrow Renal function stable case management to help with discharge planning Suspected UTI Vs bacteriuria--likely bacteriuria given no symptoms Patient denies any UTI symptoms Urine culture grew E. coli: Also noted on prior cultures Empirically on Rocephin--completed 3-day course (2) Acute hypoxic respiratory failure: Plan: Management as above (3) CKD (chronic kidney disease), stage III: Plan: chronic, stable Monitor labs with diuresis Avoid nephrotoxic agents as able (4) Paroxysmal atrial fibrillation: Plan: Chronic, stable Continue amiodarone, metoprolol Not on AC due to falls and prior GI bleeding (5) Hypothyroidism: Plan: Chronic, stable Continue levothyroxine (6) Hypertension: Plan: Chronic, stable Continue home regimen (7) Hyponatremia with decreased serum osmolality: Plan: Chronic, stable Continue sodium chloride tablets Plan Code status: DNR/DNI DVT prophylaxis: SQ heparin Disposition Rehab as able Admission and Anticipated Discharge Date Admission Date: May 02, 2024 Subjective Patient is seen and examined at bedside Leg edema much improved Offers no new complaints today Eager to get discharged to rehab facility Denies any chest pain, dyspnea, dizziness, nausea, vomiting, abdominal pain Review of Systems Review of Systems: All systems reviewed & are unremarkable except as noted in Subjective Physical Exam Physical Exam: Physical Exam: Vitals signs as noted above General Appearance: Thin, frail, elderly, no apparent distress Head: normocephalic, Atraumatic Eyes: normal inspection, EOMI Neck: supple, Trachea midline Respiratory/Chest: Normal breath sounds, + minimal basal crackles, No accessory muscle use Cardiovascular: S1, S2, + murmur Abdomen/GI:Soft, Non tender, Bowel sounds present Extremities/Musculoskeletal:normal inspection, 1+ B/L LE edema Neurologic/Psych:AAOX3, grossly no focal neurological deficits Skin: normal color, warm Results & Data Results & Data Vital Signs (Past 12 Hours) Vital Signs Temp Pulse Pulse Resp BP Pulse Ox O2 Del Method 05/07/24 14:28 61 05/07/24 11:35 36.5 C 64 18 147/63 H 95 Room Air 05/07/24 08:21 Room Air 05/07/24 07:20 36.6 C 60 18 126/58 L 95 Room Air 05/07/24 06:49 58 L Laboratory Results Short CBC 05/07/24 Range/Units 04:27 WBC 9.49 (4.8-10.8) K/ul Hgb 10.9 L (12.0-16.0) g/dl Hct 33.3 L (37.0-47.0) % Plt Count 405 H (130-400) K/uL BMP 05/07/24 04:27 Sodium 136 Potassium 4.2 Chloride 101 Carbon Dioxide 29 BUN 25 H Creatinine 1.17 Glucose 95 Calcium 9.6 (1) Acute exacerbation of CHF (congestive heart failure) Heart failure type: diastolic Qualified Code(s): I50.33 - Acute on chronic diastolic (congestive) heart failure (3) CKD (chronic kidney disease), stage III Chronic kidney disease stage 3 subtype: unspecified whether 3a or 3b Qualified Code(s): N18.30 - Chronic kidney disease, stage 3 unspecified (5) Hypothyroidism Hypothyroidism type: unspecified Qualified Code(s): E03.9 - Hypothyroidism, unspecified (6) Hypertension Hypertension type: primary hypertension Qualified Code(s): I10 - Essential (primary) hypertension
[2024-05-08 07:18] LABS: BUN Creatinine Ratio 20.6 (10-20); Calcium 9.4 mg/dl (8.6-10.3); Creatinine Clr Calc Pharmacy 30.9 ml/min; Potassium 4.5 mmol/L (3.5-5.1)
[2024-05-08] MEDS: FUROSEMIDE 40 MG TAB PO SCH (07:25)
--- NOTE | 2024-05-08 17:12 | Hospitalist Progress Note ---
Date of Service May 08, 2024 Assessment & Plan (1) Acute exacerbation of CHF (congestive heart failure): Plan: Patient is an 84 y/o female with PAF, chronic HFpEF, LBBB, moderate to severe MR, moderate AI, CKD3, hypothyroidism, SIADH, GERD, and other history as outlined below who presents to the ED with chest pain and MASSEY. Work-up in the ED consistent with acute on chronic HFpEF despite reported compliance with home regimen including furosemide 40 mg daily. Requiring 2L of O2 to maintain sats in the ED, which is new for her. Received IV furosemide Acute HFpEF Valvular heart disease :Aortic insufficiency, Mitral regurgitation Hypoxia secondary to above --CXR:Cardiomegaly and mild pulmonary edema. Small bilateral pleural effusions. --BNP 652 --ECHO: Left ventricle systolic function is normal. Left atrium is mildly dilated. Mild to moderate aortic regurgitation. Moderate mitral regurgitation. Right ventricular systolic pressure is elevated at 40 to 50 mmHg. Diastolic dysfunction, grade 3 consistent with marked congestive heart failure --Continue IV furosemide 80 mg BID>> transition to p.o. Lasix 40 twice daily -- Appreciate cardiology input --Monitor I's and O's, daily weight --Weaned off of supplemental oxygen Leg edema much improved Renal function stable Needs follow-up with cardiology on discharge Needs rehab placement Suspected UTI Vs bacteriuria--likely bacteriuria given no symptoms Patient denies any UTI symptoms Urine culture grew E. coli: Also noted on prior cultures Empirically on Rocephin--completed 3-day course (2) Acute hypoxic respiratory failure: Plan: Management as above (3) CKD (chronic kidney disease), stage III: Plan: chronic, stable Monitor labs with diuresis Avoid nephrotoxic agents as able (4) Paroxysmal atrial fibrillation: Plan: Chronic, stable Continue amiodarone, metoprolol Not on AC due to falls and prior GI bleeding (5) Hypothyroidism: Plan: Chronic, stable Continue levothyroxine (6) Hypertension: Plan: Chronic, stable Continue home regimen (7) Hyponatremia with decreased serum osmolality: Plan: Chronic, stable Continue sodium chloride tablets Plan Code status: DNR/DNI DVT prophylaxis: SQ heparin Disposition Rehab as able Admission and Anticipated Discharge Date Admission Date: May 02, 2024 Subjective Patient is seen and examined at bedside No new complaints Volume status much improved Denies any chest pain, dyspnea, dizziness, nausea, vomiting, abdominal pain Waiting for rehab placement Review of Systems Review of Systems: All systems reviewed & are unremarkable except as noted in Subjective Physical Exam Physical Exam: Physical Exam: Vitals signs as noted above General Appearance: Thin, frail, elderly, no apparent distress Head: normocephalic, Atraumatic Eyes: normal inspection, EOMI Neck: supple, Trachea midline Respiratory/Chest: Normal breath sounds, + minimal basal crackles, No accessory muscle use Cardiovascular: S1, S2, + murmur Abdomen/GI:Soft, Non tender, Bowel sounds present Extremities/Musculoskeletal:normal inspection, 1+ B/L LE edema improving Neurologic/Psych:AAOX3, grossly no focal neurological deficits Skin: normal color, warm Results & Data Results & Data Vital Signs (Past 12 Hours) Vital Signs Temp Pulse Pulse Resp BP Pulse Ox O2 Del Method 05/08/24 15:48 36.5 C 62 20 132/66 94 Room Air 05/08/24 15:09 61 05/08/24 11:10 36.5 C 57 L 20 111/66 94 Room Air 05/08/24 08:37 36.4 C L 81 20 137/62 98 Room Air 05/08/24 07:57 Room Air 05/08/24 06:49 52 L Laboratory Results [facility] 05/08/24 06:46 Sodium 136 Potassium 4.5 Chloride 101 Carbon Dioxide 30 BUN 22 Creatinine 1.07 Glucose 94 Calcium 9.4 (1) Acute exacerbation of CHF (congestive heart failure) Heart failure type: diastolic Qualified Code(s): I50.33 - Acute on chronic diastolic (congestive) heart failure (3) CKD (chronic kidney disease), stage III Chronic kidney disease stage 3 subtype: unspecified whether 3a or 3b Qualified Code(s): N18.30 - Chronic kidney disease, stage 3 unspecified (5) Hypothyroidism Hypothyroidism type: unspecified Qualified Code(s): E03.9 - Hypothyroidism, unspecified (6) Hypertension Hypertension type: primary hypertension Qualified Code(s): I10 - Essential (primary) hypertension
[2024-05-09 07:01] LABS: BUN Creatinine Ratio 22.2 (10-20); Calcium 9.6 mg/dl (8.6-10.3); Creatinine Clr Calc Pharmacy 30.6 ml/min; Magnesium 2.3 mg/dl (1.7-2.4); Potassium 4.7 mmol/L (3.5-5.1)
--- NOTE | 2024-05-09 15:30 | Hospitalist Progress Note ---
Date of Service May 09, 2024 Assessment & Plan (1) Acute exacerbation of CHF (congestive heart failure): Plan: Patient is an 84 y/o female with PAF, chronic HFpEF, LBBB, moderate to severe MR, moderate AI, CKD3, hypothyroidism, SIADH, GERD, and other history as outlined below who presents to the ED with chest pain and MASSEY. Work-up in the ED consistent with acute on chronic HFpEF despite reported compliance with home regimen including furosemide 40 mg daily. Requiring 2L of O2 to maintain sats in the ED, which is new for her. Received IV furosemide Acute HFpEF Valvular heart disease :Aortic insufficiency, Mitral regurgitation Hypoxia secondary to above --CXR:Cardiomegaly and mild pulmonary edema. Small bilateral pleural effusions. --BNP 652 --ECHO: Left ventricle systolic function is normal. Left atrium is mildly dilated. Mild to moderate aortic regurgitation. Moderate mitral regurgitation. Right ventricular systolic pressure is elevated at 40 to 50 mmHg. Diastolic dysfunction, grade 3 consistent with marked congestive heart failure --Continue IV furosemide 80 mg BID>> transition to p.o. Lasix 40 twice daily -- Appreciate cardiology input --Monitor I's and O's, daily weight --Weaned off of supplemental oxygen Renal function stable Needs follow-up with cardiology on discharge Volume status much improved Waiting for rehab placement Suspected UTI Vs bacteriuria--likely bacteriuria given no symptoms Patient denies any UTI symptoms Urine culture grew E. coli: Also noted on prior cultures Empirically on Rocephin--completed 3-day course (2) Acute hypoxic respiratory failure: Plan: Management as above (3) CKD (chronic kidney disease), stage III: Plan: chronic, stable Monitor labs with diuresis Avoid nephrotoxic agents as able (4) Paroxysmal atrial fibrillation: Plan: Chronic, stable Continue amiodarone, metoprolol Not on AC due to falls and prior GI bleeding (5) Hypothyroidism: Plan: Chronic, stable Continue levothyroxine (6) Hypertension: Plan: Chronic, stable Continue home regimen (7) Hyponatremia with decreased serum osmolality: Plan: Chronic, stable Continue sodium chloride tablets Plan Code status: DNR/DNI DVT prophylaxis: SQ heparin Disposition Rehab as able Admission and Anticipated Discharge Date Admission Date: May 02, 2024 Subjective Patient is seen and examined at bedside Doing well today Waiting for placement Leg edema much improved Denies any chest pain, dyspnea, dizziness, nausea, vomiting, abdominal pain Review of Systems Review of Systems: All systems reviewed & are unremarkable except as noted in Subjective Physical Exam Physical Exam: Physical Exam: Vitals signs as noted above General Appearance: Thin, frail, elderly, no apparent distress Head: normocephalic, Atraumatic Eyes: normal inspection, EOMI Neck: supple, Trachea midline Respiratory/Chest: Normal breath sounds, + minimal basal crackles, No accessory muscle use Cardiovascular: S1, S2, + murmur Abdomen/GI:Soft, Non tender, Bowel sounds present Extremities/Musculoskeletal:normal inspection, 1+ B/L LE edema improving Neurologic/Psych:AAOX3, grossly no focal neurological deficits Skin: normal color, warm Results & Data Results & Data Vital Signs (Past 12 Hours) Vital Signs Temp Pulse Pulse Resp BP Pulse Ox O2 Del Method 05/09/24 13:30 59 L 05/09/24 11:01 36.4 C L 62 18 141/66 H 96 Room Air 05/09/24 08:25 Room Air 05/09/24 07:16 36.5 C 64 16 124/62 94 Room Air 05/09/24 04:58 60 05/09/24 04:22 36.7 C 63 20 116/58 L 94 Room Air Laboratory Results [facility] 05/09/24 05:36 Sodium 137 Potassium 4.7 Chloride 103 Carbon Dioxide 27 BUN 24 H Creatinine 1.08 Glucose 95 Calcium 9.6 (1) Acute exacerbation of CHF (congestive heart failure) Heart failure type: diastolic Qualified Code(s): I50.33 - Acute on chronic diastolic (congestive) heart failure (3) CKD (chronic kidney disease), stage III Chronic kidney disease stage 3 subtype: unspecified whether 3a or 3b Qualified Code(s): N18.30 - Chronic kidney disease, stage 3 unspecified (5) Hypothyroidism Hypothyroidism type: unspecified Qualified Code(s): E03.9 - Hypothyroidism, unspecified (6) Hypertension Hypertension type: primary hypertension Qualified Code(s): I10 - Essential (primary) hypertension
--- NOTE | 2024-05-10 11:41 | Hospitalist Progress Note ---
Date of Service May 10, 2024 Assessment & Plan (1) Acute exacerbation of CHF (congestive heart failure): Plan: Ms. Carlson is an 84 y/o female with PAF, chronic HFpEF, LBBB, moderate to severe MR, moderate AI, CKD3, hypothyroidism, SIADH, GERD, and other history as outlined below who was admitted for acute heart failure exacerbation. Work-up in the ED consistent with acute on chronic HFpEF despite reported compliance with home regimen including furosemide 40 mg daily. Patient now on room air and on PO lasix BID after IV diuresis #Acute HFpEF #Valvular heart disease :Aortic insufficiency, Mitral regurgitation #Hypoxia secondary to above resolved --CXR:Cardiomegaly and mild pulmonary edema. Small bilateral pleural effusions. --BNP 652 --ECHO: Left ventricle systolic function is normal. Left atrium is mildly dilated. Mild to moderate aortic regurgitation. Moderate mitral regurgitation. Right ventricular systolic pressure is elevated at 40 to 50 mmHg. Diastolic dysfunction, grade 3 consistent with marked congestive heart failure Completed IV lasix 80mg BI Transitioned to p.o. Lasix 40 twice daily -- Appreciate cardiology input --Monitor I's and O's, daily weight --Weaned off of supplemental oxygen Follow up OP cardiology #PAF continue amiodarone no longer on eliquis full dose asa #Suspected UTI Vs bacteriuria--likely bacteriuria given no symptoms Patient denies any UTI symptoms Urine culture grew E. coli: Also noted on prior cultures Empirically on Rocephin--completed 3-day course Dispo: pending rehab Downgrade to med surg (2) Acute hypoxic respiratory failure: Plan: Management as above (3) CKD (chronic kidney disease), stage III: Plan: chronic, stable Monitor labs with diuresis Avoid nephrotoxic agents as able (4) Paroxysmal atrial fibrillation: Plan: Chronic, stable Continue amiodarone, metoprolol Not on AC due to falls and prior GI bleeding (5) Hypothyroidism: Plan: Chronic, stable Continue levothyroxine (6) Hypertension: Plan: Chronic, stable Continue home regimen (7) Hyponatremia with decreased serum osmolality: Plan: Chronic, stable Continue sodium chloride tablets Plan Code status: DNR/DNI DVT prophylaxis: SQ heparin Disposition Rehab as able Admission and Anticipated Discharge Date Admission Date: May 02, 2024 Subjective NAEO Reports feeling frustrated by wait for discharge to rehab no other acute concerns Physical Exam Constitutional: WD/WN, vitals as above Respiratory: normal respiratory effort, lungs clear to auscultation Cardiovascular: RRR, no murmur, no edema Gastrointestinal (Abdomen): normal bowel sounds, soft, nontender, no hepatosplenomegaly Results & Data Results & Data Vital Signs (Past 12 Hours) Vital Signs Temp Pulse Pulse Pulse Resp BP Pulse Ox 05/10/24 07:35 36.8 C 57 L 20 120/61 94 05/10/24 07:18 05/10/24 05:45 57 L 05/10/24 03:15 36.6 C 60 18 132/60 93 O2 Del Method 05/10/24 07:35 Room Air 05/10/24 07:18 Room Air 05/10/24 05:45 05/10/24 03:15 Room Air Laboratory Results [facility] 05/10/24 11:15 Sodium 139 Potassium 4.1 Chloride 102 Carbon Dioxide 30 BUN 25 H Creatinine 1.26 H Glucose 108 H Calcium 9.7 Medications Administered Home Medications Medication Instructions Recorded Confirmed Last Taken aspirin 325 mg tablet 325 mg PO QAM #100 tabs 01/28/19 05/02/24 01/28/24 levothyroxine 75 mcg capsule 75 mcg PO DAILYBB 03/14/19 05/02/24 01/28/24 amlodipine 10 mg tablet 10 mg PO QDD #90 tabs 03/21/20 05/02/24 01/27/24 diclofenac sodium 1 % topical gel 2 g topical QID PRN Pain 05/27/21 05/02/24 05/27/21 buspirone 5 mg tablet 5 mg PO BID PRN Anxiety 07/18/22 05/02/24 Unknown cyanocobalamin (vitamin B-12) 1,000 mcg PO Q OTHER DAY 07/18/22 05/02/24 11/27/23 1,000 mcg tablet multivitamin with minerals 1 tab PO DAILY 07/18/22 05/02/24 01/28/24 (Multiple Vitamin-Minerals tablet) amiodarone 200 mg tablet 200 mg PO QDD #90 tabs 05/26/23 05/02/24 05/01/24 furosemide 40 mg tablet 40 mg PO QAM #90 tabs 06/11/23 05/02/24 01/28/24 sodium chloride 1,000 mg soluble 1,000 mg PO BID #180 tabs 07/07/23 05/02/24 01/28/24 tablet calcium 600 mg (as 1 tab PO DAILY 11/27/23 05/02/24 01/28/24 carbonate)-vitamin D3 10 mcg (400 unit) tablet (Calcium 600 + D(3)) magnesium oxide 500 mg PO DAILY 11/27/23 05/02/24 01/28/24 peg 400-propylene glycol 0.4 %-0.3 1 drp ophthalmic (eye) QID 11/27/23 05/02/24 01/28/24 % eye drops (Systane Ultra) potassium gluconate 600 mg (99 mg) 600 mg PO DAILY 11/27/23 05/02/24 01/28/24 tablet vit C 250 mg-vit E 90 mg-zinc 40 2 tab PO DAILY 11/27/23 05/02/24 01/28/24 mg-copper 1 [id number]-ceygwy capsule (PreserVision AREDS-2) L.acidop,casei,lactis,rham-B.lact,nicole 2 cap PO DAILY #30 caps 02/21/24 05/02/24 Unknown 625 mg (10 billion cell) capsule (Advanced Probiotic) metoprolol succinate 50 mg 50 mg PO BID #180 tabs 04/11/24 05/02/24 Unknown tablet,extended release 24 hr Active Medications Generic Name Dose Route Start Last Admin Trade Name Freq PRN Reason Stop Dose Admin Acetaminophen 650 mg 05/02/24 13:01 05/07/24 16:08 Acetaminophen 325 Mg Tab PO 06/01/24 13:00 650 mg Q4H PRN Administration Pain or Fever Amiodarone HCl 200 mg 05/02/24 19:45 05/10/24 15:55 Amiodarone 200 Mg Tab PO 06/01/24 19:44 200 mg QDD LINETTE Administration Amlodipine Besylate 10 mg 05/02/24 20:00 05/10/24 15:55 Amlodipine Besylate 5 Mg Tab PO 06/01/24 19:59 10 mg QDD LINETTE Administration Artificial Tears 1 drops 05/02/24 21:00 05/10/24 15:54 Artificial Tears OP 06/01/24 20:59 1 drops QID LINETTE Administration Aspirin 325 mg 05/03/24 09:00 05/10/24 08:03 Aspirin 325 Mg Ectab PO 06/02/24 08:59 325 mg QAM LINETTE Administration Buspirone HCl 5 mg 05/02/24 19:12 05/04/24 08:14 Buspirone 5 Mg Tab PO 06/01/24 19:11 5 mg BID PRN Administration Anxiety Cyanocobalamin 500 mcg 05/03/24 09:00 05/09/24 08:26 Cyanocobalamin (B-12) 500 Mcg Tablet PO 06/02/24 08:59 500 mcg Q2D LINETTE Administration Diclofenac Sodium 2 gm 05/04/24 10:20 05/08/24 21:52 Diclofenac Sod 1% Gel 100 Gm Tube EXT 06/03/24 13:59 2 gm TID PRN Administration Pain Protocol Furosemide 40 mg 05/08/24 09:00 05/10/24 15:55 Furosemide 40 Mg Tab PO 06/07/24 08:59 40 mg [id number] LINETTE Administration Heparin Sodium (Porcine) 5,000 units 05/02/24 22:00 05/10/24 08:04 Heparin Sod 5,000 Unit/0.5 Ml Vial SQ 06/01/24 21:59 Not Given Q8 LINETTE Levothyroxine Sodium 75 mcg 05/03/24 06:30 05/10/24 06:23 Levothyroxine Sodium 75 Mcg Tablet PO 06/02/24 06:29 75 mcg DAILYBB LINETTE Administration Magnesium Oxide 400 mg 05/03/24 09:00 05/10/24 08:03 Magnesium Oxide 400 Mg Tab PO 06/02/24 08:59 400 mg DAILY LINETET Administration Metoprolol Succinate 50 mg 05/02/24 21:00 05/10/24 08:03 Metoprolol Succ 50mg Ext Rel Tab PO 06/01/24 20:59 50 mg BID LINETTE Administration Multivitamins/Minerals 1 tab 05/03/24 09:00 05/10/24 08:03 Cerovite Adv Formula Tab PO 06/02/24 08:59 1 tab DAILY LINETTE Administration Sodium Chloride 1 gm 05/02/24 21:00 05/10/24 08:03 Sodium Chloride 1 Gm Tablet PO 06/01/24 20:59 1 gm BID LINETTE Administration (1) Acute exacerbation of CHF (congestive heart failure) Heart failure type: diastolic Qualified Code(s): I50.33 - Acute on chronic diastolic (congestive) heart failure (3) CKD (chronic kidney disease), stage III Chronic kidney disease stage 3 subtype: unspecified whether 3a or 3b Qualified Code(s): N18.30 - Chronic kidney disease, stage 3 unspecified (5) Hypothyroidism Hypothyroidism type: unspecified Qualified Code(s): E03.9 - Hypothyroidism, unspecified (6) Hypertension Hypertension type: primary hypertension Qualified Code(s): I10 - Essential (primary) hypertension
[2024-05-10 11:52] LABS: BUN Creatinine Ratio 19.8 (10-20); Calcium 9.7 mg/dl (8.6-10.3); Creatinine Clr Calc Pharmacy 26.3 ml/min; Potassium 4.1 mmol/L (3.5-5.1)
[2024-05-11] MEDS: POLYETHYLENE (MIRALAX) 17 GM PACK PO PRN (11:18)
--- NOTE | 2024-05-11 11:52 | Hospitalist Progress Note ---
Date of Service May 11, 2024 Assessment & Plan (1) Acute exacerbation of CHF (congestive heart failure): Plan: Ms. Carlson is an 84 y/o female with PAF, chronic HFpEF, LBBB, moderate to severe MR, moderate AI, CKD3, hypothyroidism, SIADH, GERD, and other history as outlined below who was admitted for acute heart failure exacerbation. Work-up in the ED consistent with acute on chronic HFpEF despite reported compliance with home regimen including furosemide 40 mg daily. Patient now on room air and on PO lasix BID after IV diuresis #PEYTON on CKD Cr 1.21 , hold lasix, repeat bmp #Acute HFpEF #Valvular heart disease :Aortic insufficiency, Mitral regurgitation #Hypoxia secondary to above resolved --CXR:Cardiomegaly and mild pulmonary edema. Small bilateral pleural effusions. --BNP 652 --ECHO: Left ventricle systolic function is normal. Left atrium is mildly dilated. Mild to moderate aortic regurgitation. Moderate mitral regurgitation. Right ventricular systolic pressure is elevated at 40 to 50 mmHg. Diastolic dysfunction, grade 3 consistent with marked congestive heart failure Completed IV lasix 80mg BI Transitioned to p.o. Lasix 40 twice daily -- Appreciate cardiology input --Monitor I's and O's, daily weight --Weaned off of supplemental oxygen Follow up OP cardiology #PAF continue amiodarone no longer on eliquis full dose asa #Suspected UTI Vs bacteriuria--likely bacteriuria given no symptoms Patient denies any UTI symptoms Urine culture grew E. coli: Also noted on prior cultures Empirically on Rocephin--completed 3-day course Dispo: pending rehab Downgrade to med surg (2) Acute hypoxic respiratory failure: Plan: Management as above (3) CKD (chronic kidney disease), stage III: Plan: chronic, stable Monitor labs with diuresis Avoid nephrotoxic agents as able (4) Paroxysmal atrial fibrillation: Plan: Chronic, stable Continue amiodarone, metoprolol Not on AC due to falls and prior GI bleeding (5) Hypothyroidism: Plan: Chronic, stable Continue levothyroxine (6) Hypertension: Plan: Chronic, stable Continue home regimen (7) Hyponatremia with decreased serum osmolality: Plan: Chronic, stable Continue sodium chloride tablets Plan Code status: DNR/DNI DVT prophylaxis: SQ heparin Disposition Rehab as able Admission and Anticipated Discharge Date Admission Date: May 02, 2024 Subjective NAEO states she is just ready to go, but denies any new concerns Physical Exam Constitutional: WD/WN, vitals as above Respiratory: normal respiratory effort, lungs clear to auscultation Cardiovascular: RRR, no murmur, no edema Results & Data Results & Data Vital Signs (Past 12 Hours) Vital Signs Temp Pulse Resp BP Pulse Ox O2 Del Method 05/11/24 11:31 96 05/11/24 07:25 36.9 C 56 L 16 120/61 96 Room Air 05/11/24 07:19 Room Air Medications Administered Home Medications Medication Instructions Recorded Confirmed Last Taken aspirin 325 mg tablet 325 mg PO QAM #100 tabs 01/28/19 05/02/24 01/28/24 levothyroxine 75 mcg capsule 75 mcg PO DAILYBB 03/14/19 05/02/24 01/28/24 amlodipine 10 mg tablet 10 mg PO QDD #90 tabs 03/21/20 05/02/24 01/27/24 diclofenac sodium 1 % topical gel 2 g topical QID PRN Pain 05/27/21 05/02/24 05/27/21 buspirone 5 mg tablet 5 mg PO BID PRN Anxiety 07/18/22 05/02/24 Unknown cyanocobalamin (vitamin B-12) 1,000 mcg PO Q OTHER DAY 07/18/22 05/02/24 11/27/23 1,000 mcg tablet multivitamin with minerals 1 tab PO DAILY 07/18/22 05/02/24 01/28/24 (Multiple Vitamin-Minerals tablet) furosemide 40 mg tablet 40 mg PO QAM #90 tabs 06/11/23 05/02/24 01/28/24 sodium chloride 1,000 mg soluble 1,000 mg PO BID #180 tabs 07/07/23 05/02/24 01/28/24 tablet calcium 600 mg (as 1 tab PO DAILY 11/27/23 05/02/24 01/28/24 carbonate)-vitamin D3 10 mcg (400 unit) tablet (Calcium 600 + D(3)) magnesium oxide 500 mg PO DAILY 11/27/23 05/02/24 01/28/24 peg 400-propylene glycol 0.4 %-0.3 1 drp ophthalmic (eye) QID 11/27/23 05/02/24 01/28/24 % eye drops (Systane Ultra) potassium gluconate 600 mg (99 mg) 600 mg PO DAILY 11/27/23 05/02/24 01/28/24 tablet vit C 250 mg-vit E 90 mg-zinc 40 2 tab PO DAILY 11/27/23 05/02/24 01/28/24 mg-copper 1 jp-xuseyg-ugodwy capsule (PreserVision AREDS-2) L.acidop,casei,lactis,rham-B.lact,nicole 2 cap PO DAILY #30 caps 02/21/24 05/02/24 Unknown 625 mg (10 billion cell) capsule (Advanced Probiotic) metoprolol succinate 50 mg 50 mg PO BID #180 tabs 04/11/24 05/02/24 Unknown tablet,extended release 24 hr amiodarone 200 mg tablet 200 mg PO QDD #90 tabs 05/11/24 Unknown Active Medications Generic Name Dose Route Start Last Admin Trade Name Freq PRN Reason Stop Dose Admin Acetaminophen 650 mg 05/02/24 13:01 05/10/24 23:26 Acetaminophen 325 Mg Tab PO 06/01/24 13:00 650 mg Q4H PRN Administration Pain or Fever Amiodarone HCl 200 mg 05/02/24 19:45 05/10/24 15:55 Amiodarone 200 Mg Tab PO 06/01/24 19:44 200 mg QDD LINETTE Administration Amlodipine Besylate 10 mg 05/02/24 20:00 05/10/24 15:55 Amlodipine Besylate 5 Mg Tab PO 06/01/24 19:59 10 mg QDD LINETTE Administration Artificial Tears 1 drops 05/02/24 21:00 05/11/24 11:19 Artificial Tears OP 06/01/24 20:59 1 drops QID LINETTE Administration Aspirin 325 mg 05/03/24 09:00 05/11/24 07:32 Aspirin 325 Mg Ectab PO 06/02/24 08:59 325 mg QAM LINETTE Administration Buspirone HCl 5 mg 05/02/24 19:12 05/04/24 08:14 Buspirone 5 Mg Tab PO 06/01/24 19:11 5 mg BID PRN Administration Anxiety Cyanocobalamin 500 mcg 05/03/24 09:00 05/11/24 07:32 Cyanocobalamin (B-12) 500 Mcg Tablet PO 06/02/24 08:59 500 mcg Q2D LINETTE Administration Diclofenac Sodium 2 gm 05/04/24 10:20 05/10/24 21:06 Diclofenac Sod 1% Gel 100 Gm Tube EXT 06/03/24 13:59 2 gm TID PRN Administration Pain Protocol Furosemide 40 mg 05/08/24 09:00 05/11/24 07:32 Furosemide 40 Mg Tab PO 06/07/24 08:59 40 mg [id number] LINETTE Administration Heparin Sodium (Porcine) 5,000 units 05/02/24 22:00 05/11/24 11:20 Heparin Sod 5,000 Unit/0.5 Ml Vial SQ 06/01/24 21:59 Not Given Q8 ILNETTE Levothyroxine Sodium 75 mcg 05/03/24 06:30 05/11/24 05:44 Levothyroxine Sodium 75 Mcg Tablet PO 06/02/24 06:29 75 mcg DAILYBB LINETTE Administration Magnesium Oxide 400 mg 05/03/24 09:00 05/11/24 07:32 Magnesium Oxide 400 Mg Tab PO 06/02/24 08:59 400 mg DAILY LINETTE Administration Metoprolol Succinate 50 mg 05/02/24 21:00 05/11/24 07:32 Metoprolol Succ 50mg Ext Rel Tab PO 06/01/24 20:59 Not Given BID LINETTE Multivitamins/Minerals 1 tab 05/03/24 09:00 05/11/24 07:32 Cerovite Adv Formula Tab PO 06/02/24 08:59 1 tab DAILY LINETTE Administration Polyethylene Glycol 17 gm 05/11/24 11:11 05/11/24 11:18 Polyethylene (Miralax) 17 Gm Pack PO 06/10/24 11:10 17 gm DAILY PRN Administration Constipation Sodium Chloride 1 gm 05/02/24 21:00 05/11/24 07:32 Sodium Chloride 1 Gm Tablet PO 06/01/24 20:59 1 gm BID LINETTE Administration (1) Acute exacerbation of CHF (congestive heart failure) Heart failure type: diastolic Qualified Code(s): I50.33 - Acute on chronic diastolic (congestive) heart failure (3) CKD (chronic kidney disease), stage III Chronic kidney disease stage 3 subtype: unspecified whether 3a or 3b Qualified Code(s): N18.30 - Chronic kidney disease, stage 3 unspecified (5) Hypothyroidism Hypothyroidism type: unspecified Qualified Code(s): E03.9 - Hypothyroidism, unspecified (6) Hypertension Hypertension type: primary hypertension Qualified Code(s): I10 - Essential (primary) hypertension
[2024-05-11 12:52] LABS: BUN Creatinine Ratio 20.3 (10-20); Calcium 9.8 mg/dl (8.6-10.3); Creatinine Clr Calc Pharmacy 21.6 ml/min; Potassium 3.9 mmol/L (3.5-5.1)
[2024-05-11] MEDS: SODIUM CHLORIDE 0.9% 500 ML IV ONE (17:05)
[2024-05-12 08:33] VITALS: RESP 17
[2024-05-12 08:52] LABS: BUN Creatinine Ratio 23.2 (10-20); Calcium 9.3 mg/dl (8.6-10.3); Creatinine Clr Calc Pharmacy 29.1 ml/min; Potassium 4.2 mmol/L (3.5-5.1)
--- NOTE | 2024-05-12 10:54 | Discharge Summary ---
Discharge Summary Date of Service May 12, 2024 Principal Dx & Hospital Course #1 = Principal Diagnosis (1) Acute exacerbation of CHF (congestive heart failure): Ms. Carlson is an 84 y/o female with PAF, chronic HFpEF, LBBB, moderate to severe MR, moderate AI, CKD3, hypothyroidism, SIADH, GERD, and other history as outlined below who was admitted for acute heart failure exacerbation. Work-up in the ED consistent with acute on chronic HFpEF despite reported compliance with home regimen including furosemide 40 mg daily. Patient now on room air and on PO lasix BID after IV diuresis Course noted for PEYTON while on BID lasix. Resolved with reduction to lasix daily. Discussed weight gain and plan to call Astrophysics Teacher with patient who verbalized understanding and plan for close follow up. #PEYTON on CKD resolved Cr 1.21--back to baseline on discharge resume lasix daily #Acute HFpEF #Valvular heart disease :Aortic insufficiency, Mitral regurgitation #Hypoxia secondary to above resolved --CXR:Cardiomegaly and mild pulmonary edema. Small bilateral pleural effusions. --BNP 652 --ECHO: Left ventricle systolic function is normal. Left atrium is mildly dilated. Mild to moderate aortic regurgitation. Moderate mitral regurgitation. Right ventricular systolic pressure is elevated at 40 to 50 mmHg. Diastolic dysfunction, grade 3 consistent with marked congestive heart failure Completed IV lasix 80mg BI Transitioned to p.o. Lasix 40 twice daily initiailly however peyton noted, resolved with daily use -- Appreciate cardiology input --Monitor I's and O's, daily weight --Weaned off of supplemental oxygen Follow up OP cardiology #PAF continue amiodarone no longer on eliquis full dose asa #Suspected UTI Vs bacteriuria--likely bacteriuria given no symptoms Patient denies any UTI symptoms Urine culture grew E. coli: Also noted on prior cultures Empirically on Rocephin--completed 3-day course \ (2) Acute hypoxic respiratory failure: Management as above (3) CKD (chronic kidney disease), stage III: chronic, stable Monitor labs with diuresis Avoid nephrotoxic agents as able (4) Paroxysmal atrial fibrillation: Chronic, stable Continue amiodarone, metoprolol Not on AC due to falls and prior GI bleeding (5) Hypothyroidism: Chronic, stable Continue levothyroxine (6) Hypertension: Chronic, stable Continue home regimen (7) Hyponatremia with decreased serum osmolality: Chronic, stable Continue sodium chloride tablets Notes For Next Care Provider Medication Changes From Visit 35 Admission HPI Per Admitting Provider This is an 84 y/o female with PAF, chronic HFpEF, LBBB, moderate to severe MR, moderate AI, CKD3, hypothyroidism, SIADH, GERD, and other history as outlined below who presents to the ED with chest pain and MASSEY. Pt's Epic chart was extensively reviewed including [facility] notes. Pt was treated for shingles earlier this month with a seven day course of Valtrex, which she reportedly completed. More recently started on gabapentin for presumed neuropathic pain but this was discontinued yesterday due to concern that it was causing hypoxia at home as pt's home pulse ox was reading in the upper 80s to low 90s. Last night, she felt fine when she went to bed other than a dry cough. She does report intermittent issues with shortness of breath over the last several days. She denies fevers, chills, N/V/D, abdominal pain, or urinary issues. Overnight, she became more short of breath and developed intermittent chest pain. Shortness of breath is worse with exertion. Admission Exam Per Admitting Provider On exam, General: Elderly woman in no acute distress Eyes: PERRL, conjunctivae normal, not pale, anicteric sclerae, EOM intact bilaterally ENMT: +Hearing deficits Respiratory: On nasal cannula, +Basilar crackles Cardiovascular: RRR s1 s2 Gastrointestinal (Abdomen): Abdomen is not distended, soft, non-tender to palpation, no guarding, no palpable hepatosplenomegaly, normal bowel sounds Musculoskeletal: Bilateral pitting pedal edema Skin: Rash under right breast, healing Neurologic: No focal weakness, sensation grossly intact Psychiatric: Alert and oriented x 3, euthymic affect Discharge Exam Constitutional WD/WN, vitals as above Respiratory normal respiratory effort, lungs clear to auscultation Cardiovascular RRR, no murmur, no edema Gastrointestinal (Abdomen) normal bowel sounds, soft, nontender, no hepatosplenomegaly Updated Medication List Medication Instructions Recorded Confirmed Type aspirin 325 mg tablet 325 mg PO QAM #100 tabs 01/28/19 05/02/24 History levothyroxine 75 mcg capsule 75 mcg PO DAILYBB 03/14/19 05/02/24 History amlodipine 10 mg tablet 10 mg PO QDD #90 tabs 03/21/20 05/02/24 Rx diclofenac sodium 1 % topical gel 2 g topical QID PRN Pain 05/27/21 05/02/24 History buspirone 5 mg tablet 5 mg PO BID PRN Anxiety 07/18/22 05/02/24 History cyanocobalamin (vitamin B-12) 1,000 mcg PO Q OTHER DAY 07/18/22 05/02/24 History 1,000 mcg tablet multivitamin with minerals 1 tab PO DAILY 07/18/22 05/02/24 History (Multiple Vitamin-Minerals tablet) furosemide 40 mg tablet 40 mg PO QAM #90 tabs 06/11/23 05/02/24 Rx sodium chloride 1,000 mg soluble 1,000 mg PO BID #180 tabs 07/07/23 05/02/24 Rx tablet calcium 600 mg (as 1 tab PO DAILY 11/27/23 05/02/24 History carbonate)-vitamin D3 10 mcg (400 unit) tablet (Calcium 600 + D(3)) magnesium oxide 500 mg PO DAILY 11/27/23 05/02/24 History peg 400-propylene glycol 0.4 %-0.3 1 drp ophthalmic (eye) QID 11/27/23 05/02/24 History % eye drops (Systane Ultra) potassium gluconate 600 mg (99 mg) 600 mg PO DAILY 11/27/23 05/02/24 History tablet vit C 250 mg-vit E 90 mg-zinc 40 2 tab PO DAILY 11/27/23 05/02/24 History mg-copper 1 rb-fjlffe-sjtshw capsule (PreserVision AREDS-2) L.acidop,casei,lactis,rham-B.lact,nicole 2 cap PO DAILY #30 caps 02/21/24 05/02/24 Rx 625 mg (10 billion cell) capsule (Advanced Probiotic) metoprolol succinate 50 mg 50 mg PO BID #180 tabs 04/11/24 05/02/24 Rx tablet,extended release 24 hr amiodarone 200 mg tablet 200 mg PO QDD #90 tabs 05/11/24 Rx Hospital Stay Data Consultations 05/02/24 11:29 ED Decision to Admit Stat 05/02/24 13:01 Consult Cardiology Routine Pending Results Patient Have Any Pending Studies at Discharge: No Discharge Instructions Given to Patient (Per Discharging Provider) You were in the hospital to have your heart failure treated. Heart failure occurs when the muscles of your heart are weak or have trouble relaxing, or both. While you were in the hospital: * Your health care team closely adjusted the fluids you drank or received throu gh an intravenous (IV) line. They also watched and measured how much urine you produced. * You may have received medicines to help your body get rid of extra fluids. Follow-up with your primary care physician Dr. Lizarraga in 1 week upon discharge from rehab facility Follow-up with your top stop attacher in 3 to 4 weeks --Please continue your original Lasix dose of 40mg daily and see your Astrophysics Teacher Please call your Astrophysics Teacher's office if you gain more than 2 pounds (lb) (1 kilogram, kg) in a day, or 5 lb (2 kg) in a week Limit fluids to 6 to 9 cups (1.5 to 2 liters) a day. You will need toeat less salt. Salt can make you thirsty, and being thirsty can cause you to drink too much fluid. Extra salt also makes fluid stay in your body. Lots of foods that do not taste salty, or that you do not add salt to, still contain a lot of salt. Do not drink alcohol. Total Time Total Time Spent Total Time Spent (In Minutes): 45
[2024-05-12 11:47] VITALS: BP 144/61; PULSE 55; TEMP 97.7; O2SAT 94
== END 2024-05-12 12:05 | DRG 291 ==
LOC: ED 09:30 → 2W 11:47 → SUATTDRO 11:47 → 2W 14:52

== ENCOUNTER 2024-06-25 05:31 | Inpatient (IN) ==
[2024-06-25 05:56] LABS: Basophils # (auto) 0.06 K/uL (0.00-0.20); Basophils % (auto) 0.4 %; Eosinophils # (auto) 0.02 K/uL (0.00-0.50); Eosinophils % (auto) 0.1 %; Hemoglobin 11.1 g/dl (12.0-16.0); Immature Granulocytes # (auto) 0.08 K/uL (0.01-0.20); Immature Granulocytes % (auto) 0.6 %; Lymphocytes # (auto) 0.61 K/uL (1.20-3.40); Lymphocytes % (auto) 4.6 %; Mean Corpuscular Hemoglobin 31.1 pg (25.0-34.0); Mean Corpuscular Hgb Conc 32.6 g/dL (32.0-36.0); Mean Corpuscular Volume 95.2 fL (80.0-100.0); Mean Platelet Volume 10.7 fL (9.4-12.4); Monocytes # (auto) 1.33 K/uL (0.11-0.59); Neutrophils # (auto) 11.26 K/uL (1.40-6.50); Neutrophils % (auto) 84.3 %; Platelet Count 193 K/uL (130-400); RDW Coefficient of Variation 15.5 % (11.5-14.5); RDW Standard Deviation 54.2 fL (36.4-46.3); Red Blood Count 3.57 M/uL (4.20-5.40); White Blood Count 13.36 K/ul (4.8-10.8)
[2024-06-25 06:18] LABS: Appearance Urine Turbid (Clear); Bacteria Urine Automated 4+ (None Seen); Bilirubin Urine Negative (Negative); Blood Urine Negative (Negative); Cast Urine Automated 0-2 /lpf (0-2); Color Urine Yellow; Epithelial Cell Urine Auto 0-2 /hpf (0-2); Glucose Urine UA Negative (Negative); Ketones Urine Negative (Negative); Leukocyte Esterase Urine 2+ (Negative); Nitrite Urine Positive (Negative); Protein Urine 1+ (Negative); Specific Gravity Urine 1.017 (1.000-1.030); Urobilinogen Urine Negative (Negative); WBC Urine Automated >50 /hpf (0-5)
[2024-06-25 06:34] LABS: Albumin Level 4.1 gm/dl (3.4-5.0); Bilirubin,Total 0.6 mg/dl (0.2-1.0); Calcium 9.8 mg/dl (8.6-10.3); Creatinine Clr Calc Pharmacy 33.2 ml/min; Globulin 4.1 gm/dl (2.5-4.0); Potassium 4.1 mmol/L (3.5-5.1); Total Protein 8.2 gm/dl (6.0-8.3)
[2024-06-25 06:39] LABS: Troponin I High Sensitivity 11.2 pg/ml (0-14)
[2024-06-25] MEDS: cefTRIAXone SODIUM 2,000 MG/50 ML BAG IV STA (06:41)
[2024-06-25] MEDS: ACETAMINOPHEN 1,000 MG/100 ML VIAL IV STA (06:42)
--- NOTE | 2024-06-25 06:44 | Emergency Department Note ---
Impression & Plan Hydronephrosis, Urinary tract infection ED Provider Note NAME: JEN GALLOWAY AGE: 84 SEX: F : 1940 ARRIVES VIA: Ambulance INFORMANT: Patient, ED PROVIDER(S): Julio César Carter DO CHIEF COMPLAINT: Abdominal discomfort HPI: The patient is an 84-year-old female who presented to the emergency department for an evaluation of abdominal discomfort. She states the pain is mild but she notices a discomfort in her lower abdomen that goes into her back. She denies having any vomiting or nausea. She said no fever but she states she has had some chills. She has had similar episodes in the past when she has had a urinary tract infection. The patient denies having any chest pain or difficulty breathing. She states that she last had a urinary tract infection in April 2024. She has a history of atrial fibrillation. She states that she has been compliant with her outpatient medications otherwise. ROS: See above HPI for pertinent positives & negatives. A total of 10 systems reviewed and were otherwise negative. PAST MEDICAL HISTORY: See Below PAST SURGICAL HISTORY: See Below FAMILY HISTORY: See Below SOCIAL HISTORY: See Below HOME MEDICATIONS: See Below ALLERGIES: See Below VITALS: See Below PHYSICAL EXAMINATION: GENERAL: Patient is awake alert in no acute distress patient is resting comfortably and showing no signs of anxiety EYES: The conjunctivae are clear. The pupils are round and reactive. EARS, NOSE, MOUTH AND THROAT: The nose is without any evidence of any deformity. Mucous membranes are moist. Tongue is midline. NECK: The neck is nontender and supple. RESPIRATORY: Rhonchi were noted at both lung ludwig. There is no tachypnea or conversational dyspnea. CARDIOVASCULAR: Irregular heart sounds were noted to auscultation. Systolic murmur suggested. GASTROINTESTINAL: The abdomen is soft. Abdomen is nontender. MUSCULOSKELETAL/EXTREMITIES: There is no evidence of gross deformity full range of motion is noted in the hips and shoulders. SKIN: Chronic venous stasis changes were noted in both lower extremities. There is no significant pedal edema. NEUROLOGIC: Patient is awake alert and oriented x3 MEDICAL DECISION MAKING: The patient is an 84-year-old female who presented to the emergency department for an evaluation of abdominal pain. The patient noticed abdominal pain with radiation to the back. She was found to have signs of urinary tract infection. She was treated with IV antibiotics. She was reevaluated multiple times. The patient does appear to have had multiple urine infections with one as recently as April of this year. She is unsure why she continues to get these infections. Given her elevated white blood cell count as well as her frequent infections further imaging was obtained including CT of the abdomen pelvis. This appears to be consistent with hydronephrosis and a ureteral calculus. The calculus is small although this could be the cause of her recurrent urine infections. I discussed her condition with the on-call [facility] hospitalist. I also discussed her condition with the on-call urologist. They have agreed to evaluate the patient for further management and disposition. Triage Nursing notes reviewed. Prior medical records reviewed Vital Signs: reviewed and remarkable for elevated blood pressure. Differential diagnosis: Etiologies such as appendicitis, diverticulitis, obstruction, inflammatory bowel disease, renal colic, PUD, biliary pathology, pancreatitis, mesenteric ischemia, aortic pathology, infections, genitourinary, UTI, perforated viscus, as well as others were entertained. ER treatment provided: See below Diagnostics interpreted by me: ECG: EKG was obtained in the emergency department. My interpretation is sinus rhythm with first-degree AV block at 71 bpm. The left bundle branch block pattern was favored. There were no PVCs noted. This was compared to a tracing from May 02, 2024. No changes were noted. Cardiac Monitoring: An order was placed for continuous cardiac monitoring. The monitor shows a rate of 60 bpm with sinus rhythm. Laboratory studies: As stated above and show below. Imaging studies: See below. Radiographic imaging was reviewed by myself Consultation(s): I discussed this case with Dr. [facility] discussed this case with Dr. Hutchinson who is on for urology. Past Med/Surg History Problem List (Updated 06/25/24 @ 13:38 by Julio César Carter DO) Urinary tract infection (Acute) Hydronephrosis (Acute) Right ureteral stone Generalized weakness (Acute) Macular degeneration Cat scratch High serum calcium (Acute) Acute hyponatremia (Acute) UTI (urinary tract infection) (Acute) Complicated UTI (urinary tract infection) Chronic kidney disease, stage 3a CKD (chronic kidney disease), stage III Paroxysmal atrial fibrillation Hypothyroidism Hypertension (HFpEF) heart failure with preserved ejection fraction Aortic insufficiency Mitral regurgitation Bilateral pleural effusion (Acute) On amiodarone therapy Anemia (Acute) Bilateral pneumonia Abrasion of right elbow (Acute) Contusion of right hip (Acute) Elevated blood pressure, situational (Acute) Infection of wound hematoma Medical History Pulmonary edema Elevated brain natriuretic peptide (BNP) level Acute hypoxic respiratory failure Acute dyspnea Acute exacerbation of CHF (congestive heart failure) Hyponatremia with decreased serum osmolality Shortness of breath Hypoxic Acute respiratory failure with hypoxia SOB (shortness of breath) Mitral regurgitation Chronic heart failure with preserved ejection fraction Atypical chest pain GERD (gastroesophageal reflux disease) Pneumonia Chest pain Chest pain Diverticulitis Afib Surgical History History of umbilical hernia repair incarcerated - unknown age Hx of hernia repair right inguinal 2013 Hx of cholecystectomy Hx of hysterectomy Family History Mother Stroke Social History Smoking Status: Never smoker Second Hand Exposure: No; Do You Dip or Chew Tobacco: No; Hx Alcohol Use: No Hx Substance Use: No Preferred Language: Ug[place] Communication Ability: Effective Title Insurance Sales Representative Required: No Beliefs That Will Affect Care: None marital status: Current Living Situation: Alone Current Living Situation Comment: Has an aide who comes over current occupational status: retired How many Children do You have: 3 Feels Safe at Home: Yes Assistive Devices: Walker and Wheelchair Allergies Allergies Allergy/AdvReac Type Severity Reaction Status Date / Time Quinolones Allergy Intermediate HIVES Verified 03/10/24 10:07 dabigatran etexilate Allergy Unknown ON Verified 03/10/24 10:07 ISINGER MED LIST metronidazole AdvReac Intermediate GI SYMPTOMS Verified 03/10/24 10:07 sulfamethoxazole AdvReac Mild GI SYMPTOMS Verified 03/10/24 10:07 trimethoprim AdvReac Mild GI SYMPTOMS Verified 03/10/24 10:07 Home Meds Home Medications Medication Instructions Recorded Confirmed aspirin 325 mg tablet 325 mg PO QAM #100 tabs 01/28/19 06/25/24 levothyroxine 75 mcg capsule 75 mcg PO DAILYBB 03/14/19 06/25/24 diclofenac sodium 1 % topical gel 2 g topical QID PRN Pain 05/27/21 06/25/24 buspirone 5 mg tablet 5 mg PO BID PRN Anxiety 07/18/22 06/25/24 cyanocobalamin (vitamin B-12) 1,000 mcg PO Q OTHER DAY 07/18/22 06/25/24 1,000 mcg tablet multivitamin with minerals 1 tab PO DAILY 07/18/22 06/25/24 (Multiple Vitamin-Minerals tablet) calcium 600 mg (as 1 tab PO DAILY 11/27/23 06/25/24 carbonate)-vitamin D3 10 mcg (400 unit) tablet (Calcium 600 + D(3)) magnesium oxide 500 mg PO DAILY 11/27/23 06/25/24 peg 400-propylene glycol 0.4 %-0.3 1 drp ophthalmic (eye) QID 11/27/23 06/25/24 % eye drops (Systane Ultra) potassium gluconate 600 mg (99 mg) 600 mg PO DAILY 11/27/23 06/25/24 tablet vit C 250 mg-vit E 90 mg-zinc 40 2 tab PO DAILY 11/27/23 06/25/24 mg-copper 1 no-vwpqfj-[id number] capsule (PreserVision AREDS-2) Previous Rx's Medication Instructions Recorded amlodipine 10 mg tablet 10 mg PO QDD #90 tabs 03/21/20 sodium chloride 1,000 mg soluble 1,000 mg PO BID #180 tabs 07/07/23 tablet L.acidop,casei,lactis,rham-B.lact,nicole 2 cap PO DAILY #30 caps 02/21/24 625 mg (10 billion cell) capsule (Advanced Probiotic) metoprolol succinate 50 mg 50 mg PO BID #180 tabs 04/11/24 tablet,extended release 24 hr amiodarone 200 mg tablet 200 mg PO QDD #90 tabs 05/11/24 furosemide 40 mg tablet 40 mg PO QAM #90 tabs 06/02/24 Results & Data (ED) Vital Signs Vital Signs - 24 hr 06/25/24 05:39 06/25/24 05:40 06/25/24 05:45 Temperature 37.1 C Temperature Source Oral Pulse Rate 72 71 76 Pulse Rate from SpO2 Sensor 74 Respiratory Rate 20 18 Blood Pressure 148/80 H Blood Pressure Mean 102 Pulse Oximetry 98 88 L Oxygen Delivery Method Nasal Cannula Room Air Oxygen Flow Rate 2 Sepsis Recent Fever Within 48 Hours No Sepsis New/Unexplained Change in Mental Status No Sepsis Action Taken by Nursing No Action Required 06/25/24 06:00 06/25/24 06:30 06/25/24 07:14 Temperature Temperature Source Pulse Rate 68 Pulse Rate from SpO2 Sensor 69 Respiratory Rate 23 Blood Pressure 126/79 Blood Pressure Mean 85 Pulse Oximetry 97 97 Oxygen Delivery Method Nasal Cannula Nasal Cannula Oxygen Flow Rate 2 2 Sepsis Recent Fever Within 48 Hours Sepsis New/Unexplained Change in Mental Status Sepsis Action Taken by Nursing 06/25/24 07:18 06/25/24 07:36 06/25/24 08:00 Temperature Temperature Source Pulse Rate 66 60 Pulse Rate from SpO2 Sensor 66 61 Respiratory Rate 23 23 Blood Pressure 136/55 L Blood Pressure Mean 104 Pulse Oximetry 97 96 Oxygen Delivery Method Oxygen Flow Rate Sepsis Recent Fever Within 48 Hours Sepsis New/Unexplained Change in Mental Status Sepsis Action Taken by Nursing 06/25/24 08:00 06/25/24 08:30 06/25/24 08:30 Temperature Temperature Source Pulse Rate 63 60 Pulse Rate from SpO2 Sensor 57 L Respiratory Rate 23 23 Blood Pressure 131/54 L Blood Pressure Mean 92 Pulse Oximetry 96 Oxygen Delivery Method Oxygen Flow Rate Sepsis Recent Fever Within 48 Hours Sepsis New/Unexplained Change in Mental Status Sepsis Action Taken by [facility] Medications Current Medication List: was personally reviewed by me Laboratory Data Attestation: I reviewed the patient's lab results. 06/25/24 05:45 06/25/24 05:45 Lab Results 06/25/24 Range/Units 05:45 WBC 13.36 H (4.8-10.8) K/ul RBC 3.57 L (4.20-5.40) M/uL Hgb 11.1 L (12.0-16.0) g/dl Hct 34.0 L (37.0-47.0) % MCV 95.2 (80.0-100.0) fL MCH 31.1 (25.0-34.0) pg MCHC 32.6 (32.0-36.0) g/dL RDW Std Deviation 54.2 H (36.4-46.3) fL RDW Coeff of Ursula 15.5 H (11.5-14.5) % Plt Count 193 (130-400) K/uL MPV 10.7 (9.4-12.4) fL Immature Gran % (Auto) 0.6 % Neut % (Auto) 84.3 % Lymph % (Auto) 4.6 % Geary % (Auto) 10.0 % Eos % (Auto) 0.1 % Baso % (Auto) 0.4 % Neut # (Auto) 11.26 H (1.40-6.50) K/uL Lymph # (Auto) 0.61 L (1.20-3.40) K/uL Geary # (Auto) 1.33 H (0.11-0.59) K/uL Eos # (Auto) 0.02 (0.00-0.50) K/uL Baso # (Auto) 0.06 (0.00-0.20) K/uL Immature Gran # (Auto) 0.08 (0.01-0.20) K/uL Sodium 137 (136-145) mmol/L Potassium 4.1 (3.5-5.1) mmol/L Chloride 102 (98-107) mmol/L Carbon Dioxide 27 (21-32) mmol/L Anion Gap 8 (3-11) BUN 20 (6-23) mg/dl Creatinine 1.05 (0.6-1.2) mg/dl Est Cr Clr Drug Dosing 33.2 ml/min eGFR 51.75 BUN/Creatinine Ratio 19.0 (10-20) Glucose 113 H (70-99(Fasting)) mg/dl Calcium 9.8 (8.6-10.3) mg/dl Total Bilirubin 0.6 (0.2-1.0) mg/dl AST 22 (13-39) U/L ALT 12 (7-52) U/L Alkaline Phosphatase 82 (34-104) U/L Troponin I High Sens 11.2 (0-14) pg/ml Total Protein 8.2 (6.0-8.3) gm/dl Albumin 4.1 (3.4-5.0) gm/dl Globulin 4.1 H (2.5-4.0) gm/dl Albumin/Globulin Ratio 1.0 (0.9-2) Lipase 24 (11-82) U/L Urine Color Yellow Urine Appearance Turbid A (Clear) Urine pH 8.0 H (4.5-7.5) Ur Specific [place] 1.017 (1.000-1.030) Urine Protein 1+ H (Negative) Urine Glucose (UA) Negative (Negative) Urine Ketones Negative (Negative) Urine Blood Negative (Negative) Urine Nitrite Positive A (Negative) Urine Bilirubin Negative (Negative) Urine Urobilinogen Negative (Negative) Ur Leukocyte Esterase 2+ H (Negative) Urine WBC (Auto) >50 H (0-5) /hpf Urine RBC (Auto) 6-10 H (0-2) /hpf U Hyaline Cast (Auto) 0-2 (0-2) /lpf U Epithel Cells (Auto) 0-2 (0-2) /hpf Urine Bacteria (Auto) 4+ H (None Seen) Administered Medications Furosemide (Furosemide Inj 20 Mg/2 Ml Vial) 20 mg IV [id number] [facility] Stop: 07/25/24 08:49 Last Admin: 06/25/24 09:24 Dose: 20 mg Documented By: SHI Discontinued Medications Acetaminophen (Ofirmev) 1,000 mg in 100 mls @ 400 mls/hr IV NOW STA Stop: 06/25/24 06:40 Last Admin: 06/25/24 06:42 Dose: Not Given Documented By: MARGARET Ceftriaxone Sodium (Rocephin) 2,000 mg in 50 mls @ 100 mls/hr IV NOW STA Stop: 06/25/24 06:55 Last Infusion: 06/25/24 07:10 Dose: Infused Documented By: Admin: 06/25/24 06:41 Dose: 100 mls/hr Documented By: MARGARET Piperacillin Sod/Tazobactam Sod (Zosyn) 4.5 gm in 100 mls @ 200 mls/hr IV NOW STA; Protocol Stop: 06/25/24 09:44 Last Infusion: 06/25/24 10:27 Dose: Infused Documented By: Admin: 06/25/24 09:42 Dose: 200 mls/hr Documented By: SHI Ioversol (Optiray 320 100ml) 94 ml IV ONCE ONE Stop: 06/25/24 07:09 Last Admin: 06/25/24 07:11 Dose: 94 ml Documented By: CHRISTIANO Imaging Data Attestation: I personally reviewed and interpreted this imaging study as follows: My Impression: 1 view chest x-ray was obtained in the emergency department. My interpretation is volume overload noted, final report below. CT of the abdomen and pelvis was obtained. My interpretation is no free air, the right kidney does appear to be lower than anatomically expected, there is hydronephrosis with a ureteral calculus, final report below. Radiologist's Impression: Chest X-Ray 06/25/24 06:30 EXAM: XR chest 1V portable CLINICAL HISTORY: Chills. TECHNIQUE: An X-ray image of the chest is obtained in AP projection. COMPARISON: Comparison with the previous study dated 05/02/2024. FINDINGS: Pulmonary Parenchyma: Prominent both windy with perihilar and basal accentuated broncho vascular markings with possible cephalization suggesting lung congestion. Obliteration of both costophrenic angles suggests bilateral pleural effusion. Heart and Mediastinum: Heart size is enlarged. No mediastinal widening or masses. No hilar or mediastinal lymphadenopathy. Bony Thorax: The bony thorax appears intact without fractures or deformities. Soft Tissues: Soft tissues overlying the chest wall are unremarkable. IMPRESSION: 1. Prominent both windy with perihilar and basal accentuated broncho vascular markings with cephalization suggesting lung congestion. 2. Bilateral pleural effusion. 3. Cardiomegaly. 4. No gross interval changes in comparison with the previous study. Electronically signed by Muna Thompson 06-25-2024 07:44 AM Abdomen/Pelvis CT 06/25/24 06:51 EXAM: CT abd pelvis IV con only CLINICAL HISTORY: Flank pain and fever. TECHNIQUE: CT of the abdomen and pelvis was performed with contrast, with the following protocol: axial images with, and reconstructed coronal and sagittal images. One of the following dose reduction techniques was utilized for this exam: Automated exposure control, adjustment of the mA and/or kV according to patient size, and use of iterative reconstruction. COMPARISON: Comparison is made with 02/16/2019. FINDINGS: The scanned lower chest cuts show cardiomegaly with dilated both atria, mild bilateral pleural effusion more on the right side with associated pleural pulmonary reaction and atelectatic bands. Abdomen: Liver: Mild hepatomegaly with liver cirrhosis No focal lesions, cysts, or masses were identified. Hepatic vasculature and biliary ducts are unremarkable. Gallbladder and Biliary System: Prominent common bile duct measuring 11 mm likely status postcholecystectomy Surgically removed gallbladder with metallic clips with the operative bed suspected cystic duct or gallbladder stump with multiple hyperdense foci suggesting small stones correlation with operative data is advised Pancreas: Pancreatic head, body, and tail are visualized and appear normal in size and density. No pancreatic masses or calcifications were noted. The pancreatic duct is not dilated. Spleen: Normal in size, shape, and density. No splenic lesions or masses were identified. Appendix: The appendix is normal in size without liz appendiceal fat stranding and without an appendicolith. No evidence of appendiceal abscess or perforation. Kidneys and Adrenal Glands: Both kidneys are normal in size, shape, and position. Cortical thickness is within normal limits. Mild right renal pressure changes down to a small obstructing stone measuring 2 mm noted at the mid-ureteric junction displaying 237 Hounsfield units Left extrarenal pelvis. Bilateral renal simple cyst the largest on the right side measuring 13 mm. Nonspecific bilateral perinephric fat stranding more on the right side Adrenal glands are unremarkable with no evidence of masses or hyperplasia. Pelvis: Urinary Bladder: Normal in contour and wall thickness. No intraluminal lesions were identified. Uterus: is surgically removed. Ovaries: Not well visualized but no gross abnormalities were noted. Vagina: Normal in contour and wall thickness. Cervix: No evidence of mass or abnormal thickening. Peritoneal and Retroperitoneal Structures: No free fluid or abnormal fluid collections were identified within the abdomen or pelvis. No lymphadenopathy was noted. Bowel: Multiple colonic diverticuli with engorged mesenteric vessels are seen around the sigmoid colon with subtle liz sigmoid fat stranding yet no definite wall edema no collections. Findings may raise the possibility of early mild acute diverticulitis clinical correlation is advised The visualized bowel loops are normal in caliber and appearance. No evidence of bowel obstruction or wall thickening. Bones and Soft Tissues: Pelvic bones and soft tissues are unremarkable. No fractures or abnormal masses were identified. Spine degenerative changes with osteophytes with lumbar levoscoliosis Right parietal anterior abdominal wall hernia noted at the right pelvic region with defect measuring 3 cm herniating small bowel loops with no signs of obstruction and minimal free fluid IMPRESSION: 1. Mild right renal pressure changes down to small obstructing stone measuring 2 mm noted at the mid ureteric junction displaying 237 Hounsfield units. New. 2. Mild bilateral pleural effusion. New. 3. Surgically removed gallbladder with suspected residual cystic duct or gallbladder stump with small stones , correlation with operative data is advised. Stable. 4. Multiple colonic diverticuli with possible early mild acute diverticulitis, yet no collections. clinical correlation is advised. markedly decreased signs of diverticulitis since prior study. 5. Right parietal anterior abdominal wall hernia noted at the right pelvic region with no complications. Stable. 6. Mild hepatomegaly with liver cirrhosis. progressed. Electronically signed by Muna Thompson 06-25-2024 08:26 AM Discharge Plan Visit Data Chief Complaint: Abdominal Pain Stated Complaint: ABDOMINAL PAIN, LOW BACK PAIN ED Provider: Julio César Carter Discharge Problem: Hydronephrosis, Urinary tract infection Patient Disposition: Admitted As Inpatient Discharge Instructions Interventions: ED Discharge Assessment Last Done: 06/25/24 11:25 Discharge Problem: Hydronephrosis Qualifiers: Hydronephrosis type: with ureteral calculous obstruction Qualified Code(s): N 13.2 - Hydronephrosis with renal and ureteral calculous obstruction
[2024-06-25] MEDS: OPTIRAY 320 100ml IV ONE (07:11)
--- NOTE | 2024-06-25 07:45 | XRay Report ---
EXAM: XR chest 1V portable CLINICAL HISTORY: Chills. TECHNIQUE: An X-ray image of the chest is obtained in AP projection. COMPARISON: Comparison with the previous study dated 05/02/2024. FINDINGS: Pulmonary Parenchyma: Prominent both windy with perihilar and basal accentuated broncho vascular markings with possible cephalization suggesting lung congestion. Obliteration of both costophrenic angles suggests bilateral pleural effusion. Heart and Mediastinum: Heart size is enlarged. No mediastinal widening or masses. No hilar or mediastinal lymphadenopathy. Bony Thorax: The bony thorax appears intact without fractures or deformities. Soft Tissues: Soft tissues overlying the chest wall are unremarkable. IMPRESSION: 1. Prominent both windy with perihilar and basal accentuated broncho vascular markings with cephalization suggesting lung congestion. 2. Bilateral pleural effusion. 3. Cardiomegaly. 4. No gross interval changes in comparison with the previous study. Electronically signed by Muna Thompson 06-25-2024 07:44 AM
--- NOTE | 2024-06-25 08:26 | CT Scan Report ---
EXAM: CT abd pelvis IV con only CLINICAL HISTORY: Flank pain and fever. TECHNIQUE: CT of the abdomen and pelvis was performed with contrast, with the following protocol: axial images with, and reconstructed coronal and sagittal images. One of the following dose reduction techniques was utilized for this exam: Automated exposure control, adjustment of the mA and/or kV according to patient size, and use of iterative reconstruction. COMPARISON: Comparison is made with 02/16/2019. FINDINGS: The scanned lower chest cuts show cardiomegaly with dilated both atria, mild bilateral pleural effusion more on the right side with associated pleural pulmonary reaction and atelectatic bands. Abdomen: Liver: Mild hepatomegaly with liver cirrhosis No focal lesions, cysts, or masses were identified. Hepatic vasculature and biliary ducts are unremarkable. Gallbladder and Biliary System: Prominent common bile duct measuring 11 mm likely status postcholecystectomy Surgically removed gallbladder with metallic clips with the operative bed suspected cystic duct or gallbladder stump with multiple hyperdense foci suggesting small stones correlation with operative data is advised Pancreas: Pancreatic head, body, and tail are visualized and appear normal in size and density. No pancreatic masses or calcifications were noted. The pancreatic duct is not dilated. Spleen: Normal in size, shape, and density. No splenic lesions or masses were identified. Appendix: The appendix is normal in size without liz appendiceal fat stranding and without an appendicolith. No evidence of appendiceal abscess or perforation. Kidneys and Adrenal Glands: Both kidneys are normal in size, shape, and position. Cortical thickness is within normal limits. Mild right renal pressure changes down to a small obstructing stone measuring 2 mm noted at the mid-ureteric junction displaying 237 Hounsfield units Left extrarenal pelvis. Bilateral renal simple cyst the largest on the right side measuring 13 mm. Nonspecific bilateral perinephric fat stranding more on the right side Adrenal glands are unremarkable with no evidence of masses or hyperplasia. Pelvis: Urinary Bladder: Normal in contour and wall thickness. No intraluminal lesions were identified. Uterus: is surgically removed. Ovaries: Not well visualized but no gross abnormalities were noted. Vagina: Normal in contour and wall thickness. Cervix: No evidence of mass or abnormal thickening. Peritoneal and Retroperitoneal Structures: No free fluid or abnormal fluid collections were identified within the abdomen or pelvis. No lymphadenopathy was noted. Bowel: Multiple colonic diverticuli with engorged mesenteric vessels are seen around the sigmoid colon with subtle liz sigmoid fat stranding yet no definite wall edema no collections. Findings may raise the possibility of early mild acute diverticulitis clinical correlation is advised The visualized bowel loops are normal in caliber and appearance. No evidence of bowel obstruction or wall thickening. Bones and Soft Tissues: Pelvic bones and soft tissues are unremarkable. No fractures or abnormal masses were identified. Spine degenerative changes with osteophytes with lumbar levoscoliosis Right parietal anterior abdominal wall hernia noted at the right pelvic region with defect measuring 3 cm herniating small bowel loops with no signs of obstruction and minimal free fluid IMPRESSION: 1. Mild right renal pressure changes down to small obstructing stone measuring 2 mm noted at the mid ureteric junction displaying 237 Hounsfield units. New. 2. Mild bilateral pleural effusion. New. 3. Surgically removed gallbladder with suspected residual cystic duct or gallbladder stump with small stones , correlation with operative data is advised. Stable. 4. Multiple colonic diverticuli with possible early mild acute diverticulitis, yet no collections. clinical correlation is advised. markedly decreased signs of diverticulitis since prior study. 5. Right parietal anterior abdominal wall hernia noted at the right pelvic region with no complications. Stable. 6. Mild hepatomegaly with liver cirrhosis. progressed. Electronically signed by Muna Thompson 06-25-2024 08:26 AM
[2024-06-25] MEDS ORDERED: ALUMINUM/MAGNESIUM SUSP 30 ML UDC PO PRN (08:46)
[2024-06-25] MEDS ORDERED: MAGNESIUM HYDROXIDE SUSP 30 ML UDC PO PRN (08:46)
--- NOTE | 2024-06-25 08:52 | History & Physical Report ---
Date of Service June 25, 2024 Assessment & Plan (1) Complicated UTI (urinary tract infection): Plan Abdominal pain Acute UTI Right-sided ureteric stone Patient presented to the hospital with lower abdominal pain and chills. History of recurrent UTIs in the past. Urine culture growing E. coli, Enterococcus faecalis, Citrobacter Leukocytosis present Urinalysis suggestive of infection CT abdomen pelvis shows mild right renal pressure changes down to a small obstructing stone measuring 2 mm at the mid ureter junction obtain blood culture Will start on Zosyn; follow-up on urine and blood culture Consult urology given the obstructing nature of the stone and in setting of UTI. Patient has recurrent UTI along with bacteremia in February 2024 Acute on chronic CHFpEF Acute hypoxic respiratory failure Echocardiogram done in April 2024 shows grade 3 diastolic dysfunction. Normal systolic function Patient is on salt tablets which contributes to volume overload; will hold it. Start on IV Lasix 20 mg twice daily SIADHhold salt tablets, monitor BMP Paroxysmal A-fibcontinue on amiodarone and metoprolol. Not on anticoagulation given history of prior falls and GI bleeding Hypothyroidismcontinue on levothyroxine Hypertensioncontinue on home meds DNR/DNI DVT prophylaxis heparin Please note the above document was generated using voice recognition software. It may contain grammatical, syntax or spelling errors. Any formal questions or concerns about the content, text or information contained within the body of this dictation should be directly addressed to the provider for clarification History of Present Illness Chief Complaint: Lower abdomen pain X 1 day Primary Care Provider: Kodi Lizarraga MD History obtained from chart review and interview with the patient Patient confinement in the hospital from May 02 to May 12 for CHF, PEYTON on CKD and possible UTI. She was then discharged to [facility]. She came back home after staying in [facility] for 1 week. Patient has [employer] at home who comes and checks on her. 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 Patient presents to the hospital for evaluation of abdominal discomfort in the lower abdomen that radiates to the back. Denies any nausea/vomiting; reports some chills; no fever. She reports getting similar symptoms in the past when she gets UTI. Multiple admission in the past for similar issue On presentation to the ED, she was afebrile, normotensive and hypoxic. She was placed on 2 L of oxygen by nasal cannula. Lab work reveals leukocytosis. Creatinine at baseline. Urinalysis suggestive of infection. Chest x-ray reviewed; cardiomegaly with venous congestion present along with small bilateral pleural effusion. CT abdomen pelvis was done; shows mild right renal pressure changes down to a small obstructing stone measuring 2 mm at the mid ureter junction Patient was referred for admission Allergies Allergy/AdvReac Type Severity Reaction Status Date / Time Quinolones Allergy Intermediate HIVES Verified 03/10/24 10:07 dabigatran etexilate Allergy Unknown ON Verified 03/10/24 10:07 [facility] MED LIST metronidazole AdvReac Intermediate GI SYMPTOMS Verified 03/10/24 10:07 sulfamethoxazole AdvReac Mild GI SYMPTOMS Verified 03/10/24 10:07 trimethoprim AdvReac Mild GI SYMPTOMS Verified 03/10/24 10:07 Home Medications Medication Instructions Recorded Confirmed Type aspirin 325 mg tablet 325 mg PO QAM #100 tabs 01/28/19 05/02/24 History levothyroxine 75 mcg capsule 75 mcg PO DAILYBB 03/14/19 05/02/24 History amlodipine 10 mg tablet 10 mg PO QDD #90 tabs 03/21/20 05/02/24 Rx diclofenac sodium 1 % topical gel 2 g topical QID PRN Pain 05/27/21 05/02/24 History buspirone 5 mg tablet 5 mg PO BID PRN Anxiety 07/18/22 05/02/24 History cyanocobalamin (vitamin B-12) 1,000 mcg PO Q OTHER DAY 07/18/22 05/02/24 History 1,000 mcg tablet multivitamin with minerals 1 tab PO DAILY 07/18/22 05/02/24 History (Multiple Vitamin-Minerals tablet) sodium chloride 1,000 mg soluble 1,000 mg PO BID #180 tabs 07/07/23 05/02/24 Rx tablet calcium 600 mg (as 1 tab PO DAILY 11/27/23 05/02/24 History carbonate)-vitamin D3 10 mcg (400 unit) tablet (Calcium 600 + D(3)) magnesium oxide 500 mg PO DAILY 11/27/23 05/02/24 History peg 400-propylene glycol 0.4 %-0.3 1 drp ophthalmic (eye) QID 11/27/23 05/02/24 History % eye drops (Systane Ultra) potassium gluconate 600 mg (99 mg) 600 mg PO DAILY 11/27/23 05/02/24 History tablet vit C 250 mg-vit E 90 mg-zinc 40 2 tab PO DAILY 11/27/23 05/02/24 History mg-copper 1 [id number] capsule (PreserVision AREDS-2) L.acidop,casei,lactis,rham-B.lact,nicole 2 cap PO DAILY #30 caps 02/21/24 05/02/24 Rx 625 mg (10 billion cell) capsule (Advanced Probiotic) metoprolol succinate 50 mg 50 mg PO BID #180 tabs 04/11/24 05/02/24 Rx tablet,extended release 24 hr amiodarone 200 mg tablet 200 mg PO QDD #90 tabs 05/11/24 Rx furosemide 40 mg tablet 40 mg PO QAM #90 tabs 06/02/24 Rx Past Med/Surg History Problem List Generalized weakness (Acute) Macular degeneration Cat scratch High serum calcium (Acute) Acute hyponatremia (Acute) UTI (urinary tract infection) (Acute) Complicated UTI (urinary tract infection) Chronic kidney disease, stage 3a CKD (chronic kidney disease), stage III Paroxysmal atrial fibrillation Hypothyroidism Hypertension (HFpEF) heart failure with preserved ejection fraction Aortic insufficiency Mitral regurgitation Bilateral pleural effusion (Acute) On amiodarone therapy Anemia (Acute) Bilateral pneumonia Abrasion of right elbow (Acute) Contusion of right hip (Acute) Elevated blood pressure, situational (Acute) Infection of wound hematoma Medical History Pulmonary edema Elevated brain natriuretic peptide (BNP) level Acute hypoxic respiratory failure Acute dyspnea Acute exacerbation of CHF (congestive heart failure) Hyponatremia with decreased serum osmolality Shortness of breath Hypoxic Acute respiratory failure with hypoxia SOB (shortness of breath) Mitral regurgitation Chronic heart failure with preserved ejection fraction Atypical chest pain GERD (gastroesophageal reflux disease) Pneumonia Chest pain Chest pain Diverticulitis Afib Surgical History History of umbilical hernia repair incarcerated - unknown age Hx of hernia repair right inguinal 2013 Hx of cholecystectomy Hx of hysterectomy Family History Mother Stroke Social History Smoking Status: Never smoker Second Hand Exposure: No; Do You Dip or Chew Tobacco: No; Hx Alcohol Use: No Hx Substance Use: No Preferred Language: American Communication Ability: Effective Curber Required: No Beliefs That Will Affect Care: None marital status: Current Living Situation: Alone Current Living Situation Comment: Has an aide who comes over current occupational status: retired How many Children do You have: 3 Feels Safe at Home: Yes Assistive Devices: Walker and Wheelchair Review of Systems Review of Systems: All systems reviewed & are unremarkable except as noted in Subjective Physical Exam Physical Exam: Constitutional: Awake, alert oriented x 3. Respiratory: Bilateral basal crackles present. Cardiovascular: RRR, no murmur, no edema Vessels: no JVD or carotid bruit Chest: normal inspection of chest Abdomen: normal bowel sounds, soft, nontender, no hepatosplenomegaly Musculoskeletal: no cyanosis or clubbing, extremities motor strength 5/5. 1 + pitting edema Skin: no rashes, warm and dry normal turgor Neurologic: PERRL, EOMI, accommodation nl, no face palsy, no dysarthria CN's II- XI intact bilaterally and moves all extremities Psychiatric: A+Ox3, euthymic affect Results & Data Results & Data Vital Signs (Past 12 Hours) Vital Signs Temp Pulse Resp BP Pulse Ox O2 Del Method O2 Flow Rate 06/25/24 07:18 66 23 97 06/25/24 07:14 126/79 06/25/24 06:30 68 23 97 Nasal Cannula 2 06/25/24 06:00 97 Nasal Cannula 2 06/25/24 05:45 76 06/25/24 05:40 37.1 C 71 18 88 L Room Air 06/25/24 05:39 72 20 148/80 H 98 Nasal Cannula 2 Code Status & VTE Plan VTE Prophylaxis Plan VTE Prophylaxis will be ordered: No
[2024-06-25] MEDS: FUROSEMIDE INJ 20 MG/2 ML VIAL IV SCH (09:24)
[2024-06-25] MEDS: 4.5GM X1 IV STA (09:42)
[2024-06-25] MEDS ORDERED: DICLOFENAC SOD 1% GEL 100 GM TUBE EXT PRN (11:25)
[2024-06-25] MEDS ORDERED: busPIRone 5 MG TAB PO PRN (11:25)
[2024-06-25] MEDS ORDERED: NON-FORMULARY MEDICATION (Vit C,E-Zn-Coppr-Lutein-Zeaxan [Preservision Areds-2] 250-90-40- PO SCH (11:25)
--- NOTE | 2024-06-25 12:16 | Urology Consultation ---
Date of Consultation June 25, 2024 Assessment & Plan (1) UTI (urinary tract infection): (2) Right ureteral stone: Plan 84-year-old female with acute urinary tract infection in the setting of likely obstructing right ureteral stone. Given her systemic symptoms, I am concerned for possible sepsis. In this circumstance I would recommend cystoscopy, right retrograde pyelogram and right ureteral stent placement. We discussed risks and benefits of surgery. We specifically discussed risks of bleeding, infection, injury to urinary tract, inability to place stent, need for additional procedures. She expressed understanding and would like to proceed with surgery. History of Present Illness Reason for Consultation: UTI, ureteral stone Attending Physician: Elmer Gifford MD History of Present Illness This is an 84-year-old female who presented to the emergent department on 06/25/2024 reporting abdominal/back pain, subjective fevers and shaking chills. She has not been having any nausea or vomiting. She has a history of recurrent urinary tract infections. Workup in the emergency department demonstrated mild leukocytosis (WBC 13.36). Creatinine was normal at 1.05. Glucose was slightly elevated 113. Urinalysis demonstrated 4+ bacteria, positive nitrites, 2+ leukocyte esterase. A CT scan of the abdomen and pelvis was performed. I independently reviewed these images from 06/25/2024. Her left kidney is in normal position. There is thickening of the renal pelvis but no significant hydronephrosis. No ureteral stones were appreciated on the left. Her right kidney is slightly more anterior than normal. There is a prominent extrarenal pelvis which is somewhat dilated, extending down to a likely 2 mm stone in the proximal ureter. There may be a crossing vessel of this area as well. Her bladder appears grossly normal. In the emergency department she reports ongoing chills and shakes. She has no history of nephrolithiasis and has never had any surgeries on the urinary tract in the past. She is bothered by recurrent urinary tract infections and would like to do something about them. Allergies Allergy/AdvReac Type Severity Reaction Status Date / Time Quinolones Allergy Intermediate HIVES Verified 03/10/24 10:07 dabigatran etexilate Allergy Unknown ON Verified 03/10/24 10:07 [facility] MED LIST metronidazole AdvReac Intermediate GI SYMPTOMS Verified 03/10/24 10:07 sulfamethoxazole AdvReac Mild GI SYMPTOMS Verified 03/10/24 10:07 trimethoprim AdvReac Mild GI SYMPTOMS Verified 03/10/24 10:07 Home Medications Medication Instructions Recorded Confirmed Type aspirin 325 mg tablet 325 mg PO QAM #100 tabs 01/28/19 06/25/24 History levothyroxine 75 mcg capsule 75 mcg PO DAILYBB 03/14/19 06/25/24 History amlodipine 10 mg tablet 10 mg PO QDD #90 tabs 03/21/20 06/25/24 Rx diclofenac sodium 1 % topical gel 2 g topical QID PRN Pain 05/27/21 06/25/24 History buspirone 5 mg tablet 5 mg PO BID PRN Anxiety 07/18/22 06/25/24 History cyanocobalamin (vitamin B-12) 1,000 mcg PO Q OTHER DAY 07/18/22 06/25/24 History 1,000 mcg tablet multivitamin with minerals 1 tab PO DAILY 07/18/22 06/25/24 History (Multiple Vitamin-Minerals tablet) sodium chloride 1,000 mg soluble 1,000 mg PO BID #180 tabs 07/07/23 06/25/24 Rx tablet calcium 600 mg (as 1 tab PO DAILY 11/27/23 06/25/24 History carbonate)-vitamin D3 10 mcg (400 unit) tablet (Calcium 600 + D(3)) magnesium oxide 500 mg PO DAILY 11/27/23 06/25/24 History peg 400-propylene glycol 0.4 %-0.3 1 drp ophthalmic (eye) QID 11/27/23 06/25/24 History % eye drops (Systane Ultra) potassium gluconate 600 mg (99 mg) 600 mg PO DAILY 11/27/23 06/25/24 History tablet vit C 250 mg-vit E 90 mg-zinc 40 2 tab PO DAILY 11/27/23 06/25/24 History mg-copper 1 [id number] capsule (PreserVision AREDS-2) L.acidop,casei,lactis,rham-B.lact,nicole 2 cap PO DAILY #30 caps 02/21/24 06/25/24 Rx 625 mg (10 billion cell) capsule (Advanced Probiotic) metoprolol succinate 50 mg 50 mg PO BID #180 tabs 04/11/24 06/25/24 Rx tablet,extended release 24 hr amiodarone 200 mg tablet 200 mg PO QDD #90 tabs 05/11/24 06/25/24 Rx furosemide 40 mg tablet 40 mg PO QAM #90 tabs 06/02/24 06/25/24 Rx Patient History Medical History Pulmonary edema Elevated brain natriuretic peptide (BNP) level Acute hypoxic respiratory failure Acute dyspnea Acute exacerbation of CHF (congestive heart failure) Hyponatremia with decreased serum osmolality Shortness of breath Hypoxic Acute respiratory failure with hypoxia SOB (shortness of breath) Mitral regurgitation Chronic heart failure with preserved ejection fraction Atypical chest pain GERD (gastroesophageal reflux disease) Pneumonia Chest pain Chest pain Diverticulitis Afib Surgical History History of umbilical hernia repair incarcerated - unknown age Hx of hernia repair right inguinal 2013 Hx of cholecystectomy Hx of hysterectomy Family History Mother Stroke Social History Smoking Status: Never smoker Second Hand Exposure: No; Do You Dip or Chew Tobacco: No; Hx Alcohol Use: No Hx Substance Use: No Preferred Language: Armenian Communication Ability: Effective Broach Trouble Shooter Required: No Beliefs That Will Affect Care: None marital status: Current Living Situation: Alone Current Living Situation Comment: Has an aide who comes over current occupational status: retired How many Children do You have: 3 Feels Safe at Home: Yes Assistive Devices: Walker and Wheelchair Review of Systems Review of Systems: 12 point review of systems negative exce pt for otherwise indicated. Physical Exam Physical Exam: Resting in stretcher under several blankets, NAD Constitutional: well developed and well nourished; no acute distress Eyes: + anicteric sclerae; pupils not irregula r Respiratory: normal respiratory effort; no respiratory distress, does not use accessory muscles and no cough Cardiovascular: well perfused Gastrointestinal (Abdomen): Inspection/Auscultation: abdomen normal to inspection; abdomen not distended Musculoskeletal: Extremities: extremities normal to inspection Skin: normal turgor; no rashes and no lesions Neurologic: moves all extremities and awake Psychiatric: Orientation: alert and oriented x 3 Results & Data Vital Signs (Past 12 Hours) Vital Signs Temp Pulse Resp BP Pulse Ox O2 Del Method O2 Flow Rate 06/25/24 12:09 68 21 152/61 H 91 06/25/24 11:57 71 23 92 06/25/24 11:00 62 19 142/66 H 94 06/25/24 10:30 136/68 06/25/24 10:27 58 L 19 94 06/25/24 10:16 61 06/25/24 10:00 67 20 06/25/24 10:00 124/84 06/25/24 09:45 61 22 92 06/25/24 09:15 63 23 93 06/25/24 08:30 60 23 96 06/25/24 08:30 131/54 L 06/25/24 08:00 63 23 06/25/24 08:00 136/55 L 06/25/24 07:36 60 23 96 06/25/24 07:18 66 23 97 06/25/24 07:14 126/79 06/25/24 06:30 68 23 97 Nasal Cannula 2 06/25/24 06:00 97 Nasal Cannula 2 06/25/24 05:45 76 06/25/24 05:40 37.1 C 71 18 88 L Room Air 06/25/24 05:39 72 20 148/80 H 98 Nasal Cannula 2 PG Care Time/CCT Total # of Minutes Spent Total Time Spent with Patient: Total time spent is greater than 50% in coordination of care (as documented) at patient's floor/unit and/or counseling patient: Coding Level of Care Code 19671 OP VST NEW MOD 45 MIN Diagnoses UTI (urinary tract infection) N30.00 Hematuria presence: without hematuria Urinary tract infection type: acute cystitis Right ureteral stone N20.1 (1) UTI (urinary tract infection) Hematuria presence: without hematuria Urinary tract infection type: acute cystitis Qualified Code(s): N30.00 - Acute cystitis without hematuria
[2024-06-25] MEDS: ADVANCED PROBIOTIC 625 MG CAPSULE PO SCH (13:45)
[2024-06-25] MEDS: CEROVITE ADV FORMULA TAB PO SCH (13:45)
[2024-06-25] MEDS: ASPIRIN 325 MG ECTAB PO SCH (13:45)
[2024-06-25] MEDS: METOPROLOL SUCC 50MG EXT REL TAB PO SCH (13:45)
[2024-06-25] MEDS: PIPERACILLIN/TAZOBACTAM 4.5 GM/100 ML BAG IV SCH (13:46)
[2024-06-25] MEDS: ARTIFICIAL TEARS OP SCH (13:49)
--- NOTE | 2024-06-25 14:21 | Anesthesiology Consultation ---
Date of Service June 25, 2024 Assessment & Plan Chart Review Chart Review: Acceptable Risk for Surgery and Patient NOT seen in Pre Admission Testing Consults Requested none ASA [id number] Proposed Anesthesia Anesthesia Type: MAC History Surgery Operation Date: 06/25/24 15:00 Proposed Procedures p Cystoscopy with Right Retrograde Pyelogram and Right Ureteral Stent Insertion(Right) - Cordell Hutchinson MD Height/Weight Height: 5 ft 4 in Weight: 56 kg Allergies Allergy/AdvReac Type Severity Reaction Status Date / Time Quinolones Allergy Intermediate HIVES Verified 03/10/24 10:07 dabigatran etexilate Allergy Unknown ON Verified 03/10/24 10:07 [facility] metronidazole AdvReac Intermediate GI SYMPTOMS Verified 03/10/24 10:07 sulfamethoxazole AdvReac Mild GI SYMPTOMS Verified 03/10/24 10:07 trimethoprim AdvReac Mild GI SYMPTOMS Verified 03/10/24 10:07 Medications Home Medications Medication Instructions Recorded Confirmed Last Taken aspirin 325 mg tablet 325 mg PO QAM #100 tabs 01/28/19 06/25/24 01/28/24 levothyroxine 75 mcg capsule 75 mcg PO DAILYBB 03/14/19 06/25/24 01/28/24 amlodipine 10 mg tablet 10 mg PO QDD #90 tabs 03/21/20 06/25/24 01/27/24 diclofenac sodium 1 % topical gel 2 g topical QID PRN Pain 05/27/21 06/25/24 05/27/21 buspirone 5 mg tablet 5 mg PO BID PRN Anxiety 07/18/22 06/25/24 Unknown cyanocobalamin (vitamin B-12) 1,000 mcg PO Q OTHER DAY 07/18/22 06/25/24 11/27/23 1,000 mcg tablet multivitamin with minerals 1 tab PO DAILY 07/18/22 06/25/24 01/28/24 (Multiple Vitamin-Minerals tablet) sodium chloride 1,000 mg soluble 1,000 mg PO BID #180 tabs 07/07/23 06/25/24 01/28/24 tablet calcium 600 mg (as 1 tab PO DAILY 11/27/23 06/25/24 01/28/24 carbonate)-vitamin D3 10 mcg (400 unit) tablet (Calcium 600 + D(3)) magnesium oxide 500 mg PO DAILY 11/27/23 06/25/2424 peg 400-propylene glycol 0.4 %-0.3 1 drp ophthalmic (eye) QID 11/27/23 06/25/24 01/28/24 % eye drops (Systane Ultra) potassium gluconate 600 mg (99 mg) 600 mg PO DAILY 11/27/23 06/25/24 01/28/24 tablet vit C 250 mg-vit E 90 mg-zinc 40 2 tab PO DAILY 11/27/23 06/25/24 01/28/24 mg-copper 1 [id number] capsule (PreserVision AREDS-2) L.acidop,casei,lactis,rham-B.lact,nicole 2 cap PO DAILY #30 caps 02/21/24 06/25/24 Unknown 625 mg (10 billion cell) capsule (Advanced Probiotic) metoprolol succinate 50 mg 50 mg PO BID #180 tabs 04/11/24 06/25/24 Unknown tablet,extended release 24 hr amiodarone 200 mg tablet 200 mg PO QDD #90 tabs 05/11/24 06/25/24 Unknown furosemide 40 mg tablet 40 mg PO QAM #90 tabs 06/02/24 06/25/24 Unknown Active Medications Generic Name Dose Route Start Last Admin Trade Name Freq PRN Reason Stop Dose Admin Artificial Tears 1 drops 06/25/24 13:00 06/25/24 13:49 Artificial Tears OP 07/25/24 12:59 1 drops QID LINETTE Administration Aspirin 325 mg 06/25/24 11:25 06/25/24 13:45 Aspirin 325 Mg Ectab PO 07/25/24 11:24 325 mg QAM LNIETTE Administration Furosemide 20 mg 06/25/24 08:50 06/25/24 13:49 Furosemide Inj 20 Mg/2 Ml Vial IV 07/25/24 08:49 20 mg [id number] LINETTE Administration Piperacillin Sod/Tazobactam Sod 4.5 gm in 100 mls @ 25 mls/hr 06/25/24 14:00 06/25/24 13:46 Zosyn IV 07/05/24 13:59 25 mls/hr Q8H LINETTE Administration Protocol Lactobacillus Acidophilus 1,250 mg 06/25/24 11:25 06/25/24 13:45 Advanced Probiotic 625 Mg Capsule PO 07/25/24 11:24 1,250 mg DAILY LINETTE Administration Metoprolol Succinate 50 mg 06/25/24 11:25 06/25/24 13:45 Metoprolol Succ 50mg Ext Rel Tab PO 07/25/24 11:24 50 mg BID LINETTE Administration Multivitamins/Minerals 1 tab 06/25/24 11:25 06/25/24 13:45 Cerovite Adv Formula Tab PO 07/25/24 11:24 1 tab DAILY LINETTE Administration Past Medical History Medical History Pulmonary edema Elevated brain natriuretic peptide (BNP) level Acute hypoxic respiratory failure Acute dyspnea Acute exacerbation of CHF (congestive heart failure) Hyponatremia with decreased serum osmolality Shortness of breath Hypoxic Acute respiratory failure with hypoxia SOB (shortness of breath) Mitral regurgitation Chronic heart failure with preserved ejection fraction Atypical chest pain GERD (gastroesophageal reflux disease) Pneumonia Chest pain Chest pain Diverticulitis Afib liver cirrhosis hepatomegaly CHF 05/02/2024 Exercise / Class Metabolic Activity III < 4 Walking/Shop/Light housework Past Family History Family History Mother Stroke Past Surgical History Surgical History History of umbilical hernia repair incarcerated - unknown age Hx of hernia repair right inguinal 2013 Hx of cholecystectomy Hx of hysterectomy Past Anesthesia History No Hx of Anesthesia Complications and No Family Hx of Anesthesia Complications History of PONV No Hx of PONV and No Hx of Motion Sickness Social History Smoking Status: Never smoker Do You Dip or Chew Tobacco: No Hx Alcohol Use: No Hx Substance Use: No substance use type: does not use Physical Exam Vital Signs Last Vital Signs Temp 37.1 C 06/25/24 05:40 Pulse 68 06/25/24 12:09 Resp 21 06/25/24 12:09 BP 152/61 H 06/25/24 12:09 Pulse Ox 91 06/25/24 12:09 O2 Del Method Nasal Cannula 06/25/24 06:30 O2 Flow Rate 2 06/25/24 06:30 Testing Laboratory Results 06/25/24 05:45 06/25/24 05:45 Urine Color Yellow 06/25/24 05:45 Urine Appearance Turbid (Clear) A 06/25/24 05:45 Urine pH 8.0 (4.5-7.5) H 06/25/24 05:45 Ur Specific [place]cher 1.017 (1.000-1.030) 06/25/24 05:45 Urine Protein 1+ (Negative) H 06/25/24 05:45 Urine Glucose (UA) Negative (Negative) 06/25/24 05:45 Urine Ketones Negative (Negative) 06/25/24 05:45 Urine Nitrite Positive (Negative) A 06/25/24 05:45 Ur Leukocyte Esterase 2+ (Negative) H 06/25/24 05:45 Urine WBC (Auto) >50 /hpf (0-5) H 06/25/24 05:45 Urine RBC (Auto) 6-10 /hpf (0-2) H 06/25/24 05:45 U Hyaline Cast (Auto) 0-2 /lpf (0-2) 06/25/24 05:45 U Epithel Cells (Auto) 0-2 /hpf (0-2) 06/25/24 05:45 Urine Bacteria (Auto) 4+ (None Seen) H 06/25/24 05:45 Electrocardiogram Date: 06/25/24 Findings: + NSR @ (@ 69 w/ 1st degree AVB;LAD;NS IVCB;? anterolat. infarct,age ?) and + LVH Chest X-Ray Date: 06/25/24 Findings: + cardiomegaly, + pulmonary vascular congestion and + pleural effusion (B/L) Echocardiogram Date: 05/02/24 EF: 55% LV Function: normal RWMA: + none Other Findings: + atrial enlargement (LA mildly dilated) and + diastolic dysfunction (Grade 3) Valvular Disease: + AI (moderate) and + MR (moderate) mild TR RV sys pressure 40-50 TORR
[2024-06-25] MEDS ORDERED: ATROPINE SULFATE 0.1 MG/ML 10ML SYR IV PRN (15:45)
[2024-06-25] MEDS ORDERED: ePHEDrine sulfate 50 MG/ML AMP IV PRN (15:45)
[2024-06-25] MEDS ORDERED: PROPOFOL IV EMULSION 10 MG/ML 20 ML VIAL IV ONE ×2 (15:54→16:01)
[2024-06-25] MEDS ORDERED: LIDOCAINE 2% 2 ML VIAL/AMP(20MG/ML) INFIL ONE ×2 (15:54→16:01)
[2024-06-25] MEDS: DIATRIZOATE MEGLUMINE 30% 100ML VIAL INSTIL ONE (16:04)
--- NOTE | 2024-06-25 16:10 | Operative Report ---
PG Post Operative Report Pre & Post Diagnosis Operation Date: 06/25/24 15:00 Pre-Op Diagnosis: Urinary Tract Infection, Right ureteral stone Post-Op Diagnosis: Urinary Tract Infection, Right ureteral stone I identified the patient and participated in the time-out.: Yes Procedure Operation Date: 06/25/24 15:00 Actual Procedures Cystoscopy, right retrograde pyelogram with radiographic interpretation, right ureteral stent placement Surgeon Cordell Hutchinson MD Junior Analyst None Estimated Blood Loss 0 Findings See Below Right kidney was somewhat low and medial Successful right ureteral stent placement Specimens None Drains 6 Burmese by 22 cm double-J ureteral stent in the right ureter Anesthesia Type MAC Complications none Disposition Accompanied Patient To Recovery: Yes Disposition: Recovery Room Indications This is an 84-year-old female who presented to the emergency department with subjective chills, found to have a suspicious urinalysis as well as possible right ureteral stone. She is brought to the OR for right ureteral stent placement. Description of Procedure The patient was identified in the holding area and informed consent was confirmed. She was marked on the right side, then was taken to the operating room where anesthesia was initiated. She was placed in the dorsal lithotomy position with all pressure points appropriately padded. She was prepped and draped in the usual sterile fashion and a preoperative timeout was performed. A well-lubricated cystoscope was inserted per urethra and panendoscopy was performed. The urethra was normal in appearance. The bladder was of normal size with ureteral orifices in orthotopic position. The right ureteral orifice was identified and cannulated with a 5 Burmese open- ended catheter. A retrograde pyelogram was performed demonstrating the distal ureter was normal but quickly curved toward the midline. As this advanced more proximally, there was a narrowed area and then immediate dilation of the renal pelvis which was lower and more medial than would typically be expected. A 0.038" ZIPwire was advanced to the level of the kidney under fluoroscopic guidance. I advanced the 5 Burmese open-ended catheter over the wire to the renal pelvis. A sample of urine was aspirated and was found to be fairly clear. I instilled Cystografin to a hole in the contour of the renal pelvis. The wire was then reintroduced. Over the wire, a 6 Burmese x 22 centimeter double-J ureteral stent was advanced. When the wire was removed, the proximal curl was visualized in the renal pelvis with x-ray, and the distal curl visualized in the bladder with the cystoscope. At this point the bladder was drained and all instrumentation was removed. The patient was then awakened from anesthesia and was brought to the PACU in stable condition. I attest to the content of the Intraoperative Record and any orders documented therein. Any exceptions are noted below.
--- NOTE | 2024-06-25 16:37 | Anesthesiology Progress Note ---
Date of Service June 25, 2024 Anesthesia Post Procedure Vital Signs Vital Signs: Temp Pulse Pulse Resp BP BP Pulse Ox 06/25/24 16:20 58 L 15 106/44 L 98 06/25/24 16:12 37.1 C 57 L 17 100/44 L 98 06/25/24 12:09 68 21 152/61 H 91 06/25/24 11:57 71 23 92 06/25/24 11:00 62 19 142/66 H 94 06/25/24 10:30 136/68 06/25/24 10:27 58 L 19 94 06/25/24 10:16 61 06/25/24 10:00 67 20 06/25/24 10:00 124/84 06/25/24 09:45 61 22 92 06/25/24 09:15 63 23 93 06/25/24 08:30 60 23 96 06/25/24 08:30 131/54 L 06/25/24 08:00 63 23 06/25/24 08:00 136/55 L 06/25/24 07:36 60 23 96 06/25/24 07:18 66 23 97 06/25/24 07:14 126/79 06/25/24 06:30 68 23 97 06/25/24 06:00 97 06/25/24 05:45 76 06/25/24 05:40 37.1 C 71 18 88 L 06/25/24 05:39 72 20 148/80 H 98 O2 Del Method O2 Flow Rate 06/25/24 16:20 Oxymask 3 06/25/24 16:12 Oxymask 6 06/25/24 12:09 06/25/24 11:57 06/25/24 11:00 06/25/24 10:30 06/25/24 10:27 06/25/24 10:16 06/25/24 10:00 06/25/24 10:00 06/25/24 09:45 06/25/24 09:15 06/25/24 08:30 06/25/24 08:30 06/25/24 08:00 06/25/24 08:00 06/25/24 07:36 06/25/24 07:18 06/25/24 07:14 06/25/24 06:30 Nasal Cannula 2 06/25/24 06:00 Nasal Cannula 2 06/25/24 05:45 06/25/24 05:40 Room Air 06/25/24 05:39 Nasal Cannula 2 Pain Intensity Bilateral Lower Abdomen: Pain Intensity: 9 Transfer of Care Handoff Completed per policy Notes Mental Status: alert / awake / arousable Patient Amnestic to Procedure: Yes Nausea / Vomiting: adequately controlled Pain: adequately controlled Airway Patency, RR, SpO2: stable & adequate BP & HR: stable & adequate Hydration State: stable & adequate Anesthetic Complications: no major complications apparent
[2024-06-25] MEDS: AMIODARONE 200 MG TAB PO SCH (18:08)
[2024-06-25] MEDS: ACETAMINOPHEN 325 MG TAB PO PRN (22:38)
[2024-06-26 06:15] LABS: Basophils # (auto) 0.05 K/uL (0.00-0.20); Basophils % (auto) 0.6 %; Eosinophils # (auto) 0.22 K/uL (0.00-0.50); Eosinophils % (auto) 2.7 %; Hematocrit (blood only) 28.8 % (37.0-47.0); Hemoglobin 9.4 g/dl (12.0-16.0); Immature Granulocytes # (auto) 0.04 K/uL (0.01-0.20); Immature Granulocytes % (auto) 0.5 %; Lymphocytes # (auto) 1.29 K/uL (1.20-3.40); Lymphocytes % (auto) 15.6 %; Mean Corpuscular Hemoglobin 30.8 pg (25.0-34.0); Mean Corpuscular Hgb Conc 32.6 g/dL (32.0-36.0); Mean Corpuscular Volume 94.4 fL (80.0-100.0); Mean Platelet Volume 10.9 fL (9.4-12.4); Monocytes # (auto) 1.44 K/uL (0.11-0.59); Monocytes % (auto) 17.5 %; Neutrophils # (auto) 5.21 K/uL (1.40-6.50); Neutrophils % (auto) 63.1 %; Platelet Count 161 K/uL (130-400); RDW Coefficient of Variation 15.5 % (11.5-14.5); RDW Standard Deviation 54.2 fL (36.4-46.3); Red Blood Count 3.05 M/uL (4.20-5.40); White Blood Count 8.25 K/ul (4.8-10.8)
[2024-06-26] MEDS: LEVOTHYROXINE SODIUM 75 MCG TABLET PO SCH (06:28)
[2024-06-26 06:39] LABS: BUN Creatinine Ratio 16.4 (10-20); Calcium 9.1 mg/dl (8.6-10.3); Creatinine Clr Calc Pharmacy 26.1 ml/min; Potassium 3.4 mmol/L (3.5-5.1)
[2024-06-26] MEDS: MAGNESIUM OXIDE 400 MG TAB PO SCH (08:03)
[2024-06-26] MEDS: CALCIUM 600MG + VIT D 400 IU TAB PO SCH (08:03)
[2024-06-26] MEDS: CYANOCOBALAMIN (B-12) 500 MCG TABLET PO SCH (08:03)
--- NOTE | 2024-06-26 08:24 | Fluoroscopy Report ---
FL retrograde includes kub CLINICAL HISTORY: RIGHT SIDE STENT PLACEMENT COMPARISON STUDY: None FLUOROSCOPY TIME: 20.1 seconds FLUOROSCOPY IMAGES: 2 EXPOSURE DOSE: 3.33 mGy FINDINGS: 2 C-arm spot images submitted for review showing a pigtail catheter with the tip to the rig ht of L4. Contrast is injected with surrounding, confined opacification. It no calyceal structures ar e demonstrated. IMPRESSION: As described. Refer to the procedural report for detailed description of based upon real time fluoroscopic observation. ACT 112: Negative or not required by law. Electronically signed by: Meghan Ballard M.D. 06/26/2024 8:22 AM
[2024-06-26] MEDS: POTASSIUM CHLORIDE / WTR 10 MEQ/100 ML PLCT IV SCH (08:50)
--- NOTE | 2024-06-26 09:10 | Hospitalist Progress Note ---
Date of Service June 26, 2024 Assessment & Plan (1) Complicated UTI (urinary tract infection): Plan Abdominal pain Acute UTI Right-sided ureteric stone Status post right-sided ureteral stent placement on 06/25/2024 Patient presented to the hospital with lower abdominal pain and chills. History of recurrent UTIs in the past. Urine culture growing E. coli, Enterococcus faecalis, Citrobacter Leukocytosis present Urinalysis suggestive of infection CT abdomen pelvis shows mild right renal pressure changes down to a small obstructing stone measuring 2 mm at the mid ureter junction Continue on Zosyn; will follow-up on final urine and blood culture. Will need follow-up with urology for definitive stone management. Acute on chronic CHFpEF Acute hypoxic respiratory failure Echocardiogram done in April 2024 shows grade 3 diastolic dysfunction. Normal systolic function Patient is on salt tablets which contributes to volume overload; will hold it. Continue on IV Lasix 20 mg twice daily Strict input and output monitoring SIADHhold salt tablets, monitor BMP Paroxysmal A-fibcontinue on amiodarone and metoprolol. Not on anticoagulation given history of prior falls and GI bleeding Hypothyroidismcontinue on levothyroxine Hypertensioncontinue on home meds DNR/DNI DVT prophylaxis heparin Dispositionfrom home; will consult PT OT Time spent evaluating patient, direct bedside care, chart review, placing orders, interpretation of diagnostic studies, discussion with consultants, patient, and family members, as well as other required patient management activities is 50 minutes Please note the above document was generated using voice recognition software. It may contain grammatical, syntax or spelling errors. Any formal questions or concerns about the content, text or information contained within the body of this dictation should be directly addressed to the provider for clarification Admission and Anticipated Discharge Date Admission Date: June 25, 2024 Subjective Seen and examined at bedside. She is comfortable; not in distress Reports some right lower abdominal pain. Afebrile overnight Review of Systems Review of Systems: All systems reviewed & are unremarkable except as noted in Subjective Physical Exam Physical Exam: Constitutional: Awake, alert oriented x 3. Respiratory: Bilateral basal crackles present. Cardiovascular: RRR, no murmur, no edema Vessels: no JVD or carotid bruit Chest: normal inspection of chest Abdomen: normal bowel sounds, soft, nontender, no hepatosplenomegaly Musculoskeletal: no cyanosis or clubbing, extremities motor strength 5/5. 1 + pitting edema Skin: no rashes, warm and dry normal turgor Neurologic: PERRL, EOMI, accommodation nl, no face palsy, no dysarthria CN's II- XI intact bilaterally and moves all extremities Psychiatric: A+Ox3, euthymic affect Results & Data Results & Data Vital Signs (Past 12 Hours) Vital Signs Temp Pulse Pulse Resp BP Pulse Ox O2 Del Method 06/26/24 07:45 36.6 C 55 L 18 124/59 L 96 Room Air 06/26/24 03:09 36.8 C 62 18 130/62 95 Room Air 06/25/24 22:45 36.6 C 63 18 132/62 94 Room Air 06/25/24 21:50 57 L
--- NOTE | 2024-06-26 09:46 | Urology Progress Note ---
Date of Service June 26, 2024 Assessment & Plan (1) Urinary tract infection: (2) Right ureteral stone: Plan: - Pt POD#1 s/p cystoscopy and right ureteral stent placement - Doing well, progressing as expected - Afebrile, lab work reviewed - creatinine 1.22, WBC 8.25 - Tolerating right ureteral stent with minimal bother - Urine and blood cultures are pending - Continue with broad-spectrum antibiotics and narrow per sensitivity data when available - Okay to d/c from perspective when medically stable - Recommend d/c with course of PO antibiotics, Tamsulosin, prn Pyridium and prn pain medication for stent management - Expected clinical course reviewed, all questions answered - Will arrange outpatient follow-up with our service to discuss stone treatment - will sign off, recall as needed Admission and Anticipated Discharge Date Admission Date: June 25, 2024 Subjective Patient seen and examined at bedside. She is awake and sitting up in bedside chair. She reports some flank discomfort last night, relieved with Tylenol. No pain at present. No fever or chills. Voiding spontaneously. Review of Systems Constitutional: as per Subjective / HPI Genitourinary: as per Subjective / HPI Physical Exam Constitutional: no acute distress Respiratory: normal respiratory effort; no respiratory distress and no labored breathing Gastrointestinal (Abdomen): Inspection/Auscultation: abdomen normal to inspection Musculoskeletal: Head/Neck/Chest: normocephalic Neurologic: moves all extremities and awake Psychiatric: Orientation: alert and oriented x 3 Results & Data Vital Signs (Past 12 Hours) Vital Signs Temp Pulse Pulse Resp BP Pulse Ox O2 Del Method 06/26/24 07:45 36.6 C 55 L 18 124/59 L 96 Room Air 06/26/24 03:09 36.8 C 62 18 130/62 95 Room Air 06/25/24 22:45 36.6 C 63 18 132/62 94 Room Air 06/25/24 21:50 57 L PG Care Time/CCT Total # of Minutes Spent Total Time Spent with Patient: Total time spent is greater than 50% in coordination of care (as documented) at patient's floor/unit and/or counseling patient: Coding Level of Care Code 25640 SUB INP/OBS CARE 06/03MIN Diagnoses Urinary tract infection N39.0 Right ureteral stone N20.1
--- NOTE | 2024-06-26 12:51 | Electrocardiogram Report ---
Test Reason : Blood Pressure : */* mmHG Vent. Rate : 71 BPM Atrial Rate : 71 BPM P-R Int : 370 ms QRS Dur : 138 ms QT Int : 440 ms P-R-T Axes : 88 -57 55 degrees QTcB Int : 478 ms Sinus rhythm with 1st degree A-V block Left axis deviation Left bundle branch block Abnormal ECG When compared with ECG of 02-May-2024 09:41, No significant change was found Confirmed by Shravan Trinidad ([id number]) on 06/26/2024 12:50:38 PM Referred By: REFERRED SELF Confirmed By: Shravan Trinidad
[2024-06-27 06:24] LABS: Basophils # (auto) 0.05 K/uL (0.00-0.20); Basophils % (auto) 0.7 %; Eosinophils # (auto) 0.44 K/uL (0.00-0.50); Eosinophils % (auto) 6.3 %; Hematocrit (blood only) 30.3 % (37.0-47.0); Hemoglobin 9.7 g/dl (12.0-16.0); Immature Granulocytes # (auto) 0.04 K/uL (0.01-0.20); Immature Granulocytes % (auto) 0.6 %; Lymphocytes # (auto) 1.09 K/uL (1.20-3.40); Lymphocytes % (auto) 15.6 %; Mean Corpuscular Hemoglobin 30.4 pg (25.0-34.0); Mean Platelet Volume 10.7 fL (9.4-12.4); Monocytes # (auto) 1.24 K/uL (0.11-0.59); Monocytes % (auto) 17.8 %; Neutrophils # (auto) 4.11 K/uL (1.40-6.50); Platelet Count 176 K/uL (130-400); RDW Coefficient of Variation 15.3 % (11.5-14.5); RDW Standard Deviation 53.6 fL (36.4-46.3); Red Blood Count 3.19 M/uL (4.20-5.40); White Blood Count 6.97 K/ul (4.8-10.8)
[2024-06-27 06:51] LABS: BUN Creatinine Ratio 15.3 (10-20); Creatinine Clr Calc Pharmacy 28.7 ml/min; Potassium 3.5 mmol/L (3.5-5.1)
[2024-06-27 07:23] VITALS: RESP 17; TEMP 97.3; O2SAT 98
[2024-06-27 08:34] VITALS: BP 150/59
[2024-06-27 08:39] VITALS: PULSE 61
--- NOTE | 2024-06-27 10:58 | Discharge Summary ---
Date of Service June 27, 2024 Admission HPI Per Admitting Provider History obtained from chart review and interview with the patient Patient confinement in the hospital from May 02 to May 12 for CHF, PEYTON on CKD and possible UTI. She was then discharged to [facility]. She came back home after staying in [facility] for 1 week. Patient has [facility] at home who comes and checks on her. 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 Patient presents to the hospital for evaluation of abdominal discomfort in the lower abdomen that radiates to the back. Denies any nausea/vomiting; reports some chills; no fever. She reports getting similar symptoms in the past when she gets UTI. Multiple admission in the past for similar issue On presentation to the ED, she was afebrile, normotensive and hypoxic. She was placed on 2 L of oxygen by nasal cannula. Lab work reveals leukocytosis. Creatinine at baseline. Urinalysis suggestive of infection. Chest x-ray reviewed; cardiomegaly with venous congestion present along with small bilateral pleural effusion. CT abdomen pelvis was done; shows mild right renal pressure changes down to a small obstructing stone measuring 2 mm at the mid ureter junction Patient was referred for admission Admission Exam Per Admitting Provider Constitutional: Awake, alert oriented x 3. Respiratory: Bilateral basal crackles present. Cardiovascular: RRR, no murmur, no edema Vessels: no JVD or carotid bruit Chest: normal inspection of chest Abdomen: normal bowel sounds, soft, nontender, no hepatosplenomegaly Musculoskeletal: no cyanosis or clubbing, extremities motor strength 5/5. 1 + pitting edema Skin: no rashes, warm and dry normal turgor Neurologic: PERRL, EOMI, accommodation nl, no face palsy, no dysarthria CN's II- XI intact bilaterally and moves all extremities Psychiatric: A+Ox3, euthymic affect Principal Diagnosis Abdominal pain Acute UTI Right-sided ureteric stone Status post right-sided ureteral stent placement on 06/25/2024 Acute on chronic CHFpEF Acute hypoxic respiratory failure Discharge Exam Constitutional: Awake, alert oriented x 3. Respiratory: b/l clear breath sounds Cardiovascular: RRR, no murmur, no edema Vessels: no JVD or carotid bruit Chest: normal inspection of chest Abdomen: normal bowel sounds, soft, nontender, no hepatosplenomegaly Musculoskeletal: no cyanosis or clubbing, extremities motor strength 5/5. no pitting edema Skin: no rashes, warm and dry normal turgor Neurologic: PERRL, EOMI, accommodation nl, no face palsy, no dysarthria CN's II- XI intact bilaterally and moves all extremities Psychiatric: A+Ox3, euthymic affect Discharge Data Allergies Allergy/AdvReac Type Severity Reaction Status Date / Time Quinolones Allergy Intermediate HIVES Verified 03/10/24 10:07 dabigatran etexilate Allergy Unknown ON Verified 03/10/24 10:07 [facility] LIST metronidazole AdvReac Intermediate GI SYMPTOMS Verified 03/10/24 10:07 sulfamethoxazole AdvReac Mild GI SYMPTOMS Verified 03/10/24 10:07 trimethoprim AdvReac Mild GI SYMPTOMS Verified 03/10/24 10:07 Consultations 06/25/24 08:14 ED Decision to Admit Stat 06/25/24 08:49 Consult Urology Routine Procedures Performed Operation Date: 06/25/24 15:00 Actual Procedures p Ureteral Stent Insertion/Removal(Right) - Cordell Hutchinson MD Ordered Studies 06/25/24 FL retrograde includes kub Routine 06/25/24 06:51 CT abd pelvis IV con only Stat Hospital Course (1) Complicated UTI (urinary tract infection): Plan Abdominal pain Acute UTI Right-sided ureteric stone Status post right-sided ureteral stent placement on 06/25/2024 Patient presented to the hospital with lower abdominal pain and chills. History of recurrent UTIs in the past. Urine culture growing E. coli, Enterococcus faecalis, Citrobacter Leukocytosis present on admission Urinalysis suggestive of infection; Urince cx- e.coli CT abdomen pelvis shows mild right renal pressure changes down to a small obstructing stone measuring 2 mm at the mid ureter junction During the hospitalization; patient was treated with IV antibiotic with improvement in her symptoms. Underwent right-sided ureteral stent placement on June 25 At discharge, patient was placed on oral antibiotics. Patient to follow-up with urology for definitive stone management as outpatient. She did not have any pain or discomfort at the time of discharge. Acute on chronic CHFpEF Acute hypoxic respiratory failure Echocardiogram done in April 2024 shows grade 3 diastolic dysfunction. Normal systolic function Patient is on salt tablets which contributes to volume overload; will hold it. Patient was diuresed with IV Lasix with improvement in shortness of breath, basilar crackles and edema. Patient serum sodium was within normal range throughout the hospitalization. Patient was asked to continue to hold salt tablet at the time of discharge. Discussed fluid restriction with patient at the time of the discharge. Patient will need BMP to check on her serum sodium and kidney function during follow-up with her PCP. Please note the above document was generated using voice recognition software. It may contain grammatical, syntax or spelling errors. Any formal questions or concerns about the content, text or information contained within the body of this dictation should be directly addressed to the provider for clarification Total Time Total Time Spent Total Time Spent (In Minutes): 45 Total Time Includes: Examination of the Patient, Discharge Planning, Medication Reconciliation, Communication With Other Providers and Other Discharge Plan Discharge Items Patient Disposition: Home - Self-Care Reason For Visit: UTI Discharge Diagnosis: Acute UTI Right-sided ureteric stone Status post right-sided ureteral stent placement on 06/25/2024 Activity: Resume your previous activity Non-emergency contact: Primary Care Provider Call non-emergency contact if: you have any medication questions and your sym ptoms worsen Follow-up/Referrals: Kodi Lizarraga MD [Primary Care Provider] - (Date & Time 07/03/2024 9:40 AM Provider: Kodi Lizarraga MD [facility] ) Diet: Regular Fluids: 1500ml (6 cups) Addtl Attending Provider Instructions: You were admitted to the hospital due to a urinary tract infection and stone in the right ureter. You underwent antibiotic treatment for the hospitalization. Urology also saw you and placed a stent on your right ureter. They will call and make an follow-up appointment. To complete the antibiotic course, you are prescribed Augmentin to be taken twice a day for 7 more days. You are also found to be in heart failure. Salt tablet increases fluid reten tion and likely is the reason for recurrent heart failure exacerbation. Please stop using salt tablets for now. Maintain fluid restriction of 1500 cc. An appointment with your primary care doctor will be made for you sometime next week to check on your electrolytes level. Pending Studies at Discharge: No Stand-Alone Forms: [employer], Smoking Cessation Medications and DC Order Prescriptions: New amoxicillin-pot clavulanate 875-125 mg tablet 1 tab PO BID 7 Days Qty: 14 0RF Continued metoprolol succinate 50 mg tablet extended release 24 hr 50 mg PO BID Qty: 180 3RF amiodarone 200 mg tablet 200 mg PO QDD Qty: 90 3RF furosemide 40 mg tablet 40 mg PO QAM Qty: 90 3RF Patient Comments: was told yesterday to cut down to 20 mg amlodipine 10 mg tablet 10 mg PO QDD Qty: 90 3RF aspirin 325 mg tablet 325 mg PO QAM Qty: 100 levothyroxine 75 mcg capsule 75 mcg PO DAILYBB diclofenac sodium 1 % gel 2 g TOPICAL QID PRN (Reason: Pain) Rx Instructions: Apply to right foot four times daily, as needed for pain. Multiple Vitamin-Minerals Tablet 1 tab PO DAILY buspirone 5 mg tablet 5 mg PO BID PRN (Reason: Anxiety) cyanocobalamin (vitamin B-12) 1,000 mcg Tablet 1,000 mcg PO Q OTHER DAY magnesium oxide 500 mg magnesium Tablet 500 mg PO DAILY calcium carbonate-vitamin D3 [Calcium 600 + D(3)] 600 mg-10 mcg (400 unit) Tablet 1 tab PO DAILY potassium gluconate 600 mg (99 mg) Tablet 600 mg PO DAILY PreserVision AREDS-2 250-90-40-1 mg Capsule 2 tab PO DAILY Systane Ultra 0.4-0.3 % Drops 1 drp OPHTHALMIC (EYE) QID Advanced Probiotic 625 mg (10 billion cell) Capsule 2 cap PO DAILY Qty: 30 0RF Discontinued sodium chloride 1,000 mg tablet,soluble 1,000 mg PO BID Qty: 180 3RF Discharge Orders: Discharge Order (Routine); Ordered 06/27/24 Ordered By: Elmer Gifford Admission Data Admit Date/Time: 06/25/24 08:46 Attending Provider: Elmer Gifford Admit Provider: Elmer Gifford Primary Care Provider: Kodi Lizarraga Other Providers: Elmer Gifford; Cordell Hutchinson Other Interventions: Discharge Summary Assessment (RN) Last Done: 06/27/24 08:34
== END 2024-06-27 11:33 | disposition home or self-care (01) | DRG 659 ==
LOC: ED 05:31 → EDINP 08:46 → 2N 11:25

== ENCOUNTER 2024-08-10 14:21 | Inpatient (IN) ==
[2024-08-10 14:48] LABS: Basophils % (auto) 0.9 %; Eosinophils # (auto) 0.38 K/uL (0.00-0.50); Eosinophils % (auto) 3.3 %; Hematocrit (blood only) 35.4 % (37.0-47.0); Immature Granulocytes # (auto) 0.06 K/uL (0.01-0.20); Immature Granulocytes % (auto) 0.5 %; Lymphocytes # (auto) 2.84 K/uL (1.20-3.40); Lymphocytes % (auto) 24.6 %; Mean Corpuscular Hemoglobin 31.7 pg (25.0-34.0); Mean Corpuscular Hgb Conc 33.9 g/dL (32.0-36.0); Mean Corpuscular Volume 93.4 fL (80.0-100.0); Mean Platelet Volume 10.3 fL (9.4-12.4); Monocytes # (auto) 1.54 K/uL (0.11-0.59); Monocytes % (auto) 13.3 %; Neutrophils # (auto) 6.62 K/uL (1.40-6.50); Neutrophils % (auto) 57.4 %; Platelet Count 256 K/uL (130-400); RDW Coefficient of Variation 14.2 % (11.5-14.5); RDW Standard Deviation 48.7 fL (36.4-46.3); Red Blood Count 3.79 M/uL (4.20-5.40); White Blood Count 11.54 K/ul (4.8-10.8)
[2024-08-10 15:06] LABS: Appearance Urine Turbid (Clear); Bacteria Urine Automated 3+ (None Seen); Bilirubin Urine Negative (Negative); Blood Urine 2+ (Negative); Cast Urine Automated >20 /lpf (0-2); Color Urine Yellow; Glucose Urine UA Negative (Negative); Ketones Urine Negative (Negative); Leukocyte Esterase Urine 3+ (Negative); Nitrite Urine Negative (Negative); Protein Urine 1+ (Negative); RBC Urine Automated >20 /hpf (0-2); Specific Gravity Urine 1.014 (1.000-1.030); Urobilinogen Urine Negative (Negative); WBC Urine Automated >50 /hpf (0-5)
--- NOTE | 2024-08-10 15:10 | Emergency Department Note ---
Impression & Plan Acute UTI, Renal colic, Failure of outpatient treatment, Leukocytosis ED Provider Note NAME: JEN GALLOWAY AGE: 84 SEX: F : 1940 ARRIVES VIA: Walk-In INFORMANT: [Patient] ED PROVIDER(S): [Yuan Russo MD] CHIEF COMPLAINT: Urinary symptoms HISTORY OF PRESENT ILLNESS: The patient is an 84-year-old female who has a right ureteral stent. She was to have the stent removed but was found to have a UTI. She was placed on Macrobid. She has noticed continued frequency and burning with urination. She spoke with urology today and, apparently, was referred in for IV antibiotics and admission. She grew out organisms resistant to antibiotics that are not IV. There has been no fever, she does have some crampy lower abdominal pain at times. She has not had vomiting. - Urine Culture Final 08/05/24-1126 Organism 1 Pseudomonas aeruginosa [place] Count >100,000 CFU/ml Sens Sensitivities to Follow Organism 2 Hafnia alvei [place] Count >100,000 CFU/ml Sens Sensitivities to Follow P aerugino Haf alvei RX M.I.C. RX M.I.C. --- --------- --- --------- Amikacin S <=16 S <=16 Aztreonam R >16 Cefepime S 4 S <=2 Cefotaxime S <=2 Ceftazidime S 4 Ceftriaxone S <=1 Cefuroxime S <=4 Ciprofloxacin R 2 S <=0.25 Ertapenem S <=0.5 Gentamicin S <=2 Levofloxacin R >4 S <=0.5 Meropenem S <=1 S <=1 Nitrofurantoin S <=32 Tobramycin S <=2 S <=2 Trimeth/Sulfa S <=0.5/9.5 Pip/Tazo S <=8 S <=8 S = SENSITIVE I = INTERMEDIATE R = RESISTANT PMHx/PSHx/Social Hx: See Below PHYSICAL EXAM: GENERAL: Patient is in no acute distress. HEENT: No acute trauma, normocephalic atraumatic, mucous membranes moist, no nasal congestion. NECK: No stridor, no adenopathy, no meningismus, trachea is midline. LUNGS: Occasional crackles, no wheezing. No respiratory distress. HEART: Slightly irregular rhythm with a 2/6 systolic murmur. Normal rate. ABDOMEN: Soft, nontender, no peritonitis. EXTREMITIES: No cyanosis, full range of motion of all the joints without pain or difficulty. NEUROLOGIC: Oriented x 3, no acute motor or sensory deficits, no focal weakness. SKIN: No jaundice, no diaphoresis. DIFFERENTIAL DIAGNOSIS: Pyelonephritis, failed outpatient management, UTI, renal failure, among others. EMERGENCY DEPARTMENT PROCEDURES: MEDICAL DECISION MAKING: There is a mild leukocytosis, this could be consistent with infection. There is a normal hemoglobin and platelet count. Creatinine is mildly elevated but this appears somewhat baseline looking back at recent testing. There is no electrolyte abnormality in need of emergent correction. There is no worrisome liver enzyme elevation. Urinalysis does show findings of infection. KUB shows the right ureteral stent to be in proper position. On exam, the patient was not toxic or febrile. The patient presents with a fairly resistant UTI. It appears only IV antibiotics will suffice. The patient is to be hospitalized. I did give a dose of IV cefepime which should work for both organisms growing on her recent culture. The patient is aware of the need for a hospital stay. I did speak with case management, the on-call hospitalist was consulted. Prior/Outside records/notes reviewed: Urology note from 08/03/2024 describing her presentation, the concern for infection and the plan outpatient. Imaging/x-ray results per my interpretation: KUB shows the right ureteral stent to be in proper position. Chronic Medical/Social conditions affecting care: Advanced age. Care/Management discussed with: Case management, the on-call hospitalist. Level of care consideration(s): After review of the information above and other included data: --I believe the patient requires escalation of care to admission DISPOSITION: Admission Past Med/Surg History Problem List Leukocytosis (Acute) Failure of outpatient treatment (Acute) Renal colic (Acute) Acute UTI (Acute) Encounter for pre-operative examination Hydronephrosis (Acute) Right ureteral stone Generalized weakness (Acute) Macular degeneration Cat scratch 02/17/2024 High serum calcium (Acute) 01/2024 Complicated UTI (urinary tract infection) tx for UTI (finished abx 07/24/24) Chronic kidney disease, stage 3a Aortic insufficiency Mitral regurgitation Bilateral pleural effusion (Acute) Paroxysmal atrial fibrillation Anemia (Acute) Hypothyroidism (HFpEF) heart failure with preserved ejection fraction On amiodarone therapy Hypertension Medical History Pulmonary hypertension RSVP 40-50mmHg per 04/2024 ECHO Heart valve disease 04/2024 ECHO: mild-mod AR, mod MR, mild TR CHIQUITA (generalized anxiety disorder) PVD (peripheral vascular disease) Hyperlipidemia SIADH (syndrome of inappropriate ADH production) usually takes salt tab; has been off since 06/27/24 [facility] admission History of recent hospitalization [facility] 06/25-06/27/24: dx: acute UTI, R ureteric stone (stent placement 06/25/24) acute on chronic CHF, acute hypoxemic resp failure Urinary tract infection Infection of wound hematoma H/O- 2016 HTN (hypertension) On amiodarone therapy Hypothyroidism History of anemia no current issues Hx of pleural effusion (2021) seen most recently on abd/pelvis CT 06/25/24 Chronic kidney disease, stage 3a IIIa/IIIb per chart review Macular degeneration Kidney stones Hx of congestive heart failure Paroxysmal atrial fibrillation controlled w/ amiodarone - follows w/ Dr Canela Hx of recurrent urinary tract infection completed abx 07/24/24 Pulmonary edema seen most recently abd/pelvis CT 06/25/24 Elevated brain natriuretic peptide (BNP) level hx of Shortness of breath mild, w/ exertion Chronic heart failure with preserved ejection fraction 05/02/24 ECHO: Grade II DD c/w marked CHF; EF 55-60% Atypical chest pain hx - denies current issues GERD (gastroesophageal reflux disease) Pneumonia hx- no issues since ~2021 per pt Diverticulitis h/o > 2019 Surgical History History of cystoscopy cysto, R ureteral stent 06/25/24: MAC without issue Hx of tubal ligation History of umbilical hernia repair incarcerated - unknown age Hx of hernia repair right inguinal 2013 Hx of cholecystectomy Hx of hysterectomy Family History Mother Stroke Social History Smoking Status: Never smoker Second Hand Exposure: No; Do You Dip or Chew Tobacco: No; Hx Alcohol Use: No Hx Substance Use: No Preferred Language: Bangladeshi Communication Ability: Effective Spider Assembler Required: No Beliefs That Will Affect Care: None marital status: Current Living Situation: Alone Current Living Situation Comment: Has an aide who comes over current occupational status: retired How many Children do You have: 3 Feels Safe at Home: Yes Assistive Devices: Denture - Upper, Denture - Lower, Glasses, Hearing Aid - Bilateral, Walker and Wheelchair Allergies Allergies Allergy/AdvReac Type Severity Reaction Status Date / Time Quinolones Allergy Intermediate HIVES Verified 08/03/24 08:25 dabigatran etexilate Allergy Unknown ON Verified 08/03/24 08:25 [facility] L[facility] metronidazole AdvReac Intermediate GI SYMPTOMS Verified 08/03/24 08:25 sulfamethoxazole AdvReac Mild GI SYMPTOMS Verified 08/03/24 08:25 trimethoprim AdvReac Mild GI SYMPTOMS Verified 08/03/24 08:25 Home Meds Home Medications Medication Instructions Recorded Confirmed aspirin 325 mg tablet 325 mg PO QAM #100 tabs 01/28/19 08/03/24 levothyroxine 75 mcg capsule 75 mcg PO DAILYBB 03/14/19 08/03/24 diclofenac sodium 1 % topical gel 2 g topical QID PRN Pain 05/27/21 08/03/24 cyanocobalamin (vitamin B-12) 1,000 mcg PO Q OTHER DAY 07/18/22 08/03/24 1,000 mcg tablet multivitamin with minerals 1 tab PO DAILY 07/18/22 08/03/24 (Multiple Vitamin-Minerals tablet) calcium 600 mg (as 1 tab PO DAILY 11/27/23 08/03/24 carbonate)-vitamin D3 10 mcg (400 unit) tablet (Calcium 600 + D(3)) magnesium oxide 500 mg PO DAILY 11/27/23 08/03/24 peg 400-propylene glycol 0.4 %-0.3 1 drp ophthalmic (eye) QID 11/27/23 08/03/24 % eye drops (Systane Ultra) potassium gluconate 600 mg (99 mg) 600 mg PO DAILY 11/27/23 08/03/24 tablet vit C 250 mg-vit E 90 mg-zinc 40 1 tab PO BID 11/27/23 08/03/24 mg-copper 1 [id number] capsule (PreserVision AREDS-2) Previous Rx's Medication Instructions Recorded amlodipine 10 mg tablet 10 mg PO QDD #90 tabs 03/21/20 L.acidop,casei,lactis,rham-B.lact,nicole 2 cap PO DAILY #30 caps 02/21/24 625 mg (10 billion cell) capsule (Advanced Probiotic) amiodarone 200 mg tablet 200 mg PO QDD #90 tabs 05/11/24 furosemide 40 mg tablet 40 mg PO QAM #90 tabs 06/02/24 metoprolol succinate 50 mg 50 mg PO BID #180 tabs 07/14/24 tablet,extended release 24 hr Results & Data (ED) Vital Signs Vital Signs - 24 hr 08/10/24 14:22 08/10/24 16:24 Temperature 37.0 C Temperature Source Temporal Artery Scan Pulse Rate 62 60 Respiratory Rate 19 Respiratory Effort / Characteristics Non-Labored Spontaneous Respiratory Depth Normal Blood Pressure 138/56 L Blood Pressure Mean 83 Pulse Oximetry 96 Oxygen Delivery Method Room Air Sepsis Recent Fever Within 48 Hours No Sepsis New/Unexplained Change in Mental Status No Sepsis Action Taken by Nursing No Action Required Home Medications Current Medication List: was personally reviewed by me Laboratory Data Attestation: I reviewed the patient's lab results. 08/10/24 14:35 08/10/24 14:35 Lab Results 08/10/24 08/10/24 Range/Units 14:35 14:40 WBC 11.54 H (4.8-10.8) K/ul RBC 3.79 L (4.20-5.40) M/uL Hgb 12.0 (12.0-16.0) g/dl Hct 35.4 L (37.0-47.0) % MCV 93.4 (80.0-100.0) fL MCH 31.7 (25.0-34.0) pg MCHC 33.9 (32.0-36.0) g/dL RDW Std Deviation 48.7 H (36.4-46.3) fL RDW Coeff of Ursula 14.2 (11.5-14.5) % Plt Count 256 (130-400) K/uL MPV 10.3 (9.4-12.4) fL Immature Gran % (Auto) 0.5 % Neut % (Auto) 57.4 % Lymph % (Auto) 24.6 % [place] % (Auto) 13.3 % Eos % (Auto) 3.3 % Baso % (Auto) 0.9 % Neut # (Auto) 6.62 H (1.40-6.50) K/uL Lymph # (Auto) 2.84 (1.20-3.40) K/uL [place] # (Auto) 1.54 H (0.11-0.59) K/uL Eos # (Auto) 0.38 (0.00-0.50) K/uL Baso # (Auto) 0.10 (0.00-0.20) K/uL Immature Gran # (Auto) 0.06 (0.01-0.20) K/uL Sodium 137 (136-145) mmol/L Potassium 4.1 (3.5-5.1) mmol/L Chloride 101 (98-107) mmol/L Carbon Dioxide 30 (21-32) mmol/L Anion Gap 6 (3-11) BUN 18 (6-23) mg/dl Creatinine 1.21 H (0.6-1.2) mg/dl Est Cr Clr Drug Dosing Not Reportable eGFR 43.65 BUN/Creatinine Ratio 14.9 (10-20) Glucose 103 H (70-99(Fasting)) mg/dl Calcium 9.8 (8.6-10.3) mg/dl Total Bilirubin 0.3 (0.2-1.0) mg/dl AST 20 (13-39) U/L ALT 11 (7-52) U/L Alkaline Phosphatase 99 (34-104) U/L Total Protein 8.3 (6.0-8.3) gm/dl Albumin 4.3 (3.4-5.0) gm/dl Globulin 4.0 (2.5-4.0) gm/dl Albumin/Globulin Ratio 1.1 (0.9-2) Urine Color Yellow Urine Appearance Turbid A (Clear) Urine pH 7.0 (4.5-7.5) Ur Specific [place] 1.014 (1.000-1.030) Urine Protein 1+ H (Negative) Urine Glucose (UA) Negative (Negative) Urine Ketones Negative (Negative) Urine Blood 2+ H (Negative) Urine Nitrite Negative (Negative) Urine Bilirubin Negative (Negative) Urine Urobilinogen Negative (Negative) Ur Leukocyte Esterase 3+ H (Negative) Urine WBC (Auto) >50 H (0-5) /hpf Urine RBC (Auto) >20 H (0-2) /hpf U Hyaline Cast (Auto) >20 H (0-2) /lpf U Epithel Cells (Auto) 3-5 H (0-2) /hpf Urine Bacteria (Auto) 3+ H (None Seen) Administered Medications Discontinued Medications Cefepime HCl (Maxipime 2000mg) 2,000 mg in 20 mls @ 5 mls/min IV NOW STA Stop: 08/10/24 15:09 Last Admin: 08/10/24 15:30 Dose: 5 mls/min Documented By: BLD Imaging Data Radiologist's Impression: KUB X-Ray 08/10/24 15:04 Clinical history: Stent One view of the abdomen was obtained Comparison is made to the CT dated 07/22/2024 Findings: The bowel gas pattern appears unremarkable. A right ureteral stent is again seen. No definite renal or ureteral calculi are seen. Surgical clips traversing the distal with prior cholecystectomy. There is mild lumbar scoliosis and degenerative disc disease Impression: Unchanged right ureteral stent Electronically signed by Sundar Gale 08-10-2024 4:15 PM Discharge Plan Visit Data Chief Complaint: Urinary Symptoms Stated Complaint: UTI, BURNING PAIN ED Provider: Yuan Russo Discharge Problem: Acute UTI, Renal colic, Failure of outpatient treatment, Leukocytosis Patient Disposition: Admitted As Inpatient Condition: Fair Forms Stand Alone Forms: My [facility] Prescriptions Prescriptions: No Action amiodarone 200 mg tablet 200 mg PO QDD Qty: 90 3RF furosemide 40 mg tablet 40 mg PO QAM Qty: 90 3RF Patient Comments: was told yesterday to cut down to 20 mg metoprolol succinate 50 mg tablet extended release 24 hr 50 mg PO BID Qty: 180 3RF amlodipine 10 mg tablet 10 mg PO QDD Qty: 90 3RF aspirin 325 mg tablet 325 mg PO QAM Qty: 100 levothyroxine 75 mcg capsule 75 mcg PO DAILYBB diclofenac sodium 1 % gel 2 g TOPICAL QID PRN (Reason: Pain) Rx Instructions: Apply to right foot four times daily, as needed for pain. Multiple Vitamin-Minerals Tablet 1 tab PO DAILY cyanocobalamin (vitamin B-12) 1,000 mcg Tablet 1,000 mcg PO Q OTHER DAY magnesium oxide 500 mg magnesium Tablet 500 mg PO DAILY calcium carbonate-vitamin D3 [Calcium 600 + D(3)] 600 mg-10 mcg (400 unit) Tablet 1 tab PO DAILY potassium gluconate 600 mg (99 mg) Tablet 600 mg PO DAILY PreserVision AREDS-2 250-90-40-1 mg Capsule 1 tab PO BID Systane Ultra 0.4-0.3 % Drops 1 drp OPHTHALMIC (EYE) QID Advanced Probiotic 625 mg (10 billion cell) Capsule 2 cap PO DAILY Qty: 30 0RF Referrals Referrals: Kodi Lizarraga MD [Primary Care Provider] - Discharge Problem: Leukocytosis Qualifiers: Leukocytosis type: unspecified Qualified Code(s): D72.829 - Elevated white blood cell count, unspecified
[2024-08-10 15:11] LABS: Alanine Aminotransferase 11 U/L (7-52); Albumin Globulin Ratio 1.1 (0.9-2); Albumin Level 4.3 gm/dl (3.4-5.0); Alkaline Phosphatase 99 U/L (34-104); Anion Gap 6 (3-11); Aspartate Aminotransferase 20 U/L (13-39); BUN Creatinine Ratio 14.9 (10-20); Bilirubin,Total 0.3 mg/dl (0.2-1.0); Blood Urea Nitrogen 18 mg/dl (6-23); Calcium 9.8 mg/dl (8.6-10.3); Carbon Dioxide 30 mmol/L (21-32); Chloride 101 mmol/L (98-107); Glucose 103 mg/dl (70-99(Fasting)); Potassium 4.1 mmol/L (3.5-5.1); Sodium 137 mmol/L (136-145); Total Protein 8.3 gm/dl (6.0-8.3)
[2024-08-10] MEDS: CEFEPIME 2000MG 2,000 MG/20 ML SYR IV STA (15:30)
--- NOTE | 2024-08-10 16:16 | XRay Report ---
Clinical history: Stent One view of the abdomen was obtained Comparison is made to the CT dated 07/22/2024 Findings: The bowel gas pattern appears unremarkable. A right ureteral stent is again seen. No definite renal or ureteral calculi are seen. Surgical clips traversing the distal with prior cholecystectomy. There is mild lumbar scoliosis and degenerative disc disease Impression: Unchanged right ureteral stent Electronically signed by Sundar Gale 08-10-2024 4:15 PM
--- NOTE | 2024-08-10 18:37 | History & Physical Report ---
Date of Service August 10, 2024 Assessment & Plan (1) Acute UTI: (2) Renal colic: Plan Pt is an 84 y/o female with PMHx significant for PAF, chronic HFpEF, LBBB, moderate to severe MR, moderate AI, CKD3, hypothyroidism, SIADH, GERD who was sent in by her Urologist for IV treatment of her UTI. Complicated Urinary Tract Nephrolithiasis hx of Right nephroureteral stent UA drawn by urology on 08/03/24 Urine cx grew pseudomonas resistant to po fluoroquinolones as well as Hafnia alvei IV Cefepime repeat urine cx drawn in the ED pending, follow Urology consult, appreciate further recs Chronic Kidney Disease Cr baseline of 1.1 to 1.2 Avoid nephrotoxic meds as able Continue to monitor Hx of atrial fibrillation Continue home amiodarone and metoprolol Not currently on anticoagulation due to falls and prior Hx of GI bleeding Continue other home meds as ordered Diet: HH DVT prophylaxis: Heprain SQ Dispo: admit to med/surg with tele History of Present Illness Chief Complaint: UTI Primary Care Provider: Kodi Lizarraga MD Pt is an 84 y/o female with PAF, chronic HFpEF, LBBB, moderate to severe MR, moderate AI, CKD3, hypothyroidism, SIADH, GERD who was sent in by her Urologist for IV treatment of her UTI. Pt with hearing loss and hearing aids left at home. History obtained from family member at bedside. Family member states that she has been having recurrent UTIs since February. Had to have a procedure cancelled with Urology for ureteroscopy and laser lithotripsy on 08/03/2024 as she was having dysuria. A urine culture drawn by urology noted pseudomonas resistant to the only oral options for treatment. So she was advised by Urology to present to the ED for admission and IV antibiotics. Denies fevers, chills or night sweats. States she was on an oral antibiotic that she recently completed before the burning and dysuria started once more. States she is bloated and has a constant right sided ache. Denies N/V Allergies Allergy/AdvReac Type Severity Reaction Status Date / Time Quinolones Allergy Intermediate HIVES Verified 08/10/24 17:00 dabigatran etexilate Allergy Unknown ON Verified 08/10/24 17:00 [facility] metronidazole AdvReac Intermediate GI SYMPTOMS Verified 08/10/24 17:00 sulfamethoxazole AdvReac Mild GI SYMPTOMS Verified 08/10/24 17:00 trimethoprim AdvReac Mild GI SYMPTOMS Verified 08/10/24 17:00 Home Medications Medication Instructions Recorded Confirmed Type aspirin 325 mg tablet 325 mg PO QAM #100 tabs 01/28/19 08/10/24 History levothyroxine 75 mcg capsule 75 mcg PO DAILYBB 03/14/19 08/10/24 History amlodipine 10 mg tablet 10 mg PO QDD #90 tabs 03/21/20 08/10/24 Rx diclofenac sodium 1 % topical gel 2 g topical QID PRN Pain 05/27/21 08/10/24 History cyanocobalamin (vitamin B-12) 1,000 mcg PO Q OTHER DAY 07/18/22 08/10/24 History 1,000 mcg tablet multivitamin with minerals 1 tab PO DAILY 07/18/22 08/10/24 History (Multiple Vitamin-Minerals tablet) calcium 600 mg (as 1 tab PO DAILY 11/27/23 08/10/24 History carbonate)-vitamin D3 10 mcg (400 unit) tablet (Calcium 600 + D(3)) peg 400-propylene glycol 0.4 %-0.3 1 drp ophthalmic (eye) QID 11/27/23 08/10/24 History % eye drops (Systane Ultra) vit C 250 mg-vit E 90 mg-zinc 40 2 tab PO QAM 11/27/23 08/10/24 History mg-copper 1 [id number]-[id number] capsule (PreserVision AREDS-2) amiodarone 200 mg tablet 200 mg PO QDD #90 tabs 05/11/24 08/10/24 Rx furosemide 40 mg tablet 40 mg PO QAM #90 tabs 06/02/24 08/10/24 Rx metoprolol succinate 50 mg 50 mg PO BID #180 tabs 07/14/24 08/10/24 Rx tablet,extended release 24 hr L.acidop,casei,lactis,rham-B.lact,nicole 2 cap PO QAM 08/10/24 08/10/24 History 625 mg (10 billion cell) capsule (Advanced Probiotic) magnesium oxide 400 mg PO QAM 08/10/24 08/10/24 History potassium gluconate 595 mg (99 mg) 595 mg PO QAM 08/10/24 08/10/24 History tablet Past Med/Surg History Problem List (Updated 08/10/24 @ 19:43 by Background Daemon) Leukocytosis (Acute) Failure of outpatient treatment (Acute) Renal colic (Acute) Acute UTI (Acute) Encounter for pre-operative examination Hydronephrosis (Acute) Right ureteral stone Generalized weakness (Acute) Macular degeneration Cat scratch 02/17/2024 High serum calcium (Acute) 01/2024 Complicated UTI (urinary tract infection) tx for UTI (finished abx 07/24/24) Chronic kidney disease, stage 3a Aortic insufficiency Mitral regurgitation Bilateral pleural effusion (Acute) Paroxysmal atrial fibrillation Anemia (Acute) Hypothyroidism (HFpEF) heart failure with preserved ejection fraction On amiodarone therapy Hypertension Medical History Pulmonary hypertension RSVP 40-50mmHg per 04/2024 ECHO Heart valve disease 04/2024 ECHO: mild-mod AR, mod MR, mild TR CHIQUITA (generalized anxiety disorder) PVD (peripheral vascular disease) Hyperlipidemia SIADH (syndrome of inappropriate ADH production) usually takes salt tab; has been off since 06/27/24 [facility] admission History of recent hospitalization [facility] 06/25-06/27/24: dx: acute UTI, R ureteric stone (stent placement 06/25/24) acute on chronic CHF, acute hypoxemic resp failure Urinary tract infection Infection of wound hematoma H/O- 2016 HTN (hypertension) On amiodarone therapy Hypothyroidism History of anemia no current issues Hx of pleural effusion (2021) seen most recently on abd/pelvis CT 06/25/24 Chronic kidney disease, stage 3a IIIa/IIIb per chart review Macular degeneration Kidney stones Hx of congestive heart failure Paroxysmal atrial fibrillation controlled w/ amiodarone - follows w/ Dr Canela Hx of recurrent urinary tract infection completed abx 07/24/24 Pulmonary edema seen most recently abd/pelvis CT 06/25/24 Elevated brain natriuretic peptide (BNP) level hx of Shortness of breath mild, w/ exertion Chronic heart failure with preserved ejection fraction 05/02/24 ECHO: Grade II DD c/w marked CHF; EF 55-60% Atypical chest pain hx - denies current issues GERD (gastroesophageal reflux disease) Pneumonia hx- no issues since ~2021 per pt Diverticulitis h/o > 2019 Surgical History History of cystoscopy cysto, R ureteral stent 06/25/24: MAC without issue Hx of tubal ligation History of umbilical hernia repair incarcerated - unknown age Hx of hernia repair right inguinal 2013 Hx of cholecystectomy Hx of hysterectomy Family History Mother Stroke Social History Smoking Status: Never smoker Second Hand Exposure: No; Do You Dip or Chew Tobacco: No; Hx Alcohol Use: No Hx Substance Use: No Preferred Language: Portuguese Communication Ability: Effective 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 No acute distress Skin: No noted rashes or bruises Psych: Appropriate mood and affect Neuro: No gross deficits HEENT: NC/AT CV: RRR Resp: Breath sounds clear bilaterally, no increased effort of breathing Abdomen: Soft,mildly tender in RLQ, nondistended Extremities: No edema in lower extremities bilaterally. Results & Data Results & Data Vital Signs (Past 12 Hours) Vital Signs Temp Pulse Resp BP Pulse Ox O2 Del Method 08/10/24 14:22 37.0 C 62 19 138/56 L 96 Room Air Diagnostic Findings KUB X-Ray 08/10/24 15:04 Clinical history: Stent One view of the abdomen was obtained Comparison is made to the CT dated 07/22/2024 Findings: The bowel gas pattern appears unremarkable. A right ureteral stent is again seen. No definite renal or ureteral calculi are seen. Surgical clips traversing the distal with prior cholecystectomy. There is mild lumbar scoliosis and degenerative disc disease Impression: Unchanged right ureteral stent Electronically signed by Sundar Gale 08-10-2024 4:15 PM
[2024-08-10] MEDS ORDERED: SODIUM CHLORIDE 0.9% 1,000 ML IV SCH (20:00)
--- NOTE | 2024-08-10 20:13 | Urology Consultation ---
<Statement entered by Cordell Hutchinson MD - 08/11/24 08:16> 84-year-old female with recent history of ureteral stent placement for obstructing right ureteral stone in the setting of UTI. Tentative plan was for repeat surgery, however this was canceled due to concern for untreated infection. Subsequent urine culture demonstrated multiple organisms. Since her stone had been very small, we discussed the possibility of spontaneous passage with her stent placed. Tentative plan had been to repeat CT scan to evaluate for persistent stone and if it was no longer there, proceed to stent removal. Urine cultures are pending at this point and she is receiving broad-spectrum antibiotics with cefepime. This should provide appropriate coverage for both organisms on her last urine culture. Prior CT scan from 07/22/2024 did not identify any obvious persistent stones, however previously the stone was small and in an area where it may be hard to tell for sure if it was still present. No plan for surgical intervention today. Pending clinical course, may consider ureteroscopy and possible stone removal while she is admitted on broad-spectrum antibiotics. Urology will follow along. Date of Consultation August 10, 2024 Assessment & Plan (1) Acute UTI: Patient has been admitted on the hospitalist service. From urologic perspective we recommend the following: Patient has been placed on broad-spectrum antibiotics in form of cefepime which should continue. Patient may be in need of definitive treatment for her noted kidney stone. Once the patient has been adequately treated with antibiotics, we may consider repeat imaging to see if patient has passed a kidney stone (although she does not recall passing any kidney stones). If the kidney stone remains in place and her urinary tract infection is treated adequately consideration be given to performing procedure for definitive treatment of her stone Additional recommendations with forthcoming based on her clinical course as unfolds History of Present Illness Reason for Consultation: Complicated urinary tract infection Attending Physician: Maryse Iniguez MD History of Present Illness This is an 84-year-old female who is well-known to [facility] for history of urology. On 06/25/2024 the patient underwent a cystoscopy with a right ureteral stent placement secondary to kidney stone. The patient was tentatively scheduled for laser lithotripsy on 08/03/2024 however the patient does not have a urinary tract infection therefore this procedure was canceled. Patient has been treated with oral antibiotics for this urinary tract infection but continues to have ongoing symptomatology. She notes that she does have some slight flank pain on the right-hand side at times and some suprapubic discomfort. She also notes urinary frequency without dysuria or hematuria. The patient has had urine culture sent and she was noted to have a Pseudomonas urinary tract infection as well as a Hafnia urinary tract infection from a culture drawn on 08/03/2024. It was felt that the patient would require intravenous antibiotics and therefore referred for admission to the hospital. Since arrival to the emergency department patient has had labs and imaging which I independent reviewed. KUB showed a right ureteral stent was in good position. Labs include a CBC were white blood cell count was 11.5. Hemoglobin was normal with a hematocrit of 35.4. Platelet count is normal. Chemistry profile showed sodium and potassium in the BUN are normal. Her creatinine is 1.2. Urinalysis showed 3+ leukocyte Estrace and pyuria with greater than 50 white blood cells per high-power field. There is 3+ bacteria on this study but it was negative for nitrites. At the time of my interview she was resting comfortably in bed and she was no distress. Allergies Allergy/AdvReac Type Severity Reaction Status Date / Time Quinolones Allergy Intermediate HIVES Verified 08/10/24 17:00 dabigatran etexilate Allergy Unknown ON Verified 08/10/24 17:00 [facility] LIST metronidazole AdvReac Intermediate GI SYMPTOMS Verified 08/10/24 17:00 sulfamethoxazole AdvReac Mild GI SYMPTOMS Verified 08/10/24 17:00 trimethoprim AdvReac Mild GI SYMPTOMS Verified 08/10/24 17:00 Home Medications Medication Instructions Recorded Confirmed Type aspirin 325 mg tablet 325 mg PO QAM #100 tabs 01/28/19 08/10/24 History levothyroxine 75 mcg capsule 75 mcg PO DAILYBB 03/14/19 08/10/24 History amlodipine 10 mg tablet 10 mg PO QDD #90 tabs 03/21/20 08/10/24 Rx diclofenac sodium 1 % topical gel 2 g topical QID PRN Pain 05/27/21 08/10/24 History cyanocobalamin (vitamin B-12) 1,000 mcg PO Q OTHER DAY 07/18/22 08/10/24 History 1,000 mcg tablet multivitamin with minerals 1 tab PO DAILY 07/18/22 08/10/24 History (Multiple Vitamin-Minerals tablet) calcium 600 mg (as 1 tab PO DAILY 11/27/23 08/10/24 History carbonate)-vitamin D3 10 mcg (400 unit) tablet (Calcium 600 + D(3)) peg 400-propylene glycol 0.4 %-0.3 1 drp ophthalmic (eye) QID 11/27/23 08/10/24 History % eye drops (Systane Ultra) vit C 250 mg-vit E 90 mg-zinc 40 2 tab PO QAM 11/27/23 08/10/24 History mg-copper 1 [id number] capsule (PreserVision AREDS-2) amiodarone 200 mg tablet 200 mg PO QDD #90 tabs 05/11/24 08/10/24 Rx furosemide 40 mg tablet 40 mg PO QAM #90 tabs 06/02/24 08/10/24 Rx metoprolol succinate 50 mg 50 mg PO BID #180 tabs 07/14/24 08/10/24 Rx tablet,extended release 24 hr L.acidop,casei,lactis,rham-B.lact,nicole 2 cap PO QAM 08/10/24 08/10/24 History 625 mg (10 billion cell) capsule (Advanced Probiotic) magnesium oxide 400 mg PO QAM 08/10/24 08/10/24 History potassium gluconate 595 mg (99 mg) 595 mg PO QAM 08/10/24 08/10/24 History tablet Patient History Medical History Pulmonary hypertension RSVP 40-50mmHg per 04/2024 ECHO Heart valve disease 04/2024 ECHO: mild-mod AR, mod MR, mild TR CHIQUITA (generalized anxiety disorder) PVD (peripheral vascular disease) Hyperlipidemia SIADH (syndrome of inappropriate ADH production) usually takes salt tab; has been off since 06/27/24 [facility] admission History of recent hospitalization [facility] 06/25-06/27/24: dx: acute UTI, R ureteric stone (stent placement 06/25/24) acute on chronic CHF, acute hypoxemic resp failure Urinary tract infection Infection of wound hematoma H/O- 2016 HTN (hypertension) On amiodarone therapy Hypothyroidism History of anemia no current issues Hx of pleural effusion (2021) seen most recently on abd/pelvis CT 06/25/24 Chronic kidney disease, stage 3a IIIa/IIIb per chart review Macular degeneration Kidney stones Hx of congestive heart failure Paroxysmal atrial fibrillation controlled w/ amiodarone - follows w/ Dr Canela Hx of recurrent urinary tract infection completed abx 07/24/24 Pulmonary edema seen most recently abd/pelvis CT 06/25/24 Elevated brain natriuretic peptide (BNP) level hx of Shortness of breath mild, w/ exertion Chronic heart failure with preserved ejection fraction 05/02/24 ECHO: Grade II DD c/w marked CHF; EF 55-60% Atypical chest pain hx - denies current issues GERD (gastroesophageal reflux disease) Pneumonia hx- no issues since ~2021 per pt Diverticulitis h/o > 2019 Surgical History History of cystoscopy cysto, R ureteral stent 06/25/24: MAC without issue Hx of tubal ligation History of umbilical hernia repair incarcerated - unknown age Hx of hernia repair right inguinal 2013 Hx of cholecystectomy Hx of hysterectomy Family History Mother Stroke Social History Smoking Status: Never smoker Second Hand Exposure: No; Do You Dip or Chew Tobacco: No; Hx Alcohol Use: No Hx Substance Use: No Preferred Language: Azeri Communication Ability: Effective Apprentice Architect Required: No Beliefs That Will Affect Care: None marital status: Current Living Situation: Alone Current Living Situation Comment: Has an aide who comes over current occupational status: retired How many Children do You have: 3 Feels Safe at Home: Yes Assistive Devices: Denture - Upper, Denture - Lower, Glasses, Hearing Aid - Bilateral, Walker and Wheelchair Review of Systems Review of Systems: All systems reviewed & are unremarkable except as noted in HPI & below Physical Exam Constitutional: + thin; no acute distress Eyes: no conjunctival abnormality ENMT: Ears: no hearing impairment and no external ear abnormality Mouth: no oropharynx abnormality Neck: trachea midline Respiratory: normal respiratory effort; no respiratory distress and no labored breathing Cardiovascular: Rate/Rhythm: regular rate and regular rhythm Gastrointestinal (Abdomen): Abdomen is soft without distention. There is no rebound tenderness or guarding. There is some slight suprapubic discomfort with palpation Musculoskeletal: No calf tenderness Skin: no rashes Neurologic: moves all extremities Psychiatric: A+Ox3, euthymic affect Genitourinary: Slight CVA tenderness with percussion on the right. Not on the left Results & Data Vital Signs (Past 12 Hours) Vital Signs Temp Pulse Resp BP Pulse Ox O2 Del Method 08/10/24 18:09 64 18 133/69 95 08/10/24 17:09 61 20 95 08/10/24 16:24 59 L 14 133/69 95 08/10/24 16:24 60 08/10/24 14:22 37.0 C 62 19 138/56 L 96 Room Air PG Care Time/CCT Total # of Minutes Spent Total Time Spent with Patient: Total time spent is greater than 50% in coordination of care (as documented) at patient's floor/unit and/or counseling patient: Coding Level of Care Code 33584 INT INP/OBS CARE 3/75MIN Diagnoses Acute UTI N39.0
[2024-08-10] MEDS: ARTIFICIAL TEARS OP SCH (22:08)
[2024-08-10] MEDS: HEPARIN SOD 5,000 UNIT/0.5 ML VIAL SQ SCH (22:08)
[2024-08-10] MEDS: METOPROLOL SUCC 50MG EXT REL TAB PO SCH (22:09)
[2024-08-11] MEDS: CEFEPIME 1000MG 1,000 MG/10 ML SYR IV SCH (05:39)
[2024-08-11] MEDS: LEVOTHYROXINE SODIUM 75 MCG TABLET PO SCH (05:40)
[2024-08-11] MEDS: ASPIRIN 325 MG ECTAB PO SCH (08:24)
[2024-08-11] MEDS: MAGNESIUM OXIDE 400 MG TAB PO SCH (08:25)
[2024-08-11] MEDS: FUROSEMIDE 40 MG TAB PO SCH (08:25)
[2024-08-11] MEDS: CEROVITE ADV FORMULA TAB PO SCH (08:25)
[2024-08-11] MEDS: CALCIUM 600MG + VIT D 400 IU TAB PO SCH (08:25)
[2024-08-11] MEDS: ADVANCED PROBIOTIC 625 MG CAPSULE PO SCH (08:25)
[2024-08-11] MEDS: CYANOCOBALAMIN (B-12) 500 MCG TABLET PO SCH (08:25)
--- NOTE | 2024-08-11 08:41 | Hospitalist Progress Note ---
<Statement entered by Zev King DO - 08/11/24 15:20> I have seen and examined the patient and have discussed the case with the advance practice provider. I have reviewed the advanced practitioner's documentation, and I agree with, and take responsibility for that plan of care. Patient sitting in chair. Denies any specific complaints. Eager to get this infection taken care of, understands need for IV antibiotics. Reviewed urology recommendation: Continue antibiotics, consider ureteroscopic and stone removal after a couple days of antibiotics if warranted. I spent a total of 10 minutes coordinating, documenting, and providing care for this patient excluding time spent by another provider/QHP. Date of Service August 11, 2024 Assessment & Plan (1) Acute UTI: (2) Renal colic: Plan Pt is an 84 y/o female with PMHx significant for PAF, chronic HFpEF, LBBB, moderate to severe MR, moderate AI, CKD3, hypothyroidism, SIADH, GERD who was sent in by her Urologist for IV treatment of her UTI. Complicated Urinary Tract Nephrolithiasis hx of Right nephroureteral stent Prior CT scan from 07/22/24 did not identify any obvious persistent stones,prior the stone was small and in a harder space to evaluate UA 08/03/24; Urine cx grew pseudomonas resistant to po fluoroquinolones as well as Hafnia alvei IV Cefepime started; continue broad spectrum for now repeat urine cx drawn; pending No PVR today Tylenol PRN for pain ok for diet today; will communicate with Uro regarding if NPO needed Urology saw patient; appreciate insight. For now, pending her clinical course, Uro may consider ureteroscopy and possible stone removal while she is admitted Chronic Kidney Disease Cr baseline of 1.1 to 1.2 Avoid nephrotoxic meds as able Continue to monitor Hx of atrial fibrillation Continue home amiodarone and metoprolol Not currently on anticoagulation due to falls and prior Hx of GI bleeding Hypothyroidism: Chronic Takes levothyroxine;continue Disposition: PCP: Dr. Lizarraga DVT prophylaxis: Heprain SQ Code Status: DNR/DNI I spent a total of 48 minutes coordinating, documenting, and providing care for this patient excluding time spent inthe performance of separately billed services or time spent by another provider/QHP. Admission and Anticipated Discharge Date Admission Date: August 10, 2024 Subjective Pt sitting in her bedside chair during my visit with her in no apparent distress other than saying she had to go to the bathroom. Urology saw patient this AM; see below for outlined details. Outside of reporting polyuria, no other urinary symptoms or pain at this time. She was unable to recall the details from the Urology visit. Review of Systems Review of Systems: Neuro: (-) Falls, trauma, slurred speech HEENT: (-) NINA, dizziness, dysphagia, visual or auditory changes CV: (-) CP, palpitations, swelling Resp: (-) SOB GI: (-) appetite changes, N/V/D, bowel changes : (-) urinary changes; (+) frequent urination Skin: (-) rashes Psych: (-) anxiety, depression Physical Exam Physical Exam: Neuro: AAOx4, PERRLA, no aphagia, memory changes, CNII-XII grossly intact HEENT: head normocephalic, moist mucus membranes CV: S1/S2, (-) M/G/R, (-) edema, cap refill < 3 seconds Resp: Lungs CTA in all ludwig. On RA GI: Abdomen S/NT. Some distention, Ax4 bowel sounds, (-) CVA tenderness Musculoskeletal: 5/5 B/L UE strength, 5/5 B/L LE strength. Skin: (-) rashes , (-) erythema. Psych: euthymic mood Results & Data Results & Data Vital Signs (Past 12 Hours) Vital Signs Temp Pulse Pulse Resp BP Pulse Ox O2 Del Method 08/11/24 08:03 36.6 C 59 L 20 146/65 H 97 Room Air 08/11/24 07:22 53 L 08/11/24 02:43 36.7 C 58 L 12 126/55 L 94 Room Air 08/10/24 23:26 60 08/10/24 21:44 36.6 C 61 18 163/58 H 95 Room Air Laboratory Results Short CBC 08/10/24 08/11/24 Range/Units 14:35 09:32 WBC 11.54 H 9.29 (4.8-10.8) K/ul Hgb 12.0 12.4 (12.0-16.0) g/dl Hct 35.4 L 37.7 (37.0-47.0) % Plt Count 256 277 (130-400) K/uL BMP 08/10/24 08/11/24 14:35 09:32 Sodium 137 138 Potassium 4.1 4.1 Chloride 101 102 Carbon Dioxide 30 31 BUN 18 18 Creatinine 1.21 H 1.18 Glucose 103 H 99 Calcium 9.8 10.4 H Liver Function 08/10/24 Range/Units 14:35 Total Bilirubin 0.3 (0.2-1.0) mg/dl AST 20 (13-39) U/L ALT 11 (7-52) U/L Alkaline Phosphatase 99 (34-104) U/L Albumin 4.3 (3.4-5.0) gm/dl Urine 08/10/24 Range/Units 14:40 Urine Color Yellow Urine Appearance Turbid A (Clear) Urine pH 7.0 (4.5-7.5) Ur Specific [place] 1.014 (1.000-1.030) Urine Protein 1+ H (Negative) Urine Glucose (UA) Negative (Negative)
[2024-08-11] MEDS ORDERED: NON-FORMULARY MEDICATION (Vit C,E-Zn-Coppr-Lutein-Zeaxan [Preservision Areds-2] 250-90-40- PO SCH (09:00)
[2024-08-11 09:48] LABS: Hematocrit (blood only) 37.7 % (37.0-47.0); Hemoglobin 12.4 g/dl (12.0-16.0); Mean Corpuscular Hemoglobin 31.2 pg (25.0-34.0); Mean Corpuscular Hgb Conc 32.9 g/dL (32.0-36.0); Mean Platelet Volume 10.4 fL (9.4-12.4); Platelet Count 277 K/uL (130-400); RDW Coefficient of Variation 14.3 % (11.5-14.5); RDW Standard Deviation 49.7 fL (36.4-46.3); Red Blood Count 3.97 M/uL (4.20-5.40); White Blood Count 9.29 K/ul (4.8-10.8)
[2024-08-11 10:05] LABS: BUN Creatinine Ratio 15.3 (10-20); Calcium 10.4 mg/dl (8.6-10.3); Creatinine Clr Calc Pharmacy 26.3 ml/min; Potassium 4.1 mmol/L (3.5-5.1)
--- NOTE | 2024-08-11 10:06 | Urology Progress Note ---
<Statement entered by Cordell Hutchinson MD - 08/11/24 13:38> 84-year-old female with recent ureteral stone and urinary tract infection. Stent appears to be in good position on most recent imaging studies. Would continue broad-spectrum antibiotics for now. She may be a candidate for ureteroscopy and stone removal over the weekend after a couple days of antibiotics. Urology will follow along. Date of Service August 11, 2024 Assessment & Plan (1) Acute UTI: (2) Renal colic: (3) Leukocytosis: Plan S/p right ureteral stent placement on 06/25, she was post to have stone removal on 08/03/2024 although this was canceled due to positive symptomatic UTI Labs reviewed-WBCs 9.29, creatinine 1.21, hemoglobin 12.4 Hemodynamically stable Urine culture pending Blood cultures not completed continue broad-spectrum antibiotics and trend towards culture data Other medical management and care per primary team No urological surgical intervention today Patient may have a diet Urology will arrange definitive stone treatment when patient is optimized Urology will follow Admission and Anticipated Discharge Date Admission Date: August 10, 2024 Subjective Resting comfortably in her chair Denies fevers, chills, nausea, vomiting Voiding spontaneously-urinary frequency, denies dysuria or gross hematuria No abdominal or flank pain currently Visually upset about being back in the hospital Review of Systems Constitutional: as per Subjective / HPI Genitourinary: as per Subjective / HPI Physical Exam Constitutional: well developed and well nourished; no acute distress Respiratory: normal respiratory effort and able to speak in complete sentences Musculoskeletal: Extremities: extremities normal to inspection Psychiatric: Orientation: alert and oriented x 3 Results & Data Vital Signs (Past 12 Hours) Vital Signs Temp Pulse Pulse Resp BP Pulse Ox O2 Del Method 08/11/24 08:20 62 08/11/24 08:03 36.6 C 59 L 20 146/65 H 97 Room Air 08/11/24 07:22 53 L 08/11/24 02:43 36.7 C 58 L 12 126/55 L 94 Room Air 08/10/24 23:26 60 PG Care Time/CCT Total # of Minutes Spent Total Time Spent with Patient: Total time spent is greater than 50% in coordination of care (as documented) at patient's floor/unit and/or counseling patient: Coding Level of Care Code 64171 SUB INP/OBS CARE MIN Diagnoses Acute UTI N39.0 Renal colic N23 Leukocytosis D72.829 Leukocytosis type: unspecified (3) Leukocytosis Leukocytosis type: unspecified Qualified Code(s): D72.829 - Elevated white blood cell count, unspecified
[2024-08-11] MEDS: ACETAMINOPHEN 325 MG TAB PO PRN (14:48)
[2024-08-11] MEDS: amLODIPine BESYLATE 5 MG TAB PO SCH (16:27)
[2024-08-11] MEDS: AMIODARONE 200 MG TAB PO SCH (16:27)
[2024-08-12 07:20] LABS: BUN Creatinine Ratio 24.8 (10-20); Calcium 9.7 mg/dl (8.6-10.3); Creatinine Clr Calc Pharmacy 26.5 ml/min; Potassium 4.2 mmol/L (3.5-5.1)
[2024-08-12 07:35] LABS: Hematocrit (blood only) 33.4 % (37.0-47.0); Hemoglobin 10.7 g/dl (12.0-16.0); Mean Corpuscular Hemoglobin 30.5 pg (25.0-34.0); Mean Corpuscular Volume 95.2 fL (80.0-100.0); Mean Platelet Volume 10.8 fL (9.4-12.4); Platelet Count 202 K/uL (130-400); RDW Coefficient of Variation 14.5 % (11.5-14.5); RDW Standard Deviation 50.4 fL (36.4-46.3); Red Blood Count 3.51 M/uL (4.20-5.40); White Blood Count 9.27 K/ul (4.8-10.8)
--- NOTE | 2024-08-12 08:08 | Hospitalist Progress Note ---
<Statement entered by Zev King, DO - 08/12/24 15:39> I have seen and examined the patient and have discussed the case with the advance practice provider. I have reviewed the advanced practitioner's documentation, and I agree with, and take responsibility for that plan of care. Patient sitting in chair, states she definitely feels improved. And desires to have definitive intervention this hospitalization. I reviewed sensitivities, continue current antibiotic Intervention as coordinated by urology Discussed plan of care as outlined below I spent a total of 12 minutes coordinating, documenting, and providing care for this patient excluding time spent by another provider/QHP. Date of Service August 12, 2024 Assessment & Plan (1) Acute UTI: (2) Renal colic: Plan Pt is an 84 y/o female with PMHx significant for PAF, chronic HFpEF, LBBB, moderate to severe MR, moderate AI, CKD3, hypothyroidism, SIADH, GERD who was sent in by her Urologist for IV treatment of her UTI. Complicated Urinary Tract Nephrolithiasis hx of Right nephroureteral stent Prior CT scan from 07/22/24 did not identify any obvious persistent stones,prior the stone was small and in a harder space to evaluate UA 08/03/24; Urine cx grew pseudomonas resistant to po fluoroquinolones as well as Hafnia alvei IV Cefepime started; C/S show both organisms are sensitive to Cefepime; continue repeat urine cx drawn; pending Tylenol PRN for pain NPO after MN Urology plans for ureteroscopy with lithotripsy on 08/13 Chronic Kidney Disease Cr baseline of 1.1 to 1.2 Avoid nephrotoxic meds as able Continue to monitor Hx of atrial fibrillation Continue home amiodarone and metoprolol Not currently on anticoagulation due to falls and prior Hx of GI bleeding Hypothyroidism: Chronic Takes levothyroxine;continue Disposition: PCP: Dr. Lizarraga DVT prophylaxis: Heprain SQ Code Status: DNR/DNI I spent a total of 48 minutes coordinating, documenting, and providing care for this patient excluding time spent inthe performance of separately billed services or time spent by another provider/QHP. Admission and Anticipated Discharge Date Admission Date: August 10, 2024 Subjective Pt sitting in her bedside chair in no apparent distress. She seems to have more energy today. Denies chest pain, dizziness, SOB, N/V/D. Plans for pt to go to the OR on 08/13. I called pt daughter Bibi at [phone] to update her and answer questions. See A/P for further details. Review of Systems Review of Systems: Neuro: (-) Falls, trauma, slurred speech HEENT: (-) NINA, dizziness, dysphagia, visual or auditory changes CV: (-) CP, palpitations, swelling Resp: (-) SOB GI: (-) appetite changes, N/V/D, bowel changes : (-) urinary changes; (+) frequent urination Skin: (-) rashes Psych: (-) anxiety, depression Physical Exam Physical Exam: Neuro: AAOx4, PERRLA, no aphagia, memory changes, CNII-XII grossly intact HEENT: head normocephalic, moist mucus membranes CV: S1/S2, (-) M/G/R, (-) edema, cap refill < 3 seconds Resp: Lungs CTA in all ludwig. On RA GI: Abdomen S/NT. Some distention, Ax4 bowel sounds, (-) CVA tenderness Musculoskeletal: 5/5 B/L UE strength, 5/5 B/L LE strength. Skin: (-) rashes , (-) erythema. Psych: euthymic mood Results & Data Results & Data Vital Signs (Past 12 Hours) Vital Signs Temp Pulse Pulse Resp BP Pulse Ox O2 Del Method 08/12/24 07:11 50 L 08/12/24 03:35 36.6 C 50 L 16 122/66 95 Room Air 08/11/24 23:00 57 L 08/11/24 22:59 36.7 C 56 L 16 115/62 96 Room Air Laboratory Results Short CBC 08/12/24 Range/Units 06:22 WBC 9.27 (4.8-10.8) K/ul Hgb 10.7 L (12.0-16.0) g/dl Hct 33.4 L (37.0-47.0) % Plt Count 202 (130-400) K/uL BMP 08/12/24 06:22 Sodium 139 Potassium 4.2 Chloride 103 Carbon Dioxide 32 BUN 29 H Creatinine 1.17 Glucose 100 H Calcium 9.7
--- NOTE | 2024-08-12 10:41 | Urology Progress Note ---
Date of Service August 12, 2024 Assessment & Plan (1) Acute UTI: (2) Right ureteral stone: Plan 84-year-old female with right ureteral stone and stent in place. Recently was planned for ureteroscopy but canceled due to acute UTI. She has now been on IV antibiotics for a couple days, is not having any signs or symptoms of active infection. We will tentatively plan on cystoscopy, right ureteroscopy with laser lithotripsy and stone removal, stent exchange on 08/13/2024. Reviewed risks and benefits of surgery. She expressed understanding and would like to proceed. Urology will make her n.p.o. at midnight. Admission and Anticipated Discharge Date Admission Date: August 10, 2024 Subjective 84-year-old female with right ureteral stone, right ureteral stent in place Remains on broad-spectrum antibiotics with cefepime Labs reviewed: WBC 9.27, creatinine 1.17 She is not having any fevers or chills and denies dysuria Physical Exam Physical Exam: Frail-appearing, NAD Seated at the bedside Breathing comfortably on room air Results & Data Vital Signs (Past 12 Hours) Vital Signs Temp Pulse Pulse Resp BP Pulse Ox O2 Del Method 08/12/24 08:47 36.4 C L 57 L 20 131/63 96 Room Air 08/12/24 08:15 Room Air 08/12/24 07:11 50 L 08/12/24 03:35 36.6 C 50 L 16 122/66 95 Room Air 08/11/24 23:00 57 L 08/11/24 22:59 36.7 C 56 L 16 115/62 96 Room Air PG Care Time/CCT Total # of Minutes Spent Total Time Spent with Patient: Total time spent is greater than 50% in coordination of care (as documented) at patient's floor/unit and/or counseling patient: Coding Level of Care Code 22149 SUB INP/OBS CARE 06/03MIN Diagnoses Acute UTI N39.0 Right ureteral stone N20.1
[2024-08-12] MEDS: SIMETHICONE 80 MG CHEW PO ONE (22:51)
[2024-08-13 06:45] LABS: Hematocrit (blood only) 35.1 % (37.0-47.0); Hemoglobin 11.5 g/dl (12.0-16.0); Mean Corpuscular Hemoglobin 31.2 pg (25.0-34.0); Mean Corpuscular Hgb Conc 32.8 g/dL (32.0-36.0); Mean Corpuscular Volume 95.1 fL (80.0-100.0); Mean Platelet Volume 10.7 fL (9.4-12.4); Platelet Count 216 K/uL (130-400); RDW Coefficient of Variation 14.3 % (11.5-14.5); RDW Standard Deviation 50.3 fL (36.4-46.3); Red Blood Count 3.69 M/uL (4.20-5.40); White Blood Count 9.11 K/ul (4.8-10.8)
[2024-08-13 07:05] LABS: BUN Creatinine Ratio 27.7 (10-20); Calcium 10.2 mg/dl (8.6-10.3); Creatinine Clr Calc Pharmacy 27.7 ml/min; Potassium 4.1 mmol/L (3.5-5.1)
--- NOTE | 2024-08-13 07:17 | Hospitalist Progress Note ---
<Statement entered by Zev King DO - 08/13/24 15:41> I have seen and examined the patient and have discussed the case with the advance practice provider. I have reviewed the advanced practitioner's documentation, and I agree with, and take responsibility for that plan of care. Patient seen prior to going to OR. Anticipating procedure. Denies any pain or shortness of breath. Reviewed sensitivities, anticipate 5-day course of cefepime Further plan of care as outlined below I spent a total of 10 minutes coordinating, documenting, and providing care for this patient excluding time spent by another provider/QHP. Date of Service August 13, 2024 Assessment & Plan (1) Acute UTI: (2) Renal colic: Plan Pt is an 84 y/o female with PMHx significant for PAF, chronic HFpEF, LBBB, moderate to severe MR, moderate AI, CKD3, hypothyroidism, SIADH, GERD who was sent in by her Urologist for IV treatment of her UTI. Complicated Urinary Tract Nephrolithiasis hx of Right nephroureteral stent Prior CT scan from 07/22/24 did not identify any obvious persistent stones,prior the stone was small and in a harder space to evaluate UA 08/03/24; Urine cx grew pseudomonas resistant to po fluoroquinolones as well as Hafnia alvei; based on C/S; will require inpt for 5 days with continued Cefepime due to resitance. Hafnia can be covered orally with Cipro or Ceftin. IV Cefepime started; C/S sensitive to Cefepime; continue- currently on day 2 of IV abx as of 08/13. repeat urine cx drawn; pending Tylenol PRN for pain NPO for procedure today Urology performed ureteroscopy today for stent exchange; no lithotripsy; suspect spontaneous passing of stone. Chronic Kidney Disease Cr baseline of 1.1 to 1.2; serum creatinine 1.12 Avoid nephrotoxic meds as able Continue to monitor Hx of atrial fibrillation Continue home amiodarone and metoprolol Not currently on anticoagulation due to falls and prior Hx of GI bleeding Hypothyroidism: Chronic Takes levothyroxine;continue Disposition: PCP: Dr. Lizarraga DVT prophylaxis: Heprain SQ Code Status: DNR/DNI I spent a total of 48 minutes coordinating, documenting, and providing care for this patient excluding time spent inthe performance of separately billed services or time spent by another provider/QHP. Admission and Anticipated Discharge Date Admission Date: August 10, 2024 Subjective I saw the patient sitting in her bedside chair in no apparent distress. She is feeling anxious about her upcoming surgery today. Pt denies NINA, dizziness, SOB, chest pain, N/V/D. RCRI Score: 0; 3.9% risk of major cardiac event. Pt underwent cysto without lithotripsy without complications. Advancing diet. See A/P for further details. Review of Systems Review of Systems: Neuro: (-) Falls, trauma, slurred speech HEENT: (-) NINA, dizziness, dysphagia, visual or auditory changes CV: (-) CP, palpitations, swelling Resp: (-) SOB GI: (-) appetite changes, N/V/D, bowel changes : (-) urinary changes; (+) frequent urination Skin: (-) rashes Psych: (-) anxiety, depression Physical Exam Physical Exam: Neuro: AAOx4, PERRLA, no aphagia, memory changes, CNII-XII grossly intact HEENT: head normocephalic, moist mucus membranes CV: S1/S2, (-) M/G/R, (-) edema, cap refill < 3 seconds Resp: Lungs CTA in all ludwig. On RA GI: Abdomen S/NT. Some distention, Ax4 bowel sounds, (-) CVA tenderness Musculoskeletal: 5/5 B/L UE strength, 5/5 B/L LE strength. Skin: (-) rashes , (-) erythema. Psych: euthymic mood Results & Data Results & Data Vital Signs (Past 12 Hours) Vital Signs Temp Pulse Pulse Resp BP Pulse Ox O2 Del Method 08/13/24 03:07 36.7 C 55 L 16 124/62 93 Room Air 08/12/24 22:35 36.8 C 61 18 132/57 L 94 Room Air 08/12/24 22:00 60 08/12/24 20:00 Room Air 08/12/24 19:31 36.7 C 63 18 113/62 94 Room Air Laboratory Results Short CBC 08/13/24 Range/Units 06:09 WBC 9.11 (4.8-10.8) K/ul Hgb 11.5 L (12.0-16.0) g/dl Hct 35.1 L (37.0-47.0) % Plt Count 216 (130-400) K/uL BMP 08/13/24 06:09 Sodium 138 Potassium 4.1 Chloride 101 Carbon Dioxide 31 BUN 31 H Creatinine 1.12 Glucose 106 H Calcium 10.2
[2024-08-13] MEDS ORDERED: DEXAMETHASONE SOD INJ 4 MG/ML VIAL ONE (08:48)
[2024-08-13] MEDS ORDERED: PROPOFOL IV EMULSION 10 MG/ML 20 ML VIAL IV ONE (08:48)
[2024-08-13] MEDS ORDERED: MIDAZOLAM HCL 1 MG/ML 2ML VIAL ONE (08:48)
[2024-08-13] MEDS ORDERED: ONDANSETRON INJ 2 MG/ML 2 ML VIAL ONE (08:48)
[2024-08-13] MEDS ORDERED: fentaNYL citrate PF 100 MCG/2 ML VIAL ONE (08:48)
--- NOTE | 2024-08-13 08:59 | Urology Progress Note ---
Date of Service August 13, 2024 Assessment & Plan (1) Hydronephrosis: (2) Right ureteral stone: Plan 84-year-old female with right ureteral stone. Ureteroscopy was recently canceled due to infection. She has now been on antibiotics to cover UTI. We reviewed the plan for cystoscopy, right retrograde pyelogram, right ureteroscopy with laser lithotripsy and stone removal, right ureteral stent exchange. We reviewed risks and benefits and she expressed understanding and would like to proceed. Admission and Anticipated Discharge Date Admission Date: August 10, 2024 Subjective Feeling well this morning Denies any fevers or chills, not having any dysuria Remains on broad-spectrum antibiotics. Physical Exam Physical Exam: Frail-appearing, NAD Results & Data Vital Signs (Past 12 Hours) Vital Signs Temp Pulse Pulse Resp BP Pulse Ox O2 Del Method 08/13/24 08:19 36.5 C 57 L 16 138/70 98 Room Air 08/13/24 03:07 36.7 C 55 L 16 124/62 93 Room Air 08/12/24 22:35 36.8 C 61 18 132/57 L 94 Room Air 08/12/24 22:00 60 PG Care Time/CCT Total # of Minutes Spent Total Time Spent with Patient: Total time spent is greater than 50% in coordination of care (as documented) at patient's floor/unit and/or counseling patient: Coding Level of Care Code 06823 SUB INP/OBS CARE 06/03MIN Diagnoses Hydronephrosis N13.2 Hydronephrosis type: with ureteral calculous obstruction Right ureteral stone N20.1 (1) Hydronephrosis Hydronephrosis type: with ureteral calculous obstruction Qualified Code(s): N13.2 - Hydronephrosis with renal and ureteral calculous obstruction
[2024-08-13] MEDS ORDERED: ATROPINE SULFATE 0.1 MG/ML 10ML SYR IV PRN (09:05)
[2024-08-13] MEDS ORDERED: fentaNYL citrate PF 100 MCG/2 ML VIAL IV PRN (09:05)
[2024-08-13] MEDS ORDERED: ONDANSETRON INJ 2 MG/ML 2 ML VIAL IV PRN (09:05)
[2024-08-13] MEDS ORDERED: ePHEDrine sulfate 50 MG/ML AMP IV PRN (09:05)
--- NOTE | 2024-08-13 09:05 | Anesthesiology Consultation ---
Date of Service August 13, 2024 Assessment & Plan ASA ASA3 Proposed Anesthesia Anesthesia Type: General Risk / Benefits Reviewed With: PT / POA / Parent / Guardian, Accepts Plan and Informed Consent Obtained History Surgery Operation Date: 08/13/24 10:30 Proposed Procedures p Cystoscopy, Ureteronephroscopy, Possible Laser- Right(Right) - Cordell Hutchinson MD Height/Weight Height: 5 ft 4 in Weight: 48.7 kg Allergies Allergy/AdvReac Type Severity Reaction Status Date / Time Quinolones Allergy Intermediate HIVES Verified 08/10/24 17:00 dabigatran etexilate Allergy Unknown ON Verified 08/10/24 17:00 PLx [facility] metronidazole AdvReac Intermediate GI SYMPTOMS Verified 08/10/24 17:00 sulfamethoxazole AdvReac Mild GI SYMPTOMS Verified 08/10/24 17:00 trimethoprim AdvReac Mild GI SYMPTOMS Verified 08/10/24 17:00 Medications Home Medications Medication Instructions Recorded Confirmed Last Taken aspirin 325 mg tablet 325 mg PO QAM #100 tabs 01/28/19 08/10/24 07/28/24 levothyroxine 75 mcg capsule 75 mcg PO DAILYBB 03/14/19 08/10/24 08/03/24 06:00 amlodipine 10 mg tablet 10 mg PO QDD #90 tabs 03/21/20 08/10/24 08/02/24 09:00 diclofenac sodium 1 % topical gel 2 g topical QID PRN Pain 05/27/21 08/10/24 08/02/24 cyanocobalamin (vitamin B-12) 1,000 mcg PO Q OTHER DAY 07/18/22 08/10/24 07/20/24 1,000 mcg tablet multivitamin with minerals 1 tab PO DAILY 07/18/22 08/10/24 07/20/24 (Multiple Vitamin-Minerals tablet) calcium 600 mg (as 1 tab PO DAILY 11/27/23 08/10/24 07/20/24 carbonate)-vitamin D3 10 mcg (400 unit) tablet (Calcium 600 + D(3)) peg 400-propylene glycol 0.4 %-0.3 1 drp ophthalmic (eye) QID 11/27/23 08/10/24 01/28/24 % eye drops (Systane Ultra) vit C 250 mg-vit E 90 mg-zinc 40 2 tab PO QAM 11/27/23 08/10/24 08/02/24 17:30 mg-copper 1 rg-bhteqk-hglcal capsule (PreserVision AREDS-2) amiodarone 200 mg tablet 200 mg PO QDD #90 tabs 05/11/24 08/10/24 08/02/24 17:30 furosemide 40 mg tablet 40 mg PO QAM #90 tabs 06/02/24 08/10/24 08/02/24 09:30 metoprolol succinate 50 mg 50 mg PO BID #180 tabs 07/14/24 08/10/24 08/02/24 17:30 tablet,extended release 24 hr L.acidop,casei,lactis,rham-B.lact,nicole 2 cap PO QAM 08/10/24 08/10/24 Unknown 625 mg (10 billion cell) capsule (Advanced Probiotic) magnesium oxide 400 mg PO QAM 08/10/24 08/10/24 Unknown potassium gluconate 595 mg (99 mg) 595 mg PO QAM 08/10/24 08/10/24 Unknown tablet Active Medications Generic Name Dose Route Start Last Admin Trade Name Freq PRN Reason Stop Dose Admin Acetaminophen 650 mg 08/11/24 09:14 08/11/24 14:48 Acetaminophen 325 Mg Tab PO 09/10/24 09:13 650 mg Q4H PRN Administration Pain Amiodarone HCl 200 mg 08/11/24 16:30 08/12/24 16:43 Amiodarone 200 Mg Tab PO 09/10/24 16:29 200 mg QDD LINETTE Administration Amlodipine Besylate 10 mg 08/11/24 16:30 08/12/24 16:42 Amlodipine Besylate 5 Mg Tab PO 09/10/24 16:29 10 mg QDD LINETTE Administration Artificial Tears 1 drops 08/10/24 21:00 08/12/24 20:35 Artificial Tears OP 09/09/24 20:59 1 drops QID LINETTE Administration Aspirin 325 mg 08/11/24 09:00 08/12/24 10:05 Aspirin 325 Mg Ectab PO 09/10/24 08:59 325 mg QAM LINETTE Administration Calcium/Vitamin D 1 tab 08/11/24 09:00 08/12/24 10:06 Calcium 600mg + Vit D 400 Iu Tab PO 09/10/24 08:59 1 tab DAILY LINETTE Administration Cyanocobalamin 1,000 mcg 08/11/24 09:00 08/11/24 08:25 Cyanocobalamin (B-12) 500 Mcg Tablet PO 09/10/24 08:59 1,000 mcg Q2D LINETTE Administration Furosemide 40 mg 08/11/24 09:00 08/12/24 10:04 Furosemide 40 Mg Tab PO 09/10/24 08:59 40 mg QAM LINETTE Administration Heparin Sodium (Porcine) 5,000 units 08/10/24 22:00 08/13/24 04:39 Heparin Sod 5,000 Unit/0.5 Ml Vial SQ 09/09/24 21:59 Not Given Q8 LINETTE Cefepime HCl 1,000 mg in 10 mls @ 5 mls/min 08/11/24 04:00 08/13/24 04:33 Maxipime 2000mg IV 08/21/24 03:59 5 mls/min Q12H LINETTE Administration Protocol Lactobacillus Acidophilus 1,250 mg 08/11/24 09:00 08/12/24 10:04 Advanced Probiotic 625 Mg Capsule PO 09/10/24 08:59 1,250 mg QAM LINETTE Administration Levothyroxine Sodium 75 mcg 08/11/24 06:30 08/13/24 04:38 Levothyroxine Sodium 75 Mcg Tablet PO 09/10/24 06:29 75 mcg DAILYBB LINETTE Administration Magnesium Oxide 400 mg 08/11/24 09:00 08/12/24 10:04 Magnesium Oxide 400 Mg Tab PO 09/10/24 08:59 400 mg QAM LINETTE Administration Metoprolol Succinate 50 mg 08/10/24 21:00 08/12/24 20:35 Metoprolol Succ 50mg Ext Rel Tab PO 09/09/24 20:59 50 mg BID LINETTE Administration Multivitamins/Minerals 1 tab 08/11/24 09:00 08/12/24 10:04 Cerovite Adv Formula Tab PO 09/10/24 08:59 1 tab DAILY LINETTE Administration NPO Date Last Intake of Fluids: 08/12/24 Time Last Intake of Fluids: 23:59 Last Intake of Fluids Comment: sip with thyroid pill this am Time Last Intake of Solids: 23:59 Past Medical History Medical History Pulmonary hypertension RSVP 40-50mmHg per 04/2024 ECHO Heart valve disease 04/2024 ECHO: mild-mod AR, mod MR, mild TR CHIQUITA (generalized anxiety disorder) PVD (peripheral vascular disease) Hyperlipidemia SIADH (syndrome of inappropriate ADH production) usually takes salt tab; has been off since 06/27/24 [facility] admission History of recent hospitalization [facility] 06/25-06/27/24: dx: acute UTI, R ureteric stone (stent placement 06/25/24) acute on chronic CHF, acute hypoxemic resp failure Urinary tract infection Infection of wound hematoma H/O- 2016 HTN (hypertension) On amiodarone therapy Hypothyroidism History of anemia no current issues Hx of pleural effusion (2021) seen most recently on abd/pelvis CT 06/25/24 Chronic kidney disease, stage 3a IIIa/IIIb per chart review Macular degeneration Kidney stones Hx of congestive heart failure Paroxysmal atrial fibrillation controlled w/ amiodarone - follows w/ Dr Canela Hx of recurrent urinary tract infection completed abx 07/24/24 Pulmonary edema seen most recently abd/pelvis CT 06/25/24 Elevated brain natriuretic peptide (BNP) level hx of Shortness of breath mild, w/ exertion Chronic heart failure with preserved ejection fraction 05/02/24 ECHO: Grade II DD c/w marked CHF; EF 55-60% Atypical chest pain hx - denies current issues GERD (gastroesophageal reflux disease) Pneumonia hx- no issues since ~2021 per pt Diverticulitis h/o > 2019 Exercise / Class Metabolic Activity II 4-5 Yardwork/Stairs/Walk up hill Past Family History Family History Mother Stroke Past Surgical History Surgical History History of cystoscopy cysto, R ureteral stent 06/25/24: MAC without issue Hx of tubal ligation History of umbilical hernia repair incarcerated - unknown age Hx of hernia repair right inguinal 2013 Hx of cholecystectomy Hx of hysterectomy Past Anesthesia History No Hx of Anesthesia Complications and No Family Hx of Anesthesia Complications History of PONV No Hx of PONV and No Hx of Motion Sickness Social History Smoking Status: Never smoker Do You Dip or Chew Tobacco: No Hx Alcohol Use: No Hx Substance Use: No substance use type: does not use Review of Systems denies fever/cough/ colds/ chest pain/ SOB/ LISA denies LISA Physical Exam Vital Signs Last Vital Signs Temp 36.5 C 08/13/24 08:19 Pulse 57 L 08/13/24 08:19 Resp 16 08/13/24 08:19 BP 138/70 08/13/24 08:19 Pulse Ox 98 08/13/24 08:19 O2 Del Method Room Air 08/13/24 08:19 ENMT Mouth: + dentures; no TMJ abnormality and no dentition abnormality Thyromental Distance: > or= 3.5 Finger Breadths Mallampati Class: II Neck neck extension not limited Respiratory normal respiratory effort; no respiratory distress Auscultation: lungs clear to auscultation bilaterally Cardiovascular Rate/Rhythm: regular rate and regular rhythm Neurologic moves all extremities Psychiatric Orientation: alert and oriented x 3 Testing Laboratory Results 08/13/24 06:09 08/13/24 06:09 Urine Color Yellow 08/10/24 14:40 Urine Appearance Turbid (Clear) A 08/10/24 14:40 Urine pH 7.0 (4.5-7.5) 08/10/24 14:40 Ur Specific [place] 1.014 (1.000-1.030) 08/10/24 14:40 Urine Protein 1+ (Negative) H 08/10/24 14:40 Urine Glucose (UA) Negative (Negative) 08/10/24 14:40 Urine Ketones Negative (Negative) 08/10/24 14:40 Urine Nitrite Negative (Negative) 08/10/24 14:40 Ur Leukocyte Esterase 3+ (Negative) H 08/10/24 14:40 Urine WBC (Auto) >50 /hpf (0-5) H 08/10/24 14:40 Urine RBC (Auto) >20 /hpf (0-2) H 08/10/24 14:40 U Hyaline Cast (Auto) >20 /lpf (0-2) H 08/10/24 14:40 U Epithel Cells (Auto) 3-5 /hpf (0-2) H 08/10/24 14:40 Urine Bacteria (Auto) 3+ (None Seen) H 08/10/24 14:40 08/10/24 14:40 Urine Culture - Final Urine,Clean Catch Pseudomonas aeruginosa Hafnia alvei
[2024-08-13] MEDS ORDERED: ePHEDrine sulfate 50 MG/5 ML SYR ONE (09:27)
[2024-08-13] MEDS ORDERED: PHENYLEPHRINE 100MCG/ML 5ML SYR ONE (09:27)
--- NOTE | 2024-08-13 09:58 | Operative Report ---
PG Post Operative Report Pre & Post Diagnosis Operation Date: 08/13/24 10:30 Pre-Op Diagnosis: (1) Hydronephrosis (2) Right ureteral stone Post-Op Diagnosis: (1) Hydronephrosis (2) No Stone Seen I identified the patient and participated in the time-out.: Yes Procedure Operation Date: 08/13/24 10:30 Actual Procedures p Cystoscopy, Ureteronephroscopy and Exchange of Right Ureteral Stent (Right) - Cordell Hutchinson MD Surgeon Cordell Hutchinson MD Gauntlet Pairer None Estimated Blood Loss 0 Findings See Below No stone identified in the ureter or kidney on ureteroscopy. I suspect she passed the stone spontaneously. Specimens None Drains 6 Turkish x 24 cm double-J ureteral stent in the right ureter (strings attached to facilitate removal), 16 Turkish Cramer catheter per urethra Anesthesia Type General Complications none Disposition Accompanied Patient To Recovery: Yes Disposition: Recovery Room Indications This is an 84-year-old female followed by urology for nephrolithiasis. She recently underwent ureteral stent placement for an obstructing stone and UTI. Plan was for second look ureteroscopy to confirm stone was about, however surgery was initially canceled due to active UTI. She has not been on broad- spectrum antibiotics, specific to her culture results. She returns to the OR for second look procedure. Description of Procedure The patient was identified in the holding area and informed consent was confirmed. She was marked on the right side, then was taken to the operating room where general anesthesia was initiated. She was placed in the dorsal lithotomy position with all pressure points appropriately padded. She was prepped and draped in the usual sterile fashion and a preoperative timeout was performed. A well-lubricated cystoscope was inserted per urethra and panendoscopy was performed. The urethra was normal with no strictures or mucosal abnormalities. Her bladder appeared grossly normal with no tumors or stones appreciated. Ureteral orifices were in orthotopic position bilaterally The end of the ureteral stent was visible from the right ureteral orifice. A pair of stent graspers was used to withdraw the stent to the urethral meatus. The stent was then cannulated using a 0.038 inch zip wire which advanced easily up to the kidney under fluoroscopic guidance. A second wire was advanced alongside this. Over the second wire, a flexible ureteroscope was advanced and used to survey the ureter and kidney. No stones were seen in either location. There was some irritated tissue from the stent and some debris. Once satisfied that there were no stones present, exit ureteroscopy was performed. There was some irritation but no significant mucosal trauma. Again, no stones were seen. The cystoscope was reinserted over the wire, then a 6 Turkish x 24 centimeter double-J ureteral stent was advanced. When the wire was removed, the proximal curl was visualized in the kidney with x-ray, and the distal curl visualized in the bladder with the cystoscope. Strings were left attached to the stent to facilitate removal. A 16 Turkish Cramer catheter was placed per urethra to allow maximal drainage of the bladder. Balloon was inflated with 10 mL of normal saline. Catheter was attached to gravity drainage. Strings from her stent were secured to her right thigh using benzoin and Tegaderm. The patient was then awakened from anesthesia and was brought to the PACU in stable condition. I attest to the content of the Intraoperative Record and any orders documented therein. Any exceptions are noted below.
--- NOTE | 2024-08-13 11:03 | Anesthesiology Progress Note ---
Date of Service August 13, 2024 Anesthesia Post Procedure Vital Signs Vital Signs: Temp Pulse Pulse Pulse Resp BP Pulse Ox 08/13/24 10:25 55 L 20 140/63 96 08/13/24 10:15 54 L 22 141/52 H 97 08/13/24 10:05 56 L 15 148/61 H 100 08/13/24 09:59 36.2 C L 57 L 21 149/59 H 100 08/13/24 08:19 36.5 C 57 L 16 138/70 98 08/13/24 03:07 36.7 C 55 L 16 124/62 93 08/12/24 22:35 36.8 C 61 18 132/57 L 94 08/12/24 22:00 60 08/12/24 20:00 08/12/24 19:31 36.7 C 63 18 113/62 94 08/12/24 15:44 37.0 C 58 L 20 123/68 96 08/12/24 15:24 66 08/12/24 11:20 36.4 C L 58 L 20 144/80 H 97 O2 Del Method O2 Flow Rate 08/13/24 10:25 Room Air 08/13/24 10:15 Room Air 08/13/24 10:05 Oxymask 4 08/13/24 09:59 Oxymask 8 08/13/24 08:19 Room Air 08/13/24 03:07 Room Air 08/12/24 22:35 Room Air 08/12/24 22:00 08/12/24 20:00 Room Air 08/12/24 19:31 Room Air 08/12/24 15:44 Room Air 08/12/24 15:24 08/12/24 11:20 Room Air Pain Intensity Right Lower Abdomen: Pain Intensity: 5 Transfer of Care Handoff Completed per policy Notes Mental Status: alert / awake / arousable and participated in evaluation Patient Amnestic to Procedure: Yes Nausea / Vomiting: adequately controlled Pain: adequately controlled Airway Patency, RR, SpO2: stable & adequate BP & HR: stable & adequate Hydration State: stable & adequate Anesthetic Complications: no major complications apparent and Pt Satisfied with anesthetic care
--- NOTE | 2024-08-13 11:56 | Fluoroscopy Report ---
FL retrograde includes kub CLINICAL HISTORY: RT SIDE CYSTOright-sided cystourethrogram COMPARISON STUDY: CT abdomen and pelvis 07/22/2024 FLUOROSCOPY TIME: 4.8 second FLUOROSCOPY IMAGES: 1 EXPOSURE DOSE: 0.58 mGy FINDINGS: Proximal portion of a right ureteral stent appears to be in satisfactory positioning, dista l portion not imaged. No ureteral calculi are seen. Cholecystectomy. IMPRESSION: Fluoroscopic assistance as above. ACT 112: Negative or not required by law. Electronically signed by: Luis Eduardo Charles M.D. 08/13/2024 11:54 AM
--- NOTE | 2024-08-14 06:51 | Hospitalist Progress Note ---
<Statement entered by Zev King, DO - 08/14/24 13:56> I have seen and examined the patient and have discussed the case with the advance practice provider. I have reviewed the advanced practitioner's documentation, and I agree with, and take responsibility for that plan of care. Patient reports she is doing well. No pain. Understands need for completing therapy in the hospital for due to needing IV antibiotics. Further plan of care as outlined below. I spent a total of 12 minutes coordinating, documenting, and providing care for this patient excluding time spent by another provider/QHP. Date of Service August 14, 2024 Assessment & Plan (1) Complicated UTI (urinary tract infection): Plan: Yun Carlson is an 84y/o F with PMHx significant for PAF [not on anticoagulation 2/2 falls and prior GI bleeding], HFpEF, HTN, HLD, LBBB/IVCD, prolonged QTc, valvular heart disease including aortic and mitral valve insufficiencies, acquired hypothyroidism, SIADH, venous insufficiency, GERD without esophagitis, CKD stage IIIb and CHIQUITA who presented to the ED on 08/10/2024 via referral from her primary [facility] urologist, Dr. Hutchinson, for IV ABX treatment of a complicated UTI after outpatient urine culture from 08/03/2024 grew drug-resistant Pseudomonas aeruginosa and Hafnia alvei. Recent h/o R ureteral stent placement for obstructing R ureteral stone ISO UTI. Prior CTAP done 06/25/2024 >> small obstructing stone measuring 2mm noted at the midureteric junction. Repeat CTAP done 07/22/2024 >> bilateral renal cortical scarring; did not reveal any obvious persistent stones. Repeat urine culture and sensitivities reviewed; continue IV cefepime x 5-day course with EOT on 08/15/2024. S/p cystoscopy, ureteronephroscopy and right ureteral stent exchange with Dr. Hutchinson yesterday. Suspect spontaneous passage of stone. + Cramer catheter in place with dark yellow/brown urine output >> will maintain until otherwise directed by urology. PRN Imodium for diarrhea. (2) Stage 3b chronic kidney disease (CKD): Plan: Cr remains stable, baseline Cr around 1.1-1.3 per chart review. Avoid nephrotoxic agents when able. Monitor renal function closely with daily labs and renally dose medications when able. (3) Leukocytosis: Plan: Suspect 2/2 IV Decadron use during above urological procedure yesterday. Monitor repeat CBC in AM and trend WBC count. Other Chronic Medical Conditions: PAF - Remains rate-controlled. Continue amiodarone and Toprol XL. Not on anticoagulation 2/2 falls and prior GI bleeding. Hypothyroidism - Continue levothyroxine. HTN - BP stable, continue amlodipine. Chronic HFpEF - Euvolemic on exam. Continue Lasix. DVT Prophylaxis: SQ Heparin [Patient has been refusing SQ heparin; encouraged to use SCDs/TEDs.] Code Status: DNR/DNI PCP: Kodi Lizarraga MD Disposition: Likely discharge home tomorrow pending completion of IV ABX as per above. Patient seen in collaboration with Dr. King. Please see addendum. I spent a total of 40 minutes coordinating, documenting, and providing care for this patient excluding time spent in the performance of separately billed services or time spent by another provider/QHP. This included personally reviewing all current laboratories and imaging studies, medical reconciliation, outpatient chart review and discussion with specialists. This chart was completed in part utilizing Speech Voice Recognition Software. Grammatical errors, random word insertions, pronoun errors, and incomplete sentences are an occasional consequence of this system due to software limitations, ambient noise, and hardware issues. Any formal questions or concerns about the content, text, or information contained within the body of this dictation should be directly addressed to the provider for clarification. Admission and Anticipated Discharge Date Admission Date: August 10, 2024 Subjective Patient seen and examined in room N280-2. NAEO. Underwent cystoscopy, ureteronephroscopy and right ureteral stent exchange with Dr. Hutchinson yesterday. Noted that there was no stone identified in the ureter or kidney on ureteroscopy; suspect she passed the stone spontaneously. Endorses good pain control this morning however noted to be incontinent of diarrhea this morning. + Cramer catheter in place with dark yellow output. Tolerating diet without issue. Denies any N/V or abdominal pain. Denies any SOB or chest pain. Review of Systems Review of Systems: At least ten systems reviewed and negative, except as noted in the subjective section. Physical Exam Physical Exam: General: Elderly F. NAD. Sitting up on bedside commode. Pleasant. Conversing appropriately. A+Ox3. HEENT: Normocephalic, atraumatic. Conjunctivae normal. External ear/nose normal, moist mucous membranes. Respiratory: Normal respiratory effort. Lungs clear to auscultation bilaterally. No accessory muscle use. Cardiovascular: Bradycardic rate, regular rhythm. Normal peripheral pulses. No BLE edema. Abdomen/GI: Normal bowel sounds, soft. Nondistended, nontender to palpation in all quadrants. : + Cramer catheter intact with dark yellow urine output. Extremities/MSK: No cyanosis or clubbing. Extremities motor strength intact. Actively moves all extremities. Neurologic: No overt focal deficits. CN's II-XI not formally tested but appear grossly intact bilaterally. Results & Data Results & Data Vital Signs (Past 12 Hours) Vital Signs Temp Pulse Pulse Resp BP Pulse Ox O2 Del Method 08/14/24 02:36 36.6 C 61 16 114/62 95 Room Air 08/14/24 00:00 62 08/13/24 22:56 36.8 C 62 18 120/69 95 Room Air 08/13/24 19:07 36.5 C 64 18 124/69 97 Room Air Laboratory Results BMP 08/13/24 06:09 Sodium 138 Potassium 4.1 Chloride 101 Carbon Dioxide 31 BUN 31 H Creatinine 1.12 Glucose 106 H Calcium 10.2 Diagnostic Findings KUB X-Ray 08/10/24 15:04 Clinical history: Stent One view of the abdomen was obtained Comparison is made to the CT dated 07/22/2024 Findings: The bowel gas pattern appears unremarkable. A right ureteral stent is again seen. No definite renal or ureteral calculi are seen. Surgical clips traversing the distal with prior cholecystectomy. There is mild lumbar scoliosis and degenerative disc disease Impression: Unchanged right ureteral stent Electronically signed by Sundar Gale 08-10-2024 4:15 PM Retrograde Pyelogram 08/13/24 08:56 FL retrograde includes kub CLINICAL HISTORY: RT SIDE CYSTOright-sided cystourethrogram COMPARISON STUDY: CT abdomen and pelvis 07/22/2024 FLUOROSCOPY TIME: 4.8 second FLUOROSCOPY IMAGES: 1 EXPOSURE DOSE: 0.58 mGy FINDINGS: Proximal portion of a right ureteral stent appears to be in satisfactory positioning, distal portion not imaged. No ureteral calculi are seen. Cholecystectomy. IMPRESSION: Fluoroscopic assistance as above. ACT 112: Negative or not required by law. Electronically signed by: Luis Eduardo Charles M.D. 08/13/2024 11:54 AM (3) Leukocytosis Leukocytosis type: unspecified Qualified Code(s): D72.829 - Elevated white blood cell count, unspecified
[2024-08-14 09:43] LABS: Hematocrit (blood only) 36.3 % (37.0-47.0); Hemoglobin 11.6 g/dl (12.0-16.0); Mean Corpuscular Hemoglobin 30.8 pg (25.0-34.0); Mean Corpuscular Volume 96.3 fL (80.0-100.0); Mean Platelet Volume 10.7 fL (9.4-12.4); Platelet Count 209 K/uL (130-400); RDW Coefficient of Variation 14.5 % (11.5-14.5); Red Blood Count 3.77 M/uL (4.20-5.40); White Blood Count 17.78 K/ul (4.8-10.8)
[2024-08-14 10:04] LABS: BUN Creatinine Ratio 22.7 (10-20); Calcium 10.7 mg/dl (8.6-10.3); Creatinine Clr Calc Pharmacy 26.1 ml/min; Potassium 3.8 mmol/L (3.5-5.1)
--- NOTE | 2024-08-14 10:56 | Urology Progress Note ---
Date of Service August 14, 2024 Assessment & Plan (1) Right ureteral stone: (2) Acute UTI: Plan: - Pt POD#1 s/p Cystoscopy, Ureteronephroscopy and Exchange of Right Ureteral Stent - Doing well, progressing as expected - Afebrile, hemodynamically stable - Lab work reviewed - creatinine 1.19, WBC 17.78 - She is tolerating right ureteral stent with minimal bother - Right ureteral stent was left on a tether with possible plan for removal today - Will plan to maintain Cramer catheter and ureteral stent another day given leukocytosis - Continue antibiotics and medical management per hospital service - will follow Admission and Anticipated Discharge Date Admission Date: August 10, 2024 Subjective Patient seen and examined at bedside this morning. She is awake and standing up out of her chair. Denies pain at present. Cramer intact. Denies nausea, vomiting, fever or chills. Review of Systems Constitutional: as per Subjective / HPI Genitourinary: as per Subjective / HPI Physical Exam Constitutional: no acute distress Respiratory: normal respiratory effort; no respiratory distress and no labored breathing Gastrointestinal (Abdomen): Inspection/Auscultation: abdomen normal to inspection Musculoskeletal: Head/Neck/Chest: normocephalic Neurologic: moves all extremities and awake Psychiatric: Orientation: alert and oriented x 3 Genitourinary: Cramer intact Results & Data Vital Signs (Past 12 Hours) Vital Signs Temp Pulse Pulse Resp BP Pulse Ox O2 Del Method 08/14/24 09:08 56 L 08/14/24 07:49 36.5 C 57 L 18 153/73 H 94 Room Air 08/14/24 07:44 Room Air 08/14/24 02:36 36.6 C 61 16 114/62 95 Room Air 08/14/24 00:00 62 08/13/24 22:56 36.8 C 62 18 120/69 95 Room Air PG Care Time/CCT Total # of Minutes Spent Total Time Spent with Patient: Total time spent is greater than 50% in coordination of care (as documented) at patient's floor/unit and/or counseling patient: Coding Level of Care Code 72903 SUB INP/OBS CARE 2/35MIN Diagnoses Right ureteral stone N20.1 Acute UTI N39.0
[2024-08-14] MEDS: LOPERAMIDE HCL 2 MG CAP PO PRN (19:53)
[2024-08-15 06:35] LABS: Hematocrit (blood only) 31.9 % (37.0-47.0); Hemoglobin 10.5 g/dl (12.0-16.0); Mean Corpuscular Hemoglobin 31.3 pg (25.0-34.0); Mean Corpuscular Hgb Conc 32.9 g/dL (32.0-36.0); Mean Corpuscular Volume 94.9 fL (80.0-100.0); Mean Platelet Volume 10.9 fL (9.4-12.4); Platelet Count 156 K/uL (130-400); RDW Coefficient of Variation 14.4 % (11.5-14.5); RDW Standard Deviation 49.7 fL (36.4-46.3); Red Blood Count 3.36 M/uL (4.20-5.40); White Blood Count 11.28 K/ul (4.8-10.8)
[2024-08-15 07:09] LABS: BUN Creatinine Ratio 26.3 (10-20); Calcium 10.3 mg/dl (8.6-10.3); Creatinine Clr Calc Pharmacy 26.3 ml/min; Magnesium 2.1 mg/dl (1.7-2.4); Potassium 4.4 mmol/L (3.5-5.1)
--- NOTE | 2024-08-15 07:41 | Urology Progress Note ---
Date of Service August 15, 2024 Assessment & Plan (1) Acute UTI: (2) Right ureteral stone: Plan: POD #2 s/p Cystoscopy, Ureteronephroscopy and Exchange of Right Ureteral Stent Patient afebrile, hemodynamically stable Labs reviewedCreatinine 1.18, WBC improved to 11.28 today Cramer catheter and tethered stent removed this morning by urology, RN aware Patient tolerated without difficulty Monitor for void, bladder scan as needed Continue antibiotics per hospital medicine Will arrange outpatient follow-up with our service will sign off, please contact our service with any additional questions or concerns Admission and Anticipated Discharge Date Admission Date: August 10, 2024 Subjective Patient seen and examined at bedside this morning. She is awake and sitting up in bedside chair. No acute issues overnight. Denies pain. Denies nausea, vomiting, fever or chills. Cramer intact. WBC improved to 11.28 today. Review of Systems Constitutional: as per Subjective / HPI Genitourinary: as per Subjective / HPI Physical Exam Constitutional: no acute distress Respiratory: normal respiratory effort; no respiratory distress and no labored breathing Gastrointestinal (Abdomen): Inspection/Auscultation: abdomen normal to inspection Musculoskeletal: Head/Neck/Chest: normocephalic Neurologic: moves all extremities and awake Psychiatric: Orientation: alert and oriented x 3 Genitourinary: Cramer intact Results & Data Vital Signs (Past 12 Hours) Vital Signs Temp Pulse Pulse Resp BP Pulse Ox O2 Del Method 08/15/24 07:31 36.7 C 60 18 137/70 94 Room Air 08/15/24 03:36 36.4 C L 57 L 16 110/65 94 Room Air 08/14/24 22:18 37 C 98 H 18 115/67 97 Room Air 08/14/24 22:11 91 H PG Care Time/CCT Total # of Minutes Spent Total Time Spent with Patient: Total time spent is greater than 50% in coordination of care (as documented) at patient's floor/unit and/or counseling patient: Coding Level of Care Code 37857 SUB INP/OBS CARE 2/35MIN Diagnoses Acute UTI N39.0 Right ureteral stone N20.1
--- NOTE | 2024-08-15 10:32 | Discharge Summary ---
<Statement entered by Zev King, - 08/15/24 13:12> I have seen and examined the patient and have discussed the case with the advance practice provider. I have reviewed the advanced practitioner's documentation, and I agree with, and take responsibility for that plan of care. Patient doing well. Eager to get home. Completed course of antibiotics for UTI here in the hospital Discussed discharge plans as outlined below I spent a total of 10 minutes coordinating, documenting, and providing care for this patient excluding time spent by another provider/QHP. 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 Hutch[place], for IV ABX treatment of a complicated UTI after outpatient urine culture from 08/03/2024 grew drug-resistant Pseudomonas aeruginosa and Hafnia alvei. Recent history of right ureteral stent placement for obstructing right ureteral stone. Completed 5-day course of IV cefepime. S/p cystoscopy, ureteronephroscopy and right ureteral stent exchange with Dr. Hutchinson on 08/13/2024; suspect spontaneous passage of stone. Tethered right ureteral stent and Cramer catheter removed on day of discharge with subsequent successful spontaneous voiding trial. Outpatient follow-up appointment with urology to be arranged. (2) Stage 3b chronic kidney disease (CKD): Cr remains stable on discharge; baseline Cr around 1.1-1.3 per chart review. (3) Leukocytosis: Suspect 2/2 IV Decadron use during above urological procedure - improving on repeat labs. Other Chronic Medical Conditions: PAF - Continue amiodarone and Toprol XL. Not on anticoagulation 2/2 falls and prior GI bleeding. Hypothyroidism - Continue levothyroxine. HTN - Continue amlodipine. Chronic HFpEF - Continue Lasix. PCP: Kodi Lizarraga MD Disposition: Patient is being discharged home in stable condition with outpatient PCP and urology follow-up. Patient seen in collaboration with Dr. King. Please see addendum. I spent a total of 45 minutes coordinating, documenting, and providing care for this patient excluding time spent in the performance of separately billed services or time spent by another provider/QHP. This included personally reviewing all current laboratories and imaging studies, medical reconciliation, outpatient chart review and discussion with specialists. This chart was completed in part utilizing Speech Voice Recognition Software. Grammatical errors, random word insertions, pronoun errors, and incomplete sentences are an occasional consequence of this system due to software limitations, ambient noise, and hardware issues. Any formal questions or concerns about the content, text, or information contained within the body of this dictation should be directly addressed to the provider for clarification. Notes For Next Care Provider Will need outpatient to arrange outpatient urology follow-up appointment with Dr. Hutchinson. Medication Changes From Visit No medication changes were made during this admission. Admission HPI Per Admitting Provider Pt is an 84 y/o female with PAF, chronic HFpEF, LBBB, moderate to severe MR, moderate AI, CKD3, hypothyroidism, SIADH, GERD who was sent in by her Urologist for IV treatment of her UTI. Pt with hearing loss and hearing aids left at home. History obtained from family member at bedside. Family member states that she has been having recurrent UTIs since February. Had to have a procedure cancelled with Urology for ureteroscopy and laser lithotripsy on 08/03/2024 as she was having dysuria. A urine culture drawn by urology noted pseudomonas resistant to the only oral options for treatment. So she was advised by Urology to present to the ED for admission and IV antibiotics. Denies fevers, chills or night sweats. States she was on an oral antibiotic that she recently completed before the burning and dysuria started once more. States she is bloated and has a constant right sided ache. Denies N/V Admission Exam Per Admitting Provider General: Alert, oriented. No acute distress Skin: No noted rashes or bruises Psych: Appropriate mood and affect Neuro: No gross deficits HEENT: NC/AT CV: RRR Resp: Breath sounds clear bilaterally, no increased effort of breathing Abdomen: Soft,mildly tender in RLQ, nondistended Extremities: No edema in lower extremities bilaterally. Discharge Exam General: Elderly F. NAD. Sitting up in chair at bedside. Pleasant. Conversing appropriately. A+Ox3. HEENT: Normocephalic, atraumatic. Conjunctivae normal. External ear/nose normal, moist mucous membranes. Respiratory: Normal respiratory effort. Lungs clear to auscultation bilaterally. No accessory muscle use. Cardiovascular: Bradycardic rate, regular rhythm. Normal peripheral pulses. No BLE edema. Abdomen/GI: Normal bowel sounds, soft. Nondistended, nontender to palpation in all quadrants. Extremities/MSK: No cyanosis or clubbing. Extremities motor strength intact. Actively moves all extremities. Neurologic: No overt focal deficits. CN's II-XI not formally tested but appear grossly intact bilaterally. Updated Medication List Medication Instructions Recorded Confirmed Type aspirin 325 mg tablet 325 mg PO QAM #100 tabs 01/28/19 08/10/24 History levothyroxine 75 mcg capsule 75 mcg PO DAILYBB 03/14/19 08/10/24 History amlodipine 10 mg tablet 10 mg PO QDD #90 tabs 03/21/20 08/10/24 Rx diclofenac sodium 1 % topical gel 2 g topical QID PRN Pain 05/27/21 08/10/24 History cyanocobalamin (vitamin B-12) 1,000 mcg PO Q OTHER DAY 07/18/22 08/10/24 History 1,000 mcg tablet multivitamin with minerals 1 tab PO DAILY 07/18/22 08/10/24 History (Multiple Vitamin-Minerals tablet) calcium 600 mg (as 1 tab PO DAILY 11/27/23 08/10/24 History carbonate)-vitamin D3 10 mcg (400 unit) tablet (Calcium 600 + D(3)) peg 400-propylene glycol 0.4 %-0.3 1 drp ophthalmic (eye) QID 11/27/23 08/10/24 History % eye drops (Systane Ultra) vit C 250 mg-vit E 90 mg-zinc 40 2 tab PO QAM 11/27/23 08/10/24 History mg-copper 1 [id number] capsule (PreserVision AREDS-2) amiodarone 200 mg tablet 200 mg PO QDD #90 tabs 05/11/24 08/10/24 Rx furosemide 40 mg tablet 40 mg PO QAM #90 tabs 06/02/24 08/10/24 Rx metoprolol succinate 50 mg 50 mg PO BID #180 tabs 07/14/24 08/10/24 Rx tablet,extended release 24 hr L.acidop,casei,lactis,rham-B.lact,nicole 2 cap PO QAM 08/10/24 08/10/24 History 625 mg (10 billion cell) capsule (Advanced Probiotic) magnesium oxide 400 mg PO QAM 08/10/24 08/10/24 History potassium gluconate 595 mg (99 mg) 595 mg PO QAM 08/10/24 08/10/24 History tablet Hospital Stay Data Consultations 08/10/24 15:14 ED Decision to Admit Stat 08/10/24 19:53 Consult Urology Routine Procedures Performed Operation Date: 08/13/24 10:30 Actual Procedures p Cystoscopy, Ureteronephroscopy and Exchange of Right Ureteral Stent - Cordell Hutchinson MD Diagnostic Imagining Performed 08/13/24 08:56 FL retrograde includes kub Routine Pending Results Patient Have Any Pending Studies at Discharge: No Discharge Instructions Given to Patient (Per Discharging Provider) carmelita Romero were admitted to [facility] for an acute complicated urinary tract infection (UTI). Your urine culture grew 2 different bacteria including Pseudomonas aeruginosa and Hafnia alvei. Your UTI was treated with a full 5-day course of IV cefepime (antibiotic) therapy. Recommendations for Follow-Up You will be contacted soon to schedule a follow-up appointment with urology. Please attend your PCP hospital discharge follow-up appointment as outlined below. Date & Time: 08/22/2024 @ 9:00 AM Provider: Kodi Lizarraga MD Location: [facility] Seek medical attention if you have: * temperature above 101F * chest pain or trouble breathing * abdominal pain, nausea, vomiting * diarrhea, dark stools or bloody stools * any unanswered questions or concerns Call 911 if symptoms are severe. Please take good care of yourself! It has been a pleasure taking care of you. If you have any questions regarding your recent hospitalization please contact [facility] and request [facility] Hospitalist @ [phone]. Total Time Total Time Spent Total Time Spent (In Minutes): 45
[2024-08-15 11:24] VITALS: BP 114/66; PULSE 60; RESP 16; TEMP 97.9; O2SAT 96
== END 2024-08-15 16:09 | disposition home or self-care (01) | DRG 660 ==
LOC: ED 14:21 → SUATTDRO 16:24 → EDINP 16:24 → 2N 19:44

== ENCOUNTER 2024-11-17 15:17 | Inpatient (IN) ==
--- NOTE | 2024-11-17 15:33 | Emergency Department Note ---
History of Present Illness General Chief Complaint: Abdominal Pain Stated Complaint: AB PAIN, POSITIVE UTI TEST Time Seen by Provider: 11/17/24 15:20 History of Present Illness Provider Complaint: abdominal pain Onset (ago): 2 day(s) Pain Consistency: intermittent Location: suprapubic Radiation: LLQ Quality: + stabbing and + sharp Relieved By: + nothing Context: + history of similar episodes (History of recurrent UTIs); no foreign travel or no recent antibiotic use Associated Symptoms: + diarrhea and + dysuria; no nausea, no vomiting, no fever, no chills, no constipation, no hematemesis, no hematuria, no chest pain and no breathing difficulty Home Medications Medication Instructions Recorded Confirmed Type aspirin 325 mg tablet 325 mg PO QAM #100 tabs 01/28/19 11/17/24 History levothyroxine 75 mcg capsule 75 mcg PO DAILYBB 03/14/19 11/17/24 History amlodipine 10 mg tablet 10 mg PO QDD #90 tabs 03/21/20 11/17/24 Rx diclofenac sodium 1 % topical gel 2 g topical QID PRN Pain 05/27/21 11/17/24 History cyanocobalamin (vitamin B-12) 1,000 mcg PO Q OTHER DAY 07/18/22 11/17/24 History 1,000 mcg tablet multivitamin with minerals 1 tab PO DAILY 07/18/22 11/17/24 History (Multiple Vitamin-Minerals tablet) calcium 600 mg (as 1 tab PO DAILY 11/27/23 11/17/24 History carbonate)-vitamin D3 10 mcg (400 unit) tablet (Calcium 600 + D(3)) peg 400-propylene glycol 0.4 %-0.3 1 drp OPB QID 11/27/23 11/17/24 History % eye drops (Systane Ultra) vit C 250 mg-vit E 90 mg-zinc 40 2 tab PO QAM 11/27/23 11/17/24 History mg-copper 1 dm-ldceyd-jonjyd capsule (PreserVision AREDS-2) amiodarone 200 mg tablet 200 mg PO QDD #90 tabs 05/11/24 11/17/24 Rx furosemide 40 mg tablet 40 mg PO QAM #90 tabs 06/02/24 11/17/24 Rx metoprolol succinate 50 mg 50 mg PO BID #180 tabs 07/14/24 11/17/24 Rx tablet,extended release 24 hr L.acidop,casei,lactis,rham-B.lact,nicole 2 cap PO QAM 08/10/24 11/17/24 History 625 mg (10 billion cell) capsule (Advanced Probiotic) magnesium oxide 400 mg PO QAM 08/10/24 11/17/24 History potassium gluconate 595 mg (99 mg) 595 mg PO QAM 08/10/24 11/17/24 History tablet buspirone 5 mg tablet 5 mg PO BID PRN Anxiety 11/17/24 11/17/24 History methenamine hippurate 1 gram tablet 1 g PO BID 11/17/24 11/17/24 History Allergies Allergy/AdvReac Type Severity Reaction Status Date / Time Quinolones Allergy Intermediate HIVES Verified 11/17/24 17:13 dabigatran etexilate Allergy Unknown ON Verified 11/17/24 17:13 [employer] MED LIST metronidazole AdvReac Intermediate GI SYMPTOMS Verified 11/17/24 17:13 sulfamethoxazole AdvReac Mild GI SYMPTOMS Verified 11/17/24 17:13 trimethoprim AdvReac Mild GI SYMPTOMS Verified 11/17/24 17:13 Past Med/Surg History Problem List (Updated 11/17/24 @ 19:14 by Filiberto Rogers MD) Acute UTI (Acute) Complicated UTI (urinary tract infection) tx for UTI (finished abx 07/24/24) Chronic kidney disease, stage 3a Aortic insufficiency Mitral regurgitation Bilateral pleural effusion (Acute) Paroxysmal atrial fibrillation Anemia (Acute) Hypothyroidism (HFpEF) heart failure with preserved ejection fraction On amiodarone therapy Hypertension Medical History Acute UTI Renal colic Hydronephrosis Right ureteral stone High serum calcium 01/2024 Kidney stone Leukocytosis Failure of outpatient treatment Generalized weakness Macular degeneration Cat scratch 02/17/2024 Stage 3b chronic kidney disease (CKD) Pulmonary hypertension RSVP 40-50mmHg per 04/2024 ECHO Heart valve disease 04/2024 ECHO: mild-mod AR, mod MR, mild TR CHIQUITA (generalized anxiety disorder) PVD (peripheral vascular disease) Hyperlipidemia SIADH (syndrome of inappropriate ADH production) usually takes salt tab; has been off since 06/27/24 [facility] admission History of recent hospitalization [facility] 06/25-06/27/24: dx: acute UTI, R ureteric stone (stent placement 06/25/24) acute on chronic CHF, acute hypoxemic resp failure Urinary tract infection Infection of wound hematoma H/O- 2016 HTN (hypertension) On amiodarone therapy Hypothyroidism History of anemia no current issues Hx of pleural effusion (2021) seen most recently on abd/pelvis CT 06/25/24 Chronic kidney disease, stage 3a IIIa/IIIb per chart review Macular degeneration Kidney stones Hx of congestive heart failure Paroxysmal atrial fibrillation controlled w/ amiodarone - follows w/ Dr Canela Hx of recurrent urinary tract infection completed abx 07/24/24 Pulmonary edema seen most recently abd/pelvis CT 06/25/24 Elevated brain natriuretic peptide (BNP) level hx of Shortness of breath mild, w/ exertion Chronic heart failure with preserved ejection fraction 05/02/24 ECHO: Grade II DD c/w marked CHF; EF 55-60% Atypical chest pain hx - denies current issues GERD (gastroesophageal reflux disease) Pneumonia hx- no issues since ~2021 per pt Diverticulitis h/o > 2019 Surgical History History of cystoscopy cysto, R ureteral stent 06/25/24: MAC without issue Hx of tubal ligation History of umbilical hernia repair incarcerated - unknown age Hx of hernia repair right inguinal 2013 Hx of cholecystectomy Hx of hysterectomy Family History Mother Stroke Social History Smoking Status: Never smoker Second Hand Exposure: No; Do You Dip or Chew Tobacco: No; Hx Alcohol Use: No Hx Substance Use: No Preferred Language: Tristanian Communication Ability: Effective It Program Manager Required: No Beliefs That Will Affect Care: None marital status: Current Living Situation: Alone Current Living Situation Comment: Has an aide who comes over current occupational status: retired How many Children do You have: 3 Feels Safe at Home: Yes Assistive Devices: Walker Physical Exam 2 Vital Signs: Vital Signs - 24 hr 11/17/24 15:19 11/17/24 15:33 11/17/24 15:45 Temperature 36.7 C Temperature Source Oral Pulse Rate 68 62 60 Pulse Rate from Sp O2 Sensor 62 60 Respiratory Rate 24 22 20 Blood Pressure 152/71 H 161/69 H Blood Pressure Christine n 98 99 Pulse Oximetry 95 95 95 Oxygen Delivery Me thod Room Air Sepsis Recent Feve r Within 48 Hours No Sepsis New/Unexpla ined Change in Men jonny Status No Sepsis Action Take n by Nursing No Action Required 11/17/24 15:54 11/17/24 16:06 11/17/24 16:15 Temperature Temperature Source Pulse Rate 57 L 56 L 57 L Pulse Rate from Sp O2 Sensor 56 L 57 L Respiratory Rate 18 18 Blood Pressure Blood Pressure Christine n Pulse Oximetry 97 97 Oxygen Delivery Me thod Sepsis Recent Feve r Within 48 Hours Sepsis New/Unexpla ined Change in Men jonny Status Sepsis Action Take n by Nursing 11/17/24 16:27 11/17/24 16:39 11/17/24 16:48 Temperature Temperature Source Pulse Rate 65 59 L 57 L Pulse Rate from Sp O2 Sensor 60 57 L Respiratory Rate 22 20 18 Blood Pressure 150/60 H 148/60 H 144/64 H Blood Pressure Christine n 90 89 90 Pulse Oximetry 96 97 Oxygen Delivery Me thod Sepsis Recent Feve r Within 48 Hours Sepsis New/Unexpla ined Change in Men jonny Status Sepsis Action Take n by Nursing 11/17/24 16:57 11/17/24 17:15 11/17/24 17:36 Temperature Temperature Source Pulse Rate 58 L 58 L Pulse Rate from Sp O2 Sensor 57 L Respiratory Rate 27 H 19 Blood Pressure 155/60 H 147/63 H 141/58 H Blood Pressure Christine n 91 100 85 Pulse Oximetry 97 Oxygen Delivery Me thod Sepsis Recent Feve r Within 48 Hours Sepsis New/Unexpla ined Change in Men jonny Status Sepsis Action Take n by Nursing 11/17/24 17:45 11/17/24 18:09 11/17/24 18:15 Temperature Temperature Source Pulse Rate 61 63 Pulse Rate from Sp O2 Sensor 60 63 Respiratory Rate 19 23 Blood Pressure 148/67 H 138/58 L 144/60 H Blood Pressure Christine n 97 84 88 Pulse Oximetry 96 96 Oxygen Delivery Me thod Sepsis Recent Feve r Within 48 Hours Sepsis New/Unexpla ined Change in Men jonny Status Sepsis Action Take n by Nursing Physical Exam: Physical Exam GENERAL: oriented to person, place, and time. appears well-developed and well- nourished. HENT: Exam performed. - Head: Normocephalic and atraumatic. EYES: Conjunctivae and EOM are normal. Right eye exhibits no discharge. Left eye exhibits no discharge. No scleral icterus. NECK: Normal range of motion. Neck supple. No JVD present. CV: Normal rate, regular rhythm, normal heart sounds and intact distal pulses. There is no peripheral edema. Palpable radial pulses bue. PULM/CHEST: Effort normal and breath sounds normal. No respiratory distress. No stridor. no wheezes. no rales. ABD: The abdomen is soft. There is tenderness to palpation of the suprapubic and left lower quadrant area. NEURO: Motor and sensation grossly intact. Course Course 1520: The patient was evaluated in room C12. A complete history and physical exam was performed Cardiac monitoring: An order was placed for continuous cardiac monitoring. The monitor shows a rate of 60 with sinus rhythm interpreted by me 1840: Vital signs stable. Labs are unremarkable. Imaging is unremarkable. Patient does have UTI. Patient treated cefepime. Discussed with Dr. Rosario who will admit the patient for UTI given her history of Pseudomonas UTIs. Administered Medications Discontinued Medications Cefepime HCl (Maxipime 2000mg) 2,000 mg in 20 mls @ 5 mls/min IV NOW STA; Protocol Stop: 11/17/24 17:29 Last Admin: 11/17/24 17:35 Dose: 5 mls/min Documented By: CRISTY Medical Decision Making Medical Records Attestation: I reviewed the patient's medical records. External medical records reviewed. Patient was admitted from 80 to October 04, 2024 for similar episode of UTI. During the patient's previous admission she was initially started on cefepime as her previous 2 urine cultures before that grew out Pseudomonas. During her last admission in September 2024 the patient grew out Klebsiella. Patient was switched from cefepime to Rocephin and was discharged with prescription Bactrim. Laboratory Data Attestation: I reviewed the patient's lab results. 11/17/24 15:49 11/17/24 15:49 Lab Results 11/17/24 11/17/24 11/17/24 Range/Units 15:49 16:18 16:19 WBC 8.23 (4.8-10.8) K/ul RBC 3.35 L (4.20-5.40) M/uL Hgb 11.0 L (12.0-16.0) g/dl Hct 32.0 L (37.0-47.0) % MCV 95.5 (80.0-100.0) fL MCH 32.8 (25.0-34.0) pg MCHC 34.4 (32.0-36.0) g/dL RDW Std Deviation 49.8 H (36.4-46.3) fL RDW Coeff of Ursula 14.1 (11.5-14.5) % Plt Count 225 (130-400) K/uL MPV 10.0 (9.4-12.4) fL Immature Gran % (Auto) 0.4 % Neut % (Auto) 59.4 % Lymph % (Auto) 23.0 % [place] % (Auto) 12.9 % Eos % (Auto) 3.3 % Baso % (Auto) 1.0 % Neut # (Auto) 4.90 (1.40-6.50) K/uL Lymph # (Auto) 1.89 (1.20-3.40) K/uL [place] # (Auto) 1.06 H (0.11-0.59) K/uL Eos # (Auto) 0.27 (0.00-0.50) K/uL Baso # (Auto) 0.08 (0.00-0.20) K/uL Immature Gran # (Auto) 0.03 (0.01-0.20) K/uL PT 10.0 (9.0-12.0) Seconds INR 0.9 (0.9-1.1) APTT 28 (21-31) Seconds PTT Ratio 1.0 Sodium 130 L (136-145) mmol/L Potassium 4.0 (3.5-5.1) mmol/L Chloride 95 L (98-107) mmol/L Carbon Dioxide 26 (21-32) mmol/L Anion Gap 9 (3-11) BUN 15 (6-23) mg/dl Creatinine 1.06 (0.6-1.2) mg/dl Est Cr Clr Drug Dosing 32.4 ml/min eGFR 51.16 BUN/Creatinine Ratio 14.2 (10-20) Glucose 95 (70-99(Fasting)) mg/dl Osmolality 279 L (280-300) mOsm/kg Lactate 1.0 (0.4-2.0) mmol/L Calcium 9.7 (8.6-10.3) mg/dl Magnesium 2.2 (1.7-2.4) mg/dl Total Bilirubin 0.5 (0.2-1.0) mg/dl Direct Bilirubin 0.0 (0-0.2) mg/dl AST 19 (13-39) U/L ALT 11 (7-52) U/L Alkaline Phosphatase 91 (34-104) U/L Troponin I High Sens 4.6 (0-14) pg/ml B-Natriuretic Peptide 282 H (0-100) pg/ml Total Protein 8.4 H (6.0-8.3) gm/dl Albumin 4.3 (3.4-5.0) gm/dl Procalcitonin < 0.02 (0-0.5) ng/ml Urine Color Urine Appearance (Clear) Urine pH (4.5-7.5) Ur Specific [place] (1.000-1.030) Urine Protein (Negative) Urine Glucose (UA) (Negative) Urine Ketones (Negative) Urine Blood (Negative) Urine Nitrite (Negative) Urine Bilirubin (Negative) Urine Urobilinogen (Negative) Ur Leukocyte Esterase (Negative) Urine WBC (Auto) (0-5) /hpf Urine RBC (Auto) (0-2) /hpf U Hyaline Cast (Auto) (0-2) /lpf U Epithel Cells (Auto) (0-2) /hpf Urine Bacteria (Auto) (None Seen) Urine Comment 11/17/24 Range/Units 16:27 WBC (4.8-10.8) K/ul RBC (4.20-5.40) M/uL Hgb (12.0-16.0) g/dl Hct (37.0-47.0) % MCV (80.0-100.0) fL MCH (25.0-34.0) pg MCHC (32.0-36.0) g/dL RDW Std Deviation (36.4-46.3) fL RDW Coeff of Ursula (11.5-14.5) % Plt Count (130-400) K/uL MPV (9.4-12.4) fL Immature Gran % (Auto) % Neut % (Auto) % Lymph % (Auto) % [place] % (Auto) % Eos % (Auto) % Baso % (Auto) % Neut # (Auto) (1.40-6.50) K/uL Lymph # (Auto) (1.20-3.40) K/uL [place] # (Auto) (0.11-0.59) K/uL Eos # (Auto) (0.00-0.50) K/uL Baso # (Auto) (0.00-0.20) K/uL Immature Gran # (Auto) (0.01-0.20) K/uL PT (9.0-12.0) Seconds INR (0.9-1.1) APTT (21-31) Seconds PTT Ratio Sodium (136-145) mmol/L Potassium (3.5-5.1) mmol/L Chloride (98-107) mmol/L Carbon Dioxide (21-32) mmol/L Anion Gap (3-11) BUN (6-23) mg/dl Creatinine (0.6-1.2) mg/dl Est Cr Clr Drug Dosing ml/min eGFR BUN/Creatinine Ratio (10-20) Glucose (70-99(Fasting)) mg/dl Osmolality (280-300) mOsm/kg Lactate (0.4-2.0) mmol/L Calcium (8.6-10.3) mg/dl Magnesium (1.7-2.4) mg/dl Total Bilirubin (0.2-1.0) mg/dl Direct Bilirubin (0-0.2) mg/dl AST (13-39) U/L ALT (7-52) U/L Alkaline Phosphatase (34-104) U/L Troponin I High Sens (0-14) pg/ml B-Natriuretic Peptide (0-100) pg/ml Total Protein (6.0-8.3) gm/dl Albumin (3.4-5.0) gm/dl Procalcitonin (0-0.5) ng/ml Urine Color Yellow Urine Appearance Clear (Clear) Urine pH 6.5 (4.5-7.5) Ur Specific [place] 1.014 (1.000-1.030) Urine Protein Trace H (Negative) Urine Glucose (UA) Negative (Negative) Urine Ketones Negative (Negative) Urine Blood Negative (Negative) Urine Nitrite Negative (Negative) Urine Bilirubin Negative (Negative) Urine Urobilinogen Negative (Negative) Ur Leukocyte Esterase 2+ H (Negative) Urine WBC (Auto) >50 H (0-5) /hpf Urine RBC (Auto) 0-2 (0-2) /hpf U Hyaline Cast (Auto) 3-5 H (0-2) /lpf U Epithel Cells (Auto) 0-2 (0-2) /hpf Urine Bacteria (Auto) 4+ H (None Seen) Urine Comment Imaging Data Radiologist's Impression: Chest X-Ray 11/17/24 15:21 SINGLE VIEW CHEST CLINICAL HISTORY: Sepsis FINDINGS: An AP, portable, upright chest radiograph is compared to study dated 06/25/2024 and correlated with chest CT dated 05/05/2021. The heart is enlarged and noting atherosclerotic calcification of the thoracic aorta. There is pulmonary vascular congestion. There are mild bilateral airspace opacities. Small pleural effusions are suspected. No pneumothorax is seen. The skeletal structures are osteopenic. The bony thorax is grossly intact. IMPRESSION: 1. Cardiomegaly with evidence of congestive failure. 2. Bilateral airspace opacities likely represent mild pulmonary edema. Correlate clinically for evidence of a superimposed infectious/inflammatory pneumonitis. Radiographic follow-up to resolution is recommended. 3. Small pleural effusions. ACT 112: Negative or not required by law. Electronically signed by: Yuan Camargo M.D. 11/17/2024 3:37 PM Abdomen/Pelvis CT 11/17/24 15:25 Clinical History: Abdominal pain Technique: Axial computed tomography images were obtained of the abdomen and pelvis without intravenous contrast. Comparison is made to the prior CT dated 10/02/2024 Findings: The liver is diffusely nodular in contour, consistent with cirrhosis. The liver is enlarged measuring 19.7 cm craniocaudal. No definite liver mass lesion is seen on this noncontrast study. The gallbladder has been removed. There is mild bile duct dilatation that is likely due to the postcholecystectomy state. The spleen is of normal size. No focal splenic lesion is evident. There is an unchanged apparent 8 mm cyst in the proximal pancreatic body. Mild pancreatic ductal dilatation is again seen. No pancreatic calcifications are seen. There is no sign of acute pancreatitis. The adrenal glands appear unremarkable. No renal or proximal ureteral calculi are seen. There is unchanged mild dilatation of the right renal collecting system and prominence of the right renal pelvis. There is an unchanged 2-3 mm ovarian vein phlebolith adjacent to the proximal right ureter. No definite renal mass lesion is identified. There is a 1.3 cm right renal cyst The aorta is of normal caliber. No abdominal adenopathy is seen. The stomach appears normal. There is an unchanged small right lower quadrant spigelian hernia containing small bowel loops. There is no sign of small bowel obstruction. There is diverticulosis without evidence of diverticulitis. No free intraperitoneal fluid or air is identified. No distal ureteral or bladder calculi are seen. No obvious bladder mass lesion is evident. The iliac arteries are of normal caliber. No pelvic adenopathy is noted. The uterus has been removed. There is a small left inguinal hernia containing only fat There is atelectasis or scar in both lung bases, as well as possible mild pulmonary edema. There is coronary atherosclerosis. The heart is enlarged. Lumbar scoliosis and degenerative disc disease is seen. No fracture is identified. No focal osseous lesion is seen Impression: 1. Cirrhosis and hepatomegaly 2. Unchanged mild dilatation of the right renal collecting system without visible obstructing lesion. This could be due to intrinsic UPJ obstruction or could be residual from prior obstruction or reflux 3. Unchanged pancreatic ductal dilatation and small pancreatic cyst. This could be due to prior pancreatitis. Intraductal papillary mucinous tumor cannot be excluded 4. Right renal cyst 5. Unchanged right lower quadrant spigelian hernia containing small bowel loops. There is no associated obstruction or strangulation 6. Diverticulosis without evidence of diverticulitis 7. Bilateral lung base atelectasis and possible mild pulmonary edema ACT 112: Positive. There are findings on this exam that require communication between the performing entity and the patient following Patient Test Result Information Act ([place] ACT 112) guidelines. Electronically signed by Sundar Gale 11-17-2024 4:43 PM ECG Data Attestation: I personally reviewed and interpreted this ECG as follows: Additional Comments: Sinus bradycardia with rate of 55. UT 336 QRS 142 QTc 493. Left bundle branch block present. Sgarbossa negative. First-degree AV block present. No significant change from the EKG in July 2024. [facility] Narrative 1520: The patient was evaluated in room C12. A complete history and physical exam was performed Cardiac monitoring: An order was placed for continuous cardiac monitoring. The monitor shows a rate of 60 with sinus rhythm interpreted by me 1840: Vital signs stable. Labs are unremarkable. Imaging is unremarkable. Patient does have UTI. Patient treated cefepime. Discussed with Dr. Rosario who will admit the patient for UTI given her history of Pseudomonas UTIs. Impression & Plan Acute UTI Discharge Plan Visit Data Chief Complaint: Abdominal Pain Stated Complaint: AB PAIN, POSITIVE UTI TEST ED Provider: Filiberto Rogers Discharge Problem: Acute UTI Patient Disposition: Admitted As Inpatient Condition: Good Forms Stand Alone Forms: [facility] [employer] 3D Prescriptions Prescriptions: No Action amiodarone 200 mg tablet 200 mg PO QDD Qty: 90 3RF furosemide 40 mg tablet 40 mg PO QAM Qty: 90 3RF Patient Comments: was told yesterday to cut down to 20 mg metoprolol succinate 50 mg tablet extended release 24 hr 50 mg PO BID Qty: 180 3RF amlodipine 10 mg tablet 10 mg PO QDD Qty: 90 3RF aspirin 325 mg tablet 325 mg PO QAM Qty: 100 levothyroxine 75 mcg capsule 75 mcg PO DAILYBB diclofenac sodium 1 % gel 2 g TOPICAL QID PRN (Reason: Pain) Rx Instructions: Apply to left foot four times daily, as needed for pain. Multiple Vitamin-Minerals Tablet 1 tab PO DAILY cyanocobalamin (vitamin B-12) 1,000 mcg Tablet 1,000 mcg PO Q OTHER DAY calcium carbonate-vitamin D3 [Calcium 600 + D(3)] 600 mg-10 mcg (400 unit) Tablet 1 tab PO DAILY PreserVision AREDS-2 250-90-40-1 mg Capsule 2 tab PO QAM Systane Ultra 0.4-0.3 % Drops 1 drp OPB QID buspirone 5 mg tablet 5 mg PO BID PRN (Reason: Anxiety) Rx Instructions: OREDERED TWICE DAILY, PT STATED SHE TAKES THIS MED ONLY NEEDED. methenamine hippurate 1 gram tablet 1 g PO BID Rx Instructions: 11/17/24 THIS MED NOT STARTED YET. Advanced Probiotic 625 mg (10 billion cell) capsule 2 cap PO QAM potassium gluconate 595 mg (99 mg) Tablet 595 mg PO QAM magnesium oxide 400 mg magnesium Tablet 400 mg PO QAM Referrals Referrals: Kodi Lizarraga MD [Primary Care Provider] -
--- NOTE | 2024-11-17 15:38 | XRay Report ---
SINGLE VIEW CHEST CLINICAL HISTORY: Sepsis FINDINGS: An AP, portable, upright chest radiograph is compared to study dated 06/25/2024 and correlat ed with chest CT dated 05/05/2021. The heart is enlarged and noting atherosclerotic calcification of the thoracic aorta. There is pulmonary vascular congestion. There are mild bilateral airspace opaciti es. Small pleural effusions are suspected. No pneumothorax is seen. The skeletal structures are osteo penic. The bony thorax is grossly intact. IMPRESSION: 1. Cardiomegaly with evidence of congestive failure. 2. Bilateral airspace opacities likely represent mild pulmonary edema. Correlate clinically for evide nce of a superimposed infectious/inflammatory pneumonitis. Radiographic follow-up to resolution is re commended. 3. Small pleural effusions. ACT 112: Negative or not required by law. Electronically signed by: Yuan Camargo M.D. 11/17/2024 3:37 PM
[2024-11-17 16:06] LABS: Hematocrit (blood only) 32.0 % (37.0-47.0); Hemoglobin 11.0 g/dl (12.0-16.0); Immature Granulocytes # (auto) 0.03 K/uL (0.01-0.20); Immature Granulocytes % (auto) 0.4 %; Mean Corpuscular Hemoglobin 32.8 pg (25.0-34.0); Mean Corpuscular Volume 95.5 fL (80.0-100.0); Platelet Count 225 K/uL (130-400); RDW Standard Deviation 49.8 fL (36.4-46.3); Red Blood Count 3.35 M/uL (4.20-5.40); White Blood Count 8.23 K/ul (4.8-10.8)
[2024-11-17 16:23] LABS: Alanine Aminotransferase 11.0 U/L (7-52); Alkaline Phosphatase 91.0 U/L (34-104); Anion Gap 9.0 (3-11); Bilirubin,Total 0.5 mg/dl (0.2-1.0); Blood Urea Nitrogen 15.0 mg/dl (6-23); Calcium 9.7 mg/dl (8.6-10.3); Carbon Dioxide 26.0 mmol/L (21-32); Chloride 95.0 mmol/L (98-107); Creatinine Clr Calc Pharmacy 32.4 ml/min; Glucose 95.0 mg/dl (70-99(Fasting)); Magnesium 2.2 mg/dl (1.7-2.4); Potassium 4.0 mmol/L (3.5-5.1); Sodium 130.0 mmol/L (136-145); Total Protein 8.4 gm/dl (6.0-8.3)
[2024-11-17 16:33] LABS: INR 0.9 (0.9-1.1); Partial Thromboplastin Time 28 Seconds (21-31); Prothrombin Time 10.0 Seconds (9.0-12.0)
[2024-11-17 16:41] LABS: Appearance Urine Clear (Clear); Bacteria Urine Automated 4+ (None Seen); Epithelial Cell Urine Auto 0-2 /hpf (0-2); Glucose Urine UA Negative (Negative); RBC Urine Automated 0-2 /hpf (0-2); WBC Urine Automated >50 /hpf (0-5)
--- NOTE | 2024-11-17 16:44 | CT Scan Report ---
Clinical History: Abdominal pain Technique: Axial computed tomography images were obtained of the abdomen and pelvis without intravenous contrast. Comparison is made to the prior CT dated 10/02/2024 Findings: The liver is diffusely nodular in contour, consistent with cirrhosis. The liver is enlarged measuring 19.7 cm craniocaudal. No definite liver mass lesion is seen on this noncontrast study. The gallbladder has been removed. There is mild bile duct dilatation that is likely due to the postcholecystectomy state. The spleen is of normal size. No focal splenic lesion is evident. There is an unchanged apparent 8 mm cyst in the proximal pancreatic body. Mild pancreatic ductal dilatation is again seen. No pancreatic calcifications are seen. There is no sign of acute pancreatitis. The adrenal glands appear unremarkable. No renal or proximal ureteral calculi are seen. There is unchanged mild dilatation of the right renal collecting system and prominence of the right renal pelvis. There is an unchanged 2-3 mm ovarian vein phlebolith adjacent to the proximal right ureter. No definite renal mass lesion is identified. There is a 1.3 cm right renal cyst The aorta is of normal caliber. No abdominal adenopathy is seen. The stomach appears normal. There is an unchanged small right lower quadrant spigelian hernia containing small bowel loops. There is no sign of small bowel obstruction. There is diverticulosis without evidence of diverticulitis. No free intraperitoneal fluid or air is identified. No distal ureteral or bladder calculi are seen. No obvious bladder mass lesion is evident. The iliac arteries are of normal caliber. No pelvic adenopathy is noted. The uterus has been removed. There is a small left inguinal hernia containing only fat There is atelectasis or scar in both lung bases, as well as possible mild pulmonary edema. There is coronary atherosclerosis. The heart is enlarged. Lumbar scoliosis and degenerative disc disease is seen. No fracture is identified. No focal osseous lesion is seen Impression: 1. Cirrhosis and hepatomegaly 2. Unchanged mild dilatation of the right renal collecting system without visible obstructing lesion. This could be due to intrinsic UPJ obstruction or could be residual from prior obstruction or reflux 3. Unchanged pancreatic ductal dilatation and small pancreatic cyst. This could be due to prior pancreatitis. Intraductal papillary mucinous tumor cannot be excluded 4. Right renal cyst 5. Unchanged right lower quadrant spigelian hernia containing small bowel loops. There is no associated obstruction or strangulation 6. Diverticulosis without evidence of diverticulitis 7. Bilateral lung base atelectasis and possible mild pulmonary edema ACT 112: Positive. There are findings on this exam that require communication between the performing entity and the patient following Patient Test Result Information Act ([place] ACT 112) guidelines. Electronically signed by Sundar Gale 11-17-2024 4:43 PM
[2024-11-17] MEDS: CEFEPIME 2000MG 2,000 MG/20 ML SYR IV STA (17:35)
--- NOTE | 2024-11-17 18:52 | History & Physical Report ---
Date of Service November 17, 2024 Assessment & Plan (1) Complicated UTI (urinary tract infection): (2) Hypertension: (3) Paroxysmal atrial fibrillation: (4) Chronic kidney disease, stage 3a: (5) Hypothyroidism: (6) (HFpEF) heart failure with preserved ejection fraction: Plan 84 year old woman with past medical history remarkable for PAF, chronic HFpEF, LBBB, moderate to severe MR, moderate AI, CKD3, hypothyroidism, SIADH, GERD, recurrent UTI who presented with worsening abdominal pain Labs notable for hemoglobin of 11, sodium of 130, BNP of 282 [was 652 in April 2024] Urinalysis notable for 2+ leukocyte esterase, WBC more than 50 Chest x-ray noted cardiomegaly, congestion, bilateral airspace opacity likely mild pulmonary edema, small pleural effusion Abdominal pelvic CT noted cirrhosis and hepatomegaly, unchanged mild dilatation of the right renal collecting system without visible obstructing lesion, unchanged pancreatic ductal dilatation and small pancreatic cyst, right renal cyst, unchanged right lower lobe quadrant spigelian hernia containing small bow el with no associated obstruction, diverticulosis without evidence of diverticulitis, bilateral lung base atelectasis and possible mild pulmonary edema Recurrent Urinary Tract Infection Considering history of multidrug-resistant organism in the past, will continue cefepime for now and de-escalate antibiotics appropriately. Follow-up urine cultures Unchanged mild dilatation of the right renal collecting system without visible obstructing lesion on CT Patient may need urology follow-up for recurrent UTI. Persistent abdominal pain, diarrhea. Possible GI etiology Patient saw GI outpatient yesterday and was recommended to start fibercon 1 tab daily, dulcolax 1 tab 1-2 times a week She stated she she has only taken one dose of the fibercon. Will continue that inpatient With reported diarrhea, will check stool PCR and C diff Chronic Diastolic Heart Failure Has mild pedal edema. BNP is 282 (lower than last) Though imaging is showing possible congestion, will continue her home dose lasix at this point especially in setting of reported diarrhea Monitor volume status and renal function closely Hyponatremia Na is 130 Check serum osm, Uosm, Luis Fernando Past records noted h/o SIADH Fluid restrict and monitor Hypertension Continue [employer] amlodipine pAFib Sinus rhythm Reviewed outpatient Card eval. Follows [facility] Continue metoprolol succinate and ASA 325mg Hypothyroidism Continue levothyroxine Follow up TSH in AM labs DVT ppx- Lovenox Code status- DNR per discussion with patient I spent a total of 75 minutes coordinating, documenting and providing care for this patient excluding time spent in performance of separately billed services History of Present Illness Chief Complaint: Abdominal pain Primary Care Provider: Kodi Lizarraga MD 84 year old woman with past medical history remarkable for PAF, chronic HFpEF, LBBB, moderate to severe MR, moderate AI, CKD3, hypothyroidism, SIADH, GERD, recurrent UTI who presented with worsening abdominal pain. Patient reports she has been having chronic abdominal pain, usually central or lower abdomen associated with diarrhea. In the last 2 days, pain has become significantly increased necessitating presentation to the hospital. Reports she usually only has abdominal pain with her urinary tract infections. Reports frequent, loose bowel movements. Denies nausea, vomiting. Denies urinary frequency, urgency, hematuria. Denied fever, chills, cough, chest pain or shortness of breath Denies sore throat, cough, rhinorrhea Patient lives alone at home and ambulates with a walker. Reports adherence to her medications. Denies smoking, alcohol or illicit drug use Does not use oxygen or CPAP/BiPAP Allergies Allergy/AdvReac Type Severity Reaction Status Date / Time Quinolones Allergy Intermediate HIVES Verified 11/17/24 17:13 dabigatran etexilate Allergy Unknown ON Verified 11/17/24 17:13 [employer] MED LIST metronidazole AdvReac Intermediate GI SYMPTOMS Verified 11/17/24 17:13 sulfamethoxazole AdvReac Mild GI SYMPTOMS Verified 11/17/24 17:13 trimethoprim AdvReac Mild GI SYMPTOMS Verified 11/17/24 17:13 Home Medications Medication Instructions Recorded Confirmed Type aspirin 325 mg tablet 325 mg PO QAM #100 tabs 01/28/19 11/17/24 History levothyroxine 75 mcg capsule 75 mcg PO DAILYBB 03/14/19 11/17/24 History amlodipine 10 mg tablet 10 mg PO QDD #90 tabs 03/21/20 11/17/24 Rx diclofenac sodium 1 % topical gel 2 g topical QID PRN Pain 05/27/21 11/17/24 History cyanocobalamin (vitamin B-12) 1,000 mcg PO Q OTHER DAY 07/18/22 11/17/24 History 1,000 mcg tablet multivitamin with minerals 1 tab PO DAILY 07/18/22 11/17/24 History (Multiple Vitamin-Minerals tablet) calcium 600 mg (as 1 tab PO DAILY 11/27/23 11/17/24 History carbonate)-vitamin D3 10 mcg (400 unit) tablet (Calcium 600 + D(3)) peg 400-propylene glycol 0.4 %-0.3 1 drp OPB QID 11/27/23 11/17/24 History % eye drops (Systane Ultra) vit C 250 mg-vit E 90 mg-zinc 40 2 tab PO QAM 11/27/23 11/17/24 History mg-copper 1 cl-zbuhcy-tedgbr capsule (PreserVision AREDS-2) amiodarone 200 mg tablet 200 mg PO QDD #90 tabs 05/11/24 11/17/24 Rx furosemide 40 mg tablet 40 mg PO QAM #90 tabs 06/02/24 11/17/24 Rx metoprolol succinate 50 mg 50 mg PO BID #180 tabs 07/14/24 11/17/24 Rx tablet,extended release 24 hr L.acidop,casei,lactis,rham-B.lact,nicole 2 cap PO QAM 08/10/24 11/17/24 History 625 mg (10 billion cell) capsule (Advanced Probiotic) magnesium oxide 400 mg PO QAM 08/10/24 11/17/24 History potassium gluconate 595 mg (99 mg) 595 mg PO QAM 08/10/24 11/17/24 History tablet buspirone 5 mg tablet 5 mg PO BID PRN Anxiety 11/17/24 11/17/24 History methenamine hippurate 1 gram tablet 1 g PO BID 11/17/24 11/17/24 History Past Med/Surg History Problem List Complicated UTI (urinary tract infection) tx for UTI (finished abx 07/24/24) Chronic kidney disease, stage 3a Aortic insufficiency Mitral regurgitation Bilateral pleural effusion (Acute) Paroxysmal atrial fibrillation Anemia (Acute) Hypothyroidism (HFpEF) heart failure with preserved ejection fraction On amiodarone therapy Hypertension Medical History Acute UTI Renal colic Hydronephrosis Right ureteral stone High serum calcium 01/2024 Kidney stone Leukocytosis Failure of outpatient treatment Generalized weakness Macular degeneration Cat scratch 02/17/2024 Stage 3b chronic kidney disease (CKD) Pulmonary hypertension RSVP 40-50mmHg per 04/2024 ECHO Heart valve disease 04/2024 ECHO: mild-mod AR, mod MR, mild TR CHIQUITA (generalized anxiety disorder) PVD (peripheral vascular disease) Hyperlipidemia SIADH (syndrome of inappropriate ADH production) usually takes salt tab; has been off since 06/27/24 [facility] admission History of recent hospitalization [facility] 06/25-06/27/24: dx: acute UTI, R ureteric stone (stent placement 06/25/24) acute on chronic CHF, acute hypoxemic resp failure Urinary tract infection Infection of wound hematoma H/O- 2016 HTN (hypertension) On amiodarone therapy Hypothyroidism History of anemia no current issues Hx of pleural effusion (2021) seen most recently on abd/pelvis CT 06/25/24 Chronic kidney disease, stage 3a IIIa/IIIb per chart review Macular degeneration Kidney stones Hx of congestive heart failure Paroxysmal atrial fibrillation controlled w/ amiodarone - follows w/ Dr Canela Hx of recurrent urinary tract infection completed abx 07/24/24 Pulmonary edema seen most recently abd/pelvis CT 06/25/24 Elevated brain natriuretic peptide (BNP) level hx of Shortness of breath mild, w/ exertion Chronic heart failure with preserved ejection fraction 05/02/24 ECHO: Grade II DD c/w marked CHF; EF 55-60% Atypical chest pain hx - denies current issues GERD (gastroesophageal reflux disease) Pneumonia hx- no issues since ~2021 per pt Diverticulitis h/o > 2019 Surgical History History of cystoscopy cysto, R ureteral stent 06/25/24: MAC without issue Hx of tubal ligation History of umbilical hernia repair incarcerated - unknown age Hx of hernia repair right inguinal 2012 Hx of cholecystectomy Hx of hysterectomy Family History Mother Stroke Social History Smoking Status: Never smoker Second Hand Exposure: No; Do You Dip or Chew Tobacco: No; Hx Alcohol Use: No Hx Substance Use: No Preferred Language: Singaporean Communication Ability: Effective Sole Cutter Required: No Beliefs That Will Affect Care: None marital status: Current Living Situation: Alone Current Living Situation Comment: Has an aide who comes over current occupational status: retired How many Children do You have: 3 Feels Safe at Home: Yes Assistive Devices: Walker Review of Systems Review of Systems: All systems reviewed & are unremarkable except as noted in HPI & below Physical Exam Constitutional: + well hydrated; no acute distress Thin elderly woman Eyes: PERRL, conjunctivae normal, anicteric sclerae ENMT: external ear and nose normal, oropharynx normal Respiratory: normal respiratory effort; no respiratory distress Diminished breath sounds lung bases. No wheeze Cardiovascular: Rate/Rhythm: regular rate and regular rhythm Gastrointestinal (Abdomen): Soft, +tenderness over central and RLQ, normal bowel sounds Musculoskeletal: +pedal edema Neurologic: PERRL, EOMI, accommodation nl, no face palsy, no dysarthria Psychiatric: A+Ox3, euthymic affect Results & Data Results & Data Vital Signs (Past 12 Hours) Vital Signs Temp Pulse Resp BP Pulse Ox O2 Del Method 11/17/24 18:15 63 23 144/60 H 96 11/17/24 18:09 61 19 138/58 L 96 11/17/24 17:45 148/67 H 11/17/24 17:36 58 L 19 141/58 H 11/17/24 17:15 147/63 H 11/17/24 16:57 58 L 27 H 155/60 H 97 11/17/24 16:48 57 L 18 144/64 H 97 11/17/24 16:39 59 L 20 148/60 H 96 11/17/24 16:27 65 22 150/60 H 11/17/24 16:15 57 L 18 97 11/17/24 16:06 56 L 18 97 11/17/24 15:54 57 L 11/17/24 15:45 60 20 95 11/17/24 15:33 62 22 161/69 H 95 11/17/24 15:19 36.7 C 68 24 152/71 H 95 Room Air Laboratory Results Abnormal lab results 11/17/24 11/17/24 11/17/24 Range/Units 15:49 16:18 16:27 RBC 3.35 L (4.20-5.40) M/uL Hgb 11.0 L (12.0-16.0) g/dl Hct 32.0 L (37.0-47.0) % RDW Std Deviation 49.8 H (36.4-46.3) fL [place] # (Auto) 1.06 H (0.11-0.59) K/uL Sodium 130 L (136-145) mmol/L Chloride 95 L (98-107) mmol/L B-Natriuretic Peptide 282 H (0-100) pg/ml Total Protein 8.4 H (6.0-8.3) gm/dl Urine Protein Trace H (Negative) Ur Leukocyte Esterase 2+ H (Negative) Urine WBC (Auto) >50 H (0-5) /hpf U Hyaline Cast (Auto) 3-5 H (0-2) /lpf Urine Bacteria (Auto) 4+ H (None Seen) Diagnostic Findings CT Abdomen/Pelvis Findings: The liver is diffusely nodular in contour, consistent with cirrhosis. The liver is enlarged measuring 19.7 cm craniocaudal. No definite liver mass lesion is seen on this noncontrast study. The gallbladder has been removed. There is mild bile duct dilatation that is likely due to the postcholecystectomy state. The spleen is of normal size. No focal splenic lesion is evident. There is an unchanged apparent 8 mm cyst in the proximal pancreatic body. Mild pancreatic ductal dilatation is again seen. No pancreatic calcifications are seen. There is no sign of acute pancreatitis. The adrenal glands appear unremarkable. No renal or proximal ureteral calculi are seen. There is unchanged mild dilatation of the right renal collecting system and prominence of the right renal pelvis. There is an unchanged 2-3 mm ovarian vein phlebolith adjacent to the proximal right ureter. No definite renal mass lesion is identified. There is a 1.3 cm right renal cyst The aorta is of normal caliber. No abdominal adenopathy is seen. The stomach appears normal. There is an unchanged small right lower quadrant spigelian hernia containing small bowel loops. There is no sign of small bowel obstruction. There is diverticulosis without evidence of diverticulitis. No free intraperitoneal fluid or air is identified. No distal ureteral or bladder calculi are seen. No obvious bladder mass lesion is evident. The iliac arteries are of normal caliber. No pelvic adenopathy is noted. The uterus has been removed. There is a small left inguinal hernia containing only fat There is atelectasis or scar in both lung bases, as well as possible mild pulmonary edema. There is coronary atherosclerosis. The heart is enlarged. Lumbar scoliosis and degenerative disc disease is seen. No fracture is identified. No focal osseous lesion is seen Impression: 1. Cirrhosis and hepatomegaly 2. Unchanged mild dilatation of the right renal collecting system without visible obstructing lesion. This could be due to intrinsic UPJ obstruction or could be residual from prior obstruction or reflux 3. Unchanged pancreatic ductal dilatation and small pancreatic cyst. This could be due to prior pancreatitis. Intraductal papillary mucinous tumor cannot be excluded 4. Right renal cyst 5. Unchanged right lower quadrant spigelian hernia containing small bowel loops. There is no associated obstruction or strangulation 6. Diverticulosis without evidence of diverticulitis 7. Bilateral lung base atelectasis and possible mild pulmonary edema CXR 1. Cardiomegaly with evidence of congestive failure. 2. Bilateral airspace opacities likely represent mild pulmonary edema. Correlate clinically for evidence of a superimposed infectious/inflammatory pneumonitis. Radiographic follow-up to resolution is recommended. 3. Small pleural effusions. Code Status & VTE Plan Code Status DNR VTE Prophylaxis Plan VTE Prophylaxis will be ordered: Yes (2) Hypertension Hypertension type: primary hypertension Qualified Code(s): I10 - Essential (primary) hypertension (5) Hypothyroidism Hypothyroidism type: unspecified Qualified Code(s): E03.9 - Hypothyroidism, unspecified
[2024-11-17] MEDS ORDERED: busPIRone 5 MG TAB PO PRN (21:07)
[2024-11-17] MEDS: METOPROLOL SUCC 50MG EXT REL TAB PO SCH (22:15)
[2024-11-17 23:11] VITALS: RESP 16
[2024-11-18] MEDS: LEVOTHYROXINE SODIUM 75 MCG TABLET PO SCH (05:42)
[2024-11-18] MEDS: CEFEPIME 2000MG 2,000 MG/20 ML SYR IV SCH (05:42)
[2024-11-18 07:03] LABS: Hematocrit (blood only) 31.2 % (37.0-47.0); Hemoglobin 10.8 g/dl (12.0-16.0); Mean Corpuscular Hemoglobin 33.4 pg (25.0-34.0); Mean Corpuscular Volume 96.6 fL (80.0-100.0); Platelet Count 199 K/uL (130-400); RDW Standard Deviation 49.8 fL (36.4-46.3); Red Blood Count 3.23 M/uL (4.20-5.40); White Blood Count 7.60 K/ul (4.8-10.8)
[2024-11-18 07:30] LABS: Anion Gap 6.0 (3-11); Blood Urea Nitrogen 13.0 mg/dl (6-23); Calcium 9.6 mg/dl (8.6-10.3); Carbon Dioxide 27.0 mmol/L (21-32); Chloride 100.0 mmol/L (98-107); Creatinine Clr Calc Pharmacy 37.2 ml/min; Glucose 94.0 mg/dl (70-99(Fasting)); Magnesium 2.0 mg/dl (1.7-2.4); Potassium 4.0 mmol/L (3.5-5.1); Sodium 133.0 mmol/L (136-145)
[2024-11-18 07:47] LABS: Thyroid Stimulating Hormone 2.931 uIu/ml (0.300-4.500)
--- NOTE | 2024-11-18 08:00 | Hospitalist Progress Note ---
Date of Service November 18, 2024 Assessment & Plan (1) Complicated UTI (urinary tract infection): (2) Hypertension: (3) Paroxysmal atrial fibrillation: (4) Chronic kidney disease, stage 3a: (5) Hypothyroidism: (6) (HFpEF) heart failure with preserved ejection fraction: Plan Ms Yun Carlson is an 84 year old woman with past medical history remarkable for PAF, chronic HFpEF, LBBB, moderate to severe MR, moderate AI, CKD3, hypothyroidism, SIADH, GERD, and other history admitted to [facility] for further evaluation and management of right flank pain and acute cystitis Patient states she had just picked up her new suppressive methenamine, but hasnt started this yet, Discussed urology's suggested plan from prior admission " potential cystoscopy, retrograde pyelogram and ureteral stent placement to maximally decompress the kidney, as there was less hydronephrosis on the CT scan when she had a stent in place" Patient states she would like to complete a course of abx first and start the methenamine to see if that helps her as she does not wish to undergo anything invasive at this itme #Right flank pain, ongoing mild dilation of right renal collecting system #Recurrent Urinary Tract Infections (UTIs) #Hx of MDRO CT AB/P reviewed from 11/17: Unchanged mild dilatation of the right renal collecting system without visible obstructing lesion. This could be due to intrinsic UPJ obstruction or could be residual from prior obstruction or reflux Tylenol prn for analgesia Cefepime IV q12 renally dosed for now Await culture results #Hyponatremia Na is 130, up to 133 repeat bmp in am, continue fluid restriction #Persistent abdominal pain, diarrhea.*imrpoved stool sample negative Follows GI and encouraged continuing their recommendations at this time: 1. Begin a fiber supplement: Fibercon one tab daily (a powder type fiber caused diarrhea in the past). 2. Dulcolax one tab 1-2 times weekly. Warned that this will cause some cramping/diarrhea. 3. Probiotics x 3 months has not helped, would discontinue 4. Pt refused colonoscopy - noted. The prep would be difficult for her. #Paroxysmal atrial fibrillation continue amiodarone and metoprolol Continue full dose asa #Chronic HFpEF #LBBB, prolonged QtC #HTN continue home regimen continue po dosing lasix #CKD (chronic kidney disease), stage III: chronic, stable Avoid nephrotoxic agents as able renally dose abx #hypothyroidism: Chronic, stable TSH wnl Continue levothyroxine #Abnormal CT CT reviewed with following items that require OP follow up -Cirrhosis and hepatomegaly : follows OP GI--pending possible liver biopsy during scheduled EUS -Unchanged pancreatic ductal dilatation and small pancreatic cyst. Pending EUS as OP -Right renal cyst. consider routine op imaging DVT ppx- Lovenox Code status- DNR per discussion with patient Admission and Anticipated Discharge Date Admission Date: November 17, 2024 Subjective NAEO reports improvement in abdominal pain this am denies any new symptoms or concerns does not wish for urologic involvement, wishes to complete a course of abx and start her suppressive therapy Results & Data Results & Data Vital Signs (Past 12 Hours) Vital Signs Temp Pulse Resp BP BP Pulse Ox O2 Del Method 11/17/24 23:11 Room Air 11/17/24 20:55 36.5 C 16 163/62 H 95 Room Air 11/17/24 20:30 59 L 20 115/94 95 11/17/24 20:15 58 L 22 162/67 H 95 Laboratory Results Short CBC 11/17/24 11/18/24 Range/Units 15:49 05:55 WBC 8.23 7.60 (4.8-10.8) K/ul Hgb 11.0 L 10.8 L (12.0-16.0) g/dl Hct 32.0 L 31.2 L (37.0-47.0) % Plt Count 225 199 (130-400) K/uL BMP 11/17/24 11/18/24 15:49 05:55 Sodium 130 L 133 L Potassium 4.0 4.0 Chloride 95 L 100 Carbon Dioxide 26 27 BUN 15 13 Creatinine 1.06 0.89 Glucose 95 94 Calcium 9.7 9.6 Liver Function 11/17/24 Range/Units 15:49 Total Bilirubin 0.5 (0.2-1.0) mg/dl Direct Bilirubin 0.0 (0-0.2) mg/dl AST 19 (13-39) U/L ALT 11 (7-52) U/L Alkaline Phosphatase 91 (34-104) U/L Albumin 4.3 (3.4-5.0) gm/dl Urine 11/17/24 Range/Units 16:27 Urine Color Yellow Urine Appearance Clear (Clear) Urine pH 6.5 (4.5-7.5) Ur Specific [place] 1.014 (1.000-1.030) Urine Protein Trace H (Negative) Urine Glucose (UA) Negative (Negative) Medications Administered Home Medications Medication Instructions Recorded Confirmed Last Taken aspirin 325 mg tablet 325 mg PO QAM #100 tabs 01/28/19 11/17/24 07/28/24 levothyroxine 75 mcg capsule 75 mcg PO DAILYBB 03/14/19 11/17/24 10/02/24 amlodipine 10 mg tablet 10 mg PO QDD #90 tabs 03/21/20 11/17/24 08/02/24 09:00 diclofenac sodium 1 % topical gel 2 g topical QID PRN Pain 05/27/21 11/17/24 cyanocobalamin (vitamin B-12) 1,000 mcg PO Q OTHER DAY 07/18/22 11/17/24 11/16/24 1,000 mcg tablet multivitamin with minerals 1 tab PO DAILY 07/18/22 11/17/24 07/20/24 (Multiple Vitamin-Minerals tablet) calcium 600 mg (as 1 tab PO DAILY 11/27/23 11/17/24 07/20/24 carbonate)-vitamin D3 10 mcg (400 unit) tablet (Calcium 600 + D(3)) peg 400-propylene glycol 0.4 %-0.3 1 drp OPB QID 11/27/23 11/17/24 01/28/24 % eye drops (Systane Ultra) vit C 250 mg-vit E 90 mg-zinc 40 2 tab PO QAM 11/27/23 11/17/24 08/02/24 17:30 mg-copper 1 [id number] capsule (PreserVision AREDS-2) amiodarone 200 mg tablet 200 mg PO QDD #90 tabs 05/11/24 11/17/24 08/02/24 17:30 furosemide 40 mg tablet 40 mg PO QAM #90 tabs 06/02/24 11/17/24 08/02/24 09:30 metoprolol succinate 50 mg 50 mg PO BID #180 tabs 07/14/24 11/17/24 08/02/24 17:30 tablet,extended release 24 hr L.acidop,casei,lactis,rham-B.lact,nicole 2 cap PO QAM 08/10/24 11/17/24 Unknown 625 mg (10 billion cell) capsule (Advanced Probiotic) magnesium oxide 400 mg PO QAM 08/10/24 11/17/24 Unknown potassium gluconate 595 mg (99 mg) 595 mg PO QAM 08/10/24 11/17/24 Unknown tablet buspirone 5 mg tablet 5 mg PO BID PRN Anxiety 11/17/24 11/17/24 Unknown methenamine hippurate 1 gram tablet 1 g PO BID 11/17/24 11/17/24 Unknown Active Medications Generic Name Dose Route Start Last Admin Trade Name Freq PRN Reason Stop Dose Admin Artificial Tears 1 drops 11/18/24 09:00 11/18/24 12:43 Artificial Tears OP 12/18/24 08:59 1 drops QID LINETTE Administration Aspirin 325 mg 11/18/24 09:00 11/18/24 08:14 Aspirin 325 Mg Ectab PO 12/18/24 08:59 325 mg QAM LINETTE Administration Calcium Polycarbophil 625 mg 11/18/24 09:00 11/18/24 08:14 Calcium Polycarbophil 625mg Tab PO 12/18/24 08:59 625 mg QAM LINETTE Administration Calcium/Vitamin D 1 tab 11/18/24 09:00 11/18/24 08:16 Calcium 600mg + Vit D 400 Iu Tab PO 12/18/24 08:59 Not Given DAILY LINETTE Cyanocobalamin 1,000 mcg 11/18/24 09:00 11/18/24 08:14 Cyanocobalamin (B-12) 500 Mcg Tablet PO 12/18/24 08:59 1,000 mcg Q2D LINETTE Administration Enoxaparin Sodium 40 mg 11/18/24 09:00 11/18/24 08:20 Enoxaparin Inj 40 Mg/0.4 Ml Syr SQ 12/18/24 08:59 Not Given Q24H LINETTE Furosemide 40 mg 11/18/24 09:00 11/18/24 08:14 Furosemide 40 Mg Tab PO 12/18/24 08:59 40 mg QAM LINETTE Administration Cefepime HCl 2,000 mg in 20 mls @ 5 mls/min 11/18/24 06:00 11/18/24 05:42 Maxipime 2000mg IV 11/28/24 05:59 5 mls/min Q12H LINETTE Administration Protocol Lactobacillus Acidophilus 1,250 mg 11/18/24 09:00 11/18/24 08:14 Advanced Probiotic 625 Mg Capsule PO 12/18/24 08:59 1,250 mg QAM LINETTE Administration Levothyroxine Sodium 75 mcg 11/18/24 06:30 11/18/24 05:42 Levothyroxine Sodium 75 Mcg Tablet PO 12/18/24 06:29 75 mcg DAILYBB LINETTE Administration Magnesium Oxide 400 mg 11/18/24 09:00 11/18/24 08:14 Magnesium Oxide 400 Mg Tab PO 12/18/24 08:59 400 mg QAM LINETTE Administration Metoprolol Succinate 50 mg 11/17/24 21:07 11/18/24 08:14 Metoprolol Succ 50mg Ext Rel Tab PO 12/17/24 21:06 50 mg BID LINETTE Administration Multivitamins/Minerals 1 tab 11/18/24 09:00 11/18/24 08:14 Cerovite Adv Formula Tab PO 12/18/24 08:59 1 tab DAILY LINETTE Administration Potassium Chloride 20 meq 11/18/24 09:00 11/18/24 08:17 Potassium Chloride Crtab 20 Meq Tabcr PO 12/18/24 08:59 20 meq QAM LINETTE Administration (2) Hypertension Hypertension type: primary hypertension Qualified Code(s): I10 - Essential (primary) hypertension (5) Hypothyroidism Hypothyroidism type: unspecified Qualified Code(s): E03.9 - Hypothyroidism, unspecified
[2024-11-18] MEDS: ASPIRIN 325 MG ECTAB PO SCH (08:14)
[2024-11-18] MEDS: MAGNESIUM OXIDE 400 MG TAB PO SCH (08:14)
[2024-11-18] MEDS: CEROVITE ADV FORMULA TAB PO SCH (08:14)
[2024-11-18] MEDS: FUROSEMIDE 40 MG TAB PO SCH (08:14)
[2024-11-18] MEDS: CALCIUM POLYCARBOPHIL 625MG TAB PO SCH (08:14)
[2024-11-18] MEDS: ADVANCED PROBIOTIC 625 MG CAPSULE PO SCH (08:14)
[2024-11-18] MEDS: CYANOCOBALAMIN (B-12) 500 MCG TABLET PO SCH (08:14)
[2024-11-18] MEDS: CALCIUM 600MG + VIT D 400 IU TAB PO SCH (08:16)
[2024-11-18] MEDS: ENOXAPARIN INJ 40 MG/0.4 ML SYR SQ SCH (08:16)
[2024-11-18] MEDS: POTASSIUM CHLORIDE CRTAB 20 MEQ TABCR PO SCH (08:17)
[2024-11-18] MEDS: ARTIFICIAL TEARS OP SCH (08:21)
[2024-11-18 11:19] LABS: Cdiff Toxin B Gene (2yr or >) Negative Cdiff Gene (Neg)
[2024-11-18 11:51] LABS: Adenovirus F 40/41 PCR Not Detected (NotDetected); Campylobacter PCR Not Detected (NotDetected); Enteroaggregative E.coli(EAEC) Not Detected (NotDetected); Shiga-like Toxin E.coli (STEC) Not Detected (NotDetected); Vibrio species PCR Not Detected (NotDetected)
[2024-11-18] MEDS: AMIODARONE 200 MG TAB PO SCH (16:23)
[2024-11-18] MEDS: ACETAMINOPHEN 325 MG TAB PO PRN (16:24)
[2024-11-19 07:05] VITALS: BP 144/67; PULSE 57; TEMP 98.2; O2SAT 97
[2024-11-19] MEDS ORDERED: GENTAMICIN CONSULT ACTIVE PRN (07:28)
[2024-11-19 08:03] LABS: Hematocrit (blood only) 31.7 % (37.0-47.0); Hemoglobin 10.7 g/dl (12.0-16.0); Mean Corpuscular Hemoglobin 32.8 pg (25.0-34.0); Mean Corpuscular Volume 97.2 fL (80.0-100.0); Platelet Count 185 K/uL (130-400); RDW Standard Deviation 51.8 fL (36.4-46.3); Red Blood Count 3.26 M/uL (4.20-5.40); White Blood Count 7.20 K/ul (4.8-10.8)
[2024-11-19] MEDS: GENTAMICIN SULFATE 260 MG in DEXTROSE 5% 100 ML IV ONE (08:16)
[2024-11-19 08:20] LABS: Anion Gap 6.0 (3-11); Blood Urea Nitrogen 16.0 mg/dl (6-23); Calcium 9.5 mg/dl (8.6-10.3); Carbon Dioxide 27.0 mmol/L (21-32); Chloride 100.0 mmol/L (98-107); Creatinine Clr Calc Pharmacy 36.0 ml/min; Glucose 92.0 mg/dl (70-99(Fasting)); Potassium 4.5 mmol/L (3.5-5.1); Sodium 133.0 mmol/L (136-145)
--- NOTE | 2024-11-19 12:21 | Discharge Summary ---
Discharge Summary Date of Service November 19, 2024 Principal Dx & Hospital Course #1 = Principal Diagnosis (1) Complicated UTI (urinary tract infection): (2) Hypertension: (3) Paroxysmal atrial fibrillation: (4) Chronic kidney disease, stage 3a: (5) Hypothyroidism: (6) (HFpEF) heart failure with preserved ejection fraction: Plan Ms Yun Carlson is an 84 year old woman with past medical history remarkable for PAF, chronic HFpEF, LBBB, moderate to severe MR, moderate AI, CKD3, hypothyroidism, SIADH, GERD, and other history admitted to [facility] for further evaluation and management of right flank pain and acute cystitis Patient states she had just picked up her new suppressive methenamine, but hasnt started this yet, Discussed urology's suggested plan from prior admission " potential cystoscopy, retrograde pyelogram and ureteral stent placement to maximally decompress the kidney, as there was less hydronephrosis on the CT scan when she had a stent in place" Patient states she would like to complete a course of abx first and start the methenamine to see if that helps her as she does not wish to undergo anything invasive at this time. Reviewed susceptibilities, patient with Enterobacter cloacae that is relatively resistant to majority of agents and patient also with documented gi upset with bactrim; therefore discussed with Pharmacy and determined a x1 dose of gentamicin would suffice given relatively uncomplicated infection at this time. Patient received dose without any immediate ADRs. On day of discharge, patient was eating well and denied any abdominal pain. She was instructed to start her methenamine tomorrow for suppressive control. Patient was advised to follow up with urology and discuss if stent would be appropriate to help decompress kidney and perhaps prevent infection further. Patient verbalized understanding #Right flank pain, ongoing mild dilation of right renal collecting system #Recurrent Urinary Tract Infections (UTIs) #Hx of MDRO CT AB/P reviewed from 11/17: Unchanged mild dilatation of the right renal collecting system without visible obstructing lesion. This could be due to intrinsic UPJ obstruction or could be residual from prior obstruction or reflux Tylenol prn for analgesia Cefepime IV q12 renally dosed, however enterobacter cloacae with intermediate resistance s/p gentamicin 260mg IV x 1 Start methanamine daily tommorrow #Hyponatremia improving Na is 130, up to 135 encouraged fluid restriction at home #Persistent abdominal pain, diarrhea.*improved stool sample negative Follows GI and encouraged continuing their recommendations at this time: 1. Begin a fiber supplement: Fibercon one tab daily (a powder type fiber caused diarrhea in the past). 2. Dulcolax one tab 1-2 times weekly. Warned that this will cause some cramping/diarrhea. 3. Probiotics x 3 months has not helped, would discontinue 4. Pt refused colonoscopy - noted. The prep would be difficult for her. #Paroxysmal atrial fibrillation continue amiodarone and metoprolol Continue full dose asa #Chronic HFpEF #LBBB, prolonged QtC #HTN continue home regimen continue po dosing lasix #CKD (chronic kidney disease), stage III: chronic, stable Avoid nephrotoxic agents as able renally dose abx #hypothyroidism: Chronic, stable TSH wnl Continue levothyroxine #Abnormal CT CT reviewed with following items that require OP follow up -Cirrhosis and hepatomegaly : follows OP GI--pending possible liver biopsy during scheduled EUS -Unchanged pancreatic ductal dilatation and small pancreatic cyst. Pending EUS as OP -Right renal cyst. consider routine op imaging Notes For Next Care Provider Consider discussion of stent for decompression of right kidney as suggested previously Medication Changes From Visit none Admission HPI Per Admitting Provider 84 year old woman with past medical history remarkable for PAF, chronic HFpEF, LBBB, moderate to severe MR, moderate AI, CKD3, hypothyroidism, SIADH, GERD, recurrent UTI who presented with worsening abdominal pain. Patient reports she has been having chronic abdominal pain, usually central or lower abdomen associated with diarrhea. In the last 2 days, pain has become significantly increased necessitating presentation to the hospital. Reports she usually only has abdominal pain with her urinary tract infections. Reports frequent, loose bowel movements. Denies nausea, vomiting. Denies urinary frequency, urgency, hematuria. Denied fever, chills, cough, chest pain or shortness of breath Denies sore throat, cough, rhinorrhea Patient lives alone at home and ambulates with a walker. Reports adherence to her medications. Denies smoking, alcohol or illicit drug use Does not use oxygen or CPAP/BiPAP Admission Exam Per Admitting Provider Physical Exam Constitutional: + well hydrated; no acute distress Thin elderly woman Eyes: PERRL, conjunctivae normal, anicteric sclerae ENMT: external ear and nose normal, oropharynx normal Respiratory: normal respiratory effort; no respiratory distress Diminished breath sounds lung bases. No wheeze Cardiovascular: Rate/Rhythm: regular rate and regular rhythm Gastrointestinal (Abdomen): Soft, +tenderness over central and RLQ, normal bowel sounds Musculoskeletal: +pedal edema Neurologic: PERRL, EOMI, accommodation nl, no face palsy, no dysarthria Psychiatric: A+Ox3, euthymic affect Discharge Exam Constitutional WD/WN, vitals as above Respiratory normal respiratory effort, lungs clear to auscultation Cardiovascular RRR, no murmur, no edema Gastrointestinal (Abdomen) normal bowel sounds, soft, nontender, no hepatosplenomegaly Neurologic PERRL, EOMI, accommodation nl, no face palsy, no dysarthria Updated Medication List Medication Instructions Recorded Confirmed Type aspirin 325 mg tablet 325 mg PO QAM #100 tabs 01/28/19 11/17/24 History levothyroxine 75 mcg capsule 75 mcg PO DAILYBB 03/14/19 11/17/24 History amlodipine 10 mg tablet 10 mg PO QDD #90 tabs 03/21/20 11/17/24 Rx diclofenac sodium 1 % topical gel 2 g topical QID PRN Pain 05/27/21 11/17/24 History cyanocobalamin (vitamin B-12) 1,000 mcg PO Q OTHER DAY 07/18/22 11/17/24 History 1,000 mcg tablet multivitamin with minerals 1 tab PO DAILY 07/18/22 11/17/24 History (Multiple Vitamin-Minerals tablet) calcium 600 mg (as 1 tab PO DAILY 11/27/23 11/17/24 History carbonate)-vitamin D3 10 mcg (400 unit) tablet (Calcium 600 + D(3)) peg 400-propylene glycol 0.4 %-0.3 1 drp OPB QID 11/27/23 11/17/24 History % eye drops (Systane Ultra) vit C 250 mg-vit E 90 mg-zinc 40 2 tab PO QAM 11/27/23 11/17/24 History mg-copper 1 [id number] capsule (PreserVision AREDS-2) amiodarone 200 mg tablet 200 mg PO QDD #90 tabs 05/11/24 11/17/24 Rx furosemide 40 mg tablet 40 mg PO QAM #90 tabs 06/02/24 11/17/24 Rx metoprolol succinate 50 mg 50 mg PO BID #180 tabs 07/14/24 11/17/24 Rx tablet,extended release 24 hr L.acidop,casei,lactis,rham-B.lact,nicole 2 cap PO QAM 08/10/24 11/17/24 History 625 mg (10 billion cell) capsule (Advanced Probiotic) magnesium oxide 400 mg PO QAM 08/10/24 11/17/24 History potassium gluconate 595 mg (99 mg) 595 mg PO QAM 08/10/24 11/17/24 History tablet buspirone 5 mg tablet 5 mg PO BID PRN Anxiety 11/17/24 11/17/24 History methenamine hippurate 1 gram tablet 1 g PO BID 11/17/24 11/17/24 History Hospital Stay Data Consultations 11/17/24 17:25 ED Decision to Admit Stat Diagnostic Imagining Performed 11/17/24 15:25 CT abd pelvis wo con Stat Pending Results Patient Have Any Pending Studies at Discharge: No Discharge Instructions Given to Patient (Per Discharging Provider) You were admitted with low abdominal pain and found to have a urinary tract infection. You were given a dose of antibiotic that would clear the infection. You will not be sent home with more antibiotics. You will start your methenamine hippurate 1g daily starting tomorrow morning. Total Time Total Time Spent Total Time Spent (In Minutes): 45
--- NOTE | 2024-11-20 09:44 | Electrocardiogram Report ---
Test Reason : Blood Pressure : */* mmHG Vent. Rate : 55 BPM Atrial Rate : 55 BPM P-R Int : 336 ms QRS Dur : 142 ms QT Int : 516 ms P-R-T Axes : 76 264 46 degrees QTcB Int : 493 ms Sinus bradycardia with 1st degree A-V block Right superior axis deviation Left bundle branch block Abnormal ECG When compared with ECG of 02-Oct-2024 10:34, Sinus rhythm has replaced Wide QRS rhythm Confirmed by Ashley Harrison (Armida) on 11/20/2024 9:44:39 AM Referred By: Confirmed By: Ashley Harrison
== END 2024-11-19 13:15 | disposition home or self-care (01) | DRG 690 ==
LOC: ED 15:17 → SUATTDRO 18:30 → 3E 18:30

== ENCOUNTER 2024-12-07 03:28 | Inpatient (IN) ==
--- NOTE | 2024-12-07 03:50 | Emergency Department Note ---
History of Present Illness General Chief complaint: Illness Stated complaint: Diarrhea Time Seen by Provider: 12/07/24 03:31 History of Present Illness This is an 84-year-old female presenting to the emergency department for evaluation of generalized weakness and diarrhea. The patient was recently seen and evaluated at this facility for a complicated urinary tract infection. She did start Cipro 7 days ago after previously being on several different antibiotics. The patient tested positive for COVID-19 3 days ago on 12/04/2024. She lives at home by herself, although she does have home nursing that comes to the house. Patient feels like her heart is racing. She is without distinct chest pain or shortness of breath. She is not steady on her feet. She had 6 episodes of diarrhea in the past 3 hours, prompting her to come to the ER for evaluation. Home Medications Medication Instructions Recorded Confirmed Type L.acidop,casei,lactis,rham-B.lact,nicole 2 cap PO DAILY 12/07/24 12/07/24 History 625 mg (10 billion cell) capsule (Advanced Probiotic) amiodarone 200 mg tablet 200 mg PO DAILY 12/07/24 12/07/24 History amlodipine 10 mg tablet 10 mg PO DAILY 12/07/24 12/07/24 History aspirin 325 mg tablet 325 mg PO DAILY 12/07/24 12/07/24 History buspirone 5 mg tablet 5 mg PO BID PRN Anxiety 12/07/24 12/07/24 History calcium 600 mg (as 1 tab PO DAILY 12/07/24 12/07/24 History carbonate)-vitamin D3 10 mcg (400 unit) tablet (Calcium 600 + D(3)) cyanocobalamin (vitamin B-12) 1,000 mcg PO Q OTHER DAY 12/07/24 12/07/24 History 1,000 mcg tablet furosemide 40 mg tablet 40 mg PO DAILY 12/07/24 12/07/24 History levothyroxine 75 mcg tablet 75 mcg PO DAILY 12/07/24 12/07/24 History magnesium oxide 400 mg PO DAILY 12/07/24 12/07/24 History methenamine hippurate 1 gram tablet 1 g PO BID 12/07/24 12/07/24 History metoprolol succinate 50 mg 50 mg PO BID 12/07/24 12/07/24 History tablet,extended release 24 hr multivitamin with minerals 1 tab PO DAILY 12/07/24 12/07/24 History peg 400-propylene glycol 0.4 %-0.3 1 drp ophthalmic (eye) QID 12/07/24 12/07/24 History % eye drops (Systane Ultra) potassium gluconate 595 mg (99 mg) 595 mg PO DAILY 12/07/24 12/07/24 History tablet vit C 250 mg-vit E 90 mg-zinc 40 2 tab PO DAILY 12/07/24 12/07/24 History mg-copper 1 gg-slyilv-otymhe capsule (PreserVision AREDS-2) Allergies Allergy/AdvReac Type Severity Reaction Status Date / Time Quinolones Allergy Intermediate HIVES Verified 11/17/24 17:13 dabigatran etexilate Allergy Unknown ON Verified 11/17/24 17:13 [facility] metronidazole AdvReac Intermediate GI SYMPTOMS Verified 11/17/24 17:13 sulfamethoxazole AdvReac Mild GI SYMPTOMS Verified 11/17/24 17:13 trimethoprim AdvReac Mild GI SYMPTOMS Verified 11/17/24 17:13 Past Med/Surg History Problem List (Updated 12/07/24 @ 13:05 by Tod Santizo MD) Hyponatremia Diarrhea (Acute) Weakness (Acute) COVID-19 (Acute) Complicated urinary tract infection (Acute) Sepsis (Acute) Acute UTI (Acute) Complicated UTI (urinary tract infection) tx for UTI (finished abx 07/24/24) Chronic kidney disease, stage 3a Aortic insufficiency Mitral regurgitation Bilateral pleural effusion (Acute) Paroxysmal atrial fibrillation Anemia (Acute) Hypothyroidism (HFpEF) heart failure with preserved ejection fraction On amiodarone therapy Hypertension Medical History Acute UTI Renal colic Hydronephrosis Right ureteral stone High serum calcium 01/2024 Kidney stone Leukocytosis Failure of outpatient treatment Generalized weakness Macular degeneration Cat scratch 02/17/2024 Stage 3b chronic kidney disease (CKD) Pulmonary hypertension RSVP 40-50mmHg per 04/2024 ECHO Heart valve disease 04/2024 ECHO: mild-mod AR, mod MR, mild TR CHIQUITA (generalized anxiety disorder) PVD (peripheral vascular disease) Hyperlipidemia SIADH (syndrome of inappropriate ADH production) usually takes salt tab; has been off since 06/27/24 [facility] admission History of recent hospitalization [facility] 06/25-06/27/24: dx: acute UTI, R ureteric stone (stent placement 06/25/24) acute on chronic CHF, acute hypoxemic resp failure Urinary tract infection Infection of wound hematoma H/O- 2016 HTN (hypertension) On amiodarone therapy Hypothyroidism History of anemia no current issues Hx of pleural effusion (2021) seen most recently on abd/pelvis CT 06/25/24 Chronic kidney disease, stage 3a IIIa/IIIb per chart review Macular degeneration Kidney stones Hx of congestive heart failure Paroxysmal atrial fibrillation controlled w/ amiodarone - follows w/ Dr Canela Hx of recurrent urinary tract infection completed abx 07/24/24 Pulmonary edema seen most recently abd/pelvis CT 06/25/24 Elevated brain natriuretic peptide (BNP) level hx of Shortness of breath mild, w/ exertion Chronic heart failure with preserved ejection fraction 05/02/24 ECHO: Grade II DD c/w marked CHF; EF 55-60% Atypical chest pain hx - denies current issues GERD (gastroesophageal reflux disease) Pneumonia hx- no issues since ~2021 per pt Diverticulitis h/o > 2019 Surgical History History of cystoscopy cysto, R ureteral stent 06/25/24: MAC without issue Hx of tubal ligation History of umbilical hernia repair incarcerated - unknown age Hx of hernia repair right inguinal 2013 Hx of cholecystectomy Hx of hysterectomy Family History Mother Stroke Social History Smoking Status: Never smoker Second Hand Exposure: No; Do You Dip or Chew Tobacco: No; Hx Alcohol Use: No Hx Substance Use: No Preferred Language: Pashto Communication Ability: Effective Receiving Clerk Required: No Beliefs That Will Affect Care: None marital status: Current Living Situation: Alone Current Living Situation Comment: Has an aide who comes over current occupational status: retired How many Children do You have: 3 Feels Safe at Home: Yes Assistive Devices: Denture - Upper, Denture - Lower, Hearing Aid - Bilateral and Walker Review of Systems A total of 10 systems reviewed and were otherwise negative Physical Exam Vital Signs Vital Signs - 24 hr 12/07/24 03:34 12/07/24 03:34 12/07/24 03:59 Temperature 36.5 C Temperature Source Oral Pulse Rate 106 H 110 H Respiratory Rate 20 Respiratory Effort / Characteristics Non-Labored Spontaneous Respiratory Depth Normal Blood Pressure 130/79 Blood Pressure Mean 96 Pulse Oximetry 93 92 Oxygen Delivery Method Room Air Room Air Sepsis Recent Fever Within 48 Hours No Sepsis New/Unexplained Change in Mental Status N/A Sepsis Action Taken by Nursing No Action Required 12/07/24 04:00 12/07/24 04:30 12/07/24 05:00 Temperature Temperature Source Pulse Rate 107 H 104 H 86 Respiratory Rate 20 20 24 Respiratory Effort / Characteristics Respiratory Depth Blood Pressure 131/73 145/72 H 134/78 Blood Pressure Mean 106 99 96 Pulse Oximetry 91 91 90 Oxygen Delivery Method Sepsis Recent Fever Within 48 Hours Sepsis New/Unexplained Change in Mental Status Sepsis Action Taken by Nursing 12/07/24 06:00 Temperature Temperature Source Pulse Rate 98 H Respiratory Rate 24 Respiratory Effort / Characteristics Respiratory Depth Blood Pressure 133/71 Blood Pressure Mean 100 Pulse Oximetry 95 Oxygen Delivery Method Sepsis Recent Fever Within 48 Hours Sepsis New/Unexplained Change in Mental Status Sepsis Action Taken by Nursing VITALS: Vitals are noted on the nurse's note and reviewed by myself. Vital signs stable. GENERAL: Elderly white female who appears pleasant and cooperative HEAD: Normocephalic atraumatic. NECK: Supple without nuchal rigidity. No lymphadenopathy. No thyromegaly. Cervical spine is nontender. HEART: Tachycardic rate with regular rhythm LUNGS: Clear to auscultation bilaterally without wheezes, rales or rhonchi. No retractions or accessory muscle use. ABDOMEN: Positive normal bowel sounds x 4. Soft, nontender, without masses or organomegaly. No guarding or rebound tenderness. MUSCULOSKELETAL: No muscle atrophy, erythema, or edema noted. Full range of motion in all extremities. NEURO: Patient was alert and oriented to person place and time. CN II through XII grossly intact. No focal neurological deficits. GCS 15. Course Administered Medications Amiodarone HCl (Amiodarone 200 Mg Tab) 200 mg PO DAILY LINETTE Stop: 01/06/25 09:24 Last Admin: 12/07/24 10:59 Dose: 200 mg Documented By: BRENT Amlodipine Besylate (Amlodipine Besylate 5 Mg Tab) 10 mg PO DAILY [facility]ETTE Stop: 01/06/25 09:24 Last Admin: 12/07/24 10:59 Dose: 10 mg Documented By: BRENT Artificial Tears (Artificial Tears) 1 drops OP QID LINETTE Stop: 01/06/25 12:59 Last Admin: 12/07/24 19:29 Dose: Not Given Documented By: Admin: 12/07/24 14:26 Dose: 1 drops Documented By: BRENT Aspirin (Aspirin 325 Mg Ectab) 325 mg PO DAILY [facility]TE Stop: 01/06/25 09:24 Last Admin: 12/07/24 10:59 Dose: 325 mg Documented By: BRENT Benzonatate (Benzonatate 100 Mg Capsule) 100 mg PO TID LINETTE Stop: 01/06/25 09:24 Last Admin: 12/07/24 20:41 Dose: 100 mg Documented By: Admin: 12/07/24 14:25 Dose: 100 mg Documented By: Admin: 12/07/24 11:00 Dose: 100 mg Documented By: BRENT Calcium/Vitamin D (Calcium 600mg + Vit D 400 Iu Tab) 1 tab PO DAILY [facility] Stop: 01/06/25 09:44 Last Admin: 12/07/24 11:00 Dose: 1 tab Documented By: BRENT Cyanocobalamin (Cyanocobalamin (B-12) 500 Mcg Tablet) 1,000 mcg PO Q2D@0900 LINETTE Stop: 01/06/25 09:44 Last Admin: 12/07/24 10:59 Dose: 1,000 mcg Documented By: BRENT Enoxaparin Sodium (Enoxaparin Inj 40 Mg/0.4 Ml Syr) 40 mg SQ Q24H [facility]ETTE Stop: 01/06/25 09:59 Last Admin: 12/07/24 10:58 Dose: 40 mg Documented By: BRENT Furosemide (Furosemide 40 Mg Tab) 40 mg PO DAILY [facility]TE Stop: 01/06/25 09:24 Last Admin: 12/07/24 11:00 Dose: 40 mg Documented By: BRENT Meropenem 500 mg/ Syringe 10 mls @ 2 mls/min IV Q8H LINETTE; Protocol Stop: 12/09/24 04:14 Last Admin: 12/07/24 11:53 Dose: 2 mls/min Documented By: Admin: 12/07/24 04:35 Dose: 2 mls/min Documented By: MBL Lactobacillus Acidophilus (Advanced Probiotic 625 Mg Capsule) 625 mg PO DAILY [facility]TE Stop: 01/06/25 09:24 Last Admin: 12/07/24 10:59 Dose: 625 mg Documented By: BRENT Levothyroxine Sodium (Levothyroxine Sodium 75 Mcg Tablet) 75 mcg PO DAILYBB [facility]ETTE Stop: 01/06/25 09:24 Last Admin: 12/07/24 10:59 Dose: 75 mcg Documented By: BRENT Magnesium Oxide (Magnesium Oxide 400 Mg Tab) 400 mg PO DAILY [facility]TE Stop: 01/06/25 09:44 Last Admin: 12/07/24 10:59 Dose: 400 mg Documented By: BRENT Metoprolol Succinate (Metoprolol Succ 50mg Ext Rel Tab) 50 mg PO BID [facility]ETTE Stop: 01/06/25 09:24 Last Admin: 12/07/24 20:40 Dose: 50 mg Documented By: Admin: 12/07/24 11:00 Dose: 50 mg Documented By: BRENT Multivitamins/Minerals (Cerovite Adv Formula Tab) 1 tab PO DAILY [facility]TE Stop: 01/06/25 09:44 Last Admin: 12/07/24 11:00 Dose: 1 tab Documented By: BRENT Discontinued Medications Sodium Chloride (Nss) 500 mls @ 999 mls/hr IV .Q31M ONE Stop: 12/07/24 04:05 Last Infusion: 12/07/24 05:21 Dose: Infused Documented By: KMTika Admin: 12/07/24 04:09 Dose: 999 mls/hr Documented By: FELICITAS Sodium Chloride (Nss) 1,000 mls @ 50 mls/hr IV .Q20H LINETTE Stop: 12/08/24 05:24 Last Infusion: 12/07/24 14:25 Dose: 0 mls/hr Documented By: Admin: 12/07/24 11:00 Dose: 50 mls/hr Documented By: RBENT Non-Formulary Medication (Vit C,V-Lz-Hyshi-Lutein-Zeaxan [Preservision Areds-2]) 2 tab PO DAILY [facility]TE Stop: 01/06/25 09:24 Last Admin: 12/07/24 11:06 Dose: Not Given Documented By: BRENT Medical Decision Making Differential Diagnosis Differential diagnosis includes, but is not limited to: Diarrheal illness, dehydration, C. difficile, myocardial infarction, dysrhythmia, pericarditis, pneumothorax, aortic aneurysm/dissection, DVT/PE, anxiety, GERD, PUD, electrolyte imbalance, thyroid disorder, pneumonia, bronchitis, pancreatitis, and others Laboratory Data 12/07/24 03:35 12/07/24 15:34 Lab Results 12/07/24 12/07/24 12/07/24 Range/Units 03:35 03:38 03:46 WBC 29.15 H (4.8-10.8) K/ul RBC 3.49 L (4.20-5.40) M/uL Hgb 11.2 L (12.0-16.0) g/dl Hct 32.0 L (37.0-47.0) % MCV 91.7 (80.0-100.0) fL MCH 32.1 (25.0-34.0) pg MCHC 35.0 (32.0-36.0) g/dL RDW Std Deviation 45.1 (36.4-46.3) fL RDW Coeff of Ursula 13.4 (11.5-14.5) % Plt Count 412 H (130-400) K/uL MPV 9.2 L (9.4-12.4) fL Immature Gran % (Auto) 1.7 % Neut % (Auto) 81.2 % Lymph % (Auto) 4.6 % Saunders % (Auto) 12.3 % Eos % (Auto) 0.0 % Baso % (Auto) 0.2 % Neut # (Auto) 23.62 H (1.40-6.50) K/uL Lymph # (Auto) 1.35 (1.20-3.40) K/uL Saunders # (Auto) 3.59 H (0.11-0.59) K/uL Eos # (Auto) 0.01 (0.00-0.50) K/uL Baso # (Auto) 0.07 (0.00-0.20) K/uL Immature Gran # (Auto) 0.51 H (0.01-0.20) K/uL RBC Morphology Unremarkable Sodium 121 L (136-145) mmol/L Potassium 4.5 (3.5-5.1) mmol/L Chloride 87 L (98-107) mmol/L Carbon Dioxide 24 (21-32) mmol/L Anion Gap 10 (3-11) BUN 30 H (6-23) mg/dl Creatinine 1.06 (0.6-1.2) mg/dl Est Cr Clr Drug Dosing 32.9 ml/min eGFR 51.16 BUN/Creatinine Ratio 28.3 H (10-20) Glucose 117 H (70-99(Fasting)) mg/dl Lactate 1.5 (0.4-2.0) mmol/L Calcium 10.3 (8.6-10.3) mg/dl Magnesium 2.1 (1.7-2.4) mg/dl Total Bilirubin 0.4 (0.2-1.0) mg/dl Direct Bilirubin 0.1 (0-0.2) mg/dl AST 25 (13-39) U/L ALT 22 (7-52) U/L Alkaline Phosphatase 118 H (34-104) U/L Troponin I High Sens 13.1 (0-14) pg/ml B-Natriuretic Peptide 533 H (0-100) pg/ml Total Protein 8.2 (6.0-8.3) gm/dl Albumin 3.8 (3.4-5.0) gm/dl Procalcitonin 0.09 (0-0.5) ng/ml TSH 0.795 (0.300-4.500) uIu/ml Urine Color Urine Appearance (Clear) Urine pH (4.5-7.5) Ur Specific [place] (1.000-1.030) Urine Protein (Negative) Urine Glucose (UA) (Negative) Urine Ketones (Negative) Urine Blood (Negative) Urine Nitrite (Negative) Urine Bilirubin (Negative) Urine Urobilinogen (Negative) Ur Leukocyte Esterase (Negative) Urine WBC (Auto) (0-5) /hpf Urine RBC (Auto) (0-2) /hpf U Hyaline Cast (Auto) (0-2) /lpf U Epithel Cells (Auto) (0-2) /hpf Urine Bacteria (Auto) (None Seen) Hyaline Casts (None Presnt) /lpf Urine Osmolality (500-800) mOsm/kg Ur Random Sodium mmol/L Urine Comment Stl C. cayetanensis PCR (NotDetected) Stool Rotavirus A PCR (NotDetected) Stl Adenov F 40/41 PCR (NotDetected) Stool Astrovirus (PCR) (NotDetected) Stool Campylobacter PCR (NotDetected) Stl C. diff Tox B Gene (Neg) Stl C. diff 027-NAP1-BI Stool Cryptosporidium PCR (NotDetected) Stl E.coli Shiga Tox PCR (NotDetected) Stl Enterotoxigenic E PCR (NotDetected) Stool EPEC (PCR) (NotDetected) Stool EAEC (PCR) (NotDetected) Stl E. histolytica PCR (NotDetected) Stool Giardia Lamblia PCR (NotDetected) Stool Salmonella PCR (NotDetected) Stool Sapovirus (PCR) (NotDetected) Stl P. shigelloides PCR (NotDetected) Stl Shigella/EIEC PCR (NotDetected) St Y.enterocolitica PCR (NotDetected) Stool Vibrio (PCR) (NotDetected) Stl Vibrio cholerae PCR (NotDetected) Stl Norovirus GI/GII PCR (NotDetected) SARS-CoV-2 (PCR) (Negative) Influenza Type A (PCR) (Neg) Influenza Type B (PCR) (Neg) RSV (RT-PCR) (Neg) 12/07/24 12/07/24 12/07/24 Range/Units 03:55 04:05 04:10 WBC (4.8-10.8) K/ul RBC (4.20-5.40) M/uL Hgb (12.0-16.0) g/dl Hct (37.0-47.0) % MCV (80.0-100.0) fL MCH (25.0-34.0) pg MCHC (32.0-36.0) g/dL RDW Std Deviation (36.4-46.3) fL RDW Coeff of Ursula (11.5-14.5) % Plt Count (130-400) K/uL MPV (9.4-12.4) fL Immature Gran % (Auto) % Neut % (Auto) % Lymph % (Auto) % Saunders % (Auto) % Eos % (Auto) % Baso % (Auto) % Neut # (Auto) (1.40-6.50) K/uL Lymph # (Auto) (1.20-3.40) K/uL Saunders # (Auto) (0.11-0.59) K/uL Eos # (Auto) (0.00-0.50) K/uL Baso # (Auto) (0.00-0.20) K/uL Immature Gran # (Auto) (0.01-0.20) K/uL RBC Morphology Sodium (136-145) mmol/L Potassium (3.5-5.1) mmol/L Chloride (98-107) mmol/L Carbon Dioxide (21-32) mmol/L Anion Gap (3-11) BUN (6-23) mg/dl Creatinine (0.6-1.2) mg/dl Est Cr Clr Drug Dosing ml/min eGFR BUN/Creatinine Ratio (10-20) Glucose (70-99(Fasting)) mg/dl Lactate (0.4-2.0) mmol/L Calcium (8.6-10.3) mg/dl Magnesium (1.7-2.4) mg/dl Total Bilirubin (0.2-1.0) mg/dl Direct Bilirubin (0-0.2) mg/dl AST (13-39) U/L ALT (7-52) U/L Alkaline Phosphatase (34-104) U/L Troponin I High Sens (0-14) pg/ml B-Natriuretic Peptide (0-100) pg/ml Total Protein (6.0-8.3) gm/dl Albumin (3.4-5.0) gm/dl Procalcitonin (0-0.5) ng/ml TSH (0.300-4.500) uIu/ml Urine Color Yellow Urine Appearance Cloudy A (Clear) Urine pH 5.5 (4.5-7.5) Ur Specific [place] 1.018 (1.000-1.030) Urine Protein 2+ H (Negative) Urine Glucose (UA) Negative (Negative) Urine Ketones Trace H (Negative) Urine Blood Negative (Negative) Urine Nitrite Negative (Negative) Urine Bilirubin Negative (Negative) Urine Urobilinogen Negative (Negative) Ur Leukocyte Esterase 2+ H (Negative) Urine WBC (Auto) >50 H (0-5) /hpf Urine RBC (Auto) 3-5 H (0-2) /hpf U Hyaline Cast (Auto) 11-20 H (0-2) /lpf U Epithel Cells (Auto) 6-10 H (0-2) /hpf Urine Bacteria (Auto) None Seen (None Seen) Hyaline Casts Present A (None Presnt) /lpf Urine Osmolality 359 L (500-800) mOsm/kg Ur Random Sodium 21 mmol/L Urine Comment Stl C. cayetanensis PCR (NotDetected) Stool Rotavirus A PCR (NotDetected) Stl Adenov F PCR (NotDetected) Stool Astrovirus (PCR) (NotDetected) Stool Campylobacter PCR (NotDetected) Stl C. diff Tox B Gene (Neg) Stl C. diff 027-NAP1-BI Stool Cryptosporidium PCR (NotDetected) Stl E.coli Shiga Tox PCR (NotDetected) Stl Enterotoxigenic E PCR (NotDetected) Stool EPEC (PCR) (NotDetected) Stool EAEC (PCR) (NotDetected) Stl E. histolytica PCR (NotDetected) Stool Giardia Lamblia PCR (NotDetected) Stool Salmonella PCR (NotDetected) Stool Sapovirus (PCR) (NotDetected) Stl P. shigelloides PCR (NotDetected) Stl Shigella/EIEC PCR (NotDetected) St Y.enterocolitica PCR (NotDetected) Stool Vibrio (PCR) (NotDetected) Stl Vibrio cholerae PCR (NotDetected) Stl Norovirus GI/GII PCR (NotDetected) SARS-CoV-2 (PCR) POSITIVE A (Negative) Influenza Type A (PCR) Negative (Neg) Influenza Type B (PCR) Negative (Neg) RSV (RT-PCR) Negative (Neg) 12/07/24 Range/Units 05:30 WBC (4.8-10.8) K/ul RBC (4.20-5.40) M/uL Hgb (12.0-16.0) g/dl Hct (37.0-47.0) % MCV (80.0-100.0) fL MCH (25.0-34.0) pg MCHC (32.0-36.0) g/dL RDW Std Deviation (36.4-46.3) fL RDW Coeff of Ursula (11.5-14.5) % Plt Count (130-400) K/uL MPV (9.4-12.4) fL Immature Gran % (Auto) % Neut % (Auto) % Lymph % (Auto) % Saunders % (Auto) % Eos % (Auto) % Baso % (Auto) % Neut # (Auto) (1.40-6.50) K/uL Lymph # (Auto) (1.20-3.40) K/uL Saunders # (Auto) (0.11-0.59) K/uL Eos # (Auto) (0.00-0.50) K/uL Baso # (Auto) (0.00-0.20) K/uL Immature Gran # (Auto) (0.01-0.20) K/uL RBC Morphology Sodium (136-145) mmol/L Potassium (3.5-5.1) mmol/L Chloride (98-107) mmol/L Carbon Dioxide (21-32) mmol/L Anion Gap (3-11) BUN (6-23) mg/dl Creatinine (0.6-1.2) mg/dl Est Cr Clr Drug Dosing ml/min eGFR BUN/Creatinine Ratio (10-20) Glucose (70-99(Fasting)) mg/dl Lactate (0.4-2.0) mmol/L Calcium (8.6-10.3) mg/dl Magnesium (1.7-2.4) mg/dl Total Bilirubin (0.2-1.0) mg/dl Direct Bilirubin (0-0.2) mg/dl AST (13-39) U/L ALT (7-52) U/L Alkaline Phosphatase (34-104) U/L Troponin I High Sens (0-14) pg/ml B-Natriuretic Peptide (0-100) pg/ml Total Protein (6.0-8.3) gm/dl Albumin (3.4-5.0) gm/dl Procalcitonin (0-0.5) ng/ml TSH (0.300-4.500) uIu/ml Urine Color Urine Appearance (Clear) Urine pH (4.5-7.5) Ur Specific [place] (1.000-1.030) Urine Protein (Negative) Urine Glucose (UA) (Negative) Urine Ketones (Negative) Urine Blood (Negative) Urine Nitrite (Negative) Urine Bilirubin (Negative) Urine Urobilinogen (Negative) Ur Leukocyte Esterase (Negative) Urine WBC (Auto) (0-5) /hpf Urine RBC (Auto) (0-2) /hpf U Hyaline Cast (Auto) (0-2) /lpf U Epithel Cells (Auto) (0-2) /hpf Urine Bacteria (Auto) (None Seen) Hyaline Casts (None Presnt) /lpf Urine Osmolality (500-800) mOsm/kg Ur Random Sodium mmol/L Urine Comment Stl C. cayetanensis PCR Not Detected (NotDetected) Stool Rotavirus A PCR Not Detected (NotDetected) Stl Adenov F 40/41 PCR Not Detected (NotDetected) Stool Astrovirus (PCR) Not Detected (NotDetected) Stool Campylobacter PCR Not Detected (NotDetected) Stl C. diff Tox B Gene Negative Cdiff Gene (Neg) Stl C. diff 027-NAP1-BI NEGATIVE Stool Cryptosporidium PCR Not Detected (NotDetected) Stl E.coli Shiga Tox PCR Not Detected (NotDetected) Stl Enterotoxigenic E PCR Not Detected (NotDetected) Stool EPEC (PCR) Not Detected (NotDetected) Stool EAEC (PCR) Not Detected (NotDetected) Stl E. histolytica PCR Not Detected (NotDetected) Stool Giardia Lamblia PCR Not Detected (NotDetected) Stool Salmonella PCR Not Detected (NotDetected) Stool Sapovirus (PCR) Not Detected (NotDetected) Stl P. shigelloides PCR Not Detected (NotDetected) Stl Shigella/EIEC PCR Not Detected (NotDetected) St Y.enterocolitica PCR Not Detected (NotDetected) Stool Vibrio (PCR) Not Detected (NotDetected) Stl Vibrio cholerae PCR Not Detected (NotDetected) Stl Norovirus GI/GII PCR Not Detected (NotDetected) SARS-CoV-2 (PCR) (Negative) Influenza Type A (PCR) (Neg) Influenza Type B (PCR) (Neg) RSV (RT-PCR) (Neg) Imaging Data Radiologist's Impression: Chest X-Ray 12/07/24 03:35 EXAM: XR chest 1V portable CLINICAL HISTORY: Sepsis TECHNIQUE: Radiograph of chest was acquired. COMPARISON: 06/25/2024 05:46:00 [employer] FINDINGS: Rotated radiograph. Pulmonary Parenchyma: Prominent bilateral windy with perihilar and basal accentuated broncho vascular markings. Right costophrenic angle appears clear. Left costophrenic angle and cardiac silhouette cannot be commented upon due to rotated radiograph. Heart and Mediastinum: No mediastinal widening or masses. No hilar or mediastinal lymphadenopathy. Bony Thorax: The bony thorax appears intact without fractures or deformities. Soft Tissues: Soft tissues overlying the chest wall are unremarkable. IMPRESSION: 1. Interval resolution of right costophrenic angle blunting. Rest of the findings consistent with previous radiograph. Electronically signed by Guille Stokes 12-07-2024 05:12 AM MDM Narrative Physical exam and history were performed. Nursing notes, EMR, and Medication List were personally reviewed. No social concerns were identified as barriers to patients care. History was provided by the Patient and EMS. Patient appears to have weakness, diarrhea, and palpitations. IV access was established and labs were obtained. Patient was hydrated with normal saline. Stool studies were ordered and septic workup was begun as she has had recent infection. Patient's blood work is as above and was reviewed. She has a markedly elevated white count of 29,000 with neutrophil count of 23,000. She does not have significant anemia. Sodium is low at 121. Glucose is 117. Transaminases are not diagnostic. Lactic x 1 is negative with blood cultures pending. Patient's troponin x 1 is negative. She is with an elevated BNP at 533. COVID testing did return POSITIVE. Urine is highly suggestive of infection on a catheter obtained specimen. Patient appears to be quite complicated. She has history of recent resistant UTI, and urosepsis is high on the differential. She does have recent urine cultures, and I did review these with pharmacy, and we will start the patient on IV meropenem. Patient was gently hydrated with normal saline to not exacerbate her CHF. Additionally I do suspect that she may be somewhat fluid deficient from diarrhea, however low sodium and context of SIADH from sepsis is also concerning. Additional fluids will be at the discretion of the hospitalist team. Escalation of care was considered, and felt to be necessary. The patient has concerning labs and recent history. Case was discussed with my attending, as well as the on-call hospitalist service. Please see their dictation for further patient course, plan, disposition. The chart was completed utilizing [employer] Voice Recognition Software. Grammatical errors, random word insertions, pronoun errors, and incomplete sentences are an occasional consequence of this system due to software limitations, ambient noise, and hardware issues. Any formal questions or concerns about the content, text, or information contained within the body of this dictation should be directly addressed to the provider for clarification. Impression & Plan Sepsis, Complicated urinary tract infection, COVID-19, Weakness, Diarrhea Discharge Plan Visit Data Chief Complaint: Illness Stated Complaint: Diarrhea ED Provider: [facility] ED Midlevel Provider: Wenceslao Cowan Discharge Problem: Sepsis, Complicated urinary tract infection, COVID-19, Weakness, Diarrhea Patient Disposition: Admitted As Inpatient Condition: Fair Discharge Instructions Interventions: ED Discharge Assessment Last Done: 12/07/24 20:49
[2024-12-07 04:03] LABS: Hematocrit (blood only) 32.0 % (37.0-47.0); Hemoglobin 11.2 g/dl (12.0-16.0); Mean Corpuscular Hemoglobin 32.1 pg (25.0-34.0); Mean Corpuscular Volume 91.7 fL (80.0-100.0); Platelet Count 412 K/uL (130-400); RDW Standard Deviation 45.1 fL (36.4-46.3); Red Blood Count 3.49 M/uL (4.20-5.40); White Blood Count 29.15 K/ul (4.8-10.8)
[2024-12-07] MEDS: SODIUM CHLORIDE 0.9% 500 ML IV ONE (04:09)
[2024-12-07 04:22] LABS: Alanine Aminotransferase 22.0 U/L (7-52); Alkaline Phosphatase 118.0 U/L (34-104); Anion Gap 10.0 (3-11); Bilirubin,Total 0.4 mg/dl (0.2-1.0); Blood Urea Nitrogen 30.0 mg/dl (6-23); Calcium 10.3 mg/dl (8.6-10.3); Carbon Dioxide 24.0 mmol/L (21-32); Chloride 87.0 mmol/L (98-107); Creatinine Clr Calc Pharmacy 32.9 ml/min; Glucose 117.0 mg/dl (70-99(Fasting)); Magnesium 2.1 mg/dl (1.7-2.4); Potassium 4.5 mmol/L (3.5-5.1); Sodium 121.0 mmol/L (136-145); Total Protein 8.2 gm/dl (6.0-8.3)
[2024-12-07 04:26] LABS: Immature Granulocytes # (auto) 0.51 K/uL (0.01-0.20); Immature Granulocytes % (auto) 1.7 %; RBC Morphology Unremarkable
[2024-12-07] MEDS: MEROPENEM 500 MG in SYRINGE 0 ML IV SCH (04:35)
[2024-12-07 04:37] LABS: Thyroid Stimulating Hormone 0.795 uIu/ml (0.300-4.500)
[2024-12-07 04:45] LABS: Appearance Urine Cloudy (Clear); Bacteria Urine Automated None Seen (None Seen); Glucose Urine UA Negative (Negative); WBC Urine Automated >50 /hpf (0-5)
[2024-12-07 04:56] LABS: Influenza A virus by PCR Negative (Neg); Influenza B virus by PCR Negative (Neg); SARS CoV2 RNA(COVID-19) Ceph POSITIVE (Negative)
--- NOTE | 2024-12-07 05:13 | XRay Report ---
EXAM: XR chest 1V portable CLINICAL HISTORY: Sepsis TECHNIQUE: Radiograph of chest was acquired. COMPARISON: 06/25/2024 05:46:00 IMPLEMENTATION PROJECT COORDINATOR FINDINGS: Rotated radiograph. Pulmonary Parenchyma: Prominent bilateral windy with perihilar and basal accentuated broncho vascular markings. Right costophrenic angle appears clear. Left costophrenic angle and cardiac silhouette cannot be commented upon due to rotated radiograph. Heart and Mediastinum: No mediastinal widening or masses. No hilar or mediastinal lymphadenopathy. Bony Thorax: The bony thorax appears intact without fractures or deformities. Soft Tissues: Soft tissues overlying the chest wall are unremarkable. IMPRESSION: 1. Interval resolution of right costophrenic angle blunting. Rest of the findings consistent with previous radiograph. Electronically signed by Guille Stokes 12-07-2024 05:12 AM
[2024-12-07 06:42] LABS: Cdiff Toxin B Gene (2yr or >) Negative Cdiff Gene (Neg)
[2024-12-07 07:15] LABS: Adenovirus F 40/41 PCR Not Detected (NotDetected); Campylobacter PCR Not Detected (NotDetected); Enteroaggregative E.coli(EAEC) Not Detected (NotDetected); Shiga-like Toxin E.coli (STEC) Not Detected (NotDetected); Vibrio species PCR Not Detected (NotDetected)
--- NOTE | 2024-12-07 07:42 | History & Physical Report ---
Date of Service December 07, 2024 Assessment & Plan (1) Complicated urinary tract infection: Plan: 84-year-old female past medical significant for SIADH, hypothyroidism, hyperlipidemia, peripheral vascular disease, chronic heart failure with preserved ejection fraction, atrial fibrillation, hypertension, venous insufficiency, macular degeneration, GERD, CKD stage IIIb, history of symptomatic anemia, history of aspiration pneumonitis, history of generalized anxiety disorder, lives alone at home, ambulates with a walker comes because of weakness, dry cough and diarrhea. Patient was recently in the hospital and treated for complicated UTI. She has multidrug-resistant UTI. She she received 1 dose of gentamicin before discharge. Patient was tested positive for COVID on Sunday 11/26. Having dry cough. Weakness. She also started on Cipro on 11/30/2024 for UTI for 10 days. Yesterday had 6 episodes of diarrhea which prompted her to come to the ER. Patient is very hard of hearing and somewhat difficult to get history. Denies any headache. Denies body aches. Has stuffy nose. No sore throat. Complains of dry mouth and dry throat. Denies chest pain or shortness of breath. No nausea. No abdominal pain. Status post Cramer catheter in the ER. Hemodynamics are okay. Complicated urinary tract infection Recent cultures show multidrug-resistant Enterobacter cloacae complex ER started meropenem which will be continued Status post Cramer Will follow the cultures Follow response Leukocytosis From above Will follow repeat labs Diarrhea Stool studies unremarkable C. difficile negative COVID Diagnosed on 11/26/2024 Supportive care COVID precautions Hyponatremia History of SIADH Presented with sodium of 121 Will follow serial BMPs Currently getting gentle fluids normal saline at 50 mL/h for 1 L Will follow his serum osmolality, urine osmolality and urine sodium levels Slow correction Nephro consult Chronic heart failure with preserved ejection fraction Has some lower extremity edema ,to continue home Lasix Monitor for volume overload Lower extremity edema Continue home Lasix Will check Dopplers Paroxysmal atrial fibrillation On amiodarone and metoprolol full dose aspirin Abnormal EKG Left bundle branch block Prolonged QTc Avoid QT prolonging drugs Follow repeat EKG CKD stage III Creatinine 1.06 We will follow repeat labs Hypothyroidism On Synthyroid Hypertension On amlodipine and metoprolol Monitor Cirrhosis and hepatomegaly pancreatic duct dilatation and small pelvic cyst Follow-up with GI DVT prophylaxis Lovenox Disposition Med/telemetry History of Present Illness Chief Complaint: Weakness, cough and diarrhea Primary Care Provider: Kodi Lizarraga MD 84-year-old female past medical significant for SIADH, hypothyroidism, hyperlipidemia, peripheral vascular disease, chronic heart failure with preserved ejection fraction, atrial fibrillation, hypertension, venous insufficiency, macular degeneration, GERD, CKD stage IIIb, history of symptomatic anemia, history of aspiration pneumonitis, history of generalized anxiety disorder, lives alone at home, ambulates with a walker comes because of weakness, dry cough and diarrhea. Patient was recently in the hospital and treated for complicated UTI. She has multidrug-resistant UTI. She she received 1 dose of gentamicin before discharge. Patient was tested positive for COVID on Sunday 11/26. Having dry cough. Weakness. She also started on Cipro on 11/30/2024 for UTI for 10 days. Yesterday had 6 episodes of diarrhea which prompted her to come to the ER. Patient is very hard of hearing and somewhat difficult to get history. Denies any headache. Denies body aches. Has stuffy nose. No sore throat. Complains of dry mouth and dry throat. Denies chest pain or shortness of breath. No nausea. No abdominal pain. Status post Cramer catheter in the ER. Hemodynamics are okay. Past medical history. As mentioned above Past surgical history. Breast lesion excision. Laparoscopic cholecystectomy. Repair of inguinal hernia. Total abdominal hysterectomy with removal of tubes. Umbilical hernia repair. Social history. No smoking. No alcohol. No drug use. Family history. No family history of file. Allergies Allergy/AdvReac Type Severity Reaction Status Date / Time Quinolones Allergy Intermediate HIVES Verified 11/17/24 17:13 dabigatran etexilate Allergy Unknown ON Verified 11/17/24 17:13 Ed4U MED LIST metronidazole AdvReac Intermediate GI SYMPTOMS Verified 11/17/24 17:13 sulfamethoxazole AdvReac Mild GI SYMPTOMS Verified 11/17/24 17:13 trimethoprim AdvReac Mild GI SYMPTOMS Verified 11/17/24 17:13 Home Medications Medication Instructions Recorded Confirmed Type L.acidop,casei,lactis,rham-B.lact,nicole 2 cap PO DAILY 12/07/24 12/07/24 History 625 mg (10 billion cell) capsule (Advanced Probiotic) amiodarone 200 mg tablet 200 mg PO DAILY 12/07/24 12/07/24 History amlodipine 10 mg tablet 10 mg PO DAILY 12/07/24 12/07/24 History aspirin 325 mg tablet 325 mg PO DAILY 12/07/24 12/07/24 History buspirone 5 mg tablet 5 mg PO BID PRN Anxiety 12/07/24 12/07/24 History calcium 600 mg (as 1 tab PO DAILY 12/07/24 12/07/24 History carbonate)-vitamin D3 10 mcg (400 unit) tablet (Calcium 600 + D(3)) cyanocobalamin (vitamin B-12) 1,000 mcg PO Q OTHER DAY 12/07/24 12/07/24 History 1,000 mcg tablet furosemide 40 mg tablet 40 mg PO DAILY 12/07/24 12/07/24 History levothyroxine 75 mcg tablet 75 mcg PO DAILY 12/07/24 12/07/24 History magnesium oxide 400 mg PO DAILY 12/07/24 12/07/24 History methenamine hippurate 1 gram tablet 1 g PO BID 12/07/24 12/07/24 History metoprolol succinate 50 mg 50 mg PO BID 12/07/24 12/07/24 History tablet,extended release 24 hr multivitamin with minerals 1 tab PO DAILY 12/07/24 12/07/24 History peg 400-propylene glycol 0.4 %-0.3 1 drp ophthalmic (eye) QID 12/07/24 12/07/24 History % eye drops (Systane Ultra) potassium gluconate 595 mg (99 mg) 595 mg PO DAILY 12/07/24 12/07/24 History tablet vit C 250 mg-vit E 90 mg-zinc 40 2 tab PO DAILY 12/07/24 12/07/24 History mg-copper 1 [id number] capsule (PreserVision AREDS-2) Past Med/Surg History Problem List (Updated 12/07/24 @ 05:25 by Wenceslao Cowan, PA-C) Diarrhea (Acute) Weakness (Acute) COVID-19 (Acute) Complicated urinary tract infection (Acute) Sepsis (Acute) Acute UTI (Acute) Complicated UTI (urinary tract infection) tx for UTI (finished abx 07/24/24) Chronic kidney disease, stage 3a Aortic insufficiency Mitral regurgitation Bilateral pleural effusion (Acute) Paroxysmal atrial fibrillation Anemia (Acute) Hypothyroidism (HFpEF) heart failure with preserved ejection fraction On amiodarone therapy Hypertension Medical History Acute UTI Renal colic Hydronephrosis Right ureteral stone High serum calcium 01/2024 Kidney stone Leukocytosis Failure of outpatient treatment Generalized weakness Macular degeneration Cat scratch 02/17/2024 Stage 3b chronic kidney disease (CKD) Pulmonary hypertension RSVP 40-50mmHg per 04/2024 ECHO Heart valve disease 04/2024 ECHO: mild-mod AR, mod MR, mild TR CHIQUITA (generalized anxiety disorder) PVD (peripheral vascular disease) Hyperlipidemia SIADH (syndrome of inappropriate ADH production) usually takes salt tab; has been off since 06/27/24 [facility] admission History of recent hospitalization [facility] 06/25-06/27/24: dx: acute UTI, R ureteric stone (stent placement 06/25/24) acute on chronic CHF, acute hypoxemic resp failure Urinary tract infection Infection of wound hematoma H/O- 2016 HTN (hypertension) On amiodarone therapy Hypothyroidism History of anemia no current issues Hx of pleural effusion (2021) seen most recently on abd/pelvis CT 06/25/24 Chronic kidney disease, stage 3a IIIa/IIIb per chart review Macular degeneration Kidney stones Hx of congestive heart failure Paroxysmal atrial fibrillation controlled w/ amiodarone - follows w/ Dr Canela Hx of recurrent urinary tract infection completed abx 07/24/24 Pulmonary edema seen most recently abd/pelvis CT 06/25/24 Elevated brain natriuretic peptide (BNP) level hx of Shortness of breath mild, w/ exertion Chronic heart failure with preserved ejection fraction 05/02/24 ECHO: Grade II DD c/w marked CHF; EF 55-60% Atypical chest pain hx - denies current issues GERD (gastroesophageal reflux disease) Pneumonia hx- no issues since ~2021 per pt Diverticulitis h/o > 2019 Surgical History History of cystoscopy cysto, R ureteral stent 06/25/24: MAC without issue Hx of tubal ligation History of umbilical hernia repair incarcerated - unknown age Hx of hernia repair right inguinal 2012 Hx of cholecystectomy Hx of hysterectomy Family History Mother Stroke Social History Smoking Status: Never smoker Second Hand Exposure: No; Do You Dip or Chew Tobacco: No; Hx Alcohol Use: No Hx Substance Use: No Preferred Language: [place] Communication Ability: Effective Service Planner Required: No Beliefs That Will Affect Care: None marital status: Current Living Situation: Alone Current Living Situation Comment: Has an aide who comes over current occupational status: retired How many Children do You have: 3 Feels Safe at Home: Yes Assistive Devices: Denture - Upper, Denture - Lower, Hearing Aid - Bilateral and Walker Review of Systems Review of Systems: All systems reviewed & are unremarkable except as noted in HPI & below Physical Exam Physical Exam: General- Not in distress Head- atraumatic Eyes- PERRL. ENT- oropharynx dry Neck- supple, no JVD. Lungs- clear to auscultation no wheezing or crackles Heart- regular rhythm; no murmur, no gallop. Abdomen- normal bowel sounds, soft, nontender, no distension Extremities- b/l lower extremity edema present, no erythema seen Neuro- alert, oriented . hard of hearing. PERRL, no facial palsy; no dysarthria; moves extremities Results & Data Results & Data Vital Signs (Past 12 Hours) Vital Signs Temp Pulse Resp BP Pulse Ox O2 Del Method 12/07/24 07:03 100 H 22 95 12/07/24 07:00 136/71 12/07/24 07:00 136/71 12/07/24 06:54 107 H 95 12/07/24 06:45 98 H 94 12/07/24 06:45 129/72 12/07/24 06:45 129/72 12/07/24 06:30 126/67 12/07/24 06:30 126/67 12/07/24 06:30 126/67 12/07/24 06:30 98 H 24 95 12/07/24 06:00 98 H 24 133/71 95 12/07/24 05:00 86 24 134/78 90 12/07/24 04:30 104 H 20 145/72 H 91 12/07/24 04:00 107 H 20 131/73 91 12/07/24 03:59 92 Room Air 12/07/24 03:34 110 H 12/07/24 03:34 36.5 C 106 H 20 130/79 93 Room Air Diagnostic Findings Laboratory Results WBC 29.15 K/ul (4.8-10.8) H 12/07/24 03:35 RBC 3.49 M/uL (4.20-5.40) L 12/07/24 03:35 Hgb 11.2 g/dl (12.0-16.0) L 12/07/24 03:35 Hct 32.0 % (37.0-47.0) L 12/07/24 03:35 MCV 91.7 fL (80.0-100.0) 12/07/24 03:35 MCH 32.1 pg (25.0-34.0) 12/07/24 03:35 MCHC 35.0 g/dL (32.0-36.0) 12/07/24 03:35 RDW Std Deviation 45.1 fL (36.4-46.3) 12/07/24 03:35 RDW Coeff of Ursula 13.4 % (11.5-14.5) 12/07/24 03:35 Plt Count 412 K/uL (130-400) H 12/07/24 03:35 MPV 9.2 fL (9.4-12.4) L 12/07/24 03:35 Immature Gran % (Auto) 1.7 % 12/07/24 03:35 Neut % (Auto) 81.2 % 12/07/24 03:35 Lymph % (Auto) 4.6 % 12/07/24 03:35 [place] % (Auto) 12.3 % 12/07/24 03:35 Eos % (Auto) 0.0 % 12/07/24 03:35 Baso % (Auto) 0.2 % 12/07/24 03:35 Neut # (Auto) 23.62 K/uL (1.40-6.50) H 12/07/24 03:35 Lymph # (Auto) 1.35 K/uL (1.20-3.40) 12/07/24 03:35 [place] # (Auto) 3.59 K/uL (0.11-0.59) H 12/07/24 03:35 Eos # (Auto) 0.01 K/uL (0.00-0.50) 12/07/24 03:35 Baso # (Auto) 0.07 K/uL (0.00-0.20) 12/07/24 03:35 Immature Gran # (Auto) 0.51 K/uL (0.01-0.20) H 12/07/24 03:35 RBC Morphology Unremarkable 12/07/24 03:35 Sodium 121 mmol/L (136-145) L 12/07/24 03:35 Potassium 4.5 mmol/L (3.5-5.1) 12/07/24 03:35 Chloride 87 mmol/L (98-107) L 12/07/24 03:35 Carbon Dioxide 24 mmol/L (21-32) 12/07/24 03:35 Anion Gap 10 (3-11) 12/07/24 03:35 BUN 30 mg/dl (6-23) H 12/07/24 03:35 Creatinine 1.06 mg/dl (0.6-1.2) 12/07/24 03:35 Est Cr Clr Drug Dosing 32.9 ml/min 12/07/24 03:35 eGFR 51.16 12/07/24 03:35 BUN/Creatinine Ratio 28.3 (10-20) H 12/07/24 03:35 Glucose 117 mg/dl (70-99(Fasting)) H 12/07/24 03:35 Lactate 1.5 mmol/L (0.4-2.0) 12/07/24 03:46 Calcium 10.3 mg/dl (8.6-10.3) 12/07/24 03:35 Magnesium 2.1 mg/dl (1.7-2.4) 12/07/24 03:35 Total Bilirubin 0.4 mg/dl (0.2-1.0) 12/07/24 03:35 Direct Bilirubin 0.1 mg/dl (0-0.2) 12/07/24 03:35 AST 25 U/L (13-39) 12/07/24 03:35 ALT 22 U/L (7-52) 12/07/24 03:35 Alkaline Phosphatase 118 U/L (34-104) H 12/07/24 03:35 Troponin I High Sens 13.1 pg/ml (0-14) 12/07/24 03:35 B-Natriuretic Peptide 533 pg/ml (0-100) H 12/07/24 03:38 Total Protein 8.2 gm/dl (6.0-8.3) 12/07/24 03:35 Albumin 3.8 gm/dl (3.4-5.0) 12/07/24 03:35 Procalcitonin 0.09 ng/ml (0-0.5) 12/07/24 03:35 TSH 0.795 uIu/ml (0.300-4.500) 12/07/24 03:35 Urine Color Yellow 12/07/24 04:05 Urine Appearance Cloudy (Clear) A 12/07/24 04:05 Urine pH 5.5 (4.5-7.5) 12/07/24 04:05 Ur Specific [place] 1.018 (1.000-1.030) 12/07/24 04:05 Urine Protein 2+ (Negative) H 12/07/24 04:05 Urine Glucose (UA) Negative (Negative) 12/07/24 04:05 Urine Ketones Trace (Negative) H 12/07/24 04:05 Urine Blood Negative (Negative) 12/07/24 04:05 Urine Nitrite Negative (Negative) 12/07/24 04:05 Urine Bilirubin Negative (Negative) 12/07/24 04:05 Urine Urobilinogen Negative (Negative) 12/07/24 04:05 Ur Leukocyte Esterase 2+ (Negative) H 12/07/24 04:05 Urine WBC (Auto) >50 /hpf (0-5) H 12/07/24 04:05 Urine RBC (Auto) 3-5 /hpf (0-2) H 12/07/24 04:05 U Hyaline Cast (Auto) 11-20 /lpf (0-2) H 12/07/24 04:05 U Epithel Cells (Auto) 6-10 /hpf (0-2) H 12/07/24 04:05 Urine Bacteria (Auto) None Seen (None Seen) 12/07/24 04:05 Hyaline Casts Present /lpf (None Presnt) A 12/07/24 04:05 Urine Comment 12/07/24 04:05 Stl C. cayetanensis PCR Not Detected (NotDetected) 12/07/24 05:30 Stool Rotavirus A PCR Not Detected (NotDetected) 12/07/24 05:30 Stl Adenov F 40/41 PCR Not Detected (NotDetected) 12/07/24 05:30 Stool Astrovirus (PCR) Not Detected (NotDetected) 12/07/24 05:30 Stool Campylobacter PCR Not Detected (NotDetected) 12/07/24 05:30 Stl C. diff Tox B Gene Negative Cdiff Gene (Neg) 12/07/24 05:30 Stl C. diff [id number] NEGATIVE 12/07/24 05:30 Stool Cryptosporidium PCR Not Detected (NotDetected) 12/07/24 05:30 Stl E.coli Shiga Tox PCR Not Detected (NotDetected) 12/07/24 05:30 Stl Enterotoxigenic E PCR Not Detected (NotDetected) 12/07/24 05:30 Stool EPEC (PCR) Not Detected (NotDetected) 12/07/24 05:30 Stool EAEC (PCR) Not Detected (NotDetected) 12/07/24 05:30 Stl E. histolytica PCR Not Detected (NotDetected) 12/07/24 05:30 Stool Giardia Lamblia PCR Not Detected (NotDetected) 12/07/24 05:30 Stool Salmonella PCR Not Detected (NotDetected) 12/07/24 05:30 Stool Sapovirus (PCR) Not Detected (NotDetected) 12/07/24 05:30 Stl P. shigelloides PCR Not Detected (NotDetected) 12/07/24 05:30 Stl Shigella/EIEC PCR Not Detected (NotDetected) 12/07/24 05:30 St Y.enterocolitica PCR Not Detected (NotDetected) 12/07/24 05:30 Stool Vibrio (PCR) Not Detected (NotDetected) 12/07/24 05:30 Stl Vibrio cholerae PCR Not Detected (NotDetected) 12/07/24 05:30 Stl Norovirus GI/GII PCR Not Detected (NotDetected) 12/07/24 05:30 SARS-CoV-2 (PCR) POSITIVE (Negative) A 12/07/24 03:55 Influenza Type A (PCR) Negative (Neg) 12/07/24 03:55 Influenza Type B (PCR) Negative (Neg) 12/07/24 03:55 RSV (RT-PCR) Negative (Neg) 12/07/24 03:55 Impressions Chest X-Ray 12/07/24 03:35 EXAM: XR chest 1V portable CLINICAL HISTORY: Sepsis TECHNIQUE: Radiograph of chest was acquired. COMPARISON: 06/25/2024 05:46:00 ALTERATIONS SEWER FINDINGS: Rotated radiograph. Pulmonary Parenchyma: Prominent bilateral windy with perihilar and basal accentuated broncho vascular markings. Right costophrenic angle appears clear. Left costophrenic angle and cardiac silhouette cannot be commented upon due to rotated radiograph. Heart and Mediastinum: No mediastinal widening or masses. No hilar or mediastinal lymphadenopathy. Bony Thorax: The bony thorax appears intact without fractures or deformities. Soft Tissues: Soft tissues overlying the chest wall are unremarkable. IMPRESSION: 1. Interval resolution of right costophrenic angle blunting. Rest of the findings consistent with previous radiograph. Electronically signed by Guille Stokes 12-07-2024 05:12 AM ECG Additional Comments: ECG. Right QRS rhythm rate of 106. Left bundle branch block. QTc 541 Code Status & VTE Plan VTE Prophylaxis Plan VTE Prophylaxis will be ordered: Yes
[2024-12-07] MEDS ORDERED: busPIRone 5 MG TAB PO PRN (09:25)
[2024-12-07] MEDS ORDERED: NITROGLYCERIN SL 0.4 MG/TAB TAB SL PRN (09:25)
[2024-12-07] MEDS ORDERED: NON-FORMULARY MEDICATION (Potassium Gluconate 595 mg (99 mg) Tablet) PO SCH (09:25)
[2024-12-07 10:45] LABS: Anion Gap 8.0 (3-11); Blood Urea Nitrogen 25.0 mg/dl (6-23); Calcium 9.4 mg/dl (8.6-10.3); Carbon Dioxide 26.0 mmol/L (21-32); Chloride 91.0 mmol/L (98-107); Creatinine Clr Calc Pharmacy 37.9 ml/min; Glucose 105.0 mg/dl (70-99(Fasting)); Potassium 4.7 mmol/L (3.5-5.1); Sodium 125.0 mmol/L (136-145)
[2024-12-07] MEDS: ENOXAPARIN INJ 40 MG/0.4 ML SYR SQ SCH (10:58)
[2024-12-07] MEDS: MAGNESIUM OXIDE 400 MG TAB PO SCH (10:59)
[2024-12-07] MEDS: LEVOTHYROXINE SODIUM 75 MCG TABLET PO SCH (10:59)
[2024-12-07] MEDS: ADVANCED PROBIOTIC 625 MG CAPSULE PO SCH (10:59)
[2024-12-07] MEDS: CYANOCOBALAMIN (B-12) 500 MCG TABLET PO SCH (10:59)
[2024-12-07] MEDS: AMIODARONE 200 MG TAB PO SCH (10:59)
[2024-12-07] MEDS: ASPIRIN 325 MG ECTAB PO SCH (10:59)
[2024-12-07] MEDS: CALCIUM 600MG + VIT D 400 IU TAB PO SCH (11:00)
[2024-12-07] MEDS: CEROVITE ADV FORMULA TAB PO SCH (11:00)
[2024-12-07] MEDS: BENZONATATE 100 MG CAPSULE PO SCH (11:00)
[2024-12-07] MEDS: METOPROLOL SUCC 50MG EXT REL TAB PO SCH (11:00)
[2024-12-07] MEDS: SODIUM CHLORIDE 0.9% 1,000 ML IV SCH (11:00)
[2024-12-07] MEDS: FUROSEMIDE 40 MG TAB PO SCH (11:00)
[2024-12-07] MEDS: NON-FORMULARY MEDICATION (Vit C,E-Zn-Coppr-Lutein-Zeaxan [Preservision Areds-2] 250-90-40- PO SCH (11:06)
--- NOTE | 2024-12-07 13:02 | Nephrology Consultation ---
Date of Consultation December 07, 2024 Assessment & Plan (1) Hyponatremia: This is acute on chronic problem. 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 For the last 1 week her appetite for solid food has been extremely low as a result of COVID infection. Given her pre-existing hyponatremia she is very susceptible to big drop in serum sodium and this is what happened because of very low solute diet. she does not appear to be volume depleted if anything she has significant edema. given this significant edema I do want to lower the dose of amlodipine to 5 daily no need of normal saline continue oral Lasix 40 daily as she is currently written she really needs to increase her protein intake/solid food intake. fluid limit 1200 mL per day still having significant nausea and given this I would not use salt tablet or urea for now sodium did go up overnight. but she is drinking lots of liquids currently and I expect the next sodium might actually go down again check BMP again around 6:00 pm. she will need BMP Q 12 hour will recommend to do urine sodium urine creatinine UA and urine osmolarity (2) COVID-19: seems to be the precipitating cause for her symptoms and big drop in sodium (3) Complicated urinary tract infection: currently urine culture is pending. She is getting IV meropenem History of Present Illness Reason for Consultation: Hyponatremia Attending Physician: Jimbo Moses MD History of Present Illness 84/F with prior h/o Hyponatremia from SIADH, hypothyroidism, hyperlipidemia, peripheral vascular disease, chronic heart failure with preserved ejection fraction, atrial fibrillation, hypertension, venous insufficiency, CKD stage IIIA, history of symptomatic anemia, history of aspiration pneumonitis, history of generalized anxiety disorder who lives alone at home and ambulates with a walker presented to ED because of weakness, dry cough and diarrhea. Patient was recently in the hospital and treated for complicated UTI from multidrug- resistant UTI. Patient tested positive for COVID on Sunday 11/26. She was Having dry cough. Weakness. She also started on Cipro on 11/30/2024 for UTI for 10 days. Then had 6 episodes of diarrhea which prompted her to come to the ER. Patient is very hard of hearing and somewhat difficult to get history. Denies any headache. Denies body aches. Has stuffy nose. No sore throat. Complains of dry mouth and dry throat. Denies chest pain or shortness of breath. No nausea. No abdominal pain. Status post Lynch catheter in the ER. na was 121 first time and then 6 hrs later 125. Currently feels weak. Has lynch. Not getting NS now but did get 1 liter. Also supposed to get her regular oral lasix 40 daily. ROS--Poor historian. hard of hearing and currently very weak. Allergies Allergy/AdvReac Type Severity Reaction Status Date / Time Quinolones Allergy Intermediate HIVES Verified 11/17/24 17:13 dabigatran etexilate Allergy Unknown ON Verified 11/17/24 17:13 [facility] ([facility] MED LIST metronidazole AdvReac Intermediate GI SYMPTOMS Verified 11/17/24 17:13 sulfamethoxazole AdvReac Mild GI SYMPTOMS Verified 11/17/24 17:13 trimethoprim AdvReac Mild GI SYMPTOMS Verified 11/17/24 17:13 Home Medications Medication Instructions Recorded Confirmed Type L.acidop,casei,lactis,rham-B.lact,nicole 2 cap PO DAILY 12/07/24 12/07/24 History 625 mg (10 billion cell) capsule (Advanced Probiotic) amiodarone 200 mg tablet 200 mg PO DAILY 12/07/24 12/07/24 History amlodipine 10 mg tablet 10 mg PO DAILY 12/07/24 12/07/24 History aspirin 325 mg tablet 325 mg PO DAILY 12/07/24 12/07/24 History buspirone 5 mg tablet 5 mg PO BID PRN Anxiety 12/07/24 12/07/24 History calcium 600 mg (as 1 tab PO DAILY 12/07/24 12/07/24 History carbonate)-vitamin D3 10 mcg (400 unit) tablet (Calcium 600 + D(3)) cyanocobalamin (vitamin B-12) 1,000 mcg PO Q OTHER DAY 12/07/24 12/07/24 History 1,000 mcg tablet furosemide 40 mg tablet 40 mg PO DAILY 12/07/24 12/07/24 History levothyroxine 75 mcg tablet 75 mcg PO DAILY 12/07/24 12/07/24 History magnesium oxide 400 mg PO DAILY 12/07/24 12/07/24 History methenamine hippurate 1 gram tablet 1 g PO BID 12/07/24 12/07/24 History metoprolol succinate 50 mg 50 mg PO BID 12/07/24 12/07/24 History tablet,extended release 24 hr multivitamin with minerals 1 tab PO DAILY 12/07/24 12/07/24 History peg 400-propylene glycol 0.4 %-0.3 1 drp ophthalmic (eye) QID 12/07/24 12/07/24 History % eye drops (Systane Ultra) potassium gluconate 595 mg (99 mg) 595 mg PO DAILY 12/07/24 12/07/24 History tablet vit C 250 mg-vit E 90 mg-zinc 40 2 tab PO DAILY 12/07/24 12/07/24 History mg-copper 1 [id number] capsule (PreserVision AREDS-2) Patient History Medical History Acute UTI Renal colic Hydronephrosis Right ureteral stone High serum calcium 01/2024 Kidney stone Leukocytosis Failure of outpatient treatment Generalized weakness Macular degeneration Cat scratch 02/17/2024 Stage 3b chronic kidney disease (CKD) Pulmonary hypertension RSVP 40-50mmHg per 04/2024 ECHO Heart valve disease 04/2024 ECHO: mild-mod AR, mod MR, mild TR CHIQUITA (generalized anxiety disorder) PVD (peripheral vascular disease) Hyperlipidemia SIADH (syndrome of inappropriate ADH production) usually takes salt tab; has been off since 06/27/24 [facility] admission History of recent hospitalization [facility] 06/25-06/27/24: dx: acute UTI, R ureteric stone (stent placement 06/25/24) acute on chronic CHF, acute hypoxemic resp failure Urinary tract infection Infection of wound hematoma H/O- 2016 HTN (hypertension) On amiodarone therapy Hypothyroidism History of anemia no current issues Hx of pleural effusion (2021) seen most recently on abd/pelvis CT 06/25/24 Chronic kidney disease, stage 3a IIIa/IIIb per chart review Macular degeneration Kidney stones Hx of congestive heart failure Paroxysmal atrial fibrillation controlled w/ amiodarone - follows w/ Dr Canela Hx of recurrent urinary tract infection completed abx 07/24/24 Pulmonary edema seen most recently abd/pelvis CT 06/25/24 Elevated brain natriuretic peptide (BNP) level hx of Shortness of breath mild, w/ exertion Chronic heart failure with preserved ejection fraction 05/02/24 ECHO: Grade II DD c/w marked CHF; EF 55-60% Atypical chest pain hx - denies current issues GERD (gastroesophageal reflux disease) Pneumonia hx- no issues since ~2021 per pt Diverticulitis h/o > 2019 Surgical History History of cystoscopy cysto, R ureteral stent 06/25/24: MAC without issue Hx of tubal ligation History of umbilical hernia repair incarcerated - unknown age Hx of hernia repair right inguinal 2013 Hx of cholecystectomy Hx of hysterectomy Family History Mother Stroke Social History Smoking Status: Never smoker Second Hand Exposure: No; Do You Dip or Chew Tobacco: No; Hx Alcohol Use: No Hx Substance Use: No Preferred Language: German Communication Ability: Effective Shucker Required: No Beliefs That Will Affect Care: None marital status: Current Living Situation: Alone Current Living Situation Comment: Has an aide who comes over current occupational status: retired How many Children do You have: 3 Feels Safe at Home: Yes Assistive Devices: Denture - Upper, Denture - Lower, Hearing Aid - Bilateral and Walker Results & Data Vital Signs (Past 12 Hours) Vital Signs Temp Pulse Pulse Resp BP BP Pulse Ox 12/07/24 12:30 102 H 28 H 131/64 95 12/07/24 11:51 93 H 96 12/07/24 11:42 96 H 95 12/07/24 11:30 98 H 95 12/07/24 11:30 135/63 12/07/24 11:21 98 H 23 94 12/07/24 11:15 100 H 94 12/07/24 11:00 138/66 12/07/24 10:54 93 H 24 96 12/07/24 10:51 99 H 95 12/07/24 10:33 98 H 96 12/07/24 10:30 123/72 12/07/24 10:30 123/72 12/07/24 10:27 97 H 96 12/07/24 10:03 95 H 96 12/07/24 10:00 142/65 H 12/07/24 10:00 142/65 H 12/07/24 10:00 142/65 H 12/07/24 10:00 142/65 H 12/07/24 09:51 99 H 95 12/07/24 09:45 134/91 12/07/24 09:45 134/91 12/07/24 09:42 100 H 23 96 12/07/24 09:30 140/86 12/07/24 09:21 97 H 20 96 12/07/24 09:15 138/69 12/07/24 09:15 98 H 23 96 12/07/24 09:06 91 H 96 12/07/24 08:57 91 H 22 97 12/07/24 08:42 85 21 97 12/07/24 08:33 85 24 97 12/07/24 08:30 128/66 12/07/24 08:30 128/66 12/07/24 08:30 128/66 12/07/24 08:30 128/66 12/07/24 08:15 126/64 12/07/24 08:09 80 22 96 12/07/24 08:08 102 H 12/07/24 08:03 92 H 23 97 12/07/24 08:00 131/69 12/07/24 08:00 131/69 12/07/24 07:57 95 H 96 12/07/24 07:51 98 H 22 96 12/07/24 07:45 122/63 12/07/24 07:45 85 24 96 12/07/24 07:42 84 23 96 12/07/24 07:30 125/68 12/07/24 07:30 125/68 12/07/24 07:30 125/68 12/07/24 07:09 87 24 96 12/07/24 07:03 100 H 22 95 12/07/24 07:00 136/71 12/07/24 07:00 136/71 12/07/24 06:54 107 H 95 12/07/24 06:45 98 H 94 12/07/24 06:45 129/72 12/07/24 06:45 129/72 12/07/24 06:30 126/67 12/07/24 06:30 126/67 12/07/24 06:30 126/67 12/07/24 06:30 98 H 24 95 12/07/24 06:00 98 H 24 133/71 95 12/07/24 05:00 86 24 134/78 90 12/07/24 04:30 104 H 20 145/72 H 91 12/07/24 04:00 107 H 20 131/73 91 12/07/24 03:59 92 12/07/24 03:34 110 H 12/07/24 03:34 36.5 C 106 H 20 130/79 93 O2 Del Method O2 Flow Rate 12/07/24 12:30 Nasal Cannula 2 12/07/24 11:51 12/07/24 11:42 12/07/24 11:30 12/07/24 11:30 12/07/24 11:21 12/07/24 11:15 12/07/24 11:00 12/07/24 10:54 12/07/24 10:51 12/07/24 10:33 12/07/24 10:30 12/07/24 10:30 12/07/24 10:27 12/07/24 10:03 12/07/24 10:00 12/07/24 10:00 12/07/24 10:00 12/07/24 10:00 12/07/24 09:51 12/07/24 09:45 12/07/24 09:45 12/07/24 09:42 12/07/24 09:30 12/07/24 09:21 12/07/24 09:15 12/07/24 09:15 12/07/24 09:06 12/07/24 08:57 12/07/24 08:42 12/07/24 08:33 12/07/24 08:30 12/07/24 08:30 12/07/24 08:30 12/07/24 08:30 12/07/24 08:15 12/07/24 08:09 12/07/24 08:08 12/07/24 08:03 12/07/24 08:00 12/07/24 08:00 12/07/24 07:57 12/07/24 07:51 12/07/24 07:45 12/07/24 07:45 12/07/24 07:42 12/07/24 07:30 12/07/24 07:30 12/07/24 07:30 12/07/24 07:09 12/07/24 07:03 12/07/24 07:00 12/07/24 07:00 12/07/24 06:54 12/07/24 06:45 12/07/24 06:45 12/07/24 06:45 12/07/24 06:30 12/07/24 06:30 12/07/24 06:30 12/07/24 06:30 12/07/24 06:00 12/07/24 05:00 12/07/24 04:30 12/07/24 04:00 12/07/24 03:59 Room Air 12/07/24 03:34 12/07/24 03:34 Room Air Laboratory Results CBC, renal panel
[2024-12-07] MEDS: ARTIFICIAL TEARS OP SCH (14:26)
--- NOTE | 2024-12-07 15:21 | Communication Note ---
Date of Service: December 07, 2024 The patient was seen and examined in emergency room. 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 She received 1 dose of gentamicin before discharge she was status tested positive for COVID on 11/26/2024 and received Cipro from 724 for 10 days. Admitted with continued diarrhea 6 episodes generalized weakness, and also increasing shortness of breath. Noted to have complicated UTI and started on intravenous meropenem and also hyponatremia. She was tested COVID-positive at this time and will not receive any extra medications but will be observed in respiratory precautions to be taken She otherwise remains hemodynamically stable and will have a full progress note tomorrow. Discussed with her about CODE STATUS and she clearly mentioned DNR/DNI. Dr Deborah Moses
[2024-12-07 16:10] LABS: Anion Gap 6.0 (3-11); Blood Urea Nitrogen 24.0 mg/dl (6-23); Calcium 9.3 mg/dl (8.6-10.3); Carbon Dioxide 28.0 mmol/L (21-32); Chloride 91.0 mmol/L (98-107); Creatinine Clr Calc Pharmacy 39.2 ml/min; Glucose 115.0 mg/dl (70-99(Fasting)); Potassium 4.4 mmol/L (3.5-5.1); Sodium 125.0 mmol/L (136-145)
[2024-12-07 22:08] LABS: Anion Gap 8.0 (3-11); Blood Urea Nitrogen 21.0 mg/dl (6-23); Calcium 9.6 mg/dl (8.6-10.3); Carbon Dioxide 28.0 mmol/L (21-32); Chloride 90.0 mmol/L (98-107); Creatinine Clr Calc Pharmacy 37.5 ml/min; Glucose 124.0 mg/dl (70-99(Fasting)); Potassium 4.3 mmol/L (3.5-5.1); Sodium 126.0 mmol/L (136-145)
[2024-12-07 22:19] LABS: A calco-baum cmplx NotReported Not Detected (NotDetected); Bact fragilis Not Reported Not Detected (NotDetected); Blood Culture Id Panel See PCR Comment (NotDetected); C auris Not Reported Not Detected (NotDetected); Calbicans Not Reported Not Detected (NotDetected); Candida glabrata Not Reported Not Detected (NotDetected); Candida krusei Not Reported Not Detected (NotDetected); Cneoformans/gatti Not Reported Not Detected (NotDetected); Cparapsilosis Not Reported Not Detected (NotDetected); Ctropicalis Not Reported Not Detected (NotDetected); E cloacae compx Not Reported Not Detected (NotDetected); Efaecalis Not Reported Not Detected (NotDetected); Efaecium Not Reported Not Detected (NotDetected); Enterobacterales Not Reported Not Detected (NotDetected); Escherichia coli Not Reported Not Detected (NotDetected); H influenzae Not Reported Not Detected (NotDetected); K aerogenes Not Reported Not Detected (NotDetected); Koxytoca Not Reported Not Detected (NotDetected); Kpneumoniae grp Not Reported Not Detected (NotDetected); Lmonocyt Not Reported Not Detected (NotDetected); N meningitidis Not Reported Not Detected (NotDetected); P aeruginosa Not Reported Not Detected (NotDetected); Proteus spp Not Reported Not Detected (NotDetected); Salmonella spp Not Reported Not Detected (NotDetected); Staph lugdunensis Not Reported Not Detected (NotDetected); Staph spp. Not Reported DETECTED (NotDetected); Staphaureus Not Reported DETECTED (NotDetected); Staphepi Not Reported Not Detected (NotDetected); Staphylococcus spp. DETECTED (NotDetected); Stenmaltophilia Not Reported Not Detected (NotDetected); Strep agal(GrpB) Not Reported Not Detected (NotDetected); Strep pneum Not Reported Not Detected (NotDetected); Strep pyog (GrpA) Not Reported Not Detected (NotDetected); Strep spp Not Reported Not Detected (NotDetected)
[2024-12-07 22:34] LABS: mecAC+MREJ Resistant Gene MRSA DETECTED (NotDetected)
[2024-12-07] MEDS ORDERED: VANCOMYCIN CONSULT ACTIVE PRN (22:50)
[2024-12-08] MEDS: VANCOMYCIN HCL 1,250 MG in SODIUM CHLORIDE 0.9% 250 ML IV STA
[2024-12-08 04:05] LABS: Anion Gap 7.0 (3-11); Blood Urea Nitrogen 21.0 mg/dl (6-23); Calcium 9.3 mg/dl (8.6-10.3); Carbon Dioxide 27.0 mmol/L (21-32); Chloride 93.0 mmol/L (98-107); Creatinine Clr Calc Pharmacy 41.5 ml/min; Glucose 125.0 mg/dl (70-99(Fasting)); Potassium 4.3 mmol/L (3.5-5.1); Sodium 127.0 mmol/L (136-145)
[2024-12-08 06:46] LABS: Hematocrit (blood only) 29.4 % (37.0-47.0); Hemoglobin 10.2 g/dl (12.0-16.0); Mean Corpuscular Hemoglobin 32.4 pg (25.0-34.0); Mean Corpuscular Volume 93.3 fL (80.0-100.0); Platelet Count 310 K/uL (130-400); RDW Standard Deviation 47.4 fL (36.4-46.3); Red Blood Count 3.15 M/uL (4.20-5.40); White Blood Count 26.43 K/ul (4.8-10.8)
[2024-12-08 07:04] LABS: Hypersegmented Neutrophils 1+; Immature Granulocytes # (auto) 0.52 K/uL (0.01-0.20); Immature Granulocytes % (auto) 2.0 %; Polychromasia 1+
--- NOTE | 2024-12-08 10:27 | Pharmacy Report ---
Pharmacy PK ABX Note - Date of Service December 08, 2024 - Assessment and Plan Assessment 84 year old F receiving vancomycin and meropenem for positive blood cultures/concerns for UTI. Patient recently hospitalized for complicated UTI, received gentamicin prior to discharge. Was also started on cipro 11/30 x 10 days for UTI per notes. Tested positive for COVID 11/26. Presenting with increased diarrhea and weakness on admission. Blood cultures with Gm positive cocci in clusters, BCID2 positive for MRSA. Urine culture pending. Plan Vancomycin * Loading dose: 1250 mg IV x 1 * Maintenance dose: 1000 mg IV every 24 hours * Regimen is predicted to achieve target AUC/PAVITHRA of 400-600 mg/L.hr * Plan to collect random vancomycin level tomorrow to evaluate current dosing Pharmacy will continue to follow and will adjust dose/frequency as necessary. Thank you. Pharmacy has transitioned to AUC monitoring for vancomycin. AUC/PAVITHRA is the preferred PK/PD target and is associated with decreased risk of nephrotoxicity compared to traditional trough targets.
--- NOTE | 2024-12-08 12:00 | Nephrology Progress Note ---
Date of Service December 08, 2024 Assessment & Plan Admission and Anticipated Discharge Date Admission Date: December 07, 2024 Subjective Assessment & Plan (1) Hyponatremia: This is acute on chronic problem. 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 For the last 1 week her appetite for solid food has been extremely low as a result of COVID infection. Given her pre-existing hyponatremia she is very susceptible to big drop in serum sodium and this is what happened because of very low solute diet. she does not appear to be volume depleted if anything she has significant edema. given this significant edema I do want to lower the dose of amlodipine to 5 daily no need of normal saline continue oral Lasix but raise to 40 twice daily she really needs to increase her protein intake/solid food intake. fluid limit 1200 mL per day still having significant nausea and given this I would not use salt tablet or urea for now na is now 127 so not too far off from her baseline. Can check BMP one daily now. (2) COVID-19: seems to be the precipitating cause for her symptoms and big drop in sodium (3) Complicated urinary tract infection: currently urine culture is pending. She is getting IV meropenem S--no new issues. On 2 liters o2--no worsening. Poor Intake. weak. very hard of hearing and currently very weak. Physical Exam Physical Exam: General- Not in distress. very hard of hearing. weak and frail. HEENT---MM moist. Neck- supple, no JVD. Lungs- clear to auscultation no wheezing or crackles Heart- regular rhythm; no murmur, no gallop. Abdomen- soft, nontender, no distension Extremities- b/l lower extremity edema present Neuro- alert, oriented . hard of hearing. PERRL, no facial palsy; no dysarthria; moves extremities Results & Data Vital Signs (Past 12 Hours) Vital Signs Temp Pulse Pulse Resp BP Pulse Ox Pulse Ox 12/08/24 09:25 93 12/08/24 09:00 79 12/08/24 07:59 36.5 C 84 18 134/76 95 12/08/24 01:30 109 H O2 Del Method O2 Del Method O2 Flow Rate O2 Flow Rate 12/08/24 09:25 Nasal Cannula 2 12/08/24 09:00 12/08/24 07:59 Nasal Cannula 2 12/08/24 01:30
[2024-12-08] MEDS: VANCOMYCIN HCL 1,000 MG/270 ML BAG IV SCH (12:02)
--- NOTE | 2024-12-08 14:25 | Hospitalist Progress Note ---
Date of Service December 08, 2024 Assessment & Plan (1) Complicated urinary tract infection: Plan: 84-year-old female past medical significant for SIADH, hypothyroidism, hyperlipidemia, peripheral vascular disease, chronic heart failure with preserved ejection fraction, atrial fibrillation, hypertension, venous insufficiency, macular degeneration, GERD, CKD stage IIIb, history of symptomatic anemia, history of aspiration pneumonitis, history of generalized anxiety disorder, lives alone at home, ambulates with a walker comes because of weakness, dry cough and diarrhea. Patient was recently in the hospital and treated for complicated UTI. She has multidrug-resistant UTI. She she received 1 dose of gentamicin before discharge. Patient was tested positive for COVID on Sunday 11/26. Having dry cough. Weakness. She also started on Cipro on 11/30/2024 for UTI for 10 days. Yesterday had 6 episodes of diarrhea which prompted her to come to the ER. Patient is very hard of hearing and somewhat difficult to get history. Denies any headache. Denies body aches. Has stuffy nose. No sore throat. Complains of dry mouth and dry throat. Denies chest pain or shortness of breath. No nausea. No abdominal pain. Status post Cramer catheter in the ER. Hemodynamics are okay. MRSA bacteremia 2 out of 2 bottles Complicated urinary tract infection Recent cultures show multidrug-resistant Enterobacter cloacae complex ER started meropenem which will be continued Status post Cramer Urine culture has been negative Blood cultures growing Staph aureusMRSA and she was added with intravenous vancomycin on top of meropenem Infectious disease has been consulted for further recommendation about antibiotic She has been feeling a little better as of today Hyponatremia History of SIADH Presented with sodium of 121 Will follow serial BMPs Currently getting gentle fluids normal saline at 50 mL/h for 1 L Will follow his serum osmolality, urine osmolality and urine sodium levels Slow correction Nephro consult- appreciate nephrology input and recommendation Leukocytosis- secondary to ongoing infection and bacteremia From above Will follow repeat labs Diarrhea Stool studies unremarkable C. difficile negative Likely secondary to recent use of antibiotic for UTI COVID Diagnosed on 11/26/2024 Supportive care COVID precautions No x-ray evidence of COVID-pneumonia will be given cough medicine as needed Chronic heart failure with preserved ejection fraction Has some lower extremity edema ,to continue home Lasix Monitor for volume overload Will continue with the oral Lasix as advised by the stabilizing machine operator Lower extremity edema Continue home Lasix Will check Dopplers Paroxysmal atrial fibrillation On amiodarone and metoprolol full dose aspirin Abnormal EKG Left bundle branch block Prolonged QTc Avoid QT prolonging drugs Follow repeat EKG CKD stage III Creatinine 1.06 We will follow repeat labs Hypothyroidism On Synthyroid Hypertension On amlodipine and metoprolol Monitor Cirrhosis and hepatomegaly pancreatic duct dilatation and small pelvic cyst Follow-up with GI DVT prophylaxis Lovenox Disposition Med/telemetry Admission and Anticipated Discharge Date Admission Date: December 07, 2024 Subjective 12/08/2024 The patient was seen and examined in telemetry unit and in the COVID room She has been feeling little better but remains lethargic Minimal cough without any shortness of breath Review of Systems Review of Systems: all systems reviewed and are unremarkable except as noted below Physical Exam Physical Exam: Lying in bed without any acute distress Constitutional: + ill appearing and + thin Eyes: PERRL, conjunctivae normal, anicteric sclerae ENMT: external ear and nose normal, oropharynx normal Neck: trachea midline, no thyromegaly Respiratory: + respiratory distress ( minimal distres s at rest) Auscultation: + diminished lung sounds and + crackles ( occasional crackles at the bases) Cardiovascular: Rate/Rhythm: regular rate and regular rhythm; not tachycardic Heart Sounds: normal S1, normal S2 and + murmur Extremities: no edema Gastrointestinal (Abdomen): Inspection/Auscultation: normal bowel sounds; abdomen not distended Percussion/Palpation: abdomen soft; abdomen nontender Musculoskeletal: no acute arthritis involving any of the joint Neurologic: normal touch/pain/proprioception and moves all extremities; no focal motor deficits Lymphatic: no cervical or axillary lymphadenopathy Results & Data Results & Data Vital Signs (Past 12 Hours) Vital Signs Temp Pulse Pulse Resp BP Pulse Ox Pulse Ox 12/08/24 12:11 36.7 C 74 18 117/66 95 12/08/24 09:25 93 12/08/24 09:00 79 12/08/24 07:59 36.5 C 84 18 134/76 95 O2 Del Method O2 Del Method O2 Flow Rate O2 Flow Rate 12/08/24 12:11 Nasal Cannula 2 12/08/24 09:25 Nasal Cannula 2 12/08/24 09:00 12/08/24 07:59 Nasal Cannula 2 Laboratory Results Short CBC 12/08/24 Range/Units 06:03 WBC 26.43 H (4.8-10.8) K/ul Hgb 10.2 L (12.0-16.0) g/dl Hct 29.4 L (37.0-47.0) % Plt Count 310 (130-400) K/uL BMP 12/07/24 12/07/24 12/08/24 15:34 21:22 03:30 Sodium 125 L 126 L 127 L Potassium 4.4 4.3 4.3 Chloride 91 L 90 L 93 L Carbon Dioxide 28 28 27 BUN 24 H 21 21 Creatinine 0.89 0.93 0.84 Glucose 115 H 124 H 125 H Calcium 9.3 9.6 9.3 Medications Administered Current Inpatient Medications Acetaminophen (Acetaminophen 325 Mg Tab) 650 mg PO Q4H PRN PRN Reason: Pain or Fever Stop: 01/06/25 09:24 Amiodarone HCl (Amiodarone 200 Mg Tab) 200 mg PO DAILY [facility] Stop: 01/06/25 09:24 Last Admin: 12/08/24 08:08 Dose: 200 mg Amlodipine Besylate (Amlodipine Besylate 5 Mg Tab) 5 mg PO DAILY [facility] Stop: 01/08/25 08:59 Artificial Tears (Artificial Tears) 1 drops OP QID [facility] Stop: 01/06/25 12:59 Last Admin: 12/08/24 12:02 Dose: 1 drops Aspirin (Aspirin 325 Mg Ectab) 325 mg PO DAILY [facility] Stop: 01/06/25 09:24 Last Admin: 12/08/24 08:07 Dose: 325 mg Benzonatate (Benzonatate 100 Mg Capsule) 100 mg PO TID [facility] Stop: 01/06/25 09:24 Last Admin: 12/08/24 13:41 Dose: 100 mg Buspirone HCl (Buspirone 5 Mg Tab) 5 mg PO BID PRN PRN Reason: Anxiety Stop: 01/06/25 09:24 Calcium/Vitamin D (Calcium 600mg + Vit D 400 Iu Tab) 1 tab PO DAILY [facility] Stop: 01/06/25 09:44 Last Admin: 12/08/24 08:08 Dose: 1 tab Cyanocobalamin (Cyanocobalamin (B-12) 500 Mcg Tablet) 1,000 mcg PO Q2D@0900 [facility] Stop: 01/06/25 09:44 Last Admin: 12/07/24 10:59 Dose: 1,000 mcg Enoxaparin Sodium (Enoxaparin Inj 40 Mg/0.4 Ml Syr) 40 mg SQ Q24H [facility] Stop: 01/06/25 09:59 Last Admin: 12/08/24 10:50 Dose: 40 mg Furosemide (Furosemide 40 Mg Tab) 40 mg PO BID [facility] Stop: 01/07/25 20:59 Guaifenesin/Dextromethorphan (Guaifenesin/Dextrom Syrup 100mg/10mg 5ml Udc) 5 ml PO Q6H PRN PRN Reason: Cough Stop: 01/06/25 09:24 Last Admin: 12/08/24 04:30 Dose: 5 ml Meropenem 500 mg/ Syringe 10 mls @ 2 mls/min IV Q8H [facility]; Protocol Stop: 12/09/24 04:14 Last Admin: 12/08/24 12:02 Dose: 2 mls/min Vancomycin HCl (Vancomycin Hcl) 1,000 mg in 270 mls @ 200 mls/hr IV Q24H [facility] Stop: 12/22/24 10:59 Last Infusion: 12/08/24 13:42 Dose: Infused Lactobacillus Acidophilus (Advanced Probiotic 625 Mg Capsule) 625 mg PO DAILY [facility] Stop: 01/06/25 09:24 Last Admin: 12/08/24 08:08 Dose: 625 mg Levothyroxine Sodium (Levothyroxine Sodium 75 Mcg Tablet) 75 mcg PO DAILYBB [facility] Stop: 01/06/25 09:24 Last Admin: 12/08/24 06:28 Dose: 75 mcg Magnesium Oxide (Magnesium Oxide 400 Mg Tab) 400 mg PO DAILY [facility] Stop: 01/06/25 09:44 Last Admin: 12/08/24 08:10 Dose: 400 mg Metoprolol Succinate (Metoprolol Succ 50mg Ext Rel Tab) 50 mg PO BID [facility] Stop: 01/06/25 09:24 Last Admin: 12/08/24 08:07 Dose: 50 mg Miscellaneous Information (Vancomycin Consult Active) 1 each N/A UD PRN PRN Reason: Consult Stop: 01/06/25 22:49 Multivitamins/Minerals (Cerovite Adv Formula Tab) 1 tab PO DAILY [facility] Stop: 01/06/25 09:44 Last Admin: 12/08/24 08:09 Dose: 1 tab Nitroglycerin (Nitroglycerin Sl 0.4 Mg/Tab Tab) 0.4 mg SL Q5M PRN PRN Reason: Chest Pain Stop: 01/06/25 09:24
--- NOTE | 2024-12-08 14:56 | Infectious Disease Consult ---
Date of Service December 08, 2024 Telehealth Information I performed this visit using a real-time telehealth connection between my location and the patients location ([facility]). After connecting through interactive tele-video, patient was identified by name and date of and/or wristband check.Patient (or authorized healthcare sales representative metals) was informed that this was a telemedicine visit and it was being conducted confidentially over secure lines. My office door was closed and no on e else was present in the room with me.Patient (or authorized healthcare sales representative metals) provided consent to proceed with the visit, expressed an understanding of privacy and security of the telemedicine visit, and gave permission to have a hospital sales representative metals in the room in order to assist with the visit and to conduct portions of the visit, as needed. I informed the patient (or authorized healthcare sales representative metals) that I reviewed their record and presented the opportunity for them to ask any questions regarding the visit today. The patient agreed to participate. Assessment & Plan (1) Bacteremia due to methicillin resistant Staphylococcus aureus: Plan: The source for her bacteremia is not clear. Usually infection arises from the skin, but I cannot find an obvious source based on a somewhat limited exam. She does have COVID and so it could be secondary to that, but if so, would most likely come from the respiratory tract. Her CXR does not appear compatible with any underlying pneumonia at this time. (2) COVID-19: Plan: Infection timeline and symptoms are mild, if any, at this time. (3) HSV (herpes simplex virus) infection: Plan: Ulcer on her lip is consistent with active HSV infection. Plan 1. D/C meropenem 2. Repeat blood cultures x 2 3. TTE 4. Vancomycin per pharmacy protocol for now 5. Valacyclovir 1000mg po bid x 7 days Final abx plans remain pending. ID will follow along with you. History of Present Illness History of Present Illness Ms. Carlson is seen today for evaluation of bacteremia. She is an 84yo female with a h/o PVD, CHF and CKD. She was recently diagnosed with both UTI's and COVID. The COVID diagnosis was on 11/26 and she had only a mild cough. The UTI was most recently diagnosed 11/30/24 (Enterobacter) and she was put on a 10 day course of cipro. She noted a lot of loose stool on this therapy. She came back to the [facility] ED with progressive weakness, diarrhea and cough. She was thought to have another possible UTI and started on meropenem. Her blood cultures however came back positive for MRSA and today, vancomycin was started. She feels no better since admission. She complains of ongoing weakness, malaise, and uncontrollable loose stool. She has had only one BM today so far, however. No skin breakdown concerns, rash, or wounds. She does have a relatively new ulcer on her lip though. Allergies Allergy/AdvReac Type Severity Reaction Status Date / Time Quinolones Allergy Intermediate HIVES Verified 11/17/24 17:13 dabigatran etexilate Allergy Unknown ON Verified 11/17/24 17:13 [employer] MED LIST metronidazole AdvReac Intermediate GI SYMPTOMS Verified 11/17/24 17:13 sulfamethoxazole AdvReac Mild GI SYMPTOMS Verified 11/17/24 17:13 trimethoprim AdvReac Mild GI SYMPTOMS Verified 11/17/24 17:13 Home Medications Medication Instructions Recorded Confirmed Type L.acidop,casei,lactis,rham-B.lact,nicole 2 cap PO DAILY 12/07/24 12/07/24 History 625 mg (10 billion cell) capsule (Advanced Probiotic) amiodarone 200 mg tablet 200 mg PO DAILY 12/07/24 12/07/24 History amlodipine 10 mg tablet 10 mg PO DAILY 12/07/24 12/07/24 History aspirin 325 mg tablet 325 mg PO DAILY 12/07/24 12/07/24 History buspirone 5 mg tablet 5 mg PO BID PRN Anxiety 12/07/24 12/07/24 History calcium 600 mg (as 1 tab PO DAILY 12/07/24 12/07/24 History carbonate)-vitamin D3 10 mcg (400 unit) tablet (Calcium 600 + D(3)) cyanocobalamin (vitamin B-12) 1,000 mcg PO Q OTHER DAY 12/07/24 12/07/24 History 1,000 mcg tablet furosemide 40 mg tablet 40 mg PO DAILY 12/07/24 12/07/24 History levothyroxine 75 mcg tablet 75 mcg PO DAILY 12/07/24 12/07/24 History magnesium oxide 400 mg PO DAILY 12/07/24 12/07/24 History methenamine hippurate 1 gram tablet 1 g PO BID 12/07/24 12/07/24 History metoprolol succinate 50 mg 50 mg PO BID 12/07/24 12/07/24 History tablet,extended release 24 hr multivitamin with minerals 1 tab PO DAILY 12/07/24 12/07/24 History peg 400-propylene glycol 0.4 %-0.3 1 drp ophthalmic (eye) QID 12/07/24 12/07/24 History % eye drops (Systane Ultra) potassium gluconate 595 mg (99 mg) 595 mg PO DAILY 12/07/24 12/07/24 History tablet vit C 250 mg-vit E 90 mg-zinc 40 2 tab PO DAILY 12/07/24 12/07/24 History mg-copper 1 [id number] capsule (PreserVision AREDS-2) Patient History Medical History Acute UTI Renal colic Hydronephrosis Right ureteral stone High serum calcium 01/2024 Kidney stone Leukocytosis Failure of outpatient treatment Generalized weakness Macular degeneration Cat scratch 02/17/2024 Stage 3b chronic kidney disease (CKD) Pulmonary hypertension RSVP 40-50mmHg per 04/2024 ECHO Heart valve disease 04/2024 ECHO: mild-mod AR, mod MR, mild TR CHIQUITA (generalized anxiety disorder) PVD (peripheral vascular disease) Hyperlipidemia SIADH (syndrome of inappropriate ADH production) usually takes salt tab; has been off since 06/27/24 [facility] admission History of recent hospitalization [facility] 06/25-06/27/24: dx: acute UTI, R ureteric stone (stent placement 06/25/24) acute on chronic CHF, acute hypoxemic resp failure Urinary tract infection Infection of wound hematoma H/O- 2016 HTN (hypertension) On amiodarone therapy Hypothyroidism History of anemia no current issues Hx of pleural effusion (2021) seen most recently on abd/pelvis CT 06/25/24 Chronic kidney disease, stage 3a IIIa/IIIb per chart review Macular degeneration Kidney stones Hx of congestive heart failure Paroxysmal atrial fibrillation controlled w/ amiodarone - follows w/ Dr Canela Hx of recurrent urinary tract infection completed abx 07/24/24 Pulmonary edema seen most recently abd/pelvis CT 06/25/24 Elevated brain natriuretic peptide (BNP) level hx of Shortness of breath mild, w/ exertion Chronic heart failure with preserved ejection fraction 05/02/24 ECHO: Grade II DD c/w marked CHF; EF 55-60% Atypical chest pain hx - denies current issues GERD (gastroesophageal reflux disease) Pneumonia hx- no issues since ~2021 per pt Diverticulitis h/o > 2019 Surgical History History of cystoscopy cysto, R ureteral stent 06/25/24: MAC without issue Hx of tubal ligation History of umbilical hernia repair incarcerated - unknown age Hx of hernia repair right inguinal 2013 Hx of cholecystectomy Hx of hysterectomy Family History Mother Stroke Social History Smoking Status: Never smoker Second Hand Exposure: No; Do You Dip or Chew Tobacco: No; Tobacco Cessation Education Requested by Patient: No Hx Alcohol Use: No Hx Substance Use: No Preferred Language: Tajik Communication Ability: Effective Service Aide Required: No Beliefs That Will Affect Care: None marital status: Current Living Situation: Alone Current Living Situation Comment: Has an aide who comes over current occupational status: retired How many Children do You have: 3 Other Information That Helps Us Care for You: No Feels Safe at Home: Yes Safety Concerns: Feels Safe At This Time Assistive Devices: Lift Chair and Walker Review of Systems Gen- Weak, tired, no fevers HEENT- No NINA or sore throat. No difficulty swallowing. +Cold sore on lip Resp- No SOB. + mild dry cough CV- No chest pain GI- No N/V. Appetite relatively poor. Some loose stool with incontinence. - No dysuria MSK- No joint pains Ext- Mild edema Skin- No rash Physical Exam Gen- NAD, [id number] HEENT- Superficial ulcer on lower lip Resp- On 1.5 liters of O2 with normal respiratory rate MSK- No obvious erythema Skin- No rash Neuro- Alert and oriented Results & Data Vital Signs (Past 12 Hours) Vital Signs Temp Pulse Pulse Resp BP Pulse Ox Pulse Ox 12/08/24 12:11 36.7 C 74 18 117/66 95 12/08/24 09:25 93 12/08/24 09:00 79 12/08/24 07:59 36.5 C 84 18 134/76 95 O2 Del Method O2 Del Method O2 Flow Rate O2 Flow Rate 12/08/24 12:11 Nasal Cannula 2 12/08/24 09:25 Nasal Cannula 2 12/08/24 09:00 12/08/24 07:59 Nasal Cannula 2 Laboratory Results WBC 29.15 -> 26.43 Hgb 10.2 Platelets 310 Sodium 127 Creatinine 0.84 BUN 26 UA with >50 WBC, 3-5 RBC Diagnostic Findings GI pathogen panel negative RVP positive for COVID Blood cultures 12/07/24 with 2 of 4 bottles MRSA CXR shows clear lungs
[2024-12-08] MEDS: ACETAMINOPHEN 325 MG TAB PO PRN (21:03)
[2024-12-08] MEDS: FUROSEMIDE 40 MG TAB PO SCH (21:58)
[2024-12-09 05:23] LABS: Hematocrit (blood only) 29.7 % (37.0-47.0); Hemoglobin 10.3 g/dl (12.0-16.0); Immature Granulocytes # (auto) 0.28 K/uL (0.01-0.20); Immature Granulocytes % (auto) 1.2 %; Mean Corpuscular Hemoglobin 32.1 pg (25.0-34.0); Mean Corpuscular Volume 92.5 fL (80.0-100.0); Platelet Count 300 K/uL (130-400); RDW Standard Deviation 47.0 fL (36.4-46.3); Red Blood Count 3.21 M/uL (4.20-5.40); White Blood Count 23.23 K/ul (4.8-10.8)
--- NOTE | 2024-12-09 05:26 | Electrocardiogram Report ---
Test Reason : Blood Pressure : */* mmHG Vent. Rate : 106 BPM Atrial Rate : * BPM P-R Int : * ms QRS Dur : 152 ms QT Int : 408 ms P-R-T Axes : * 15 -18 degrees QTcB Int : 541 ms Atrial fibrillation with rapid ventricular response Indeterminate axis Left bundle branch block Abnormal ECG When compared with ECG of 17-Nov-2024 15:50, Atrial fibrillation has replaced Sinus rhythm Vent. rate has increased by 51 bpm Confirmed by Jay Khan ([id number]) on 12/09/2024 5:25:54 AM Referred By: REFERRED SELF Confirmed By: Jay Khan
[2024-12-09 05:36] LABS: Anion Gap 8.0 (3-11); Blood Urea Nitrogen 17.0 mg/dl (6-23); Calcium 9.2 mg/dl (8.6-10.3); Carbon Dioxide 30.0 mmol/L (21-32); Chloride 90.0 mmol/L (98-107); Creatinine Clr Calc Pharmacy 47.8 ml/min; Glucose 107.0 mg/dl (70-99(Fasting)); Potassium 3.6 mmol/L (3.5-5.1); Sodium 128.0 mmol/L (136-145)
[2024-12-09] MEDS: VANCOMYCIN HCL 1,250 MG in SODIUM CHLORIDE 0.9% 250 ML IV SCH (08:26)
--- NOTE | 2024-12-09 10:35 | Pharmacy Report ---
Pharmacy PK ABX Note - Date of Service December 09, 2024 - Assessment and Plan Assessment 12/09: * WBCs trending down, renal function slightly improved. * ID consult, Valtrex x 7 days for HSV infection on mouth, Vancomycin for MRSA bacteremia, unknown source. Meropenem DC'd. 12/08: 84 year old F receiving vancomycin and meropenem for positive blood cultures/concerns for UTI. Patient recently hospitalized for complicated UTI, received gentamicin prior to discharge. Was also started on cipro 11/30 x 10 days for UTI per notes. Tested positive for COVID 11/26. Presenting with increased diarrhea and weakness on admission. Blood cultures with Gm positive cocci in clusters, BCID2 positive for MRSA. Urine culture pending. Plan Vancomycin * Current regimen: 1000 mg IV every 24 hours * Random level obtained 12/09/24 resulted as 14.2 mcg/mL. This is predicted to ac hieve target AUC/PAVITHRA of 400-600 mg/L.hr, however at the lower end * Change to 1250 mg IV every 24 hours to ensure therapeutic AUC for MRSA bacteremia * Will repeat level in 48 hours Valtrex 1000mg PO BID x 7 days for CrCl < 50ml/min Pharmacy will continue to follow and will adjust dose/frequency as necessary. Thank you. Pharmacy has transitioned to AUC monitoring for vancomycin. AUC/PAVITHRA is the preferred PK/PD target and is associated with decreased risk of nephrotoxicity compared to traditional trough targets.
--- NOTE | 2024-12-09 11:24 | Nephrology Progress Note ---
Date of Service December 09, 2024 Assessment & Plan Admission and Anticipated Discharge Date Admission Date: December 07, 2024 Subjective Assessment & Plan (1) Hyponatremia: This is acute on chronic problem. 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 For the last 1 week her appetite for solid food has been extremely low as a result of COVID infection. Given her pre-existing hyponatremia she is very susceptible to big drop in serum sodium and this is what happened because of very low solute diet. Current Hyponatremia was worsened by Covid/Poor Solid food intake but still had e/o volume overload. she does not appear to be volume depleted if anything she has significant edema. given this significant edema I do want to lower the dose of amlodipine to 5 daily continue oral Lasix 40 twice daily. na has gone from 119 to 128 now at good rate she really needs to increase her protein intake/solid food intake. fluid limit 1200 mL per day still having significant nausea and given this I would not use salt tablet or urea for now na is now 128 so not too far off from her baseline. Can check BMP once daily now. (2) COVID-19: seems to be the precipitating cause for her symptoms and big drop in sodium (3) Complicated urinary tract infection: currently urine culture is pending. She is getting IV meropenem S--no new issues. On RA now. Poor Intake. weak. very hard of hearing and currently very weak. Physical Exam Physical Exam: General- Not in distress. very hard of hearing. weak and frail. HEENT---MM moist. Neck- supple, no JVD. Lungs- clear to auscultation no wheezing or crackles Heart- regular rhythm; no murmur, no gallop. Abdomen- soft, nontender, no distension Extremities- b/l lower extremity 1+edema present Neuro- alert, oriented . hard of hearing. PERRL, no facial palsy; no dysarthria; moves extremities Results & Data Vital Signs (Past 12 Hours) Vital Signs Temp Pulse Pulse Resp BP Pulse Ox Pulse Ox 12/09/24 09:49 80 12/09/24 09:00 93 12/09/24 07:35 12/09/24 07:22 36.6 C 82 18 144/64 H 92 12/09/24 03:14 36.4 C L 74 18 132/58 L 93 O2 Del Method O2 Del Method 12/09/24 09:49 12/09/24 09:00 Room Air 12/09/24 07:35 Room Air 12/09/24 07:22 Room Air 12/09/24 03:14 Room Air
[2024-12-09] MEDS: POTASSIUM CHLORIDE CRTAB 20 MEQ TABCR PO SCH (12:26)
--- NOTE | 2024-12-09 12:59 | Hospitalist Progress Note ---
Date of Service December 09, 2024 Assessment & Plan (1) Complicated urinary tract infection: Plan: 84-year-old female past medical significant for SIADH, hypothyroidism, hyperlipidemia, peripheral vascular disease, chronic heart failure with preserved ejection fraction, atrial fibrillation, hypertension, venous insufficiency, macular degeneration, GERD, CKD stage IIIb, history of symptomatic anemia, history of aspiration pneumonitis, history of generalized anxiety disorder, lives alone at home, ambulates with a walker comes because of weakness, dry cough and diarrhea. Patient was recently in the hospital and treated for complicated UTI. She has multidrug-resistant UTI. She she received 1 dose of gentamicin before discharge. Patient was tested positive for COVID on Sunday 11/26. Having dry cough. Weakness. She also started on Cipro on 11/30/2024 for UTI for 10 days. Yesterday had 6 episodes of diarrhea which prompted her to come to the ER. Patient is very hard of hearing and somewhat difficult to get history. Denies any headache. Denies body aches. Has stuffy nose. No sore throat. Complains of dry mouth and dry throat. Denies chest pain or shortness of breath. No nausea. No abdominal pain. Status post Cramer catheter in the ER. Hemodynamics are okay. MRSA bacteremia 2 out of 2 bottles Complicated urinary tract infection Recent cultures show multidrug-resistant Enterobacter cloacae complex ER started meropenem which will be continued Status post Cramer Urine culture has been negative Blood cultures growing Staph aureusMRSA and she was added with intravenous vancomycin on top of meropenem Infectious disease has been consulted for further recommendation about antibiotic She has been feeling a little better as of today Appreciate ID input and recommendation to continue vancomycin for now and meropenem has been discontinued No fever no chills and the patient is feeling better clinically She has been getting valacyclovir for herpes infection Recurrent UTIs Status post Cramer and has been since seen by urologist Urine culture has been negative this time Will advise to have outpatient appointment with a urologist following discharge Hyponatremia History of SIADH Presented with sodium of 121 Will follow serial BMPs Currently getting gentle fluids normal saline at 50 mL/h for 1 L Will follow his serum osmolality, urine osmolality and urine sodium levels Slow correction Nephro consult- appreciate nephrology input and recommendation Sodium level has improved a little bit and will continue current fluid restriction and no salt tablet will be given Leukocytosis- secondary to ongoing infection and bacteremia From above Will follow repeat labs Diarrhea Stool studies unremarkable C. difficile negative Likely secondary to recent use of antibiotic for UTI COVID Diagnosed on 11/26/2024 Supportive care COVID precautions No x-ray evidence of COVID-pneumonia will be given cough medicine as needed Has minimal cough but no COVID pneumonia and has been saturating normally on room air Chronic heart failure with preserved ejection fraction Has some lower extremity edema ,to continue home Lasix Monitor for volume overload Will continue with the oral Lasix as advised by the surgical physician assistant Lower extremity edema Continue home Lasix Will check Dopplers Paroxysmal atrial fibrillation On amiodarone and metoprolol full dose aspirin Abnormal EKG Left bundle branch block Prolonged QTc Avoid QT prolonging drugs Follow repeat EKG CKD stage III Creatinine 1.06 We will follow repeat labs Hypothyroidism On Synthyroid Hypertension On amlodipine and metoprolol Monitor Cirrhosis and hepatomegaly pancreatic duct dilatation and small pelvic cyst Follow-up with GI DVT prophylaxis Lovenox Disposition Med/telemetry Will get PT and OT evaluation prior to discharge Admission and Anticipated Discharge Date Admission Date: December 07, 2024 Subjective 12/08/2024 The patient was seen and examined in telemetry unit and in the COVID room She has been feeling little better but remains lethargic Minimal cough without any shortness of breath 12/09/2024 The patient was seen and examined in telemetry unit in presence of the daughter and the granddaughter She has been feeling much better but remains generally weak Has cough without any phlegm and no shortness of breath at rest No fever and/or chills Review of Systems Review of Systems: all systems reviewed and are unremarkable except as noted below Physical Exam Physical Exam: Lying in bed without any acute distress Constitutional: + ill appearing and + thin Eyes: PERRL, conjunctivae normal, anicteric sclerae ENMT: external ear and nose normal, oropharynx normal Neck: trachea midline, no thyromegaly Respiratory: + respiratory distress ( minimal distres s at rest) Auscultation: + diminished lung sounds and + crackles ( occasional crackles at the bases) Cardiovascular: Rate/Rhythm: regular rate and regular rhythm; not tachycardic Heart Sounds: normal S1, normal S2 and + murmur Extremities: no edema Gastrointestinal (Abdomen): Inspection/Auscultation: normal bowel sounds; abdomen not distended Percussion/Palpation: abdomen soft; abdomen nontender Musculoskeletal: no acute arthritis involving any of the joint Neurologic: normal touch/pain/proprioception and moves all extremities; no focal motor deficits Lymphatic: no cervical or axillary lymphadenopathy Results & Data Results & Data Vital Signs (Past 12 Hours) Vital Signs Temp Pulse Pulse Resp BP Pulse Ox Pulse Ox 12/09/24 11:45 36.7 C 78 16 125/64 94 12/09/24 09:49 80 12/09/24 09:00 93 12/09/24 07:35 12/09/24 07:22 36.6 C 82 18 144/64 H 92 12/09/24 03:14 36.4 C L 74 18 132/58 L 93 O2 Del Method O2 Del Method 12/09/24 11:45 Room Air 12/09/24 09:49 12/09/24 09:00 Room Air 12/09/24 07:35 Room Air 12/09/24 07:22 Room Air 12/09/24 03:14 Room Air Laboratory Results Short CBC 12/09/24 Range/Units 04:44 WBC 23.23 H (4.8-10.8) K/ul Hgb 10.3 L (12.0-16.0) g/dl Hct 29.7 L (37.0-47.0) % Plt Count 300 (130-400) K/uL BMP 12/09/24 04:44 Sodium 128 L Potassium 3.6 Chloride 90 L Carbon Dioxide 30 BUN 17 Creatinine 0.73 Glucose 107 H Calcium 9.2 Medications Administered Current Inpatient Medications Acetaminophen (Acetaminophen 325 Mg Tab) 650 mg PO Q4H PRN PRN Reason: Pain or Fever Stop: 01/06/25 09:24 Last Admin: 12/09/24 06:32 Dose: 650 mg Amiodarone HCl (Amiodarone 200 Mg Tab) 200 mg PO DAILY [facility] Stop: 01/06/25 09:24 Last Admin: 12/09/24 08:29 Dose: 200 mg Amlodipine Besylate (Amlodipine Besylate 5 Mg Tab) 5 mg PO DAILY [facility] Stop: 01/08/25 08:59 Last Admin: 12/09/24 08:27 Dose: 5 mg Artificial Tears (Artificial Tears) 1 drops OP QID [facility] Stop: 01/06/25 12:59 Last Admin: 12/09/24 12:26 Dose: 1 drops Aspirin (Aspirin 325 Mg Ectab) 325 mg PO DAILY [facility] Stop: 01/06/25 09:24 Last Admin: 12/09/24 08:29 Dose: 325 mg Benzonatate (Benzonatate 100 Mg Capsule) 100 mg PO TID [facility] Stop: 01/06/25 09:24 Last Admin: 12/09/24 12:26 Dose: 100 mg Buspirone HCl (Buspirone 5 Mg Tab) 5 mg PO BID PRN PRN Reason: Anxiety Stop: 01/06/25 09:24 Calcium/Vitamin D (Calcium 600mg + Vit D 400 Iu Tab) 1 tab PO DAILY [facility] Stop: 01/06/25 09:44 Last Admin: 12/09/24 08:29 Dose: 1 tab Cyanocobalamin (Cyanocobalamin (B-12) 500 Mcg Tablet) 1,000 mcg PO Q2D@0900 [facility] Stop: 01/06/25 09:44 Last Admin: 12/09/24 08:27 Dose: 1,000 mcg Enoxaparin Sodium (Enoxaparin Inj 40 Mg/0.4 Ml Syr) 40 mg SQ Q24H [facility] Stop: 01/06/25 09:59 Last Admin: 12/09/24 08:42 Dose: 40 mg Furosemide (Furosemide 40 Mg Tab) 40 mg PO BID [facility] Stop: 01/07/25 20:59 Last Admin: 12/09/24 08:30 Dose: 40 mg Guaifenesin/Dextromethorphan (Guaifenesin/Dextrom Syrup 100mg/10mg 5ml Udc) 5 ml PO Q6H PRN PRN Reason: Cough Stop: 01/06/25 09:24 Last Admin: 12/09/24 10:15 Dose: 5 ml Vancomycin HCl 1,250 mg/ (Sodium Chloride) 275 mls @ 200 mls/hr IV Q24H [facility] Stop: 12/22/24 07:59 Last Infusion: 12/09/24 10:28 Dose: Infused Lactobacillus Acidophilus (Advanced Probiotic 625 Mg Capsule) 625 mg PO DAILY [facility] Stop: 01/06/25 09:24 Last Admin: 12/09/24 08:29 Dose: 625 mg Levothyroxine Sodium (Levothyroxine Sodium 75 Mcg Tablet) 75 mcg PO DAILYBB [facility] Stop: 01/06/25 09:24 Last Admin: 12/09/24 05:20 Dose: 75 mcg Magnesium Oxide (Magnesium Oxide 400 Mg Tab) 400 mg PO DAILY [facility] Stop: 01/06/25 09:44 Last Admin: 12/09/24 08:29 Dose: 400 mg Metoprolol Succinate (Metoprolol Succ 50mg Ext Rel Tab) 50 mg PO BID [facility] Stop: 01/06/25 09:24 Last Admin: 12/09/24 08:31 Dose: 50 mg Miscellaneous Information (Vancomycin Consult Active) 1 each N/A UD PRN PRN Reason: Consult Stop: 01/06/25 22:49 Multivitamins/Minerals (Cerovite Adv Formula Tab) 1 tab PO DAILY [facility] Stop: 01/06/25 09:44 Last Admin: 12/09/24 08:29 Dose: 1 tab Nitroglycerin (Nitroglycerin Sl 0.4 Mg/Tab Tab) 0.4 mg SL Q5M PRN PRN Reason: Chest Pain Stop: 01/06/25 09:24 Potassium Chloride (Potassium Chloride Crtab 20 Meq Tabcr) 20 meq PO BID [facility] Stop: 01/08/25 11:29 Last Admin: 12/09/24 12:26 Dose: 20 meq Valacyclovir HCl (Valacyclovir Hcl 500 Mg Tablet) 1,000 mg PO BID [facility] Stop: 12/15/24 20:59 Last Admin: 12/09/24 08:31 Dose: 1,000 mg
[2024-12-10 08:25] LABS: Hematocrit (blood only) 30.6 % (37.0-47.0); Hemoglobin 10.7 g/dl (12.0-16.0); Immature Granulocytes # (auto) 0.28 K/uL (0.01-0.20); Immature Granulocytes % (auto) 1.7 %; Mean Corpuscular Hemoglobin 32.6 pg (25.0-34.0); Mean Corpuscular Volume 93.3 fL (80.0-100.0); Platelet Count 330 K/uL (130-400); RDW Standard Deviation 46.5 fL (36.4-46.3); Red Blood Count 3.28 M/uL (4.20-5.40); White Blood Count 16.16 K/ul (4.8-10.8)
[2024-12-10 09:09] LABS: Anion Gap 10.0 (3-11); Blood Urea Nitrogen 12.0 mg/dl (6-23); Calcium 9.1 mg/dl (8.6-10.3); Carbon Dioxide 30.0 mmol/L (21-32); Chloride 88.0 mmol/L (98-107); Glucose 94.0 mg/dl (70-99(Fasting)); Potassium 3.8 mmol/L (3.5-5.1); Sodium 128.0 mmol/L (136-145)
[2024-12-10 09:17] LABS: Creatinine Clr Calc Pharmacy 52.0 ml/min
[2024-12-10] MEDS: LOPERAMIDE HCL 2 MG CAP PO PRN (10:53)
--- NOTE | 2024-12-10 12:30 | Hospitalist Progress Note ---
Date of Service December 10, 2024 Assessment & Plan (1) Complicated urinary tract infection: Plan: 84-year-old female past medical significant for SIADH, hypothyroidism, hyperlipidemia, peripheral vascular disease, chronic heart failure with preserved ejection fraction, atrial fibrillation, hypertension, venous insufficiency, macular degeneration, GERD, CKD stage IIIb, history of symptomatic anemia, history of aspiration pneumonitis, history of generalized anxiety disorder, lives alone at home, ambulates with a walker comes because of weakness, dry cough and diarrhea. Patient was recently in the hospital and treated for complicated UTI. She has multidrug-resistant UTI. She she received 1 dose of gentamicin before discharge. Patient was tested positive for COVID on Sunday 11/26. Having dry cough. Weakness. She also started on Cipro on 11/30/2024 for UTI for 10 days. Yesterday had 6 episodes of diarrhea which prompted her to come to the ER. Patient is very hard of hearing and somewhat difficult to get history. Denies any headache. Denies body aches. Has stuffy nose. No sore throat. Complains of dry mouth and dry throat. Denies chest pain or shortness of breath. No nausea. No abdominal pain. Status post Cramer catheter in the ER. Hemodynamics are okay. MRSA bacteremia 2 out of 2 bottles Complicated urinary tract infection Recent cultures show multidrug-resistant Enterobacter cloacae complex ER started meropenem which will be continued Status post Cramer Urine culture has been negative Blood cultures growing Staph aureusMRSA and she was added with intravenous vancomycin on top of meropenem Infectious disease has been consulted for further recommendation about antibiotic She has been feeling a little better as of today Appreciate ID input and recommendation to continue vancomycin for now and meropenem has been discontinued No fever no chills and the patient is feeling better clinically She has been getting valacyclovir for herpes infection Clinically much better but remains weak and complains of She will be given Hycodan Her white count has been improving Recurrent UTIs Status post Cramer and has been since seen by urologist Urine culture has been negative this time Will advise to have outpatient appointment with a urologist following discharge Hyponatremia History of SIADH Presented with sodium of 121 Will follow serial BMPs Currently getting gentle fluids normal saline at 50 mL/h for 1 L Will follow his serum osmolality, urine osmolality and urine sodium levels Slow correction Nephro consult- appreciate nephrology input and recommendation Sodium level has improved a little bit and will continue current fluid restriction and no salt tablet will be given Sodium level remains on the lower side at 128 and will continue fluid restriction Leukocytosis- secondary to ongoing infection and bacteremia From above Will follow repeat labs Diarrhea Stool studies unremarkable C. difficile negative Likely secondary to recent use of antibiotic for UTI Stool has been negative for any C. difficile colitis Will give Imodium as needed COVID Diagnosed on 11/26/2024 Supportive care COVID precautions No x-ray evidence of COVID-pneumonia will be given cough medicine as needed Has minimal cough but no COVID pneumonia and has been saturating normally on room air Chronic heart failure with preserved ejection fraction Has some lower extremity edema ,to continue home Lasix Monitor for volume overload Will continue with the oral Lasix as advised by the missing persons investigator Lower extremity edema Continue home Lasix Will check Dopplers Paroxysmal atrial fibrillation On amiodarone and metoprolol full dose aspirin Abnormal EKG Left bundle branch block Prolonged QTc Avoid QT prolonging drugs Follow repeat EKG CKD stage III Creatinine 1.06 We will follow repeat labs Hypothyroidism On Synthyroid Hypertension On amlodipine and metoprolol Monitor Cirrhosis and hepatomegaly pancreatic duct dilatation and small pelvic cyst Follow-up with GI DVT prophylaxis Lovenox Disposition Med/telemetry Will get PT and OT evaluation prior to discharge Admission and Anticipated Discharge Date Admission Date: December 07, 2024 Subjective 12/08/2024 The patient was seen and examined in telemetry unit and in the COVID room She has been feeling little better but remains lethargic Minimal cough without any shortness of breath 12/09/2024 The patient was seen and examined in telemetry unit in presence of the daughter and the granddaughter She has been feeling much better but remains generally weak Has cough without any phlegm and no shortness of breath at rest 12/10/2024 The patient was seen and examined in telemetry unit She has been weak and lethargic and complains to have cough and diarrhea No pain and/or shortness of breath and no fever no chills Review of Systems Review of Systems: all systems reviewed and are unremarkable except as noted below Physical Exam Physical Exam: Lying in bed without any acute distress Constitutional: + ill appearing and + thin Eyes: PERRL, conjunctivae normal, anicteric sclerae ENMT: external ear and nose normal, oropharynx normal Neck: trachea midline, no thyromegaly Respiratory: + respiratory distress ( minimal distres s at rest) Auscultation: + diminished lung sounds and + crackles ( occasional crackles at the bases) Cardiovascular: Rate/Rhythm: regular rate and regular rhythm; not tachycardic Heart Sounds: normal S1, normal S2 and + murmur Extremities: no edema Gastrointestinal (Abdomen): Inspection/Auscultation: normal bowel sounds; abdomen not distended Percussion/Palpation: abdomen soft; abdomen nontender Neurologic: normal touch/pain/proprioception and moves all extremities; no focal motor deficits Lymphatic: no cervical or axillary lymphadenopathy Results & Data Results & Data Vital Signs (Past 12 Hours) Vital Signs Temp Pulse Pulse Resp BP BP Pulse Ox 12/10/24 10:32 12/10/24 09:00 12/10/24 07:21 70 12/10/24 07:13 36.8 C 82 18 150/69 H 93 12/10/24 03:06 36.7 C 65 16 113/57 L 93 Pulse Ox O2 Del Method O2 Del Method 12/10/24 10:32 Room Air 12/10/24 09:00 90 Room Air 12/10/24 07:21 12/10/24 07:13 Room Air 12/10/24 03:06 Room Air Laboratory Results Short CBC 12/10/24 Range/Units 07:55 WBC 16.16 H (4.8-10.8) K/ul Hgb 10.7 L (12.0-16.0) g/dl Hct 30.6 L (37.0-47.0) % Plt Count 330 (130-400) K/uL BMP 12/10/24 07:55 Sodium 128 L Potassium 3.8 Chloride 88 L Carbon Dioxide 30 BUN 12 Creatinine 0.67 Glucose 94 Calcium 9.1 Medications Administered Current Inpatient Medications Acetaminophen (Acetaminophen 325 Mg Tab) 650 mg PO Q4H PRN PRN Reason: Pain or Fever Stop: 01/06/25 09:24 Last Admin: 12/09/24 21:18 Dose: 650 mg Amiodarone HCl (Amiodarone 200 Mg Tab) 200 mg PO DAILY ON LICENSE OF [facility] Stop: 01/06/25 09:24 Last Admin: 12/10/24 09:07 Dose: 200 mg Amlodipine Besylate (Amlodipine Besylate 5 Mg Tab) 5 mg PO DAILY ON LICENSE OF [facility] Stop: 01/08/25 08:59 Last Admin: 12/10/24 09:07 Dose: 5 mg Artificial Tears (Artificial Tears) 1 drops OP QID [facility] Stop: 01/06/25 12:59 Last Admin: 12/10/24 09:08 Dose: 1 drops Aspirin (Aspirin 325 Mg Ectab) 325 mg PO DAILY [facility] Stop: 01/06/25 09:24 Last Admin: 12/10/24 09:08 Dose: 325 mg Benzonatate (Benzonatate 100 Mg Capsule) 100 mg PO TID [facility] Stop: 01/06/25 09:24 Last Admin: 12/10/24 10:19 Dose: 100 mg Buspirone HCl (Buspirone 5 Mg Tab) 5 mg PO BID PRN PRN Reason: Anxiety Stop: 01/06/25 09:24 Calcium/Vitamin D (Calcium 600mg + Vit D 400 Iu Tab) 1 tab PO DAILY [facility] Stop: 01/06/25 09:44 Last Admin: 12/10/24 09:11 Dose: 1 tab Cyanocobalamin (Cyanocobalamin (B-12) 500 Mcg Tablet) 1,000 mcg PO Q2D@0900 [facility] Stop: 01/06/25 09:44 Last Admin: 12/09/24 08:27 Dose: 1,000 mcg Enoxaparin Sodium (Enoxaparin Inj 40 Mg/0.4 Ml Syr) 40 mg SQ Q24H [facility] Stop: 01/06/25 09:59 Last Admin: 12/10/24 09:11 Dose: 40 mg Furosemide (Furosemide 40 Mg Tab) 40 mg PO BID [facility] Stop: 01/07/25 20:59 Last Admin: 12/10/24 09:09 Dose: 40 mg Hydrocodone Bit/Homatropine Methylb (Hydrocodone/Homatropine Syrup 5mg/1.5mg 5ml Udp) 5 ml PO Q6H PRN PRN Reason: Cough Stop: 12/24/24 09:45 Vancomycin HCl 1,250 mg/ (Sodium Chloride) 275 mls @ 200 mls/hr IV Q24H [facility] Stop: 12/22/24 07:59 Last Infusion: 12/10/24 10:52 Dose: Infused Lactobacillus Acidophilus (Advanced Probiotic 625 Mg Capsule) 625 mg PO DAILY [facility] Stop: 01/06/25 09:24 Last Admin: 12/10/24 09:08 Dose: 625 mg Levothyroxine Sodium (Levothyroxine Sodium 75 Mcg Tablet) 75 mcg PO DAILYBB ON LICENSE OF [facility] Stop: 01/06/25 09:24 Last Admin: 12/10/24 04:34 Dose: 75 mcg Loperamide HCl (Loperamide Hcl 2 Mg Cap) 2 mg PO Q3H PRN PRN Reason: Diarrhea Stop: 01/09/25 09:46 Last Admin: 12/10/24 10:53 Dose: 2 mg Magnesium Oxide (Magnesium Oxide 400 Mg Tab) 400 mg PO DAILY [facility] Stop: 01/06/25 09:44 Last Admin: 12/10/24 09:09 Dose: 400 mg Metoprolol Succinate (Metoprolol Succ 50mg Ext Rel Tab) 50 mg PO BID ON [facility] OF [facility] Stop: 01/06/25 09:24 Last Admin: 12/10/24 09:09 Dose: 50 mg Miscellaneous Information (Vancomycin Consult Active) 1 each N/A UD PRN PRN Reason: Consult Stop: 01/06/25 22:49 Multivitamins/Minerals (Cerovite Adv Formula Tab) 1 tab PO DAILY ON [facility] OF [facility] Stop: 01/06/25 09:44 Last Admin: 12/10/24 09:08 Dose: 1 tab Nitroglycerin (Nitroglycerin Sl 0.4 Mg/Tab Tab) 0.4 mg SL Q5M PRN PRN Reason: Chest Pain Stop: 01/06/25 09:24 Potassium Chloride (Potassium Chloride Crtab 20 Meq Tabcr) 20 meq PO BID ON LICENSE OF [facility] Stop: 01/08/25 11:29 Last Admin: 12/10/24 10:19 Dose: 20 meq Valacyclovir HCl (Valacyclovir Hcl 500 Mg Tablet) 1,000 mg PO BID ON LICENSE OF [facility] Stop: 12/15/24 20:59 Last Admin: 12/10/24 09:09 Dose: 1,000 mg
[2024-12-11 04:44] LABS: Hematocrit (blood only) 28.0 % (37.0-47.0); Hemoglobin 10.2 g/dl (12.0-16.0); Immature Granulocytes # (auto) 0.21 K/uL (0.01-0.20); Immature Granulocytes % (auto) 1.8 %; Mean Corpuscular Hemoglobin 33.2 pg (25.0-34.0); Mean Corpuscular Volume 91.2 fL (80.0-100.0); Platelet Count 320 K/uL (130-400); RDW Standard Deviation 46.2 fL (36.4-46.3); Red Blood Count 3.07 M/uL (4.20-5.40); White Blood Count 11.96 K/ul (4.8-10.8)
[2024-12-11 05:00] LABS: Anion Gap 7.0 (3-11); Calcium 8.9 mg/dl (8.6-10.3); Carbon Dioxide 29.0 mmol/L (21-32); Chloride 91.0 mmol/L (98-107); Potassium 3.8 mmol/L (3.5-5.1); Sodium 127.0 mmol/L (136-145)
[2024-12-11 05:05] LABS: Blood Urea Nitrogen 15.0 mg/dl (6-23); Creatinine Clr Calc Pharmacy 48.3 ml/min; Glucose 93.0 mg/dl (70-99(Fasting))
--- NOTE | 2024-12-11 08:00 | Pharmacy Report ---
Pharmacy PK ABX Note - Date of Service December 11, 2024 - Assessment and Plan Assessment 12/11: * Reviewed vancomycin level, predicting therapeutic AUC/PAVITHRA, continue current regimen. 12/09: * WBCs trending down, renal function slightly improved. * ID consult, Valtrex x 7 days for HSV infection on mouth, Vancomycin for MRSA bacteremia, unknown source. Meropenem DC'd. 12/08: 84 year old F receiving vancomycin and meropenem for positive blood cultures/concerns for UTI. Patient recently hospitalized for complicated UTI, received gentamicin prior to discharge. Was also started on cipro 11/30 x 10 days for UTI per notes. Tested positive for COVID 11/26. Presenting with increased diarrhea and weakness on admission. Blood cultures with Gm positive cocci in clusters, BCID2 positive for MRSA. Urine culture pending. Plan Vancomycin * Current regimen: 1000 mg IV every 24 hours * Random level obtained 12/11/24 resulted as 17.6 mcg/mL. This is predicted to achieve target AUC/PAVITHRA of 400-600 mg/L.hr at the higher of goal range for MRSA bacteremia * Continue vancomycin 1250 mg IV every 24 hours * Will repeat level in 48 hours Valtrex 1000mg PO BID x 7 days for CrCl < 50ml/min Pharmacy will continue to follow and will adjust dose/frequency as necessary. Thank you. Pharmacy has transitioned to AUC monitoring for vancomycin. AUC/PAVITHRA is the preferred PK/PD target and is associated with decreased risk of nephrotoxicity compared to traditional trough targets.
[2024-12-11] MEDS: VANCOMYCIN LEVEL ONE (08:32)
--- NOTE | 2024-12-11 11:38 | Hospitalist Progress Note ---
Date of Service December 11, 2024 Assessment & Plan (1) Complicated urinary tract infection: Plan: 84-year-old female past medical significant for SIADH, hypothyroidism, hyperlipidemia, peripheral vascular disease, chronic heart failure with preserved ejection fraction, atrial fibrillation, hypertension, venous insufficiency, macular degeneration, GERD, CKD stage IIIb, history of symptomatic anemia, history of aspiration pneumonitis, history of generalized anxiety disorder, lives alone at home, ambulates with a walker comes because of weakness, dry cough and diarrhea. Patient was recently in the hospital and treated for complicated UTI. She has multidrug-resistant UTI. She she received 1 dose of gentamicin before discharge. Patient was tested positive for COVID on Sunday 11/26. Having dry cough. Weakness. She also started on Cipro on 11/30/2024 for UTI for 10 days. Yesterday had 6 episodes of diarrhea which prompted her to come to the ER. Patient is very hard of hearing and somewhat difficult to get history. Denies any headache. Denies body aches. Has stuffy nose. No sore throat. Complains of dry mouth and dry throat. Denies chest pain or shortness of breath. No nausea. No abdominal pain. Status post Cramer catheter in the ER. Hemodynamics are okay. MRSA bacteremia 2 out of 2 bottles Complicated urinary tract infection Recent cultures show multidrug-resistant Enterobacter cloacae complex ER started meropenem which will be continued Status post Cramer Urine culture has been negative Blood cultures growing Staph aureusMRSA and she was added with intravenous vancomycin on top of meropenem Infectious disease has been consulted for further recommendation about antibiotic She has been feeling a little better as of today Appreciate ID input and recommendation to continue vancomycin for now and meropenem has been discontinued No fever no chills and the patient is feeling better clinically She has been getting valacyclovir for herpes infection Clinically much better but remains weak and complains of She will be given Hycodan Remains afebrile and the white count is coming down to 11.96. Cough is controlled and does not have any shortness of breath Repeat blood cultures have been taken Likely discharge tomorrow Recurrent UTIs Status post Cramer and has been since seen by urologist Urine culture has been negative this time Will advise to have outpatient appointment with a urologist following discharge Hyponatremia History of SIADH Presented with sodium of 121 Will follow serial BMPs Currently getting gentle fluids normal saline at 50 mL/h for 1 L Will follow his serum osmolality, urine osmolality and urine sodium levels Slow correction Nephro consult- appreciate nephrology input and recommendation Sodium level has improved a little bit and will continue current fluid restriction and no salt tablet will be given Sodium level remains on the lower side at 128 and will continue fluid restriction Sodium level remains stable in the lower level at 127 Leukocytosis- secondary to ongoing infection and bacteremia From above Will follow repeat labs As above Diarrhea Stool studies unremarkable C. difficile negative Likely secondary to recent use of antibiotic for UTI Stool has been negative for any C. difficile colitis Will give Imodium as needed Diarrhea is controlled COVID Diagnosed on 11/26/2024-on home test Supportive care COVID precautions No x-ray evidence of COVID-pneumonia will be given cough medicine as needed Has minimal cough but no COVID pneumonia and has been saturating normally on room air Chronic heart failure with preserved ejection fraction Has some lower extremity edema ,to continue home Lasix Monitor for volume overload Will continue with the oral Lasix as advised by the biomedical instrument technician Lower extremity edema Continue home Lasix Will check Dopplers-no DVT as of 11/27/2023 Paroxysmal atrial fibrillation On amiodarone and metoprolol full dose aspirin Abnormal EKG Left bundle branch block Prolonged QTc Avoid QT prolonging drugs Follow repeat EKG CKD stage III Creatinine 1.06 We will follow repeat labs Hypothyroidism On Synthyroid Hypertension On amlodipine and metoprolol Monitor Cirrhosis and hepatomegaly pancreatic duct dilatation and small pelvic cyst Follow-up with GI DVT prophylaxis Lovenox Disposition Med/telemetry PT recommended inpatient rehab Admission and Anticipated Discharge Date Admission Date: December 07, 2024 Subjective 12/08/2024 The patient was seen and examined in telemetry unit and in the COVID room She has been feeling little better but remains lethargic Minimal cough without any shortness of breath 12/09/2024 The patient was seen and examined in telemetry unit in presence of the daughter and the granddaughter She has been feeling much better but remains generally weak Has cough without any phlegm and no shortness of breath at rest 12/10/2024 The patient was seen and examined in telemetry unit She has been weak and lethargic and complains to have cough and diarrhea No pain and/or shortness of breath and no fever no chills 12/11/2024 The patient was seen and examined in telemetry unit She has been feeling much better but remains generally weak and lethargic Has had physical therapy and recommended inpatient rehab Cough is controlled and the diarrhea seems to be under control too Review of Systems Review of Systems: all systems reviewed and are unremarkable except as noted below Physical Exam Physical Exam: Lying in bed without any acute distress Constitutional: + ill appearing and + thin Eyes: PERRL, conjunctivae normal, anicteric sclerae ENMT: external ear and nose normal, oropharynx normal Neck: trachea midline, no thyromegaly Respiratory: + respiratory distress ( minimal distres s at rest) Auscultation: + diminished lung sounds and + crackles ( occasional crackles at the bases) Cardiovascular: Rate/Rhythm: regular rate and regular rhythm; not tachycardic Heart Sounds: normal S1, normal S2 and + murmur Extremities: no edema Gastrointestinal (Abdomen): Inspection/Auscultation: normal bowel sounds; abdomen not distended Percussion/Palpation: abdomen soft; abdomen nontender Musculoskeletal: No acute arthritis involving any of the joint Neurologic: normal touch/pain/proprioception and moves all extremities; no focal motor deficits Lymphatic: no cervical or axillary lymphadenopathy Results & Data Results & Data Vital Signs (Past 12 Hours) Vital Signs Temp Pulse Pulse Resp BP Pulse Ox Pulse Ox 12/11/24 09:42 12/11/24 09:00 91 12/11/24 07:52 36.4 C L 62 18 146/63 H 95 12/11/24 07:40 74 12/11/24 02:37 36.5 C 67 16 136/70 92 12/11/24 00:27 36.7 C 64 16 111/61 94 O2 Del Method O2 Del Method 12/11/24 09:42 Room Air 12/11/24 09:00 Room Air 12/11/24 07:52 Room Air 12/11/24 07:40 12/11/24 02:37 Room Air 12/11/24 00:27 Room Air Laboratory Results Short CBC 12/11/24 Range/Units 04:27 WBC 11.96 H (4.8-10.8) K/ul Hgb 10.2 L (12.0-16.0) g/dl Hct 28.0 L (37.0-47.0) % Plt Count 320 (130-400) K/uL BMP 12/11/24 04:27 Sodium 127 L Potassium 3.8 Chloride 91 L Carbon Dioxide 29 BUN 15 Creatinine 0.72 Glucose 93 Calcium 8.9 Medications Administered Current Inpatient Medications Acetaminophen (Acetaminophen 325 Mg Tab) 650 mg PO Q4H PRN PRN Reason: Pain or Fever Stop: 01/06/25 09:24 Last Admin: 12/10/24 21:28 Dose: 650 mg Amiodarone HCl (Amiodarone 200 Mg Tab) 200 mg PO DAILY [facility] Stop: 01/06/25 09:24 Last Admin: 12/11/24 08:32 Dose: 200 mg Amlodipine Besylate (Amlodipine Besylate 5 Mg Tab) 5 mg PO DAILY [facility] Stop: 01/08/25 08:59 Last Admin: 12/11/24 08:32 Dose: 5 mg Artificial Tears (Artificial Tears) 1 drops OP QID [facility] Stop: 01/06/25 12:59 Last Admin: 12/11/24 08:32 Dose: 1 drops Aspirin (Aspirin 325 Mg Ectab) 325 mg PO DAILY [facility] Stop: 01/06/25 09:24 Last Admin: 12/11/24 08:31 Dose: 325 mg Benzonatate (Benzonatate 100 Mg Capsule) 100 mg PO TID [facility] Stop: 01/06/25 09:24 Last Admin: 12/11/24 08:51 Dose: 100 mg Buspirone HCl (Buspirone 5 Mg Tab) 5 mg PO BID PRN PRN Reason: Anxiety Stop: 01/06/25 09:24 Calcium/Vitamin D (Calcium 600mg + Vit D 400 Iu Tab) 1 tab PO DAILY [facility] Stop: 01/06/25 09:44 Last Admin: 12/11/24 08:39 Dose: 1 tab Cyanocobalamin (Cyanocobalamin (B-12) 500 Mcg Tablet) 1,000 mcg PO Q2D@0900 [facility] Stop: 01/06/25 09:44 Last Admin: 12/11/24 08:38 Dose: 1,000 mcg Enoxaparin Sodium (Enoxaparin Inj 40 Mg/0.4 Ml Syr) 40 mg SQ Q24H [facility] Stop: 01/06/25 09:59 Last Admin: 12/11/24 08:30 Dose: 40 mg Furosemide (Furosemide 40 Mg Tab) 40 mg PO BID [facility] Stop: 01/07/25 20:59 Last Admin: 12/11/24 08:31 Dose: 40 mg Hydrocodone Bit/Homatropine Methylb (Hydrocodone/Homatropine Syrup 5mg/1.5mg 5ml Udp) 5 ml PO Q6H PRN PRN Reason: Cough Stop: 12/24/24 09:45 Last Admin: 12/10/24 21:28 Dose: 5 ml Vancomycin HCl 1,250 mg/ (Sodium Chloride) 275 mls @ 200 mls/hr IV Q24H [facility] Stop: 12/22/24 07:59 Last Infusion: 12/11/24 10:27 Dose: Infused Lactobacillus Acidophilus (Advanced Probiotic 625 Mg Capsule) 625 mg PO DAILY [facility] Stop: 01/06/25 09:24 Last Admin: 12/11/24 08:31 Dose: 625 mg Levothyroxine Sodium (Levothyroxine Sodium 75 Mcg Tablet) 75 mcg PO DAILYBB [facility] Stop: 01/06/25 09:24 Last Admin: 12/11/24 06:00 Dose: 75 mcg Loperamide HCl (Loperamide Hcl 2 Mg Cap) 2 mg PO Q3H PRN PRN Reason: Diarrhea Stop: 01/09/25 09:46 Last Admin: 12/10/24 10:53 Dose: 2 mg Magnesium Oxide (Magnesium Oxide 400 Mg Tab) 400 mg PO DAILY [facility] Stop: 01/06/25 09:44 Last Admin: 12/11/24 08:31 Dose: 400 mg Metoprolol Succinate (Metoprolol Succ 50mg Ext Rel Tab) 50 mg PO BID [facility] Stop: 01/06/25 09:24 Last Admin: 12/11/24 08:32 Dose: 50 mg Miscellaneous Information (Vancomycin Consult Active) 1 each N/A UD PRN PRN Reason: Consult Stop: 01/06/25 22:49 Multivitamins/Minerals (Cerovite Adv Formula Tab) 1 tab PO DAILY [facility] Stop: 01/06/25 09:44 Last Admin: 12/11/24 08:38 Dose: 1 tab Nitroglycerin (Nitroglycerin Sl 0.4 Mg/Tab Tab) 0.4 mg SL Q5M PRN PRN Reason: Chest Pain Stop: 01/06/25 09:24 Potassium Chloride (Potassium Chloride Crtab 20 Meq Tabcr) 20 meq PO BID [facility] Stop: 01/08/25 11:29 Last Admin: 12/11/24 08:51 Dose: Not Given Valacyclovir HCl (Valacyclovir Hcl 500 Mg Tablet) 1,000 mg PO BID [facility] Stop: 12/15/24 20:59 Last Admin: 12/11/24 08:31 Dose: 1,000 mg
[2024-12-11] MEDS: DICLOFENAC SOD 1% GEL 100 GM TUBE EXT SCH (20:53)
[2024-12-12 07:33] LABS: Hematocrit (blood only) 29.4 % (37.0-47.0); Hemoglobin 10.0 g/dl (12.0-16.0); Immature Granulocytes # (auto) 0.20 K/uL (0.01-0.20); Immature Granulocytes % (auto) 1.5 %; Mean Corpuscular Hemoglobin 31.9 pg (25.0-34.0); Mean Corpuscular Volume 93.9 fL (80.0-100.0); Platelet Count 316 K/uL (130-400); RDW Standard Deviation 46.9 fL (36.4-46.3); Red Blood Count 3.13 M/uL (4.20-5.40); White Blood Count 13.60 K/ul (4.8-10.8)
[2024-12-12 07:47] LABS: Anion Gap 6.0 (3-11); Blood Urea Nitrogen 14.0 mg/dl (6-23); Calcium 8.9 mg/dl (8.6-10.3); Carbon Dioxide 33.0 mmol/L (21-32); Chloride 90.0 mmol/L (98-107); Creatinine Clr Calc Pharmacy 47.5 ml/min; Glucose 98.0 mg/dl (70-99(Fasting)); Potassium 3.9 mmol/L (3.5-5.1); Sodium 129.0 mmol/L (136-145)
--- NOTE | 2024-12-12 16:02 | Hospitalist Progress Note ---
Date of Service December 12, 2024 Assessment & Plan (1) Complicated urinary tract infection: Plan: 84-year-old female past medical significant for SIADH, hypothyroidism, hyperlipidemia, peripheral vascular disease, chronic heart failure with preserved ejection fraction, atrial fibrillation, hypertension, venous insufficiency, macular degeneration, GERD, CKD stage IIIb, history of symptomatic anemia, history of aspiration pneumonitis, history of generalized anxiety disorder, lives alone at home, ambulates with a walker comes because of weakness, dry cough and diarrhea. Patient was recently in the hospital and treated for complicated UTI. She has multidrug-resistant UTI. She she received 1 dose of gentamicin before discharge. Patient was tested positive for COVID on Sunday 11/26. Having dry cough. Weakness. She also started on Cipro on 11/30/2024 for UTI for 10 days. Yesterday had 6 episodes of diarrhea which prompted her to come to the ER. Patient is very hard of hearing and somewhat difficult to get history. Denies any headache. Denies body aches. Has stuffy nose. No sore throat. Complains of dry mouth and dry throat. Denies chest pain or shortness of breath. No nausea. No abdominal pain. Status post Cramer catheter in the ER. Hemodynamics are okay. MRSA bacteremia 2 out of 2 bottles Complicated urinary tract infection Recent cultures show multidrug-resistant Enterobacter cloacae complex ER started meropenem which will be continued Status post Cramer Urine culture has been negative Blood cultures growing Staph aureusMRSA and she was added with intravenous vancomycin on top of meropenem Infectious disease has been consulted for further recommendation about antibiotic She has been feeling a little better as of today Appreciate ID input and recommendation to continue vancomycin for now and meropenem has been discontinued No fever no chills and the patient is feeling better clinically She has been getting valacyclovir for herpes infection Clinically much better but remains weak and complains of She will be given Hycodan Remains afebrile and the white count is coming down to 11.96. Cough is controlled and does not have any shortness of breath Repeat blood cultures have been negative so far-likely to go on oral antibiotic for a total of 14 days. Will get advice from ID specialist tomorrow Awaiting PT and OT evaluation prior to discharge Recurrent UTIs Status post Cramer and has been since seen by urologist Urine culture has been negative this time Will advise to have outpatient appointment with a urologist following discharge Hyponatremia History of SIADH Presented with sodium of 121 Will follow serial BMPs Currently getting gentle fluids normal saline at 50 mL/h for 1 L Will follow his serum osmolality, urine osmolality and urine sodium levels Slow correction Nephro consult- appreciate nephrology input and recommendation Sodium level has improved a little bit and will continue current fluid restriction and no salt tablet will be given Sodium level remains on the lower side at 128 and will continue fluid restriction Sodium level remains stable in the lower level at 127 Sodium level is up at 129 Leukocytosis- secondary to ongoing infection and bacteremia From above Will follow repeat labs As above Diarrhea Stool studies unremarkable C. difficile negative Likely secondary to recent use of antibiotic for UTI Stool has been negative for any C. difficile colitis Will give Imodium as needed Diarrhea is controlled COVID Diagnosed on 11/26/2024-on home test Supportive care COVID precautions No x-ray evidence of COVID-pneumonia will be given cough medicine as needed Has minimal cough but no COVID pneumonia and has been saturating normally on room air No symptoms and has been saturating normally on room air Chronic heart failure with preserved ejection fraction Has some lower extremity edema ,to continue home Lasix Monitor for volume overload Will continue with the oral Lasix as advised by the accounting technician Lower extremity edema Continue home Lasix Will check Dopplers-no DVT as of 11/27/2023 No edema Paroxysmal atrial fibrillation On amiodarone and metoprolol full dose aspirin Abnormal EKG Left bundle branch block Prolonged QTc Avoid QT prolonging drugs Follow repeat EKG CKD stage III Creatinine 1.06 We will follow repeat labs Hypothyroidism On Synthyroid Hypertension On amlodipine and metoprolol Monitor-controlled Cirrhosis and hepatomegaly pancreatic duct dilatation and small pelvic cyst Follow-up with GI DVT prophylaxis Lovenox Disposition Med/telemetry PT recommended inpatient rehab Admission and Anticipated Discharge Date Admission Date: December 07, 2024 Subjective 12/08/2024 The patient was seen and examined in telemetry unit and in the COVID room She has been feeling little better but remains lethargic Minimal cough without any shortness of breath 12/09/2024 The patient was seen and examined in telemetry unit in presence of the daughter and the granddaughter She has been feeling much better but remains generally weak Has cough without any phlegm and no shortness of breath at rest 12/10/2024 The patient was seen and examined in telemetry unit She has been weak and lethargic and complains to have cough and diarrhea No pain and/or shortness of breath and no fever no chills 12/11/2024 The patient was seen and examined in telemetry unit She has been feeling much better but remains generally weak and lethargic Has had physical therapy and recommended inpatient rehab Cough is controlled and the diarrhea seems to be under control too 12/12/2024 The patient was seen and examined in medical floor She has been feeling much better but remains weak and lethargic Cough is improved no shortness of breath and does not have any fever no chills Awaiting placement-continue PT Review of Systems Review of Systems: all systems reviewed and are unremarkable except as noted below Physical Exam Physical Exam: Lying in bed without any acute distress Constitutional: + ill appearing and + thin Eyes: PERRL, conjunctivae normal, anicteric sclerae ENMT: external ear and nose normal, oropharynx normal Neck: trachea midline, no thyromegaly Respiratory: + respiratory distress ( minimal distres s at rest) Auscultation: + diminished lung sounds and + crackles ( occasional crackles at the bases) Cardiovascular: Rate/Rhythm: regular rate and regular rhythm; not tachycardic Heart Sounds: normal S1, normal S2 and + murmur Extremities: no edema Gastrointestinal (Abdomen): Inspection/Auscultation: normal bowel sounds; abdomen not distended Percussion/Palpation: abdomen soft; abdomen nontender Musculoskeletal: No acute arthritis involving any of the joint Neurologic: normal touch/pain/proprioception and moves all extremities; no focal motor deficits Lymphatic: no cervical or axillary lymphadenopathy Results & Data Results & Data Vital Signs (Past 12 Hours) Vital Signs Temp Pulse Resp BP BP Pulse Ox O2 Del Method 12/12/24 14:39 36.4 C L 79 18 139/62 94 Room Air 12/12/24 07:46 36.5 C 68 18 138/60 96 Room Air Laboratory Results Short CBC 12/12/24 Range/Units 06:53 WBC 13.60 H (4.8-10.8) K/ul Hgb 10.0 L (12.0-16.0) g/dl Hct 29.4 L (37.0-47.0) % Plt Count 316 (130-400) K/uL BMP 12/12/24 06:53 Sodium 129 L Potassium 3.9 Chloride 90 L Carbon Dioxide 33 H BUN 14 Creatinine 0.72 Glucose 98 Calcium 8.9 Medications Administered Current Inpatient Medications Acetaminophen (Acetaminophen 325 Mg Tab) 650 mg PO Q4H PRN PRN Reason: Pain or Fever Stop: 01/06/25 09:24 Last Admin: 12/10/24 21:28 Dose: 650 mg Amiodarone HCl (Amiodarone 200 Mg Tab) 200 mg PO DAILY [facility] Stop: 01/06/25 09:24 Last Admin: 12/12/24 08:52 Dose: 200 mg Amlodipine Besylate (Amlodipine Besylate 5 Mg Tab) 5 mg PO DAILY [facility] Stop: 01/08/25 08:59 Last Admin: 12/12/24 08:53 Dose: 5 mg Artificial Tears (Artificial Tears) 1 drops OP QID [facility] Stop: 01/06/25 12:59 Last Admin: 12/12/24 14:46 Dose: 1 drops Aspirin (Aspirin 325 Mg Ectab) 325 mg PO DAILY [facility] Stop: 01/06/25 09:24 Last Admin: 12/12/24 08:52 Dose: 325 mg Benzonatate (Benzonatate 100 Mg Capsule) 100 mg PO TID [facility] Stop: 01/06/25 09:24 Last Admin: 12/12/24 14:46 Dose: 100 mg Buspirone HCl (Buspirone 5 Mg Tab) 5 mg PO BID PRN PRN Reason: Anxiety Stop: 01/06/25 09:24 Calcium/Vitamin D (Calcium 600mg + Vit D 400 Iu Tab) 1 tab PO DAILY [facility] Stop: 01/06/25 09:44 Last Admin: 12/12/24 08:53 Dose: 1 tab Cyanocobalamin (Cyanocobalamin (B-12) 500 Mcg Tablet) 1,000 mcg PO Q2D@0900 [facility] Stop: 01/06/25 09:44 Last Admin: 12/11/24 08:38 Dose: 1,000 mcg Diclofenac Sodium (Diclofenac Sod 1% Gel 100 Gm Tube) 2 gm EXT BID [facility]; Protocol Stop: 01/10/25 20:59 Last Admin: 12/12/24 08:51 Dose: 2 gm Enoxaparin Sodium (Enoxaparin Inj 40 Mg/0.4 Ml Syr) 40 mg SQ Q24H [facility] Stop: 01/06/25 09:59 Last Admin: 12/12/24 08:51 Dose: 40 mg Furosemide (Furosemide 40 Mg Tab) 40 mg PO BID [facility] Stop: 01/07/25 20:59 Last Admin: 12/12/24 08:52 Dose: 40 mg Hydrocodone Bit/Homatropine Methylb (Hydrocodone/Homatropine Syrup 5mg/1.5mg 5ml Udp) 5 ml PO Q6H PRN PRN Reason: Cough Stop: 12/24/24 09:45 Last Admin: 12/10/24 21:28 Dose: 5 ml Vancomycin HCl 1,250 mg/ (Sodium Chloride) 275 mls @ 200 mls/hr IV Q24H [facility] Stop: 12/22/24 07:59 Last Infusion: 12/12/24 10:56 Dose: Infused Lactobacillus Acidophilus (Advanced Probiotic 625 Mg Capsule) 625 mg PO DAILY [facility] Stop: 01/06/25 09:24 Last Admin: 12/12/24 08:52 Dose: 625 mg Levothyroxine Sodium (Levothyroxine Sodium 75 Mcg Tablet) 75 mcg PO DAILYBB [facility] Stop: 01/06/25 09:24 Last Admin: 12/12/24 05:31 Dose: 75 mcg Loperamide HCl (Loperamide Hcl 2 Mg Cap) 2 mg PO Q3H PRN PRN Reason: Diarrhea Stop: 01/09/25 09:46 Last Admin: 12/10/24 10:53 Dose: 2 mg Magnesium Oxide (Magnesium Oxide 400 Mg Tab) 400 mg PO DAILY [facility] Stop: 01/06/25 09:44 Last Admin: 12/12/24 08:53 Dose: 400 mg Metoprolol Succinate (Metoprolol Succ 50mg Ext Rel Tab) 50 mg PO BID [facility] Stop: 01/06/25 09:24 Last Admin: 12/12/24 08:52 Dose: 50 mg Miscellaneous Information (Vancomycin Consult Active) 1 each N/A UD PRN PRN Reason: Consult Stop: 01/06/25 22:49 Multivitamins/Minerals (Cerovite Adv Formula Tab) 1 tab PO DAILY [facility] Stop: 01/06/25 09:44 Last Admin: 12/12/24 08:52 Dose: 1 tab Nitroglycerin (Nitroglycerin Sl 0.4 Mg/Tab Tab) 0.4 mg SL Q5M PRN PRN Reason: Chest Pain Stop: 01/06/25 09:24 Potassium Chloride (Potassium Chloride Crtab 20 Meq Tabcr) 20 meq PO BID [facility] Stop: 01/08/25 11:29 Last Admin: 12/12/24 08:54 Dose: Not Given Valacyclovir HCl (Valacyclovir Hcl 500 Mg Tablet) 1,000 mg PO BID [facility] Stop: 12/15/24 20:59 Last Admin: 12/12/24 08:52 Dose: 1,000 mg
[2024-12-13 07:28] LABS: Hematocrit (blood only) 28.7 % (37.0-47.0); Hemoglobin 10.2 g/dl (12.0-16.0); Immature Granulocytes # (auto) 0.23 K/uL (0.01-0.20); Immature Granulocytes % (auto) 1.5 %; Mean Corpuscular Hemoglobin 33.0 pg (25.0-34.0); Mean Corpuscular Volume 92.9 fL (80.0-100.0); Platelet Count 350 K/uL (130-400); RDW Standard Deviation 45.9 fL (36.4-46.3); Red Blood Count 3.09 M/uL (4.20-5.40); White Blood Count 15.80 K/ul (4.8-10.8)
[2024-12-13 07:44] LABS: Anion Gap 7.0 (3-11); Blood Urea Nitrogen 15.0 mg/dl (6-23); Calcium 8.9 mg/dl (8.6-10.3); Carbon Dioxide 32.0 mmol/L (21-32); Chloride 91.0 mmol/L (98-107); Creatinine Clr Calc Pharmacy 45.6 ml/min; Glucose 113.0 mg/dl (70-99(Fasting)); Potassium 3.4 mmol/L (3.5-5.1); Sodium 130.0 mmol/L (136-145)
--- NOTE | 2024-12-13 15:26 | XRay Report ---
XR chest 1V portable CLINICAL HISTORY: PICC tip placement COMPARISON STUDY: 12/07/2024 FINDINGS: Right PICC line tip is at the cavoatrial junction. There is stable cardiomegaly with mild p ulmonary vascular congestion. There is increased opacity in the lung bases with blunting of the costo phrenic angles. No pneumothorax. IMPRESSION: 1. Well-positioned PICC line. 2. CHF with small bilateral pleural effusions and associated lung base consolidation, increased. ACT 112: Negative or not required by law. Electronically signed by: Real Thurman M.D. 12/13/2024 3:25 PM
--- NOTE | 2024-12-13 18:17 | Hospitalist Progress Note ---
Date of Service December 13, 2024 Assessment & Plan (1) Complicated urinary tract infection: Plan: per previous hospitalist notes with addendum: 84-year-old female past medical significant for SIADH, hypothyroidism, hyperlipidemia, peripheral vascular disease, chronic heart failure with preserved ejection fraction, atrial fibrillation, hypertension, venous insufficiency, macular degeneration, GERD, CKD stage IIIb, history of symptomatic anemia, history of aspiration pneumonitis, history of generalized anxiety disorder, lives alone at home, ambulates with a walker comes because of weakness, dry cough and diarrhea. Patient was recently in the hospital and t reated for complicated UTI. She has multidrug-resistant UTI. She she received 1 dose of gentamicin before discharge. Patient was tested positive for COVID on Sunday 11/26. Having dry cough. Weakness. She also started on Cipro on 11/30/2024 for UTI for 10 days. Yesterday had 6 episodes of diarrhea which prompted her to come to the ER. Patient is very hard of hearing and somewhat difficult to get history. Denies any headache. Denies body aches. Has stuffy nose. No sore throat. Complains of dry mouth and dry throat. Denies chest pain or shortness of breath. No nausea. No abdominal pain. Status post Cramer catheter in the ER. Hemodynamics are okay. MRSA bacteremia 2 out of 2 bottles Complicated urinary tract infection Recent cultures show multidrug-resistant Enterobacter cloacae complex ER started meropenem which will be continued Status post Cramer Urine culture has been negative Blood cultures growing Staph aureusMRSA and she was added with intravenous vancomycin on top of meropenem Infectious disease has been consulted for further recommendation about antibiotic She has been feeling a little better as of today Appreciate ID input and recommendation to continue vancomycin for now and meropenem has been discontinued No fever no chills and the patient is feeling better clinically She has been getting valacyclovir for herpes infection Clinically much better but remains weak and complains of She will be given Hycodan Remains afebrile and the white count is coming down to 11.96. Cough is controlled and does not have any shortness of breath Repeat blood cultures have been negative so far-likely to go on oral antibiotic for a total of 14 days. Will get advice from ID specialist tomorrow Awaiting PT and OT evaluation prior to discharge 12/[address] Ryder recommend IV Vanco x 4 weeks total Recurrent UTIs Status post Cramer and has been since seen by urologist Urine culture has been negative this time Will advise to have outpatient appointment with a urologist following discharge Hyponatremia History of SIADH Presented with sodium of 121 Will follow serial BMPs Currently getting gentle fluids normal saline at 50 mL/h for 1 L Will follow his serum osmolality, urine osmolality and urine sodium levels Slow correction Nephro consult- appreciate nephrology input and recommendation Sodium level has improved a little bit and will continue current fluid restriction and no salt tablet will be given Sodium level remains on the lower side at 128 and will continue fluid restriction Sodium level remains stable in the lower level at 127 Sodium level is up at 130 Leukocytosis- secondary to ongoing infection and bacteremia From above Will follow repeat labs As above Diarrhea Stool studies unremarkable C. difficile negative Likely secondary to recent use of antibiotic for UTI Stool has been negative for any C. difficile colitis Will give Imodium as needed -- (+) 2 loose BMs today repeat stool PCR and C diff test COVID Diagnosed on 11/26/2024-on home test Supportive care COVID precautions No x-ray evidence of COVID-pneumonia will be given cough medicine as needed Has minimal cough but no COVID pneumonia and has been saturating normally on room air No symptoms and has been saturating normally on room air Chronic heart failure with preserved ejection fraction Has some lower extremity edema ,to continue home Lasix Monitor for volume overload Will continue with the oral Lasix as advised by the kiln cleaner Lower extremity edema Continue home Lasix Will check Dopplers-no DVT as of 11/27/2023 No edema Paroxysmal atrial fibrillation On amiodarone and metoprolol full dose aspirin Abnormal EKG Left bundle branch block Prolonged QTc Avoid QT prolonging drugs Follow repeat EKG CKD stage III Creatinine 1.06 We will follow repeat labs Hypothyroidism On Synthyroid Hypertension On amlodipine and metoprolol Monitor-controlled Cirrhosis and hepatomegaly pancreatic duct dilatation and small pelvic cyst Follow-up with GI DVT prophylaxis Lovenox Disposition Med/telemetry PT recommended inpatient rehab Admission and Anticipated Discharge Date Admission Date: December 07, 2024 Subjective ff up for MRSA bacteremia, etc seen resting in bed,not in distress states she feels tired, still coughing no shortness of breath no chest pain, palpitations, dizziness no other symptoms Review of Systems Review of Systems: all noted and negative except for above Physical Exam 2 Physical Exam: General- oriented x 3, not in distress, speaks in sentences with no effort or accessory muscle use Eyes- anicteric Neck- no JVD Lungs- clear breath sounds bilaterally, no rales/wheezes Heart- normal rate, regular rhythm; no murmurs Abdomen- normal bowel sounds, nondistended, soft, nontender Extremities- no pretibial edema, no calf tenderness Neuro- alert, oriented x 3; no gross focal neurologic deficits Skin- warm & dry Results & Data Results & Data Vital Signs (Past 12 Hours) Vital Signs Temp Pulse Resp BP Pulse Ox O2 Del Method 12/13/24 15:10 36.6 C 65 18 127/74 95 Room Air 12/13/24 07:09 36.5 C 67 16 129/71 95 Room Air all noted and reviewed including below
[2024-12-14 06:49] LABS: Creatinine Clr Calc Pharmacy 42.7 ml/min
[2024-12-14 07:28] VITALS: BP 128/78; PULSE 69; RESP 18; TEMP 97.5; O2SAT 95
[2024-12-14 10:19] LABS: Anion Gap 10.0 (3-11); Blood Urea Nitrogen 19.0 mg/dl (6-23); Calcium 8.8 mg/dl (8.6-10.3); Carbon Dioxide 30.0 mmol/L (21-32); Chloride 92.0 mmol/L (98-107); Glucose 92.0 mg/dl (70-99(Fasting)); Potassium 3.6 mmol/L (3.5-5.1); Sodium 132.0 mmol/L (136-145)
[2024-12-14 10:23] LABS: Hematocrit (blood only) 28.3 % (37.0-47.0); Hemoglobin 9.6 g/dl (12.0-16.0); Immature Granulocytes # (auto) 0.20 K/uL (0.01-0.20); Immature Granulocytes % (auto) 1.6 %; Mean Corpuscular Hemoglobin 32.4 pg (25.0-34.0); Mean Corpuscular Volume 95.6 fL (80.0-100.0); Platelet Count 309 K/uL (130-400); RDW Standard Deviation 48.6 fL (36.4-46.3); Red Blood Count 2.96 M/uL (4.20-5.40); White Blood Count 12.43 K/ul (4.8-10.8)
[2024-12-14 11:41] LABS: Iron 29.0 mcg/dl (35-150)
--- NOTE | 2024-12-14 12:25 | Discharge Summary ---
Discharge Summary Date of Service December 14, 2024 Principal Dx & Hospital Course #1 = Principal Diagnosis (1) Bacteremia due to methicillin resistant Staphylococcus aureus: (2) COVID-19: (3) Hyponatremia: (4) HSV (herpes simplex virus) infection: (5) Complicated urinary tract infection: per previous hospitalist notes with addendum: 84-year-old female past medical significant for SIADH, hypothyroidism, hyperlipidemia, peripheral vascular disease, chronic heart failure with preserved ejection fraction, atrial fibrillation, hypertension, venous insufficiency, macular degeneration, GERD, CKD stage IIIb, history of symptomatic anemia, history of aspiration pneumonitis, history of generalized anxiety disorder, lives alone at home, ambulates with a walker comes because of weakness, dry cough and diarrhea. Patient was recently in the hospital and t reated for complicated UTI. She has multidrug-resistant UTI. She she received 1 dose of gentamicin before discharge. Patient was tested positive for COVID on Sunday 11/26. Having dry cough. Weakness. She also started on Cipro on 11/30/2024 for UTI for 10 days. Yesterday had 6 episodes of diarrhea which prompted her to come to the ER. Patient is very hard of hearing and somewhat difficult to get history. Denies any headache. Denies body aches. Has stuffy nose. No sore throat. Complains of dry mouth and dry throat. Denies chest pain or shortness of breath. No nausea. No abdominal pain. Status post Cramer catheter in the ER. Hemodynamics are okay. MRSA bacteremia Blood cultures growing Staph aureusMRSA and she was added with intravenous vancomycin on top of meropenem Infectious disease has been consulted for further recommendation about antibiotic Appreciate ID input and recommendation to continue vancomycin and meropenem has been discontinued No fever no chills and the patient is feeling better clinically She has been getting valacyclovir for herpes infection Remains afebrile and the white count is coming down to 11.96. Cough is controlled and does not have any shortness of breath Repeat blood cultures have been negative so far 12/14 repeat blood cultures negative Unclear source of MRSA bacteremia, but patient has recent COVID infection, possibly from respiratory tract as per ID discussed with ID Dr. Ryder recommend IV Vanco x 4 weeks total patient will need 23 more days of IV vancomycin PICC line placed yesterday Weekly CBC, comprehensive metabolic profile weekly while on IV vancomycin Recurrent UTIs Complicated urinary tract infection Recent cultures show multidrug-resistant Enterobacter cloacae complex repeat urine culture during this admission: negative Status post Cramer and has been since seen by urologist -- d/c Cramer, Trial of voiding no urinary retention history as per daughter -- outpatient urology follow-up Hyponatremia History of SIADH Presented with sodium of 121 Currently getting gentle fluids normal saline at 50 mL/h for 1 L Nephro consult- appreciate nephrology input and recommendation Lasix increased from 40 mg daily to 40 mg twice a day potassium also increased from daily to twice a day sodium gradually increased, currently 131 Continue Lasix 40 mg p.o. twice daily needed with potassium Monitor volume status and sodium level closely Adjust Lasix accordingly Leukocytosis- secondary to ongoing infection and bacteremia From above improving Diarrhea Stool studies unremarkable C. difficile negative Likely secondary to recent use of antibiotic for UTI Stool has been negative for any C. difficile colitis Will give Imodium as needed -- resolved COVID Diagnosed on 11/26/2024-on home test Supportive care COVID precautions No x-ray evidence of COVID-pneumonia will be given cough medicine as needed Has minimal cough but no COVID pneumonia and has been saturating normally on room air No symptoms and has been saturating normally on room air -- per infection control committee, COVID isolation can be removed on December 17, 2024 Chronic heart failure with preserved ejection fraction Has some lower extremity edema ,to continue home Lasix Monitor for volume overload Will continue with the oral Lasix as advised by the hat and cap parts cutter hand Lower extremity edema Continue home Lasix Will check Dopplers-no DVT as of 11/27/2023 No edema Paroxysmal atrial fibrillation On amiodarone and metoprolol full dose aspirin Abnormal EKG Left bundle branch block Prolonged QTc Avoid QT prolonging drugs follow repeat EKG CKD stage III Creatinine 1.06 Hypothyroidism On Synthyroid Hypertension On amlodipine and metoprolol Monitor-controlled Cirrhosis and hepatomegaly pancreatic duct dilatation and small pelvic cyst Follow-up with GI DVT prophylaxis Lovenox Disposition transition to intermediate facility Notes For Next Care Provider Medication Changes From Visit IV vancomycin x 23 more days Valacyclovir x 1 more day Lasix changed from 40 mg daily to twice daily Potassium changed to twice a day Please refer to medical reconciliation Admission HPI Per Admitting Provider 84-year-old female past medical significant for SIADH, hypothyroidism, hyperlipidemia, peripheral vascular disease, chronic heart failure with preserve d ejection fraction, atrial fibrillation, hypertension, venous insufficiency, macular degeneration, GERD, CKD stage IIIb, history of symptomatic anemia, history of aspiration pneumonitis, history of generalized anxiety disorder, lives alone at home, ambulates with a walker comes because of weakness, dry cough and diarrhea. Patient was recently in the hospital and treated for complicated UTI. She has multidrug-resistant UTI. She she received 1 dose of gentamicin before discharge. Patient was tested positive for COVID on Sunday 11/26. Having dry cough. Weakness. She also started on Cipro on 11/30/2024 for UTI for 10 days. Yesterday had 6 episodes of diarrhea which prompted her to come to the ER. Patient is very hard of hearing and somewhat difficult to get history. Denies any headache. Denies body aches. Has stuffy nose. No sore throat. Complains of dry mouth and dry throat. Denies chest pain or shortness of breath. No nausea. No abdominal pain. Status post Cramer catheter in the ER. Hemodynamics are okay. Past medical history. As mentioned above Past surgical history. Breast lesion excision. Laparoscopic cholecystectomy. Repair of inguinal hernia. Total abdominal hysterectomy with removal of tubes. Umbilical hernia repair. Social history. No smoking. No alcohol. No drug use. Family history. No family history of file. Admission Exam Per Admitting Provider General- Not in distress Head- atraumatic Eyes- PERRL. ENT- oropharynx dry Neck- supple, no JVD. Lungs- clear to auscultation no wheezing or crackles Heart- regular rhythm; no murmur, no gallop. Abdomen- normal bowel sounds, soft, nontender, no distension Extremities- b/l lower extremity edema present, no erythema seen Neuro- alert, oriented . hard of hearing. PERRL, no facial palsy; no dysarthria; moves extremities Discharge Exam General- oriented x 3, not in distress, speaks in sentences with no effort or accessory muscle use Eyes- anicteric Neck- no JVD Lungs- clear breath sounds bilaterally, no rales/wheezes Heart- normal rate, regular rhythm; no murmurs Abdomen- normal bowel sounds, nondistended, soft, nontender Extremities- no pretibial edema, no calf tenderness right arm: PICC line in place, no edema/erythema/bleeding/discharge Neuro- alert, oriented x 3; no gross focal neurologic deficits Skin- warm & dry Updated Medication List Medication Instructions Recorded Confirmed Type vit C 250 mg-vit E 90 mg-zinc 40 2 tab PO DAILY 12/07/24 12/07/24 History mg-copper 1 [id number] capsule (PreserVision AREDS-2) L.acidop,casei,lactis,rham-B.lact,nicole 2 cap PO DAILY #60 caps 12/14/24 Rx 625 mg (10 billion cell) capsule (Advanced Probiotic) amiodarone 200 mg tablet 200 mg PO DAILY 30 days #30 tabs 12/14/24 Rx amlodipine 5 mg tablet 5 mg PO DAILY 30 days #30 tabs 12/14/24 Rx aspirin 325 mg tablet 325 mg PO DAILY 30 days #30 tabs 12/14/24 Rx benzonatate 100 mg capsule 100 mg PO TID PRN cough #20 caps 12/14/24 Rx buspirone 5 mg tablet 5 mg PO BID PRN Anxiety #14 tabs 12/14/24 Rx calcium 600 mg (as 1 tab PO DAILY 3 days #3 tabs 12/14/24 Rx carbonate)-vitamin D3 10 mcg (400 unit) tablet (Calcium 600 + D(3)) cyanocobalamin (vitamin B-12) 1,000 mcg PO Q OTHER DAY #30 tabs 12/14/24 Rx 1,000 mcg tablet enoxaparin 40 mg/0.4 mL 40 mg (0.4 mL) subcut Q24H 30 days 12/14/24 Rx subcutaneous syringe (Lovenox) #12 mL furosemide 40 mg tablet 40 mg PO BID 30 days #60 tabs 12/14/24 Rx guaifenesin 100 mg/5 mL oral liquid 100 mg (5 mL) PO Q6H PRN cough 12/14/24 Rx #100 mL levothyroxine 75 mcg tablet 75 mcg PO DAILY #30 tabs 12/14/24 Rx magnesium oxide 400 mg PO DAILY #30 tabs 12/14/24 Rx methenamine hippurate 1 gram tablet 1 g PO BID 30 days #60 tabs 12/14/24 Rx metoprolol succinate 50 mg 50 mg PO BID 30 days #60 tabs 12/14/24 Rx tablet,extended release 24 hr multivitamin with minerals 1 tab PO DAILY #30 tabs 12/14/24 Rx peg 400-propylene glycol 0.4 %-0.3 1 drp ophthalmic (eye) QID #30 mL 12/14/24 Rx % eye drops (Systane Ultra) potassium chloride 20 mEq 20 meq PO BID 30 days #60 tabs 12/14/24 Rx tablet,extended release(part/cryst) valacyclovir 500 mg tablet 1,000 mg (2 x 500 mg) PO BID 1 day 12/14/24 Rx #4 tabs vancomycin 1.25 gram intravenous 1.25 g IV Q24H 23 days 12/14/24 Rx solution Hospital Stay Data Consultations 12/07/24 05:14 ED Decision to Admit Stat 12/07/24 09:25 Consult Nephrology Routine 12/08/24 08:17 Consult Infectious Diseases Routine Diagnostic Imagining Performed Laboratory Results WBC 12.43 K/ul (4.8-10.8) H 12/14/24 05:25 RBC 2.96 M/uL (4.20-5.40) L 12/14/24 05:25 Hgb 9.6 g/dl (12.0-16.0) L 12/14/24 05:25 Hct 28.3 % (37.0-47.0) L 12/14/24 05:25 MCV 95.6 fL (80.0-100.0) 12/14/24 05:25 MCH 32.4 pg (25.0-34.0) 12/14/24 05:25 MCHC 33.9 g/dL (32.0-36.0) 12/14/24 05:25 RDW Std Deviation 48.6 fL (36.4-46.3) H 12/14/24 05:25 RDW Coeff of Ursula 13.9 % (11.5-14.5) 12/14/24 05:25 Plt Count 309 K/uL (130-400) 12/14/24 05:25 MPV 9.5 fL (9.4-12.4) 12/14/24 05:25 Immature Gran % (Auto) 1.6 % 12/14/24 05:25 Neut % (Auto) 70.3 % 12/14/24 05:25 Lymph % (Auto) 12.7 % 12/14/24 05:25 [place] % (Auto) 13.3 % 12/14/24 05:25 Eos % (Auto) 1.5 % 12/14/24 05:25 Baso % (Auto) 0.6 % 12/14/24 05:25 Neut # (Auto) 8.74 K/uL (1.40-6.50) H 12/14/24 05:25 Lymph # (Auto) 1.58 K/uL (1.20-3.40) 12/14/24 05:25 [place] # (Auto) 1.65 K/uL (0.11-0.59) H 12/14/24 05:25 Eos # (Auto) 0.19 K/uL (0.00-0.50) 12/14/24 05:25 Baso # (Auto) 0.07 K/uL (0.00-0.20) 12/14/24 05:25 Immature Gran # (Auto) 0.20 K/uL (0.01-0.20) 12/14/24 05:25 Absolute Nucleated RBC 0.03 K/uL (0.00-0.12) 12/11/24 04:27 Nucleated RBC % (auto) 0.3 % 12/11/24 04:27 Hypersegmented Neuts 1+ 12/08/24 06:03 RBC Morphology Unremarkable 12/07/24 03:35 Polychromasia 1+ 12/08/24 06:03 Sodium 132 mmol/L (136-145) L 12/14/24 05:31 Potassium 3.6 mmol/L (3.5-5.1) 12/14/24 05:31 Chloride 92 mmol/L (98-107) L 12/14/24 05:31 Carbon Dioxide 30 mmol/L (21-32) 12/14/24 05:31 Anion Gap 10 (3-11) 12/14/24 05:31 BUN 19 mg/dl (6-23) 12/14/24 05:31 Creatinine 0.80 mg/dl (0.6-1.2) 12/14/24 05:31 Est Cr Clr Drug Dosing 42.7 ml/min 12/14/24 05:31 eGFR 71.71 12/14/24 05:31 BUN/Creatinine Ratio 23.8 (10-20) H 12/14/24 05:31 Glucose 92 mg/dl (70-99(Fasting)) 12/14/24 05:31 Osmolality 267 mOsm/kg (280-300) L 12/07/24 09:43 Lactate 1.5 mmol/L (0.4-2.0) 12/07/24 03:46 Calcium 8.8 mg/dl (8.6-10.3) 12/14/24 05:31 Phosphorus 3.4 mg/dl (2.5-4.9) 12/09/24 04:44 Magnesium 2.1 mg/dl (1.7-2.4) 12/08/24 06:03 Iron 29 mcg/dl (35-150) L 12/14/24 05:31 Total Bilirubin 0.4 mg/dl (0.2-1.0) 12/07/24 03:35 Direct Bilirubin 0.1 mg/dl (0-0.2) 12/07/24 03:35 AST 25 U/L (13-39) 12/07/24 03:35 ALT 22 U/L (7-52) 12/07/24 03:35 Alkaline Phosphatase 118 U/L (34-104) H 12/07/24 03:35 Troponin I High Sens 13.1 pg/ml (0-14) 12/07/24 03:35 B-Natriuretic Peptide 533 pg/ml (0-100) H 12/07/24 03:38 Total Protein 8.2 gm/dl (6.0-8.3) 12/07/24 03:35 Albumin 3.8 gm/dl (3.4-5.0) 12/07/24 03:35 Vitamin B12 1197 pg/ml (180-914) H 12/14/24 05:31 Folate > 22.30 ng/ml (>5.38) 12/14/24 05:31 Procalcitonin 0.09 ng/ml (0-0.5) 12/07/24 03:35 TSH 0.795 uIu/ml (0.300-4.500) 12/07/24 03:35 Urine Color Yellow 12/07/24 04:05 Urine Appearance Cloudy (Clear) A 12/07/24 04:05 Urine pH 5.5 (4.5-7.5) 12/07/24 04:05 Ur Specific [place] 1.018 (1.000-1.030) 12/07/24 04:05 Urine Protein 2+ (Negative) H 12/07/24 04:05 Urine Glucose (UA) Negative (Negative) 12/07/24 04:05 Urine Ketones Trace (Negative) H 12/07/24 04:05 Urine Blood Negative (Negative) 12/07/24 04:05 Urine Nitrite Negative (Negative) 12/07/24 04:05 Urine Bilirubin Negative (Negative) 12/07/24 04:05 Urine Urobilinogen Negative (Negative) 12/07/24 04:05 Ur Leukocyte Esterase 2+ (Negative) H 12/07/24 04:05 Urine WBC (Auto) >50 /hpf (0-5) H 12/07/24 04:05 Urine RBC (Auto) 3-5 /hpf (0-2) H 12/07/24 04:05 U Hyaline Cast (Auto) 11-20 /lpf (0-2) H 12/07/24 04:05 U Epithel Cells (Auto) 6-10 /hpf (0-2) H 12/07/24 04:05 Urine Bacteria (Auto) None Seen (None Seen) 12/07/24 04:05 Hyaline Casts Present /lpf (None Presnt) A 12/07/24 04:05 Urine Osmolality 359 mOsm/kg (500-800) L 12/07/24 04:10 Ur Random Sodium 21 mmol/L 12/07/24 04:10 Urine Comment 12/07/24 04:05 Stl C. cayetanensis PCR Not Detected (NotDetected) 12/07/24 05:30 Stool Rotavirus A PCR Not Detected (NotDetected) 12/07/24 05:30 Stl Adenov F 40/41 PCR Not Detected (NotDetected) 12/07/24 05:30 Stool Astrovirus (PCR) Not Detected (NotDetected) 12/07/24 05:30 Stool Campylobacter PCR Not Detected (NotDetected) 12/07/24 05:30 Stl C. diff Tox B Gene Negative Cdiff Gene (Neg) 12/07/24 05:30 Stl C. diff [id number] NEGATIVE 12/07/24 05:30 Stool Cryptosporidium PCR Not Detected (NotDetected) 12/07/24 05:30 Stl E.coli Shiga Tox PCR Not Detected (NotDetected) 12/07/24 05:30 Stl Enterotoxigenic E PCR Not Detected (NotDetected) 12/07/24 05:30 Stool EPEC (PCR) Not Detected (NotDetected) 12/07/24 05:30 Stool EAEC (PCR) Not Detected (NotDetected) 12/07/24 05:30 Stl E. histolytica PCR Not Detected (NotDetected) 12/07/24 05:30 Stool Giardia Lamblia PCR Not Detected (NotDetected) 12/07/24 05:30 Stool Salmonella PCR Not Detected (NotDetected) 12/07/24 05:30 Stool Sapovirus (PCR) Not Detected (NotDetected) 12/07/24 05:30 Stl P. shigelloides PCR Not Detected (NotDetected) 12/07/24 05:30 Stl Shigella/EIEC PCR Not Detected (NotDetected) 12/07/24 05:30 St Y.enterocolitica PCR Not Detected (NotDetected) 12/07/24 05:30 Stool Vibrio (PCR) Not Detected (NotDetected) 12/07/24 05:30 Stl Vibrio cholerae PCR Not Detected (NotDetected) 12/07/24 05:30 Stl Norovirus GI/GII PCR Not Detected (NotDetected) 12/07/24 05:30 Random Vancomycin 17.6 mcg/ml (10-20) 12/11/24 04:27 SARS-CoV-2 (PCR) POSITIVE (Negative) A 12/07/24 03:55 Influenza Type A (PCR) Negative (Neg) 12/07/24 03:55 Influenza Type B (PCR) Negative (Neg) 12/07/24 03:55 RSV (RT-PCR) Negative (Neg) 12/07/24 03:55 Staphylococcus sp PCR DETECTED (NotDetected) A 12/07/24 03:50 Staph aureus (PCR) DETECTED (NotDetected) A 12/07/24 03:50 mecA/C & MREJ Resist Gene MRSA DETECTED (NotDetected) A* 12/07/24 03:50 Bld Cult ID Panel PCR See PCR Comment (NotDetected) 12/07/24 03:50 Impressions EXAM: XR chest 1V portable CLINICAL HISTORY: Sepsis TECHNIQUE: Radiograph of chest was acquired. COMPARISON: 06/25/2024 05:46:00 IMAGING CENTER MANAGER FINDINGS: Rotated radiograph. Pulmonary Parenchyma: Prominent bilateral windy with perihilar and basal accentuated broncho vascular markings. Right costophrenic angle appears clear. Left costophrenic angle and cardiac silhouette cannot be commented upon due to rotated radiograph. Heart and Mediastinum: No mediastinal widening or masses. No hilar or mediastinal lymphadenopathy. Bony Thorax: The bony thorax appears intact without fractures or deformities. Soft Tissues: Soft tissues overlying the chest wall are unremarkable. IMPRESSION: 1. Interval resolution of right costophrenic angle blunting. Rest of the findings consistent with previous radiograph. Electronically signed by Guille Stokes 12-07-2024 05:12 AM Dictated: 12/07/24 0414 Transcribed: Chest X-Ray 12/13/24 14:50 XR chest 1V portable CLINICAL HISTORY: PICC tip placement COMPARISON STUDY: 12/07/2024 FINDINGS: Right PICC line tip is at the cavoatrial junction. There is stable cardiomegaly with mild pulmonary vascular congestion. There is increased opacity in the lung bases with blunting of the costophrenic angles. No pneumothorax. IMPRESSION: 1. Well-positioned PICC line. 2. CHF with small bilateral pleural effusions and associated lung base consolidation, increased. ACT 112: Negative or not required by law. Electronically signed by: Real Thurman M.D. 12/13/2024 3:25 PM Pending Results Patient Have Any Pending Studies at Discharge: Yes Discharge Instructions Given to Patient (Per Discharging Provider) Weekly complete blood count and comprehensive metabolic panel while on IV vancomycin. Monitor sodium level closely. May need to adjust Lasix and potassium dose. Please monitor volume status closely, encouraged to hydrate with daily as patient will be on IV vancomycin and Lasix. Monitor renal function very closely. Please refer to accompanying hospital discharge summary for further details. Total Time Total Time Spent Total Time Spent (In Minutes): 60 minutes
[2024-12-14 12:26] LABS: Folate (Folic Acid),Ser orPlas > 22.30 ng/ml (>5.38)
[2024-12-14 12:27] LABS: Vitamin B12 1197 pg/ml (180-914)
[2024-12-15] MEDS ORDERED: VANCOMYCIN LEVEL ONE (07:30)
== END 2024-12-14 14:30 | DRG 871 ==
LOC: ED 03:28 → EDINP 06:16 → SUATTDRO 06:16 → 2S 20:49 → 3E 12-11 17:53

== ENCOUNTER 2025-01-18 12:42 | Inpatient (IN) ==
--- NOTE | 2025-01-18 13:37 | Emergency Department Note ---
Impression & Plan Complicated urinary tract infection, Transaminitis, Bradycardia ED Provider Note NAME: JEN GALLOWAY AGE: 85 SEX: F : 1940 ARRIVES VIA: Walk-In INFORMANT: Patient, family ED PROVIDER(S): Agusto Arteaga DO CHIEF COMPLAINT: abnormal UCx HPI: This is a 85-year-old female with the PMHx of HTN, AI/MR, pAfib, hypothyroidism, HFpEF, SIADH CKD and recurrent UTIs presenting to [facility] for further evaluation of Positive urine culture. Patient is accompanied by family who provide additional history. patient continues to have lower quadrant abdominal pain associate with urinary symptoms. Patient states she has numerous allergies to oral antibiotics. She also states that her UTIs are resistant to oral antibiotics. They deny fever or chills. No cough or congestion. Denies chest pain or palpitations. No shortness of breath. They deny nausea and vomiting. No urinary complaints. No recent changes in bowel movements. Patient denies recent changes in medications or OTC supplements. Patient offers no other complaints, today. ADDITIONAL HISTORY OBTAINED: Per HPI Chronic Medical/Social Conditions Affecting Care: Per HPI PAST MEDICAL HISTORY: See Below PAST SURGICAL HISTORY: See Below FAMILY HISTORY: See Below SOCIAL HISTORY: See Below HOME MEDICATIONS: See Below ALLERGIES: See Below VITALS: See Below PHYSICAL EXAMINATION: GENERAL: Sitting up in bed, alert, well appearing, well nourished, no distress, non-toxic EYE EXAM: normal conjunctiva. PERRL and EOM's grossly intact. OROPHARYNX: no exudate, no erythema, lips, buccal mucosa, and tongue normal and mucous membranes are moist NECK: supple, no nuchal rigidity, no adenopathy, non-tender LUNGS: Clear to auscultation. Normal chest wall mechanics HEART: no murmurs, regular rate, regular rhythm ABDOMEN: abdomen soft, minimal lower abdominal TTP, no masses, no rebound or guarding. BACK: Back is symmetrical on inspection and there is no deformity, no midline tenderness, no CVA tenderness. SKIN: no rashes and no bruising UPPER EXTREMITIES: upper extremities are grossly normal. LOWER EXTREMITIES: No pitting edema. NEURO EXAM: Normal sensorium, GCS 15, normal speech, no gross weakness of arms, no gross weakness of legs. MEDICAL DECISION MAKING: Differential diagnoses includes but not limited to complicated UTI, recurrent UTI, pyelonephritis, fracture, dislocation, musculoskeletal strain, cellulitis, electrolyte derangements, dehydration In summary, this is a 85 year old female who presented with + urine culture. Differential as above. Nursing notes and pertinent past medical records reviewed. Vital signs reviewed and the patient is bradycardic but otherwise afebrile and hemodynamically stable. History and presentation revealed positive urine culture of ongoing urinary symptoms. No signs of SIRS criteria. Patient does not need a sepsis alert. I reviewed primary care office visit note and lab work. This dates back to 01/11. Patient had a recent hospitalization related to a MRSA infection that was thought to be pneumonia. She also has frequent complicated UTIs. Has had worsening LFTs. Patient has Pseudomonas by culture. Patient does have a Fluoroquinolone allergy. Patient does have pansensitive Pseudomonas.The patient will require IV antibiotics. We will start the patient on IV cefepime. Physical examination revealed tenderness out of proportion to exam on the right shoulder and humerus. Could represent a musculoskeletal strain or partial tear of the biceps tendon. As a result of my initial evaluation, plan for labs and imaging of the right upper extremity with plain films. Diagnostics interpreted by me include EKG and cardiac monitoring as listed below: -Cardiac Monitoring: An order was placed for continuous cardiac monitoring. The monitor shows a rate of 50-70s with regular rhythm. -ECG: EKG independently interpreted by me reveals sinus bradycardia at a rate of [address] segment changes to suggest STEMI. Is a first- degree AV block present. Intervals are otherwise within normal limits. Patient completed laboratory studies and imaging. Results independently interpreted by me are mild anemia that stable as compared to prior. No leukocytosis or elevation in procalcitonin. Kidney function is stable. Does have a relatively recent transaminitis. The patient was managed with IV cefepime and plan to admit for IV antibiotics for Pseudomonas UTI. Ultimately, the decision was made to admit the patient for complicated UTI. I discussed the case with the hospitalist service via telephone/TigerText and they are agreeable to admit the patient to their services. Based on the above, including the patient's age, coexisting illnesses, labs, imaging, and exam findings the decision to treat as an inpatient. I discussed the patient with the hospitalist team who recommended admission to their services. They received the medications, treatments, interventions indicated above and their condition remained stable. I discussed my findings with the patient and their family and they understand and agree with the treatment plan. All patient / family questions were answered to their satisfaction. Consults/Care Managements Discussions: Per MDM ER treatment provided: See above Procedures:none Critical Care: None The chart was completed utilizing [employer]birds Speech voice recognition software. Grammatical errors, random word insertions, pronoun errors, and incomplete sentences are an occasional consequence of this system due to software limitations, ambient noise, and hardware issues. Any formal questions or concerns about the content, text, or information contained within the body of this dictation should be directly addressed to the physician for clarification. Past Med/Surg History Problem List (Updated 01/23/25 @ 15:32 by Agusto Arteaga DO) Bradycardia (Acute) Transaminitis (Acute) Complicated urinary tract infection (Acute) (HFpEF) heart failure with preserved ejection fraction History of SIADH Chronic hyponatremia Recurrent urinary tract infection Transaminitis Hydronephrosis, right HSV (herpes simplex virus) infection Bacteremia due to methicillin resistant Staphylococcus aureus Hyponatremia Diarrhea (Acute) Weakness (Acute) COVID-19 (Acute) Complicated urinary tract infection (Acute) Sepsis (Acute) Chronic kidney disease, stage 3a Aortic insufficiency Mitral regurgitation Bilateral pleural effusion (Acute) Paroxysmal atrial fibrillation Anemia (Acute) Hypothyroidism (HFpEF) heart failure with preserved ejection fraction On amiodarone therapy Hypertension Medical History Acute UTI Complicated UTI (urinary tract infection) tx for UTI (finished abx 07/24/24) Acute UTI Renal colic Hydronephrosis Right ureteral stone High serum calcium 01/2024 Kidney stone Leukocytosis Failure of outpatient treatment Generalized weakness Macular degeneration Cat scratch 02/17/2024 Stage 3b chronic kidney disease (CKD) Pulmonary hypertension RSVP 40-50mmHg per 04/2024 ECHO Heart valve disease 04/2024 ECHO: mild-mod AR, mod MR, mild TR CHIQUITA (generalized anxiety disorder) PVD (peripheral vascular disease) Hyperlipidemia SIADH (syndrome of inappropriate ADH production) usually takes salt tab; has been off since 06/27/24 [facility] admission History of recent hospitalization [facility] 06/25-06/27/24: dx: acute UTI, R ureteric stone (stent placement 06/25/24) acute on chronic CHF, acute hypoxemic resp failure Urinary tract infection Infection of wound hematoma H/O- 2016 HTN (hypertension) On amiodarone therapy Hypothyroidism History of anemia no current issues Hx of pleural effusion (2021) seen most recently on abd/pelvis CT 06/25/24 Chronic kidney disease, stage 3a IIIa/IIIb per chart review Macular degeneration Kidney stones Hx of congestive heart failure Paroxysmal atrial fibrillation controlled w/ amiodarone - follows w/ Dr Canela Hx of recurrent urinary tract infection completed abx 07/24/24 Pulmonary edema seen most recently abd/pelvis CT 06/25/24 Elevated brain natriuretic peptide (BNP) level hx of Shortness of breath mild, w/ exertion Chronic heart failure with preserved ejection fraction 05/02/24 ECHO: Grade II DD c/w marked CHF; EF 55-60% Atypical chest pain hx - denies current issues GERD (gastroesophageal reflux disease) Pneumonia hx- no issues since ~2021 per pt Diverticulitis h/o > 2019 Surgical History History of cystoscopy cysto, R ureteral stent 06/25/24: MAC without issue Hx of tubal ligation History of umbilical hernia repair incarcerated - unknown age Hx of hernia repair right inguinal 2013 Hx of cholecystectomy Hx of hysterectomy Family History Mother Stroke Social History Smoking Status: Never smoker Second Hand Exposure: No; Do You Dip or Chew Tobacco: No; Hx Alcohol Use: No Hx Substance Use: No Preferred Language: Irish Communication Ability: Effective Wind Commissioning Technician Required: No Beliefs That Will Affect Care: None marital status: Current Living Situation: Alone Current Living Situation Comment: Has an aide who comes over current occupational status: retired How many Children do You have: 3 Other Information That Helps Us Care for You: No Feels Safe at Home: Yes Safety Concerns: Feels Safe At This Time Assistive Devices: Lift Chair and Walker Allergies Allergies Allergy/AdvReac Type Severity Reaction Status Date / Time Quinolones Allergy Intermediate HIVES Verified 01/18/25 14:53 dabigatran etexilate Allergy Unknown ON Verified 01/18/25 14:53 [facility] metronidazole AdvReac Intermediate GI SYMPTOMS Verified 01/18/25 14:53 sulfamethoxazole AdvReac Intermediate Diarrhea Verified 01/18/25 14:53 trimethoprim AdvReac Intermediate Diarrhea Verified 01/18/25 14:53 Home Meds Home Medications Medication Instructions Recorded Confirmed vit C 250 mg-vit E 90 mg-zinc 40 2 tab PO DAILY 12/07/24 01/18/25 mg-copper 1 [id number]-[id number] capsule (PreserVision AREDS-2) albuterol sulfate 90 mcg/actuation 2 puff inhalation Q4H PRN Wheezing 01/18/25 01/18/25 aerosol inhaler amiodarone 200 mg tablet 200 mg PO QDD 01/18/25 01/18/25 amlodipine 5 mg tablet 5 mg PO DAILY 01/18/25 01/18/25 ascorbic acid (vitamin C) 500 mg 500 mg PO DAILY 01/18/25 01/18/25 tablet (Vitamin C) calcium polycarbophil 625 mg 625 mg PO DAILY 01/18/25 01/18/25 tablet (FiberCon) diclofenac sodium 1 % topical gel 2 g topical QID PRN JOINT PAIN 01/18/25 01/18/25 furosemide 40 mg tablet 40 mg PO BID 01/18/25 01/18/25 levothyroxine 75 mcg tablet 75 mcg PO DAILYBB 01/18/25 01/18/25 peg 400-propylene glycol 0.4 %-0.3 1 drp OPB QID 01/18/25 01/18/25 % eye drops (Systane Ultra) potassium chloride 20 mEq 20 meq PO BID 01/18/25 01/18/25 tablet,extended release Previous Rx's Medication Instructions Recorded L.acidop,casei,lactis,rham-B.lact,nicole 2 cap PO DAILY #60 caps 12/14/24 625 mg (10 billion cell) capsule (Advanced Probiotic) aspirin 325 mg tablet 325 mg PO DAILY 30 days #30 tabs 12/14/24 buspirone 5 mg tablet 5 mg PO BID PRN Anxiety #14 tabs 12/14/24 calcium 600 mg (as 1 tab PO DAILY 3 days #3 tabs 12/14/24 carbonate)-vitamin D3 10 mcg (400 unit) tablet (Calcium 600 + D(3)) cyanocobalamin (vitamin B-12) 1,000 mcg PO Q OTHER DAY #30 tabs 12/14/24 1,000 mcg tablet magnesium oxide 400 mg PO DAILY #30 tabs 12/14/24 methenamine hippurate 1 gram tablet 1 g PO BID 30 days #60 tabs 12/14/24 metoprolol succinate 50 mg 50 mg PO BID 30 days #60 tabs 12/14/24 tablet,extended release 24 hr multivitamin with minerals 1 tab PO DAILY #30 tabs 12/14/24 Results & Data (ED) Vital Signs Vital Signs - 24 hr 01/18/25 12:45 01/18/25 13:40 Temperature 36.9 C Temperature Source Temporal Artery Scan Pulse Rate 59 L 70 Respiratory Rate 18 Respiratory Effort / Characteristics Non-Labored Spontaneous Respiratory Depth Normal Respiratory Pattern Regular Blood Pressure 133/62 Blood Pressure Mean 85 Pulse Oximetry 98 Oxygen Delivery Method Room Air Sepsis Recent Fever Within 48 Hours No Sepsis New/Unexplained Change in Mental Status N/A Sepsis Action Taken by Nursing No Action Required Laboratory Data 01/23/25 06:15 01/23/25 06:15 Lab Results 01/18/25 Range/Units 13:40 WBC 9.87 (4.8-10.8) K/ul RBC 3.48 L (4.20-5.40) M/uL Hgb 11.5 L (12.0-16.0) g/dl Hct 35.4 L (37.0-47.0) % MCV 101.7 H (80.0-100.0) fL MCH 33.0 (25.0-34.0) pg MCHC 32.5 (32.0-36.0) g/dL RDW Std Deviation 59.0 H (36.4-46.3) fL RDW Coeff of Ursula 15.9 H (11.5-14.5) % Plt Count 285 (130-400) K/uL MPV 10.2 (9.4-12.4) fL Immature Gran % (Auto) 0.5 % Neut % (Auto) 66.1 % Lymph % (Auto) 18.9 % Burnett % (Auto) 12.9 % Eos % (Auto) 0.8 % Baso % (Auto) 0.8 % Neut # (Auto) 6.52 H (1.40-6.50) K/uL Lymph # (Auto) 1.87 (1.20-3.40) K/uL Burnett # (Auto) 1.27 H (0.11-0.59) K/uL Eos # (Auto) 0.08 (0.00-0.50) K/uL Baso # (Auto) 0.08 (0.00-0.20) K/uL Immature Gran # (Auto) 0.05 (0.01-0.20) K/uL Sodium 133 L (136-145) mmol/L Potassium 4.3 (3.5-5.1) mmol/L Chloride 97 L (98-107) mmol/L Carbon Dioxide 28 (21-32) mmol/L Anion Gap 8 (3-11) BUN 17 (6-23) mg/dl Creatinine 1.09 (0.6-1.2) mg/dl Est Cr Clr Drug Dosing Not Reportable eGFR 49.17 BUN/Creatinine Ratio 15.6 (10-20) Glucose 101 H (70-99(Fasting)) mg/dl Calcium 9.9 (8.6-10.3) mg/dl Total Bilirubin 1.2 H (0.2-1.0) mg/dl Direct Bilirubin 0.2 (0-0.2) mg/dl AST 288 H (13-39) U/L ALT 395 H (7-52) U/L Alkaline Phosphatase 192 H (34-104) U/L Total Protein 7.9 (6.0-8.3) gm/dl Albumin 4.1 (3.4-5.0) gm/dl Lipase 46 (11-82) U/L Procalcitonin 0.12 (0-0.5) ng/ml Hep Bs Antigen Negative (Negative) Hepatitis C Antibody Negative (Negative) Administered Medications Amiodarone HCl (Amiodarone 200 Mg Tab) 200 mg PO QDD LINETTE Stop: 02/17/25 16:29 Last Admin: 01/22/25 17:10 Dose: 200 mg Documented By: Admin: 01/21/25 16:28 Dose: 200 mg Documented By: Admin: 01/20/25 16:45 Dose: 200 mg Documented By: Admin: 01/19/25 17:15 Dose: 200 mg Documented By: Admin: 01/18/25 19:21 Dose: 200 mg Documented By: osiel Amlodipine Besylate (Amlodipine Besylate 5 Mg Tab) 5 mg PO DAILY LINETTE Stop: 02/18/25 08:59 Last Admin: 01/23/25 08:21 Dose: 5 mg Documented By: Admin: 01/22/25 08:02 Dose: 5 mg Documented By: Admin: 01/21/25 08:22 Dose: 5 mg Documented By: Admin: 01/20/25 08:10 Dose: 5 mg Documented By: Admin: 01/19/25 08:04 Dose: 5 mg Documented By: MYLENE Artificial Tears (Artificial Tears) 1 drops OP QID LINETTE Stop: 02/17/25 20:59 Last Admin: 01/23/25 14:01 Dose: Not Given Documented By: Admin: 01/23/25 08:19 Dose: 1 drops Documented By: Admin: 01/22/25 21:30 Dose: 1 drops Documented By: Admin: 01/22/25 17:04 Dose: 1 drops Documented By: Admin: 01/22/25 12:02 Dose: Not Given Documented By: Admin: 01/22/25 08:02 Dose: 1 drops Documented By: Admin: 01/21/25 21:33 Dose: 1 drops Documented By: Admin: 01/21/25 16:28 Dose: 1 drops Documented By: Admin: 01/21/25 11:48 Dose: 1 drops Documented By: Admin: 01/21/25 08:23 Dose: 1 drops Documented By: Admin: 01/20/25 21:15 Dose: 1 drops Documented By: Admin: 01/20/25 16:45 Dose: 1 drops Documented By: Admin: 01/20/25 12:37 Dose: 1 drops Documented By: Admin: 01/20/25 10:04 Dose: Not Given Documented By: Admin: 01/19/25 19:57 Dose: 1 drops Documented By: Admin: 01/19/25 17:16 Dose: 1 drops Documented By: Admin: 01/19/25 13:07 Dose: 1 drops Documented By: Admin: 01/19/25 08:05 Dose: 1 drops Documented By: Admin: 01/18/25 21:19 Dose: 1 drops Documented By: osiel Aspirin (Aspirin 325 Mg Ectab) 325 mg PO DAILY LINETTE Stop: 02/18/25 08:59 Last Admin: 01/23/25 08:20 Dose: 325 mg Documented By: Admin: 01/22/25 08:03 Dose: 325 mg Documented By: Admin: 01/21/25 08:22 Dose: 325 mg Documented By: Admin: 01/20/25 08:10 Dose: 325 mg Documented By: Admin: 01/19/25 08:04 Dose: 325 mg Documented By: MYLENE Buspirone HCl (Buspirone 5 Mg Tab) 5 mg PO BID PRN PRN Reason: Anxiety Stop: 02/17/25 16:23 Last Admin: 01/23/25 08:20 Dose: 5 mg Documented By: Admin: 01/22/25 08:01 Dose: 5 mg Documented By: JOLYNN Calcium Polycarbophil (Calcium Polycarbophil 625mg Tab) 625 mg PO DAILY LINETTE Stop: 02/18/25 08:59 Last Admin: 01/23/25 08:22 Dose: Not Given Documented By: Admin: 01/22/25 08:04 Dose: 625 mg Documented By: Admin: 01/21/25 08:22 Dose: 625 mg Documented By: Admin: 01/20/25 08:10 Dose: 625 mg Documented By: Admin: 01/19/25 08:04 Dose: 625 mg Documented By: MYLENE Calcium/Vitamin D (Calcium 600mg + Vit D 400 Iu Tab) 1 tab PO DAILY LINETTE Stop: 02/18/25 08:59 Last Admin: 01/23/25 08:20 Dose: 1 tab Documented By: Admin: 01/22/25 08:02 Dose: 1 tab Documented By: Admin: 01/21/25 08:23 Dose: Not Given Documented By: Admin: 01/20/25 08:10 Dose: 1 tab Documented By: Admin: 01/19/25 08:04 Dose: 1 tab Documented By: MYLENE Cyanocobalamin (Cyanocobalamin (B-12) 500 Mcg Tablet) 1,000 mcg PO Q2D LINETTE Stop: 02/18/25 08:59 Last Admin: 01/23/25 08:22 Dose: Not Given Documented By: Admin: 01/21/25 08:22 Dose: 1,000 mcg Documented By: Admin: 01/19/25 08:04 Dose: 1,000 mcg Documented By: MYLENE Furosemide (Furosemide 40 Mg Tab) 40 mg PO BID17 LINETTE Stop: 02/17/25 18:29 Last Admin: 01/23/25 08:20 Dose: 40 mg Documented By: Admin: 01/22/25 17:10 Dose: 40 mg Documented By: Admin: 01/22/25 08:02 Dose: 40 mg Documented By: Admin: 01/21/25 16:28 Dose: 40 mg Documented By: Admin: 01/21/25 08:22 Dose: 40 mg Documented By: Admin: 01/20/25 16:45 Dose: 40 mg Documented By: Admin: 01/20/25 08:10 Dose: 40 mg Documented By: Admin: 01/19/25 17:15 Dose: 40 mg Documented By: Admin: 01/19/25 08:04 Dose: 40 mg Documented By: Admin: 01/18/25 19:20 Dose: 40 mg Documented By: [email or web address] Piperacillin Sod/Tazobactam Sod (Zosyn) 4.5 gm in 100 mls @ 25 mls/hr IV Q8H [facility]; Protocol Stop: 01/29/25 19:59 Last Admin: 01/23/25 11:11 Dose: 25 mls/hr Documented By: Infusion: 01/23/25 08:48 Dose: Infused Documented By: Admin: 01/23/25 03:39 Dose: 25 mls/hr Documented By: Infusion: 01/23/25 01:14 Dose: Infused Documented By: Admin: 01/22/25 21:14 Dose: 25 mls/hr Documented By: Admin: 01/22/25 11:49 Dose: Not Given Documented By: Infusion: 01/22/25 08:11 Dose: Infused Documented By: Admin: 01/22/25 03:50 Dose: 25 mls/hr Documented By: Infusion: 01/22/25 00:15 Dose: Infused Documented By: Admin: 01/21/25 20:15 Dose: 25 mls/hr Documented By: Infusion: 01/21/25 15:46 Dose: Infused Documented By: Admin: 01/21/25 11:45 Dose: 25 mls/hr Documented By: Infusion: 01/21/25 08:13 Dose: Infused Documented By: Admin: 01/21/25 04:06 Dose: 25 mls/hr Documented By: Infusion: 01/21/25 01:23 Dose: Infused Documented By: Admin: 01/20/25 21:20 Dose: 25 mls/hr Documented By: Infusion: 01/20/25 13:13 Dose: Infused Documented By: Admin: 01/20/25 12:37 Dose: 25 mls/hr Documented By: Infusion: 01/20/25 09:30 Dose: Infused Documented By: Admin: 01/20/25 05:05 Dose: 25 mls/hr Documented By: Infusion: 01/20/25 00:07 Dose: Infused Documented By: Admin: 01/19/25 19:56 Dose: 25 mls/hr Documented By: NEGRO Lactobacillus Acidophilus (Advanced Probiotic 625 Mg Capsule) 1,250 mg PO DAILY LINETTE Stop: 02/18/25 08:59 Last Admin: 01/23/25 08:21 Dose: Not Given Documented By: Admin: 01/22/25 08:02 Dose: 1,250 mg Documented By: Admin: 01/21/25 08:22 Dose: 1,250 mg Documented By: Admin: 01/20/25 08:09 Dose: 1,250 mg Documented By: Admin: 01/19/25 08:03 Dose: 1,250 mg Documented By: MYLENE Levothyroxine Sodium (Levothyroxine Sodium 75 Mcg Tablet) 75 mcg PO DAILYBB LINETTE Stop: 02/18/25 06:29 Last Admin: 01/23/25 06:19 Dose: 75 mcg Documented By: Admin: 01/22/25 05:44 Dose: 75 mcg Documented By: Admin: 01/21/25 06:07 Dose: 75 mcg Documented By: Admin: 01/20/25 05:05 Dose: 75 mcg Documented By: Admin: 01/19/25 05:46 Dose: 75 mcg Documented By: osiel Magnesium Oxide (Magnesium Oxide 400 Mg Tab) 400 mg PO DAILY LINETTE Stop: 02/18/25 08:59 Last Admin: 01/23/25 08:21 Dose: Not Given Documented By: Admin: 01/22/25 08:02 Dose: 400 mg Documented By: Admin: 01/21/25 08:22 Dose: 400 mg Documented By: Admin: 01/20/25 08:09 Dose: 400 mg Documented By: Admin: 01/19/25 08:04 Dose: 400 mg Documented By: MYLENE Metoprolol Succinate (Metoprolol Succ 50mg Ext Rel Tab) 50 mg PO BID LINETTE Stop: 02/17/25 20:59 Last Admin: 01/23/25 08:21 Dose: Not Given Documented By: Admin: 01/22/25 21:14 Dose: 50 mg Documented By: Admin: 01/22/25 08:02 Dose: 50 mg Documented By: Admin: 01/21/25 21:38 Dose: 50 mg Documented By: Admin: 01/21/25 08:22 Dose: 50 mg Documented By: Admin: 01/20/25 21:15 Dose: Not Given Documented By: Admin: 01/20/25 08:09 Dose: 50 mg Documented By: Admin: 01/19/25 20:03 Dose: Not Given Documented By: Admin: 01/19/25 08:04 Dose: 50 mg Documented By: Admin: 01/18/25 21:20 Dose: Not Given Documented By: osiel Multivitamins/Minerals (Cerovite Adv Formula Tab) 1 tab PO DAILY LINETTE Stop: 02/18/25 08:59 Last Admin: 01/23/25 08:21 Dose: 1 tab Documented By: Admin: 01/22/25 08:02 Dose: 1 tab Documented By: Admin: 01/21/25 08:22 Dose: 1 tab Documented By: Admin: 01/20/25 08:09 Dose: 1 tab Documented By: Admin: 01/19/25 08:03 Dose: 1 tab Documented By: MYLENE Potassium Chloride (Potassium Chloride Crtab 20 Meq Tabcr) 20 meq PO BID LINETTE Stop: 02/17/25 20:59 Last Admin: 01/23/25 08:23 Dose: 20 meq Documented By: Admin: 01/22/25 21:13 Dose: 20 meq Documented By: Admin: 01/22/25 08:00 Dose: 20 meq Documented By: Admin: 01/21/25 21:37 Dose: 20 meq Documented By: Admin: 01/21/25 08:22 Dose: 20 meq Documented By: RRShawn Admin: 01/20/25 21:14 Dose: 20 meq Documented By: Admin: 01/20/25 08:08 Dose: 20 meq Documented By: RRShawn Admin: 01/19/25 19:57 Dose: 20 meq Documented By: Admin: 01/19/25 08:04 Dose: 20 meq Documented By: Admin: 01/18/25 21:20 Dose: 20 meq Documented By: osiel Tramadol HCl (Tramadol Hcl 50 Mg Tablet) 25 mg PO TID PRN PRN Reason: Pain Stop: 02/18/25 20:14 Last Admin: 01/22/25 21:13 Dose: 25 mg Documented By: Admin: 01/22/25 13:34 Dose: 25 mg Documented By: Admin: 01/19/25 21:44 Dose: 25 mg Documented By: NEGRO Discontinued Medications Heparin Sodium (Porcine) (Heparin Sod 5,000 Unit/0.5 Ml Vial) 5,000 units SQ Q12 LINETTE Stop: 02/17/25 20:59 Last Admin: 01/22/25 21:21 Dose: Not Given Documented By: Admin: 01/22/25 07:59 Dose: 5,000 units Documented By: Admin: 01/21/25 21:37 Dose: 5,000 units Documented By: Admin: 01/21/25 08:23 Dose: 5,000 units Documented By: Admin: 01/20/25 21:21 Dose: Not Given Documented By: Admin: 01/20/25 08:10 Dose: 5,000 units Documented By: Admin: 01/19/25 19:57 Dose: 5,000 units Documented By: Admin: 01/19/25 08:04 Dose: 5,000 units Documented By: Admin: 01/18/25 21:19 Dose: 5,000 units Documented By: osiel Parenteral Electrolytes (Plasma-Lyte A Ph 7.4) 1,000 mls @ 999 mls/hr IV .Q1H1M ONE Stop: 01/18/25 14:11 Last Infusion: 01/18/25 15:16 Dose: Infused Documented By: Admin: 01/18/25 13:50 Dose: 999 mls/hr Documented By: ASHLEE Cefepime HCl (Maxipime 2000mg) 2,000 mg in 20 mls @ 5 mls/min IV NOW STA; Protocol Stop: 01/18/25 13:20 Last Admin: 01/18/25 13:50 Dose: 5 mls/min Documented By: ASHLEE Cefepime HCl (Maxipime 2000mg) 1,000 mg in 10 mls @ 5 mls/min IV Q12H [facility]; Protocol Stop: 01/24/25 01:59 Last Admin: 01/19/25 13:10 Dose: 5 mls/min Documented By: Admin: 01/19/25 01:27 Dose: 5 mls/min Documented By: osiel Piperacillin Sod/Tazobactam Sod (Zosyn) 4.5 gm in 100 mls @ 200 mls/hr IV NOW STA; Protocol Stop: 01/19/25 15:03 Last Infusion: 01/19/25 16:10 Dose: Infused Documented By: Admin: 01/19/25 15:37 Dose: 200 mls/hr Documented By: MYLENE Sodium Chloride (Nss) 500 mls @ 80 mls/hr IV .Q6H15M ONE Stop: 01/20/25 14:47 Last Infusion: 01/20/25 15:43 Dose: Infused Documented By: Admin: 01/20/25 10:03 Dose: 80 mls/hr Documented By: MYLENE Ioversol (Optiray 320 100ml) 94 ml IV ONCE ONE Stop: 01/20/25 10:23 Last Admin: 01/20/25 10:23 Dose: 94 ml Documented By: CHRISTIANO Discharge Plan Visit Data Chief Complaint: Urinary Symptoms Stated Complaint: REF BY DOC, UTI SYMPTOMS ED Provider: Agusto Arteaga Discharge Problem: Complicated urinary tract infection, Transaminitis, Bradycardia Patient Disposition: Admitted As Inpatient Condition: Fair Discharge Instructions Interventions: ED Discharge Assessment Last Done: 01/18/25 17:48
[2025-01-18] MEDS: CEFEPIME 2000MG 2,000 MG/20 ML SYR IV STA (13:50)
[2025-01-18] MEDS: PLASMA-LYTE A 1,000 ML IV ONE (13:50)
[2025-01-18 13:53] LABS: Hematocrit (blood only) 35.4 % (37.0-47.0); Hemoglobin 11.5 g/dl (12.0-16.0); Immature Granulocytes # (auto) 0.05 K/uL (0.01-0.20); Immature Granulocytes % (auto) 0.5 %; Mean Corpuscular Hemoglobin 33.0 pg (25.0-34.0); Mean Corpuscular Volume 101.7 fL (80.0-100.0); Platelet Count 285 K/uL (130-400); RDW Standard Deviation 59.0 fL (36.4-46.3); Red Blood Count 3.48 M/uL (4.20-5.40); White Blood Count 9.87 K/ul (4.8-10.8)
[2025-01-18 14:17] LABS: Alanine Aminotransferase 395 U/L (7-52); Alkaline Phosphatase 192 U/L (34-104); Anion Gap 8 (3-11); Bilirubin,Total 1.2 mg/dl (0.2-1.0); Blood Urea Nitrogen 17 mg/dl (6-23); Calcium 9.9 mg/dl (8.6-10.3); Carbon Dioxide 28 mmol/L (21-32); Chloride 97 mmol/L (98-107); Glucose 101 mg/dl (70-99(Fasting)); Lipase 46 U/L (11-82); Potassium 4.3 mmol/L (3.5-5.1); Sodium 133 mmol/L (136-145); Total Protein 7.9 gm/dl (6.0-8.3)
--- NOTE | 2025-01-18 14:46 | XRay Report ---
XR humerus RT 2V, XR shoulder RT min 2V routine CLINICAL HISTORY: pain COMPARISON: 03/02/2019 FINDINGS: There are mild degenerative changes at the right shoulder and right elbow. No fracture or dislocation seen at the right shoulder or right humerus. No osseous lesion seen. IMPRESSION: No fracture seen. ACT 112: Negative or not required by law. Electronically signed by: Real Thurman M.D. 01/18/2025 2:44 PM
--- NOTE | 2025-01-18 14:55 | History & Physical Report ---
Date of Service January 18, 2025 Assessment & Plan (1) Recurrent urinary tract infection: Plan: Pt is an 85-year-old female with past medical history significant for SIADH, hypothyroidism, HLD, HTN, PVD, chronic HFpEF, PAF not on anticoagulation 2/2 history of falls and prior GI bleeding, LBBB/IVCD, prolonged QTc, valvular heart disease including aortic and mitral valve insufficiencies, venous insufficiency, GERD, CKD stage IIIb [baseline Cr 1.1-1.3], history of symptomatic anemia, history of aspiration pneumonitis, CHIQUITA, history of recurrent UTIs and other problems as outlined in her chart who presented to the ED via referral from her PCP for IV ABX therapy for a recurrent UTI. Confinement under our service last month for MRSA bacteremia of unclear source. Completed 4-week course of IV vancomycin as recommended by ID. Pt seen by PCP last week on 01/11/25 for her hospital DC f/u appt. C/o lower abdominal discomfort at this visit which is a common sx she experiences with UTIs. Urine culture completed which grew pansensitive Pseudomonas aeruginosa. PCP recommended po cipro. Pt elected to forego trial of cipro due to documented h/o fluoroquinolone rx - however it is unclear what pt's rx was and if it was specifically to cipro. Pt's caregiver suspects she had GI upset with fluoroquinolones previously however pt cannot remember. OP urine culture, 01/11/25: pansensitive Pseudomonas aeruginosa * Susceptible to cefepime, ceftazidime, ciprofloxacin, meropenem, Zosyn and tobramycin per culture report S/p dose of IV cefepime in ED --> will continue for now Hold Urex while on above ABX (2) Transaminitis: Plan: OP LFTs on 01/11/25: alk phos 226, AST 435, ALT 728, T. bili 1.1 Repeat LFTs on admission: alk phos 192, AST 288, ALT 395, T. bili 1.2 Mention of cirrhosis on prior imaging studies but no obvious cause (does have severe and is on amiodarone) Pt previously refused EUS with bx and portal pressure measures per prior OP [facility] visit OP [facility] recommended that the pt undergo MRCP for further eval --> pt refusing this today Abnormal LFTs were also thought to be 2/2 recent IV vancomycin use for MRSA bacteremia (dx last confinement as per above) Pt denies any Tylenol use Will check acute hepatitis panel and follow LFT trend in AM (3) Paroxysmal atrial fibrillation: Plan: Not on anticoagulation 2/2 h/o falls and prior GI bleeding Continue amiodarone, ASA and BB (4) Hypertension: Plan: Continue amlodipine with holding parameters (5) CHIQUITA (generalized anxiety disorder): Plan: Continue PRN BuSpar (6) Chronic hyponatremia: (7) History of SIADH: Plan: Na overall stable at time of admission Continue to monitor (8) (HFpEF) heart failure with preserved ejection fraction: Plan: Appears euvolemic on exam Continue Lasix and monitor daily wts/I&Os (9) Hypothyroidism: Plan: Continue levothyroxine (10) Stage 3b chronic kidney disease (CKD): Plan: Cr stable on admission Baseline Cr 1.1-1.3, continue to monitor and avoid nephrotoxic agents as able Other medical problems: Pt c/o R shoulder pain to ED provider --> XR R shoulder/humerus grossly unremarkable, pt reports this has resolved at time of my eval DVT Prophylaxis: SQ heparin Disposition: Admit to med/surg Patient seen in collaboration with Dr. Moses. Please see addendum. I spent a total of 52 minutes coordinating, documenting, and providing care for this patient excluding time spent in the performance of separately billed services or time spent by another provider/QHP. This included personally reviewing all current laboratories and imaging studies, medical reconciliation, outpatient chart review and discussion with specialists. This chart was completed in part utilizing Speech Voice Recognition Software. Grammatical errors, random word insertions, pronoun errors, and incomplete sentences are an occasional consequence of this system due to software limitations, ambient noise, and hardware issues. Any formal questions or concern s about the content, text, or information contained within the body of this dictation should be directly addressed to the provider for clarification. History of Present Illness Chief Complaint: Referred by PCP: IV ABX for recurrent UTI Primary Care Provider: Kodi Lizarraga MD Patient is an 85-year-old female with past medical history significant for SIADH, hypothyroidism, HLD, HTN, PVD, chronic HFpEF, PAF not on anticoagulation 2/2 history of falls and prior GI bleeding, LBBB/IVCD, prolonged QTc, valvular heart disease including aortic and mitral valve insufficiencies, venous insufficiency, GERD, CKD stage IIIb [baseline Cr 1.1-1.3], history of symptomatic anemia, history of aspiration pneumonitis, CHIQUITA, history of recurrent UTIs and other problems as outlined in her chart who presented to the ED via referral from her PCP for IV ABX therapy for a recurrent UTI. Confinement under our service last month for MRSA bacteremia of unclear source. Completed 4-week course of IV vancomycin as recommended by ID. Recently returned home on 01/08/25 after being at [facility] following her last admission. Has a caregiver, Rachel, who is with her at bedside in the ED. Patient seen by PCP last week on 01/11/25 for her hospital DC follow-up appointment. Mentioned at that time she was experiencing some lower abdominal discomfort, which is a common symptom she experiences with UTIs. Urine culture was sent off which ended up growing pansensitive Pseudomonas aeruginosa. PCP recommended po ciprofloxacin, which showed sensitivity, however patient previously reported a prior reaction to fluoroquinolones including GI upset and hives. Patient unable to confirm this at bedside in the ED. And per discussion with the patient's caregiver, it is unclear if the patient has ever tried ciprofloxacin previously. Patient elected to forego trial of ciprofloxacin as recommended by her PCP, therefore she was sent in for IV ABX given her culture only showed additional sensitivity to cefepime, ceftazidime, meropenem, Zosyn and tobramycin. Patient with no major complaints at the time of my evaluation, states her lower abdominal discomfort has improved. No reported fevers, chills or myalgias. Denies any dysuria, increased urinary frequency or hematuria. No recent Cramer catheter placement [employer] or on admission. Appetite stable, denies any N/V. Allergies Allergy/AdvReac Type Severity Reaction Status Date / Time Quinolones Allergy Intermediate HIVES Verified 01/18/25 14:53 dabigatran etexilate Allergy Unknown ON Verified 01/18/25 14:53 HiWiFi MED LIST metronidazole AdvReac Intermediate GI SYMPTOMS Verified 01/18/25 14:53 sulfamethoxazole AdvReac Intermediate Diarrhea Verified 01/18/25 14:53 trimethoprim AdvReac Intermediate Diarrhea Verified 01/18/25 14:53 Home Medications Medication Instructions Recorded Confirmed Type vit C 250 mg-vit E 90 mg-zinc 40 2 tab PO DAILY 12/07/24 01/18/25 History mg-copper 1 lu-ybvfyd-aesywe capsule (PreserVision AREDS-2) L.acidop,casei,lactis,rham-B.lact,nicole 2 cap PO DAILY #60 caps 12/14/24 01/18/25 Rx 625 mg (10 billion cell) capsule (Advanced Probiotic) aspirin 325 mg tablet 325 mg PO DAILY 30 days #30 tabs 12/14/24 01/18/25 Rx buspirone 5 mg tablet 5 mg PO BID PRN Anxiety #14 tabs 12/14/24 01/18/25 Rx calcium 600 mg (as 1 tab PO DAILY 3 days #3 tabs 12/14/24 01/18/25 Rx carbonate)-vitamin D3 10 mcg (400 unit) tablet (Calcium 600 + D(3)) cyanocobalamin (vitamin B-12) 1,000 mcg PO Q OTHER DAY #30 tabs 12/14/24 01/18/25 Rx 1,000 mcg tablet magnesium oxide 400 mg PO DAILY #30 tabs 12/14/24 01/18/25 Rx methenamine hippurate 1 gram tablet 1 g PO BID 30 days #60 tabs 12/14/24 Rx metoprolol succinate 50 mg 50 mg PO BID 30 days #60 tabs 12/14/24 01/18/25 Rx tablet,extended release 24 hr multivitamin with minerals 1 tab PO DAILY #30 tabs 12/14/24 01/18/25 Rx albuterol sulfate 90 mcg/actuation 2 puff inhalation Q4H PRN Wheezing 01/18/25 01/18/25 History aerosol inhaler amiodarone 200 mg tablet 200 mg PO QDD 01/18/25 01/18/25 History amlodipine 5 mg tablet 5 mg PO DAILY 01/18/25 01/18/25 History ascorbic acid (vitamin C) 500 mg 500 mg PO DAILY 01/18/25 01/18/25 History tablet (Vitamin C) calcium polycarbophil 625 mg 625 mg PO DAILY 01/18/25 01/18/25 History tablet (FiberCon) diclofenac sodium 1 % topical gel 2 g topical QID PRN JOINT PAIN 01/18/25 01/18/25 History furosemide 40 mg tablet 40 mg PO BID 01/18/25 01/18/25 History levothyroxine 75 mcg tablet 75 mcg PO DAILYBB 01/18/25 01/18/25 History peg 400-propylene glycol 0.4 %-0.3 1 drp OPB QID 01/18/25 01/18/25 History % eye drops (Systane Ultra) potassium chloride 20 mEq 20 meq PO BID 01/18/25 01/18/25 History tablet,extended release Past Med/Surg History Problem List (Updated 01/18/25 @ 16:27 by Venessa Phillips PA-C) (HFpEF) heart failure with preserved ejection fraction History of SIADH Chronic hyponatremia Recurrent urinary tract infection Transaminitis Hydronephrosis, right HSV (herpes simplex virus) infection Bacteremia due to methicillin resistant Staphylococcus aureus Hyponatremia Diarrhea (Acute) Weakness (Acute) COVID-19 (Acute) Complicated urinary tract infection (Acute) Sepsis (Acute) Chronic kidney disease, stage 3a Aortic insufficiency Mitral regurgitation Bilateral pleural effusion (Acute) Paroxysmal atrial fibrillation Anemia (Acute) Hypothyroidism (HFpEF) heart failure with preserved ejection fraction On amiodarone therapy Hypertension Medical History Acute UTI Complicated UTI (urinary tract infection) tx for UTI (finished abx 07/24/24) Acute UTI Renal colic Hydronephrosis Right ureteral stone High serum calcium 01/2024 Kidney stone Leukocytosis Failure of outpatient treatment Generalized weakness Macular degeneration Cat scratch 02/17/2024 Stage 3b chronic kidney disease (CKD) Pulmonary hypertension RSVP 40-50mmHg per 04/2024 ECHO Heart valve disease 04/2024 ECHO: mild-mod AR, mod MR, mild TR CHIQUITA (generalized anxiety disorder) PVD (peripheral vascular disease) Hyperlipidemia SIADH (syndrome of inappropriate ADH production) usually takes salt tab; has been off since 06/27/24 [facility] admission History of recent hospitalization [facility] 06/25-06/27/24: dx: acute UTI, R ureteric stone (stent placement 06/25/24) acute on chronic CHF, acute hypoxemic resp failure Urinary tract infection Infection of wound hematoma H/O- 2016 HTN (hypertension) On amiodarone therapy Hypothyroidism History of anemia no current issues Hx of pleural effusion (2021) seen most recently on abd/pelvis CT 06/25/24 Chronic kidney disease, stage 3a IIIa/IIIb per chart review Macular degeneration Kidney stones Hx of congestive heart failure Paroxysmal atrial fibrillation controlled w/ amiodarone - follows w/ Dr Canela Hx of recurrent urinary tract infection completed abx 07/24/24 Pulmonary edema seen most recently abd/pelvis CT 06/25/24 Elevated brain natriuretic peptide (BNP) level hx of Shortness of breath mild, w/ exertion Chronic heart failure with preserved ejection fraction 05/02/24 ECHO: Grade II DD c/w marked CHF; EF 55-60% Atypical chest pain hx - denies current issues GERD (gastroesophageal reflux disease) Pneumonia hx- no issues since ~2021 per pt Diverticulitis h/o > 2019 Surgical History History of cystoscopy cysto, R ureteral stent 06/25/24: MAC without issue Hx of tubal ligation History of umbilical hernia repair incarcerated - unknown age Hx of hernia repair right inguinal 2013 Hx of cholecystectomy Hx of hysterectomy Family History Mother Stroke Social History Smoking Status: Never smoker Second Hand Exposure: No; Do You Dip or Chew Tobacco: No; Hx Alcohol Use: No Hx Substance Use: No Preferred Language: Maltese Communication Ability: Effective Panel Instrument Repairer Required: No Beliefs That Will Affect Care: None marital status: Current Living Situation: Alone Current Living Situation Comment: Has an aide who comes over current occupational status: retired How many Children do You have: 3 Feels Safe at Home: Yes Assistive Devices: Lift Chair and Walker Review of Systems Review of Systems: At least ten systems reviewed and negative, except as noted in the HPI. Physical Exam Physical Exam: General: Elderly F, NAD, sitting up in bed, A&Ox3, NUNAKAUYARMIUT, caregiver at bedside HEENT: Normocephalic, atraumatic, moist mucous membranes Respiratory: Normal respiratory effort, CTAB Cardiovascular: RRR, no BLE edema Abdomen/GI: Active bowel sounds, soft, nondistended, nontender to palpation in all quadrants Extremities/MSK: No cyanosis or clubbing, extremities motor strength intact, moves all extremities Neurologic: No overt focal deficits, CN's II-XI not formally tested but appear grossly intact bilaterally Results & Data Results & Data Vital Signs (Past 12 Hours) Vital Signs Temp Pulse Resp BP Pulse Ox O2 Del Method 01/18/25 13:40 70 01/18/25 12:45 36.9 C 59 L 18 133/62 98 Room Air Laboratory Results Short CBC 01/18/25 Range/Units 13:40 WBC 9.87 (4.8-10.8) K/ul Hgb 11.5 L (12.0-16.0) g/dl Hct 35.4 L (37.0-47.0) % Plt Count 285 (130-400) K/uL BMP 01/18/25 13:40 Sodium 133 L Potassium 4.3 Chloride 97 L Carbon Dioxide 28 BUN 17 Creatinine 1.09 Glucose 101 H Calcium 9.9 Liver Function 01/18/25 Range/Units 13:40 Total Bilirubin 1.2 H (0.2-1.0) mg/dl Direct Bilirubin 0.2 (0-0.2) mg/dl AST 288 H (13-39) U/L ALT 395 H (7-52) U/L Alkaline Phosphatase 192 H (34-104) U/L Albumin 4.1 (3.4-5.0) gm/dl Diagnostic Findings Humerus X-Ray 01/18/25 13:14 XR humerus RT 2V, XR shoulder RT min 2V routine CLINICAL HISTORY: pain COMPARISON: 03/02/2019 FINDINGS: There are mild degenerative changes at the right shoulder and right elbow. No fracture or dislocation seen at the right shoulder or right humerus. No osseous lesion seen. IMPRESSION: No fracture seen. ACT 112: Negative or not required by law. Electronically signed by: Real Thurman M.D. 01/18/2025 2:44 PM Shoulder X-Ray 01/18/25 13:14 XR humerus RT 2V, XR shoulder RT min 2V routine CLINICAL HISTORY: pain COMPARISON: 03/02/2019 FINDINGS: There are mild degenerative changes at the right shoulder and right elbow. No fracture or dislocation seen at the right shoulder or right humerus. No osseous lesion seen. IMPRESSION: No fracture seen. ACT 112: Negative or not required by law. Electronically signed by: Real Thurman M.D. 01/18/2025 2:44 PM Medications Administered Discontinued Medications Parenteral Electrolytes (Plasma-Lyte A Ph 7.4) 1,000 mls @ 999 mls/hr IV .Q1H1M ONE Stop: 01/18/25 14:11 Last Admin: 01/18/25 13:50 Dose: 999 mls/hr Documented By: ASHLEE Cefepime HCl (Maxipime 2000mg) 2,000 mg in 20 mls @ 5 mls/min IV NOW STA; Protocol Stop: 01/18/25 13:20 Last Admin: 01/18/25 13:50 Dose: 5 mls/min Documented By: ASHLEE Code Status & VTE Plan Code Status DNR/DNI - As per direct discussion with patient at bedside in the ED. Supervising Physician Co-Signing Physician Notes Attending addendum: The patient was seen and examined in emergency room in presence of the family member She was sent in from PCPs office with another attack of UTI She usually have minimal symptoms with any attack of UTI except minimal discomfort in the lower abdomen but no fever and no chills and no nausea or vomiting She denies any right upper quadrant pain, any bloating of the abdomen and she is s/p cholecystectomy in the past On examination Lying in bed without any acute distress She is very hard of hearing and also has thin stature Chestclear to auscultation bilaterally HeartS1, S2 with a 2-3/6 to ESM over precordium Abdomenmildly distended, nontender and bowel sound present Extremitiesno edema Local examination of the right great toe showed callosity with some tenderness involving the medial aspect and the patient was advised to have a podiatry appointment as an outpatient Her admission labs were noted and significant finding was very high LFTs and the urine culture report noted from 01/11 She denies any history of jaundice and any history of Tylenol use for pain Abnormal LFTs has been blamed or IV vancomycin and as per the GI note it has been improving who wanted to have an MRCP but the patient refused today Will check hepatitis panel and monitor LFTs while in the hospital For the recurrent UTI she was started with intravenous cefepime and will be continued Her other significant medical conditions as mentioned in H&P remain stable and managed as above Agree with assessment and plan as outlined above by Venessa Islas PA-C and take the full responsibility of care in the hospital Dr Deborah Moses (4) Hypertension Hypertension type: primary hypertension Qualified Code(s): I10 - Essential (primary) hypertension (8) (HFpEF) heart failure with preserved ejection fraction Heart failure chronicity: unspecified Qualified Code(s): I50.30 - Unspecified diastolic (congestive) heart failure (9) Hypothyroidism Hypothyroidism type: unspecified Qualified Code(s): E03.9 - Hypothyroidism, unspecified
[2025-01-18 17:05] LABS: Hep B Surface Ag with confirm Negative (Negative)
[2025-01-18 17:10] LABS: Hep C Ab Rflx HepCQuant RNA Negative (Negative)
[2025-01-18] MEDS ORDERED: PROMETHAZINE 6.25 MG/50.25 ML BAG IV PRN (18:13)
[2025-01-18] MEDS ORDERED: MAGNESIUM HYDROXIDE SUSP 30 ML UDC PO PRN (18:13)
[2025-01-18] MEDS ORDERED: POLYETHYLENE (MIRALAX) 17 GM PACK PO PRN (18:13)
[2025-01-18] MEDS: FUROSEMIDE 40 MG TAB PO SCH (19:20)
[2025-01-18] MEDS: AMIODARONE 200 MG TAB PO SCH (19:21)
[2025-01-18] MEDS: HEPARIN SOD 5,000 UNIT/0.5 ML VIAL SQ SCH (21:19)
[2025-01-18] MEDS: ARTIFICIAL TEARS OP SCH (21:19)
[2025-01-18] MEDS: METOPROLOL SUCC 50MG EXT REL TAB PO SCH (21:20)
[2025-01-18] MEDS: POTASSIUM CHLORIDE CRTAB 20 MEQ TABCR PO SCH (21:20)
[2025-01-19] MEDS: CEFEPIME 1000MG 1,000 MG/10 ML SYR IV SCH (01:27)
[2025-01-19] MEDS: LEVOTHYROXINE SODIUM 75 MCG TABLET PO SCH (05:46)
[2025-01-19 06:19] LABS: Hematocrit (blood only) 35.1 % (37.0-47.0); Hemoglobin 11.4 g/dl (12.0-16.0); Mean Corpuscular Hemoglobin 32.9 pg (25.0-34.0); Mean Corpuscular Volume 101.4 fL (80.0-100.0); Platelet Count 251 K/uL (130-400); RDW Standard Deviation 59.2 fL (36.4-46.3); Red Blood Count 3.46 M/uL (4.20-5.40); White Blood Count 8.68 K/ul (4.8-10.8)
[2025-01-19 06:39] LABS: Alanine Aminotransferase 361.0 U/L (7-52); Albumin Globulin Ratio 1.0 (0.9-2); Alkaline Phosphatase 178.0 U/L (34-104); Anion Gap 8.0 (3-11); Bilirubin,Total 1.2 mg/dl (0.2-1.0); Blood Urea Nitrogen 15.0 mg/dl (6-23); Calcium 9.4 mg/dl (8.6-10.3); Carbon Dioxide 28.0 mmol/L (21-32); Chloride 100.0 mmol/L (98-107); Creatinine Clr Calc Pharmacy 30.0 ml/min; Globulin 3.8 gm/dl (2.5-4.0); Glucose 101.0 mg/dl (70-99(Fasting)); Magnesium 2.2 mg/dl (1.7-2.4); Potassium 3.9 mmol/L (3.5-5.1); Sodium 136.0 mmol/L (136-145); Total Protein 7.5 gm/dl (6.0-8.3)
[2025-01-19] MEDS: ADVANCED PROBIOTIC 625 MG CAPSULE PO SCH (08:03)
[2025-01-19] MEDS: CEROVITE ADV FORMULA TAB PO SCH (08:03)
[2025-01-19] MEDS: CALCIUM POLYCARBOPHIL 625MG TAB PO SCH (08:04)
[2025-01-19] MEDS: MAGNESIUM OXIDE 400 MG TAB PO SCH (08:04)
[2025-01-19] MEDS: CYANOCOBALAMIN (B-12) 500 MCG TABLET PO SCH (08:04)
[2025-01-19] MEDS: ASPIRIN 325 MG ECTAB PO SCH (08:04)
[2025-01-19] MEDS: CALCIUM 600MG + VIT D 400 IU TAB PO SCH (08:04)
[2025-01-19] MEDS ORDERED: NON-FORMULARY MEDICATION (Vit C,E-Zn-Coppr-Lutein-Zeaxan [Preservision Areds-2] 250-90-40- PO SCH (09:00)
--- NOTE | 2025-01-19 13:42 | Hospitalist Progress Note ---
Date of Service January 19, 2025 Assessment & Plan (1) Recurrent urinary tract infection: Plan: Per admitting provider w/ addendum: Pt is an 85-year-old female with past medical history significant for SIADH, hypothyroidism, HLD, HTN, PVD, chronic HFpEF, PAF not on anticoagulation 2/2 history of falls and prior GI bleeding, LBBB/IVCD, prolonged QTc, valvular heart disease including aortic and mitral valve insufficiencies, venous insufficiency, GERD, CKD stage IIIb [baseline Cr 1.1-1.3], history of symptomatic anemia, history of aspiration pneumonitis, CHIQUITA, history of recurrent UTIs and other problems as outlined in her chart who presented to the ED via referral from her PCP for IV ABX therapy for a recurrent UTI. Confinement under our service last month for MRSA bacteremia of unclear source. Completed 4-week course of IV vancomycin as recommended by ID. Pt seen by PCP last week on 01/11/25 for her hospital DC f/u appt. C/o lower abdominal discomfort at this visit which is a common sx she experiences with UTIs. Urine culture completed which grew pansensitive Pseudomonas aeruginosa. PCP recommended po cipro. Pt elected to forego trial of cipro due to documented h/o fluoroquinolone rx - however it is unclear what pt's rx was and if it was specifically to cipro. Pt's caregiver suspects she had GI upset with fluoroquinolones previously parker srivastava pt cannot remember. OP urine culture, 01/11/25: pansensitive Pseudomonas aeruginosa * Susceptible to cefepime, ceftazidime, ciprofloxacin, meropenem, Zosyn and tobramycin per culture report S/p dose of IV cefepime in ED --> which was continued on admission -> discussed w/ ID today - will switch to zoyn for now (2) Transaminitis: Plan: OP LFTs on 01/11/25: alk phos 226, AST 435, ALT 728, T. bili 1.1 Repeat LFTs on admission: alk phos 192, AST 288, ALT 395, T. bili 1.2 Mention of cirrhosis on prior imaging studies but no obvious cause (does have severe and is on amiodarone) Pt previously refused EUS with bx and portal pressure measures per prior [facility] recommended that the pt undergo MRCP for further eval --> pt refused on admission, will try to obtain study, ordered Abnormal LFTs were also thought to be 2/2 recent IV vancomycin use for MRSA bacteremia (dx last confinement as per above) Pt denies any Tylenol use Will check acute hepatitis panel and follow LFT , continue to trend (3) Paroxysmal atrial fibrillation: Plan: Not on anticoagulation 2/2 h/o falls and prior GI bleeding Continue amiodarone, ASA and BB (4) Hypertension: Plan: Continue amlodipine with holding parameters (5) CHIQUITA (generalized anxiety disorder): Plan: Continue PRN BuSpar (6) Chronic hyponatremia: (7) History of SIADH: Plan: Na overall stable at time of admission Continue to monitor (8) (HFpEF) heart failure with preserved ejection fraction: Plan: Appears euvolemic on exam Continue Lasix and monitor daily wts/I&Os (9) Hypothyroidism: Plan: Continue levothyroxine (10) Stage 3b chronic kidney disease (CKD): Plan: Cr stable on admission Baseline Cr 1.1-1.3, continue to monitor and avoid nephrotoxic agents as able Other medical problems: Pt c/o R shoulder, R arm pain --> XR R shoulder/humerus grossly unremarkable Cont. to monitor DVT Prophylaxis: SQ heparin Disposition: Admit to med/surg Admission and Anticipated Discharge Date Admission Date: January 18, 2025 Subjective Pt seen in follow Recurrent UTI Recently admitted with MRSA bacteremia Also with elevated LFTs Currently sitting up in chair in NAD, awake, alert, answers appropriately. Says she has lower abdominal discomfort - "which she always gets with UTI", now seems improved Denies any fever, chills, chest pain, shortness of breath Discussed w/ ID - will try to obtain MRCP and will switch cefepime to zosyn Review of Systems Review of Systems: All systems reviewed & are unremarkable except as noted in Subjective Physical Exam Physical Exam: General: Elderly F, NAD, sitting up in bed, A&Ox3, [place], caregiver at bedside HEENT: Normocephalic, atraumatic, moist mucous membranes Respiratory: Normal respiratory effort, CTAB Cardiovascular: RRR, no BLE edema Abdomen/GI: Active bowel sounds, soft, nondistended, nontender to palpation in all quadrants Extremities/MSK:moves all extremities Neurologic: awake, alert, speech fluent, answers appropriately, moves extremities Results & Data Results & Data Vital Signs (Past 12 Hours) Vital Signs Temp Pulse Resp BP Pulse Ox O2 Del Method 01/19/25 07:47 36.3 C L 69 15 136/67 94 Room Air Laboratory Results 01/19/25 01/18/25 01/18/25 Range/Units 06:04 16:38 13:40 WBC 8.68 9.87 (4.8-10.8) K/ul RBC 3.46 L 3.48 L (4.20-5.40) M/uL Hgb 11.4 L 11.5 L (12.0-16.0) g/dl Hct 35.1 L 35.4 L (37.0-47.0) % MCV 101.4 H 101.7 H (80.0-100.0) fL MCH 32.9 33.0 (25.0-34.0) pg MCHC 32.5 32.5 (32.0-36.0) g/dL RDW Std Deviation 59.2 H 59.0 H (36.4-46.3) fL RDW Coeff of Ursula 15.9 H 15.9 H (11.5-14.5) % Plt Count 251 285 (130-400) K/uL MPV 10.2 10.2 (9.4-12.4) fL Immature Gran % (Auto) 0.5 % Neut % (Auto) 66.1 % Lymph % (Auto) 18.9 % [place] % (Auto) 12.9 % Eos % (Auto) 0.8 % Baso % (Auto) 0.8 % Neut # (Auto) 6.52 H (1.40-6.50) K/uL Lymph # (Auto) 1.87 (1.20-3.40) K/uL [place] # (Auto) 1.27 H (0.11-0.59) K/uL Eos # (Auto) 0.08 (0.00-0.50) K/uL Baso # (Auto) 0.08 (0.00-0.20) K/uL Immature Gran # (Auto) 0.05 (0.01-0.20) K/uL Sodium 136 133 L (136-145) mmol/L Potassium 3.9 4.3 (3.5-5.1) mmol/L Chloride 100 97 L (98-107) mmol/L Carbon Dioxide 28 28 (21-32) mmol/L Anion Gap 8 8 (3-11) BUN 15 17 (6-23) mg/dl Creatinine 0.95 1.09 (0.6-1.2) mg/dl Est Cr Clr Drug Dosing 30.0 Not Reportable eGFR 57.99 49.17 BUN/Creatinine Ratio 15.8 15.6 (10-20) Glucose 101 H 101 H (70-99(Fasting)) mg/dl Calcium 9.4 9.9 (8.6-10.3) mg/dl Magnesium 2.2 (1.7-2.4) mg/dl Total Bilirubin 1.2 H 1.2 H (0.2-1.0) mg/dl Direct Bilirubin 0.2 (0-0.2) mg/dl AST 261 H 288 H (13-39) U/L ALT 361 H 395 H (7-52) U/L Alkaline Phosphatase 178 H 192 H (34-104) U/L Total Protein 7.5 7.9 (6.0-8.3) gm/dl Albumin 3.7 4.1 (3.4-5.0) gm/dl Globulin 3.8 (2.5-4.0) gm/dl Albumin/Globulin Ratio 1.0 (0.9-2) Lipase 46 (11-82) U/L Procalcitonin 0.12 (0-0.5) ng/ml Hepatitis A IgM Ab Pending Hep Bs Antigen Negative (Negative) Hep B Core IgM Ab Pending Hepatitis C Antibody Negative (Negative) Medications Administered Current Inpatient Medications Amiodarone HCl (Amiodarone 200 Mg Tab) 200 mg PO QDD [facility] Stop: 02/17/25 16:29 Last Admin: 01/18/25 19:21 Dose: 200 mg Amlodipine Besylate (Amlodipine Besylate 5 Mg Tab) 5 mg PO DAILY [facility] Stop: 02/18/25 08:59 Last Admin: 01/19/25 08:04 Dose: 5 mg Artificial Tears (Artificial Tears) 1 drops OP QID [facility] Stop: 02/17/25 20:59 Last Admin: 01/19/25 13:07 Dose: 1 drops Aspirin (Aspirin 325 Mg Ectab) 325 mg PO DAILY [facility] Stop: 02/18/25 08:59 Last Admin: 01/19/25 08:04 Dose: 325 mg Buspirone HCl (Buspirone 5 Mg Tab) 5 mg PO BID PRN PRN Reason: Anxiety Stop: 02/17/25 16:23 Calcium Polycarbophil (Calcium Polycarbophil 625mg Tab) 625 mg PO DAILY [facility] Stop: 02/18/25 08:59 Last Admin: 01/19/25 08:04 Dose: 625 mg Calcium/Vitamin D (Calcium 600mg + Vit D 400 Iu Tab) 1 tab PO DAILY [facility] Stop: 02/18/25 08:59 Last Admin: 01/19/25 08:04 Dose: 1 tab Cyanocobalamin (Cyanocobalamin (B-12) 500 Mcg Tablet) 1,000 mcg PO Q2D [facility] Stop: 02/18/25 08:59 Last Admin: 01/19/25 08:04 Dose: 1,000 mcg Furosemide (Furosemide 40 Mg Tab) 40 mg PO BID17 [facility] Stop: 02/17/25 18:29 Last Admin: 01/19/25 08:04 Dose: 40 mg Heparin Sodium (Porcine) (Heparin Sod 5,000 Unit/0.5 Ml Vial) 5,000 units SQ Q12 [facility] Stop: 02/17/25 20:59 Last Admin: 01/19/25 08:04 Dose: 5,000 units Cefepime HCl (Maxipime 2000mg) 1,000 mg in 10 mls @ 5 mls/min IV Q12H [facility]; Protocol Stop: 01/24/25 01:59 Last Admin: 01/19/25 13:10 Dose: 5 mls/min Promethazine HCl (Phenergan) 6.25 mg in 50.25 mls @ 201 mls/hr IV Q6H PRN PRN Reason: Nausea And Vomiting Stop: 02/17/25 18:12 Lactobacillus Acidophilus (Advanced Probiotic 625 Mg Capsule) 1,250 mg PO DAILY [facility] Stop: 02/18/25 08:59 Last Admin: 01/19/25 08:03 Dose: 1,250 mg Levothyroxine Sodium (Levothyroxine Sodium 75 Mcg Tablet) 75 mcg PO DAILYBB [facility] Stop: 02/18/25 06:29 Last Admin: 01/19/25 05:46 Dose: 75 mcg Magnesium Hydroxide (Magnesium Hydroxide Susp 30 Ml Udc) 30 ml PO Q6H PRN PRN Reason: Constipation Stop: 02/17/25 18:12 Magnesium Oxide (Magnesium Oxide 400 Mg Tab) 400 mg PO DAILY [facility] Stop: 02/18/25 08:59 Last Admin: 01/19/25 08:04 Dose: 400 mg Metoprolol Succinate (Metoprolol Succ 50mg Ext Rel Tab) 50 mg PO BID [facility] Stop: 02/17/25 20:59 Last Admin: 01/19/25 08:04 Dose: 50 mg Multivitamins/Minerals (Cerovite Adv Formula Tab) 1 tab PO DAILY [facility] Stop: 02/18/25 08:59 Last Admin: 01/19/25 08:03 Dose: 1 tab Polyethylene Glycol (Polyethylene (Miralax) 17 Gm Pack) 17 gm PO DAILY PRN PRN Reason: Constipation Stop: 02/17/25 18:12 Potassium Chloride (Potassium Chloride Crtab 20 Meq Tabcr) 20 meq PO BID [facility] Stop: 02/17/25 20:59 Last Admin: 01/19/25 08:04 Dose: 20 meq (4) Hypertension Hypertension type: primary hypertension Qualified Code(s): I10 - Essential (primary) hypertension (8) (HFpEF) heart failure with preserved ejection fraction Heart failure chronicity: unspecified Qualified Code(s): I50.30 - Unspecified diastolic (congestive) heart failure (9) Hypothyroidism Hypothyroidism type: unspecified Qualified Code(s): E03.9 - Hypothyroidism, unspecified
--- NOTE | 2025-01-19 14:34 | Communication Note ---
Date of Service: January 19, 2025 Ms. Carlson is a 84-year-old woman with medical history of HTN, CKD stage 3, chronic heart failure preserved ejection fraction, severe mitral regurgitation, paroxysmal AFib, SIADH, hypothyroidism and recurrent nephrolithiasis who was admitted to [facility] on 01/18 after being referred by her primary care physician for treatment of Pseudomonas urinary tract infection. She saw her primary care physician on 01/11 because of lower abdominal discomfort which she attributed to possible urinary tract infection. At that time, urine culture was sent which grew Pseudomonas aeruginosa. The PCP suggested Cipro; however, the patient reported an allergic reaction to it (hives? ) And hence was referred to the hospital for intravenous antibiotics. On presentation, she was hypothermic at 36.3 and bradycardic with heart rate in the upper 50s; otherwise the rest of the vitals were within normal limits. Initial workup showed normocytic anemia, hyponatremia and elevated LFTs. Based on [facility] records, the 1st time she was noticed to have elevated LFTs was on 01/01 with another reading done in [facility] on 01/11 showing further worsening of the liver function tests. Her PCP contacted Gastroenterology at [facility] on 01/15/2025 who recommended obtaining MRCP. Of note, she was recently admitted to the hospital because of MRSA bacteremia with no identified source. At that time, we were consulted and decided on 4 weeks of IV vancomycin. Assessment: 1. Lower abdominal pain 2. Elevated LFTs - with cholestatic pattern 3. Cirrhotic liver disease - as documented on a CT abdomen pelvis in September and November 2024 4. Presumed cystitis Recommendations: Please change IV cefepime to IV piperacillin tazobactam which should cover Pseudomonas UTI as well as intra-abdominal infection. As per GI recommendations, obtain MRCP to further investigate the elevated LFTs. By Wednesday morning, the patient would have completed 3 days of appropriate antibiotics for acute cystitis. Therefore, no further need for antibiotics after that unless the MRCP shows infectious intra-abdominal pathology.
[2025-01-19] MEDS: PIPERACILLIN/TAZOBACTAM 4.5 GM/100 ML BAG IV STA (15:37)
[2025-01-19] MEDS: PIPERACILLIN/TAZOBACTAM 4.5 GM/100 ML BAG IV SCH (19:56)
--- NOTE | 2025-01-19 22:13 | Electrocardiogram Report ---
Test Reason : Blood Pressure : */* mmHG Vent. Rate : 55 BPM Atrial Rate : 55 BPM P-R Int : 330 ms QRS Dur : 138 ms QT Int : 494 ms P-R-T Axes : 70 211 58 degrees QTcB Int : 472 ms Sinus bradycardia with 1st degree A-V block Non-specific intra-ventricular conduction block Minimal voltage criteria for LVH, may be normal variant ( Eder product ) Anterolateral infarct , age undetermined Abnormal ECG When compared with ECG of 07-Dec-2024 03:37, Sinus rhythm has replaced Atrial fibrillation Vent. rate has decreased by 51 bpm Confirmed by Jay Khan ([id number]) on 01/19/2025 10:12:36 PM Referred By: REFERRED SELF Confirmed By: Jay Khan
[2025-01-20 06:06] LABS: Hematocrit (blood only) 32.5 % (37.0-47.0); Hemoglobin 11.1 g/dl (12.0-16.0); Mean Corpuscular Hemoglobin 34.3 pg (25.0-34.0); Mean Corpuscular Volume 100.3 fL (80.0-100.0); Platelet Count 198 K/uL (130-400); RDW Standard Deviation 59.4 fL (36.4-46.3); Red Blood Count 3.24 M/uL (4.20-5.40); White Blood Count 6.91 K/ul (4.8-10.8)
[2025-01-20 06:22] LABS: Alanine Aminotransferase 294.0 U/L (7-52); Albumin Globulin Ratio 1.0 (0.9-2); Alkaline Phosphatase 150.0 U/L (34-104); Anion Gap 7.0 (3-11); Bilirubin,Total 1.0 mg/dl (0.2-1.0); Blood Urea Nitrogen 16.0 mg/dl (6-23); Calcium 9.1 mg/dl (8.6-10.3); Carbon Dioxide 28.0 mmol/L (21-32); Chloride 98.0 mmol/L (98-107); Creatinine Clr Calc Pharmacy 21.9 ml/min; Globulin 3.3 gm/dl (2.5-4.0); Glucose 93.0 mg/dl (70-99(Fasting)); Magnesium 2.1 mg/dl (1.7-2.4); Potassium 4.1 mmol/L (3.5-5.1); Sodium 133.0 mmol/L (136-145); Total Protein 6.7 gm/dl (6.0-8.3)
--- NOTE | 2025-01-20 07:35 | Hospitalist Progress Note ---
Date of Service January 20, 2025 Assessment & Plan (1) Recurrent urinary tract infection: Plan: Per admitting provider w/ addendum: Pt is an 85-year-old female with past medical history significant for SIADH, hypothyroidism, HLD, HTN, PVD, chronic HFpEF, PAF not on anticoagulation 2/2 history of falls and prior GI bleeding, LBBB/IVCD, prolonged QTc, valvular heart disease including aortic and mitral valve insufficiencies, venous insufficiency, GERD, CKD stage IIIb [baseline Cr 1.1-1.3], history of symptomatic anemia, history of aspiration pneumonitis, CHIQUITA, history of recurrent UTIs and other problems as outlined in her chart who presented to the ED via referral from her PCP for IV ABX therapy for a recurrent UTI. Confinement under our service last month for MRSA bacteremia of unclear source. Completed 4-week course of IV vancomycin as recommended by ID. Pt seen by PCP last week on 01/11/25 for her hospital DC f/u appt. C/o lower abdominal discomfort at this visit which is a common sx she experiences with UTIs. Urine culture completed which grew pansensitive Pseudomonas aeruginosa. PCP recommended po cipro. Pt elected to forego trial of cipro due to documented h/o fluoroquinolone rx - however it is unclear what pt's rx was and if it was specifically to cipro. Pt's caregiver suspects she had GI upset with fluoroquinolones previously parker srivastava pt cannot remember. OP urine culture, 01/11/25: pansensitive Pseudomonas aeruginosa * Susceptible to cefepime, ceftazidime, ciprofloxacin, meropenem, Zosyn and tobramycin per culture report S/p dose of IV cefepime in ED --> which was continued on admission -> discussed w/ ID (01/19) - switched to zosyn for now (2) Transaminitis: Plan: OP LFTs on 01/11/25: alk phos 226, AST 435, ALT 728, T. bili 1.1 Repeat LFTs on admission: alk phos 192, AST 288, ALT 395, T. bili 1.2 Mention of cirrhosis on prior imaging studies but no obvious cause (does have severe and is on amiodarone) Pt previously refused EUS with bx and portal pressure measures per prior [facility] recommended that the pt undergo MRCP for further eval --> pt refused MRCP -> therefore CT abd/pelvis obtained after discussing w/ ID Abnormal LFTs were also thought to be 2/2 recent IV vancomycin use for MRSA bacteremia (dx last confinement as per above) Pt denies any Tylenol use Will check acute hepatitis panel and follow LFT , continue to trend LFTs trending down but still elevated CT abd.pelvis Impression: 1. Interval worsening of right lung base opacities, which may be due to a combination of atelectasis and pneumonia 2. Unchanged cirrhosis 3. Pancreatic ductal dilatation that appears slightly worsened. This could be due to a benign stricture such as from prior chronic pancreatitis. Intraductal papillary mucinous tumor is also a possibility, however. Follow-up MRCP or ERCP could be considered 4. Unchanged small pancreatic cyst, likely a benign congenital or post inflammatory cyst 5. Bilateral renal cysts 6. Unchanged right lower quadrant spigelian hernia containing small bowel loops. There is no associated bowel obstruction. 7. Diverticulosis without definite diverticulitis 01/20 Discussed with the pt recommendations for MRCP, she says she" plans to have EGD w/ GI - it's not scheduled as she is always in the hospital" LFTs trending down but still elevated Will further discuss w/ ID regarding abx (3) Paroxysmal atrial fibrillation: Plan: Not on anticoagulation 2/2 h/o falls and prior GI bleeding Continue amiodarone, ASA and BB (4) Hypertension: Plan: Continue amlodipine with holding parameters (5) CHIQUITA (generalized anxiety disorder): Plan: Continue PRN BuSpar (6) Chronic hyponatremia: (7) History of SIADH: Plan: Na overall stable at time of admission Continue to monitor (8) (HFpEF) heart failure with preserved ejection fraction: Plan: Appears euvolemic on exam Continue Lasix and monitor daily wts/I&Os (9) Hypothyroidism: Plan: Continue levothyroxine (10) Stage 3b chronic kidney disease (CKD): Plan: Cr stable on admission Baseline Cr 1.1-1.3, continue to monitor and avoid nephrotoxic agents as able Other medical problems: Pt c/o R shoulder, R arm pain --> XR R shoulder/humerus grossly unremarkable Cont. to monitor DVT Prophylaxis: SQ heparin Disposition: Admit to med/surg Admission and Anticipated Discharge Date Admission Date: January 18, 2025 Subjective Pt seen in follow Recurrent UTI Recently admitted with MRSA bacteremia Also with elevated LFTs Currently sitting up in chair in NAD, awake, alert, answers appropriately. Says she had lower abdominal discomfort - "which she always gets with UTI", now seems improved, denies any abd. pain today Denies any fever, chills, chest pain, shortness of breath Discussed w/ ID - tried to obtain MRCP and switched cefepime to zosyn. Pt declined MRCP and so obtained CT abd. pelvis instead. She also tells me she plans to have EGD w/ GI in the future but is not scheduled yet. Cr 1.3 - today - cont. to monitor , will recheck Cr tmrw Review of Systems Review of Systems: All systems reviewed & are unremarkable except as noted in Subjective Physical Exam Physical Exam: General: Elderly F, NAD, sitting up in chair, A&Ox3 HEENT: Normocephalic, atraumatic, moist mucous membranes Respiratory: Normal respiratory effort, CTAB Cardiovascular: RRR, no BLE edema Abdomen/GI: Active bowel sounds, soft, nondistended, nontender to palpation Extremities/MSK:moves all extremities Neurologic: awake, alert, speech fluent, answers appropriately, moves extremities Results & Data Results & Data Vital Signs (Past 12 Hours) Vital Signs Temp Pulse Resp BP Pulse Ox O2 Del Method 01/20/25 07:17 36.6 C 62 16 110/62 96 Room Air 01/19/25 20:03 36.7 C 59 L 16 98/54 L 96 Room Air Laboratory Results 01/20/25 Range/Units 05:48 WBC 6.91 (4.8-10.8) K/ul RBC 3.24 L (4.20-5.40) M/uL Hgb 11.1 L (12.0-16.0) g/dl Hct 32.5 L (37.0-47.0) % MCV 100.3 H (80.0-100.0) fL MCH 34.3 H (25.0-34.0) pg MCHC 34.2 (32.0-36.0) g/dL RDW Std Deviation 59.4 H (36.4-46.3) fL RDW Coeff of Ursula 16.0 H (11.5-14.5) % Plt Count 198 (130-400) K/uL MPV 10.3 (9.4-12.4) fL Sodium 133 L (136-145) mmol/L Potassium 4.1 (3.5-5.1) mmol/L Chloride 98 (98-107) mmol/L Carbon Dioxide 28 (21-32) mmol/L Anion Gap 7 (3-11) BUN 16 (6-23) mg/dl Creatinine 1.30 H D (0.6-1.2) mg/dl Est Cr Clr Drug Dosing 21.9 ml/min eGFR 39.80 BUN/Creatinine Ratio 12.3 (10-20) Glucose 93 (70-99(Fasting)) mg/dl Calcium 9.1 (8.6-10.3) mg/dl Phosphorus 3.1 (2.5-4.9) mg/dl Magnesium 2.1 (1.7-2.4) mg/dl Total Bilirubin 1.0 (0.2-1.0) mg/dl AST 201 H (13-39) U/L ALT 294 H (7-52) U/L Alkaline Phosphatase 150 H (34-104) U/L Total Protein 6.7 (6.0-8.3) gm/dl Albumin 3.4 (3.4-5.0) gm/dl Globulin 3.3 (2.5-4.0) gm/dl Albumin/Globulin Ratio 1.0 (0.9-2) Medications Administered Current Inpatient Medications Amiodarone HCl (Amiodarone 200 Mg Tab) 200 mg PO QDD [facility] Stop: 02/17/25 16:29 Last Admin: 01/19/25 17:15 Dose: 200 mg Amlodipine Besylate (Amlodipine Besylate 5 Mg Tab) 5 mg PO DAILY [facility] Stop: 02/18/25 08:59 Last Admin: 01/19/25 08:04 Dose: 5 mg Artificial Tears (Artificial Tears) 1 drops OP QID [facility] Stop: 02/17/25 20:59 Last Admin: 01/19/25 19:57 Dose: 1 drops Aspirin (Aspirin 325 Mg Ectab) 325 mg PO DAILY [facility] Stop: 02/18/25 08:59 Last Admin: 01/19/25 08:04 Dose: 325 mg Buspirone HCl (Buspirone 5 Mg Tab) 5 mg PO BID PRN PRN Reason: Anxiety Stop: 02/17/25 16:23 Calcium Polycarbophil (Calcium Polycarbophil 625mg Tab) 625 mg PO DAILY [facility]TE Stop: 02/18/25 08:59 Last Admin: 01/19/25 08:04 Dose: 625 mg Calcium/Vitamin D (Calcium 600mg + Vit D 400 Iu Tab) 1 tab PO DAILY [facility]TE Stop: 02/18/25 08:59 Last Admin: 01/19/25 08:04 Dose: 1 tab Cyanocobalamin (Cyanocobalamin (B-12) 500 Mcg Tablet) 1,000 mcg PO Q2D [facility] Stop: 02/18/25 08:59 Last Admin: 01/19/25 08:04 Dose: 1,000 mcg Furosemide (Furosemide 40 Mg Tab) 40 mg PO BID17 [facility] Stop: 02/17/25 18:29 Last Admin: 01/19/25 17:15 Dose: 40 mg Heparin Sodium (Porcine) (Heparin Sod 5,000 Unit/0.5 Ml Vial) 5,000 units SQ Q12 [facility] Stop: 02/17/25 20:59 Last Admin: 01/19/25 19:57 Dose: 5,000 units Promethazine HCl (Phenergan) 6.25 mg in 50.25 mls @ 201 mls/hr IV Q6H PRN PRN Reason: Nausea And Vomiting Stop: 02/17/25 18:12 Piperacillin Sod/Tazobactam Sod (Zosyn) 4.5 gm in 100 mls @ 25 mls/hr IV Q8H [facility]TE; Protocol Stop: 01/29/25 19:59 Last Admin: 01/20/25 05:05 Dose: 25 mls/hr Lactobacillus Acidophilus (Advanced Probiotic 625 Mg Capsule) 1,250 mg PO DAILY [facility] Stop: 02/18/25 08:59 Last Admin: 01/19/25 08:03 Dose: 1,250 mg Levothyroxine Sodium (Levothyroxine Sodium 75 Mcg Tablet) 75 mcg PO DAILYBB [facility] Stop: 02/18/25 06:29 Last Admin: 01/20/25 05:05 Dose: 75 mcg Magnesium Hydroxide (Magnesium Hydroxide Susp 30 Ml Udc) 30 ml PO Q6H PRN PRN Reason: Constipation Stop: 02/17/25 18:12 Magnesium Oxide (Magnesium Oxide 400 Mg Tab) 400 mg PO DAILY [facility] Stop: 02/18/25 08:59 Last Admin: 01/19/25 08:04 Dose: 400 mg Metoprolol Succinate (Metoprolol Succ 50mg Ext Rel Tab) 50 mg PO BID [facility]TE Stop: 02/17/25 20:59 Last Admin: 01/19/25 20:03 Dose: Not Given Multivitamins/Minerals (Cerovite Adv Formula Tab) 1 tab PO DAILY [facility]TE Stop: 02/18/25 08:59 Last Admin: 01/19/25 08:03 Dose: 1 tab Polyethylene Glycol (Polyethylene (Miralax) 17 Gm Pack) 17 gm PO DAILY PRN PRN Reason: Constipation Stop: 02/17/25 18:12 Potassium Chloride (Potassium Chloride Crtab 20 Meq Tabcr) 20 meq PO BID [facility]TE Stop: 02/17/25 20:59 Last Admin: 01/19/25 19:57 Dose: 20 meq Tramadol HCl (Tramadol Hcl 50 Mg Tablet) 25 mg PO TID PRN PRN Reason: Pain Stop: 02/18/25 20:14 Last Admin: 01/19/25 21:44 Dose: 25 mg (4) Hypertension Hypertension type: primary hypertension Qualified Code(s): I10 - Essential (primary) hypertension (8) (HFpEF) heart failure with preserved ejection fraction Heart failure chronicity: unspecified Qualified Code(s): I50.30 - Unspecified diastolic (congestive) heart failure (9) Hypothyroidism Hypothyroidism type: unspecified Qualified Code(s): E03.9 - Hypothyroidism, unspecified
[2025-01-20] MEDS: SODIUM CHLORIDE 0.9% 500 ML IV ONE (10:03)
[2025-01-20] MEDS: OPTIRAY 320 100ml IV ONE (10:23)
[2025-01-20 11:02] LABS: Hepatitis A Antibody IgM NON-REACTIVE (NON-REACTIVE); Hepatitis B Core Antibody IgM NON-REACTIVE (NON-REACTIVE)
--- NOTE | 2025-01-20 11:03 | CT Scan Report ---
Clinical History: Lower abdominal discomfort. Elevated liver function tests Technique: Axial computed tomography images were obtained of the abdomen and pelvis after the administration of intravenous contrast. Comparison is made to the prior CT dated 11/17/2024. Findings: The liver is shrunken and larger in contour, consistent with cirrhosis. No liver mass lesion is seen. The portal vein is patent. The gallbladder has been removed. No bile duct dilatation is noted. The spleen is of normal size. No focal splenic lesion is evident. There is an apparent 9 mm cyst in the proximal pancreatic body, unchanged. There is apparent slightly worsened dilatation of the main pancreatic duct, measuring up to 5 mm. The adrenal glands appear unremarkable. No definite renal or proximal ureteral calculi are seen on this contrast-enhanced study. There is unchanged dilatation of an extrarenal right renal pelvis. There is no hydronephrosis or perinephric stranding. No renal mass lesion is identified. There is a 1.3 cm right renal cyst and there is an 8 mm left renal cyst The aorta is of normal caliber. No abdominal adenopathy is seen. The stomach appears normal. There is no sign of small bowel obstruction. There is extensive diverticulosis without evidence of diverticulitis. No free intraperitoneal fluid or air is identified. There is unchanged right lower quadrant spigelian hernia containing small bowel loops. No distal ureteral or bladder calculi are seen. No bladder mass lesion is evident. The iliac arteries are of normal caliber. No pelvic adenopathy is noted. The uterus has been removed There are worsened multifocal interstitial and alveolar opacities in the right middle lobe and right lower lobe, concerning for a combination of atelectasis and pneumonia. There is unchanged left lower lobe atelectasis Mild thoracolumbar degenerative disc disease is seen. No fracture is identified. No focal osseous lesion is seen. There is a pectus excavatum deformity of the anterior chest wall Impression: 1. Interval worsening of right lung base opacities, which may be due to a combination of atelectasis and pneumonia 2. Unchanged cirrhosis 3. Pancreatic ductal dilatation that appears slightly worsened. This could be due to a benign stricture such as from prior chronic pancreatitis. Intraductal papillary mucinous tumor is also a possibility, however. Follow-up MRCP or ERCP could be considered 4. Unchanged small pancreatic cyst, likely a benign congenital or post inflammatory cyst 5. Bilateral renal cysts 6. Unchanged right lower quadrant spigelian hernia containing small bowel loops. There is no associated bowel obstruction. 7. Diverticulosis without definite diverticulitis ACT 112: Positive. There are findings on this exam that require communication between the performing entity and the patient following Patient Test Result Information Act ([place] ACT 112) guidelines. Electronically signed by Sundar Gale 01-20-2025 11:03 AM
[2025-01-21 06:09] LABS: Hematocrit (blood only) 33.7 % (37.0-47.0); Hemoglobin 10.7 g/dl (12.0-16.0); Mean Corpuscular Hemoglobin 32.5 pg (25.0-34.0); Mean Corpuscular Volume 102.4 fL (80.0-100.0); Platelet Count 205 K/uL (130-400); RDW Standard Deviation 60.8 fL (36.4-46.3); Red Blood Count 3.29 M/uL (4.20-5.40); White Blood Count 7.30 K/ul (4.8-10.8)
[2025-01-21 06:26] LABS: Alanine Aminotransferase 275.0 U/L (7-52); Albumin Globulin Ratio 1.0 (0.9-2); Alkaline Phosphatase 150.0 U/L (34-104); Anion Gap 5.0 (3-11); Bilirubin,Total 1.0 mg/dl (0.2-1.0); Blood Urea Nitrogen 13.0 mg/dl (6-23); Calcium 9.1 mg/dl (8.6-10.3); Carbon Dioxide 30.0 mmol/L (21-32); Chloride 99.0 mmol/L (98-107); Creatinine Clr Calc Pharmacy 23.0 ml/min; Globulin 3.4 gm/dl (2.5-4.0); Glucose 85.0 mg/dl (70-99(Fasting)); Magnesium 2.0 mg/dl (1.7-2.4); Potassium 3.9 mmol/L (3.5-5.1); Sodium 134.0 mmol/L (136-145); Total Protein 6.7 gm/dl (6.0-8.3)
--- NOTE | 2025-01-21 08:36 | Hospitalist Progress Note ---
Date of Service January 21, 2025 Assessment & Plan (1) Recurrent urinary tract infection: Plan: Per admitting provider w/ addendum: Pt is an 85-year-old female with past medical history significant for SIADH, hypothyroidism, HLD, HTN, PVD, chronic HFpEF, PAF not on anticoagulation 2/2 history of falls and prior GI bleeding, LBBB/IVCD, prolonged QTc, valvular heart disease including aortic and mitral valve insufficiencies, venous insufficiency, GERD, CKD stage IIIb [baseline Cr 1.1-1.3], history of symptomatic anemia, history of aspiration pneumonitis, CHIQUITA, history of recurrent UTIs and other problems as outlined in her chart who presented to the ED via referral from her PCP for IV ABX therapy for a recurrent UTI. Confinement under our service last month for MRSA bacteremia of unclear source. Completed 4-week course of IV vancomycin as recommended by ID. Pt seen by PCP last week on 01/11/25 for her hospital DC f/u appt. C/o lower abdominal discomfort at this visit which is a common sx she experiences with UTIs. Urine culture completed which grew pansensitive Pseudomonas aeruginosa. PCP recommended po cipro. Pt elected to forego trial of cipro due to documented h/o fluoroquinolone rx - however it is unclear what pt's rx was and if it was specifically to cipro. Pt's caregiver suspects she had GI upset with fluoroquinolones previously parker srivastava pt cannot remember. OP urine culture, 01/11/25: pansensitive Pseudomonas aeruginosa * Susceptible to cefepime, ceftazidime, ciprofloxacin, meropenem, Zosyn and tobramycin per culture report S/p dose of IV cefepime in ED --> which was continued on admission -> discussed w/ ID (01/19) - switched to zosyn for now (2) Transaminitis: Plan: OP LFTs on 01/11/25: alk phos 226, AST 435, ALT 728, T. bili 1.1 Repeat LFTs on admission: alk phos 192, AST 288, ALT 395, T. bili 1.2 Mention of cirrhosis on prior imaging studies but no obvious cause (does have severe and is on amiodarone) Pt previously refused EUS with bx and portal pressure measures per prior OP [facility] recommended that the pt undergo MRCP for further eval --> pt refused MRCP -> therefore CT abd/pelvis obtained after discussing w/ ID Abnormal LFTs were also thought to be 2/2 recent IV vancomycin use for MRSA bacteremia (dx last confinement as per above) Pt denies any Tylenol use Will check acute hepatitis panel and follow LFT , continue to trend LFTs trending down but still elevated CT abd.pelvis Impression: 1. Interval worsening of right lung base opacities, which may be due to a combination of atelectasis and pneumonia 2. Unchanged cirrhosis 3. Pancreatic ductal dilatation that appears slightly worsened. This could be due to a benign stricture such as from prior chronic pancreatitis. Intraductal papillary mucinous tumor is also a possibility, however. Follow-up MRCP or ERCP could be considered 4. Unchanged small pancreatic cyst, likely a benign congenital or post inflammatory cyst 5. Bilateral renal cysts 6. Unchanged right lower quadrant spigelian hernia containing small bowel loops. There is no associated bowel obstruction. 7. Diverticulosis without definite diverticulitis 01/20 Discussed with the pt recommendations for MRCP, she says she" plans to have EGD w/ GI - it's not scheduled as she is always in the hospital" LFTs trending down but still elevated Abdominal pain resolved Will further discuss w/ ID regarding abx (3) Paroxysmal atrial fibrillation: Plan: Not on anticoagulation 2/2 h/o falls and prior GI bleeding Continue amiodarone, ASA and BB (4) Hypertension: Plan: Continue amlodipine with holding parameters (5) CHIQUITA (generalized anxiety disorder): Plan: Continue PRN BuSpar (6) Chronic hyponatremia: (7) History of SIADH: Plan: Na overall stable at time of admission Continue to monitor (8) (HFpEF) heart failure with preserved ejection fraction: Plan: Appears euvolemic on exam Continue Lasix and monitor daily wts/I&Os (9) Hypothyroidism: Plan: Continue levothyroxine (10) Stage 3b chronic kidney disease (CKD): Plan: Cr stable on admission Baseline Cr 1.1-1.3, continue to monitor and avoid nephrotoxic agents as able Other medical problems: Pt c/o R shoulder, R arm pain --> XR R shoulder/humerus grossly unremarkable Says pain is improving Cont. to monitor DVT Prophylaxis: SQ heparin Disposition: Admit to med/surg Admission and Anticipated Discharge Date Admission Date: January 18, 2025 Subjective Pt seen in follow Recurrent UTI Recently admitted with MRSA bacteremia Also with elevated LFTs Currently sitting up in chair in NAD, awake, alert, answers appropriately. Says she had lower abdominal discomfort - "which she always gets with UTI", now seems resolved, denies any abd. pain today Denies any fever, chills, chest pain, shortness of breath Discussed w/ ID - tried to obtain MRCP and switched cefepime to zosyn. Pt decl ined MRCP and so obtained CT abd. pelvis instead. She also tells me she plans to have EGD w/ GI in the future but is not scheduled yet. Cr 1.3 - yesterday -> 1.2 today Review of Systems Review of Systems: All systems reviewed & are unremarkable except as noted in Subjective Physical Exam Physical Exam: General: Elderly F, NAD, sitting up in chair, A&Ox3 HEENT: Normocephalic, atraumatic, moist mucous membranes Respiratory: Normal respiratory effort, CTAB Cardiovascular: RRR, no BLE edema Abdomen/GI: Active bowel sounds, soft, nondistended, nontender to palpation Extremities/MSK:moves all extremities Neurologic: awake, alert, speech fluent, answers appropriately, moves extremities Results & Data Results & Data Vital Signs (Past 12 Hours) Vital Signs Temp Pulse Resp BP Pulse Ox O2 Del Method 01/21/25 07:17 36.4 C L 62 16 120/60 94 Room Air 01/20/25 22:47 36.6 C 60 20 106/62 98 Room Air 01/20/25 21:12 36.6 C 61 16 108/58 L 95 Room Air Laboratory Results 01/21/25 01/18/25 Range/Units 05:52 16:38 WBC 7.30 (4.8-10.8) K/ul RBC 3.29 L (4.20-5.40) M/uL Hgb 10.7 L (12.0-16.0) g/dl Hct 33.7 L (37.0-47.0) % MCV 102.4 H (80.0-100.0) fL MCH 32.5 (25.0-34.0) pg MCHC 31.8 L (32.0-36.0) g/dL RDW Std Deviation 60.8 H (36.4-46.3) fL RDW Coeff of Ursula 15.9 H (11.5-14.5) % Plt Count 205 (130-400) K/uL MPV 10.3 (9.4-12.4) fL Sodium 134 L (136-145) mmol/L Potassium 3.9 (3.5-5.1) mmol/L Chloride 99 (98-107) mmol/L Carbon Dioxide 30 (21-32) mmol/L Anion Gap 5 (3-11) BUN 13 (6-23) mg/dl Creatinine 1.24 H (0.6-1.2) mg/dl Est Cr Clr Drug Dosing 23.0 ml/min eGFR 42.12 BUN/Creatinine Ratio 10.5 (10-20) Glucose 85 (70-99(Fasting)) mg/dl Calcium 9.1 (8.6-10.3) mg/dl Phosphorus 3.1 (2.5-4.9) mg/dl Magnesium 2.0 (1.7-2.4) mg/dl Total Bilirubin 1.0 (0.2-1.0) mg/dl AST 196 H (13-39) U/L ALT 275 H (7-52) U/L Alkaline Phosphatase 150 H (34-104) U/L Total Protein 6.7 (6.0-8.3) gm/dl Albumin 3.3 L (3.4-5.0) gm/dl Globulin 3.4 (2.5-4.0) gm/dl Albumin/Globulin Ratio 1.0 (0.9-2) Hepatitis A IgM Ab NON-REACTIVE (NON-REACTIVE) Hep B Core IgM Ab NON-REACTIVE (NON-REACTIVE) Medications Administered Current Inpatient Medications Amiodarone HCl (Amiodarone 200 Mg Tab) 200 mg PO QDD [facility] Stop: 02/17/25 16:29 Last Admin: 01/20/25 16:45 Dose: 200 mg Amlodipine Besylate (Amlodipine Besylate 5 Mg Tab) 5 mg PO DAILY [facility] Stop: 02/18/25 08:59 Last Admin: 01/21/25 08:22 Dose: 5 mg Artificial Tears (Artificial Tears) 1 drops OP QID [facility] Stop: 02/17/25 20:59 Last Admin: 01/21/25 08:23 Dose: 1 drops Aspirin (Aspirin 325 Mg Ectab) 325 mg PO DAILY [facility] Stop: 10/12/25 08:59 Last Admin: 01/21/25 08:22 Dose: 325 mg Buspirone HCl (Buspirone 5 Mg Tab) 5 mg PO BID PRN PRN Reason: Anxiety Stop: 02/17/25 16:23 Calcium Polycarbophil (Calcium Polycarbophil 625mg Tab) 625 mg PO DAILY [facility] Stop: 02/18/25 08:59 Last Admin: 01/21/25 08:22 Dose: 625 mg Calcium/Vitamin D (Calcium 600mg + Vit D 400 Iu Tab) 1 tab PO DAILY [facility] Stop: 02/18/25 08:59 Last Admin: 01/21/25 08:23 Dose: Not Given Cyanocobalamin (Cyanocobalamin (B-12) 500 Mcg Tablet) 1,000 mcg PO Q2D [facility] Stop: 02/18/25 08:59 Last Admin: 01/21/25 08:22 Dose: 1,000 mcg Furosemide (Furosemide 40 Mg Tab) 40 mg PO BID17 [facility] Stop: 02/17/25 18:29 Last Admin: 01/21/25 08:22 Dose: 40 mg Heparin Sodium (Porcine) (Heparin Sod 5,000 Unit/0.5 Ml Vial) 5,000 units SQ Q12 [facility] Stop: 02/17/25 20:59 Last Admin: 01/21/25 08:23 Dose: 5,000 units Promethazine HCl (Phenergan) 6.25 mg in 50.25 mls @ 201 mls/hr IV Q6H PRN PRN Reason: Nausea And Vomiting Stop: 02/17/25 18:12 Piperacillin Sod/Tazobactam Sod (Zosyn) 4.5 gm in 100 mls @ 25 mls/hr IV Q8H [facility]; Protocol Stop: 01/29/25 19:59 Last Infusion: 01/21/25 08:13 Dose: Infused Lactobacillus Acidophilus (Advanced Probiotic 625 Mg Capsule) 1,250 mg PO DAILY [facility] Stop: 02/18/25 08:59 Last Admin: 01/21/25 08:22 Dose: 1,250 mg Levothyroxine Sodium (Levothyroxine Sodium 75 Mcg Tablet) 75 mcg PO DAILYBB [facility] Stop: 02/18/25 06:29 Last Admin: 01/21/25 06:07 Dose: 75 mcg Magnesium Hydroxide (Magnesium Hydroxide Susp 30 Ml Udc) 30 ml PO Q6H PRN PRN Reason: Constipation Stop: 02/17/25 18:12 Magnesium Oxide (Magnesium Oxide 400 Mg Tab) 400 mg PO DAILY [facility] Stop: 02/18/25 08:59 Last Admin: 01/21/25 08:22 Dose: 400 mg Metoprolol Succinate (Metoprolol Succ 50mg Ext Rel Tab) 50 mg PO BID [facility] Stop: 02/17/25 20:59 Last Admin: 01/21/25 08:22 Dose: 50 mg Multivitamins/Minerals (Cerovite Adv Formula Tab) 1 tab PO DAILY [facility] Stop: 02/18/25 08:59 Last Admin: 01/21/25 08:22 Dose: 1 tab Polyethylene Glycol (Polyethylene (Miralax) 17 Gm Pack) 17 gm PO DAILY PRN PRN Reason: Constipation Stop: 02/17/25 18:12 Potassium Chloride (Potassium Chloride Crtab 20 Meq Tabcr) 20 meq PO BID [facility] Stop: 02/17/25 20:59 Last Admin: 01/21/25 08:22 Dose: 20 meq Tramadol HCl (Tramadol Hcl 50 Mg Tablet) 25 mg PO TID PRN PRN Reason: Pain Stop: 02/18/25 20:14 Last Admin: 01/19/25 21:44 Dose: 25 mg (4) Hypertension Hypertension type: primary hypertension Qualified Code(s): I10 - Essential (primary) hypertension (8) (HFpEF) heart failure with preserved ejection fraction Heart failure chronicity: unspecified Qualified Code(s): I50.30 - Unspecified diastolic (congestive) heart failure (9) Hypothyroidism Hypothyroidism type: unspecified Qualified Code(s): E03.9 - Hypothyroidism, unspecified
[2025-01-22 07:20] LABS: Hematocrit (blood only) 32.0 % (37.0-47.0); Hemoglobin 10.3 g/dl (12.0-16.0); Mean Corpuscular Hemoglobin 32.8 pg (25.0-34.0); Mean Corpuscular Volume 101.9 fL (80.0-100.0); Platelet Count 177 K/uL (130-400); RDW Standard Deviation 58.9 fL (36.4-46.3); Red Blood Count 3.14 M/uL (4.20-5.40); White Blood Count 6.46 K/ul (4.8-10.8)
[2025-01-22 07:21] VITALS: RESP 16; O2SAT 95
[2025-01-22 07:36] LABS: Anion Gap 6.0 (3-11); Blood Urea Nitrogen 11.0 mg/dl (6-23); Calcium 9.0 mg/dl (8.6-10.3); Carbon Dioxide 32.0 mmol/L (21-32); Chloride 98.0 mmol/L (98-107); Creatinine Clr Calc Pharmacy 24.4 ml/min; Glucose 92.0 mg/dl (70-99(Fasting)); Magnesium 2.0 mg/dl (1.7-2.4); Potassium 3.6 mmol/L (3.5-5.1); Sodium 136.0 mmol/L (136-145)
[2025-01-22] MEDS: busPIRone 5 MG TAB PO PRN (08:01)
--- NOTE | 2025-01-22 11:42 | Discharge Summary ---
Date of Service January 22, 2025 Admission HPI Per Admitting Provider Patient is an 85-year-old female with past medical history significant for SIADH, hypothyroidism, HLD, HTN, PVD, chronic HFpEF, PAF not on anticoagulation 2/2 history of falls and prior GI bleeding, LBBB/IVCD, prolonged QTc, valvular heart disease including aortic and mitral valve insufficiencies, venous insufficiency, GERD, CKD stage IIIb [baseline Cr 1.1-1.3], history of symptomatic anemia, history of aspiration pneumonitis, CHIQUITA, history of recurrent UTIs and other problems as outlined in her chart who presented to the ED via referral from her PCP for IV ABX therapy for a recurrent UTI. Confinement under our service last month for MRSA bacteremia of unclear source. Completed 4-week course of IV vancomycin as recommended by ID. Recently returned home on 01/08/25 after being at [facility] following her last admission. Has a caregiver, Rachel, who is with her at bedside in the ED. Patient seen by PCP last week on 01/11/25 for her hospital DC follow-up appointment. Mentioned at that time she was experiencing some lower abdominal discomfort, which is a common symptom she experiences with UTIs. Urine culture was sent off which ended up growing pansensitive Pseudomonas aeruginosa. PCP recommended po ciprofloxacin, which showed sensitivity, however patient previously reported a prior reaction to fluoroquinolones including GI upset and hives. Patient unable to confirm this at bedside in the ED. And per discussion with the patient's caregiver, it is unclear if the patient has ever tried ciprofloxacin previously. Patient elected to forego trial of ciprofloxacin as recommended by her PCP, therefore she was sent in for IV ABX given her culture only showed additional sensitivity to cefepime, ceftazidime, meropenem, Zosyn and tobramycin. Patient with no major complaints at the time of my evaluation, states her lower abdominal discomfort has improved. No reported fevers, chills or myalgias. Denies any dysuria, increased urinary frequency or hematuria. No recent Cramer catheter placement [employer] or on admission. Appetite stable, denies any N/V. Admission Exam Per Admitting Provider General: Elderly F, NAD, sitting up in bed, A&Ox3, [place], caregiver at bedside HEENT: Normocephalic, atraumatic, moist mucous membranes Respiratory: Normal respiratory effort, CTAB Cardiovascular: RRR, no BLE edema Abdomen/GI: Active bowel sounds, soft, nondistended, nontender to palpation in all quadrants Extremities/MSK: No cyanosis or clubbing, extremities motor strength intact, moves all extremities Neurologic: No overt focal deficits, CN's II-XI not formally tested but appear grossly intact bilaterally Principal Diagnosis Recurrent UTI Elevated LFTs Discharge Exam General: Elderly F, NAD, sitting up in chair, A&Ox3 HEENT: Normocephalic, atraumatic, moist mucous membranes Respiratory: Normal respiratory effort, CTAB Cardiovascular: RRR, no BLE edema Abdomen/GI: Active bowel sounds, soft, nondistended, nontender to palpation Extremities/MSK:moves all extremities Neurologic: awake, alert, speech fluent, answers appropriately, moves extremities Discharge Data Allergies Allergy/AdvReac Type Severity Reaction Status Date / Time Quinolones Allergy Intermediate HIVES Verified 01/18/25 14:53 dabigatran etexilate Allergy Unknown ON Verified 01/18/25 14:53 Tellpe MED LIST metronidazole AdvReac Intermediate GI SYMPTOMS Verified 01/18/25 14:53 sulfamethoxazole AdvReac Intermediate Diarrhea Verified 01/18/25 14:53 trimethoprim AdvReac Intermediate Diarrhea Verified 01/18/25 14:53 Consultations 01/18/25 14:54 ED Decision to Admit Stat Ordered Studies 01/20/25 09:30 CT abd pelvis IV con only Routine Findings: The liver is shrunken and larger in contour, consistent with cirrhosis. No liver mass lesion is seen. The portal vein is patent. The gallbladder has been removed. No bile duct dilatation is noted. The spleen is of normal size. No focal splenic lesion is evident. There is an apparent 9 mm cyst in the proximal pancreatic body, unchanged. There is apparent slightly worsened dilatation of the main pancreatic duct, measuring up to 5 mm. The adrenal glands appear unremarkable. No definite renal or proximal ureteral calculi are seen on this contrast-enhanced study. There is unchanged dilatation of an extrarenal right renal pelvis. There is no hydronephrosis or perinephric stranding. No renal mass lesion is identified. There is a 1.3 cm right renal cyst and there is an 8 mm left renal cyst The aorta is of normal caliber. No abdominal adenopathy is seen. The stomach appears normal. There is no sign of small bowel obstruction. There is extensive diverticulosis without evidence of diverticulitis. No free intraperitoneal fluid or air is identified. There is unchanged right lower quadrant spigelian hernia containing small bowel loops. No distal ureteral or bladder calculi are seen. No bladder mass lesion is evident. The iliac arteries are of normal caliber. No pelvic adenopathy is noted. The uterus has been removed There are worsened multifocal interstitial and alveolar opacities in the right middle lobe and right lower lobe, concerning for a combination of atelectasis and pneumonia. There is unchanged left lower lobe atelectasis Mild thoracolumbar degenerative disc disease is seen. No fracture is identified. No focal osseous lesion is seen. There is a pectus excavatum deformity of the anterior chest wall Impression: 1. Interval worsening of right lung base opacities, which may be due to a combination of atelectasis and pneumonia 2. Unchanged cirrhosis 3. Pancreatic ductal dilatation that appears slightly worsened. This could be due to a benign stricture such as from prior chronic pancreatitis. Intraductal papillary mucinous tumor is also a possibility, however. Follow-up MRCP or ERCP could be considered 4. Unchanged small pancreatic cyst, likely a benign congenital or post inflammatory cyst 5. Bilateral renal cysts 6. Unchanged right lower quadrant spigelian hernia containing small bowel loops. There is no associated bowel obstruction. 7. Diverticulosis without definite diverticulitis ACT 112: Positive. There are findings on this exam that require communication between the performing entity and the patient following Patient Test Result Information Act ([place] ACT 112) guidelines. Electronically signed by Sundar Gale 01-20-2025 11:03 AM Hospital Course (1) Recurrent urinary tract infection: Pt is an 85-year-old female with past medical history significant for SIADH, hypothyroidism, HLD, HTN, PVD, chronic HFpEF, PAF not on anticoagulation 2/2 history of falls and prior GI bleeding, LBBB/IVCD, prolonged QTc, valvular heart disease including aortic and mitral valve insufficiencies, venous insufficiency, GERD, CKD stage IIIb [baseline Cr 1.1-1.3], history of symptomatic anemia, history of aspiration pneumonitis, CHIQUITA, history of recurrent UTIs and other problems as outlined in her chart who presented to the ED via referral from her PCP for IV ABX therapy for a recurrent UTI. Confinement under our service last month for MRSA bacteremia of unclear source. Completed 4-week course of IV vancomycin as recommended by ID. Pt seen by PCP last week on 01/11/25 for her hospital DC f/u appt. C/o lower abdominal discomfort at this visit which is a common sx she experiences with UTIs. Urine culture completed which grew pansensitive Pseudomonas aeruginosa. PCP recommended po cipro. Pt elected to forego trial of cipro due to documented h/o fluoroquinolone rx - however it is unclear what pt's rx was and if it was specifically to cipro. Pt's caregiver suspects she had GI upset with fluoroquinolones previously however pt cannot remember. OP urine culture, 01/11/25: pansensitive Pseudomonas aeruginosa * Susceptible to cefepime, ceftazidime, ciprofloxacin, meropenem, Zosyn and tobramycin per culture report S/p dose of IV cefepime in ED --> which was continued on admission -> discussed w/ ID (01/19) - switched to zosyn - > pt finished abx course while inpt (2) Transaminitis: OP LFTs on 01/11/25: alk phos 226, AST 435, ALT 728, T. bili 1.1 Repeat LFTs on admission: alk phos 192, AST 288, ALT 395, T. bili 1.2 Mention of cirrhosis on prior imaging studies but no obvious cause (does have severe and is on amiodarone) Pt previously refused EUS with bx and portal pressure measures per prior [facility] visit [facility] recommended that the pt undergo MRCP for further eval --> pt refused MRCP -> therefore CT abd/pelvis obtained after discussing w/ ID Abnormal LFTs were also thought to be 2/2 recent IV vancomycin use for MRSA bacteremia (dx last confinement as per above) Pt denies any Tylenol use Will check acute hepatitis panel and follow LFT , continue to trend LFTs trending down but still elevated CT abd.pelvis Impression: 1. Interval worsening of right lung base opacities, which may be due to a combination of atelectasis and pneumonia 2. Unchanged cirrhosis 3. Pancreatic ductal dilatation that appears slightly worsened. This could be due to a benign stricture such as from prior chronic pancreatitis. Intraductal papillary mucinous tumor is also a possibility, however. Follow-up MRCP or ERCP could be considered 4. Unchanged small pancreatic cyst, likely a benign congenital or post inflammatory cyst 5. Bilateral renal cysts 6. Unchanged right lower quadrant spigelian hernia containing small bowel loops. There is no associated bowel obstruction. 7. Diverticulosis without definite diverticulitis 01/20 Discussed with the pt recommendations for MRCP, she says she" plans to have EGD w/ GI - it's not scheduled as she is always in the hospital" LFTs trending down but still elevated Abdominal pain resolved Will further discuss w/ ID regarding abx -> recommend to stop zosyn, and to follow up w/ GI as above (3) Paroxysmal atrial fibrillation: Not on anticoagulation 2/2 h/o falls and prior GI bleeding Continue amiodarone, ASA and BB (4) Hypertension: Continue amlodipine with holding parameters (5) CHIQUITA (generalized anxiety disorder): Continue PRN BuSpar (6) Chronic hyponatremia: (7) History of SIADH: Na overall stable at time of admission Continue to monitor (8) (HFpEF) heart failure with preserved ejection fraction: Appears euvolemic on exam Continue Lasix and monitor daily wts/I&Os (9) Hypothyroidism: Continue levothyroxine (10) Stage 3b chronic kidney disease (CKD): Cr stable on admission Baseline Cr 1.1-1.3, continue to monitor and avoid nephrotoxic agents as able Other medical problems: Pt c/o R shoulder, R arm pain --> XR R shoulder/humerus grossly unremarkable Says pain is improving Cont. to monitor Follow up w/pcp Total Time Total Time Spent Total Time Spent (In Minutes): 40 Discharge Plan Discharge Items Patient Disposition: Home - Self-Care Reason For Visit: RECURRENT UTI Discharge Diagnosis: Recurrent UTI Elevated LFTs Activity: Per Instructions section Non-emergency contact: Primary Care Provider, Specialist and Activities Attendant Call non-emergency contact if: you have any medication questions and your symptoms worsen Follow-up/Referrals: Kodi Lizarraga MD [Primary Care Provider] - (Date & Time 01/26/2025 11:20 AM Provider: Kodi Lizarraga MD [facility] ) Diet: Heart Healthy Diet Texture: Easy to Chew Addtl Attending Provider Instructions: Follow up with primary care physician and gastroenterology. The appointment with your primary care physician was scheduled for you for January 26, 2025. Pending Studies at Discharge: No Stand-Alone Forms: My [facility], Smoking Cessation Medications and DC Order Prescriptions: Continued PreserVision AREDS-2 250-90-40-1 mg Capsule 2 tab PO DAILY buspirone 5 mg tablet 5 mg PO BID PRN (Reason: Anxiety) Qty: 14 0RF aspirin 325 mg Tablet 325 mg PO DAILY 30 Days Qty: 30 0RF metoprolol succinate 50 mg tablet extended release 24 hr 50 mg PO BID 30 Days Qty: 60 0RF cyanocobalamin (vitamin B-12) 1,000 mcg Tablet 1,000 mcg PO Q OTHER DAY Qty: 30 0RF methenamine hippurate 1 gram tablet 1 g PO BID 30 Days Qty: 60 0RF multivitamin with minerals Tablet 1 tab PO DAILY Qty: 30 0RF calcium carbonate-vitamin D3 [Calcium 600 + D(3)] 600 mg-10 mcg (400 unit) Tablet 1 tab PO DAILY 3 Days Qty: 3 0RF Advanced Probiotic 625 mg (10 billion cell) Capsule 2 cap PO DAILY Qty: 60 0RF magnesium oxide 400 mg magnesium Tablet 400 mg PO DAILY Qty: 30 0RF furosemide 40 mg tablet 40 mg PO BID amlodipine 5 mg tablet 5 mg PO DAILY ascorbic acid (vitamin C) [Vitamin C] 500 mg Tablet 500 mg PO DAILY calcium polycarbophil [FiberCon] 625 mg Tablet 625 mg PO DAILY albuterol sulfate [ProAir HFA] 90 mcg/actuation Hfa Aerosol Inhaler 2 puff INHALATION Q4H PRN (Reason: Wheezing) diclofenac sodium [Voltaren] 1 % Gel 2 g TOPICAL QID PRN (Reason: JOINT PAIN) potassium chloride 20 mEq tablet extended release 20 meq PO BID Rx Instructions: 01/09/25 PER [facility]. 01/16/25 [facility] TO 10 MEQ--TAKE 2 CAPSULES QAM, SEPTEMBER OOPEN CAPSULE AND TAKE WITH APPLE SAUCE. amiodarone 200 mg tablet 200 mg PO QDD levothyroxine 75 mcg tablet 75 mcg PO DAILYBB Systane Ultra 0.4-0.3 % drops 1 drp OPB QID Discharge Orders: Discharge Order (Routine); Ordered 01/22/25 Ordered By: Navneet House Admission Data Admit Date/Time: 01/18/25 15:08 Attending Provider: Navneet House Admit Provider: Jimbo Moses Primary Care Provider: Kodi Lizarraga Other Providers: Jimbo Moses; [facility]
--- NOTE | 2025-01-22 15:56 | Hospitalist Progress Note ---
Date of Service January 22, 2025 Assessment & Plan (1) Recurrent urinary tract infection: Plan: Pt is an 85-year-old female with past medical history significant for SIADH, hypothyroidism, HLD, HTN, PVD, chronic HFpEF, PAF not on anticoagulation 2/2 history of falls and prior GI bleeding, LBBB/IVCD, prolonged QTc, valvular heart disease including aortic and mitral valve insufficiencies, venous insufficiency, GERD, CKD stage IIIb [baseline Cr 1.1-1.3], history of symptomatic anemia, history of aspiration pneumonitis, CHIQUITA, history of recurrent UTIs and other problems as outlined in her chart who presented to the ED via referral from her PCP for IV ABX therapy for a recurrent UTI. Confinement under our service last month for MRSA bacteremia of unclear source. Completed 4-week course of IV vancomycin as recommended by ID. Pt seen by PCP last week on 01/11/25 for her hospital DC f/u appt. C/o lower abdominal discomfort at this visit which is a common sx she experiences with UTIs. Urine culture completed which grew pansensitive Pseudomonas aeruginosa. PCP recommended po cipro. Pt elected to forego trial of cipro due to documented h/o fluoroquinolone rx - however it is unclear what pt's rx was and if it was specifically to cipro. Pt's caregiver suspects she had GI upset with fluoroquinolones previously however pt cannot remember. OP urine culture, 01/11/25: pansensitive Pseudomonas aeruginosa * Susceptible to cefepime, ceftazidime, ciprofloxacin, meropenem, Zosyn and tobramycin per culture report S/p dose of IV cefepime in ED --> which was continued on admission -> discussed w/ ID (01/19) - switched to zosyn - > pt finished abx course while inpt (2) Transaminitis: Plan: OP LFTs on 01/11/25: alk phos 226, AST 435, ALT 728, T. bili 1.1 Repeat LFTs on admission: alk phos 192, AST 288, ALT 395, T. bili 1.2 Mention of cirrhosis on prior imaging studies but no obvious cause (does have severe and is on amiodarone) Pt previously refused EUS with bx and portal pressure measures per prior [facility] visit [facility] recommended that the pt undergo MRCP for further eval --> pt refused MRCP -> therefore CT abd/pelvis obtained after discussing w/ ID Abnormal LFTs were also thought to be 2/2 recent IV vancomycin use for MRSA bacteremia (dx last confinement as per above) Pt denies any Tylenol use Will check acute hepatitis panel and follow LFT , continue to trend LFTs trending down but still elevated CT abd.pelvis Impression: 1. Interval worsening of right lung base opacities, which may be due to a combination of atelectasis and pneumonia 2. Unchanged cirrhosis 3. Pancreatic ductal dilatation that appears slightly worsened. This could be due to a benign stricture such as from prior chronic pancreatitis. Intraductal papillary mucinous tumor is also a possibility, however. Follow-up MRCP or ERCP could be considered 4. Unchanged small pancreatic cyst, likely a benign congenital or post inflammatory cyst 5. Bilateral renal cysts 6. Unchanged right lower quadrant spigelian hernia containing small bowel loops. There is no associated bowel obstruction. 7. Diverticulosis without definite diverticulitis 01/20 Discussed with the pt recommendations for MRCP, she says she" plans to have EGD w/ GI - it's not scheduled as she is always in the hospital" LFTs trending down but still elevated Abdominal pain resolved Will further discuss w/ ID regarding abx -> recommend to stop zosyn, and to follow up w/ GI as above (3) Paroxysmal atrial fibrillation: Plan: Not on anticoagulation 2/2 h/o falls and prior GI bleeding Continue amiodarone, ASA and BB (4) Hypertension: Plan: Continue amlodipine with holding parameters (5) CHIQUITA (generalized anxiety disorder): Plan: Continue PRN BuSpar (6) Chronic hyponatremia: (7) History of SIADH: Plan: Na overall stable at time of admission Continue to monitor (8) (HFpEF) heart failure with preserved ejection fraction: Plan: Appears euvolemic on exam Continue Lasix and monitor daily wts/I&Os (9) Hypothyroidism: Plan: Continue levothyroxine (10) Stage 3b chronic kidney disease (CKD): Plan: Cr stable on admission Baseline Cr 1.1-1.3, continue to monitor and avoid nephrotoxic agents as able Other medical problems: Pt c/o R shoulder, R arm pain --> XR R shoulder/humerus grossly unremarkable Says pain is improving Cont. to monitor Follow up w/pcp Update: 01/22 PM notified by RN that pt is having more pain and more swelling in her arm, also has hx of PICC line recently in that arm - US doppler ordered Admission and Anticipated Discharge Date Admission Date: January 18, 2025 Subjective Pt seen in follow Recurrent UTI Recently admitted with MRSA bacteremia Also with elevated LFTs Currently sitting up in chair in NAD, awake, alert, answers appropriately. Says she had lower abdominal discomfort - "which she always gets with UTI", now seems resolved, denies any abd. pain today Denies any fever, chills, chest pain, shortness of breath Discussed w/ ID - tried to obtain MRCP and switched cefepime to zosyn. Pt declined MRCP and so obtained CT abd. pelvis instead. She also tells me she plans to have EGD w/ GI in the future but is not scheduled yet. Pt was discharged home, however in the afternoon RN noticed that her RUE got more swollen and painful, therefore US was ordered , she has hx of PICC line in that arm recently DC was cancelled Review of Systems Review of Systems: All systems reviewed & are unremarkable except as noted in Subjective Physical Exam Physical Exam: General: Elderly F, NAD, sitting up in chair, A&Ox3 HEENT: Normocephalic, atraumatic, moist mucous membranes Respiratory: Normal respiratory effort, CTAB Cardiovascular: RRR, no BLE edema Abdomen/GI: Active bowel sounds, soft, nondistended, nontender to palpation Extremities/MSK:moves all extremities Neurologic: awake, alert, speech fluent, answers appropriately, moves e xtremities Results & Data Results & Data Vital Signs (Past 12 Hours) Vital Signs Temp Pulse Resp BP Pulse Ox O2 Del Method 01/22/25 14:36 36.6 C 64 16 141/79 H 95 Room Air 01/22/25 09:00 Room Air 01/22/25 07:19 36.5 C 61 16 125/70 95 Room Air Laboratory Results 01/22/25 Range/Units 07:06 WBC 6.46 (4.8-10.8) K/ul RBC 3.14 L (4.20-5.40) M/uL Hgb 10.3 L (12.0-16.0) g/dl Hct 32.0 L (37.0-47.0) % MCV 101.9 H (80.0-100.0) fL MCH 32.8 (25.0-34.0) pg MCHC 32.2 (32.0-36.0) g/dL RDW Std Deviation 58.9 H (36.4-46.3) fL RDW Coeff of Ursula 15.5 H (11.5-14.5) % Plt Count 177 (130-400) K/uL MPV 10.1 (9.4-12.4) fL Sodium 136 (136-145) mmol/L Potassium 3.6 (3.5-5.1) mmol/L Chloride 98 (98-107) mmol/L Carbon Dioxide 32 (21-32) mmol/L Anion Gap 6 (3-11) BUN 11 (6-23) mg/dl Creatinine 1.17 (0.6-1.2) mg/dl Est Cr Clr Drug Dosing 24.4 ml/min eGFR 45.16 BUN/Creatinine Ratio 9.4 L (10-20) Glucose 92 (70-99(Fasting)) mg/dl Calcium 9.0 (8.6-10.3) mg/dl Phosphorus 3.1 (2.5-4.9) mg/dl Magnesium 2.0 (1.7-2.4) mg/dl Medications Administered Current Inpatient Medications Amiodarone HCl (Amiodarone 200 Mg Tab) 200 mg PO QDD [facility] Stop: 02/17/25 16:29 Last Admin: 01/21/25 16:28 Dose: 200 mg Amlodipine Besylate (Amlodipine Besylate 5 Mg Tab) 5 mg PO DAILY [facility] Stop: 02/18/25 08:59 Last Admin: 01/22/25 08:02 Dose: 5 mg Artificial Tears (Artificial Tears) 1 drops OP QID [facility] Stop: 02/17/25 20:59 Last Admin: 01/22/25 12:02 Dose: Not Given Aspirin (Aspirin 325 Mg Ectab) 325 mg PO DAILY [facility] Stop: 02/18/25 08:59 Last Admin: 01/22/25 08:03 Dose: 325 mg Buspirone HCl (Buspirone 5 Mg Tab) 5 mg PO BID PRN PRN Reason: Anxiety Stop: 02/17/25 16:23 Last Admin: 01/22/25 08:01 Dose: 5 mg Calcium Polycarbophil (Calcium Polycarbophil 625mg Tab) 625 mg PO DAILY [facility] Stop: 02/18/25 08:59 Last Admin: 01/22/25 08:04 Dose: 625 mg Calcium/Vitamin D (Calcium 600mg + Vit D 400 Iu Tab) 1 tab PO DAILY [facility] Stop: 02/18/25 08:59 Last Admin: 01/22/25 08:02 Dose: 1 tab Cyanocobalamin (Cyanocobalamin (B-12) 500 Mcg Tablet) 1,000 mcg PO Q2D [facility] Stop: 02/18/25 08:59 Last Admin: 01/21/25 08:22 Dose: 1,000 mcg Furosemide (Furosemide 40 Mg Tab) 40 mg PO BID17 [facility] Stop: 02/17/25 18:29 Last Admin: 01/22/25 08:02 Dose: 40 mg Heparin Sodium (Porcine) (Heparin Sod 5,000 Unit/0.5 Ml Vial) 5,000 units SQ Q12 [facility] Stop: 02/17/25 20:59 Last Admin: 01/22/25 07:59 Dose: 5,000 units Promethazine HCl (Phenergan) 6.25 mg in 50.25 mls @ 201 mls/hr IV Q6H PRN PRN Reason: Nausea And Vomiting Stop: 02/17/25 18:12 Piperacillin Sod/Tazobactam Sod (Zosyn) 4.5 gm in 100 mls @ 25 mls/hr IV Q8H [facility]; Protocol Stop: 01/29/25 19:59 Last Admin: 01/22/25 11:49 Dose: Not Given Lactobacillus Acidophilus (Advanced Probiotic 625 Mg Capsule) 1,250 mg PO DAILY [facility] Stop: 02/18/25 08:59 Last Admin: 01/22/25 08:02 Dose: 1,250 mg Levothyroxine Sodium (Levothyroxine Sodium 75 Mcg Tablet) 75 mcg PO DAILYBB [facility] Stop: 02/18/25 06:29 Last Admin: 01/22/25 05:44 Dose: 75 mcg Magnesium Hydroxide (Magnesium Hydroxide Susp 30 Ml Udc) 30 ml PO Q6H PRN PRN Reason: Constipation Stop: 02/17/25 18:12 Magnesium Oxide (Magnesium Oxide 400 Mg Tab) 400 mg PO DAILY [facility] Stop: 02/18/25 08:59 Last Admin: 01/22/25 08:02 Dose: 400 mg Metoprolol Succinate (Metoprolol Succ 50mg Ext Rel Tab) 50 mg PO BID [facility] Stop: 02/17/25 20:59 Last Admin: 01/22/25 08:02 Dose: 50 mg Multivitamins/Minerals (Cerovite Adv Formula Tab) 1 tab PO DAILY [facility] Stop: 02/18/25 08:59 Last Admin: 01/22/25 08:02 Dose: 1 tab Polyethylene Glycol (Polyethylene (Miralax) 17 Gm Pack) 17 gm PO DAILY PRN PRN Reason: Constipation Stop: 02/17/25 18:12 Potassium Chloride (Potassium Chloride Crtab 20 Meq Tabcr) 20 meq PO BID [facility] Stop: 02/17/25 20:59 Last Admin: 01/22/25 08:00 Dose: 20 meq Tramadol HCl (Tramadol Hcl 50 Mg Tablet) 25 mg PO TID PRN PRN Reason: Pain Stop: 02/18/25 20:14 Last Admin: 01/22/25 13:34 Dose: 25 mg (4) Hypertension Hypertension type: primary hypertension Qualified Code(s): I10 - Essential (primary) hypertension (8) (HFpEF) heart failure with preserved ejection fraction Heart failure chronicity: unspecified Qualified Code(s): I50.30 - Unspecified diastolic (congestive) heart failure (9) Hypothyroidism Hypothyroidism type: unspecified Qualified Code(s): E03.9 - Hypothyroidism, unspecified
--- NOTE | 2025-01-22 23:45 | Ultrasound Report ---
Exam(s): US VENOUS RIGHT UPPER EXTREMITY EXAM: US Duplex Right Upper Extremity Veins CLINICAL HISTORY: Reason for exam: r/o dvt, hx of picc line. TECHNIQUE: Real-time duplex ultrasound scan of the right upper extremity veins integrating B-mode two-dimensional vascular structure, Doppler spectral analysis, color flow Doppler imaging and compression. COMPARISON: No relevant prior studies available. FINDINGS: Deep veins: Unremarkable. No DVT in the internal jugular, subclavian, axillary, or brachial veins. The veins demonstrate normal color flow, are normally compressible, with normal phasic flow and/or augmentation response. Superficial veins: Unremarkable. No thrombus in the visualized basilic and cephalic veins. Soft tissues: 13.7 x 3 x 3 point 5 cm complex cystic structure with heterogeneous echotexture consistent with a hematoma within the right upper arm. IMPRESSION: No DVT 13 cm right upper arm hematoma Electronically signed by: Jacobo Mcclure MD 01/22/25 23:44 PM
[2025-01-23 06:35] LABS: Hematocrit (blood only) 31.1 % (37.0-47.0); Hemoglobin 10.0 g/dl (12.0-16.0); Mean Corpuscular Hemoglobin 32.6 pg (25.0-34.0); Mean Corpuscular Volume 101.3 fL (80.0-100.0); Platelet Count 200 K/uL (130-400); RDW Standard Deviation 57.7 fL (36.4-46.3); Red Blood Count 3.07 M/uL (4.20-5.40); White Blood Count 10.07 K/ul (4.8-10.8)
[2025-01-23 06:49] LABS: Anion Gap 6.0 (3-11); Blood Urea Nitrogen 15.0 mg/dl (6-23); Calcium 9.3 mg/dl (8.6-10.3); Carbon Dioxide 30.0 mmol/L (21-32); Chloride 97.0 mmol/L (98-107); Creatinine Clr Calc Pharmacy 21.8 ml/min; Glucose 104.0 mg/dl (70-99(Fasting)); Magnesium 2.1 mg/dl (1.7-2.4); Potassium 3.8 mmol/L (3.5-5.1); Sodium 133.0 mmol/L (136-145)
[2025-01-23 07:34] VITALS: BP 100/59; PULSE 59; TEMP 97.5
== END 2025-01-23 16:36 | disposition home or self-care (01) | DRG 690 ==
LOC: ED 12:42 → SUATTDRO 15:08 → 3E 15:08

== ENCOUNTER 2025-04-28 03:16 | Inpatient (IN) ==
--- NOTE | 2025-04-28 03:31 | Emergency Department Note ---
Impression & Plan Bilateral edema of lower extremity, Hyponatremia, CHF (congestive heart failure) ED Provider Note ED Provider Note NAME: JEN GALLOWAY AGE:85 SEX: Female : 1940 ARRIVES VIA: EMS INFORMANT: Patient ED PROVIDER(s): Beena Worrell DO CHIEF COMPLAINT: Increased leg swelling HPI: This is an 85-year-old female brought in by EMS due to concern for increased leg swelling that began yesterday evening. Patient states both legs seem more swollen compared to normal and the left is worse than the right. Patient denies any accompanying pain. She denies any trauma or injury. She denies being on her feet more than normal. She states she does take a diuretic daily due to a history of congestive heart failure. She denies missing or skipping any doses. She denies any dietary indiscretion. She denies any change in her medications. Patient states she takes aspirin daily, no other anticoagulation. Patient does live alone, does typically use a walker. No recent fevers/chills, or URI symptoms. PAST MEDICAL HISTORY:See Below PAST SURGICAL HISTORY:See Below FAMILY HISTORY:See Below SOCIAL HISTORY:See Below HOME MEDICATIONS:See Below ALLERGIES:See Below VITALS:See Below PHYSICAL EXAMINATION: GENERAL: alert, well appearing, well nourished, no distress, non-toxic EYE EXAM: normal conjunctiva, PERRL and EOM's grossly intact OROPHARYNX: no exudate, no erythema, lips, buccal mucosa, and tongue normal and mucous membranes are moist NECK: supple, no nuchal rigidity, no adenopathy, non-tender LUNGS: Clear to auscultation. Normal chest wall mechanics, no w/r/r, no tachypnea, no increased work of breathing HEART: no murmurs, S1 normal and S2 normal ABDOMEN: abdomen soft, non-tender, normo-active bowel sounds, no masses, no rebound or guarding. BACK: Back is symmetrical on inspection and there is no deformity, no midline tenderness, no CVA tenderness. SKIN: no rashes, petechiae, orbruising UPPER EXTREMITIES: upper extremities are grossly normal. FROM, nml pulses b/l. LOWER EXTREMITIES: 2+ b/l pitting edema, L>R. FROM, nml pulses b/l. Mild erythema noted to distal b/l anterior LE. NEURO EXAM: Normal sensorium, cranial nerves II-XII grossly intact, normal speech, no facial droop,nogross weakness of arms, no gross weakness of legs. Gross sensation intact. No ataxia. Vital Signs: reviewed and remarkable Differential Diagnosis: CHF, medication ADR, DVT, hypoalbuminemia, PEYTON, cellulitis, lymphedema, as well as others were considered MEDICAL DECISION MAKING: This is an 85-year-old female who presents to the department concern for increased lower extremity edema. She was afebrile and hemodynamically stable on room air labs are drawn and sent, IV established, EKG performed at bedside and interpreted by me and she was monitored on telemetry. Ultrasound was added as precaution as the patient is not anticoagulated. I did discuss lab results with the patient at bedside. She states she has been told that her sodium has been low in the past but does not remember why. She states she is taking all of her medications as prescribed. She denied any dietary indiscretion. BNP noted to be elevated also. Normal creatinine noted, no other electrolyte abnormalities. Case discussed with hospitalist team for additional evaluation and management. Lower extremity ultrasound still pending at that time. Patient denied any overt shortness of breath, chest pain, palpitations. Consultation(s): 0502: Discussed with Dr. Eng, [facility] hospitalist team, for additional evaluation and mgmt. US still pending. ER Treatment Provided: See below Diagnostics Interpreted By Me: -ECG: Sinus bradycardia 55, first-degree AV block, rightward axis, prolonged QRS and QTc, nonspecific ST/T wave changes, unchanged from January 18, 2025 -Cardiac Monitoring: An order was placed for continuous cardiac monitoring. The monitor shows a rate of 66 with normal sinus rhythm. -Laboratory studies: As stated above and show below. Triage Nursing Note Reviewed Prior/Outside Records Reviewed Past Med/Surg History Problem List (Updated 04/28/25 @ 06:22 by Beena Worrell DO) CHF (congestive heart failure) (Acute) Hyponatremia (Acute) Bilateral edema of lower extremity (Acute) Bradycardia (Acute) Transaminitis (Acute) Complicated urinary tract infection (Acute) (HFpEF) heart failure with preserved ejection fraction History of SIADH Chronic hyponatremia Recurrent urinary tract infection Transaminitis Hydronephrosis, right HSV (herpes simplex virus) infection Bacteremia due to methicillin resistant Staphylococcus aureus Hyponatremia Diarrhea (Acute) Weakness (Acute) COVID-19 (Acute) Complicated urinary tract infection (Acute) Sepsis (Acute) Chronic kidney disease, stage 3a Aortic insufficiency Mitral regurgitation Bilateral pleural effusion (Acute) Paroxysmal atrial fibrillation Anemia (Acute) Hypothyroidism (HFpEF) heart failure with preserved ejection fraction On amiodarone therapy Hypertension Medical History Acute UTI Complicated UTI (urinary tract infection) tx for UTI (finished abx 07/24/24) Acute UTI Renal colic Hydronephrosis Right ureteral stone High serum calcium 01/2024 Kidney stone Leukocytosis Failure of outpatient treatment Generalized weakness Macular degeneration Cat scratch 02/17/2024 Stage 3b chronic kidney disease (CKD) Pulmonary hypertension RSVP 40-50mmHg per 04/2024 ECHO Heart valve disease 04/2024 ECHO: mild-mod AR, mod MR, mild TR CHIQUITA (generalized anxiety disorder) PVD (peripheral vascular disease) Hyperlipidemia SIADH (syndrome of inappropriate ADH production) usually takes salt tab; has been off since 06/27/24 [facility] admission History of recent hospitalization [facility] 06/25-06/27/24: dx: acute UTI, R ureteric stone (stent placement 06/25/24) acute on chronic CHF, acute hypoxemic resp failure Urinary tract infection Infection of wound hematoma H/O- 2016 HTN (hypertension) On amiodarone therapy Hypothyroidism History of anemia no current issues Hx of pleural effusion (2021) seen most recently on abd/pelvis CT 06/25/24 Chronic kidney disease, stage 3a IIIa/IIIb per chart review Macular degeneration Kidney stones Hx of congestive heart failure Paroxysmal atrial fibrillation controlled w/ amiodarone - follows w/ Dr Canela Hx of recurrent urinary tract infection completed abx 07/24/24 Pulmonary edema seen most recently abd/pelvis CT 06/25/24 Elevated brain natriuretic peptide (BNP) level hx of Shortness of breath mild, w/ exertion Chronic heart failure with preserved ejection fraction 05/02/24 ECHO: Grade II DD c/w marked CHF; EF 55-60% Atypical chest pain hx - denies current issues GERD (gastroesophageal reflux disease) Pneumonia hx- no issues since ~2021 per pt Diverticulitis h/o > 2019 Surgical History History of cystoscopy cysto, R ureteral stent 06/25/24: MAC without issue Hx of tubal ligation History of umbilical hernia repair incarcerated - unknown age Hx of hernia repair right inguinal 2013 Hx of cholecystectomy Hx of hysterectomy Family History Mother Stroke Social History Smoking Status: Never smoker Second Hand Exposure: No; Do You Dip or Chew Tobacco: No; Hx Alcohol Use: No Hx Substance Use: No Preferred Language: Korean Communication Ability: Effective 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 Required: No Beliefs That Will Affect Care: None marital status: Current Living Situation: Alone Current Living Situation Comment: Has an aide who comes over current occupational status: retired How many Children do You have: 3 Feels Safe at Home: Yes Assistive Devices: Lift Chair and Walker Allergies Allergies Allergy/AdvReac Type Severity Reaction Status Date / Time Quinolones Allergy Intermediate HIVES Verified 01/18/25 14:53 dabigatran etexilate Allergy Unknown ON Verified 01/18/25 14:53 ISINGER MED LIST metronidazole AdvReac Intermediate GI SYMPTOMS Verified 01/18/25 14:53 sulfamethoxazole AdvReac Intermediate Diarrhea Verified 01/18/25 14:53 trimethoprim AdvReac Intermediate Diarrhea Verified 01/18/25 14:53 Home Meds Home Medications Medication Instructions Recorded Confirmed albuterol sulfate 90 mcg/actuation 2 puff inhalation Q4H PRN 04/28/25 04/28/25 aerosol inhaler Shortness Of Breath Or Wheezing amiodarone 200 mg tablet 200 mg PO DAILY 04/28/25 04/28/25 amlodipine 5 mg tablet 5 mg PO DAILY 04/28/25 04/28/25 ascorbic acid (vitamin C) 500 mg 500 mg PO DAILY 04/28/25 04/28/25 capsule aspirin 325 mg tablet 325 mg PO DAILY 04/28/25 04/28/25 buspirone 5 mg tablet 5 mg PO BID PRN Anxiety 04/28/25 04/28/25 calcium 600 mg (as 1 tab PO DAILY 04/28/25 04/28/25 carbonate)-vitamin D3 10 mcg (400 unit) tablet calcium polycarbophil 625 mg 625 mg PO DAILY 04/28/25 04/28/25 tablet (FiberCon) conjugated estrogens 0.625 mg/gram 1 applic vaginal UD 04/28/25 04/28/25 vaginal cream (Premarin) cyanocobalamin (vitamin B-12) 1,000 mcg PO Q2D 04/28/25 04/28/25 1,000 mcg capsule furosemide 40 mg tablet 40 mg PO BID 04/28/25 04/28/25 hydroxyzine HCl 10 mg tablet 10 mg PO Q6H PRN Anxiety 04/28/25 04/28/25 lactobacillus combination no.4 3 3,000 mmu cells PO DAILY 04/28/25 04/28/25 billion cell capsule (Probiotic) levothyroxine 75 mcg tablet 75 mcg PO DAILY 04/28/25 04/28/25 magnesium oxide 400 mg PO DAILY 04/28/25 04/28/25 methenamine hippurate 1 gram tablet 1 g PO BID 04/28/25 04/28/25 metoprolol succinate 50 mg 50 mg PO BID 04/28/25 04/28/25 tablet,extended release 24 hr multivitamin with minerals 1 tab PO DAILY 04/28/25 04/28/25 mv-mn-folic 200 mcg-vit K 15 2 cap PO DAILY 04/28/25 04/28/25 mcg-lutein 5 mg-zeaxanthin 1 mg capsule (PreserVision AREDS 2 Plus Multivit) peg 400-propylene glycol 0.4 %-0.3 1 drp ophthalmic (eye) QID 04/28/25 04/28/25 % eye drops (Systane Ultra) potassium chloride 10 mEq 20 meq PO DAILY 04/28/25 04/28/25 capsule,extended release Results & Data (ED) Vital Signs Vital Signs - 24 hr 04/28/25 03:17 04/28/25 05:36 04/28/25 05:46 Temperature 37 C Temperature Source Oral Pulse Rate 60 56 L Pulse Rate [Finger] 57 L Respiratory Rate 18 18 Respiratory Depth Normal Normal Blood Pressure 132/60 Blood Pressure [Left Arm] 135/59 L Blood Pressure Mean 84 Blood Pressure Mean [Left Arm] 84 Pulse Oximetry 92 57 L Oxygen Delivery Method Room Air Oxygen Flow Rate Sepsis Recent Fever Within 48 Hours No Sepsis New/Unexplained Change in Mental Status No Sepsis Action Taken by Nursing No Action Required 04/28/25 05:49 Temperature Temperature Source Pulse Rate Pulse Rate [Finger] Respiratory Rate Respiratory Depth Blood Pressure Blood Pressure [Left Arm] Blood Pressure Mean Blood Pressure Mean [Left Arm] Pulse Oximetry 95 Oxygen Delivery Method Nasal Cannula Oxygen Flow Rate 1 Sepsis Recent Fever Within 48 Hours Sepsis New/Unexplained Change in Mental Status Sepsis Action Taken by Nursing Laboratory Data 04/28/25 03:25 04/28/25 03:25 Lab Results 04/28/25 Range/Units 03:25 WBC 11.47 H (4.8-10.8) K/ul RBC 3.65 L (4.20-5.40) M/uL Hgb 11.9 L (12.0-16.0) g/dL Hct 34.3 L (37.0-47.0) % MCV 94.0 (80.0-100.0) fL MCH 32.6 (25.0-34.0) pg MCHC 34.7 (32.0-36.0) g/dL RDW Std Deviation 48.5 H (36.4-46.3) fL RDW Coeff of Ursula 14.2 (11.5-14.5) % Plt Count 221 (130-400) K/uL MPV 10.0 (9.4-12.4) fL Immature Gran % (Auto) 0.6 % Neut % (Auto) 71.2 % Lymph % (Auto) 13.5 % Beaver % (Auto) 13.7 % Eos % (Auto) 0.6 % Baso % (Auto) 0.4 % Neut # (Auto) 8.16 H (1.40-6.50) K/uL Lymph # (Auto) 1.55 (1.20-3.40) K/uL Beaver # (Auto) 1.57 H (0.11-0.59) K/uL Eos # (Auto) 0.07 (0.00-0.50) K/uL Baso # (Auto) 0.05 (0.00-0.20) K/uL Immature Gran # (Auto) 0.07 (0.01-0.20) K/uL PT 10.0 (9.0-12.0) Seconds INR 0.9 (0.9-1.1) Sodium 124 L (136-145) mmol/L Potassium 3.9 (3.5-5.1) mmol/L Chloride 90 L (98-107) mmol/L Carbon Dioxide 27 (21-32) mmol/L Anion Gap 7 (3-11) BUN 20 (6-23) mg/dl Creatinine 0.88 (0.6-1.2) mg/dl Est Cr Clr Drug Dosing 37.0 ml/min eGFR 63.57 BUN/Creatinine Ratio 22.7 H (10-20) Glucose 116 H (70-99(Fasting)) mg/dl Calcium 10.1 (8.6-10.3) mg/dl Magnesium 2.2 (1.7-2.4) mg/dl Total Bilirubin 1.0 (0.2-1.0) mg/dl AST 20 (13-39) U/L ALT 14 (7-52) U/L Alkaline Phosphatase 100 (34-104) U/L Troponin I High Sens 6.9 (0-14) pg/ml B-Natriuretic Peptide 572 H (0-100) pg/ml Total Protein 8.4 H (6.0-8.3) gm/dl Albumin 4.2 (3.4-5.0) gm/dl Globulin 4.2 H (2.5-4.0) gm/dl Albumin/Globulin Ratio 1.0 (0.9-2) Administered Medications Sodium Chloride (Nss) 500 mls @ 80 mls/hr IV .[id number] [facility] Stop: 04/28/25 10:59 Last Admin: 04/28/25 05:17 Dose: 80 mls/hr Documented By: tcm Discharge Plan Visit Data Chief Complaint: Swelling/Edema to Extremity Stated Complaint: LLE SWELLING SINCE THIS AM - FEELS TIGHT ED Provider: Beena Worrell Discharge Problem: Bilateral edema of lower extremity, Hyponatremia, CHF (congestive heart failure) Patient Disposition: Being Evaluated by Hospitalist Condition: Fair Forms Stand Alone Forms: My [facility] [employer] Prescriptions Prescriptions: No Action furosemide 40 mg tablet 40 mg PO BID buspirone 5 mg tablet 5 mg PO BID PRN (Reason: Anxiety) potassium chloride 10 mEq capsule, extended release 20 meq PO DAILY amiodarone 200 mg tablet 200 mg PO DAILY metoprolol succinate 50 mg tablet extended release 24 hr 50 mg PO BID amlodipine 5 mg tablet 5 mg PO DAILY levothyroxine 75 mcg tablet 75 mcg PO DAILY methenamine hippurate 1 gram tablet 1 g PO BID Premarin 0.625 mg/gram cream 1 applic vaginal UD Rx Instructions: daily for 2weeks on and 2 weeks off albuterol sulfate 90 mcg/actuation HFA aerosol inhaler 2 puff INHALATION Q4H PRN (Reason: Shortness Of Breath Or Wheezing) hydroxyzine HCl 10 mg tablet 10 mg PO Q6H PRN (Reason: Anxiety) aspirin 325 mg Tablet 325 mg PO DAILY calcium polycarbophil [FiberCon] 625 mg Tablet 625 mg PO DAILY multivitamin with minerals Tablet 1 tab PO DAILY Systane Ultra 0.4-0.3 % Drops 1 drp OPHTHALMIC (EYE) QID calcium carbonate-vitamin D3 600 mg-10 mcg (400 unit) Tablet 1 tab PO DAILY magnesium oxide 400 mg magnesium Capsule 400 mg PO DAILY Probiotic 3 billion cell Capsule 3,000 mmu cells PO DAILY Rx Instructions: administer with a meal ascorbic acid (vitamin C) 500 mg Capsule 500 mg PO DAILY cyanocobalamin (vitamin B-12) 1,000 mcg Capsule 1,000 mcg PO Q2D PreserVision AREDS 2 Plus MV 200 mcg-15 mcg- 5 mg-1 mg Capsule 2 cap PO DAILY Referrals Referrals: Kodi Lizarraga MD [Primary Care Provider] -
[2025-04-28 03:38] LABS: Hematocrit (blood only) 34.3 % (37.0-47.0); Hemoglobin 11.9 g/dL (12.0-16.0); Immature Granulocytes # (auto) 0.07 K/uL (0.01-0.20); Immature Granulocytes % (auto) 0.6 %; Mean Corpuscular Hemoglobin 32.6 pg (25.0-34.0); Mean Corpuscular Volume 94.0 fL (80.0-100.0); Platelet Count 221 K/uL (130-400); RDW Standard Deviation 48.5 fL (36.4-46.3); Red Blood Count 3.65 M/uL (4.20-5.40); White Blood Count 11.47 K/ul (4.8-10.8)
[2025-04-28 03:56] LABS: Alanine Aminotransferase 14.0 U/L (7-52); Albumin Globulin Ratio 1.0 (0.9-2); Albumin Level 4.2 gm/dl (3.4-5.0); Alkaline Phosphatase 100.0 U/L (34-104); Anion Gap 7.0 (3-11); Bilirubin,Total 1.0 mg/dl (0.2-1.0); Blood Urea Nitrogen 20.0 mg/dl (6-23); Calcium 10.1 mg/dl (8.6-10.3); Carbon Dioxide 27.0 mmol/L (21-32); Chloride 90.0 mmol/L (98-107); Creatinine Clr Calc Pharmacy 37.0 ml/min; Globulin 4.2 gm/dl (2.5-4.0); Glucose 116.0 mg/dl (70-99(Fasting)); Magnesium 2.2 mg/dl (1.7-2.4); Potassium 3.9 mmol/L (3.5-5.1); Sodium 124.0 mmol/L (136-145); Total Protein 8.4 gm/dl (6.0-8.3)
[2025-04-28 04:13] LABS: INR 0.9 (0.9-1.1); Prothrombin Time 10.0 Seconds (9.0-12.0)
[2025-04-28] MEDS: SODIUM CHLORIDE 0.9% 500 ML IV SCH (05:17)
--- NOTE | 2025-04-28 06:30 | History & Physical Report ---
Date of Service April 28, 2025 Assessment & Plan (1) CHF (congestive heart failure): Plan: 85-year-old female with past medical history significant for SIADH, hypothyroidism, hyperlipidemia, peripheral vascular disease, chronic heart failure with preserved ejection fraction, atrial fibrillation, hypertension, CKD stage IIIb, venous insufficiency, hepatic cirrhosis, GERD, macular degeneration right eye, history of aspiration pneumonitis, generalized anxiety disorder, transaminitis who lives alone at home and ambulates with a walker comes because of worsening lower extremity edema. Patient states since yesterday morning lower extremity getting more swollen left greater than right. Denies any shortness of breath. Denies any chest pain. Has some abdominal discomfort. Normal bowel and bladder movements. Afebrile. Has some cough. Denies any head ache. Vision is okay. No runny nose or sore throat. Somewhat hard of hearing. Afebrile. Hemodynamics are okay.Patient lives alone but gets caregiver 4 times a week. Patient states family is in town.. Acute on chronic diastolic CHF Worsening lower extremity edema Will follow chest x-ray At home on Lasix 40 mg twice daily Will place on IV Lasix 40 twice daily Will follow echo Daily I's and O's Will follow lower extremity Dopplers Consider cardiology consult Monitor on telemetry Hyponatremia Sodium 124 History of SIADH Sodium generally in low 130s Will follow urine sodium, urine osmolality, serum osmolality Slow correction Getting IV Lasix BMP every 6 hours Nephrology consult for further recommendations Hypothyroidism On Synthyroid Peripheral vascular disease On aspirin Hypertension On amlodipine, diuretics, metoprolol succinate We will monitor History of A-fib On amiodarone, metoprolol succinate and full dose aspirin Not on anticoagulation because of history of falls and prior GI bleeding General anxiety disorder On BuSpar as needed CKD stage IIIb Creatinine 0.8 Will follow labs DVT prophylaxis Heparin subcu Disposition Telemetry CODE STATUS DNR/DNI as per my discussion with the patient History of Present Illness Chief Complaint: Lower extremity edema Primary Care Provider: Kodi Lizarraga MD 85-year-old female with past medical history significant for SIADH, hypothyroidism, hyperlipidemia, peripheral vascular disease, chronic heart failure with preserved ejection fraction, atrial fibrillation, hypertension, CKD stage IIIb, venous insufficiency, hepatic cirrhosis, GERD, macular degeneration right eye, history of aspiration pneumonitis, generalized anxiety disorder, transaminitis who lives alone at home and ambulates with a walker comes because of worsening lower extremity edema. Patient states since yesterday morning lower extremity getting more swollen left greater than right. Denies any shortness of breath. Denies any chest pain. Has some abdominal discomfort. Normal bowel and bladder movements. Afebrile. Has some cough. Denies any headache. Vision is okay. No runny nose or sore throat. Somewhat hard of hearing. Afebrile. Hemodynamics are okay.Patient lives alone but gets caregiver 4 times a week. Patient states family is in town.. Past medical history. As mentioned above. Past surgical history. Breast lesion excision. Laparoscopic cholecystectomy. Inguinal hernia repair. Total abdominal hysterectomy with removal of tubes. Umbilical hernia repair. Social history. . No smoking. No alcohol use. No drug use. Family history. No family history on file. Allergies Allergy/AdvReac Type Severity Reaction Status Date / Time Quinolones Allergy Intermediate HIVES Verified 01/18/25 14:53 dabigatran etexilate Allergy Unknown ON Verified 01/18/25 14:53 [facility] MED LIST metronidazole AdvReac Intermediate GI SYMPTOMS Verified 01/18/25 14:53 sulfamethoxazole AdvReac Intermediate Diarrhea Verified 01/18/25 14:53 trimethoprim AdvReac Intermediate Diarrhea Verified 01/18/25 14:53 Home Medications Medication Instructions Recorded Confirmed Type albuterol sulfate 90 mcg/actuation 2 puff inhalation Q4H PRN 04/28/25 04/28/25 History aerosol inhaler Shortness Of Breath Or Wheezing amiodarone 200 mg tablet 200 mg PO DAILY 04/28/25 04/28/25 History amlodipine 5 mg tablet 5 mg PO DAILY 04/28/25 04/28/25 History ascorbic acid (vitamin C) 500 mg 500 mg PO DAILY 04/28/25 04/28/25 History capsule aspirin 325 mg tablet 325 mg PO DAILY 04/28/25 04/28/25 History buspirone 5 mg tablet 5 mg PO BID PRN Anxiety 04/28/25 04/28/25 History calcium 600 mg (as 1 tab PO DAILY 04/28/25 04/28/25 History carbonate)-vitamin D3 10 mcg (400 unit) tablet calcium polycarbophil 625 mg 625 mg PO DAILY 04/28/25 04/28/25 History tablet (FiberCon) conjugated estrogens 0.625 mg/gram 1 applic vaginal UD 04/28/25 04/28/25 History vaginal cream (Premarin) cyanocobalamin (vitamin B-12) 1,000 mcg PO Q2D 04/28/25 04/28/25 History 1,000 mcg capsule furosemide 40 mg tablet 40 mg PO BID 04/28/25 04/28/25 History hydroxyzine HCl 10 mg tablet 10 mg PO Q6H PRN Anxiety 04/28/25 04/28/25 History lactobacillus combination no.4 3 3,000 mmu cells PO DAILY 04/28/25 04/28/25 History billion cell capsule (Probiotic) levothyroxine 75 mcg tablet 75 mcg PO DAILY 04/28/25 04/28/25 History magnesium oxide 400 mg PO DAILY 04/28/25 04/28/25 History methenamine hippurate 1 gram tablet 1 g PO BID 04/28/25 04/28/25 History metoprolol succinate 50 mg 50 mg PO BID 04/28/25 04/28/25 History tablet,extended release 24 hr multivitamin with minerals 1 tab PO DAILY 04/28/25 04/28/25 History mv-mn-folic 200 mcg-vit K 15 2 cap PO DAILY 04/28/25 04/28/25 History mcg-lutein 5 mg-zeaxanthin 1 mg capsule (PreserVision AREDS 2 Plus Multivit) peg 400-propylene glycol 0.4 %-0.3 1 drp ophthalmic (eye) QID 04/28/25 04/28/25 History % eye drops (Systane Ultra) potassium chloride 10 mEq 20 meq PO DAILY 04/28/25 04/28/25 History capsule,extended release Past Med/Surg History Problem List (Updated 04/28/25 @ 06:22 by Beena Worrell DO) CHF (congestive heart failure) (Acute) Hyponatremia (Acute) Bilateral edema of lower extremity (Acute) Bradycardia (Acute) Transaminitis (Acute) Complicated urinary tract infection (Acute) (HFpEF) heart failure with preserved ejection fraction History of SIADH Chronic hyponatremia Recurrent urinary tract infection Transaminitis Hydronephrosis, right HSV (herpes simplex virus) infection Bacteremia due to methicillin resistant Staphylococcus aureus Hyponatremia Diarrhea (Acute) Weakness (Acute) COVID-19 (Acute) Complicated urinary tract infection (Acute) Sepsis (Acute) Chronic kidney disease, stage 3a Aortic insufficiency Mitral regurgitation Bilateral pleural effusion (Acute) Paroxysmal atrial fibrillation Anemia (Acute) Hypothyroidism (HFpEF) heart failure with preserved ejection fraction On amiodarone therapy Hypertension Medical History Acute UTI Complicated UTI (urinary tract infection) tx for UTI (finished abx 07/24/24) Acute UTI Renal colic Hydronephrosis Right ureteral stone High serum calcium 01/2024 Kidney stone Leukocytosis Failure of outpatient treatment Generalized weakness Macular degeneration Cat scratch 02/17/2024 Stage 3b chronic kidney disease (CKD) Pulmonary hypertension RSVP 40-50mmHg per 04/2024 ECHO Heart valve disease 04/2024 ECHO: mild-mod AR, mod MR, mild TR CHIQUITA (generalized anxiety disorder) PVD (peripheral vascular disease) Hyperlipidemia SIADH (syndrome of inappropriate ADH production) usually takes salt tab; has been off since 06/27/24 [facility] admission History of recent hospitalization [facility] 06/25-06/27/24: dx: acute UTI, R ureteric stone (stent placement 06/25/24) acute on chronic CHF, acute hypoxemic resp failure Urinary tract infection Infection of wound hematoma H/O- 2016 HTN (hypertension) On amiodarone therapy Hypothyroidism History of anemia no current issues Hx of pleural effusion (2021) seen most recently on abd/pelvis CT 06/25/24 Chronic kidney disease, stage 3a IIIa/IIIb per chart review Macular degeneration Kidney stones Hx of congestive heart failure Paroxysmal atrial fibrillation controlled w/ amiodarone - follows w/ Dr Canela Hx of recurrent urinary tract infection completed abx 07/24/24 Pulmonary edema seen most recently abd/pelvis CT 06/25/24 Elevated brain natriuretic peptide (BNP) level hx of Shortness of breath mild, w/ exertion Chronic heart failure with preserved ejection fraction 05/02/24 ECHO: Grade II DD c/w marked CHF; EF 55-60% Atypical chest pain hx - denies current issues GERD (gastroesophageal reflux disease) Pneumonia hx- no issues since ~2021 per pt Diverticulitis h/o > 2019 Surgical History History of cystoscopy cysto, R ureteral stent 06/25/24: MAC without issue Hx of tubal ligation History of umbilical hernia repair incarcerated - unknown age Hx of hernia repair right inguinal 2012 Hx of cholecystectomy Hx of hysterectomy Family History Mother Stroke Social History Smoking Status: Never smoker Second Hand Exposure: No; Do You Dip or Chew Tobacco: No; Hx Alcohol Use: No Hx Substance Use: No Preferred Language: [place] Communication Ability: Effective 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 Head- atraumatic Eyes- PERRL. ENT- oropharynx clear Neck- supple, no JVD. Lungs- clear to auscultation no wheezing or crackles Heart- regular rhythm; no murmur, no gallop. Abdomen- normal bowel sounds, soft, nontender, no distension Extremities- b/l lower extremity +2 edema present, no drainage seen Neuro- alert, oriented hard of hearing, PERRL no facial palsy; no dysarthria; moves extremities Results & Data Results & Data Vital Signs (Past 12 Hours) Vital Signs Temp Pulse Pulse Resp BP BP Pulse Ox 04/28/25 05:49 95 04/28/25 05:46 56 L 04/28/25 05:36 57 L 18 135/59 L 57 L 04/28/25 03:17 37 C 60 18 132/60 92 O2 Del Method O2 Flow Rate 04/28/25 05:49 Nasal Cannula 1 04/28/25 05:46 04/28/25 05:36 Room Air 04/28/25 03:17 Diagnostic Findings Laboratory Results WBC 11.47 K/ul (4.8-10.8) H 04/28/25 03:25 RBC 3.65 M/uL (4.20-5.40) L 04/28/25 03:25 Hgb 11.9 g/dL (12.0-16.0) L 04/28/25 03:25 Hct 34.3 % (37.0-47.0) L 04/28/25 03:25 MCV 94.0 fL (80.0-100.0) 04/28/25 03:25 MCH 32.6 pg (25.0-34.0) 04/28/25 03:25 MCHC 34.7 g/dL (32.0-36.0) 04/28/25 03:25 RDW Std Deviation 48.5 fL (36.4-46.3) H 04/28/25 03:25 RDW Coeff of Ursula 14.2 % (11.5-14.5) 04/28/25 03:25 Plt Count 221 K/uL (130-400) 04/28/25 03:25 MPV 10.0 fL (9.4-12.4) 04/28/25 03:25 Immature Gran % (Auto) 0.6 % 04/28/25 03:25 Neut % (Auto) 71.2 % 04/28/25 03:25 Lymph % (Auto) 13.5 % 04/28/25 03:25 [place] % (Auto) 13.7 % 04/28/25 03:25 Eos % (Auto) 0.6 % 04/28/25 03:25 Baso % (Auto) 0.4 % 04/28/25 03:25 Neut # (Auto) 8.16 K/uL (1.40-6.50) H 04/28/25 03:25 Lymph # (Auto) 1.55 K/uL (1.20-3.40) 04/28/25 03:25 [place] # (Auto) 1.57 K/uL (0.11-0.59) H 04/28/25 03:25 Eos # (Auto) 0.07 K/uL (0.00-0.50) 04/28/25 03:25 Baso # (Auto) 0.05 K/uL (0.00-0.20) 04/28/25 03:25 Immature Gran # (Auto) 0.07 K/uL (0.01-0.20) 04/28/25 03:25 PT 10.0 Seconds (9.0-12.0) 04/28/25 03:25 INR 0.9 (0.9-1.1) 04/28/25 03:25 Sodium 124 mmol/L (136-145) L 04/28/25 03:25 Potassium 3.9 mmol/L (3.5-5.1) 04/28/25 03:25 Chloride 90 mmol/L (98-107) L 04/28/25 03:25 Carbon Dioxide 27 mmol/L (21-32) 04/28/25 03:25 Anion Gap 7 (3-11) 04/28/25 03:25 BUN 20 mg/dl (6-23) 04/28/25 03:25 Creatinine 0.88 mg/dl (0.6-1.2) 04/28/25 03:25 Est Cr Clr Drug Dosing 37.0 ml/min 04/28/25 03:25 eGFR 63.57 04/28/25 03:25 BUN/Creatinine Ratio 22.7 (10-20) H 04/28/25 03:25 Glucose 116 mg/dl (70-99(Fasting)) H 04/28/25 03:25 Calcium 10.1 mg/dl (8.6-10.3) 04/28/25 03:25 Magnesium 2.2 mg/dl (1.7-2.4) 04/28/25 03:25 Total Bilirubin 1.0 mg/dl (0.2-1.0) 04/28/25 03:25 AST 20 U/L (13-39) 04/28/25 03:25 ALT 14 U/L (7-52) 04/28/25 03:25 Alkaline Phosphatase 100 U/L (34-104) 04/28/25 03:25 Troponin I High Sens 6.9 pg/ml (0-14) 04/28/25 03:25 B-Natriuretic Peptide 572 pg/ml (0-100) H 04/28/25 03:25 Total Protein 8.4 gm/dl (6.0-8.3) H 04/28/25 03:25 Albumin 4.2 gm/dl (3.4-5.0) 04/28/25 03:25 Globulin 4.2 gm/dl (2.5-4.0) H 04/28/25 03:25 Albumin/Globulin Ratio 1.0 (0.9-2) 04/28/25 03:25 ECG Additional Comments: ECG. Sinus bradycardia with sinus arrhythmia first-degree AV block rate of 55. Nonspecific intraventricular conduction block. QTc 510. Code Status & VTE Plan VTE Prophylaxis Plan VTE Prophylaxis will be ordered: Yes
[2025-04-28] MEDS ORDERED: NITROGLYCERIN SL 0.4 MG/TAB TAB SL PRN (07:16)
[2025-04-28] MEDS ORDERED: POLYETHYLENE (MIRALAX) 17 GM PACK PO PRN (07:16)
[2025-04-28] MEDS ORDERED: busPIRone 5 MG TAB PO PRN (07:16)
[2025-04-28] MEDS ORDERED: ALBUTEROL HFA 8 GM INHALER INH PRN (07:16)
[2025-04-28] MEDS ORDERED: ACETAMINOPHEN 325 MG TAB PO PRN (07:16)
[2025-04-28] MEDS ORDERED: PREMARIN VAG CRM 14 APPLN/30 GM TUBE PV SCH (07:16)
[2025-04-28] MEDS ORDERED: NON-FORMULARY MEDICATION (Mv-Min-Fa-Vit K-Lutein-Zeaxant [Preservision Areds 2 Plus Mv] 20 PO SCH (09:00)
[2025-04-28] MEDS ORDERED: PEG PROPYLENE GLYCOL OP SCH (09:00)
--- NOTE | 2025-04-28 09:08 | Ultrasound Report ---
Technique: Venous ultrasound evaluation was performed utilizing grayscale, color Doppler and wave form evaluation. Images were also obtained with and without compression Findings: The bilateral common femoral, superficial femoral, popliteal, and visualized calf veins demonstrate normal anechoic lumens with full compressibility. Normal flow is seen on color Doppler images. Expected waveforms were produced with augmentation maneuvers There is subcutaneous edema in the bilateral lower legs Impression: No evidence of deep venous thrombosis Electronically signed by Sundar Gale 04-28-2025 09:08 AM
[2025-04-28] MEDS: AMIODARONE 200 MG TAB PO SCH (09:15)
[2025-04-28] MEDS: CYANOCOBALAMIN (B-12) 500 MCG TABLET PO SCH (09:15)
[2025-04-28] MEDS: LEVOTHYROXINE SODIUM 75 MCG TABLET PO SCH (09:15)
[2025-04-28] MEDS: ASPIRIN 325 MG ECTAB PO SCH (09:16)
[2025-04-28] MEDS: CALCIUM 600MG + VIT D 400 IU TAB PO SCH (09:16)
[2025-04-28] MEDS: CALCIUM POLYCARBOPHIL 625MG TAB PO SCH (09:17)
[2025-04-28] MEDS: ADVANCED PROBIOTIC 625 MG CAPSULE PO SCH (09:17)
[2025-04-28] MEDS: FUROSEMIDE 40 MG/4 ML VIAL IV SCH ×2 (09:17→14:35)
[2025-04-28] MEDS: METHENAMINE HIPPURATE 1 GM TAB PO SCH (09:17)
[2025-04-28] MEDS: MULTIVITAMIN TAB PO SCH (09:18)
[2025-04-28] MEDS: POTASSIUM CHLORIDE 10 MEQ TABCR PO SCH (09:18)
[2025-04-28] MEDS: MAGNESIUM OXIDE 400 MG TAB PO SCH (09:19)
[2025-04-28] MEDS: ASCORBIC ACID 500 MG TAB PO SCH (09:19)
--- NOTE | 2025-04-28 09:44 | Electrocardiogram Report ---
Test Reason : Blood Pressure : */* mmHG Vent. Rate : 55 BPM Atrial Rate : 55 BPM P-R Int : 360 ms QRS Dur : 148 ms QT Int : 534 ms P-R-T Axes : 18 157 14 degrees QTcB Int : 510 ms Sinus bradycardia with sinus arrhythmia with 1st degree A-V block Non-specific intra-ventricular conduction block Minimal voltage criteria for LVH, may be normal variant Possible Lateral infarct (cited on or before 18-Jan-2025) Inferior infarct , age undetermined Abnormal ECG When compared with ECG of 18-Jan-2025 13:47, Inferior infarct is now Present Questionable change in initial forces of Lateral leads Confirmed by Julio César Mendez ([id number]) on 04/28/2025 9:44:22 AM Referred By: REFERRED SELF Confirmed By: Julio César Mendez
--- NOTE | 2025-04-28 10:10 | XRay Report ---
Technique: A frontal view of the chest was obtained Comparison is made to the prior examination dated 12/13/2024 Findings: There are increased diffuse interstitial opacities, which may be due to a combination of pulmonary edema and pneumonia. The heart size is within normal limits. No definite pneumothorax is seen. There is small bilateral pleural effusions No fracture is noted. No foreign body is seen Impression: 1. Worsened diffuse pulmonary opacities, which may be due to a combination of pulmonary edema and pneumonia 2. Small bilateral pleural effusions ACT 112: Positive. There are findings on this exam that require communication between the performing entity and the patient following Patient Test Result Information Act ([place] ACT 112) guidelines. Electronically signed by Sundar Gale 04-28-2025 10:09 AM
[2025-04-28 10:18] LABS: Anion Gap 7.0 (3-11); Blood Urea Nitrogen 19.0 mg/dl (6-23); Calcium 9.6 mg/dl (8.6-10.3); Carbon Dioxide 27.0 mmol/L (21-32); Chloride 92.0 mmol/L (98-107); Creatinine Clr Calc Pharmacy 42.3 ml/min; Glucose 106.0 mg/dl (70-99(Fasting)); Potassium 4.2 mmol/L (3.5-5.1); Sodium 126.0 mmol/L (136-145)
[2025-04-28] MEDS: METOPROLOL SUCC 50MG EXT REL TAB PO SCH (10:46)
[2025-04-28] MEDS: HEPARIN SOD 5,000 UNIT/0.5 ML VIAL SQ SCH (14:34)
--- NOTE | 2025-04-28 15:09 | Communication Note ---
Date of Service: April 28, 2025 The patient was seen and examined in telemetry unit. She was admitted with increasing leg swelling without any other significant symptoms noted to have fluid overload. She was also noted to have hyponatremia and no evidence of DVT on the left lower extremity. A full progress note will be done tomorrow. Dr Deborah Moses
--- NOTE | 2025-04-28 15:19 | Nephrology Consultation ---
Date of Consultation April 28, 2025 Assessment & Plan (1) Hyponatremia: have to call this as Hypervolemic Hyponatremia from CHF. She may also have a low Solute diet. Given CHF as the main trigger cannot really put much emphasis on the urine Osm na did get better slightly with iv lasix. So will continue same. In fact looking at CXR will raise the dose to 40 iv q8hr. Check BMP every 12 hrs now. (2) (HFpEF) heart failure with preserved ejection fraction: Does have e/o CHF and Pl effuion and also edema. needs more lasix raise to 40 iv q8hr. Will also raise home lasix dose at discharge. Plan time spent 63 mins History of Present Illness Reason for Consultation: Hyponatremia and CHF Attending Physician: Jimbo Moses MD History of Present Illness 85/F with -year-old female with past medical history significant for Hyponatremia, hypothyroidism, hyperlipidemia, peripheral vascular disease, chronic heart failure with preserved ejection fraction, atrial fibrillation, hypertension, CKD stage IIIb, venous insufficiency, hepatic cirrhosis, GERD, macular degeneration right eye, history of aspiration pneumonitis, generalized anxiety disorder, transaminitis who lives alone and ambulates with a walker comes to hospital because of worsening lower extremity edema. Patient states lower extremity getting more swollen left greater than right. Denies any shortness of breath. Denies any chest pain. Has some abdominal discomfort. Normal bowel and bladder movements. Afebrile. Has some cough. Denies any headache. Vision is okay. No runny nose or sore throat. Somewhat hard of hearing. Afebrile. Hemodynamics are okay. Patient lives alone but gets caregiver 4 times a week. Patient states family is in town. CXR showed CHF/Pl effusion. has got lasix and with that making lot of urine and edema is less. ROS--see HPi. 12 systems otherwise negative Physical Exam Physical Exam: General- Not in acute distress. very coherent and sharp. Neck- supple, no JVD. Lungs- b/l diminished and rhonchi Heart- regular rhythm; no murmur Abdomen- soft, nontender, no distension Extremities- b/l lower extremity +1 edema in left and trace in rt. Neuro- alert, oriented Allergies Allergy/AdvReac Type Severity Reaction Status Date / Time Quinolones Allergy Intermediate HIVES Verified 01/18/25 14:53 dabigatran etexilate Allergy Unknown ON Verified 01/18/25 14:53 [employer] MED LIST metronidazole AdvReac Intermediate GI SYMPTOMS Verified 01/18/25 14:53 sulfamethoxazole AdvReac Intermediate Diarrhea Verified 01/18/25 14:53 trimethoprim AdvReac Intermediate Diarrhea Verified 01/18/25 14:53 Home Medications Medication Instructions Recorded Confirmed Type albuterol sulfate 90 mcg/actuation 2 puff inhalation Q4H PRN 04/28/25 04/28/25 History aerosol inhaler Shortness Of Breath Or Wheezing amiodarone 200 mg tablet 200 mg PO DAILY 04/28/25 04/28/25 History amlodipine 5 mg tablet 5 mg PO DAILY 04/28/25 04/28/25 History ascorbic acid (vitamin C) 500 mg 500 mg PO DAILY 04/28/25 04/28/25 History capsule aspirin 325 mg tablet 325 mg PO DAILY 04/28/25 04/28/25 History buspirone 5 mg tablet 5 mg PO BID PRN Anxiety 04/28/25 04/28/25 History calcium 600 mg (as 1 tab PO DAILY 04/28/25 04/28/25 History carbonate)-vitamin D3 10 mcg (400 unit) tablet calcium polycarbophil 625 mg 625 mg PO DAILY 04/28/25 04/28/25 History tablet (FiberCon) conjugated estrogens 0.625 mg/gram 1 applic vaginal UD 04/28/25 04/28/25 History vaginal cream (Premarin) cyanocobalamin (vitamin B-12) 1,000 mcg PO Q2D 04/28/25 04/28/25 History 1,000 mcg capsule furosemide 40 mg tablet 40 mg PO BID 04/28/25 04/28/25 History hydroxyzine HCl 10 mg tablet 10 mg PO Q6H PRN Anxiety 04/28/25 04/28/25 History lactobacillus combination no.4 3 3,000 mmu cells PO DAILY 04/28/25 04/28/25 History billion cell capsule (Probiotic) levothyroxine 75 mcg tablet 75 mcg PO DAILY 04/28/25 04/28/25 History magnesium oxide 400 mg PO DAILY 04/28/25 04/28/25 History methenamine hippurate 1 gram tablet 1 g PO BID 04/28/25 04/28/25 History metoprolol succinate 50 mg 50 mg PO BID 04/28/25 04/28/25 History tablet,extended release 24 hr multivitamin with minerals 1 tab PO DAILY 04/28/25 04/28/25 History mv-mn-folic 200 mcg-vit K 15 2 cap PO DAILY 04/28/25 04/28/25 History mcg-lutein 5 mg-zeaxanthin 1 mg capsule (PreserVision AREDS 2 Plus Multivit) peg 400-propylene glycol 0.4 %-0.3 1 drp ophthalmic (eye) QID 04/28/25 04/28/25 History % eye drops (Systane Ultra) potassium chloride 10 mEq 20 meq PO DAILY 04/28/25 04/28/25 History capsule,extended release Patient History Medical History Acute UTI Complicated UTI (urinary tract infection) tx for UTI (finished abx 07/24/24) Acute UTI Renal colic Hydronephrosis Right ureteral stone High serum calcium 01/2024 Kidney stone Leukocytosis Failure of outpatient treatment Generalized weakness Macular degeneration Cat scratch 02/17/2024 Stage 3b chronic kidney disease (CKD) Pulmonary hypertension RSVP 40-50mmHg per 04/2024 ECHO Heart valve disease 04/2024 ECHO: mild-mod AR, mod MR, mild TR CHIQUITA (generalized anxiety disorder) PVD (peripheral vascular disease) Hyperlipidemia SIADH (syndrome of inappropriate ADH production) usually takes salt tab; has been off since 06/27/24 [facility] admission History of recent hospitalization [facility] 06/25-06/27/24: dx: acute UTI, R ureteric stone (stent placement 06/25/24) acute on chronic CHF, acute hypoxemic resp failure Urinary tract infection Infection of wound hematoma H/O- 2016 HTN (hypertension) On amiodarone therapy Hypothyroidism History of anemia no current issues Hx of pleural effusion (2021) seen most recently on abd/pelvis CT 06/25/24 Chronic kidney disease, stage 3a IIIa/IIIb per chart review Macular degeneration Kidney stones Hx of congestive heart failure Paroxysmal atrial fibrillation controlled w/ amiodarone - follows w/ Dr Canela Hx of recurrent urinary tract infection completed abx 07/24/24 Pulmonary edema seen most recently abd/pelvis CT 06/25/24 Elevated brain natriuretic peptide (BNP) level hx of Shortness of breath mild, w/ exertion Chronic heart failure with preserved ejection fraction 05/02/24 ECHO: Grade II DD c/w marked CHF; EF 55-60% Atypical chest pain hx - denies current issues GERD (gastroesophageal reflux disease) Pneumonia hx- no issues since ~2021 per pt Diverticulitis h/o > 2019 Surgical History History of cystoscopy cysto, R ureteral stent 06/25/24: MAC without issue Hx of tubal ligation History of umbilical hernia repair incarcerated - unknown age Hx of hernia repair right inguinal 2013 Hx of cholecystectomy Hx of hysterectomy Family History Mother Stroke Social History Smoking Status: Never smoker Second Hand Exposure: No; Do You Dip or Chew Tobacco: No; Hx Alcohol Use: No Hx Substance Use: No Preferred Language: Persian Communication Ability: Effective Planogrammer Required: No Beliefs That Will Affect Care: None marital status: Current Living Situation: Alone Current Living Situation Comment: Has an aide who comes over current occupational status: retired How many Children do You have: 3 Feels Safe at Home: Yes Assistive Devices: Denture - Upper, Denture - Lower, Glasses and Walker Results & Data Vital Signs (Past 12 Hours) Vital Signs Temp Pulse Pulse Resp BP Pulse Ox Pulse Ox 04/28/25 14:00 36.5 C 60 25 H 156/66 H 95 04/28/25 09:18 04/28/25 09:12 36.4 C L 57 L 24 124/62 93 04/28/25 07:24 53 L 04/28/25 07:16 94 04/28/25 07:00 58 L 22 135/59 L 90 04/28/25 05:49 95 04/28/25 05:46 56 L 04/28/25 05:36 57 L 18 135/59 L 57 L O2 Del Method O2 Del Method O2 Flow Rate O2 Flow Rate 04/28/25 14:00 Nasal Cannula 5 04/28/25 09:18 Nasal Cannula 4 04/28/25 09:12 Nasal Cannula 4 04/28/25 07:24 04/28/25 07:16 Nasal Cannula 4 04/28/25 07:00 Nasal Cannula 2 04/28/25 05:49 Nasal Cannula 1 04/28/25 05:46 04/28/25 05:36 Room Air Laboratory Results CBC and renal panel Diagnostic Findings CXR--CHF Duplex no DVT (2) (HFpEF) heart failure with preserved ejection fraction Heart failure chronicity: unspecified Qualified Code(s): I50.30 - Unspecified diastolic (congestive) heart failure
--- NOTE | 2025-04-28 15:47 | XCELERA ---
[id number]
[2025-04-28 16:46] LABS: Anion Gap 9 (3-11); Blood Urea Nitrogen 17 mg/dl (6-23); Calcium 10.2 mg/dl (8.6-10.3); Carbon Dioxide 27 mmol/L (21-32); Chloride 91 mmol/L (98-107); Creatinine Clr Calc Pharmacy 45.2 ml/min; Glucose 104 mg/dl (70-99(Fasting)); Sodium 127 mmol/L (136-145)
[2025-04-28] MEDS: DICLOFENAC SOD 1% GEL 100 GM TUBE EXT SCH (21:18)
[2025-04-28 23:18] LABS: Anion Gap 8.0 (3-11); Blood Urea Nitrogen 17.0 mg/dl (6-23); Calcium 9.4 mg/dl (8.6-10.3); Carbon Dioxide 29.0 mmol/L (21-32); Chloride 91.0 mmol/L (98-107); Creatinine Clr Calc Pharmacy 44.6 ml/min; Glucose 116.0 mg/dl (70-99(Fasting)); Potassium 3.6 mmol/L (3.5-5.1); Sodium 128.0 mmol/L (136-145)
[2025-04-29 06:33] LABS: Hematocrit (blood only) 32.6 % (37.0-47.0); Hemoglobin 11.0 g/dL (12.0-16.0); Immature Granulocytes # (auto) 0.05 K/uL (0.01-0.20); Immature Granulocytes % (auto) 0.5 %; Mean Corpuscular Hemoglobin 32.5 pg (25.0-34.0); Mean Corpuscular Volume 96.4 fL (80.0-100.0); Platelet Count 192 K/uL (130-400); RDW Standard Deviation 49.7 fL (36.4-46.3); Red Blood Count 3.38 M/uL (4.20-5.40); White Blood Count 9.16 K/ul (4.8-10.8)
[2025-04-29 06:54] LABS: Magnesium 1.9 mg/dl (1.7-2.4)
--- NOTE | 2025-04-29 14:20 | Hospitalist Progress Note ---
Date of Service April 29, 2025 Assessment & Plan (1) CHF (congestive heart failure): Plan: 85-year-old female with past medical history significant for SIADH, hypothyroidism, hyperlipidemia, peripheral vascular disease, chronic heart failure with preserved ejection fraction, atrial fibrillation, hypertension, CKD stage IIIb, venous insufficiency, hepatic cirrhosis, GERD, macular degeneration right eye, history of aspiration pneumonitis, generalized anxiety disorder, transaminitis who lives alone at home and ambulates with a walker comes because of worsening lower extremity edema. Patient states since yesterday morning lower extremity getting more swollen left greater than right. Denies any shortness of breath. Denies any chest pain. Has some abdominal discomfort. Normal bowel and bladder movements. Afebrile. Has some cough. Denies any head ache. Vision is okay. No runny nose or sore throat. Somewhat hard of hearing. Afebrile. Hemodynamics are okay.Patient lives alone but gets caregiver 4 times a week. Patient states family is in town.. Acute on chronic diastolic CHF Worsening lower extremity edema Will follow chest x-ray At home on Lasix 40 mg twice daily Will place on IV Lasix 40 twice daily Ultrasound did not show any evidence of DVT on the left leg Echo of the heart showed normal LV function, EF 50 to 55%, RV is normal in size and function, there is moderate to severe mitral regurgitation She has been feeling much better and the swelling of the leg on the left side has improved a lot She denies any symptoms of CHF and she has a cumulative fluid balance of -1275 mL Hyponatremia Sodium 124 History of SIADH Sodium generally in low 130s Will follow urine sodium, urine osmolality, serum osmolality Slow correction Getting IV Lasix BMP every 6 hours Nephrology consult for further recommendations Sodium level has gone up to 128 Hypothyroidism On Synthyroid Peripheral vascular disease On aspirin Hypertension On amlodipine, diuretics, metoprolol succinate We will monitor History of A-fib On amiodarone, metoprolol succinate and full dose aspirin Not on anticoagulation because of history of falls and prior GI bleeding General anxiety disorder On BuSpar as needed CKD stage IIIb Creatinine 0.8 Will follow labs DVT prophylaxis Heparin subcu Disposition Telemetry CODE STATUS DNR/DNI as per my discussion with the patient Will get PT OT evaluation for possible discharge in a day or 2 I spent a total of 53 minutes examining the patient, answering all of his questions, reviewing the medications and test results and planning of care Dr Deborah Moses Admission and Anticipated Discharge Date Admission Date: April 28, 2025 Subjective 04/29/2025 The patient was seen and examined in telemetry unit She has been feeling much better and the swelling of the left leg has improved a lot Denies any significant abdominal pain, nausea and/or vomiting Review of Systems Review of Systems: All systems reviewed and are unremarkable except as noted below Physical Exam Physical Exam: Lying in bed without any acute distress Constitutional: + ill appearing and + thin ENMT: external ear and nose normal, oropharynx normal Neck: trachea midline, no thyromegaly Respiratory: no respiratory distress Auscultation: lungs clear to auscultation bilaterally Cardiovascular: Rate/Rhythm: regular rate, regular rhythm and + bradycardic Heart Sounds: normal S1, normal S2 and + murmur Extremities: + edema (Trace edema bilaterally) Gastrointestinal (Abdomen): Inspection/Auscultation: normal bowel sounds; abdomen not distended Percussion/Palpation: abdomen soft; abdomen nontender Musculoskeletal: No acute arthritis involving any of the joint Neurologic: normal touch/pain/proprioception and moves all extremities; no focal motor deficits Lymphatic: no cervical or axillary lymphadenopathy Results & Data Results & Data Vital Signs (Past 12 Hours) Vital Signs Temp Pulse Pulse Resp BP Pulse Ox O2 Del Method 04/29/25 13:54 58 L 04/29/25 08:00 55 L 04/29/25 07:59 36.7 C 60 19 128/55 L 98 Nasal Cannula 04/29/25 03:22 36.8 C 60 18 117/73 99 Nasal Cannula O2 Flow Rate 04/29/25 13:54 04/29/25 08:00 04/29/25 07:59 2 04/29/25 03:22 2 Laboratory Results Short CBC 04/29/25 Range/Units 06:04 WBC 9.16 (4.8-10.8) K/ul Hgb 11.0 L (12.0-16.0) g/dL Hct 32.6 L (37.0-47.0) % Plt Count 192 (130-400) K/uL BMP 04/28/25 04/28/25 04/28/25 16:02 16:53 22:34 Sodium 127 L 128 L Potassium TNP 3.6 3.6 Chloride 91 L 91 L Carbon Dioxide 27 29 BUN 17 17 Creatinine 0.72 0.73 Glucose 104 H 116 H Calcium 10.2 9.4 Medications Administered Current Inpatient Medications Acetaminophen (Acetaminophen 325 Mg Tab) 650 mg PO Q4H PRN PRN Reason: Pain or Fever Stop: 05/28/25 07:15 Albuterol (Albuterol Hfa 8 Gm Inhaler) 2 puffs INH Q4H PRN PRN Reason: Shortness Of Breath Or Wheezing Stop: 05/28/25 07:15 Amiodarone HCl (Amiodarone 200 Mg Tab) 200 mg PO DAILY [facility] Stop: 05/28/25 08:59 Last Admin: 04/29/25 09:12 Dose: 200 mg Amlodipine Besylate (Amlodipine Besylate 5 Mg Tab) 5 mg PO DAILY [facility] Stop: 05/28/25 08:59 Last Admin: 04/29/25 09:10 Dose: 5 mg Ascorbic Acid (Ascorbic Acid 500 Mg Tab) 500 mg PO DAILY [facility] Stop: 05/28/25 08:59 Last Admin: 04/29/25 09:12 Dose: 500 mg Aspirin (Aspirin 325 Mg Ectab) 325 mg PO DAILY [facility] Stop: 05/28/25 08:59 Last Admin: 04/29/25 09:10 Dose: 325 mg Buspirone HCl (Buspirone 5 Mg Tab) 5 mg PO BID PRN PRN Reason: Anxiety Stop: 05/28/25 07:15 Calcium Polycarbophil (Calcium Polycarbophil 625mg Tab) 625 mg PO DAILY [facility] Stop: 05/28/25 08:59 Last Admin: 04/29/25 09:10 Dose: 625 mg Calcium/Vitamin D (Calcium 600mg + Vit D 400 Iu Tab) 1 tab PO DAILY [facility] Stop: 05/28/25 08:59 Last Admin: 04/29/25 09:11 Dose: 1 tab Cyanocobalamin (Cyanocobalamin (B-12) 500 Mcg Tablet) 1,000 mcg PO Q2D [facility] Stop: 05/28/25 07:29 Last Admin: 04/28/25 09:15 Dose: 1,000 mcg Diclofenac Sodium (Diclofenac Sod 1% Gel 100 Gm Tube) 2 gm EXT BID [facility]; Protocol Stop: 05/28/25 20:59 Last Admin: 04/29/25 09:53 Dose: 2 gm Furosemide (Furosemide 40 Mg/4 Ml Vial) 40 mg IV Q8H [facility] Stop: 05/28/25 14:29 Last Admin: 04/29/25 06:18 Dose: 40 mg Heparin Sodium (Porcine) (Heparin Sod 5,000 Unit/0.5 Ml Vial) 5,000 units SQ Q8 [facility] Stop: 05/28/25 13:59 Last Admin: 04/29/25 06:18 Dose: Not Given Hydroxyzine HCl (Hydroxyzine Hcl 10 Mg Tab) 10 mg PO Q6H PRN PRN Reason: Anxiety Stop: 05/28/25 07:15 Lactobacillus Acidophilus (Advanced Probiotic 625 Mg Capsule) 625 mg PO DAILY [facility] Stop: 05/28/25 08:59 Last Admin: 04/29/25 09:11 Dose: 625 mg Levothyroxine Sodium ([facility]othyroxine Sodium 75 Mcg Tablet) [facility] Stop: 05/28/25 07:29 Last Admin: 04/29/25 06:18 Dose: 75 mcg Magnesium Oxide (Magnesium Oxide 400 Mg Tab) 400 mg PO DAILY [facility] Stop: 05/28/25 08:59 Last Admin: 04/29/25 09:11 Dose: 400 mg Methenamine Hippurate (Methenamine Hippurate 1 Gm Tab) 1 gm PO BID [facility] Stop: 05/28/25 08:59 Last Admin: 04/29/25 09:11 Dose: 1 gm Metoprolol Succinate (Metoprolol Succ 50mg Ext Rel Tab) 50 mg PO BID [facility] Stop: 05/28/25 08:59 Last Admin: 04/29/25 09:12 Dose: 50 mg Multivitamins (Multivitamin Tab) 1 tab PO QAM [facility] Stop: 05/28/25 08:59 Last Admin: 04/29/25 09:10 Dose: 1 tab Nitroglycerin (Nitroglycerin Sl 0.4 Mg/Tab Tab) 0.4 mg SL Q5M PRN PRN Reason: Chest Pain Stop: 05/28/25 07:15 Polyethylene Glycol (Polyethylene (Miralax) 17 Gm Pack) 17 gm PO DAILY PRN PRN Reason: Constipation Stop: 05/28/25 07:15 Potassium Chloride (Potassium Chloride 10 Meq Tabcr) 20 meq PO DAILY [facility] Stop: 05/28/25 08:59 Last Admin: 04/29/25 09:33 Dose: 20 meq
--- NOTE | 2025-04-29 15:33 | Nephrology Progress Note ---
Date of Service April 29, 2025 Assessment & Plan Admission and Anticipated Discharge Date Admission Date: April 28, 2025 Subjective Assessment & Plan (1) Hyponatremia: have to call this as Hypervolemic Hyponatremia from CHF. She may also have a low Solute diet. Given CHF as the main trigger cannot really put much emphasis on the urine Osm na did get better with iv lasix. now up to 128 So will continue same. Continue lasix 40 iv q8hr. Check BMP every 24 hrs now (2) (HFpEF) heart failure with preserved ejection fraction: Does have e/o CHF and Pl effuion and also edema. Conitnue lasix 40 iv q8hr. Will also raise home lasix dose at discharge. S--no new issues. less edema now and not SOB. Making urine ?? amount ROS--see HPi. 12 systems otherwise negative Physical Exam Physical Exam: General- Not in acute distress. very coherent and sharp. Neck- supple, no JVD. Lungs- b/l diminished and rhonchi Heart- regular rhythm; no murmur Abdomen- soft, nontender, no distension Extremities- b/l lower extremity +1 edema in left and trace in rt. Neuro- alert, oriented Results & Data Vital Signs (Past 12 Hours) Vital Signs Temp Pulse Pulse Resp BP Pulse Ox O2 Del Method 04/29/25 14:44 36.6 C 58 L 24 120/58 L 92 Room Air 04/29/25 13:54 58 L 04/29/25 08:00 55 L 04/29/25 07:59 36.7 C 60 19 128/55 L 98 Nasal Cannula O2 Flow Rate 04/29/25 14:44 04/29/25 13:54 04/29/25 08:00 04/29/25 07:59 2
[2025-04-30 06:31] LABS: Anion Gap 6.0 (3-11); Blood Urea Nitrogen 29.0 mg/dl (6-23); Calcium 9.4 mg/dl (8.6-10.3); Carbon Dioxide 33.0 mmol/L (21-32); Chloride 93.0 mmol/L (98-107); Creatinine Clr Calc Pharmacy 37.2 ml/min; Glucose 92.0 mg/dl (70-99(Fasting)); Potassium 4.0 mmol/L (3.5-5.1); Sodium 132.0 mmol/L (136-145)
[2025-04-30 07:52] VITALS: RESP 19
[2025-04-30 10:42] VITALS: BP 116/53; PULSE 57; TEMP 97.7; O2SAT 94
--- NOTE | 2025-04-30 11:21 | Nephrology Progress Note ---
Date of Service April 30, 2025 Assessment & Plan Admission and Anticipated Discharge Date Admission Date: April 28, 2025 Subjective Assessment & Plan (1) Hyponatremia: have to call this as Hypervolemic Hyponatremia from CHF. She may also have a low Solute diet. Given CHF as the main trigger cannot really put much emphasis on the urine Osm na did get better with iv lasix. now up to 132 now Continue IV Lasix today. will D/c IV lasix and change to oral demadex from tomorrow for discharge plan (2) (HFpEF) heart failure with preserved ejection fraction: Does have e/o CHF and Pl effuion and also edema. Can stop Will also raise home lasix dose at discharge. S--no new issues. less edema now and not SOB. Making urine ?? amount ROS--see HPi. 12 systems otherwise negative Physical Exam Physical Exam: General- Not in acute distress. very coherent and sharp. Neck- supple, no JVD. Lungs- b/l diminished and rhonchi Heart- regular rhythm; no murmur Abdomen- soft, nontender, no distension Extremities- no edema now Neuro- alert, oriented Results & Data Vital Signs (Past 12 Hours) Vital Signs Temp Pulse Pulse Resp BP Pulse Ox O2 Del Method 04/30/25 10:41 36.5 C 57 L 19 116/53 L 94 Room Air 04/30/25 08:00 Room Air 04/30/25 08:00 56 L 04/30/25 07:51 36.6 C 57 L 19 124/51 L 92 Room Air 04/30/25 02:53 36.5 C 58 L 16 128/63 94 Nasal Cannula O2 Flow Rate 04/30/25 10:41 04/30/25 08:00 04/30/25 08:00 04/30/25 07:51 04/30/25 02:53 2
--- NOTE | 2025-04-30 12:53 | Hospitalist Progress Note ---
Date of Service April 30, 2025 Assessment & Plan (1) CHF (congestive heart failure): Plan: 85-year-old female with past medical history significant for SIADH, hypothyroidism, hyperlipidemia, peripheral vascular disease, chronic heart failure with preserved ejection fraction, atrial fibrillation, hypertension, CKD stage IIIb, venous insufficiency, hepatic cirrhosis, GERD, macular degeneration right eye, history of aspiration pneumonitis, generalized anxiety disorder, transaminitis who lives alone at home and ambulates with a walker comes because of worsening lower extremity edema. Patient states since yesterday morning lower extremity getting more swollen left greater than right. Denies any shortness of breath. Denies any chest pain. Has some abdominal discomfort. Normal bowel and bladder movements. Afebrile. Has some cough. Denies any head ache. Vision is okay. No runny nose or sore throat. Somewhat hard of hearing. Afebrile. Hemodynamics are okay.Patient lives alone but gets caregiver 4 times a week. Patient states family is in town.. Acute on chronic diastolic CHF Worsening lower extremity edema Will follow chest x-ray At home on Lasix 40 mg twice daily Will place on IV Lasix 40 twice daily Ultrasound did not show any evidence of DVT on the left leg Echo of the heart showed normal LV function, EF 50 to 55%, RV is normal in size and function, there is moderate to severe mitral regurgitation She has been feeling much better and the swelling of the leg on the left side has improved a lot She denies any symptoms of CHF and she has a cumulative fluid balance of -1275 mL Remains stable without any significant symptoms No signs and or symptoms of fluid overload and the leg swelling is resolved Hyponatremia Sodium 124 History of SIADH Sodium generally in low 130s Will follow urine sodium, urine osmolality, serum osmolality Slow correction Getting IV Lasix BMP every 6 hours Nephrology consult for further recommendations Sodium level has been normal at 132 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 Hypothyroidism On Synthyroid Peripheral vascular disease On aspirin Hypertension On amlodipine, diuretics, metoprolol succinate We will monitor History of A-fib On amiodarone, metoprolol succinate and full dose aspirin Not on anticoagulation because of history of falls and prior GI bleeding General anxiety disorder On BuSpar as needed CKD stage IIIb Creatinine 0.8 Will follow labs DVT prophylaxis Heparin subcu Disposition Telemetry CODE STATUS DNR/DNI as per my discussion with the patient Will get PT OT evaluation for possible discharge in a day or 2 I spent a total of 37 minutes examining the patient, answering all of his questions, reviewing the medications and test results and planning of care Dr Deborah Moses Admission and Anticipated Discharge Date Admission Date: April 28, 2025 Subjective 04/29/2025 The patient was seen and examined in telemetry unit She has been feeling much better and the swelling of the left leg has improved a lot Denies any significant abdominal pain, nausea and/or vomiting 04/30/2025 The patient was seen and examined in telemetry unit She has been feeling much better and wants to go home today Her leg swelling is better and does not have any other significant symptoms Review of Systems Review of Systems: All systems reviewed and are unremarkable except as noted below Physical Exam Physical Exam: Lying in bed without any acute distress Constitutional: + ill appearing and + thin ENMT: external ear and nose normal, oropharynx normal Neck: trachea midline, no thyromegaly Respiratory: no respiratory distress Auscultation: lungs clear to auscultation bilaterally Cardiovascular: Rate/Rhythm: regular rate, regular rhythm and + bradycardic Heart Sounds: normal S1, normal S2 and + murmur Extremities: + edema (Trace edema bilaterally) Gastrointestinal (Abdomen): Inspection/Auscultation: normal bowel sounds; abdomen not distended Percussion/Palpation: abdomen soft; abdomen nontender Musculoskeletal: No acute arthritis involving any of the joint Neurologic: normal touch/pain/proprioception and moves all extremities; no focal motor deficits Lymphatic: no cervical or axillary lymphadenopathy Results & Data Results & Data Vital Signs (Past 12 Hours) Vital Signs Temp Pulse Pulse Resp BP Pulse Ox O2 Del Method 04/30/25 10:41 36.5 C 57 L 19 116/53 L 94 Room Air 04/30/25 08:00 Room Air 04/30/25 08:00 56 L 04/30/25 07:51 36.6 C 57 L 19 124/51 L 92 Room Air 04/30/25 02:53 36.5 C 58 L 16 128/63 94 Nasal Cannula O2 Flow Rate 04/30/25 10:41 04/30/25 08:00 04/30/25 08:00 04/30/25 07:51 04/30/25 02:53 2 Laboratory Results [facility] 04/30/25 05:35 Sodium 132 L Potassium 4.0 Chloride 93 L Carbon Dioxide 33 H BUN 29 H Creatinine 0.84 Glucose 92 Calcium 9.4 Medications Administered Current Inpatient Medications Acetaminophen (Acetaminophen 325 Mg Tab) 650 mg PO Q4H PRN PRN Reason: Pain or Fever Stop: 05/28/25 07:15 Albuterol (Albuterol Hfa 8 Gm Inhaler) 2 puffs INH Q4H PRN PRN Reason: Shortness Of Breath Or Wheezing Stop: 05/28/25 07:15 Amiodarone HCl (Amiodarone 200 Mg Tab) 200 mg PO DAILY [facility] Stop: 05/28/25 08:59 Last Admin: 04/30/25 08:13 Dose: 200 mg Amlodipine Besylate (Amlodipine Besylate 5 Mg Tab) 5 mg PO DAILY [facility] [place] Stop: 05/28/25 08:59 Last Admin: 04/30/25 08:13 Dose: 5 mg Ascorbic Acid (Ascorbic Acid 500 Mg Tab) 500 mg PO DAILY [facility] [place] Stop: 05/28/25 08:59 Last Admin: 04/30/25 08:13 Dose: 500 mg Aspirin (Aspirin 325 Mg Ectab) 325 mg PO DAILY [facility] [place] Stop: 05/28/25 08:59 Last Admin: 04/30/25 08:13 Dose: 325 mg Buspirone HCl (Buspirone 5 Mg Tab) 5 mg PO BID PRN PRN Reason: Anxiety Stop: 05/28/25 07:15 Calcium Polycarbophil (Calcium Polycarbophil 625mg Tab) 625 mg PO DAILY [facility] [place] Stop: 05/28/25 08:59 Last Admin: 04/30/25 08:12 Dose: 625 mg Calcium/Vitamin D (Calcium 600mg + Vit D 400 Iu Tab) 1 tab PO DAILY [facility] [place] Stop: 05/28/25 08:59 Last Admin: 04/30/25 08:13 Dose: 1 tab Cyanocobalamin (Cyanocobalamin (B-12) 500 Mcg Tablet) 1,000 mcg PO Q2D [facility] [place] Stop: 05/28/25 07:29 Last Admin: 04/30/25 07:20 Dose: 1,000 mcg Diclofenac Sodium (Diclofenac Sod 1% Gel 100 Gm Tube) 2 gm EXT BID [facility] [place]; Protocol Stop: 05/28/25 20:59 Last Admin: 04/30/25 08:14 Dose: 2 gm Furosemide (Furosemide 40 Mg/4 Ml Vial) 40 mg IV Q8H [facility] [place] Stop: 05/28/25 14:29 Last Admin: 04/30/25 05:50 Dose: 40 mg Heparin Sodium (Porcine) (Heparin Sod 5,000 Unit/0.5 Ml Vial) 5,000 units SQ Q8 [facility] [place] Stop: 05/28/25 13:59 Last Admin: 04/30/25 05:38 Dose: Not Given Hydroxyzine HCl (Hydroxyzine Hcl 10 Mg Tab) 10 mg PO Q6H PRN PRN Reason: Anxiety Stop: 05/28/25 07:15 Lactobacillus Acidophilus (Advanced Probiotic 625 Mg Capsule) 625 mg PO DAILY [facility] Stop: 05/28/25 08:59 Last Admin: 04/30/25 08:13 Dose: 625 mg Levothyroxine Sodium (Levothyroxine Sodium 75 Mcg Tablet) 75 mcg PO DAILYBB [facility] [place] Stop: 05/28/25 07:29 Last Admin: 04/30/25 05:50 Dose: 75 mcg Magnesium Oxide (Magnesium Oxide 400 Mg Tab) 400 mg PO DAILY [facility] [place] Stop: 05/28/25 08:59 Last Admin: 04/30/25 08:17 Dose: 400 mg Methenamine Hippurate (Methenamine Hippurate 1 Gm Tab) 1 gm PO BID [facility] [place] Stop: 05/28/25 08:59 Last Admin: 04/30/25 08:13 Dose: 1 gm Metoprolol Succinate (Metoprolol Succ 50mg Ext Rel Tab) 50 mg PO BID [facility] [place] Stop: 05/28/25 08:59 Last Admin: 04/30/25 08:13 Dose: 50 mg Multivitamins (Multivitamin Tab) 1 tab PO QAM [facility] [place] Stop: 05/28/25 08:59 Last Admin: 04/30/25 08:13 Dose: 1 tab Nitroglycerin (Nitroglycerin Sl 0.4 Mg/Tab Tab) 0.4 mg SL Q5M PRN PRN Reason: Chest Pain Stop: 05/28/25 07:15 Polyethylene Glycol (Polyethylene (Miralax) 17 Gm Pack) 17 gm PO DAILY PRN PRN Reason: Constipation Stop: 05/28/25 07:15 Potassium Chloride (Potassium Chloride 10 Meq Tabcr) 20 meq PO DAILY [facility] [place] Stop: 05/28/25 08:59 Last Admin: 04/30/25 08:17 Dose: 20 meq
--- NOTE | 2025-04-30 16:57 | Discharge Summary ---
Date of Service April 30, 2025 Admission HPI Per Admitting Provider 85-year-old female with past medical history significant for SIADH, hypothyroidism, hyperlipidemia, peripheral vascular disease, chronic heart failure with preserved ejection fraction, atrial fibrillation, hypertension, CKD stage IIIb, venous insufficiency, hepatic cirrhosis, GERD, macular degeneration right eye, history of aspiration pneumonitis, generalized anxiety disorder, transaminitis who lives alone at home and ambulates with a walker comes because of worsening lower extremity edema. Patient states since yesterday morning lower extremity getting more swollen left greater than right. Denies any shortn ess of breath. Denies any chest pain. Has some abdominal discomfort. Normal bowel and bladder movements. Afebrile. Has some cough. Denies any headache. Vision is okay. No runny nose or sore throat. Somewhat hard of hearing. Afebrile. Hemodynamics are okay.Patient lives alone but gets caregiver 4 times a week. Patient states family is in town.. Past medical history. As mentioned above. Past surgical history. Breast lesion excision. Laparoscopic cholecystectomy. Inguinal hernia repair. Total abdominal hysterectomy with removal of tubes. Umbilical hernia repair. Social history. . No smoking. No alcohol use. No drug use. Family history. No family history on file. Admission Exam Per Admitting Provider Physical Exam: General- Not in acute distress. Head- atraumatic Eyes- PERRL. ENT- oropharynx clear Neck- supple, no JVD. Lungs- clear to auscultation no wheezing or crackles Heart- regular rhythm; no murmur, no gallop. Abdomen- normal bowel sounds, soft, nontender, no distension Extremities- b/l lower extremity +2 edema present, no drainage seen Neuro- alert, oriented hard of hearing, PERRL no facial palsy; no dysarthria; moves extremities Principal Diagnosis Acute on chronic diastolic heart failure, hyponatremia Discharge Exam Lying in bed without any acute distress Constitutional + ill appearing and + thin ENMT external ear and nose normal, oropharynx normal Neck trachea midline, no thyromegaly Respiratory no respiratory distress Auscultation: lungs clear to auscultation bilaterally Cardiovascular Rate/Rhythm: regular rate, regular rhythm and + bradycardic Heart Sounds: normal S1, normal S2 and + murmur Extremities: + edema (Trace edema bilaterally) Gastrointestinal (Abdomen) Inspection/Auscultation: normal bowel sounds; abdomen not distended Percussion/Palpation: abdomen soft; abdomen nontender Neurologic normal touch/pain/proprioception and moves all extremities; no focal motor deficits Lymphatic no cervical or axillary lymphadenopathy Discharge Data Allergies Allergy/AdvReac Type Severity Reaction Status Date / Time Quinolones Allergy Intermediate HIVES Verified 01/18/25 14:53 dabigatran etexilate Allergy Unknown ON Verified 01/18/25 14:53 [facility] metronidazole AdvReac Intermediate GI SYMPTOMS Verified 01/18/25 14:53 sulfamethoxazole AdvReac Intermediate Diarrhea Verified 01/18/25 14:53 trimethoprim AdvReac Intermediate Diarrhea Verified 01/18/25 14:53 Consultations 04/28/25 05:05 ED Decision to Admit Stat 04/28/25 07:16 Consult Nephrology Routine Ordered Studies 04/28/25 03:25 US venous doppler [facility] Hospital Course (1) CHF (congestive heart failure): 85-year-old female with past medical history significant for SIADH, hypothyroidism, hyperlipidemia, peripheral vascular disease, chronic heart failure with preserved ejection fraction, atrial fibrillation, hypertension, CKD stage IIIb, venous insufficiency, hepatic cirrhosis, GERD, macular degeneration right eye, history of aspiration pneumonitis, generalized anxiety disorder, transaminitis who lives alone at home and ambulates with a walker comes because of worsening lower extremity edema. Patient states since yesterday morning lower extremity getting more swollen left greater than right. Denies any shortness of breath. Denies any chest pain. Has some abdominal discomfort. Normal bowel and bladder movements. Afebrile. Has some cough. Denies any headache. Vision is okay. No runny nose or sore throat. Somewhat hard of hearing. Afebrile. Hemodynamics are okay.Patient lives alone but gets caregiver 4 times a week. Patient states family is in town.. Acute on chronic diastolic CHF Worsening lower extremity edema Will follow chest x-ray At home on Lasix 40 mg twice daily Will place on IV Lasix 40 twice daily Ultrasound did not show any evidence of DVT on the left leg Echo of the heart showed normal LV function, EF 50 to 55%, RV is normal in size and function, there is moderate to severe mitral regurgitation She has been feeling much better and the swelling of the leg on the left side has improved a lot She denies any symptoms of CHF and she has a cumulative fluid balance of -1275 mL Remains stable without any significant symptoms No signs and or symptoms of fluid overload and the leg swelling is resolved Hyponatremia Sodium 124 History of SIADH Sodium generally in low 130s Will follow urine sodium, urine osmolality, serum osmolality Slow correction Getting IV Lasix BMP every 6 hours Nephrology consult for further recommendations Sodium level has been normal at 132 She 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 Hypothyroidism On Synthyroid Peripheral vascular disease On aspirin Hypertension On amlodipine, diuretics, metoprolol succinate We will monitor History of A-fib On amiodarone, metoprolol succinate and full dose aspirin Not on anticoagulation because of history of falls and prior GI bleeding General anxiety disorder On BuSpar as needed CKD stage IIIb Creatinine 0.8 Will follow labs DVT prophylaxis Heparin subcu Disposition Telemetry CODE STATUS DNR/DNI as per my discussion with the patient Will get PT OT evaluation for possible discharge in a day or 2 I spent a total of 37 minutes examining the patient, answering all of his questions, reviewing the medications and test results and planning of care Dr Deborah Moses Total Time Total Time Spent Total Time Spent (In Minutes): 40 Minutes Discharge Plan Discharge Items Patient Disposition: Home - Home Health Services Reason For Visit: LOWER EXTREMITY EDEMA, HYPONATREMIA Discharge Diagnosis: Acute on chronic diastolic heart failure, hyponatremia Condition on Discharge: Fair Activity: Resume your previous activity Non-emergency contact: Primary Care Provider Call non-emergency contact if: you have any medication questions and your symptoms worsen Follow-up/Referrals: Kodi Lizarraga MD [Primary Care Provider] - (Date & Time 05/08/2025 11:20 AM Provider: Kodi Lizarraga MD [facility], [facility] ) Diet: Heart Healthy Addtl Attending Provider Instructions: Please take precautions to avoid falls Take your medications as advised Please keep appointments with your provider. Pending Studies at Discharge: No Stand-Alone Forms: My Its Time Compliance, Smoking Cessation Medications and DC Order Prescriptions: New diclofenac sodium [Voltaren Arthritis Pain] 1 % Gel 2 g EXT BID Qty: 50 0RF Continued buspirone 5 mg tablet 5 mg PO BID PRN (Reason: Anxiety) potassium chloride 10 mEq capsule, extended release 20 meq PO DAILY metoprolol succinate 50 mg tablet extended release 24 hr 50 mg PO BID amlodipine 5 mg tablet 5 mg PO DAILY levothyroxine 75 mcg tablet 75 mcg PO DAILY methenamine hippurate 1 gram tablet 1 g PO BID Premarin 0.625 mg/gram cream 1 applic vaginal UD Rx Instructions: daily for 2weeks on and 2 weeks off albuterol sulfate 90 mcg/actuation HFA aerosol inhaler 2 puff INHALATION Q4H PRN (Reason: Shortness Of Breath Or Wheezing) hydroxyzine HCl 10 mg tablet 10 mg PO Q6H PRN (Reason: Anxiety) aspirin 325 mg Tablet 325 mg PO DAILY calcium polycarbophil [FiberCon] 625 mg Tablet 625 mg PO DAILY multivitamin with minerals Tablet 1 tab PO DAILY Systane Ultra 0.4-0.3 % Drops 1 drp OPHTHALMIC (EYE) QID calcium carbonate-vitamin D3 600 mg-10 mcg (400 unit) Tablet 1 tab PO DAILY magnesium oxide 400 mg magnesium Capsule 400 mg PO DAILY Probiotic 3 billion cell Capsule 3,000 mmu cells PO DAILY Rx Instructions: administer with a meal ascorbic acid (vitamin C) 500 mg Capsule 500 mg PO DAILY cyanocobalamin (vitamin B-12) 1,000 mcg Capsule 1,000 mcg PO Q2D PreserVision AREDS 2 Plus MV 200 mcg-15 mcg- 5 mg-1 mg Capsule 2 cap PO DAILY Changed furosemide 40 mg tablet 60 mg PO BID Qty: 90 0RF No Action amiodarone 200 mg tablet See Rx Instructions .ROUTE .COMPLEX Qty: 90 3RF Dose Instruction: take 1 tablet by mouth daily with dinner Rx Instructions: take 1 tablet by mouth daily with dinner Discharge Orders: Discharge Order (Routine); Ordered 04/30/25 Ordered By: Jimbo Moses Admission Data Admit Date/Time: 04/28/25 06:19 Attending Provider: Jimbo Moses Admit Provider: Leonel Eng Primary Care Provider: Kodi Lizarraga Other Providers: Leonel Eng; Tod Santizo Other Interventions: Discharge Summary Assessment (RN) Last Done: 04/30/25 15:00
== END 2025-04-30 15:20 | disposition home health service (06) | DRG 291 ==
LOC: ED 03:16 → EDINP 06:19 → 2E 07:17